=== PATIENT | female | born 1950 | race Caucasian/White ===

== ENCOUNTER 2020-01-12 12:48 | Outpatient (REF) | payer MEDICARE, OTHER, SELFPAY ==
--- NOTE | 2020-01-12 | MM_ITS ---
EXAMINATION: MM SCREENING DIGITAL BREAST TOMOSYNTHESIS, BILATERAL CLINICAL INFORMATION: Screening. Asymptomatic. Prior history reduction mammoplasty 2014. The lifetime risk of breast cancer based on the Tyrer-Cuzick Model is 4%. COMPARISON: Mammography: 08/27/2018, 08/03/2017, 12/06/2016, 07/14/2016 TECHNIQUE: Digital breast tomosynthesis is performed in both the craniocaudal and mediolateral oblique views along with computer-aided detection (CAD). Synthesized 2D images are generated from the tomosynthesis. FINDINGS: There are scattered areas of fibroglandular density (ACR BI-RADS breast composition Category b). Parenchymal pattern is similar to prior studies. There is bilateral stable scarring and scattered oil cysts and benign dystrophic calcifications consistent with the reduction mammoplasty. There is no significant mass or developing density or interval architectural abnormality. No interval abnormal calcifications. No significant changes. MM/MM tomosynthesis screening BI IMPRESSION: No significant changes from prior studies. ASSESSMENT: BI-RADS 2: Benign RECOMMENDATION: Routine annual mammography screening. This patient's information was entered into a reminder system with a target due date for their next mammogram.
--- NOTE | 2020-01-12 | MM_ITS ---
EXAMINATION: BONE DENSITOMETRY CLINICAL INDICATION: Other specified disorders of bone density and structure, multiple sites. COMPARISON: Previous BD dated 08/03/2017 and baseline BD dated 09/16/2007. TECHNIQUE: Using a [employer] DXA System (software version: 13.1) manufactured by [employer], dual-energy x-ray absorptiometry was performed of the lumbar spine and left hip. The images are of good technical quality. Summary results are attached. FINDINGS: AP SPINE L1-L2 (excluding L3 and L4): The data of L1-L4 has been changed to exclude the L3 and L4 vertebral bodies, because degenerative sclerosis at these levels may cause overestimation of lumbar spine density. Current: BMD 1.091 g/cm2, Z-score 0.6, T-score -0.6, normal, 7.3% increase from previous, 25.8% increase from baseline (<5% change is not significant). Prior: BMD 1.017 g/cm2. Baseline: BMD 0.867 g/cm2. LEFT FEMUR, NECK: Current: BMD 0.903 g/cm2, Z-score 0.3, T-score -1.0, normal. Prior: BMD 0.873 g/cm2. Baseline: BMD 0.858 g/cm2. LEFT FEMUR, TOTAL: Current: BMD 0.915 g/cm2, Z-score 0.3, T-score -0.7, normal, 4.3% decrease from previous, 1.4% decrease from baseline (<5% change is not significant). Prior: BMD 0.956 g/cm2. Baseline: BMD 0.928 g/cm2. IDENTIFIED RISK FACTORS: Secondary osteoporosis, thiazide, menopause, hysterectomy. HISTORY OF FRACTURE: None listed. MEDICATIONS: Vitamin D, ERT/SERMS. MM/XR DEXA axial skeleton IMPRESSION: 1. DIAGNOSIS: Normal bone density based on the lowest T-score value of -1.0 in the femoral neck applying World Health Organization criteria. 2. 10-YEAR FRACTURE RISK PREDICTION, FRAX: Major osteoporotic fracture (clinical spine, forearm, hip or shoulder) 8.0%. Hip fracture 0.6%. 3. Treatment Recommendations: NOF guidelines recommend consideration for treatment in postmenopausal women and men age 50 and older presenting with the following: -A hip or vertebral (clinical or morphometric) fracture. -T-score less than or equal to -2.5 at the femoral neck or spine after appropriate evaluation to exclude secondary causes. -Low bone mass at the hip or spine and a 10-year fracture probability by FRAX of greater than or equal to 3% for hip fracture or greater than or equal to 20% for major osteoporotic fracture based on the [place] adapted WHO algorithm. 4. Other Recommendations: All treatment decisions require clinical judgment and consideration of individual patient factors, including patient preferences, comorbidities, previous drug use, risk factors not captured in the FRAX model (e.g. frailty, falls, vitamin D deficiency, increased bone turnover, interval significant decline in bone density) and possible under or overestimation of fracture risk by FRAX. FUTURE SCAN RECOMMENDATION: People with diagnosed cases of osteoporosis or at high risk for fracture should have regular bone mineral density tests. For patients eligible for Medicare, routine testing is allowed once every 2 years. The testing frequency can be increased to one year for patients who have rapidly progressing disease, those who are receiving or discontinuing medical therapy to restore bone mass, or have additional risk factors.
== END 2020-01-12 12:49 | disposition home or self-care (01) ==
LOC: HO.MAMMO 12:48
PROVIDERS: PCP Internal Medicine; Visit Provider Internal Medicine
DX: Z13.820 Encounter for screening for osteoporosis (principal); Z12.31 Encounter for screening mammogram for malignant neoplasm of breast; M17.0 Bilateral primary osteoarthritis of knee; M47.816 Spondylosis without myelopathy or radiculopathy, lumbar region; G89.4 Chronic pain syndrome; M85.89 Other specified disorders of bone density and structure, multiple sites; Z78.0 Asymptomatic menopausal state; Z98.890 Other specified postprocedural states; Z79.899 Other long term (current) drug therapy
CPT/HCPCS: 77063; 77067; 77080; 99213

== ENCOUNTER → 2020-06-28 08:47 | Outpatient (BNVA) | payer MEDICARE, OTHER, SELFPAY | PROVIDERS: PCP Internal Medicine; Visit Provider Anesthesiology ==

== ENCOUNTER → 2020-07-12 08:18 | Outpatient (BNVA) | payer MEDICARE, OTHER, SELFPAY | PROVIDERS: PCP Internal Medicine; Visit Provider Anesthesiology | DX: M47.816 Spondylosis without myelopathy or radiculopathy, lumbar region (principal); M17.0 Bilateral primary osteoarthritis of knee; G89.4 Chronic pain syndrome; Z79.899 Other long term (current) drug therapy | CPT/HCPCS: 99212 ==

== ENCOUNTER → 2020-07-29 09:19 | Outpatient (BNVA) | payer MEDICARE, OTHER, SELFPAY | PROVIDERS: PCP Internal Medicine; Visit Provider Anesthesiology | DX: M47.816 Spondylosis without myelopathy or radiculopathy, lumbar region (principal); M17.0 Bilateral primary osteoarthritis of knee; G89.4 Chronic pain syndrome | CPT/HCPCS: 99212 ==

== ENCOUNTER → 2020-08-19 08:24 | Outpatient (BNVA) | payer MEDICARE, OTHER, SELFPAY | PROVIDERS: PCP Internal Medicine; Visit Provider Anesthesiology | DX: M47.816 Spondylosis without myelopathy or radiculopathy, lumbar region (principal); M17.0 Bilateral primary osteoarthritis of knee; G89.4 Chronic pain syndrome | CPT/HCPCS: 99212 ==

== ENCOUNTER → 2020-09-16 14:34 | Outpatient (BNVA) | payer MEDICARE, OTHER, SELFPAY | PROVIDERS: PCP Internal Medicine; Visit Provider Anesthesiology | DX: M96.1 Postlaminectomy syndrome, not elsewhere classified (principal); M47.816 Spondylosis without myelopathy or radiculopathy, lumbar region; M17.0 Bilateral primary osteoarthritis of knee; G62.9 Polyneuropathy, unspecified; G89.4 Chronic pain syndrome; Z88.8 Allergy status to other drugs, medicaments and biological substances | CPT/HCPCS: 99212 ==

== ENCOUNTER → 2020-10-18 08:30 | Outpatient (BNVA) | payer MEDICARE, OTHER, SELFPAY | PROVIDERS: PCP Internal Medicine; Visit Provider Anesthesiology | DX: M47.816 Spondylosis without myelopathy or radiculopathy, lumbar region (principal); M17.0 Bilateral primary osteoarthritis of knee; G89.4 Chronic pain syndrome; Z87.891 Personal history of nicotine dependence | CPT/HCPCS: 99212; J3300 ==

== ENCOUNTER → 2020-11-15 08:15 | Outpatient (BNVA) | payer MEDICARE, OTHER, SELFPAY | PROVIDERS: PCP Internal Medicine; Visit Provider Anesthesiology | DX: Z51.81 Encounter for therapeutic drug level monitoring (principal); M47.816 Spondylosis without myelopathy or radiculopathy, lumbar region; M17.0 Bilateral primary osteoarthritis of knee; G89.4 Chronic pain syndrome | CPT/HCPCS: 99212 ==

== ENCOUNTER 2020-11-23 06:31 | Outpatient (REF) | payer MEDICARE, OTHER, SELFPAY | END 2020-11-23 06:32 | disposition home or self-care (01) | LOC: HO.RADIR 06:31 | PROVIDERS: Visit Provider Anesthesiology | DX: Z13.89 Encounter for screening for other disorder (principal) ==

== ENCOUNTER → 2020-12-15 08:45 | Outpatient (BNVA) | payer MEDICARE, OTHER, SELFPAY | PROVIDERS: PCP Internal Medicine; Visit Provider Anesthesiology | DX: Z51.81 Encounter for therapeutic drug level monitoring (principal); M47.816 Spondylosis without myelopathy or radiculopathy, lumbar region; M17.0 Bilateral primary osteoarthritis of knee; G89.4 Chronic pain syndrome | CPT/HCPCS: 99212 ==

== ENCOUNTER 2020-12-28 06:13 | Outpatient (REF) | payer MEDICARE, OTHER, SELFPAY ==
--- NOTE | ~2020-12-28 | FL_ITS ---
EXAMINATION: XR FLUOROSCOPY WITH IMAGES CLINICAL INFORMATION: Spondylosis without myelopathy or radiculopathy. COMPARISON: None. TECHNIQUE: Fluoroscopy performed by Dr. Stratton. Fluoroscopy time: 0.3 minutes DAP: 1.42 Gycm2 Images: 2 FL/FL guidance in treatment room FINDINGS/IMPRESSION: Fluoroscopy was performed for procedural guidance. Please refer to the procedure report for more detailed findings.
== END 2020-12-28 06:14 | disposition home or self-care (01) ==
LOC: HO.RADIR 06:13
PROVIDERS: Visit Provider Anesthesiology
DX: M47.816 Spondylosis without myelopathy or radiculopathy, lumbar region (principal); G89.4 Chronic pain syndrome; M17.0 Bilateral primary osteoarthritis of knee; I10 Essential (primary) hypertension; Z79.899 Other long term (current) drug therapy
CPT/HCPCS: 62323; J3300; Q9967

== ENCOUNTER → 2021-01-12 08:58 | Outpatient (BNVA) | payer MEDICARE, OTHER, SELFPAY | PROVIDERS: PCP Internal Medicine; Visit Provider Anesthesiology | DX: Z51.81 Encounter for therapeutic drug level monitoring (principal); M47.816 Spondylosis without myelopathy or radiculopathy, lumbar region; M17.0 Bilateral primary osteoarthritis of knee; G89.4 Chronic pain syndrome | CPT/HCPCS: 99212 ==

== ENCOUNTER 2021-02-01 07:20 | Outpatient (REF) | payer MEDICARE, OTHER, SELFPAY ==
--- NOTE | ~2021-02-01 | MM_ITS ---
EXAMINATION: MM SCREENING DIGITAL BREAST TOMOSYNTHESIS, BILATERAL CLINICAL INFORMATION: Screening. Asymptomatic. Prior reduction mammoplasty 2014. The lifetime risk of breast cancer based on the Tyrer-Cuzick Model is 4%. COMPARISON: Mammography: 01/12/2020, 08/27/2018, 08/03/2017 TECHNIQUE: Digital breast tomosynthesis is performed in both the craniocaudal and mediolateral oblique views along with computer-aided detection (CAD). Synthesized 2D images are generated from the tomosynthesis. FINDINGS: There are scattered areas of fibroglandular density (ACR BI-RADS breast composition Category b). Parenchymal pattern is similar to prior studies and there is no interval mass or architectural abnormality or abnormal calcifications. Again, there are postsurgical changes with stable scarring and oil cysts and benign dystrophic calcifications consistent with the prior reduction mammoplasty. Nodularity central upper outer right breast is stable. Nodularity mid inner left breast is decreased. The axilla are unremarkable. MM/MM tomosynthesis screening BI IMPRESSION: No significant changes from prior exams. ASSESSMENT: BI-RADS 2: Benign RECOMMENDATION: Routine annual mammography screening. This patient's information was entered into a reminder system with a target due date for their next mammogram.
== END 2021-02-01 07:21 | disposition home or self-care (01) ==
LOC: HO.MAMMO 07:20
PROVIDERS: Visit Provider Internal Medicine
DX: Z12.31 Encounter for screening mammogram for malignant neoplasm of breast (principal)
CPT/HCPCS: 77063; 77067

== ENCOUNTER → 2021-02-14 08:38 | Outpatient (BNVA) | payer MEDICARE, OTHER, SELFPAY | PROVIDERS: PCP Internal Medicine; Visit Provider Anesthesiology | DX: Z51.81 Encounter for therapeutic drug level monitoring (principal); M47.816 Spondylosis without myelopathy or radiculopathy, lumbar region; M17.0 Bilateral primary osteoarthritis of knee; G89.4 Chronic pain syndrome | CPT/HCPCS: 99212 ==

== ENCOUNTER → 2021-03-17 08:22 | Outpatient (BNVA) | payer MEDICARE, OTHER, SELFPAY | PROVIDERS: PCP Internal Medicine; Visit Provider Anesthesiology | DX: Z51.81 Encounter for therapeutic drug level monitoring (principal); M47.816 Spondylosis without myelopathy or radiculopathy, lumbar region; M17.0 Bilateral primary osteoarthritis of knee; G89.4 Chronic pain syndrome | CPT/HCPCS: 99212 ==

== ENCOUNTER 2021-04-12 07:29 | Outpatient (REF) | payer MEDICARE, OTHER, SELFPAY ==
--- NOTE | ~2021-04-12 | FL_ITS ---
EXAMINATION: XR FLUOROSCOPY WITH IMAGES CLINICAL INFORMATION: Spondylosis with without myelopathy or radiculopathy. COMPARISON: None. TECHNIQUE: Fluoroscopy performed by Elizabeth Carl. Fluoroscopy time: 0.1 minutes DAP: 0.569 Gycm2 Images: 2 FINDINGS: There are 2 images AP and lateral of the sacrum revealing needle positioned caudally and contrast opacifying posterior epidural space. Visualized sacral and coccygeal bones are unremarkable. The SI joints are symmetrical and normal. FL/FL guidance in treatment room IMPRESSION: Fluoroscopy was provided to referring physician for pain management.
== END 2021-04-12 07:30 | disposition home or self-care (01) ==
LOC: HO.RADIR 07:29
PROVIDERS: Visit Provider Anesthesiology
DX: M47.816 Spondylosis without myelopathy or radiculopathy, lumbar region (principal); M17.0 Bilateral primary osteoarthritis of knee; G89.4 Chronic pain syndrome; M51.37 Other intervertebral disc degeneration, lumbosacral region
CPT/HCPCS: 62323; J3300; Q9967

== ENCOUNTER → 2021-04-14 08:39 | Outpatient (BNVA) | payer MEDICARE, OTHER, SELFPAY | PROVIDERS: PCP Internal Medicine; Visit Provider Anesthesiology ==

== ENCOUNTER → 2021-05-11 08:48 | Outpatient (BNVA) | payer MEDICARE, OTHER, SELFPAY | PROVIDERS: PCP Internal Medicine; Visit Provider Anesthesiology | DX: Z51.81 Encounter for therapeutic drug level monitoring (principal); F11.20 Opioid dependence, uncomplicated; M47.816 Spondylosis without myelopathy or radiculopathy, lumbar region; M17.0 Bilateral primary osteoarthritis of knee; G89.4 Chronic pain syndrome | CPT/HCPCS: 99212 ==

== ENCOUNTER → 2021-06-08 08:34 | Outpatient (BNVA) | payer MEDICARE, OTHER, SELFPAY | PROVIDERS: PCP Internal Medicine; Visit Provider Anesthesiology | DX: Z51.81 Encounter for therapeutic drug level monitoring (principal); F11.20 Opioid dependence, uncomplicated; M47.816 Spondylosis without myelopathy or radiculopathy, lumbar region; M17.0 Bilateral primary osteoarthritis of knee; G89.4 Chronic pain syndrome | CPT/HCPCS: 99212 ==

== ENCOUNTER → 2021-07-07 08:17 | Outpatient (BNVA) | payer MEDICARE, OTHER, SELFPAY | PROVIDERS: PCP Internal Medicine; Visit Provider Anesthesiology | DX: G89.4 Chronic pain syndrome (principal); M47.816 Spondylosis without myelopathy or radiculopathy, lumbar region; M17.0 Bilateral primary osteoarthritis of knee; M51.36 Other intervertebral disc degeneration, lumbar region; Z79.891 Long term (current) use of opiate analgesic | CPT/HCPCS: 99212 ==

== ENCOUNTER → 2021-08-04 08:33 | Outpatient (BNVA) | payer MEDICARE, OTHER, SELFPAY | PROVIDERS: PCP Internal Medicine; Visit Provider Anesthesiology | DX: Z79.899 Other long term (current) drug therapy (principal) ==

== ENCOUNTER 2021-08-19 05:46 | Outpatient (REF) | payer MEDICARE, OTHER, SELFPAY ==
--- NOTE | ~2021-08-19 | FL_ITS ---
EXAMINATION: XR FLUOROSCOPY WITH IMAGES CLINICAL INFORMATION: Lumbar radiculopathy COMPARISON: April 12, 2021 TECHNIQUE: Fluoroscopy performed by Hayley Colvin. Fluoroscopy time: 0.6 minutes DAP: 3.85 Gycm2 Images: 4 FINDINGS: Contrast is seen caudal to be sacrum with needles in place. FL/FL guidance in treatment room IMPRESSION: Fluoroscopy performed in the operating room for pain management procedure.
== END 2021-08-19 05:47 | disposition home or self-care (01) ==
LOC: HO.RADIR 05:46
PROVIDERS: Visit Provider Internal Medicine
DX: G89.4 Chronic pain syndrome (principal); M51.36 Other intervertebral disc degeneration, lumbar region; M51.16 Intervertebral disc disorders with radiculopathy, lumbar region
CPT/HCPCS: 62323; J3300

== ENCOUNTER → 2021-09-01 08:47 | Outpatient (BNVA) | payer MEDICARE, OTHER, SELFPAY | PROVIDERS: PCP Internal Medicine; Visit Provider Anesthesiology | DX: G89.4 Chronic pain syndrome (principal); M47.816 Spondylosis without myelopathy or radiculopathy, lumbar region; M17.0 Bilateral primary osteoarthritis of knee; M51.36 Other intervertebral disc degeneration, lumbar region; M70.62 Trochanteric bursitis, left hip; Z79.891 Long term (current) use of opiate analgesic | CPT/HCPCS: 99212 ==

== ENCOUNTER → 2021-09-29 09:06 | Outpatient (BNVA) | payer MEDICARE, OTHER, SELFPAY | PROVIDERS: PCP Internal Medicine; Visit Provider Anesthesiology | DX: M47.816 Spondylosis without myelopathy or radiculopathy, lumbar region (principal); M17.0 Bilateral primary osteoarthritis of knee; G89.4 Chronic pain syndrome; M51.36 Other intervertebral disc degeneration, lumbar region; M70.62 Trochanteric bursitis, left hip; Z79.891 Long term (current) use of opiate analgesic | CPT/HCPCS: 99212 ==

== ENCOUNTER 2021-10-10 06:06 | Outpatient (REF) | payer MEDICARE, OTHER, SELFPAY ==
[2021-10-10 11:35] LABS: Alanine Aminotransferase 12 U/L (0-31); Anion Gap 12 (12-20); Aspartate Amino Transferase 19 U/L (5-31); Blood Urea Nitrogen 13 mg/dL (9-16); Calcium 9.3 mg/dL (8.4-10.2); Carbon Dioxide 27 mmol/L (22-29); Chloride 104 mmol/L (96-108); Cholesterol 195 mg/dL; Estimated Glomerular Filt Rate > 60; Glucose Fasting 96 mg/dL (60-99); HDL Cholesterol 77 mg/dL; LDL Cholesterol Calculated 94 mg/dl; Potassium 4.3 mmol/L (3.3-5.1); Sodium 139 mmol/L (135-145); Triglycerides 123 mg/dL
== END 2021-10-10 06:07 | disposition home or self-care (01) ==
LOC: HO.HMGCLDS 06:06
PROVIDERS: Visit Provider Internal Medicine
DX: I10 Essential (primary) hypertension (principal); M85.89 Other specified disorders of bone density and structure, multiple sites; N95.9 Unspecified menopausal and perimenopausal disorder; E78.5 Hyperlipidemia, unspecified
CPT/HCPCS: 36415; 80048; 80061; 82306; 84450; 84460

== ENCOUNTER → 2021-10-31 08:55 | Outpatient (BNVA) | payer MEDICARE, OTHER, SELFPAY | PROVIDERS: PCP Internal Medicine; Visit Provider Anesthesiology | DX: Z79.899 Other long term (current) drug therapy (principal); Z79.891 Long term (current) use of opiate analgesic | CPT/HCPCS: 99211 ==

== ENCOUNTER → 2021-11-24 09:12 | Outpatient (BNVA) | payer MEDICARE, OTHER, SELFPAY | PROVIDERS: PCP Internal Medicine; Visit Provider Anesthesiology | DX: G89.4 Chronic pain syndrome (principal); M47.816 Spondylosis without myelopathy or radiculopathy, lumbar region; M17.0 Bilateral primary osteoarthritis of knee; M51.36 Other intervertebral disc degeneration, lumbar region; M70.62 Trochanteric bursitis, left hip; Z79.891 Long term (current) use of opiate analgesic | CPT/HCPCS: 99212 ==

== ENCOUNTER 2021-12-21 05:30 | Inpatient (IN) | payer MEDICARE, OTHER, SELFPAY ==
[2021-12-21] VITALS (9 sets, daily range): BP systolic 137–152; BP diastolic 56–88; PULSE 80–93; RESP 14–18; TEMP 36.4–36.8; O2SAT 96–100; BMI 31.1
--- NOTE | ~2021-12-21 | XR_ITS ---
EXAMINATION: XR CHEST CLINICAL INFORMATION: NG tube placement COMPARISON: 09/01/2013 TECHNIQUE: Frontal view of the chest was obtained. FINDINGS: NG tube tip is at the level the GE junction. The proximal port is in the distal esophagus. Low lung volumes. The cardiac silhouette is comparable to previous. Lung sullivan are grossly clear. Some mild left basilar atelectasis likely related to low lung volumes. XR/XR chest 1V IMPRESSION: ET tube tip at the level the GE junction. The proximal port is in the distal esophagus
--- NOTE | ~2021-12-21 | CT_ITS ---
EXAMINATION: CT ABDOMEN AND PELVIS WITHOUT CONTRAST CLINICAL INFORMATION: Abdominal pain with vomiting, question small bowel obstruction COMPARISON: 09/01/2013 TECHNIQUE: Multidetector volumetric imaging was performed from the superior aspect of the liver through the pubic symphysis. Sagittal and coronal reformatted images were obtained on the technologist's workstation. This CT examination was performed using dose optimization techniques as appropriate, variously including the following: *Automated exposure control *Adjustment of mA and/or kV according to patient size (this includes techniques or standardized protocols for targeted exams where dose is matched to indication/reason for exam; i.e. extremities or head) *Use of iterative reconstruction technique DLP: 693 mGy-cm FINDINGS: LUNG BASES: Mild subsegmental atelectasis. Coronary artery calcifications are present. LIVER, GALLBLADDER, AND BILIARY TREE: The liver is normal in size, shape, and attenuation. No focal hepatic lesion or biliary ductal dilatation is present. Patient is status post cholecystectomy. PANCREAS: Unremarkable. SPLEEN: Unremarkable. ADRENAL GLANDS: Unremarkable. KIDNEYS AND URETERS: The kidneys are normal in size, shape, and attenuation. No hydronephrosis, hydroureter, or calculi seen. No perinephric stranding. BLADDER: Unremarkable. GASTROINTESTINAL TRACT: Gastric band is present across the proximal stomach. There are several dilated fluid-filled small bowel loops in the left abdomen leading to a somewhat fecalized segment in the central abdomen. Beyond this region, bowel loops are collapsed, and overall configuration is consistent with small bowel obstruction. Large bowel is unremarkable. Patient appears to be status post appendectomy. Trace free fluid noted in the pelvis. No free air is seen. ABDOMINAL WALL: No significant hernia is appreciated. LYMPH NODES: Normal. VASCULAR: Moderately extensive atherosclerotic calcification is present. PELVIC VISCERA: Status post hysterectomy. OSSEOUS STRUCTURES: Degenerative changes are present in the lower lumbar spine. CT/CT abdomen pelvis wo IV con IMPRESSION: Small bowel obstruction with transition point in the region of a fecalized segment in the central abdomen. Trace free fluid in the pelvis, presumably reactive.
--- NOTE | 2021-12-21 05:56 | ED_ITS ---
HPI - Abdominal Pain General Chief Complaint: Abdominal Pain Stated Complaint: nausea and vomiting with abdominal pain Time Seen by Provider: 12/21/21 05:56 Source: patient Mode of arrival: EMS Limitations: no limitations History of Present Illness HPI narrative: Patient is 71 years old with history of IBS status post appendectomy and cholecystectomy been having cramping diffuse pain since yesterday 11:00 with na usea did not eat any food because of abdominal discomfort since pain started not passing any gas. No history of small-bowel obstruction in the past no fever no chills since 17:00 patient been vomiting multiple times mostly bilious patient had normal bowel movements yesterday morning Related Data Home Medications Medication Instructions Recorded Confirmed estradiol 2 mg tablet (Estrace) 2 mg PO DAILY 07/12/20 10/31/21 cholecalciferol (vitamin D3) 25 25 mcg PO DAILY 08/19/20 10/31/21 mcg (1,000 unit) capsule docusate sodium 100 mg capsule 100 mg PO DAILY 08/19/20 10/31/21 (Colace) magnesium 250 mg tablet 250 mg PO DAILY 12/15/20 10/31/21 Previous Rx's Medication Instructions Recorded atorvastatin 20 mg tablet 20 mg PO DAILY #90 tabs 03/22/21 hydrochlorothiazide 12.5 mg tablet 12.5 mg PO DAILY #90 tabs 03/22/21 trazodone 100 mg tablet 100 mg PO BEDTIME #90 tabs 03/22/21 amoxicillin 500 mg tablet 2,000 mg PO ONCE PRN prophylaxis 08/02/21 #4 tabs hydrocodone 5 mg-acetaminophen 325 1 tab PO BID PRN pain 30 days #60 11/24/21 mg tablet tabs Allergies Allergy/AdvReac Type Severity Reaction Status Date / Time buprenorphine [Belbuca] Allergy Unknown stomach Verified 11/24/21 09:28 upset NSAIDS Allergy Unknown Upset Verified 11/24/21 09:28 stomach Review of Systems Review of Systems Yes all other systems are reviewed and are negative PMFSH Past Medical History Medical History Bilateral primary osteoarthritis of knee Chronic pain syndrome Disc degeneration, lumbar Dyslipidemia Essential hypertension Irritable bowel syndrome Osteopenia of multiple sites Prolapse of anterior vaginal 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, lumbar region Surgical History H/O abdominoplasty History of carpal tunnel surgery History of cholecystectomy History of hysterectomy History of laparoscopic appendectomy History of lumbar laminectomy History of reduction mammoplasty History of tonsillectomy Hx of bariatric surgery Family History Family History Mother Diabetes mellitus Essential hypertension Cardiovascular disease Social History Social History Alcohol intake: never Patient Tobacco Use Status: Former Tobacco user Advance Directives: No Advance Directives Information Provided: Yes Physical Exam ED Vital Signs: Vital Signs - 24 hr 12/21/21 05:52 12/21/21 06:00 Temperature 97.9 F Pulse Rate 90 80 Respiratory Rate 18 18 Blood Pressure 140/66 H 149/81 H Pulse Oximetry 96 96 Oxygen Delivery Method Room Air Room Air BMI result Body Mass Index 31.1 Appearance: Alert. Oriented X3. No acute distress. Eyes: PERRLA, No Nystagmus ENT: Pharynx normal. Oral Mucosa moist Neck: Normal inspection. Neck supple. CVS: Normal heart rate and rhythm. Pulses normal. Respiratory: No respiratory distress. Equal air entry bilateral, no wheezing/rales/rhonchi Abdomen: Soft slightly distended with diffuse tenderness no rebound tenderness or guarding bowel sounds are sluggish no mass palpable, no CVA tenderness Skin: Skin warm and dry. Normal skin color. Normal skin turgor. Extremities: No lower extremity edema. No calf tenderness Neuro: Oriented X 3. No motor deficit. No sensory deficit.No cerebellar signs , cranial nerves II-XII intact MDM - Abdominal Pain MDM Narrative Medical decision making narrative: 715 Patient's small-bowel obstruction with prior history of appendectomy and cholecystectomy likely the adhesions causing the obstruction will put NG tube surgery consult. Labs are still pending will call surgery for admission Imaging Data CT scan - abdomen: Attestation: I personally reviewed and interpreted this imaging study as follows: Radiologist's impression: CT/CT abdomen pelvis wo IV con IMPRESSION: Small bowel obstruction with transition point in the region of a fecalized segment in the central abdomen. Trace free fluid in the pelvis, presumably reactive. Discharge Plan Discharge Clinical Impression: Small bowel obstruction Patient Disposition: Still a Patient Prescriptions: No Action hydrochlorothiazide 12.5 mg tablet 12.5 mg PO DAILY Qty: 90 4RF trazodone 100 mg tablet 100 mg PO BEDTIME Qty: 90 4RF atorvastatin 20 mg tablet 20 mg PO DAILY Qty: 90 4RF amoxicillin 500 mg tablet 2,000 mg PO ONCE PRN (Reason: prophylaxis) Qty: 4 0RF Rx Instructions: take one hour prior to procedure estradiol [Estrace] 2 mg tablet 2 mg PO DAILY docusate sodium [Colace] 100 mg capsule 100 mg PO DAILY cholecalciferol (vitamin D3) 25 mcg (1,000 unit) capsule 25 mcg PO DAILY magnesium 250 mg tablet 250 mg PO DAILY hydrocodone-acetaminophen 5-325 mg tablet 1 tab PO BID PRN (Reason: pain) 30 Days Qty: 60 0RF
[2021-12-21] MEDS: 0.9 % Sodium Chloride 1,000 ML 999 ML IV (06:20)
[2021-12-21] MEDS: ondansetron HCL 4 MG/2 ML VIAL IVPUSH ×2 (06:25→09:25)
[2021-12-21] MEDS: Morphine Sulfate 4 MG/ML CARTRIDGE IVPUSH (06:25)
--- OUTSIDE RECORDS SUMMARY | 2021-12-21 06:28 | XMS_ITS ---
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 Problem Other hammer M20.42 Active 7657642 [id number] toe(s) (acquired), left foot Problem Primary M19.072 Active 391755421 osteoarthritis, left ankle and foot ALLERGIES Substance Reaction Event Type Date Status Advil Unknown Drug Allergy May, Active NSAIDs stomach pain Drug Allergy May, Active Aspirin Unknown Drug Allergy May, Active ENCOUNTERS Encounter Location Date Diagnosis [address] Aug, [place] [address] [facility], [place] [address] [facility] May, [place] in left foot M79.672 [facility] [place] ; Primary osteo arthritis, [address] left ankle and f oot M19.072 ; Metata rsalgia, left foot M77.42 ; 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 and Other hammer toe (s) (acquired), left foot M20.[address] Sep, [place] in left foot M79.672 [place] ; Primary osteo arthritis, [address] left ankle and f oot M19.072 ; Metata rsalgia, left foot M77.42 and 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 Aug, [place] [address] July, [place] [address] July, [place] n in left foot M79.672 [place] ; Primary osteo arthritis, [address] left ankle and f oot M19.072 ; Metata rsalgia, left foot M77.42 and 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 July, Reshma n in Limb 729.5 ; [facility] [place] Calcaneal spur 726.73 and [address] Foreign Body 7[address] Aug, Ank le Sprain 845.00 ; [place] Arthralgia 719. 40 and [address] Arthritis - Dege nerative 719.[address] Aug, [place] [address] IMMUNIZATIONS Vaccine Route Administration Date Status COVID-19 [employer] Unknown Jan 14, 2021 Administered SOCIAL HISTORY Qualifiers Date Former Smoker REASON FOR REFERRAL FUNCTIONAL STATUS PLAN OF CARE Activity Details Pending Test X ray : Foot, left 3V Pending Test X ray : Foot, left 3V Pending Test X ray : Foot, right 2V Pending Test X ray : Ankle, right 3V Future/Pending Procedure , [id number]/INJECT, J OINT/BURSA VITAL SIGNS Height 5 ft 2 in in 2021-06-01 Weight 175 lbs 2021-06-01 BMI 32.00 kg/m2 2021-06-01 Heart Rate 80 /min 2013-07-28 Blood pressure systolic 125 mm Hg 2021-06-01 Blood pressure diastolic 76 mm Hg 2021-06-01 MEDICATIONS Medication Instructions Dosage Frequency Start End Duration Statu s Date Date Lipitor 20 MG Orally Once a 1 tablet 24h Not -Long day ing Lyrica 75 MG Active Vicodin 5-300 MG Active Premarin 1.25 MG 24h Not-Long ing traZODone HCl 100 MG Orally Once a 1 tablet 24h 30 d ay(s) Active day at bedtime Methocarbamol 750 MG Orally every 4 1 tablet 4h 30 day(s) Active hrs Estradiol Not-Long ing Atorvastatin Calcium Orally Once a 1 tablet 24h 30 d ay(s) Active 20 MG day Evista Not-Long ing hydroCHLOROthiazide Acti ve 12.5 MG Dulcolax 10 MG Active Estrace 2 MG Orally Daily 1 tablet 30 day(s) Act radha for Three Weeks, 1 Week off Colace 100 MG Orally once 2 capsules 24h Act radha daily Soma Not-Long ing PriLOSEC OTC 20 MG Orally Once a 1 tablet 24h 30 day (s) Active day Walking Wear Daily As 24h Until Active Boot/Pneumatic directed further notice Hyoscyamine Sulfate Orally every 4 5 ml as 4h Active 0.125 MG/5ML hrs needed Vitamin D 2000 UNIT Acti ve PROCEDURES Procedure Date Ordered Result Body Site X-RAY EXAM OF RIGHT FOOT 2V September 05, 2011 X-RAY EXAM OF LEFT FOOT 3V August 05, 2018 DRAIN/INJECT, JOINT/BURSA October 16, 2018 X-RAY EXAM OF LEFT FOOT 3V June 01, 2021 INJ BETAMETHSN ACTAT&SOD PHOSPH-3MG October 16, 2018 AFO ANK GAUNTLT PREFAB W FIT ADJ September 05, 2011 WALKING BOOT PNEUMATIC AND OR VAC August 05, 2018 X-RAY EXAM OF RIGHT ANKLE 3V September 05, 2011 RESULTS No Results REASON FOR VISIT Insurance Providers [facility] Health Member Patient Patient Patient Patient Patient Subscriber Subscriber Subscriber Group Insurance Plan Plan Plan Plan ID Relationship Address Phone Name Date of ID Name Date of No Type Insurance Insurance Insurance Coverage to Subscriber Address Phone Name Dates [facility] [phone] [facility] self Leandra [id number] [place] [address] Medicare National [id number] Medicare self Leandra [id number] [facility] [address] [place] [address] MEDICAL (GENERAL) HISTORY Type Description Date Medical History neuropathy Medical History measles Medical History chicken pox Medical History Arthritis Medical History Back,Hip,and Knee pain Medical History Foreign Body Medical History Ankle Sprain Medical History Arthralgia Medical History Arthritis - Degenerative Medical History Pain in Limb Medical History Calcaneal spur Surgical History left foot delio bunion 2009 Surgical History hysterectomy 2009 Surgical History bladder removal 1988 Surgical History Laminectomy left sciatica 2003 Surgical History tonsillectomy 1971 Surgical History lap band insertion 2004 Surgical History cystocele repair 2012 Surgical History Right shoulder arthroscopy 1989 Surgical History right thumb arthroscopy 2014 Surgical History left thumb arthroscopy 2016 Surgical History Appendectomy 09/01/2013 Surgical History breast reduction and abdominoplasty 11/11 Surgical History Pain Stimulator removed- 3 days [facility] 08/28/2018
--- OUTSIDE RECORDS SUMMARY | 2021-12-21 06:28 | XMS_ITS | Continuity of Care Document ---
:1950 Author Organization Pre Op Overflow Address [address] [facility], [address] [address]- Care Team Providers Name Role Phone Alma IVORY, Debbi Calderon Primary Care Physician Encounter [facility] Date(s): 11/05/19 - 11/12/19 Pre Op Overflow [address] [address]- [facility] Attending Physician: Felipa Swenson MD Referring Physician: Aldair Parr MD Allergies, Adverse Reactions, Alerts Substance Reaction Severity Status buprenorphine1 Active nonsteroidal anti-inflammatory agents2 Active 1Nausea and vgtuzyff9uh upset Medications atorvastatin 20 mg oral tablet 1 tablet = 20 mg, By Mouth, Daily, # 30 tablet, 0 Refills, Maintenance, Tablet Start Date: 12/03/12 Status: OrderedColace Capsule 100 mg, By Mouth, 2 times a day, 02/27/09 0:52:08 Start Date: 02/27/09 Stop Date: 03/28/09 Status: OrderedEstrace 2 mg oral tablet 1 tablet = 2 mg, By Mouth, Daily, 0 Refills, Maintenance, 11/02/17 8:39:30 EDT Start Date: 11/02/17 Status: OrderedHydrochlorothiazide = 12.5 mg, By Mouth, Daily, 0 Refills, Maintenance, 06/27/16 11:03:50 Start Date: 06/27/16 Status: Orderedhyoscyamine 0.125 mg oral tablet 1 tablet = 0.125 mg, By Mouth, 4 times a day, PRN abdominal pain and bloating, 0 Refills, Maintenance Start Date: 12/14/09 Status: OrderedLyrica 75 mg oral capsule = 75 mg, By Mouth, 4 times a day, PRN Pain , Severe, 0 Refills, 02/27/09 0:55:21 Start Date: 02/27/09 Status: Orderedmethocarbamol 750 mg oral tablet 1 tablet = 750 mg, By Mouth, 3 times a day, 0 Refills, Maintenance, 06/27/16 11:04:21 Start Date: 06/27/16 Status: OrderedPremarin Tablet = 0.3 mg, By Mouth, Daily, 0 Refills, Maintenance, 02/27/09 0:55:54 Start Date: 02/27/09 Stop Date: 03/28/09 Status: OrderedPrilosec 20 mg oral enteric coated capsule 1 capsule = 20 mg, By Mouth, Daily, 0 Refills, Maintenance Start Date: 12/14/09 Status: Orderedtrazodone 100 mg oral tablet 1 tablet = 100 mg, By Mouth, Daily at bedtime, PRN Sleep, 0 Refills, Maintenance, 10/28/14 16:48:49 Start Date: 10/28/14 Status: OrderedVicodin 5/500 Tablet 5/300mg, By Mouth, 2 times a day, PRN as needed for pain, 0 Refills, Soft Stop, 02/27/09 0:57:14 Start Date: 02/27/09 Stop Date: 03/06/09 Status: OrderedVitamin D3 1000 intl units oral tablet 1 tablet = 1,000 International_Units, By Mouth, Daily, 0 Refills, Maintenance Start Date: 12/14/09 Status: Ordered Problem List Condition Effective Dates Status Health Status Informant Varicose vein(Confirmed) Active Venous insufficiency(Confirmed) Active Vital Signs Most recent to oldest [Reference Range]: 1 Height 157.48 cm (11/05/19 11:00 AM) Weight 78.4 kg (11/05/19 11:00 AM) Pulse Rate [55-90 bpm] 91 bpm *H* (11/05/19 11:00 AM) Body Mass Index [18.5-24.99] 31.61 *>HHI* (11/05/19 11:00 AM) Blood Pressure [90-138/55-84 mm Hg] 136/85 mm Hg (11/05/19 11:00 AM) Respiratory Rate [16-30 br/min] 15 br/min *L* (11/05/19 11:00 AM) Temperature [96.8-100.4 DegF] 98.1 DegF (11/05/19 11:00 AM) Blood pressure sites Arm, right (11/05/19 11:00 AM) Temperature Route Temporal (11/05/19 11:00 AM) Weight Obtained Via Standing scale (11/05/19 11:00 AM) Social History Social History Type Response Smoking Status Former smoker entered on: 08/11/14 Sex
--- OUTSIDE RECORDS SUMMARY | 2021-12-21 06:28 | XMS_ITS | Continuity of Care Document ---
:1950 Author Organization [facility] Address [address] [place] [address]- Care Team Providers Name Role Phone Alma IVORY, Debbi Calderon Primary Care Physician En[place] [facility] [place] Date(s): 11/04/19 - 12/05/[address] [address]- [facility] Attending Physician: Aldair Parr MD Admitting Physician: Aldair Parr MD Referring Physician: Aldair Parr MD Allergies, Adverse Reactions, Alerts Substance Reaction Severity Status buprenorphine1 Active nonsteroidal anti-inflammatory agents2 Active 1Nausea and revvqysj1fj upset Medications acetaminophen-HYDROcodone 325 mg-5 mg oral tablet 1 tablet, By Mouth, Every 4 hours, PRN Pain , Mild, 0 Refills, Maintenance, 11/20/19 12:49:00 EDT, Tablet, Partial fill upon patient request Start Date: 11/20/19 Status: Orderedatorvastatin 20 mg oral tablet 1 tablet = 20 mg, By Mouth, Daily, # 30 tablet, 0 Refills, Maintenance, Tablet Start Date: 12/03/12 Status: OrderedColace Capsule 100 mg, By Mouth, 2 times a day, 02/27/09 0:52:08 Start Date: 02/27/09 Stop Date: 03/28/09 Status: OrderedDulcolax 5 mg oral enteric coated tablet 2 tablet = 10 mg, By Mouth, Daily, PRN as needed for constipation, # 20 tablet, 0 Refills, Maintenance, 11/19/19 7:10:00 EDT, CR Tablet Start Date: 11/19/19 Status: OrderedEstrace 2 mg oral tablet 1 [...] 0 Refills, Maintenance Start Date: 12/14/09 Status: OrderedMiraLax Powder 1 pack/packet = 17 Gm, By Mouth, Daily, 0 Refills, Maintenance, 11/20/19 12:49:00 EDT, Powder Start Date: 11/20/19 Status: OrderedPrilosec 20 mg oral enteric coated capsule 1 capsule = 20 mg, By Mouth, Daily, 0 Refills, Maintenance Start Date: 12/14/09 Status: Orderedsenna 187 mg oral tablet 1 tablet = 8.6 mg, By Mouth, Daily at bedtime, 0 Refills, Maintenance, 11/20/19 12:49:00 EDT, Tablet Start Date: 11/20/19 Status: Orderedtrazodone 100 mg oral tablet 1 tablet = 100 mg, By Mouth, Daily at bedtime, PRN Sleep, 0 Refills, Maintenance, 10/28/14 16:48:49 Start Date: 10/28/14 Status: OrderedVitamin D3 1000 intl units oral tablet 1 tablet = 1,000 International_Units, By Mouth, Daily, 0 Refills, Maintenance Start Date: 12/14/09 Status: Orderedwarfarin 1 mg oral tablet See Instructions, Take 1-10 tablet By Mouth Daily as instructed by DA, # 150 tablet, 0 Refills, Maintenance, 11/20/19 12:34:00 EDT, Tablet, [facility] 3, 157.48, cm, 11/20/19 6:54:00 EDT,Height, 72.27, kg, 11/19/19 11:59:00 EDT, Dry We... Start Date: 11/20/19 Status: Ordered Problem List Condition Effective Dates Status Health Status Informant Varicose vein(Confirmed) Active Venous insufficiency(Confirmed) Active Social History Social History Type Response Smoking Status Former smoker entered on: 08/11/14 Sex
--- OUTSIDE RECORDS SUMMARY | 2021-12-21 06:28 | XMS_ITS | Continuity of Care Document ---
:1950 Author Organization [facility] Address [address] [place] [id number]- Care Team Providers Name Role Phone Alma IVORY, Debbi Calderon Primary Care Physician [phone] Encounter [facility] [place] Date(s): 11/05/19 - 12/05/[address] [address]- [facility] Attending Physician: Admstephane, Swapna Admitting Physician: Admtr, Swapna Referring Physician: Admtr, Ar8 Allergies, Adverse Reactions, Alerts Substance Reaction Severity Status buprenorphine1 Active nonsteroidal anti-inflammatory agents2 Active 1Nausea and bcertkpi1ng upset Medications acetaminophen-HYDROcodone 325 mg-5 mg oral [...] 0 Refills, Maintenance, 11/20/19 12:34:00 EDT, Tablet, [facility] 3, 157.48, cm, 11/20/19 6:54:00 EDT,Height, 72.27, kg, 11/19/19 11:59:00 EDT, Dry We... Start Date: 11/20/19 Status: Ordered Problem List Condition Effective Dates Status Health Status Informant Varicose vein(Confirmed) Active Venous insufficiency(Confirmed) Active Social History Social History Type Response Smoking Status Former smoker entered on: 08/11/14 Sex
--- OUTSIDE RECORDS SUMMARY | 2021-12-21 06:28 | XMS_ITS | Continuity of Care Document ---
:1950 Author Organization [facility] Address [address] [address]- Care Team Providers Name Role Phone Alma IVORY, Debbi Calderon Primary Care Physician [phone] En[place] [facility] [place] 11/05/19 - 12/05/19 [facility] [address] [address] Attending Physician: Swapna Badillo Admitting Physician: Swapna Badillo Referring Physician: AdmtrSwapna Allergies, Adverse Reactions, Alerts Substance Reaction Severity Status buprenorphine1 Active nonsteroidal anti-inflammatory agents2 Active 1Nausea and jevwqxpo8hv upset Medications acetaminophen-HYDROcodone 325 mg-5 mg oral [...] 0 Refills, Maintenance, 11/20/19 12:34:00 EDT, Tablet, [facility] 3, 157.48, cm, 11/20/19 6:54:00 EDT,Height, 72.27, kg, 11/19/19 11:59:00 EDT, Dry We... Start Date: 11/20/19 Status: Ordered Problem List Condition Effective Dates Status Health Status Informant Varicose vein(Confirmed) Active Venous insufficiency(Confirmed) Active Social History Social History Type Response Smoking Status Former smoker entered on: 08/11/14 Sex
--- OUTSIDE RECORDS SUMMARY | 2021-12-21 06:28 | XMS_ITS | Continuity of Care Document ---
:1950 Author Organization [facility] Address [address] [place] [address]- Care Team Providers Name Role Phone Alma IVORY, Debbi Calderon Primary Care Physician Encounter [facility] [place] Date(s): 11/19/19 - 11/21/[address] [address]- [facility] Discharge Disposition: A-Transfer VNA/Home Health Attending Physician: Aldair Parr MD Admitting Physician: Aldair Parr MD Referring Physician: Aldair Parr MD Allergies, Adverse Reactions, Alerts Substance Reaction Severity Status buprenorphine1 Active nonsteroidal anti-inflammatory agents2 Active 1Nausea and rjjkkhpi9uq upset Medications acetaminophen-HYDROcodone 325 mg-5 mg oral [...] EDT, CR Tablet Start Date: 11/19/19 Status: Orderedenoxaparin 30 mg/0.3 mL injectable solution 0.3 mL = 30 mg, Subcutaneous Injection, 2 times a day, for 7 days, Discontinue when INR is greater than 1.8, # 4.2 mL, 0 Refills, Acute 11/27/19 12:35:00 EDT, 11/20/19 12:35:00 EDT, Injection, [facility] 3, 157.48, cm, 11/20/19 6:54:00 EDT... Start Date: 11/20/19 Stop Date: 11/27/19 Status: OrderedEstrace 2 mg oral tablet 1 [...] 0 Refills, Maintenance, 11/20/19 12:34:00 EDT, Tablet, [facility] 3, 157.48, cm, 11/20/19 6:54:00 EDT,Height, 72.27, kg, 11/19/19 11:59:00 EDT, Dry We... Start Date: 11/20/19 Status: Ordered Problem List Condition Effective Dates Status Health Status Informant Varicose vein(Confirmed) Active Venous insufficiency(Confirmed) Active Results Radiology Reports Exam Date Time Procedure Performing Provider Status 11/19/19 10:37 PM Knee 1 or 2 Views Right Landry Roy; Afua (Ve rified) Notes:(Knee 1 or 2 Views Right) Reason For Exam: PostopRESULT: Knee 1 or 2 Views Right Knee 1 or 2 Views Right Reason: Postop; Clinical Question(s): Other:; Implant Position; Special Instructions: Do today at 2200, No flexed knee in the lateral position. Keep leg straight; 2 Views COMPARISON: None. FINDINGS: Status post total right knee arthroplasty. Distal femoral and proximal tibial components are well-positioned without complication. Expected postsurgical soft tissue changes. Surgical drain terminates in the suprapatellar region. IMPRESSION: Total right knee arthroplasty without complication. WSN: [id number] Ordering Physician: Seth Ty Dictated By: Anthony Crane DO Dictated Date/Time: 11/19/19 10:43 p Reviewed By: Anthony Crane DO Signed By: Anthony Crane DO Signed Date/Time: 11/19/19 10:43 pm Transcribed By: MAIA Transcribed Date/Time: 11/19/19 10:42 pm Vital Signs Most recent to oldest 1 2 3 [Reference Range]: Height 157.48 cm 157.48 cm 157.48 cm (11/21/19 7:47 AM) (11/20/19 4:56 PM) (11/20/19 6:54 A M) Weight 72.27 kg 72.27 kg (11/19/19 11:59 AM) (11/19/19 7:02 AM) Oxygen Saturation [94-100 %] 100 % 97 % 98 % (11/21/19 7:47 AM) (11/21/19 3:00 AM) (11/20/19 7:00 P M) Pulse Rate [55-90 bpm] 92 bpm 91 bpm 90 bpm *H* *H* (11/20/19 7:00 PM) (11/21/19 7:47 AM) (11/21/19 3:00 AM) Body Mass Index [18.5-24.99] 29.14 29.14 *H* *H* (11/19/19 11:59 AM) (11/19/19 7:02 AM) Blood Pressure [90-138/55-84 mm 141/65 mm Hg 108/61 mm Hg 108/53 mm Hg Hg] *H* (11/21/19 3:00 AM) (11/20/19 7:00 PM ) (11/21/19 7:47 AM) Respiratory Rate [16-30 br/min] 18 br/min 18 br/min 18 br/min (11/21/19 12:01 PM) (11/21/19 8:54 AM) (11/21/19 7:54 AM) Temperature [96.8-100.4 DegF] 98.6 DegF 99.0 DegF 98 .7 DegF (11/21/19 7:47 AM) (11/21/19 3:00 AM) (11/20/19 7:00 P M) Liters per Minute 4 L/min 4 L/min 4 L/min (11/19/19 12:21 PM) (11/19/19 12:18 PM) (11/19/19 12:0 9 PM) Mode of Delivery (Oxygen) Room air Room air Room a ir (11/21/19 7:47 AM) (11/21/19 3:00 AM) (11/20/19 7:00 P M) Blood pressure sites Arm, left Arm, left Arm, left (11/21/19 7:47 AM) (11/21/19 3:00 AM) (11/20/19 7:00 P M) Temperature Route Oral Oral Oral (11/21/19 7:47 AM) (11/21/19 3:00 AM) (11/20/19 7:00 P M) Dry Weight 72.27 kg 72.27 kg (11/19/19 11:59 AM) (11/19/19 7:02 AM) Social History Social History Type Response Smoking Status Former smoker entered on: 08/11/14 Sex
[2021-12-21 08:07] LABS: Appearance Urine Clear; Color Urine Yellow; Glucose Urine UA Negative (Negative); Leukocyte Esterase Urine Negative (Negative); Nitrite Urine Negative (Negative); PH 7.5 (5.0-9.0); Urine Blood Negative (Negative); Urine Ketones 15 mg/dL (Negative); Urine Protein Negative (Neg-Trace)
[2021-12-21 08:17] LABS: COVID-19 Test Negative (Negative)
[2021-12-21 08:37] LABS: MANUAL DIFF FLAG NO
[2021-12-21 08:42] LABS: Basophils Percent Auto 0.3 % (0-2); Eosinophils Percent Auto 0.1 % (0-4); Hematocrit 34.1 % (37.0-47.0); Hemoglobin 11.4 g/dl (12.0-16.0); Imm Gran Abs Auto 0.03 X10*3/uL (0.00-0.03); Imm Gran Pct Auto 0.3 % (0.0-0.4); Lymphocytes Absolute Auto 2.2 X10*3/uL (1.2-4.9); Lymphocytes Percent Auto 25.3 % (20-40); Mean Corpuscular HGB Conc 33.4 g/dl (31.0-35.0); Mean Corpuscular Hemoglobin 30.5 pg (27.0-33.0); Mean Corpuscular Volume 91.2 fL (80.0-98.0); Mean Platelet Volume 10.8 fL (9.4-12.3); Monocytes Absolute Auto 0.5 X10*3/uL (0.1-1.2); Monocytes Percent Auto 5.5 % (2-11); Neutrophils Percent Auto 68.5 % (45-73); Platelet Count 329 X10*3/uL (160-400); Red Blood Count 3.74 X10*6/uL (4.20-5.50); White Blood Count 8.8 X10*3/uL (4.8-10.8)
[2021-12-21 08:59] LABS: Lactic Acid 1.8 mmol/L (0.5-2.0)
[2021-12-21 09:04] LABS: Alanine Aminotransferase 12 U/L (0-31); Albumin Level 3.9 g/dL (3.5-5.0); Alkaline Phosphatase 52 U/L (39-117); Anion Gap 18 (12-20); Aspartate Amino Transferase 19 U/L (5-31); Bilirubin Direct 0.2 mg/dL (0.0-0.5); Bilirubin Total 0.4 mg/dL (0.0-1.0); Blood Urea Nitrogen 13 mg/dL (9-16); Carbon Dioxide 23 mmol/L (22-29); Chloride 103 mmol/L (96-108); Creatinine Clr Calc Pharmacy 75.1; Estimated Glomerular Filt Rate > 60; Glucose Random 107 mg/dL (60-115); Lipase 46 U/L (8-78); Potassium 4.2 mmol/L (3.3-5.1); Sodium 140 mmol/L (135-145); Total Protein 6.5 g/dL (6.5-8.0)
[2021-12-21 09:06] LABS: Alanine Aminotransferase 12 U/L (0-31); Albumin Level 3.9 g/dL (3.5-5.0); Alkaline Phosphatase 51 U/L (39-117); Anion Gap 19 (12-20); Aspartate Amino Transferase 20 U/L (5-31); Bilirubin Total 0.5 mg/dL (0.0-1.0); Blood Urea Nitrogen 13 mg/dL (9-16); Calcium 8.7 mg/dL (8.4-10.2); Carbon Dioxide 23 mmol/L (22-29); Chloride 102 mmol/L (96-108); Creatinine Clr Calc Pharmacy 77.3; Estimated Glomerular Filt Rate > 60; Glucose Random 106 mg/dL (60-115); Lipase 46 U/L (8-78); Potassium 4.2 mmol/L (3.3-5.1); Sodium 140 mmol/L (135-145); Total Protein 6.5 g/dL (6.5-8.0)
--- NOTE | 2021-12-21 09:09 | PHA.MEDREC ---
Pharmacy Consult ? Medication Reconciliation Pharmacy has completed the medication reconciliation.
[2021-12-21] MEDS: Morphine Sulfate 4 MG/ML CARTRIDGE 3 MG IVPUSH (09:25)
[2021-12-21] MEDS: Lactated Ringers 1,000 ML 80 ML IVCONT ×2 (09:33→20:29)
--- NOTE | 2021-12-21 09:42 | PC.NURSE ---
patient a/ox4 . pearrla . heart rate regular at 85 beats per minute . skin pink warn and dry . abdomen soft , rebound tenderness noted in left quadrant . hypoactive bowel sounds noted only in right quadrant . patient reports 9/10 pain level medicated with prn morphine as ordered and zofran . NG placed by DR Escobar and verified by XRAY . IV lactic Ringer running at 80ml/hr started . patient aware of plan of care .
--- NOTE | 2021-12-21 10:41 | HO.PM.IMCN ---
History of Present Illness Data of Consult Service Date: 12/21/21 Requesting physician: Corey Escobar Primary Care Provider: Unknown Physician HPI Reason for consult: Medical management 71 year female with history of IBS, chronic leg edema on HCTZ, HLD on lipitor, history ruptured apendice s/p surgery, s/p CCY and lap band who presented with abdominal pain, n/v and vomitting which she initially thought was her IBS but was worsening and therefore came in and is found to have SBO by CT of abdomen and has NGT and is now admitted to the surgical service by Dr. Escobar.. No fever of chils, no sob, no chest pain, no JESSICA Review of Systems Review of Systems: Gen: no fever Resp: no sob, no cough CV: no chest, no JESSICA, no leg edema GI: + n/v, +abd pain Neuro: No confusion Yes all other systems are reviewed and are negative [facility] Medical History Bilateral primary osteoarthritis of knee Chronic pain syndrome Disc degeneration, lumbar Dyslipidemia Essential hypertension Irritable bowel syndrome Osteopenia of multiple sites Prolapse of anterior vaginal 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, lumbar region Family History Mother Diabetes mellitus Essential hypertension Cardiovascular disease Surgical History H/O abdominoplasty History of carpal tunnel surgery History of cholecystectomy History of hysterectomy History of laparoscopic appendectomy History of lumbar laminectomy History of reduction mammoplasty History of tonsillectomy Hx of bariatric surgery Social History Alcohol intake: never Patient Tobacco Use Status: Former Tobacco user Advance Directives: No Advance Directives Information Provided: Yes Meds Allergies Allergy/AdvReac Type Severity Reaction Status Date / Time buprenorphine [Belbuca] Allergy Unknown stomach Verified 11/24/21 09:28 upset NSAIDS Allergy Unknown Upset Verified 11/24/21 09:28 stomach Active Medications: Current Medications Lactated Ringer's (Lr) 1,000 mls @ 80 mls/hr IVCONT .[id number] CROW Last Admin: 12/21/21 09:33 Dose: 80 mls/hr Morphine Sulfate (Morphine Sulfate 4 Mg/Ml Cartridge) 3 mg IVPUSH Q3H PRN; Protocol PRN Reason: Pain, Severe (Pain Scale 7-10) Last Admin: 12/21/21 09:25 Dose: 3 mg Ondansetron HCl (Ondansetron Hcl 4 Mg/2 Ml Vial) 4 mg IVPUSH Q6H PRN PRN Reason: nausea Last Admin: 12/21/21 09:25 Dose: 4 mg Pharmacy Consult (Consult Rx Perform Med Rec) 1 each MISCELLANE ONCE PRN PRN Reason: Consult order Sodium Chloride (0.9 % Sodium Chloride Flush 3 Ml Syringe) 3 ml IVFLUSH [facility] Home Medications Medication Instructions Recorded Confirmed Last Taken Type estradiol 2 mg tablet (Estrace) 2 mg PO DAILY 07/12/20 12/21/21 12/20/21 History cholecalciferol (vitamin D3) 25 25 mcg PO DAILY 08/19/20 12/21/21 12/20/21 History mcg (1,000 unit) capsule docusate sodium 100 mg capsule 100 mg PO DAILY 08/19/20 12/21/21 12/20/21 History (Colace) magnesium 250 mg tablet 250 mg PO DAILY 12/15/20 12/21/21 12/20/21 History bisacodyl 5 mg tablet,delayed 5 mg PO DAILY 12/21/21 12/21/21 12/20/21 History release (Dulcolax (bisacodyl)) Physical Exam Vital Signs and Narrative: Vital Signs: Last Vital Signs Temp 97.5 F 12/21/21 10:29 Pulse 88 12/21/21 10:29 Resp 17 12/21/21 10:29 BP 152/80 H 12/21/21 10:29 Pulse Ox 96 12/21/21 10:29 O2 Del Method 12/21/21 10:29 BMI result Body Mass Index 31.1 Const: Other: Constitutional: Alert, in no distress, o Mental Status: Oriented to person, place and time. Eyes: Pupils are equal, round and reactive to light. Ear, Nose and Throat: Oropharynx clear, mucous membranes moist. Ears and nose without eformities. has NGT in Respiratory: Clear to auscultation. No wheezing, rales or rhonchi. Cardiovascular: S1 S2 regular. No murmurs, rubs or gallops. Gastrointestinal: Abdomen soft, +tender, non-distended. Nol bowel sounds.? Neurologic: Cranial nerves II-XII grossly intact. No focal neurological deficits. Moves all extremities spontaneously.? Skin: No rashes or lesions.? Musculoskeletal: No cyanosis or clubbing. Psychiatric: Normal mood and affect? Results Labs CBC and Chem 7: 12/21/21 08:28 12/21/21 08:28 Labs: Laboratory Results - last 24 hr 12/21/21 12/21/21 12/21/21 07:53 07:53 08:28 MCV 91.2 MCH 30.5 MCHC 33.4 RDW 13.0 Plt Count 329 MPV 10.8 Immature Gran % (Auto) 0.3 Neut % (Auto) 68.5 Lymph % (Auto) 25.3 Irwin % (Auto) 5.5 Eos % (Auto) 0.1 Baso % (Auto) 0.3 Lymph # (Auto) 2.2 Irwin # (Auto) 0.5 Eos # (Auto) 0.0 Baso # (Auto) 0.0 Abs Immat Gran (auto) 0.03 Absolute Neuts (auto) 6.0 Absolute Nucleated RBC 0.000 Nucleated RBC % (auto) 0.0 Anion Gap Estim Creat Clear Calc Estimated GFR Random Glucose Lactic Acid Calcium Total Bilirubin Direct Bilirubin AST ALT Alkaline Phosphatase Total Protein Albumin Lipase Urine Color Yellow Urine Appearance Clear Urine pH 7.5 Ur Specific [place] 1.010 Urine Protein Negative Urine Glucose (UA) Negative Urine Ketones 15 Urine Blood Negative Urine Nitrite Negative Ur Leukocyte Esterase Negative COVID-19 ([facility]ATRELL) Negative COVID-19 Clin Com See Note 12/21/21 12/21/21 12/21/21 08:28 08:28 08:28 MCV MCH MCHC RDW Plt Count MPV Immature Gran % (Auto) Neut % (Auto) Lymph % (Auto) Irwin % (Auto) Eos % (Auto) Baso % (Auto) Lymph # (Auto) Irwin # (Auto) Eos # (Auto) Baso # (Auto) Abs Immat Gran (auto) Absolute Neuts (auto) Absolute Nucleated RBC Nucleated RBC % (auto) Anion Gap 18 19 Estim Creat Clear Calc 75.1 77.3 Estimated GFR > 60 > 60 Random Glucose 107 106 Lactic Acid 1.8 Calcium 9.0 8.7 Total Bilirubin 0.4 0.5 Direct Bilirubin 0.2 AST 19 20 ALT 12 12 Alkaline Phosphatase 52 51 Total Protein 6.5 6.5 Albumin 3.9 3.9 Lipase 46 46 Urine Color Urine Appearance Urine pH Ur Specific [place] Urine Protein Urine Glucose (UA) Urine Ketones Urine Blood Urine Nitrite Ur Leukocyte Esterase COVID-19 ([facility]RELL) COVID-19 Clin Com Imaging Radiologist's Impressions: Impressions Abdomen/Pelvis CT 12/21/21 06:41 IMPRESSION: Small bowel obstruction with transition point in the region of a fecalized segment in the central abdomen. Trace free fluid in the pelvis, presumably reactive. Chest X-Ray 12/21/21 08:52 IMPRESSION: ET tube tip at the level the GE junction. The proximal port is in the distal esophagus Assessment and Plan (1) Essential hypertension: Status: Acute (2) Dyslipidemia: Status: Acute (3) Small bowel obstruction: Status: Acute Plan 71 year female with history of IBS, chronic leg edema on HCTZ, HLD on lipitor, history ruptured apendice s/p surgery, s/p CCY and lap band who presented with abdominal pain, n/v and vomitting and found to have SBO and presently been managed with NGT 1/SBO--management by surgery, at this point conservative mangement but should surgery be indicated, she would at moderate risk with no need for additional cardiopulmonary testing other than routine ECG. 2/ HTN--Continue HCTZ when able to take PO and if needed IV med such hydralazine for SBP > 180 3/HLD- Lipitor when able to take oral Will follow
--- NOTE | 2021-12-21 11:05 | P.HPGS_ITS ---
History of Present Illness History of Present Illness Date of Service: 12/21/21 <Yesy Bowen PA-C - Last Filed: 12/21/21 11:26> 12/21/21 <Corey Escobar MD - Last Filed: 12/21/21 18:51> Chief complaint: partial small bowel obstruction <Yesy Bowen PA-C - Last Filed: 12/21/21 11:26> Narrative: Leandra Galvez is a 71 year old female with PMH including IBS, dyslipidemia who presented to the ED this morning with complaints of severe abdominal pain and vomiting. She reports that her pain started yesterday late morning. She thought it was an IBS flare at first. However the pain progresses and became severe which is unsual for her. The pain was located in her central/left abdomen and was sharp. She became significantly bloated and had multiple episodes of vomiting. Her last bowel movement was yesterday and was normal. She does not think she has passed flatus since yesterday as well. The meena peacock has had multiple abdominal surgeries including hysterectomy, appendectomy, cholecystectomy and lap band which is still present and inflated. Due to the severity of the pain and vomiting, she sought care in the ED. Work up included CT scan which demonstrated several dilated fluid-filled small bowel loops in the left abdomen leading to a somewhat fecalized segment in the central abdomen with distal loops are collapsed. Her labs were WNL including WBC count and lactic acid. NGT was inserted in the ED and admission to surgery was requested. <Yesy Bowen PA-C - Last Filed: 12/21/21 11:26> Review of Systems Constitutional: Constitutional: Denies chills, Denies fever(s) and Denies malaise <Yesy Bowen PA-C - Last Filed: 12/21/21 11:26> ENT: Denies dizziness <ILIANA Jung Last Filed: 12/21/21 11:26> Cardiovascular: Cardiovascular: Denies dyspnea <ILIANA Jung Last Filed: 12/21/21 11:26> Respiratory: Respiratory: Denies cough, Denies dyspnea and Denies wheezing <ILIANA Jung Last Filed: 12/21/21 11:26> Gastrointestinal: Gastrointestinal: Reports as per HPI, Denies change in bowel habits, Denies coffee ground emesis and Denies diarrhea <Yesy Bowen PA-C Last Filed: 12/21/21 11:26> Genitourinary: Genitourinary: Denies hematuria and Denies dysuria <Yesy Bowen PA-C Last Filed: 12/21/21 11:26> Integumentary/Breasts: Skin/Breast: Denies rash <Yesy Bowen PA-C Last Filed: 12/21/21 11:26> Neurologic: Denies dizziness <Yesy Bowen PA-C Last Filed: 12/21/21 11:26> Allergic/Immunologic: Allergic/Immunologic: Denies wheezing <Yesy Bowen PA-C Last Filed: 12/21/21 11:26> PMFSH Past Medical History Medical History: Medical History Bilateral primary osteoarthritis of knee Chronic pain syndrome Disc degeneration, lumbar Dyslipidemia Essential hypertension Irritable bowel syndrome Osteopenia of multiple sites Prolapse of anterior vaginal 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, lumbar region <Yesy Bowen PA-C Last Filed: 12/21/21 11:26> Family History Family History: Family History Mother Diabetes mellitus Essential hypertension Cardiovascular disease <Yesy Bowen PA-C Last Filed: 12/21/21 11:26> Surgical History Surgical History: Surgical History H/O abdominoplasty History of carpal tunnel surgery History of cholecystectomy History of hysterectomy History of laparoscopic appendectomy History of lumbar laminectomy History of reduction mammoplasty History of tonsillectomy Hx of bariatric surgery <Yesy Bowen PA-C Last Filed: 12/21/21 11:26> Social History Social History: Social History Alcohol intake: never Patient Tobacco Use Status: Former Tobacco user Advance Directives: No Advance Directives Information Provided: Yes <Yesy Bowen PA-C - Last Filed: 12/21/21 11:26> Meds Allergies/Adverse reactions: Allergies Allergy/AdvReac Type Severity Reaction Status Date / Time buprenorphine [Belbuca] Allergy Unknown stomach Verified 11/24/21 09:28 upset NSAIDS Allergy Unknown Upset Verified 11/24/21 09:28 stomach <Yesy Bowen PA-C - Last Filed: 12/21/21 11:26> Active Medications: Current Medications Lactated Ringer's (Lr) 1,000 mls @ 80 mls/hr IVCONT .[id number] [facility] Last Admin: 12/21/21 09:33 Dose: 80 mls/hr Morphine Sulfate (Morphine Sulfate 4 Mg/Ml Cartridge) 3 mg IVPUSH Q3H PRN; Protocol PRN Reason: Pain, Severe (Pain Scale 7-10) Last Admin: 12/21/21 09:25 Dose: 3 mg Ondansetron HCl (Ondansetron Hcl 4 Mg/2 Ml Vial) 4 mg IVPUSH Q6H PRN PRN Reason: nausea Last Admin: 12/21/21 09:25 Dose: 4 mg Pharmacy Consult (Consult Rx Perform Med Rec) 1 each MISCELLANE ONCE PRN PRN Reason: Consult order Sodium Chloride (0.9 % Sodium Chloride Flush 3 Ml Syringe) 3 ml IVFLUSH QSHIFT [facility] <Yesy Bowen PA-C - Last Filed: 12/21/21 11:26> Home medications: Home Medications Medication Instructions Recorded Confirmed Last Taken Type estradiol 2 mg tablet (Estrace) 2 mg PO DAILY 07/12/20 12/21/21 12/20/21 History cholecalciferol (vitamin D3) 25 25 mcg PO DAILY 08/19/20 12/21/21 12/20/21 History mcg (1,000 unit) capsule docusate sodium 100 mg capsule 100 mg PO DAILY 08/19/20 12/21/21 12/20/21 History (Colace) magnesium 250 mg tablet 250 mg PO DAILY 12/15/20 12/21/21 12/20/21 History bisacodyl 5 mg tablet,delayed 5 mg PO DAILY 12/21/21 12/21/21 12/20/21 History release (Dulcolax (bisacodyl)) <ILIANA Jung Last Filed: 12/21/21 11:26> Physical Exam Vital Signs: Vital Signs: Last Vital Signs Temp 97.5 F 12/21/21 10:29 Pulse 88 12/21/21 10:29 Resp 17 12/21/21 10:29 BP 152/80 H 12/21/21 10:29 Pulse Ox 96 12/21/21 10:29 O2 Del Method 12/21/21 10:29 BMI result Body Mass Index 31.1 <ILIANA Jung Last Filed: 12/21/21 11:26> Const: General: no acute distress and alert <ILIANA Jung Last Filed: 12/21/21 11:26> Orientation/consciousness: patient oriented x3 <ILIANA Jung Last Filed: 12/21/21 11:26> HEENT: Other: NGT in left nare <ILIANA Jung Last Filed: 12/21/21 11:26> Resp: Effort & Inspection: normal respiratory effort <ILIANA Jung Last Filed: 12/21/21 11:26> Cardio: Rate: regular rate <ILIANA Jung Last Filed: 12/21/21 11:26> GI: Inspection: Yes distended, Yes scar (multiple well healed abdominal scars) and Yes other (lap band port just lateral to umbilicus on right) <ILIANA Jung Last Filed: 12/21/21 11:26> Palpation (GI): Soft to palpation, Tenderness to palpation present (GI) (central and left mid abdomen), no guarding and not rigid <ILIANA Jung Last Filed: 12/21/21 11:26> Percussion: Yes tympanic to percussion <ILIANA Jung Last Filed: 12/21/21 11:26> Skin: General skin exam: no rashes or lesions noted <ILIANA Jung Last Filed: 12/21/21 11:26> Neuro: General: patient oriented x3 <ILIANA Jung Last Filed: 12/21/21 11:26> Results Results Labs: Short CBC 12/21/21 Range/Units 08:28 WBC 8.8 (4.8-10.8) X10*3/uL Hgb 11.4 L (12.0-16.0) g/dl Hct 34.1 L (37.0-47.0) % Plt Count 329 (160-400) X10*3/uL BMP 12/21/21 12/21/21 08:28 08:28 Sodium 140 140 Potassium 4.2 4.2 Chloride 103 102 Carbon Dioxide 23 23 BUN 13 13 Creatinine 0.68 0.66 Calcium 9.0 8.7 Liver Function 12/21/21 12/21/21 Range/Units 08:28 08:28 Total Bilirubin 0.4 0.5 (0.0-1.0) mg/dL Direct Bilirubin 0.2 (0.0-0.5) mg/dL AST 19 20 (5-31) U/L ALT 12 12 (0-31) U/L Alkaline Phosphatase 52 51 (39-117) U/L Albumin 3.9 3.9 (3.5-5.0) g/dL Urine 12/21/21 Range/Units 07:53 Urine Color Yellow Urine Appearance Clear Urine pH 7.5 (5.0-9.0) Ur Specific [place] 1.010 (1.005-1.025) Urine Protein Negative (Neg-Trace) mg/dL Urine Glucose (UA) Negative (Negative) mg/dL <ILIANA Jung Last Filed: 12/21/21 11:26> Additional studies: CT SCAN ABD/PELVIS- Gastric band is present across the proximal stomach. There are several dilated fluid-filled small bowel loops in the left abdomen leading to a somewhat fecalized segment in the central abdomen. Beyond this region, bowel loops are collapsed, and overall configuration is consistent with small bowel obstruction. Large bowel is unremarkable. CXR- ET tube tip at the level the GE junction. The proximal port is in the distal esophagus. <ILIANA Jung Last Filed: 12/21/21 11:26> Assessment and Plan (1) Small bowel obstruction: Status: Acute <Yesy Bowen PA-C - Last Filed: 12/21/21 11:26> patient admitted earlier for abdominal pain reviewed CT scan images - suggestive of small-bowel obstruction, possible transition point in the mid abdomen she does have multiple abdominal surgeries in the past so likely etiology would be postop adhesions she did have tenderness exam otherwise benign NG tube placed IV fluids NPO bowel rest serial abdominal exam seen and examined independently - agree with MEENA Bowen <Corey Escobar MD - Last Filed: 12/21/21 18:51> 71 year old female with hx of multiple abdominal surgeries presenting with abdominal pain and nausea/vomiting since yesterday with distended abdomen and CT scan demonstrating dilated small bowel loops with possible transition point in left abdomen, consistent with SBO likely secondary to adhesions from prior surgery. The patient was admitted to the surgical service for further treatment of the SBO. The patient is distended but has an otherwise benign abdomen. Will continue supportive management in hopes the obstruction resolves. An NGT was inserted in the ED. This will be continued to low intermittent suction for bowel decompression. The CXR did show the tip of the NGT in the esophagus therefore it was advanced by journalists and other writers. She will be kept NPO, on IVF and IV analgesics as needed for pain. She was encouraged to ambulate. Further plan dependent on clinical course. Patient comfortable with plan. <Yesy Bowen PA-C - Last Filed: 12/21/21 11:26> Quality Stroke Does the patient have a stroke diagnosis?: No <Yesy Bowen PA-C - Last Filed: 12/21/21 11:26> VTE Prior VTE?: No <Yesy Bowen PA-C - Last Filed: 12/21/21 11:26> VTE Risk Level:: Medical - moderate - high <Yesy Bowen PA-C - Last Filed: 12/21/21 11:26> VTE Device Contraindication: N/A - Device Ordered <Yesy Bowen PA-C - Last Filed: 12/21/21 11:26> VTE Drug Contraindication: N/A - Med Ordered <Yesy Bowen PA-C - Last Filed: 12/21/21 11:26> Procedures Date of Service Date of Service: 12/21/21 <Yesy Bowen PA-C - Last Filed: 12/21/21 11:26>
[2021-12-21] MEDS: 0.9 % Sodium Chloride Flush 3 ML SYRINGE IVFLUSH (16:09)
--- NOTE | 2021-12-21 18:48 | PM.EVENT ---
Event Note Date of Service: 12/21/21 Event Note: Patient examined multiple times today now feels better says abdominal pain has improved markedly states she is now passing flatus abdomen soft, not tender NG tube output scanty will likely be able to pull out her NG tube tomorrow will continue current care for now
--- NOTE | 2021-12-21 19:59 | PC.NURSE ---
Pt A&OX3, pleasant and cooperative. Speech is clear and cooperative. BS+. Pt passing flatus. Denies n/v/d. NGT in left nare to wall suction. Denies pain. Chloraseptic prn. Ambulates with a steady gait. Will continue to monitor.
--- NOTE | 2021-12-22 07:48 | P.PNGS_ITS ---
Subjective Subjective Date of Service: 12/22/21 Interval history: passing flatus pain much improved asking to have NGT removed feels much better Physical Exam Vital Signs: Vital Signs: Last Vital Signs Temp 97.9 F 12/21/21 15:56 Pulse 84 12/21/21 23:39 Resp 16 12/21/21 23:39 BP 137/65 12/21/21 23:39 Pulse Ox 98 12/21/21 23:39 O2 Del Method 12/21/21 23:39 BMI result Body Mass Index 31.1 Const: Other: looks General: comfortable and no acute distress Cardio: Rate: regular rate GI: Inspection: No distended Palpation (GI): Soft to palpation, not firm and no guarding Objective Data Active Medications Lactated Ringer's (Lr) 1,000 mls @ 80 mls/hr IVCONT .[id number] [facility] Last Admin: 12/21/21 20:29 Dose: 80 mls/hr Documented By: GUILLERMO Morphine Sulfate (Morphine Sulfate 4 Mg/Ml Cartridge) 3 mg IVPUSH Q3H PRN; Protocol PRN Reason: Pain, Severe (Pain Scale 7-10) Last Admin: 12/21/21 09:25 Dose: 3 mg Documented By: CHA Multi-Ingred Medicated Throat [place] (Throat [place], Medicated 20 Ml Bottle) 1 spray MUCOUS MEM Q2H PRN PRN Reason: Sore Throat Last Admin: 12/22/21 05:01 Dose: 1 spray Documented By: GUILLERMO Ondansetron HCl (Ondansetron Hcl 4 Mg/2 Ml Vial) 4 mg IVPUSH Q6H PRN PRN Reason: nausea Last Admin: 12/21/21 09:25 Dose: 4 mg Documented By: CHA Pharmacy Consult (Consult Rx Perform Med Rec) 1 each MISCELLANE ONCE PRN PRN Reason: Consult order Sodium Chloride (0.9 % Sodium Chloride Flush 3 Ml Syringe) 3 ml IVFLUSH QSHIFT [facility] Last Admin: 12/22/21 00:21 Dose: Not Given Documented By: GUILLERMO Non-Admin Reason: IV Running Labs CBC & Chem 7: 12/21/21 08:28 12/21/21 08:28 Labs: Laboratory Results - last 24 hr 12/21/21 12/21/21 12/21/21 07:53 07:53 08:28 MCV 91.2 MCH 30.5 MCHC 33.4 RDW 13.0 Plt Count 329 MPV 10.8 Immature Gran % (Auto) 0.3 Neut % (Auto) 68.5 Lymph % (Auto) 25.3 [place] % (Auto) 5.5 Eos % (Auto) 0.1 Baso % (Auto) 0.3 Lymph # (Auto) 2.2 [place] # (Auto) 0.5 Eos # (Auto) 0.0 Baso # (Auto) 0.0 Abs Immat Gran (auto) 0.03 Absolute Neuts (auto) 6.0 Absolute Nucleated RBC 0.000 Nucleated RBC % (auto) 0.0 Anion Gap Estim Creat Clear Calc Estimated GFR Random Glucose Lactic Acid Calcium Total Bilirubin Direct Bilirubin AST ALT Alkaline Phosphatase Total Protein Albumin Lipase Urine Color Yellow Urine Appearance Clear Urine pH 7.5 Ur Specific [place] 1.010 Urine Protein Negative Urine Glucose (UA) Negative Urine Ketones 15 Urine Blood Negative Urine Nitrite Negative Ur Leukocyte Esterase Negative COVID-19 ([facility]RE[facility]) Negative COVID-19 Clin Com See Note 12/21/21 12/21/21 12/21/21 08:28 08:28 08:28 MCV MCH MCHC RDW Plt Count MPV Immature Gran % (Auto) Neut % (Auto) Lymph % (Auto) [place] % (Auto) Eos % (Auto) Baso % (Auto) Lymph # (Auto) [place] # (Auto) Eos # (Auto) Baso # (Auto) Abs Immat Gran (auto) Absolute Neuts (auto) Absolute Nucleated RBC Nucleated RBC % (auto) Anion Gap 18 19 Estim Creat Clear Calc 75.1 77.3 Estimated GFR > 60 > 60 Random Glucose 107 106 Lactic Acid 1.8 Calcium 9.0 8.7 Total Bilirubin 0.4 0.5 Direct Bilirubin 0.2 AST 19 20 ALT 12 12 Alkaline Phosphatase 52 51 Total Protein 6.5 6.5 Albumin 3.9 3.9 Lipase 46 46 Urine Color Urine Appearance Urine pH Ur Specific [place] Urine Protein Urine Glucose (UA) Urine Ketones Urine Blood Urine Nitrite Ur Leukocyte Esterase COVID-19 ([facility]) COVID-19 Clin Com Procedures Date of Service Date of Service: 12/22/21 Progress Note: A&P Assessment and plan (1) Small bowel obstruction: Status: Acute Assessment and Plan: feels much better passing flatus well NGT output minimal likely will dc NGT later OOB much improved clinically labs ok Time Spent With Patient Time: Total time spent is greater than 50% in coordination of care (as documented) at patient's floor/unit and/or counseling patient: Quality Stroke Does the patient have a stroke diagnosis?: No VTE Prior VTE?: No VTE Risk Level:: Medical - moderate - high VTE Device Contraindication: N/A - Device Ordered VTE Drug Contraindication: N/A - Med Ordered
[2021-12-22 07:51] VITALS: BP 135/68; PULSE 80; RESP 17; TEMP 36.8; O2SAT 95
[2021-12-22] MEDS: Lactated Ringers 1,000 ML 80 ML IVCONT ×2 (08:02→22:52)
[2021-12-22 08:22] LABS: Hemoglobin 11.7 g/dl (12.0-16.0); Mean Corpuscular HGB Conc 33.4 g/dl (31.0-35.0); Mean Corpuscular Hemoglobin 30.1 pg (27.0-33.0); Mean Platelet Volume 10.8 fL (9.4-12.3); Platelet Count 332 X10*3/uL (160-400); Red Blood Count 3.89 X10*6/uL (4.20-5.50); Red Cell Distribution Width 13.2 % (11.0-16.0); White Blood Count 9.7 X10*3/uL (4.8-10.8)
[2021-12-22 08:31] LABS: Anion Gap 15 (12-20); Blood Urea Nitrogen 12 mg/dL (9-16); Calcium 8.8 mg/dL (8.4-10.2); Carbon Dioxide 27 mmol/L (22-29); Chloride 102 mmol/L (96-108); Creatinine Clr Calc Pharmacy 77.3; Estimated Glomerular Filt Rate > 60; Glucose Random 91 mg/dL (60-115); Potassium 3.5 mmol/L (3.3-5.1); Sodium 140 mmol/L (135-145)
--- NOTE | 2021-12-22 11:14 | P.PNIM_ITS ---
Subjective Subjective Date of Service: 12/22/21 Interval History: f/u on medical management interval hsitory: feels better, passing gas but no bm Review of Systems no n/v no abd pain Physical Exam Vital Signs: Vital Signs: Last Vital Signs Temp 98.2 F 12/22/21 07:51 Pulse 80 12/22/21 07:51 Resp 17 12/22/21 07:51 BP 135/68 12/22/21 07:51 Pulse Ox 95 12/22/21 07:51 O2 Del Method 12/22/21 07:51 BMI result Body Mass Index 31.1 Const: Other: General: AO X 3, no acute distress Resp: CTA bilateral CVS: S1,S2,RRR GI: +BS, NT, no distention Skin: No rash Neuro: motor grossly intact Psych: appropriate affect Objective Data Active Medications Lactated Ringer's (Lr) 1,000 mls @ 80 mls/hr IVCONT .[id number] [facility] Last Admin: 12/22/21 08:02 Dose: 80 mls/hr Documented By: INNA Morphine Sulfate (Morphine Sulfate 4 Mg/Ml Cartridge) 3 mg IVPUSH Q3H PRN; Protocol PRN Reason: Pain, Severe (Pain Scale 7-10) Last Admin: 12/21/21 09:25 Dose: 3 mg Documented By: CHA Multi-Ingred Medicated Throat [place] (Throat [place], Medicated 20 Ml Bottle) 1 spray MUCOUS MEM Q2H PRN PRN Reason: Sore Throat Last Admin: 12/22/21 07:48 Dose: 1 spray Documented By: INNA Ondansetron HCl (Ondansetron Hcl 4 Mg/2 Ml Vial) 4 mg IVPUSH Q6H PRN PRN Reason: nausea Last Admin: 12/21/21 09:25 Dose: 4 mg Documented By: CHA Pharmacy Consult (Consult Rx Perform Med Rec) 1 each MISCELLANE ONCE PRN PRN Reason: Consult order Sodium Chloride (0.9 % Sodium Chloride Flush 3 Ml Syringe) 3 ml IVFLUSH QSHIFT [facility] Last Admin: 12/22/21 08:04 Dose: Not Given Documented By: INNA Non-Admin Reason: IV Running Labs CBC & Chem 7: 12/22/21 07:40 12/22/21 07:40 Labs: Laboratory Results - last 24 hr 12/22/21 12/22/21 07:40 07:40 MCV 90.0 MCH 30.1 MCHC 33.4 RDW 13.2 Plt Count 332 MPV 10.8 Absolute Nucleated RBC 0.000 Nucleated RBC % (auto) 0.0 Anion Gap 15 Estim Creat Clear Calc 77.3 Estimated GFR > 60 Random Glucose 91 Calcium 8.8 Assessment and Plan (1) Essential hypertension: Status: Acute Plan 71 year female with history of IBS, chronic leg edema on HCTZ, HLD on lipitor, history ruptured apendice s/p surgery, s/p CCY and lap band who presented with abdominal pain, n/v and vomitting and found to have SBO and presently been managed with NGT 1/SBO--management by surgery, at this point conservative mangement but should surgery be indicated, she would at moderate risk? with no need for additional cardiopulmonary testing other than routine ECG. 2/ HTN--Continue HCTZ when able to take PO and if needed IV med such hydralazine for SBP > 180, presently BP is within normal 3/HLD- Lipitor when able to take oral Will follow Quality Stroke Does the patient have a stroke diagnosis?: No VTE Prior VTE?: No VTE Risk Level:: Medical - moderate - high VTE Device Contraindication: N/A - Device Ordered VTE Drug Contraindication: N/A - Med Ordered
[2021-12-22 11:49] VITALS: BP 130/68; PULSE 75; RESP 18; TEMP 36.7; O2SAT 95
--- NOTE | 2021-12-22 14:17 | MHC.CM.PN ---
Addendum entered by Allie Azar 12/22/21 14:42: SON WILL TRANSPORT HOME ON DC Addendum entered by Allie Azar 12/22/21 14:25: HCP ON FILE HERE Original Note: [facility] DELIVERED CM MET WITH PATIENT IN ED OVERFLOW. LIVES ALONE IN A SINGLE FAMILY HOME. NO DME OR PRIOR SERVICES.HAS COPY OF HCP AT HOME NAMING HER SON, WILL REQUEST BE BROUGHT IN. COVID VAX X [address] THAKKAR. DP : TO RETURN HOME , NO SERVICES, CM WILL FOLLOW .
[2021-12-22 15:42] VITALS: BP 139/77; PULSE 77; RESP 18; TEMP 36.8; O2SAT 97
--- NOTE | 2021-12-22 16:47 | PM.EVENT ---
Event Note Date of Service: 12/22/21 Event Note: Says she has been passing flatus had BMs feels well DC NG tube abdomen remained soft and benign and not distended okay to have clear liquids for tonight
--- NOTE | 2021-12-22 20:20 | PC.NURSE ---
patient awake and alert. skin pwd resp even and non labored. speaking in full, clear sentences. reports intermittent lower abdominal cramping. tolerating clear liquids, reports having a bowel movement this afternoon. denies nausea. active bowel sounds x 4
[2021-12-22 21:36] VITALS: BP 133/68; PULSE 81; RESP 16; TEMP 36.8; O2SAT 95
[2021-12-22 23:42] VITALS: BP 124/66; PULSE 83; RESP 16; TEMP 36.7; O2SAT 94
[2021-12-22] MEDS: 0.9 % Sodium Chloride Flush 3 ML SYRINGE IVFLUSH (23:42)
--- NOTE | 2021-12-23 08:00 | P.PNGS_ITS ---
Subjective Subjective Date of Service: 12/23/21 Interval history: says she had a good night continues stool passed flatus has BMs tolerating clear liquids well denies abdominal pain Physical Exam Vital Signs: Vital Signs: Last Vital Signs Temp 98.0 F 12/22/21 23:42 Pulse 83 12/22/21 23:42 Resp 16 12/22/21 23:42 BP 124/66 12/22/21 23:42 Pulse Ox 94 12/22/21 23:42 O2 Del Method 12/22/21 23:42 BMI result Body Mass Index 31.1 Const: General: comfortable and no acute distress Orientation/consciousness: patient oriented x3 Neck: Neck: Yes no lymphadenopathy Resp: Auscultation: clear to auscultation bilaterally Cardio: Rhythm: regular rhythm GI: Palpation (GI): Soft to palpation, nontender and no guarding Neuro: General: patient oriented x3 Objective Data Active Medications Lactated Ringer's (Lr) 1,000 mls @ 80 mls/hr IVCONT .[id number] [facility] Last Admin: 12/22/21 22:52 Dose: 80 mls/hr Documented By: RONALD Morphine Sulfate (Morphine Sulfate 4 Mg/Ml Cartridge) 3 mg IVPUSH Q3H PRN; Protocol PRN Reason: Pain, Severe (Pain Scale 7-10) Last Admin: 12/21/21 09:25 Dose: 3 mg Documented By: CHA Multi-Ingred Medicated Throat Strawn (Throat Strawn, Medicated 20 Ml Bottle) 1 spray MUCOUS MEM Q2H PRN PRN Reason: Sore Throat Last Admin: 12/22/21 07:48 Dose: 1 spray Documented By: INNA Ondansetron HCl (Ondansetron Hcl 4 Mg/2 Ml Vial) 4 mg IVPUSH Q6H PRN PRN Reason: nausea Last Admin: 12/21/21 09:25 Dose: 4 mg Documented By: CHA Pharmacy Consult (Consult Rx Perform Med Rec) 1 each MISCELLANE ONCE PRN PRN Reason: Consult order Sodium Chloride (0.9 % Sodium Chloride Flush 3 Ml Syringe) 3 ml IVFLUSH QSHIFT [facility] Last Admin: 12/22/21 23:42 Dose: 3 ml Documented By: RONALD Labs CBC & Chem 7: 12/22/21 07:40 12/22/21 07:40 Labs: Laboratory Results - last 24 hr 12/22/21 12/22/21 07:40 07:40 MCV 90.0 MCH 30.1 MCHC 33.4 RDW 13.2 Plt Count 332 MPV 10.8 Absolute Nucleated RBC 0.000 Nucleated RBC % (auto) 0.0 Anion Gap 15 Estim Creat Clear Calc 77.3 Estimated GFR > 60 Random Glucose 91 Calcium 8.8 Procedures Date of Service Date of Service: 12/23/21 Progress Note: A&P Assessment and plan (1) Small bowel obstruction: Status: Acute Assessment and Plan: symptoms seemed resolve looks well abdomen soft, nondistended, nontender diet as tolerated likely DC home later on today Time Spent With Patient Time: Total time spent is greater than 50% in coordination of care (as documented) at patient's floor/unit and/or counseling patient: Quality Stroke Does the patient have a stroke diagnosis?: No VTE Prior VTE?: No VTE Risk Level:: Medical - moderate - high VTE Device Contraindication: N/A - Device Ordered VTE Drug Contraindication: N/A - Med Ordered
[2021-12-23] MEDS: 0.9 % Sodium Chloride Flush 3 ML SYRINGE IVFLUSH (08:21)
[2021-12-23 08:26] VITALS: BP 130/68; PULSE 85; RESP 18; TEMP 36.7; O2SAT 98
--- NOTE | 2021-12-23 09:44 | PM.DS ---
DS: Providers Provider Date of Service: 12/23/21 Date of admission: 12/21/21 09:05 Primary care physician: Debbi Marquez MD Attending physician on admission: Corey Escobar Consults: 12/21/21 08:39 Consult to General Surgery Routine Consulting Provider: Corey Escobar Reason for consultation: SBO Has provider been notified: Yes 12/21/21 09:08 Consult to Hospitalist Routine Consulting Provider: Hospitalist Reason For Exam: hypertension Attending physician on discharge: Corey Escobar DS: Diagnosis Discharge Diagnosis (1) Small bowel obstruction: Status: Acute DS: Summary Hospital Course Hospital Course: BRIEF HPI: Leandra Galvez is a 71 year old female with PMH including IBS, dyslipidemia who presented to the ED this morning with complaints of severe abdominal pain and vomiting. She reports that her pain started yesterday late morning. She thought it was an IBS flare at first. However the pain progresses and became severe which is unsual for her. The pain was located in her central/left abdomen and was sharp. She became significantly bloated and had multiple episodes of vomiting. Her last bowel movement was yesterday and was normal. She does not think she has passed flatus since yesterday as well. The patient has had multiple abdominal surgeries including hysterectomy, appendectomy, cholecystectomy and lap band which is still present and inflated. Due to the severity of the pain and vomiting, she sought care in the ED. Work up included CT scan which demonstrated several dilated fluid-filled small bowel loops in the left abdomen leading to a somewhat fecalized segment in the central abdomen with distal loops are collapsed. Her labs were WNL including WBC count and lactic acid. NGT was inserted in the ED. HOSPITAL COURSE: The patient was admitted to the surgical service for further management of the SBO. Supportive measures were continued for treatment including NGT decompression, IVF and IV analgesics and antiemetics as needed. A hospitalist consult was obtained for management of her medical comorbidities. She had an uncomplicated hospital course. She had return of GI function the following day and felt improved symptomatically. She remained well appearing with a benign abd exam. The NGT was removed and started on clear liquids. She was tolerating this and the following day she was advanced to a solid diet. Upon reassessment later that day, she was tolerating the solid diet without any abdominal pain, nausea or vomiting. She continued to have GI function. She felt ready for discharge. She was discharged to home on 12/23/21 in stable condition. Status at Discharge Functional status at discharge: independent ambulation Overall status at discharge: patient is back to baseline Time Spent with Patient Time attestation: Total time spent providing and/or coordinating discharge services: Discharge coordination time: Greater than 30 minutes Quality: Safe Use of Opioids Does Pt have an Active Cancer Diagnosis on the Problem List?: No Quality: Stroke Does the patient have a stroke diagnosis?: No Physical Exam Vital Signs: Vital Signs: Last Vital Signs Temp 98.1 F 12/23/21 08:26 Pulse 85 12/23/21 08:26 Resp 18 12/23/21 08:26 BP 130/68 12/23/21 08:26 Pulse Ox 98 12/23/21 08:26 O2 Del Method 12/23/21 08:26 BMI result Body Mass Index 31.1 Const: General: comfortable, no acute distress and alert Orientation/consciousness: patient oriented x3 GI: Inspection: No distended Palpation (GI): Soft to palpation, nontender, no guarding and not rigid Skin: General skin exam: no rashes or lesions noted Neuro: General: patient oriented x3 Discharge Plan Discharge Anticipated Discharge Date/Time: 12/23/21 12:16 Patient Disposition: Home, Self-Care Discharge Diagnosis: SBO Referrals: Physician,Unknown J [Physician] - 1 Week Discharge Medications: Continued hydrochlorothiazide 12.5 mg tablet 12.5 mg PO DAILY Qty: 90 4RF trazodone 100 mg tablet 100 mg PO BEDTIME Qty: 90 4RF atorvastatin 20 mg tablet 20 mg PO DAILY Qty: 90 4RF bisacodyl [Dulcolax (bisacodyl)] 5 mg Tablet,Delayed Release (Dr/Ec) 5 mg PO DAILY estradiol [Estrace] 2 mg tablet 2 mg PO DAILY docusate sodium [Colace] 100 mg capsule 100 mg PO DAILY cholecalciferol (vitamin D3) 25 mcg (1,000 unit) capsule 25 mcg PO DAILY magnesium 250 mg tablet 250 mg PO DAILY hydrocodone-acetaminophen 5-325 mg tablet 1 tab PO BID PRN (Reason: pain) 30 Days Qty: 60 0RF Discharge Orders: Discharge Order (Routine); Ordered 12/23/21 Ordered By: Corey Escobar Diet: Advance to usual diet Activity on Discharge: As tolerated Stand Alone Forms: Patient Portal Discharge page Activity Restrictions/Additional Instructions: call office for ffup as needed [phone] Care Plan Goals: Return to baseline health and gradual return to activity. Health Concerns: SBO Plan of Treatment: discharge to home f/u as needed Assessment: improved Discharge Date/Time: 12/23/21 15:56
--- NOTE | 2021-12-23 10:08 | P.CDIC_ITS ---
CDI Concurrent Query Documentation Clarification: PHYSICIAN'S DOCUMENTATION REQUEST Date of Query: 12/23/21 1008 Patient Name: Leandra Galvez Admit Date: 12/21/21 Dear Doctor, A review of the medical record indicates additional documentation may be needed. Please review below and update the documentation accordingly. Clinical Indicators: The following diagnoses or signs and symptoms were noted in the patient record: Risk Factors/Clinical Indicators/Treatments admit with SBO likely caused by adhesions NGT inserted Based on the above, could you clarify in the Progress Notes the appropriate diagnosis, if significant, that supports the above abnormalities and additional evaluation, monitoring, and/or treatment rendered: * Partial SBO * Complete SBO * Other (please specify) * Unable to determine Use of terms such as suspected, likely, concern for, or probable (associated with a specific diagnosis that is being evaluated, monitored, or treated as if it exists) are acceptable and can be coded in the inpatient setting, when documented at the time of discharge. Thank you, Shaista Sims RN Extension: [phone] Please use your independent medical judgment in providing your response. THIS QUERY IS PART OF THE PERMANENT MEDICAL RECORD Provider Response: Other Other Diagnosis: partial small bowel osbtructions likely from adhesions
--- NOTE | 2021-12-23 14:37 | PM.EVENT ---
Event Note Date of Service: 12/23/21 Event Note: seen on afternoon rounds tolerated lunch denies abdl pain abd soft not distended not tender looks well passing flatus ok to dc home she understands symptoms may recur - she says she is familiar now and will go back to ED if this happens again
--- NOTE | 2021-12-23 15:14 | MHC.CM.PN ---
PT MEDICALLY CLEARED FOR D/C HOME SELF-CARE, PT'S SON EDWARD FOR [facility].
== END 2021-12-23 15:56 | disposition home or self-care (01) | DRG 390 ==
LOC: HO.ED 08:39 → HO.EDOVER 09:14
PROVIDERS: Internal Medicine; Admitting Provider Surgery; Emergency Provider Emergency Medicine; PCP Internal Medicine; Responsible Provider Student in an Organized Health Care Education/Training Program; Visit Provider Surgery
DX: K56.51 Intestinal adhesions [bands], with partial obstruction (principal); E78.5 Hyperlipidemia, unspecified; I10 Essential (primary) hypertension; Z20.822 Contact with and (suspected) exposure to COVID-19; Z98.84 Bariatric surgery status; Z88.5 Allergy status to narcotic agent; Z88.6 Allergy status to analgesic agent; Z79.899 Other long term (current) drug therapy
CPT/HCPCS: 36415; 71045; 74176; 80048; 80053; 80076; 81003; 83605; 83690; 85025; 85027; 87635; 99285; J2270; J2405

== ENCOUNTER 2021-12-27 06:00 | Outpatient (REF) | payer MEDICARE, OTHER, SELFPAY | END 2021-12-27 06:01 | disposition home or self-care (01) | LOC: CF 06:00 | PROVIDERS: Visit Provider Anesthesiology | DX: G89.4 Chronic pain syndrome (principal) | CPT/HCPCS: J3300 ==

== ENCOUNTER → 2021-12-28 09:33 | Outpatient (BNVA) | payer MEDICARE, OTHER, SELFPAY | PROVIDERS: PCP Internal Medicine; Visit Provider Anesthesiology | DX: Z51.81 Encounter for therapeutic drug level monitoring (principal); F11.20 Opioid dependence, uncomplicated | CPT/HCPCS: 99211; J3300 ==

== ENCOUNTER 2022-01-10 06:07 | Outpatient (REF) | payer MEDICARE, OTHER, SELFPAY ==
--- NOTE | ~2022-01-10 | FL_ITS ---
EXAMINATION: XR FLUOROSCOPY WITH IMAGES CLINICAL INFORMATION: Chronic pain syndrome. COMPARISON: 08/19/2021 and 04/12/2021. TECHNIQUE: Fluoroscopy performed by Dr. Wilfredo Stratton. Fluoroscopy time: 0.1 minutes. Cumulative Dose: 8.02 mGy. DAP: 2.18 Gy-cm2. Images: 2. FINDINGS: Two intraoperative fluoroscopy images demonstrate on AP view a needle overlying the coccyx and on lateral view contrast opacifying the posterior epidural space as well as some contrast appearing to be overlying the L5 neuroforamina on the right. FL/FL guidance in treatment room IMPRESSION: Fluoroscopy for pain management.
== END 2022-01-10 06:08 | disposition home or self-care (01) ==
LOC: CF 06:07
PROVIDERS: Visit Provider Anesthesiology
DX: M70.62 Trochanteric bursitis, left hip (principal); M51.36 Other intervertebral disc degeneration, lumbar region; M96.1 Postlaminectomy syndrome, not elsewhere classified; G89.4 Chronic pain syndrome
CPT/HCPCS: 62323; J3300

== ENCOUNTER → 2022-01-26 08:11 | Outpatient (BNVA) | payer MEDICARE, OTHER, SELFPAY | PROVIDERS: PCP Internal Medicine; Visit Provider Anesthesiology | DX: Z51.81 Encounter for therapeutic drug level monitoring (principal); F11.20 Opioid dependence, uncomplicated; M47.816 Spondylosis without myelopathy or radiculopathy, lumbar region; M17.0 Bilateral primary osteoarthritis of knee; G89.4 Chronic pain syndrome; M51.36 Other intervertebral disc degeneration, lumbar region; M70.62 Trochanteric bursitis, left hip | CPT/HCPCS: 99212 ==

== ENCOUNTER 2022-02-11 07:50 | Outpatient (REF) | payer MEDICARE, OTHER, SELFPAY ==
--- NOTE | ~2022-02-11 | MM_ITS ---
EXAMINATION: MM SCREENING DIGITAL BREAST TOMOSYNTHESIS, BILATERAL CLINICAL INFORMATION: Screening. Asymptomatic. History reduction mammoplasty, 2014. The lifetime risk of breast cancer based on the Tyrer-Cuzick Model is 4%. COMPARISON: Mammography: 02/01/2021, 01/12/2020, 08/27/2018 TECHNIQUE: Digital breast tomosynthesis is performed in both the craniocaudal and mediolateral oblique views along with computer-aided detection (CAD). Synthesized 2D images are generated from the tomosynthesis. FINDINGS: There are scattered areas of fibroglandular density (ACR BI-RADS breast composition Category b). There are postsurgical changes with stable scarring and scattered oil cysts and benign dystrophic calcifications consistent with the remote prior reduction mammoplasty. Neither breast shows significant mass or interval architectural abnormality or abnormal calcifications or developing density. The axilla are unremarkable. No significant changes. MM/MM tomosynthesis screening BI IMPRESSION: No mammographic evidence of malignancy. ASSESSMENT: BI-RADS 2: Benign RECOMMENDATION: Routine annual mammography screening. This patient's information was entered into a reminder system with a target due date for their next mammogram.
== END 2022-02-11 07:51 | disposition home or self-care (01) ==
LOC: HO.MAMMO 07:50
PROVIDERS: PCP Internal Medicine; Visit Provider Internal Medicine
DX: Z12.31 Encounter for screening mammogram for malignant neoplasm of breast (principal)
CPT/HCPCS: 77063; 77067

== ENCOUNTER → 2022-03-03 08:48 | Outpatient (BNVA) | payer MEDICARE, OTHER, SELFPAY | PROVIDERS: PCP Internal Medicine; Visit Provider Anesthesiology | DX: Z51.81 Encounter for therapeutic drug level monitoring (principal); F11.20 Opioid dependence, uncomplicated | CPT/HCPCS: 99211 ==

== ENCOUNTER 2022-03-04 13:04 | Outpatient (REF) | payer MEDICARE, OTHER, SELFPAY ==
--- NOTE | ~2022-03-04 | XR_ITS ---
EXAMINATION: XR CHEST CLINICAL INFORMATION: Cough COMPARISON: Chest x-ray December 21, 2021 TECHNIQUE: 2 views of the chest were obtained. FINDINGS: Cardiac silhouette is normal in size. The lungs are adequately aerated. There is no lobar consolidation. No pleural effusion or pneumothorax. Mild degenerative changes of the spine. Partially visualized gastric band. XR/XR chest 2V IMPRESSION: No acute pulmonary pathology.
[2022-03-04 14:59] LABS: Influenza A PCR NEGATIVE (Negative); Influenza B PCR NEGATIVE (Negative); Resp Syncy Virus RNA Qual PCR NEGATIVE (Negative); SARS COV2 PCR INHOUSE NEGATIVE (Negative)
== END 2022-03-04 13:05 | disposition home or self-care (01) ==
LOC: HO.HMGCX 13:04
PROVIDERS: PCP Internal Medicine; Visit Provider Physician Assistant Medical
DX: R05.9 Cough, unspecified (principal); Z20.822 Contact with and (suspected) exposure to COVID-19
CPT/HCPCS: 0241U; 71046

== ENCOUNTER → 2022-03-29 14:31 | Outpatient (BNVA) | payer MEDICARE, OTHER, SELFPAY | PROVIDERS: PCP Internal Medicine; Visit Provider Anesthesiology | DX: M47.816 Spondylosis without myelopathy or radiculopathy, lumbar region (principal); M17.0 Bilateral primary osteoarthritis of knee | CPT/HCPCS: 99212 ==

== ENCOUNTER → 2022-04-24 08:16 | Outpatient (BNVA) | payer MEDICARE, OTHER, SELFPAY | PROVIDERS: PCP Internal Medicine; Visit Provider Anesthesiology | DX: G89.4 Chronic pain syndrome (principal); M47.816 Spondylosis without myelopathy or radiculopathy, lumbar region; M17.0 Bilateral primary osteoarthritis of knee; M51.36 Other intervertebral disc degeneration, lumbar region; M70.62 Trochanteric bursitis, left hip; Z79.891 Long term (current) use of opiate analgesic | CPT/HCPCS: 99212 ==

== ENCOUNTER → 2022-05-10 15:28 | Outpatient (BNVA) | payer MEDICARE, OTHER, SELFPAY | PROVIDERS: PCP Internal Medicine; Visit Provider Anesthesiology | DX: Z79.891 Long term (current) use of opiate analgesic (principal) | CPT/HCPCS: 99211 ==

== ENCOUNTER 2022-05-23 06:28 | Outpatient (REF) | payer MEDICARE, OTHER, SELFPAY ==
--- NOTE | ~2022-05-23 | FL_ITS ---
EXAMINATION: XR FLUOROSCOPY WITH IMAGES CLINICAL INFORMATION: Postlaminectomy syndrome. COMPARISON: None. TECHNIQUE: Fluoroscopy Supervised By: BENEDICT Gonzalez Fluoroscopy Time: 0.2 minutes. Cumulative Dose: 4.72 mGy. DAP: 1.28 Gy-cm2. Images: 2. FINDINGS: There are 2 digital images revealing needle positioned caudally posterior to S3 vertebra in the posterior epidural space. There is contrast seen in the posterior epidural space at S1 vertebra. FL/FL guidance in treatment room IMPRESSION: Fluoroscopy guidance was provided to referrer for pain management.
== END 2022-05-23 06:29 | disposition home or self-care (01) ==
LOC: CF 06:28
PROVIDERS: Visit Provider Anesthesiology
DX: M96.1 Postlaminectomy syndrome, not elsewhere classified (principal); M70.62 Trochanteric bursitis, left hip; M51.36 Other intervertebral disc degeneration, lumbar region
CPT/HCPCS: 62323; J3301; Q9965

== ENCOUNTER → 2022-06-12 09:55 | Outpatient (BNVA) | payer MEDICARE, OTHER, SELFPAY | PROVIDERS: PCP Internal Medicine; Visit Provider Anesthesiology | DX: M47.816 Spondylosis without myelopathy or radiculopathy, lumbar region (principal); M17.0 Bilateral primary osteoarthritis of knee; M51.36 Other intervertebral disc degeneration, lumbar region; M70.62 Trochanteric bursitis, left hip; G89.4 Chronic pain syndrome | CPT/HCPCS: 99212 ==

== ENCOUNTER → 2022-06-26 09:16 | Outpatient (BNVA) | payer MEDICARE, OTHER, SELFPAY | PROVIDERS: PCP Internal Medicine; Visit Provider Anesthesiology | DX: Z79.891 Long term (current) use of opiate analgesic (principal) | CPT/HCPCS: 99211 ==

== ENCOUNTER → 2022-07-26 08:39 | Outpatient (BNVA) | payer MEDICARE, OTHER, SELFPAY | PROVIDERS: PCP Internal Medicine; Visit Provider Anesthesiology | DX: Z51.81 Encounter for therapeutic drug level monitoring (principal); F11.20 Opioid dependence, uncomplicated; M47.816 Spondylosis without myelopathy or radiculopathy, lumbar region; M17.0 Bilateral primary osteoarthritis of knee; M51.36 Other intervertebral disc degeneration, lumbar region; M70.62 Trochanteric bursitis, left hip; G89.4 Chronic pain syndrome | CPT/HCPCS: 99212 ==

== ENCOUNTER → 2022-08-16 08:37 | Outpatient (BNVA) | payer MEDICARE, OTHER, SELFPAY | PROVIDERS: PCP Internal Medicine; Visit Provider Anesthesiology | DX: Z79.891 Long term (current) use of opiate analgesic (principal) | CPT/HCPCS: 99211 ==

== ENCOUNTER → 2022-09-13 08:11 | Outpatient (BNVA) | payer MEDICARE, OTHER, SELFPAY | PROVIDERS: PCP Internal Medicine; Visit Provider Registered Nurse Emergency | DX: M17.0 Bilateral primary osteoarthritis of knee (principal); G89.4 Chronic pain syndrome; M51.36 Other intervertebral disc degeneration, lumbar region; M85.89 Other specified disorders of bone density and structure, multiple sites; K58.0 Irritable bowel syndrome with diarrhea; Z79.891 Long term (current) use of opiate analgesic | CPT/HCPCS: 99212 ==

== ENCOUNTER 2022-10-11 08:15 | Outpatient (AMB) | payer MEDICARE, OTHER, SELFPAY ==
--- NOTE | 2022-10-11 08:18 | MHC.OFFVIS ---
Intake Vital Signs 10/11/22 08:27 Height 5 ft 2 in Weight 150 lb BMI 27.4 BP 143/64 H Blood Pressure Location Lt brachial Position Sitting Respiration 16 Pulse 75 Pulse Source Pulse Oximeter Pulse Oximetry (%) 99 Oxygen Delivery Method Room Air Intake Visit Reasons: Pill count Allergies buprenorphine [Belbuca] Allergy (Unknown, Verified 10/11/22 08:18) stomach upset NSAIDS (Non-Steroidal Anti-Inflamma Allergy (Unknown, Verified 10/11/22 08:18) Stomach Upset HPI HPI Comments History of Present Illness Details Leandra presents back to the office today for follow up chronic pain and chronic opioid therapy management. She is prescribed Oxycodone 5mg take 1 tablet daily. Patient arrived today with the expectation of having 16 pills, she presented 19 pills which were counted in the presence of two staff members and returned to the patient in the original prescription bottle. This demonstrates responsible attitude toward patient's opioid medications. Pain is reported today as 4/10 and last dose of pain medication was taken at 2pm yesterday. Pain is well managed on current opioid regimen. Patient denies any recent changes or exacerbations of chronic back pain and states she is able to engage in activities of daily living with minimal interruption due to chronic pain. Patient denies side effects including somnolence, constipation, itching, dyspnea, rash, dizziness or weakness. She spoke with pharmacy and was told that Vicodin remains on backorder nationwide, she would like to continue with Oxycodone at this time. Prior: Leandra is a pleasant 71 year old female who presents to the office for follow up chronic pain and chronic opioid therapy management. Patient is prescribed oxycodone 5mg tablets. Patient arrived today with the expectation of having 13 pills, she presented 16 pills which were counted in the presence of 2 staff and return to the patient in the original prescription bottle. This demonstrates responsible attitude toward patient's opioid medications. Pain is reported today as 4/10 and last dose of pain medication was taken 2pm yesterday. Pain is well managed on current opioid regimen. She does state that she feels vicodin worked better for her pain and would like to switch back if it is now available. She was switched recently from vicodin to oxycodone due to nationwide shortage of vicodin. Patient denies any recent changes or exacerbations of chronic back pain and states she is able to engage in activities of daily living with minimal interruption due to chronic pain. She has been able to work out in her garden which she enjoys. Patient had fifth SUSSY [id number], reports still receiving good effect and does not wish to schedule repeat at this time. Prior: She has PHQ score is equal to 1, Her opioid addiction risk score is equal to 2 Total score is equal to 3 she is low risk for opioid addiction. [facility] Medical History Bilateral primary osteoarthritis of knee Chronic pain syndrome Disc degeneration, lumbar Dyslipidemia Essential hypertension Irritable bowel syndrome Osteopenia of multiple sites Prolapse of anterior vaginal 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, lumbar region Surgical History H/O abdominoplasty History of carpal tunnel surgery History of cholecystectomy History of hysterectomy History of laparoscopic appendectomy History of lumbar laminectomy History of reduction mammoplasty History of tonsillectomy Hx of bariatric surgery Family History Mother Diabetes mellitus Essential hypertension Cardiovascular disease Social History Alcohol intake: never Patient Tobacco Use Status: Former Tobacco user Advance Directives Date on File: 12/22/21 service: No Current occupational status: retired Review of Systems Const All systems reviewed & are unremarkable except as noted in HPI and below Physical Exam Vital Signs: Last Vital Signs Pulse 75 10/11/22 08:27 Resp 16 10/11/22 08:27 BP 143/64 H 10/11/22 08:27 Pulse Ox 99 10/11/22 08:27 Oxygen Delivery Method Room Air 10/11/22 08:27 BMI result Body Mass Index 27.4 General: awake, alert, oriented. Answers questions appropriately. Fully engaged in examination. Skin: warm, dry, intact without visible rashes or lesions. HEENT: Normocephalic. Conjuntivae clear without exudate. Sclera non-icteric. Hearing intact. Cardiac: External chest normal in appearance. Respiratory: No signs of trauma. No signs of respiratory distress. No cough, audible wheezing or stridor. Abdomen: without gross distension. MS: No obvious swelling or deformities. Able to transition from sit to stand unassisted. Ambulates with bilaterally normal heel strike and toe off Neurological: Oriented to person, place, time and situation. Thought process intact. No gait abnormalities appreciated. Psychiatric: Appropriate mood and affect. Good judgment and insight. Assessment & Plan Assessment & Plan (1) Spondylosis without myelopathy or radiculopathy, lumbar region: Code(s): M47.816 - Spondylosis without myelopathy or radiculopathy, lumbar region (2) Bilateral primary osteoarthritis of knee: Code(s): M17.0 - Bilateral primary osteoarthritis of knee (3) Chronic pain syndrome: Code(s): G89.4 - Chronic pain syndrome (4) Disc degeneration, lumbar: Code(s): M51.36 - Other intervertebral disc degeneration, lumbar region (5) Trochanteric bursitis, left hip: Code(s): M70.62 - Trochanteric bursitis, left hip Plan Masspat was reviewed and without concerns. No obvious signs of diversion, abuse or misuse of the opioid medications. Will send in prescription for oxycodone 5mg po daily with an advanced date of 10/27/2022. Continue with caudal SUSSY every 3 months as needed, patient will inform us when she feels she is ready to repeat. Patient to follow-up in the office in 1 month, sooner if needed. All questions and concerns have been answered and patient agrees with the plan. Medications: Refilled oxycodone Partial Fill upon patient request. Patient is recommended to take a half pill of oxycodone once or twice a day p.r.n. pain. 5 mg PO DAILY 30 days PRN 30 tabs 0RF pain Coding Level of Care Code Est Pt Level 3 (99960) Diagnoses Spondylosis without myelopathy or radiculopathy, lumbar region M47.816 Bilateral primary osteoarthritis of knee M17.0 Chronic pain syndrome G89.4 Disc degeneration, lumbar M51.36 Trochanteric bursitis, left hip M70.62
[2022-10-11 08:27] VITALS: BP 143/64; PULSE 75; RESP 16; O2SAT 99; BMI 27.4
== END 2022-10-11 08:31 | disposition home or self-care (01) ==
PROVIDERS: PCP Internal Medicine; Visit Provider Registered Nurse Emergency
DX: M47.816 Spondylosis without myelopathy or radiculopathy, lumbar region (principal); M17.0 Bilateral primary osteoarthritis of knee; G89.4 Chronic pain syndrome; M51.36 Other intervertebral disc degeneration, lumbar region; M70.62 Trochanteric bursitis, left hip
CPT/HCPCS: 99213

== ENCOUNTER → 2022-10-11 08:15 | Outpatient (BNVA) | payer MEDICARE, OTHER, SELFPAY | PROVIDERS: PCP Internal Medicine; Visit Provider Registered Nurse Emergency | DX: Z51.81 Encounter for therapeutic drug level monitoring (principal); F11.20 Opioid dependence, uncomplicated; M47.816 Spondylosis without myelopathy or radiculopathy, lumbar region; M17.0 Bilateral primary osteoarthritis of knee; M51.36 Other intervertebral disc degeneration, lumbar region; M70.62 Trochanteric bursitis, left hip; G89.4 Chronic pain syndrome | CPT/HCPCS: 99212 ==

== ENCOUNTER 2022-10-13 08:07 | Outpatient (AMB) | payer MEDICARE, OTHER, SELFPAY ==
--- NOTE | 2022-10-13 08:13 | AM.OFFVISMDC ---
Intake Vital Signs 10/13/22 08:18 Height 5 ft 2 in Weight 187 lb BMI 34.2 BP 124/70 Blood Pressure Location Rt brachial Position Sitting Pulse 75 Pulse Source Pulse Oximeter Pulse Oximetry (%) 97 Oxygen Delivery Method Room Air Intake Visit Reasons: SAWV G0439 Intake Note: Pt is here today for her SAWV Allergies buprenorphine [Belbuca] Allergy (Unknown, Verified 10/13/22 08:38) stomach upset NSAIDS (Non-Steroidal Anti-Inflamma Allergy (Unknown, Verified 10/13/22 08:38) Stomach Upset Medication List - Last Reconciled 10/13/22 by Debbi Marquez MD atorvastatin 20 mg PO DAILY cholecalciferol (vitamin D3) 25 mcg PO DAILY docusate sodium (Colace) 100 mg PO DAILY estradiol (Estrace) 2 mg PO DAILY hydrochlorothiazide 12.5 mg PO DAILY magnesium 250 mg PO DAILY oxycodone 5 mg PO DAILY PRN 30 days trazodone 100 mg PO BEDTIME HPI SAWV G0439 HPI Details SWV ? 71 year old lady presents for her Subsequent? Annual Wellness Visit.? She still sees Dr. Palomino, currently on estradiol for her bone menopausal symptoms, which has been helping. She currently is being followed by Dr. Stratton for chronic pain syndrome/arthritis in both knees, postlaminectomy syndrome, and spondylosis in lumbar region, currently on oxycodone. She has IBS currently takes hyoscyamine sulfate as needed. She was recently admitted for small-bowel obstruction December 2021, now resolved. She has hypertension and dyslipidemia currently stable and controlled. She is up-to-date with her screening mammogram, done 02/11/2022, last bone density scan done 01/12/2020 showed normal bone density. She had a screening colonoscopy done by Dr. Wilson 06/29/2014 which only showed presence of sigmoid diverticulosis, due for a repeat in 2024. She is up-to-date with all her vaccinations including her COVID vaccine/Tdap/Shingrix and/pneumonia vaccination and gets yearly flu shots. She had a fasting lipid panel and fasting blood sugar check in 10/10/2021 which showed normal .results. ? Medical / Social History Reviewed? Past Medical History ?Yes . ? [place] of Care / Care Team list updated ?Yes . ? Surgical/Hospitalization History ?Yes . ? Current Medications (including OTC and supplements) ?Yes . ? Family History ?Yes . ? Tobacco Control form ?Yes . ? AUDIT-C (Alcohol use) form ?Yes . ? Illicit drug use in Social History ?Yes . ? Current diagnosis of depression? ?No ? Appropriate PHQ2/PHQ9 completed ?Yes . ? Data entered by ?Metallurgical Analyst and reviewed by provider ? Fall Risk ? Fall History? Have you had any falls with injury in the past year? ?No . ? Have you had two or more falls in the past year? ?No . ? Fall Risk Assessment: ?No falls in the past year . ? HRA filled out by the patient, reviewed by Provider and scanned. ?SWV ? Balance? Romberg ?pass . ? Tandem walk ?Yes . ? Walk and Turn ?Yes . ? Rise from sit to stand ?Yes . ?Vision? Corrective lens ?Yes ? Vision screen ? Up-to-date, sees Dr. Barry ?Hearing? Whisper test ?pass . ?Written Plan?Completed. See Patient Documents.? [facility] Medical History (Updated 10/13/22 @ 09:13 by Debbi Marquez MD) Bilateral primary osteoarthritis of knee Chronic pain syndrome Disc degeneration, lumbar Dyslipidemia Essential hypertension Irritable bowel syndrome Osteopenia of multiple sites Prolapse of anterior vaginal 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, lumbar region Surgical History H/O abdominoplasty History of carpal tunnel surgery History of cholecystectomy History of hysterectomy History of laparoscopic appendectomy History of lumbar laminectomy History of reduction mammoplasty History of tonsillectomy Hx of bariatric surgery Family History Mother Diabetes mellitus Essential hypertension Cardiovascular disease Social History Alcohol intake: never Patient Tobacco Use Status: Former Tobacco user Advance Directives Date on File: 12/22/21 service: No Current occupational status: retired Female Reproductive History Menstrual Date of Mammogram: 02/11/22 Date of last Bone Density Screenin01/12/20 Other: Currently sees Dr. Palomino for her OBGYN appointment Questionnaire Medicare Wellness Checkup What [age] What gender do you identify with?: female During the past 4 weeks, how much have you been bothered by emotional problems such as feeling anxious, depressed, irritable, sad or downhearted, and blue?: not at all During the past 4 weeks, has your physical & emotional health limited your social activities with family, friends, neighbors, or groups?: not at all During the past 4 weeks, how much bodily pain have you generally had?: moderate pain During the past 4 weeks, was someone available to help you if you needed & wanted help?: yes, as much as I wanted During the past 4 weeks, what was the hardest physical activity you could do for at least 2 minutes?: moderate Can you get to places out of walking distance without help? (For eg., can you travel alone on buses, taxis or drive your car?): Yes Can you go shopping for groceries or clothes without someone's help?: Yes Can you prepare your own meals?: Yes Can you do your housework without help?: Yes Because of any health problems, do you need the help of another person with your personal care needs such as eating, bathing, dressing or getting around the house?: No Can you handle your own money without help?: Yes During the past 4 weeks, how would you rate your health in general?: good During the past 4 weeks how have things been going for you?: pretty well Are you having difficulties driving your car?: no Do you always fasten your seat belt when you are in a car?: yes, usually During past 4 weeks, have you been bothered by the following: never: Falling or dizzy when standing up, Sexual problems?, Trouble eating well?, Teeth or denture problems?, Problems using the telephone? and Tiredness or fatigue? Have you fallen 2 or more times in the past year?: No Are you afraid of falling?: Yes Are you a smoker?: no During the past 4 weeks, how many drinks of wine, beer, or other alcoholic beverages did you have?: no alcohol at all Do you exercise for about 20 minutes 3 or more times a week?: yes, some of the time Have you been given information to help with the following?: no: Hazards in your house that might hurt you? and no: Keeping track of your medications? How often do you have trouble taking medicines the way you have been told to take them?: I always take medicine as prescribed How confident are you that you can control & manage most of your health problems?: very confident What is your race?: White Mini Mental State Exam (MMSE) Orientation What is the (year) (season) (date) (day) (month)?: year (2022), season (Summer), date (10/13/2022), day (Sunday) and month (September) Where are we (state) (county) (town or city) (hospital) (floor)?: state ([place]), county ([place]), town or city ([place]) and hospital/clinic ([facility]) Score Score: 9 Activity of Daily Living Bathing - sponge bath, tub bath or shower: receives no assistance (gets in/out by self, if usual bathing means Dressing - getting clothes from closets & drawers, including inner/outer garments & fasteners.: gets clothes & gets completely dressed without help Toileting - going to the 'toilet room' for urine/bowel elimination & cleaning self/arranging clothes: goes to toilet room, cleans self, arranges clothes without help Transfer: moves in & out of bed and chair without help (may use support object) Continence: controls urination/bowel movements completely by self Feeding: feeds self without help Total Score: 0 Information obtained from: patient Using telephone: independent Traveling: independent Shopping: independent Preparing meals: independent Housework: independent Taking medicine: independent Managing money: independent PHQ-9 Over the last 2 weeks, how often have you been bothered by any of the following problems? 1. Little interest or pleasure in doing things: not at all 2. Feeling down, depressed, or hopeless: not at all 3. Trouble falling or staying asleep, or sleeping too much: not at all 4. Feeling tired or having little energy: not at all 5. Poor appetite or overeating: not at all 6. Feeling bad about yourself - or that you are a failure or have let yourself or your family down: not at all 7. Trouble concentrating on things, such as reading the newspaper or watching television: not at all 8. Moving or speaking so slowly that other people could have noticed. Or the opposite - being so fidgety or restless that you have been moving around a lot more than usual: not at all 9. Thoughts that you would be better off or of hurting yourself in some way: not at all Total score: 0 Depression Screening Interpretation: Positive 49508 - PHQ-9 Billing: Yes Source: Developed by Drs. Rashid Woodward, Carmenza Hdez, Landry Jackson and colleagues, with an educational irlanda from [employer]. Physical Exam Vital Signs: Last Vital Signs Pulse 75 10/13/22 08:18 BP 124/70 10/13/22 08:18 Pulse Ox 97 10/13/22 08:18 Oxygen Delivery Method Room Air 10/13/22 08:18 BMI result Body Mass Index 34.2 Assessment & Plan Assessment & Plan (1) Postlaminectomy syndrome of lumbar region: Code(s): M96.1 - Postlaminectomy syndrome, not elsewhere classified (2) Essential hypertension: Code(s): I10 - Essential (primary) hypertension Plan: Blood pressure at goal of less than 130/80. Continue with current medication. Reinforced importance of following a low sodium diet, getting regular exercise, and lowering stress levels. (3) Dyslipidemia: Code(s): E78.5 - Hyperlipidemia, unspecified Plan: Fasting lipid check last September 2021 was within normal limits, continue atorvastatin, will recheck lipid level (4) Irritable bowel syndrome: Comment: Followed by Dr. Wilson, symptoms controlled with present treatment Code(s): K58.9 - Irritable bowel syndrome without diarrhea Qualifiers: Irritable bowel syndrome type: unspecified Qualified Code(s): K58.9 - Irritable bowel syndrome without diarrhea Plan: Prescription sent for hyoscyamine sulfate 0.125 mg per tablet to take as needed for abdominal cramping/bloating, followed by Dr. Wilson (5) Chronic pain syndrome: Code(s): G89.4 - Chronic pain syndrome Plan: Followed by Dr. Stratton, takes oxycodone as needed (6) Encounter for subsequent annual wellness visit (AWV) in Medicare patient: Code(s): Z00.00 - Encounter for general adult medical examination without abnormal findings Plan: Medical wellness checklist reviewed, discussed with patient and updated. Copy given. (7) Advanced directives, counseling/discussion: Code(s): Z71.89 - Other specified counseling Plan: Initiated the conversation about Advanced Directives. Advanced Directives help patients prepare for current and future decisions about their medical treatment and place of care. Discussed with patient that it is a process where a patients current condition and prognosis are reviewed, their wishes for information regarding their illness are elicited, and likely medical dilemmas are presented and options discussed. Healthcare proxy form already completed and scanned into chart, MOLST form was done today. These forms can be amended as needed, reviewed yearly and make changes as needed Medications: New hyoscyamine sulfate 0.125 mg PO DAILY PRN 30 tabs 1RF dyspepsia Refilled atorvastatin 20 mg PO DAILY 90 tabs 4RF hydrochlorothiazide 12.5 mg PO DAILY 90 tabs 3RF trazodone 100 mg PO BEDTIME 90 tabs 3RF Quality Reporting (2019) Depression/Bipolar (159/160/161/177) PHQ-9: Total score: 0 Coding Level of Care Code Medicare Subsequent (G0439) Diagnoses Postlaminectomy syndrome of lumbar region M96.1 Essential hypertension I10 Dyslipidemia E78.5 Irritable bowel syndrome K58.9 Irritable bowel syndrome type: unspecified Chronic pain syndrome G89.4 Encounter for subsequent annual wellness visit (AWV) in Medicare patient Z00.00 Advanced directives, counseling/discussion Z71.89 CPT Codes Advance Care Planning - Time spent: 16-45 minutes ([id number]) Advance Care Planning Advance Care Planning discussion: Completed/Scanned (MOLST) Date of discussion: 10/13/22 Who was present: Patient Forms completed: Health Care Proxy (Already on 5) and MOLST (Completed today) Time spent: 16-45 minutes Actual minutes spent: 16
[2022-10-13 08:18] VITALS: BP 124/70; PULSE 75; O2SAT 97; BMI 34.2
== END 2022-10-13 11:03 | disposition home or self-care (01) ==
PROVIDERS: Visit Provider Internal Medicine
DX: Z00.00 Encounter for general adult medical examination without abnormal findings (principal); M96.1 Postlaminectomy syndrome, not elsewhere classified; I10 Essential (primary) hypertension; K58.9 Irritable bowel syndrome, unspecified; Z71.89 Other specified counseling; E78.5 Hyperlipidemia, unspecified; G89.4 Chronic pain syndrome
CPT/HCPCS: 99497; G0439

== ENCOUNTER 2022-10-25 22:24 | Inpatient (IN) | payer MEDICARE, OTHER, SELFPAY ==
--- NOTE | ~2022-10-25 | CT_ITS ---
EXAMINATION: CT ABDOMEN AND PELVIS WITH CONTRAST CLINICAL INFORMATION: Diffuse abdominal pain. Lap band. Rule out small bowel obstruction. COMPARISON: 12/21/2021 TECHNIQUE: Multidetector volumetric images were obtained from the superior aspect of the liver through the pubic symphysis following administration 85 mL of Omnipaque 350 intravenous contrast. Sagittal and coronal reformatted images were obtained on the technologist's workstation. Oral contrast: No This CT examination was performed using dose optimization techniques as appropriate, variously including the following: *Automated exposure control *Adjustment of mA and/or kV according to patient size (this includes techniques or standardized protocols for targeted exams where dose is matched to indication/reason for exam; i.e. extremities or head) *Use of iterative reconstruction technique DLP: 695 mGy-cm FINDINGS: LUNG BASES: Minimal bibasilar atelectasis. Coronary artery calcifications. LIVER, GALLBLADDER, AND BILIARY TREE: The liver is normal in size and shape with decreased attenuation. No focal hepatic lesion or biliary ductal dilatation is present. Cholecystectomy. PANCREAS: Unremarkable. SPLEEN: Unremarkable. ADRENAL GLANDS: Unremarkable. KIDNEYS AND URETERS: The kidneys are normal in size, shape, and attenuation. No hydronephrosis, hydroureter, or calculi seen. High attenuation in the renal calyces likely excreted contrast. No perinephric stranding. BLADDER: Unremarkable. GASTROINTESTINAL TRACT: There is a gastric lap band in place. The stomach appears distended beyond the band. There is small bowel dilatation in the left abdomen extending into the pelvis where there is small bowel wall thickening and a transition at this location. This is seen on series 5 image 39. The colon is mostly decompressed. The distal small bowel is decompressed. The appendix appears to be absent. Small volume of pelvic free fluid. ABDOMINAL WALL: No significant hernia is appreciated. LYMPH NODES: Normal. VASCULAR: Normal caliber of the aorta with moderate atherosclerotic calcifications. PELVIC VISCERA: Uterus not seen. No adnexal mass. OSSEOUS STRUCTURES: No acute or suspicious osseous abnormality. Degenerative changes throughout the spine. CT/CT abdomen pelvis w IV con IMPRESSION: 1. Wall thickening of the small bowel in the pelvis may represent enteritis. Proximal to this there is small bowel dilatation suggestive of a partially obstructive process. 2. Gastric lap band in place. No evidence of slippage. The stomach is distended beyond the band. 3. Hepatic steatosis. Fleischner guidelines were followed.
[2022-10-25 22:41] VITALS: BP 142/74; PULSE 88; O2SAT 99
[2022-10-25 22:44] VITALS: BP 157/72; PULSE 79; RESP 18; TEMP 36.4; O2SAT 100; BMI 37.9
[2022-10-25 22:52] VITALS: BP 157/72; PULSE 79; RESP 16; TEMP 36.4; O2SAT 100
--- NOTE | 2022-10-25 22:53 | PC.NURSE ---
Pt ca&ox3, no signs of distress. Pt denies chest pain and sob. Pts son at bedside. Plan of care ongoing.
--- NOTE | 2022-10-25 23:22 | ED_ITS ---
HPI - Abdominal Pain General Chief Complaint: Abdominal Pain Stated Complaint: ABD PAIN Time Seen by Provider: 10/25/22 23:03 Source: patient Mode of arrival: EMS Limitations: no limitations History of Present Illness HPI narrative: 72-year-old female who presents emergency department for evaluation of abdominal pain. The patient states she was working in her yard around 16:00 hours when she had a gradual onset of abdominal pain. The pain got progressively worse and is currently /. She states that she feels very bloated. She states she has had no appetite is only had a small amount of food and fluid to drink since onset of the pain. She had 1 episode of nausea and vomiting. She states the pain is located diffusely throughout her abdomen. The pain feels similar to the pain that she had in 12/21/2021 when she had a small-bowel obstruction treated with NG tube decompression and pain management with symptomatic improvement of her symptoms. Related Data Home Medications Medication Instructions Recorded Confirmed estradiol 2 mg tablet (Estrace) 2 mg PO DAILY 07/12/20 08/16/22 cholecalciferol (vitamin D3) 25 25 mcg PO DAILY 08/19/20 08/16/22 mcg (1,000 unit) capsule docusate sodium 100 mg capsule 100 mg PO DAILY 08/19/20 08/16/22 (Colace) magnesium 250 mg tablet 250 mg PO DAILY 12/15/20 08/16/22 Previous Rx's Medication Instructions Recorded oxycodone 5 mg tablet 5 mg PO DAILY PRN pain 30 days #30 10/11/22 tabs atorvastatin 20 mg tablet 20 mg PO DAILY #90 tabs 10/13/22 hydrochlorothiazide 12.5 mg tablet 12.5 mg PO DAILY #90 tabs 10/13/22 hyoscyamine sulfate 0.125 mg tablet 0.125 mg PO DAILY PRN dyspepsia 10/13/22 #30 tabs trazodone 100 mg tablet 100 mg PO BEDTIME #90 tabs 10/13/22 Allergies Allergy/AdvReac Type Severity Reaction Status Date / Time buprenorphine [Belbuca] Allergy Unknown stomach Verified 10/13/22 08:38 upset NSAIDS (Non-Steroidal Allergy Unknown Stomach Verified 10/13/22 08:38 Anti-Inflamma Upset Review of Systems Review of Systems Yes all other systems are reviewed and are negative [facility] Past Medical History [facility] Narrative: Social history: She denies tobacco, alcohol and drug use. Medical History Bilateral primary osteoarthritis of knee Chronic pain syndrome Disc degeneration, lumbar Dyslipidemia Essential hypertension Irritable bowel syndrome Obesity (BMI 30.0-34.9) Osteopenia of multiple sites Prolapse of anterior vaginal 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, lumbar region Surgical History H/O abdominoplasty History of carpal tunnel surgery History of cholecystectomy History of hysterectomy History of laparoscopic appendectomy History of lumbar laminectomy History of reduction mammoplasty History of tonsillectomy Hx of bariatric surgery Family History Family History Mother Diabetes mellitus Essential hypertension Cardiovascular disease Daughter Wernicke-Korsakoff syndrome (alcoholic) Social History Social History Alcohol intake: never Patient Tobacco Use Status: Former Tobacco user Smoked in Last 30 Days: No Advance Directives: Yes Advance Directives on File: Yes Advance Directives Date on File: 12/22/21 service: No Current occupational status: retired Physical Exam ED Vital Signs: Vital Signs - 24 hr 10/25/22 22:44 10/25/22 22:52 10/26/22 00:30 Temperature 97.6 F 97.6 F Pulse Rate 79 79 88 Respiratory Rate 18 16 13 Blood Pressure 157/72 H 157/72 H 127/64 Pulse Oximetry 100 100 Oxygen Delivery Method Room Air Room Air 10/26/22 00:43 Temperature Pulse Rate 88 Respiratory Rate 13 Blood Pressure 127/64 Pulse Oximetry Oxygen Delivery Method BMI result Body Mass Index 37.9 Medical Decision Making Medical Decision Making [facility] Narrative: 72-year-old female with a history of hypertension, hyperlipidemia, degenerative disc disease, IBS, chronic pain, appendectomy, cholecystectomy, small-bowel obstruction who presents emergency department for evaluation of gradual onset of diffuse abdominal pain which started at 16:00 hours and got progressively worse. Patient had 1 episode of nausea vomiting. She states her last bowel movement was at 16:00 hours and was loose and brown with no blood in it. Patient's pain was 10/10 on presentation. Vital signs revealed an elevated blood pressure 157/72 otherwise were unremarkable. Abdomen is obese, distended, diffusely tender, with hyperactive bowel sounds. The following evaluation was ordered: CBC, BMP, liver panel, lipase, urinalysis, CT scan of the abdomen pelvis with IV contrast. I ordered normal saline x1 L. patient's pain and nausea was treated with Dilaudid 1 mg IV and Zofran 4 mg IV 0101: The patient's laboratory evaluation did reveal an elevated white blood cell count of 412 1400 elevated glucose of [address] scan of the abdomen pelvis with IV contrast was concerning for ? Wall thickening of the small bowel in the pelvis may represent enteritis. Proximal to this there is small bowel dilatation suggestive of a partially obstructive process. The patient's abdominal pain did improve with the above medications. I ordered blood cultures x2 and a lactic acid. Patient will be treated with Zosyn 4.5 g IV. I will contact the on-call surgeon to discuss disposition and further management. 0139: I did discuss patient's presentation with the covering surgeon, Dr. Ruiz and the patient will be admitted to her service for further management. 0240: Patient's lactic acid was elevated at 3.0, this is most likely caused by her bowel obstruction and not by severe sepsis. I did order a 30 cc/kilogram normal saline bolus based on her ideal body weight. Differential Diagnosis Differential Diagnoses: The differential diagnosis associated with the presentation includes Differential diagnosis includes but is not limited to pancreatitis, small-bowel obstruction, ischemic bowel, incarcerated hernia, bowel perforation Admission/Observation Consideration of admission/observation: Escalation of care including admission/observation considered Lab Data MDM Lab Attestation statement: I reviewed the patient's lab results. My independent interpretation patient's laboratory evaluation is as follows: Elevated white blood count 55171. Elevated BUN 19. Elevated glucose 134. Patient's LFTs and lipase were normal. 10/25/22 23:15 10/25/22 23:15 Labs: Lab Results 10/25/22 10/25/22 10/26/22 Range/Units 23:15 23:15 01:21 WBC 12.4 H (4.8-10.8) X10*3/uL RBC 4.13 L (4.20-5.50) X10*6/uL Hgb 12.4 (12.0-16.0) g/dl Hct 37.5 (37.0-47.0) % MCV 90.8 (80.0-98.0) fL MCH 30.0 (27.0-33.0) pg MCHC 33.1 (31.0-35.0) g/dl RDW 13.6 (11.0-16.0) % Plt Count 253 (160-400) X10*3/uL MPV 11.8 (9.4-12.3) fL Immature Gran % (Auto) 0.4 (0.0-0.4) % Neut % (Auto) 73.5 H (45-73) % Lymph % (Auto) 19.0 L (20-40) % Mc[place]osh % (Auto) 5.9 (2-11) % Eos % (Auto) 0.6 (0-4) % Baso % (Auto) 0.6 (0-2) % Lymph # (Auto) 2.4 (1.2-4.9) X10*3/uL [place] # (Auto) 0.7 (0.1-1.2) X10*3/uL Eos # (Auto) 0.1 (0.0-0.4) X10*3/uL Baso # (Auto) 0.1 (0.0-0.2) X10*3/uL Abs Immat Gran (auto) 0.05 H (0.00-0.03) X10*3/uL Absolute Neuts (auto) 9.1 H (2.0-8.3) x10*3/uL Absolute Nucleated RBC 0.000 (0.0-0.012) X10*3/uL Nucleated RBC % (auto) 0.0 (0.0-0.2) /100WBC Smear Tech's Comments VERIFIED Sodium 138 (135-145) mmol/L Potassium 4.0 (3.3-5.1) mmol/L Chloride 103 (96-108) mmol/L Carbon Dioxide 23 (22-29) mmol/L Anion Gap 16 (12-20) BUN 19 H (9-16) mg/dL Creatinine 0.85 (0.5-1.4) mg/dL Estim Creat Clear Calc 65.7 Estimated GFR > 60 Random Glucose 134 H (60-115) mg/dL Lactic Acid (0.5-2.0) mmol/L Calcium 9.9 D (8.4-10.2) mg/dL Total Bilirubin 0.3 (0.0-1.0) mg/dL Direct Bilirubin 0.1 (0.0-0.5) mg/dL AST 25 (5-31) U/L ALT 17 (0-31) U/L Alkaline Phosphatase 54 (39-117) U/L Total Protein 6.8 (6.5-8.0) g/dL Albumin 3.8 (3.5-5.0) g/dL Lipase 65 (8-78) U/L Urine Color Yellow Urine Appearance Cloudy Urine pH 6.0 (5.0-9.0) Ur Specific [place] >= 1.030 H (1.005-1.025) Urine Protein Negative (Neg-Trace) mg/dL Urine Glucose (UA) Negative (Negative) mg/dL Urine Ketones Trace (Negative) mg/dL Urine Blood Negative (Negative) Urine Nitrite Negative (Negative) Ur Leukocyte Esterase Negative (Negative) 10/26/22 Range/Units 01:46 WBC (4.8-10.8) X10*3/uL RBC (4.20-5.50) X10*6/uL Hgb (12.0-16.0) g/dl Hct (37.0-47.0) % MCV (80.0-98.0) fL MCH (27.0-33.0) pg MCHC (31.0-35.0) g/dl RDW (11.0-16.0) % Plt Count (160-400) X10*3/uL MPV (9.4-12.3) fL Immature Gran % (Auto) (0.0-0.4) % Neut % (Auto) (45-73) % Lymph % (Auto) (20-40) % Mcintosh % (Auto) (2-11) % Eos % (Auto) (0-4) % Baso % (Auto) (0-2) % Lymph # (Auto) (1.2-4.9) X10*3/uL [place] # (Auto) (0.1-1.2) X10*3/uL Eos # (Auto) (0.0-0.4) X10*3/uL Baso # (Auto) (0.0-0.2) X10*3/uL Abs Immat Gran (auto) (0.00-0.03) X10*3/uL Absolute Neuts (auto) (2.0-8.3) x10*3/uL Absolute Nucleated RBC (0.0-0.012) X10*3/uL Nucleated RBC % (auto) (0.0-0.2) /100WBC Smear Tech's Comments Sodium (135-145) mmol/L Potassium (3.3-5.1) mmol/L Chloride (96-108) mmol/L Carbon Dioxide (22-29) mmol/L Anion Gap (12-20) BUN (9-16) mg/dL Creatinine (0.5-1.4) mg/dL Estim Creat Clear Calc Estimated GFR Random Glucose (60-115) mg/dL Lactic Acid 3.0 H* (0.5-2.0) mmol/L Calcium (8.4-10.2) mg/dL Total Bilirubin (0.0-1.0) mg/dL Direct Bilirubin (0.0-0.5) mg/dL AST (5-31) U/L ALT (0-31) U/L Alkaline Phosphatase (39-117) U/L Total Protein (6.5-8.0) g/dL Albumin (3.5-5.0) g/dL Lipase (8-78) U/L Urine Color Urine Appearance Urine pH (5.0-9.0) Ur Specific [place] (1.005-1.025) Urine Protein (Neg-Trace) mg/dL Urine Glucose (UA) (Negative) mg/dL Urine Ketones (Negative) mg/dL Urine Blood (Negative) Urine Nitrite (Negative) Ur Leukocyte Esterase (Negative) Radiology Impression Discussion of test interpretation with radiology: I have reviewed the radiologist's reading. Radiologist Impression: CT abdomen pelvis w IV con IMPRESSION: 1. Wall thickening of the small bowel in the pelvis may represent enteritis. Proximal to this there is small bowel dilatation suggestive of a partially obstructive process. 2. Gastric lap band in place. No evidence of slippage. The stomach is distended beyond the band. 3. Hepatic steatosis. Fleischner guidelines were followed. Dictated By:Shady Bowling MD Medications Administered Discontinued Medications Generic Name Dose Route Start Last Admin Trade Name Tracey PRN Reason Stop Dose Admin Hydromorphone HCl 1 mg 10/25/22 23:20 10/25/22 23:54 Hydromorphone Hcl 1 Mg/Ml Syringe IVPUSH 10/25/22 23:21 1 mg ONCE STA Administration Protocol Sodium Chloride 1,000 mls @ 999 mls/hr 10/25/22 23:20 10/25/22 23:55 Ns IV 10/26/22 00:20 999 mls/hr .Q1H1M STA Administration Piperacillin Sod/Tazobactam 100 mls @ 200 mls/hr 10/26/22 00:59 10/26/22 02:00 Sod 4.5 gm/ Sodium Chloride IV 10/26/22 01:28 200 mls/hr ONCE ONE Administration Iohexol 85 ml 10/26/22 00:09 10/26/22 00:10 Iohexol 350 Mg/Ml 100 Ml Infus..Btl IV 10/26/22 00:10 85 ml ONCE ONE Administration Ondansetron HCl 4 mg 10/25/22 23:20 10/25/22 23:54 Ondansetron Hcl 4 Mg/2 Ml Vial IVPUSH 10/25/22 23:21 4 mg ONCE ONE Administration Critical Care Time Critical Care Time Critical Care Time: Yes Total Critical Care Time: 35 Attestation: Critical Care: The patient was critically ill with a high probability of imminent or life threatening deterioration. I spent greater than 30 minutes of discontinuous time evaluating the patient,delivering critical care at the bedside, discussing and evaluating pertinent data with consultants. Critical care time does not include time spent performing separately billable procedures or teaching. Total time spent performing critical care was 35 minutes. Discharge Plan Discharge Clinical Impression: Partial obstruction of small intestine, Enteritis Abdominal pain Qualifiers: Abdominal location: generalized Qualified Code(s): R10.84 - Generalized abdominal pain Patient Disposition: Admitted As Inpatient
--- NOTE | 2022-10-25 23:25 | MHC.EDTECH ---
[id number]
[2022-10-25 23:48] LABS: Alanine Aminotransferase 17 U/L (0-31); Albumin Level 3.8 g/dL (3.5-5.0); Alkaline Phosphatase 54 U/L (39-117); Anion Gap 16 (12-20); Aspartate Amino Transferase 25 U/L (5-31); Bilirubin Direct 0.1 mg/dL (0.0-0.5); Bilirubin Total 0.3 mg/dL (0.0-1.0); Blood Urea Nitrogen 19 mg/dL (9-16); Calcium 9.9 mg/dL (8.4-10.2); Carbon Dioxide 23 mmol/L (22-29); Chloride 103 mmol/L (96-108); Creatinine Clr Calc Pharmacy 65.7; Estimated Glomerular Filt Rate > 60; Glucose Random 134 mg/dL (60-115); Lipase 65 U/L (8-78); Sodium 138 mmol/L (135-145); Total Protein 6.8 g/dL (6.5-8.0)
[2022-10-25 23:54] LABS: Basophils Absolute Auto 0.1 X10*3/uL (0.0-0.2); Basophils Percent Auto 0.6 % (0-2); Eosinophils Percent Auto 0.6 % (0-4); Hemoglobin 12.4 g/dl (12.0-16.0); Imm Gran Abs Auto 0.05 X10*3/uL (0.00-0.03); Imm Gran Pct Auto 0.4 % (0.0-0.4); MANUAL DIFF FLAG SCAN; Neutrophils Absolute Auto 9.1 x10*3/uL (2.0-8.3); PLT CLUMP 1; Red Blood Count 4.13 X10*6/uL (4.20-5.50); Red Cell Distribution Width 13.6 % (11.0-16.0); SCAN SMEAR FLAG 1
[2022-10-25] MEDS: HYDROmorphone HCl 1 MG/ML SYRINGE IVPUSH (23:54)
[2022-10-25] MEDS: ondansetron HCL 4 MG/2 ML VIAL IVPUSH (23:54)
[2022-10-25] MEDS: 0.9 % Sodium Chloride 1,000 ML 999 ML IV (23:55)
[2022-10-25 23:56] LABS: Eosinophils Absolute Auto 0.1 X10*3/uL (0.0-0.4); Hematocrit 37.5 % (37.0-47.0); Lymphocytes Absolute Auto 2.4 X10*3/uL (1.2-4.9); Mean Corpuscular HGB Conc 33.1 g/dl (31.0-35.0); Mean Corpuscular Volume 90.8 fL (80.0-98.0); Mean Platelet Volume 11.8 fL (9.4-12.3); Monocytes Absolute Auto 0.7 X10*3/uL (0.1-1.2); Monocytes Percent Auto 5.9 % (2-11); Neutrophils Percent Auto 73.5 % (45-73)
[2022-10-26] VITALS (8 sets, daily range): BP systolic 113–151; BP diastolic 63–77; PULSE 68–88; RESP 12–20; TEMP 36.5–36.9; O2SAT 95–98; BMI 37.9
[2022-10-26 00:04] LABS: White Blood Count 12.4 X10*3/uL (4.8-10.8)
[2022-10-26 00:05] LABS: Platelet Count 253 X10*3/uL (160-400)
[2022-10-26 00:06] LABS: SLIDE REVIEW VERIFIED
[2022-10-26] MEDS: iohexoL 350 MG/ML 100 ML INFUS..BTL 85 ML IV (00:10)
--- NOTE | 2022-10-26 00:45 | PC.NURSE ---
Pt returned from CT. Pt ca&ox4, no signs of distress. Pt placed on bedside monitor. Pt reports meds helped with pain 03/28 now. Plan of care ongoing.
[2022-10-26 01:28] LABS: Appearance Urine Cloudy; Color Urine Yellow; Glucose Urine UA Negative (Negative); Leukocyte Esterase Urine Negative (Negative); Nitrite Urine Negative (Negative); Specific Gravity - Urine >= 1.030 (1.005-1.025); Urine Blood Negative (Negative); Urine Ketones Trace mg/dL (Negative); Urine Protein Negative (Neg-Trace)
--- NOTE | 2022-10-26 01:32 | PC.NURSE ---
UA collected and sent. plan of care ongoing.
[2022-10-26] MEDS: Piperacillin Sodium/Tazobactam 4.5 GM in 0.9 % Sodium Chloride 100 ML IV (02:00)
--- NOTE | 2022-10-26 02:12 | PC.NURSE ---
Lactic 3.0. Provider made aware. plan of care ongoing.
[2022-10-26] MEDS: Pantoprazole Sodium 40 MG/10 ML VIAL IVPUSH (02:51)
--- NOTE | 2022-10-26 03:08 | PC.NURSE ---
Pt ca&ox3, no signs of distress. Pt medicated per mar. plan of care ongoing.
[2022-10-26 03:52] LABS: Reflex Lactate? Lactic Acid Added
[2022-10-26] MEDS: 0.9 % Sodium Chloride 1,000 ML 125 ML IVCONT ×3 (03:55→20:17)
[2022-10-26] MEDS: HYDROmorphone HCl 1 MG/ML SYRINGE 0.5 MG IVPUSH ×3 (04:47→20:58)
--- NOTE | 2022-10-26 04:58 | PC.NURSE ---
Pt requesting pain meds, reporting 7/10 adbm pain. Pt medicated per mar. No signs of distress. Plan of care ongoing.
[2022-10-26 05:10] LABS: ~Lactic Acid-LAB USE ONLY 2.6 mmol/L (0.5-2.0)
[2022-10-26 05:58] LABS: MANUAL DIFF FLAG NO
[2022-10-26 06:03] LABS: Basophils Percent Auto 0.5 % (0-2); Eosinophils Absolute Auto 0.1 X10*3/uL (0.0-0.4); Eosinophils Percent Auto 0.6 % (0-4); Hematocrit 32.2 % (37.0-47.0); Hemoglobin 10.4 g/dl (12.0-16.0); Imm Gran Abs Auto 0.02 X10*3/uL (0.00-0.03); Imm Gran Pct Auto 0.3 % (0.0-0.4); Lymphocytes Absolute Auto 2.5 X10*3/uL (1.2-4.9); Lymphocytes Percent Auto 31.6 % (20-40); Mean Corpuscular HGB Conc 32.3 g/dl (31.0-35.0); Mean Corpuscular Hemoglobin 29.6 pg (27.0-33.0); Mean Corpuscular Volume 91.7 fL (80.0-98.0); Mean Platelet Volume 10.5 fL (9.4-12.3); Monocytes Absolute Auto 0.6 X10*3/uL (0.1-1.2); Monocytes Percent Auto 7.6 % (2-11); Neutrophils Absolute Auto 4.6 x10*3/uL (2.0-8.3); Neutrophils Percent Auto 59.4 % (45-73); Platelet Count 272 X10*3/uL (160-400); Red Blood Count 3.51 X10*6/uL (4.20-5.50); Red Cell Distribution Width 13.8 % (11.0-16.0); White Blood Count 7.8 X10*3/uL (4.8-10.8)
[2022-10-26 06:16] LABS: Anion Gap 13 (12-20); Blood Urea Nitrogen 15 mg/dL (9-16); Calcium 8.7 mg/dL (8.4-10.2); Carbon Dioxide 23 mmol/L (22-29); Chloride 106 mmol/L (96-108); Creatinine Clr Calc Pharmacy 75.5; Estimated Glomerular Filt Rate > 60; Glucose Fasting 111 mg/dL (60-99); Potassium 3.9 mmol/L (3.3-5.1); Sodium 138 mmol/L (135-145)
[2022-10-26 06:48] LABS: Reflex Lactate? 2 Y
--- NOTE | 2022-10-26 08:58 | PHA.MEDREC ---
Pharmacy Consult ? Medication Reconciliation Pharmacy has completed the medication reconciliation. Patient had a med list. Only change from med list is that patient switched Vicodin for oxycodone 5mg.
[2022-10-26 09:10] LABS: ~Lactic Acid-LAB USE ONLY 2.3 mmol/L (0.5-2.0)
--- NOTE | 2022-10-26 09:16 | PM.HPGS ---
History of Present Illness History of Present Illness Date of Service: 10/26/22 Chief complaint: ABDO PAIN nausea Narrative: Leandra Galvez is a 72 year old female with a history of multiple prior abdominal surgeries as well as having an episode of a partial small-bowel obstruction in the past who now presents here with similar abdominal complaints of abdominal distention, pain, failure of passage of flatus and stool for last few days. Chart was reviewed and patient evaluated. Adding evaluation this morning, patient has had marked improvement of her symptoms. She has passed some flatus. Her abdominal swelling has also decreased. [facility] Past Medical History Medical History Bilateral primary osteoarthritis of knee Chronic pain syndrome Disc degeneration, lumbar Dyslipidemia Essential hypertension Irritable bowel syndrome Obesity (BMI 30.0-34.9) Osteopenia of multiple sites Prolapse of anterior vaginal 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, lumbar region Family History Family History Mother Diabetes mellitus Essential hypertension Cardiovascular disease Daughter Wernicke-Korsakoff syndrome (alcoholic) Surgical History Surgical History H/O abdominoplasty History of carpal tunnel surgery History of cholecystectomy History of hysterectomy History of laparoscopic appendectomy History of lumbar laminectomy History of reduction mammoplasty History of tonsillectomy Hx of bariatric surgery Social History Social History Alcohol intake: never Patient Tobacco Use Status: Former Tobacco user Smoked in Last 30 Days: No Advance Directives: Yes Advance Directives on File: Yes Advance Directives Date on File: 12/22/21 service: No Current occupational status: retired Meds Allergies Allergy/AdvReac Type Severity Reaction Status Date / Time buprenorphine [Belbuca] Allergy Unknown stomach Verified 10/13/22 08:38 upset NSAIDS (Non-Steroidal Allergy Unknown Stomach Verified 10/13/22 08:38 Anti-Inflamma Upset Active Medications: Current Medications Hydromorphone HCl (Hydromorphone Hcl 1 Mg/Ml Syringe) 0.5 mg IVPUSH Q4H PRN; Protocol PRN Reason: Pain, Severe (Pain Scale 7-10) Last Admin: 10/26/22 04:47 Dose: 0.5 mg Sodium Chloride (Ns) 1,000 mls @ 125 mls/hr IVCONT .Q8H [facility] Last Admin: 10/26/22 03:55 Dose: 125 mls/hr Ondansetron HCl (Ondansetron Hcl 4 Mg/2 Ml Vial) 4 mg IVPUSH QID PRN PRN Reason: Nausea and Vomiting Sodium Chloride (0.9 % Sodium Chloride Flush 3 Ml Syringe) 3 ml IVFLUSH QSHIFT [facility] Last Admin: 10/26/22 07:47 Dose: Not Given Home Medications Medication Instructions Recorded Confirmed Last Taken Type estradiol 2 mg tablet (Estrace) 2 mg PO DAILY 07/12/20 10/26/22 10/25/22 History docusate sodium 100 mg capsule 200 mg PO DAILY 08/19/20 10/26/22 10/25/22 History (Colace) magnesium 250 mg tablet 250 mg PO DAILY 12/15/20 10/26/22 10/25/22 History bisacodyl 5 mg tablet,delayed 10 mg PO DAILY 10/26/22 10/26/22 10/25/22 History release (Dulcolax (bisacodyl)) cholecalciferol (vitamin D3) 50 50 mcg PO DAILY 10/26/22 10/26/22 10/25/22 History mcg (2,000 unit) tablet (Vitamin D3) omeprazole magnesium 20 mg 20 mg PO DAILY@0630 PRN Acid Reflux 10/26/22 10/26/22 Unknown History capsule,delayed release Physical Exam Vital Signs: Vital Signs: Last Vital Signs Temp 97.7 F 10/26/22 08:25 Pulse 68 10/26/22 08:25 Resp 14 10/26/22 08:25 BP 134/71 10/26/22 08:25 Pulse Ox 95 10/26/22 06:04 O2 Del Method Room Air 10/26/22 08:25 BMI result Body Mass Index 37.9 Const: Other: Corpulent, pleasant, cooperative female. Patient is able to sit up and move about the bed with no progression of her abdominal symptoms. Chest: Other: Chest breath sounds bilaterally. GI: Other: Corpulent abdomen. Multiple scars. At present, mildly distended but no evidence of any guarding, rebound, or rigidity. Results Results Labs: Short CBC 10/25/22 10/26/22 Range/Units 23:15 05:48 WBC 12.4 H 7.8 (4.8-10.8) X10*3/uL Hgb 12.4 10.4 L (12.0-16.0) g/dl Hct 37.5 32.2 L (37.0-47.0) % Plt Count 253 272 (160-400) X10*3/uL BMP 10/25/22 10/26/22 23:15 05:48 Sodium 138 138 Potassium 4.0 3.9 Chloride 103 106 Carbon Dioxide 23 23 BUN 19 H 15 Creatinine 0.85 0.74 Calcium 9.9 D 8.7 D Liver Function 10/25/22 Range/Units 23:15 Total Bilirubin 0.3 (0.0-1.0) mg/dL Direct Bilirubin 0.1 (0.0-0.5) mg/dL AST 25 (5-31) U/L ALT 17 (0-31) U/L Alkaline Phosphatase 54 (39-117) U/L Albumin 3.8 (3.5-5.0) g/dL Urine 10/26/22 Range/Units 01:21 Urine Color Yellow Urine Appearance Cloudy Urine pH 6.0 (5.0-9.0) Ur Specific [place] >= 1.030 H (1.005-1.025) Urine Protein Negative (Neg-Trace) mg/dL Urine Glucose (UA) Negative (Negative) mg/dL Assessment and Plan (1) Partial obstruction of small intestine: Status: Acute (2) Abdominal pain: Qualifiers: Abdominal location: generalized Qualified Code(s): R10.84 - Generalized abdominal pain Status: Acute Plan Partial small-bowel obstruction which clinically apparently has begun to resolve. Current plan is to continue current therapy. If symptoms continue improved, NG tube can be removed and liquid diet comments. Serial labs and exams. Further interventions and studies will be directed by the patient's clinical course. Time Spent With Patient Time: Total time managing care of this patient today ____ minutes. Quality Stroke Does the patient have a stroke diagnosis?: No VTE Prior VTE?: No VTE Risk Level:: Surgical - low VTE Device Contraindication: N/A - Device Ordered VTE Drug Contraindication: Treatment Not Indicated Procedures Date of Service Date of Service: 10/26/22
--- NOTE | 2022-10-26 09:29 | PC.NURSE ---
suction to R nares NGT continues w/o issue- draining minimal serous yellow fluid. this start of shift so far 150cc @0930. resting. calm. hr 70s, +o2 sat on RA. normal respir. +CSM.
--- NOTE | 2022-10-26 10:04 | PC.NURSE ---
called report to overflow- charge account authorizer aware pt for room 9.
[2022-10-26 12:55] LABS: Appearance Urine Clear; Color Urine Yellow; Glucose Urine UA Negative (Negative); Leukocyte Esterase Urine Negative (Negative); Nitrite Urine Negative (Negative); Urine Blood Negative (Negative); Urine Ketones Negative (Negative); Urine Protein Negative (Neg-Trace)
--- NOTE | 2022-10-26 16:08 | PC.NURSE ---
Report given to S3 ROSAURA Mayo,Transporter notified by [employer]
--- NOTE | 2022-10-26 16:18 | PC.NURSE ---
Patient transported to S# by Transporter,via wc.NG output 400 ml of greenish drainage
[2022-10-27 03:38] VITALS: BP 130/61; PULSE 65; RESP 18; TEMP 36.8; O2SAT 98
[2022-10-27 07:03] VITALS: BP 141/71; PULSE 75; RESP 18; TEMP 36.6; O2SAT 98
[2022-10-27] MEDS: 0.9 % Sodium Chloride 1,000 ML 125 ML IVCONT (09:23)
[2022-10-27] MEDS: hydroCHLOROthiazide 12.5 MG TABLET PO (09:24)
[2022-10-27] MEDS: Atorvastatin Calcium 20 MG TABLET PO (09:24)
--- NOTE | 2022-10-27 09:25 | PM.PNGS ---
Subjective Subjective Date of Service: 10/27/22 Interval history: Feels much better this morning. Denies any abdominal pain or nausea. Passing flatus. Feels like her abdomen is much softer. Has been ambulating. Physical Exam Vital Signs: Vital Signs: Last Vital Signs Temp 98 F 10/27/22 07:03 Pulse 75 10/27/22 07:03 Resp 18 10/27/22 07:03 BP 141/71 H 10/27/22 07:03 Pulse Ox 98 10/27/22 07:03 O2 Del Method Room Air 10/27/22 07:03 BMI result Body Mass Index 37.9 Const: General: comfortable, no acute distress and alert Orientation/consciousness: patient oriented x3 HEENT: Other: NGT in place, scanty bilious output Resp: Effort & Inspection: normal respiratory effort GI: Inspection: No distended Palpation (GI): Soft to palpation, nontender, no guarding and not rigid Percussion: Yes normal to percussion Skin: General skin exam: no rashes or lesions noted Neuro: General: patient oriented x3 and moves all extremities Objective Data Active Medications Atorvastatin Calcium (Atorvastatin Calcium 20 Mg Tablet) 20 mg PO DAILY [facility] [place] Last Admin: 10/27/22 09:24 Dose: 20 mg Documented By: YANI Estradiol (Estradiol 0.5 Mg Tablet) 2 mg PO DAILY [facility] [place] Hydrochlorothiazide (Hydrochlorothiazide 12.5 Mg Tablet) 12.5 mg PO DAILY [facility] [place] [place]; Protocol Last Admin: 10/27/22 09:24 Dose: 12.5 mg Documented By: YANI Hydromorphone HCl (Hydromorphone Hcl 1 Mg/Ml Syringe) 0.5 mg IVPUSH Q4H PRN; Protocol PRN Reason: Pain, Severe (Pain Scale 7-10) Last Admin: 10/26/22 20:58 Dose: 0.5 mg Documented By: CARRI Sodium Chloride (Ns) 1,000 mls @ 125 mls/hr IVCONT .Q8H [facility] [place] Last Admin: 10/27/22 09:23 Dose: 125 mls/hr Documented By: YANI Magnesium Oxide (Magnesium Oxide 400 Mg Tablet) 400 mg PO DAILY [facility] [place] Omeprazole (Omeprazole 20 Mg Capsule.Dr) 20 mg PO DAILY@0630 PRN PRN Reason: Acid Reflux Ondansetron HCl (Ondansetron Hcl 4 Mg/2 Ml Vial) 4 mg IVPUSH QID PRN PRN Reason: Nausea and Vomiting Sodium Chloride (0.9 % Sodium Chloride Flush 3 Ml Syringe) 3 ml IVFLUSH QSHIFT [facility] [place] Last Admin: 10/27/22 08:12 Dose: Not Given Documented By: YANI Non-Admin Reason: IV Running Trazodone HCl (Trazodone Hcl 100 Mg Tablet) 100 mg PO BEDTIME [facility] Labs 10/26/22 05:48 10/26/22 05:48 Labs: Laboratory Results - last 24 hr 10/26/22 12:40 Urine Color Yellow Urine Appearance Clear Urine pH 6.0 Ur Specific [place] 1.020 Urine Protein Negative Urine Glucose (UA) Negative Urine Ketones Negative Urine Blood Negative Urine Nitrite Negative Ur Leukocyte Esterase Negative Microbiology Microbiology Results: Microbiology 10/26/22 01:47 Blood Culture - Preliminary Blood - Venous No growth after 24 hours. 10/26/22 01:43 Blood Culture - Preliminary Blood - Venous No growth after 24 hours. Procedures Date of Service Date of Service: 10/27/22 Progress Note: A&P Assessment and plan (1) Partial obstruction of small intestine: Status: Acute Plan 72 year old female admitted with PSBO. Patient feels much improved without any abdominal pain or tenderness on exam and with evidence of GI function. NGT with low output overnight. NGT therefore removed. Will advance to clear liquids and then further as tolerated. Continue OOB/ambulation. Patient comfortable with plan. Time Spent With Patient Time: Total time managing care of this patient today ____ minutes. Quality Stroke Does the patient have a stroke diagnosis?: No VTE Prior VTE?: No VTE Risk Level:: Surgical - low VTE Device Contraindication: N/A - Device Ordered VTE Drug Contraindication: Treatment Not Indicated
[2022-10-27] MEDS: estradioL 0.5 MG TABLET 2 MG PO (10:16)
--- NOTE | 2022-10-27 15:22 | PM.EVENT ---
Event Note Date of Service: 10/27/22 Event Note: tolerated regular diet looks well had BMS consistent flatus abd soft, nontender she says she is ready to be discharged ok to dc home Time Spent With Patient Time: Total time managing care of this patient today ____ minutes.
[2022-10-27 15:58] VITALS: PULSE 81; RESP 18; TEMP 36.4; O2SAT 98
--- NOTE | 2022-10-27 16:01 | P.DS_ITS ---
DS: Providers Provider Date of Service: 10/27/22 Date of admission: 10/26/22 02:31 Primary care physician: Debbi Marquez MD Attending physician on admission: Alcides Singh Attending physician on discharge: Corey Escobar DS: Diagnosis Discharge Diagnosis (1) Partial obstruction of small intestine: Status: Resolved DS: Summary Hospital Course Hospital Course: HPI AT ADMISSION: Leandra Galvez is a 72 year old female with a history of multiple prior abdominal surgeries as well as having an episode of a partial small-bowel obstruction in the past who now presents here with similar abdominal complaints of abdominal distention, pain, failure of passage of flatus and stool for last few days. Chart was reviewed and patient evaluated. After evaluation this morning, patient has had marked improvement of her symptoms. She has passed some flatus. Her abdominal swelling has also decreased. HOSPITAL COURSE: Patient was admitted to the surgical service for further treatment of the Partial small-bowel obstruction. NGT was placed in the ED. She felt improved and therefore supportive measures were continued with NGT to suction, bowel rest, IVF. The following day she began to pass flatus. Her NGT mendoza d scant output. her abdomen was benign and soft, nondistended. Her NGT was removed and her diet was advanced to clear liquids and further as tolerated. The patient was reassessed later in the day and was tolerating a solid diet, had good GI function with a benign abd exam. She felt ready for discharge. She was discharged to home on 10/27/22 in stable condition. Status at Discharge Functional status at discharge: independent ambulation Time Attestation Discharge Coordination Time (in mins): 30 Quality: Safe Use of Opioids Does Pt have an Active Cancer Diagnosis on the Problem List?: No Quality: Stroke Does the patient have a stroke diagnosis?: No Physical Exam Vital Signs: Vital Signs: Last Vital Signs Temp 97.6 F 10/27/22 15:58 Pulse 81 10/27/22 15:58 Resp 18 10/27/22 15:58 BP 141/71 H 10/27/22 07:03 Pulse Ox 98 10/27/22 15:58 O2 Del Method Room Air 10/27/22 15:58 BMI result Body Mass Index 37.9 Const: Orientation/consciousness: patient oriented x3 Resp: Effort & Inspection: normal respiratory effort GI: Inspection: No distended Palpation (GI): Soft to palpation and nonte nder Neuro: General: patient oriented x3 Discharge Plan Discharge Anticipated Discharge Date/Time: 10/27/22 16:11 Patient Disposition: Home, Self-Care Discharge Diagnosis: partial small-bowel obstruction Referrals: Debbi Marquez MD [Primary Care Provider] - 1 Week Alcides Singh MD [Physician] - 1 Week Discharge Medications: Continued bisacodyl [Dulcolax (bisacodyl)] 5 mg Tablet,Delayed Release (Dr/Ec) 10 mg PO DAILY cholecalciferol (vitamin D3) [Vitamin D3] 50 mcg (2,000 unit) Tablet 50 mcg PO DAILY omeprazole magnesium 20 mg Capsule,Delayed Release(Dr/Ec) 20 mg PO DAILY@0630 PRN (Reason: Acid Reflux) hyoscyamine sulfate 0.125 mg tablet 0.125 mg PO DAILY PRN (Reason: dyspepsia) Qty: 30 1RF estradiol [Estrace] 2 mg tablet 2 mg PO DAILY docusate sodium [Colace] 100 mg capsule 200 mg PO DAILY No Action hydrochlorothiazide 12.5 mg tablet 12.5 mg PO DAILY Qty: 90 3RF trazodone 100 mg tablet 100 mg PO BEDTIME Qty: 90 3RF atorvastatin 20 mg tablet 20 mg PO DAILY Qty: 90 4RF magnesium 250 mg tablet 250 mg PO DAILY amitriptyline 25 mg tablet 25 mg PO BEDTIME 90 Days Qty: 90 0RF Rx Instructions: 1 tab daily at bedtime for 2 weeks, then may increase to 2 tabs daily at bedtime oxycodone 5 mg tablet 5 mg PO BID PRN (Reason: pain) 30 Days Qty: 60 0RF Rx Instructions: Partial Fill upon patient request. Discharge Orders: Discharge Order (Routine); Ordered 10/27/22 Ordered By: Corey Escobar Diet: Advance to usual diet Activity on Discharge: No heavy lifting Stand Alone Forms: Patient Portal Discharge page Print Language: Citizen Of [place] Care Plan Goals: back to baseline Health Concerns: none Plan of Treatment: convalesced Assessment: stable Discharge Date/Time: 10/27/22 16:36
--- NOTE | 2022-10-27 16:22 | MHC.CM.PN ---
IMM 10/27/22 DX SBO She lives by herself. She is independent with all functional mobility. SBO has resolved. NG tube discontinued. Patient is discharged home self care. Pts dtr will provide transportation.
== END 2022-10-27 16:36 | disposition home or self-care (01) | DRG 390 ==
LOC: HO.ED 10-26 01:15 → HO.EDOVER 10-26 02:38 → HO.S3 10-26 15:21
PROVIDERS: Admitting Provider Surgery; Emergency Provider Emergency Medicine Emergency Medical Services; PCP Internal Medicine; Visit Provider Surgery
DX: K56.600 Partial intestinal obstruction, unspecified as to cause (principal); Z87.891 Personal history of nicotine dependence; Z98.84 Bariatric surgery status; Z79.899 Other long term (current) drug therapy
CPT/HCPCS: 36415; 74177; 80048; 80076; 81003; 83605; 83690; 85025; 87040; 99285; J1170; J2405; J2543; Q9967

== ENCOUNTER → 2022-10-26 02:31 | Outpatient (BNV) | payer MEDICARE, OTHER, SELFPAY | PROVIDERS: Admitting Provider Surgery; Emergency Provider Emergency Medicine Emergency Medical Services; PCP Internal Medicine; Visit Provider Physician Assistant Surgical | DX: K56.600 Partial intestinal obstruction, unspecified as to cause (principal) | CPT/HCPCS: 99499 ==

== ENCOUNTER → 2022-10-26 02:31 | Outpatient (BNV) | payer MEDICARE, OTHER, SELFPAY | PROVIDERS: Admitting Provider Surgery; Emergency Provider Emergency Medicine Emergency Medical Services; PCP Internal Medicine; Visit Provider Surgery | DX: K56.600 Partial intestinal obstruction, unspecified as to cause (principal) | CPT/HCPCS: 99222; 99232; 99499 ==

== ENCOUNTER → 2022-11-08 08:15 | Outpatient (BNVA) | payer MEDICARE, OTHER, SELFPAY | PROVIDERS: PCP Internal Medicine; Visit Provider Registered Nurse Emergency | DX: Z51.81 Encounter for therapeutic drug level monitoring (principal); F11.20 Opioid dependence, uncomplicated | CPT/HCPCS: 99211 ==

== ENCOUNTER 2022-12-06 08:09 | Outpatient (AMB) | payer MEDICARE, OTHER, SELFPAY ==
--- NOTE | 2022-12-06 08:26 | A.OFFVIS_ITS ---
Intake Vital Signs 12/06/22 08:27 Height 5 ft 2 in Weight 180 lb BMI 32.9 BP 108/56 L Blood Pressure Location Lt brachial Position Sitting Respiration 16 Pulse 75 Pulse Source Pulse Oximeter Pulse Oximetry (%) 99 Oxygen Delivery Method Room Air Intake Visit Reasons: Pill count/Lvm Allergies buprenorphine [Belbuca] Allergy (Unknown, Verified 11/08/22 08:31) stomach upset NSAIDS (Non-Steroidal Anti-Inflamma Allergy (Unknown, Verified 11/08/22 08:31) Stomach Upset HPI HPI Comments History of Present Illness Details Leandra is a very pleasant 72-year-old female who presents to the office for follow up chronic back pain and chronic opioid therapy management. Patient is prescribed oxycodone 5 mg take 1 tablet daily as needed. Patient arrived today with the expectation of having 21 pills, she presented 26 pills which were counted in the presence of two staff members and returned to the patient in the original prescription bottle. This demonstrates responsible attitude toward patient's opioid medications. Pain is reported today as 6/10 and last dose of pain medication was taken yesterday afternoon. Pain is well managed on current opioid regimen. Patient denies any recent changes or exacerbations of chronic back pain and states she is able to engage in activities of daily living with minimal interruption due to chronic pain. Patient denies side effects including somnolence, constipation, itching, dyspnea, rash, dizziness or weakness. Prior: Leandra presents back to the office today for follow up chronic pain and chronic opioid therapy management. She is prescribed Oxycodone 5mg take 1 tablet daily. Patient arrived today with the expectation of having 16 pills, she presented 19 pills which were counted in the presence of two staff members and returned to the patient in the original prescription bottle. This demonstrates responsible attitude toward patient's opioid medications. Pain is reported today as 4/10 and last dose of pain medication was taken at 2pm yesterday. Pain is well managed on current opioid regimen. Patient denies any recent changes or exacerbations of chronic back pain and states she is able to engage in activities of daily living with minimal interruption due to chronic pain. Patient denies side effects including somnolence, constipation, itching, dyspnea, rash, dizziness or weakness. She spoke with pharmacy and was told that Vicodin remains on backorder nationwide, she would like to continue with Oxycodone at this time. Previously: Patient had fifth SUSSY , reports still receiving good effect and does not wish to schedule repeat at this time. She has PHQ score is equal to 1, Her opioid addiction risk score is equal to 2 Total score is equal to 3 she is low risk for opioid addiction. [facility] Medical History Bilateral primary osteoarthritis of knee Chronic pain syndrome Disc degeneration, lumbar Dyslipidemia Essential hypertension Irritable bowel syndrome Obesity (BMI 30.0-34.9) Osteopenia of multiple sites Prolapse of anterior vaginal 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, lumbar region Surgical History H/O abdominoplasty History of carpal tunnel surgery History of cholecystectomy History of hysterectomy History of laparoscopic appendectomy History of lumbar laminectomy History of reduction mammoplasty History of tonsillectomy Hx of bariatric surgery Family History Mother Diabetes mellitus Essential hypertension Cardiovascular disease Daughter Wernicke-Korsakoff syndrome (alcoholic) Social History Household Members: None Household Members Other:: 0 Housing: House Do you presently have visiting nurse or other home services: No Alcohol intake: never Patient Tobacco Use Status: Former Tobacco user Advance Directives Date on File: 12/22/21 service: No Current occupational status: retired Review of Systems Const All systems reviewed & are unremarkable except as noted in HPI and below Physical Exam Vital Signs: Last Vital Signs Pulse 75 12/06/22 08:27 Resp 16 12/06/22 08:27 BP 108/56 L 12/06/22 08:27 Pulse Ox 99 12/06/22 08:27 Oxygen Delivery Method Room Air 12/06/22 08:27 BMI result Body Mass Index 32.9 General: awake, alert, oriented. Answers questions appropriately. Fully engaged in examination. Skin: warm, dry, intact without visible rashes or lesions. HEENT: Normocephalic. Conjuntivae clear without exudate. Sclera non-icteric. Hearing intact. Cardiac: External chest normal in appearance. Respiratory: No signs of trauma. No signs of respiratory distress. No cough, audible wheezing or stridor. Abdomen: without gross distension. MS: No obvious swelling or deformities. Able to transition from sit to stand unassisted. Ambulates with bilaterally normal heel strike and toe off Neurological: Oriented to person, place, time and situation. Thought process intact. No gait abnormalities appreciated. Psychiatric: Appropriate mood and affect. Good judgment and insight. Assessment & Plan Assessment & Plan (1) Spondylosis without myelopathy or radiculopathy, lumbar region: Code(s): M47.816 - Spondylosis without myelopathy or radiculopathy, lumbar region (2) Bilateral primary osteoarthritis of knee: Code(s): M17.0 - Bilateral primary osteoarthritis of knee (3) Chronic pain syndrome: Code(s): G89.4 - Chronic pain syndrome (4) Disc degeneration, lumbar: Code(s): M51.36 - Other intervertebral disc degeneration, lumbar region (5) Trochanteric bursitis, left hip: Code(s): M70.62 - Trochanteric bursitis, left hip Plan Masspat was reviewed and without concerns. No obvious signs of diversion, abuse or misuse of the opioid medications. Will send in prescription for oxycodone 5mg po daily with an advanced date of 12/27/2022. Continue with caudal SUSSY every 3 months as needed, patient will inform us when she feels she is ready to repeat. Patient to follow-up in the office in 1 month, sooner if needed. All questions and concerns have been answered and patient agrees with the plan. Medications: Refilled oxycodone Partial Fill upon patient request. Patient is recommended to take a half pill of oxycodone once or twice a day p.r.n. pain. 5 mg PO DAILY PRN 30 tabs 0RF pain 30 days Coding Level of Care Code Est Pt Level 4 (25089) Diagnoses Spondylosis without myelopathy or radiculopathy, lumbar region M47.816 Bilateral primary osteoarthritis of knee M17.0 Chronic pain syndrome G89.4 Disc degeneration, lumbar M51.36 Trochanteric bursitis, left hip M70.62
[2022-12-06 08:27] VITALS: BP 108/56; PULSE 75; RESP 16; O2SAT 99; BMI 32.9
== END 2022-12-06 08:41 | disposition home or self-care (01) ==
PROVIDERS: PCP Internal Medicine; Visit Provider Registered Nurse Emergency
DX: G89.4 Chronic pain syndrome (principal); Z79.891 Long term (current) use of opiate analgesic; M47.816 Spondylosis without myelopathy or radiculopathy, lumbar region; M17.0 Bilateral primary osteoarthritis of knee; M51.36 Other intervertebral disc degeneration, lumbar region; M70.62 Trochanteric bursitis, left hip
CPT/HCPCS: 99214

== ENCOUNTER → 2022-12-06 08:09 | Outpatient (BNVA) | payer MEDICARE, OTHER, SELFPAY | PROVIDERS: PCP Internal Medicine; Visit Provider Registered Nurse Emergency | DX: Z51.81 Encounter for therapeutic drug level monitoring (principal); F11.20 Opioid dependence, uncomplicated; M17.0 Bilateral primary osteoarthritis of knee; M47.816 Spondylosis without myelopathy or radiculopathy, lumbar region; M51.36 Other intervertebral disc degeneration, lumbar region; M70.62 Trochanteric bursitis, left hip; G89.4 Chronic pain syndrome | CPT/HCPCS: 99212 ==

== ENCOUNTER 2022-12-21 08:33 | Outpatient (AMB) | payer MEDICARE, OTHER, SELFPAY ==
--- NOTE | 2022-12-21 08:36 | MHC.OFFWIV ---
Intake Vital Signs 12/21/22 08:37 Height 5 ft 2 in Weight 180 lb BMI 32.9 BP 134/70 Blood Pressure Location Lt brachial Position Sitting Pulse 96 Pulse Source Pulse Oximeter Temp 96.8 F Temp Source Temporal Artery Scan Pulse Oximetry (%) 99 Oxygen Delivery Method Room Air Intake Visit Reasons: EP AB Pain [id number] Intake Note: Pt is here c/o left pelvic pain. Pt states no falls or injuries but she felt like she pulled something when doing yard work. Patient Tobacco Use Status: Former Tobacco user Allergies buprenorphine [Belbuca] Allergy (Unknown, Verified 12/21/22 08:36) stomach upset NSAIDS (Non-Steroidal Anti-Inflamma Allergy (Unknown, Verified 12/21/22 08:36) Stomach Upset Do you need a note to return to daycare/school/sports/work: No HPI EP AB Pain [id number] HPI Details Patient presents with left muscular pain on her left upper hip region. This started following extensive gardening and yard work over the weekend. She has been applying ice without relief. Denies any acute event or fall which incited pain. Denies any abdominal pain. Denies any fever or chills. Denies leg weakness. Pain worse with elevating leg, for example getting into a car. [facility] Medical History Obesity (BMI 30.0-34.9) Disc degeneration, lumbar Prolapse of anterior vaginal wall Essential hypertension Osteopenia of multiple sites Dyslipidemia Irritable bowel syndrome Chronic pain syndrome Bilateral primary osteoarthritis of knee Spondylosis without myelopathy or radiculopathy, lumbar region Surgical History History of tonsillectomy History of hysterectomy History of carpal tunnel surgery History of cholecystectomy History of laparoscopic appendectomy History of lumbar laminectomy History of reduction mammoplasty H/O abdominoplasty Hx of bariatric surgery Family History Mother Diabetes mellitus Essential hypertension Cardiovascular disease Daughter Wernicke-Korsakoff syndrome (alcoholic) Social History Household Members: None Household Members Other:: 0 Housing: House Do you presently have visiting nurse or other home services: No Alcohol intake: never Patient Tobacco Use Status: Former Tobacco user Advance Directives Date on File: 12/22/21 service: No Current occupational status: retired Review of Systems Const All systems reviewed & are unremarkable except as noted in HPI and below Physical Exam Vital Signs: Last Vital Signs Temp 96.8 F 12/21/22 08:37 Pulse 96 12/21/22 08:37 BP 134/70 12/21/22 08:37 Pulse Ox 99 12/21/22 08:37 Oxygen Delivery Method Room Air 12/21/22 08:37 BMI result Body Mass Index 32.9 Const General: cooperative, healthy appearing, comfortable and no acute distress HEENT Head: Yes normal to inspection Resp Effort & Inspection: normal respiratory effort and able to speak in complete sentences GI Inspection: Yes normal to inspection Palpation (GI): Soft to palpation and No hepatosplenomegaly present Skin General skin exam: no rashes or lesions noted Extrem Other: Left lower extremity range of motion, cap refill normal. Hip exam normal with full, painless range of motion. No impingement signs. Tenderness to palpation at site of left gluteal minimus. No radiation of pain. Psych Appearance: grossly normal Mental Status: mental status grossly normal Speech and movement: Normal speech and movement present Assessment & Plan Assessment & Plan (1) Strain of gluteus medius: Code(s): S76.019A - Strain of muscle, fascia and tendon of unspecified hip, initial encounter Qualifiers: Encounter type: initial encounter Laterality: left Qualified Code(s): S76.012A - Strain of muscle, fascia and tendon of left hip, initial encounter Plan: Patient's exam today is consistent with a left gluteal minimus strain, which she likely experienced from extensive gardening and yd work over the last week. She is on an opioid [facility], 5 mg oxycodone daily, which she does well on. She cannot take NSAIDs due to GI issues. I spoke with Dr. Stratton, and he is agreeable to a short course of muscle relaxers for this patient, in addition to lidocaine patch application, and heat/ice application, and gentle stretching I discussed this with patient and she agrees. If she does not improve with time and these conservative measures, she should follow-up with us or with her PCP Dr. Marquez for further evaluation. Patient agrees to plan. Medications: New cyclobenzaprine 5 mg PO TID 3 days PRN 9 tabs 0RF muscle spasm S76.012A - Strain of muscle, fascia and tendon of left hip, initial encounter Coding Level of Care Code Est Pt Level 3 (75326) Diagnoses Strain of gluteus medius of left lower extremity, initial encounter S76.012A Encounter type: initial encounter Laterality: left
[2022-12-21 08:37] VITALS: BP 134/70; PULSE 96; TEMP 36; O2SAT 99; BMI 32.9
== END 2022-12-21 09:10 | disposition home or self-care (01) ==
LOC: HO.HMGWI 08:33
PROVIDERS: PCP Internal Medicine
DX: S76.012A Strain of muscle, fascia and tendon of left hip, initial encounter (principal)
CPT/HCPCS: 99213

== ENCOUNTER 2023-01-03 08:11 | Outpatient (AMB) | payer MEDICARE, OTHER, SELFPAY ==
[2023-01-03 08:22] VITALS: BP 135/75; PULSE 98; RESP 16; O2SAT 97; BMI 32.9
--- NOTE | 2023-01-03 08:22 | A.OFFVIS_ITS ---
Intake Vital Signs 01/03/23 08:22 Height 5 ft 2 in Weight 180 lb BMI 32.9 BP 135/75 Blood Pressure Location Lt brachial Position Sitting Respiration 16 Pulse 98 Pulse Source Pulse Oximeter Pulse Oximetry (%) 97 Oxygen Delivery Method Room Air Intake Visit Reasons: Pill count Allergies buprenorphine [Belbuca] Allergy (Unknown, Verified 12/21/22 08:36) stomach upset NSAIDS (Non-Steroidal Anti-Inflamma Allergy (Unknown, Verified 12/21/22 08:36) Stomach Upset HPI HPI Comments History of Present Illness Details Leandra is a very pleasant 72-year-old female who presents to the office for follow up chronic back pain and chronic opioid therapy management. Patient is prescribed oxycodone 5 mg take 1 tablet daily as needed. Patient arrived today with the expectation of having 23 pills, she presented 29 pills which were counted in the presence of two staff members and returned to the patient in the original prescription bottle. This demonstrates responsible attitude toward patient's opioid medications. Pain is reported today as 0/10 and last dose of pain medication was taken 01/04. Pain is well managed on current opioid regimen. Patient denies any recent changes or exacerbations of chronic back pain and states she is able to engage in activities of daily living with minimal interruption due to chronic pain. Patient denies side effects including somnolence, constipation, itching, d yspnea, rash, dizziness or weakness. She is also reporting today productive cough for last several days, green phlegm. Reports cough is exhausting. She also endorses sweats but has not checked her temperature. She denies pain with palpation over sinuses. Denies shortness of breath or history of respiratory disease. She has not called PCP because in the past she was referred to as they dont have sick visits. She was hoping it would resolve on its own but does report having similar episodes in the remote past, greater than one year ago, and states Z-Timothy was effective. She has not tested herself for flu or covid. Previously: Patient had fifth SUSSY 3/13560, reports still receiving good effect and does not wish to schedule repeat at this time. She has PHQ score is equal to 1, Her opioid addiction risk score is equal to 2 Total score is equal to 3 she is low risk for opioid addiction. [facility] Medical History Obesity (BMI 30.0-34.9) Disc degeneration, lumbar Prolapse of anterior vaginal wall Essential hypertension Osteopenia of multiple sites Dyslipidemia Irritable bowel syndrome Chronic pain syndrome Bilateral primary osteoarthritis of knee Spondylosis without myelopathy or radiculopathy, lumbar region Surgical History History of tonsillectomy History of hysterectomy History of carpal tunnel surgery History of cholecystectomy History of laparoscopic appendectomy History of lumbar laminectomy History of reduction mammoplasty H/O abdominoplasty Hx of bariatric surgery Family History Mother Diabetes mellitus Essential hypertension Cardiovascular disease Daughter Wernicke-Korsakoff syndrome (alcoholic) Social History Household Members: None Household Members Other:: 0 Housing: House Do you presently have visiting nurse or other home services: No Alcohol intake: never Patient Tobacco Use Status: Former Tobacco user Advance Directives Date on File: 12/22/21 service: No Current occupational status: retired Review of Systems Const All systems reviewed & are unremarkable except as noted in HPI and below Physical Exam Vital Signs: Last Vital Signs Pulse 98 01/03/23 08:22 Resp 16 01/03/23 08:22 BP 135/75 01/03/23 08:22 Pulse Ox 97 01/03/23 08:22 Oxygen Delivery Method Room Air 01/03/23 08:22 BMI result Body Mass Index 32.9 General: awake, alert, oriented. Answers questions appropriately. Fully engaged in examination. Mask in place during visit. Skin: warm, dry, intact without visible rashes or lesions. HEENT: Normocephalic. Conjuntivae clear without exudate. Sclera non-icteric. Hearing intact. Cardiac: External chest normal in appearance. Respiratory: Productive cough. Diffuse Rales that improve with cough. Abdomen: without gross distension. MS: No obvious swelling or deformities. Able to transition from sit to stand unassisted. Ambulates with bilaterally normal heel strike and toe off Neurological: Oriented to person, place, time and situation. Thought process intact. No gait abnormalities appreciated. Psychiatric: Appropriate mood and affect. Good judgment and insight. Assessment & Plan Assessment & Plan (1) Spondylosis without myelopathy or radiculopathy, lumbar region: Code(s): M47.816 - Spondylosis without myelopathy or radiculopathy, lumbar region (2) Bilateral primary osteoarthritis of knee: Code(s): M17.0 - Bilateral primary osteoarthritis of knee (3) Chronic pain syndrome: Code(s): G89.4 - Chronic pain syndrome (4) Disc degeneration, lumbar: Code(s): M51.36 - Other intervertebral disc degeneration, lumbar region (5) Trochanteric bursitis, left hip: Code(s): M70.62 - Trochanteric bursitis, left hip (6) URI (upper respiratory infection): Code(s): J06.9 - Acute upper respiratory infection, unspecified Plan: Z-timothy ordered, take as directed Tylenol as needed Benzonatate 100mg po BID as needed for cough Drink plenty of fluids Get plenty of rest Follow up with pcp if no improvement or if getting worse Seek evaluation in the ER for worsening symptoms, weakness, dizziness, chest pain, difficulty breathing Plan Masspat was reviewed and without concerns. No obvious signs of diversion, abus e or misuse of the opioid medications. Will send in prescription for oxycodone 5mg po daily with an advanced date of 01/27/2023. Continue with caudal SUSSY every 3 months as needed. Patient to follow-up in the office in 1 month, sooner if needed. All questions and concerns have been answered and patient agrees with the plan. Medications: New benzonatate 100 mg PO BID PRN 20 caps 0RF cough azithromycin (Zithromax Z-Timothy) For 250 mg dose pack: take 500 mg today (day 1), then 250 mg for 4 days (days 2-5) PO 6 tabs 0RF Refilled oxycodone Partial Fill upon patient request. Patient is recommended to take a half pill of oxycodone once or twice a day p.r.n. pain. 5 mg PO DAILY 30 days PRN 30 tabs 0RF pain Coding Level of Care Code Est Pt Level 4 (28288) Diagnoses Spondylosis without myelopathy or radiculopathy, lumbar region M47.816 Bilateral primary osteoarthritis of knee M17.0 Chronic pain syndrome G89.4 Disc degeneration, lumbar M51.36 Trochanteric bursitis, left hip M70.62 URI (upper respiratory infection) J06.9
== END 2023-01-03 08:30 | disposition home or self-care (01) ==
PROVIDERS: PCP Internal Medicine; Visit Provider Registered Nurse Emergency
DX: M47.816 Spondylosis without myelopathy or radiculopathy, lumbar region (principal); M17.0 Bilateral primary osteoarthritis of knee; G89.4 Chronic pain syndrome; M51.36 Other intervertebral disc degeneration, lumbar region; M70.62 Trochanteric bursitis, left hip; J06.9 Acute upper respiratory infection, unspecified
CPT/HCPCS: 99214

== ENCOUNTER → 2023-01-03 08:11 | Outpatient (BNVA) | payer MEDICARE, OTHER, SELFPAY | PROVIDERS: PCP Internal Medicine; Visit Provider Registered Nurse Emergency | DX: Z51.81 Encounter for therapeutic drug level monitoring (principal); F11.20 Opioid dependence, uncomplicated; M47.816 Spondylosis without myelopathy or radiculopathy, lumbar region; M17.0 Bilateral primary osteoarthritis of knee; M51.36 Other intervertebral disc degeneration, lumbar region; M70.62 Trochanteric bursitis, left hip; J06.9 Acute upper respiratory infection, unspecified; G89.4 Chronic pain syndrome | CPT/HCPCS: 99212 ==

== ENCOUNTER 2023-01-31 08:08 | Outpatient (AMB) | payer MEDICARE, OTHER, SELFPAY ==
[2023-01-31 08:26] VITALS: BP 130/82; PULSE 108; RESP 16; O2SAT 96; BMI 32.8
--- NOTE | 2023-01-31 08:26 | A.OFFVIS_ITS ---
Intake Vital Signs 01/31/23 08:26 Height 5 ft 2 in Weight 179 lb 8 oz BMI 32.8 BP 130/82 Blood Pressure Location Lt brachial Position Sitting Respiration 16 Pulse 108 H Pulse Source Pulse Oximeter Pulse Oximetry (%) 96 Oxygen Delivery Method Room Air Intake Visit Reasons: Pill count/Confirmed Allergies buprenorphine [Belbuca] Allergy (Unknown, Verified 01/31/23 08:26) stomach upset NSAIDS (Non-Steroidal Anti-Inflamma Allergy (Unknown, Verified 01/31/23 08:26) Stomach Upset HPI HPI Comments History of Present Illness Details Leandra is a very pleasant 72-year-old female who presents to the office for follow up chronic back pain and chronic opioid therapy management. Patient is prescribed oxycodone 5 mg take 1 tablet daily as needed. Patient arrived today with the expectation of having 26 pills, she presented 28 pills which were counted in the presence of two staff members and returned to the patient in the original prescription bottle. This demonstrates responsible attitude toward patient's opioid medications. Pain is reported today as 3/10 and last dose of pain medication was taken yesterday at 2pm. Pain is well managed on current opioid regimen. Patient denies any recent changes or exacerbations of chronic back pain and states she is able to engage in activities of daily living with minimal interruption due to chronic pain. Patient denies side effects including somnolence, constipation, itching, dyspnea, rash, dizziness or weakness. Previously: Patient had fifth SUSSY , reports still receiving good effect and does not wish to schedule repeat at this time. She has PHQ score is equal to 1, Her opioid addiction risk score is equal to 2 Total score is equal to 3 she is low risk for opioid addiction. [facility] Medical History (Updated 01/31/23 @ 08:46 by Nasreen Hernandez, FACILITY MAINTENANCE TECHNICIAN, MOLD CLOSER HELPER) URI (upper respiratory infection) Obesity (BMI 30.0-34.9) Disc degeneration, lumbar Prolapse of anterior vaginal wall Essential hypertension Osteopenia of multiple sites Dyslipidemia Irritable bowel syndrome Chronic pain syndrome Bilateral primary osteoarthritis of knee Spondylosis without myelopathy or radiculopathy, lumbar region Surgical History History of tonsillectomy History of hysterectomy History of carpal tunnel surgery History of cholecystectomy History of laparoscopic appendectomy History of lumbar laminectomy History of reduction mammoplasty H/O abdominoplasty Hx of bariatric surgery Family History Mother Diabetes mellitus Essential hypertension Cardiovascular disease Daughter Wernicke-Korsakoff syndrome (alcoholic) Social History Household Members: None Household Members Other:: 0 Housing: House Do you presently have visiting nurse or other home services: No Alcohol intake: never Patient Tobacco Use Status: Former Tobacco user Advance Directives Date on File: 12/22/21 service: No Current occupational status: retired Review of Systems Const All systems reviewed & are unremarkable except as noted in HPI and below Physical Exam Vital Signs: Last Vital Signs Pulse 108 H 01/31/23 08:26 Resp 16 01/31/23 08:26 BP 130/82 01/31/23 08:26 Pulse Ox 96 01/31/23 08:26 Oxygen Delivery Method Room Air 01/31/23 08:26 BMI result Body Mass Index 32.8 General: awake, alert, oriented. Answers questions appropriately. Fully engaged in examination. Skin: warm, dry, intact without visible rashes or lesions. HEENT: Normocephalic. Conjuntivae clear without exudate. Sclera non-icteric. Hearing intact. Cardiac: External chest normal in appearance. Respiratory: No signs of trauma. No signs of respiratory distress. No cough, audible wheezing or stridor. Abdomen: without gross distension. MS: No obvious swelling or deformities. Able to transition from sit to stand unassisted. Ambulates with bilaterally normal heel strike and toe off Neurological: Oriented to person, place, time and situation. Thought process intact. No gait abnormalities appreciated. Psychiatric: Appropriate mood and affect. Good judgment and insight. Assessment & Plan Assessment & Plan (1) Spondylosis without myelopathy or radiculopathy, lumbar region: Code(s): M47.816 - Spondylosis without myelopathy or radiculopathy, lumbar region (2) Bilateral primary osteoarthritis of knee: Code(s): M17.0 - Bilateral primary osteoarthritis of knee (3) Chronic pain syndrome: Code(s): G89.4 - Chronic pain syndrome (4) Disc degeneration, lumbar: Code(s): M51.36 - Other intervertebral disc degeneration, lumbar region (5) Trochanteric bursitis, left hip: Code(s): M70.62 - Trochanteric bursitis, left hip Plan Masspat was reviewed and without concerns. No obvious signs of diversion, abuse or misuse of the opioid medications. Will send in prescription for oxycodone 5mg po daily with an advanced date of 02/25/2023. Continue with caudal SUSSY every 3 months as needed. Patient to follow-up in the office in 1 month, sooner if needed. All questions and concerns have been answered and patient agrees with the plan. Medications: Refilled oxycodone Partial Fill upon patient request. Patient is recommended to take a half pill of oxycodone once or twice a day p.r.n. pain. 5 mg PO DAILY 30 days PRN 30 tabs 0RF pain Coding Level of Care Code Est Pt Level 3 (83962) Diagnoses Spondylosis without myelopathy or radiculopathy, lumbar region M47.816 Bilateral primary osteoarthritis of knee M17.0 Chronic pain syndrome G89.4 Disc degeneration, lumbar M51.36 Trochanteric bursitis, left hip M70.62
== END 2023-01-31 08:40 | disposition home or self-care (01) ==
PROVIDERS: PCP Internal Medicine; Visit Provider Registered Nurse Emergency
DX: G89.4 Chronic pain syndrome (principal); M47.816 Spondylosis without myelopathy or radiculopathy, lumbar region; M17.0 Bilateral primary osteoarthritis of knee; M51.36 Other intervertebral disc degeneration, lumbar region; M70.62 Trochanteric bursitis, left hip
CPT/HCPCS: 99214

== ENCOUNTER → 2023-01-31 08:08 | Outpatient (BNVA) | payer MEDICARE, OTHER, SELFPAY | PROVIDERS: PCP Internal Medicine; Visit Provider Registered Nurse Emergency | DX: Z51.81 Encounter for therapeutic drug level monitoring (principal); F11.20 Opioid dependence, uncomplicated; M47.816 Spondylosis without myelopathy or radiculopathy, lumbar region; M17.0 Bilateral primary osteoarthritis of knee; M51.36 Other intervertebral disc degeneration, lumbar region; M70.62 Trochanteric bursitis, left hip; G89.4 Chronic pain syndrome | CPT/HCPCS: 99212 ==

== ENCOUNTER 2023-02-12 09:55 | Outpatient (REF) | payer MEDICARE, OTHER, SELFPAY ==
--- NOTE | ~2023-02-12 | MM_ITS ---
EXAMINATION: MM SCREENING DIGITAL BREAST TOMOSYNTHESIS, BILATERAL CLINICAL INFORMATION: Screening. Asymptomatic. The patient is status post breast reduction. COMPARISON: Mammography: This study is compared with prior exams dating back to 2017. TECHNIQUE: Digital breast tomosynthesis is performed in both the craniocaudal and mediolateral oblique views along with computer-aided detection (CAD). Synthesized 2D images are generated from the tomosynthesis. FINDINGS: There are scattered areas of fibroglandular density (ACR BI-RADS breast composition Category b). There are no significant masses, abnormal calcifications, or other abnormalities. There are post reduction changes present in each breast. These changes include bilateral benign calcifications representing fat necrosis. All of these findings are benign. MM/MM tomosynthesis screening BI IMPRESSION: No mammographic evidence of malignancy. ASSESSMENT: BI-RADS BI-RADS 2 - Benign Findings RECOMMENDATION: Routine annual mammography screening. 1 year F/U This examination should not preclude the clinical evaluation of a suspicious palpable abnormality. This patient's information was entered into a reminder system with a target due date for their next mammogram.
== END 2023-02-12 09:56 | disposition home or self-care (01) ==
LOC: HO.MAMMO 09:55
PROVIDERS: PCP Internal Medicine; Visit Provider Internal Medicine
DX: Z12.31 Encounter for screening mammogram for malignant neoplasm of breast (principal)
CPT/HCPCS: 77063; 77067

== ENCOUNTER → 2023-02-12 10:15 | Outpatient (BNV) | payer MEDICARE, OTHER, SELFPAY | PROVIDERS: PCP Internal Medicine; Visit Provider Radiology Diagnostic Radiology | DX: Z12.31 Encounter for screening mammogram for malignant neoplasm of breast (principal) | CPT/HCPCS: 77063; 77067 ==

== ENCOUNTER 2023-02-19 06:39 | Outpatient (REF) | payer MEDICARE, OTHER, SELFPAY ==
[2023-02-19 12:11] LABS: Alanine Aminotransferase 13 U/L (0-31); Anion Gap 12 (12-20); Aspartate Amino Transferase 18 U/L (5-31); Blood Urea Nitrogen 12 mg/dL (9-16); Calcium 9.3 mg/dL (8.4-10.2); Carbon Dioxide 26 mmol/L (22-29); Chloride 106 mmol/L (96-108); Cholesterol 207 mg/dL (<200); Estimated Glomerular Filt Rate > 60; Glucose Fasting 84 mg/dL (60-99); HDL Cholesterol 86 mg/dL (>40); LDL Cholesterol Calculated 100 mg/dL (<100); Potassium 3.6 mmol/L (3.3-5.1); Sodium 140 mmol/L (135-145); Triglycerides 108 mg/dL (<150)
[2023-02-19 12:12] LABS: Vitamin D 25-OH Total 67.2 ng/mL (>30)
== END 2023-02-19 06:40 | disposition home or self-care (01) ==
LOC: HO.HMGCLDS 06:39
PROVIDERS: PCP Internal Medicine; Visit Provider Internal Medicine
DX: I10 Essential (primary) hypertension (principal); E78.5 Hyperlipidemia, unspecified; E66.9 Obesity, unspecified; Z79.890 Hormone replacement therapy
CPT/HCPCS: 36415; 80048; 80061; 82306; 84450; 84460

== ENCOUNTER 2023-02-28 08:08 | Outpatient (AMB) | payer MEDICARE, OTHER, SELFPAY ==
[2023-02-28 08:29] VITALS: BP 124/68; PULSE 92; RESP 16; O2SAT 96; BMI 32.8
--- NOTE | 2023-02-28 08:29 | A.OFFVIS_ITS ---
Intake Vital Signs 02/28/23 08:29 Height 5 ft 2 in Weight 179 lb 2 oz BMI 32.8 BP 124/68 Blood Pressure Location Lt brachial Position Sitting Respiration 16 Pulse 92 Pulse Source Pulse Oximeter Pulse Oximetry (%) 96 Oxygen Delivery Method Room Air Intake Visit Reasons: Medication Count/confirmed Allergies buprenorphine [Belbuca] Allergy (Unknown, Verified 02/28/23 08:28) stomach upset NSAIDS (Non-Steroidal Anti-Inflamma Allergy (Unknown, Verified 02/28/23 08:28) Stomach Upset HPI HPI Comments History of Present Illness Details Leandra is a very pleasant 72-year-old female who presents to the office for follow up chronic back pain and chronic opioid therapy management. Patient is prescribed oxycodone 5 mg take 1 tablet daily as needed. Patient arrived today with the expectation of having 29 pills, she presented 29 pills which were counted in the presence of two staff members and returned to the patient in the original prescription bottle. This demonstrates responsible attitude toward patient's opioid medications. Pain is reported today as 6/10 and last dose of pain medication was taken yesterday afternoon. Pain is well managed on current opioid regimen. Patient denies any recent changes or exacerbations of chronic back pain and states she is able to engage in activities of daily living with minimal interruption due to chronic pain. Patient denies side effects including somnolence, constipation, itching, dyspnea, rash, dizziness or weakness. Patient will be travelling to [facility] for 3 weeks, returning end of March. Previously: Patient had fifth SUSSY 3/77060, reports still receiving good effect and does not wish to schedule repeat at this time. She has PHQ score is equal to 1, Her opioid addiction risk score is equal to 2 Total score is equal to 3 she is low risk for opioid addiction. [facility] Medical History (Updated 01/31/23 @ 08:46 by Nasreen Hernandez, POWER HAIR CLIPPER, DEFENSIVE FIRE CONTROL SYSTEMS OPERATOR) URI (upper respiratory infection) Obesity (BMI 30.0-34.9) Disc degeneration, lumbar Prolapse of anterior vaginal wall Essential hypertension Osteopenia of multiple sites Dyslipidemia Irritable bowel syndrome Chronic pain syndrome Bilateral primary osteoarthritis of knee Spondylosis without myelopathy or radiculopathy, lumbar region Surgical History History of tonsillectomy History of hysterectomy History of carpal tunnel surgery History of cholecystectomy History of laparoscopic appendectomy History of lumbar laminectomy History of reduction mammoplasty H/O abdominoplasty Hx of bariatric surgery Family History Mother Diabetes mellitus Essential hypertension Cardiovascular disease Daughter Wernicke-Korsakoff syndrome (alcoholic) Social History Household Members: None Household Members Other:: 0 Housing: House Do you presently have visiting nurse or other home services: No Alcohol intake: never Patient Tobacco Use Status: Former Tobacco user Advance Directives Date on File: 12/22/21 service: No Current occupational status: retired Review of Systems Const All systems reviewed & are unremarkable except as noted in HPI and below Physical Exam Vital Signs: Last Vital Signs Pulse 92 02/28/23 08:29 Resp 16 02/28/23 08:29 BP 124/68 02/28/23 08:29 Pulse Ox 96 02/28/23 08:29 Oxygen Delivery Method Room Air 02/28/23 08:29 BMI result Body Mass Index 32.8 General: awake, alert, oriented. Answers questions appropriately. Fully engaged in examination. Skin: warm, dry, intact without visible rashes or lesions. HEENT: Normocephalic. Conjuntivae clear without exudate. Sclera non-icteric. Hearing intact. Cardiac: External chest normal in appearance. Respiratory: No signs of trauma. No signs of respiratory distress. No cough, audible wheezing or stridor. Abdomen: without gross distension. MS: No obvious swelling or deformities. Able to transition from sit to stand unassisted. Ambulates with bilaterally normal heel strike and toe off Neurological: Oriented to person, place, time and situation. Thought process intact. No gait abnormalities appreciated. Psychiatric: Appropriate mood and affect. Good judgment and insight. Assessment & Plan Assessment & Plan (1) Spondylosis without myelopathy or radiculopathy, lumbar region: Code(s): M47.816 - Spondylosis without myelopathy or radiculopathy, lumbar region (2) Bilateral primary osteoarthritis of knee: Code(s): M17.0 - Bilateral primary osteoarthritis of knee (3) Chronic pain syndrome: Code(s): G89.4 - Chronic pain syndrome (4) Disc degeneration, lumbar: Code(s): M51.36 - Other intervertebral disc degeneration, lumbar region (5) Trochanteric bursitis, left hip: Code(s): M70.62 - Trochanteric bursitis, left hip Plan Massrit was reviewed and without concerns. No obvious signs of diversion, abuse or misuse of the opioid medications. Will send in prescription for oxycodone 5mg po daily with an advanced date of 03/27/2023. Continue with caudal SUSSY every 3 months as needed. Patient to follow-up in the office in 1 month, sooner if needed. Will return end of March after she returns from [facility]. All questions and concerns have been answered and patient agrees with the plan. Medications: Refilled oxycodone Partial Fill upon patient request. Patient is recommended to take a half pill of oxycodone once or twice a day p.r.n. pain. 5 mg PO DAILY PRN 30 tabs 0RF pain 30 days Coding Level of Care Code Est Pt Level 4 (14537) Diagnoses Spondylosis without myelopathy or radiculopathy, lumbar region M47.816 Bilateral primary osteoarthritis of knee M17.0 Chronic pain syndrome G89.4 Disc degeneration, lumbar M51.36 Trochanteric bursitis, left hip M70.62
== END 2023-02-28 08:47 | disposition home or self-care (01) ==
PROVIDERS: PCP Internal Medicine; Visit Provider Registered Nurse Emergency
DX: G89.4 Chronic pain syndrome (principal); M47.816 Spondylosis without myelopathy or radiculopathy, lumbar region; M17.0 Bilateral primary osteoarthritis of knee; M51.36 Other intervertebral disc degeneration, lumbar region; M70.62 Trochanteric bursitis, left hip
CPT/HCPCS: 99214

== ENCOUNTER → 2023-02-28 08:08 | Outpatient (BNVA) | payer MEDICARE, OTHER, SELFPAY | PROVIDERS: PCP Internal Medicine; Visit Provider Registered Nurse Emergency | DX: Z51.81 Encounter for therapeutic drug level monitoring (principal); F11.20 Opioid dependence, uncomplicated; M47.816 Spondylosis without myelopathy or radiculopathy, lumbar region; M17.0 Bilateral primary osteoarthritis of knee; M51.36 Other intervertebral disc degeneration, lumbar region; M70.62 Trochanteric bursitis, left hip; G89.4 Chronic pain syndrome | CPT/HCPCS: 99212 ==

== ENCOUNTER 2023-04-17 08:44 | Outpatient (AMB) | payer MEDICARE, OTHER, SELFPAY ==
[2023-04-17 08:57] VITALS: BP 120/70; PULSE 84; O2SAT 96; BMI 32.6
--- NOTE | 2023-04-17 08:57 | A.OFFPC_ITS ---
Vital Signs 04/17/23 08:57 Height 5 ft 2 in Weight 178 lb BMI 32.6 BP 120/70 Blood Pressure Location Rt brachial Position Sitting Pulse 84 Pulse Source Pulse Oximeter Pulse Oximetry (%) 96 Oxygen Delivery Method Room Air Intake Visit Reasons: 6 month fu Intake Note: Pt is here today for her 6 mo. f/u Allergies buprenorphine [Belbuca] Allergy (Unknown, Verified 04/17/23 09:26) stomach upset NSAIDS (Non-Steroidal Anti-Inflamma Allergy (Unknown, Verified 04/17/23 09:26) Stomach Upset Medication List - Last Reconciled 04/17/23 by Debbi Marquez MD atorvastatin 20 mg PO DAILY bisacodyl (Dulcolax (bisacodyl)) 10 mg PO DAILY cholecalciferol (vitamin D3) (Vitamin D3) 50 mcg PO DAILY docusate sodium (Colace) 200 mg PO DAILY estradiol (Estrace) 2 mg PO DAILY hydrochlorothiazide 12.5 mg PO DAILY hyoscyamine sulfate 0.125 mg PO DAILY PRN magnesium 250 mg PO DAILY omeprazole magnesium 20 mg PO DAILY@0630 PRN oxycodone 5 mg PO DAILY PRN 30 days trazodone 100 mg PO BEDTIME Tobacco use date assessed: 04/17/23 Fall risk assessment: No Falls in past year Last assessed Fall Risk: 04/17/23 Dental Screening Dental Screen Date: 04/17/23 Did you have a dental visit in the last 12 months?: Yes Did you have a dental problem in the last 6 months where you did not have access to dental care?: No Was dental information given to patient?: Patient has dentist HPI 6 month fu HPI Details 72-year-old lady with hyperlipidemia cur rently on atorvastatin 20 mg daily IBS, anemia, here today for her follow-up. She had recent fasting labs done in February 2023 which showed lipids and fasting glucose within normal limits. Complains of a cough productive of greenish phlegm present now for more than 10 days. She also complains postnasal drainage and scratchy throat, but no fever. She has been taking NyQuil which has been affording temporary relief of the postnasal drip and her cough. [facility] Medical History Anemia Obesity (BMI 30.0-34.9) Prolapse of anterior vaginal wall Essential hypertension Osteopenia of multiple sites Dyslipidemia Irritable bowel syndrome Chronic pain syndrome Bilateral primary osteoarthritis of knee Spondylosis without myelopathy or radiculopathy, lumbar region Surgical History History of tonsillectomy History of hysterectomy History of carpal tunnel surgery History of cholecystectomy History of laparoscopic appendectomy History of lumbar laminectomy History of reduction mammoplasty H/O abdominoplasty Hx of bariatric surgery Family History Mother Diabetes mellitus Essential hypertension Cardiovascular disease Daughter Wernicke-Korsakoff syndrome (alcoholic) Social History Household Members: None Household Members Other:: 0 Housing: House Do you presently have visiting nurse or other home services: No Alcohol intake: never Patient Tobacco Use Status: Former Tobacco user e-Cigarette/Vaping Use: Never Used Advance Directives Date on File: 12/22/21 service: No Current occupational status: retired Cognitive needs: No Hearing needs: No Vision needs: No Questionnaire PHQ-9 Over the last 2 weeks, how often have you been bothered by any of the following problems? 1. Little interest or pleasure in doing things: not at all 2. Feeling down, depressed, or hopeless: not at all 3. Trouble falling or staying asleep, or sleeping too much: not at all 4. Feeling tired or having little energy: not at all 5. Poor appetite or overeating: not at all 6. Feeling bad about yourself - or that you are a failure or have let yourself or your family down: not at all 7. Trouble concentrating on things, such as reading the newspaper or watching television: not at all 8. Moving or speaking so slowly that other people could have noticed. Or the opposite - being so fidgety or restless that you have been moving around a lot more than usual: not at all 9. Thoughts that you would be better off or of hurting yourself in some way: not at all Total score: 0 Depression Screening Interpretation: Negative Depression Screening Done: Yes 76094 - PHQ-9 Billing: Yes Source: Developed by Drs. Rashid Woodward, Carmenza Hdez, Landry Jackson and colleagues, with an educational ir[place] from [email or web address]. Thrive Questionnaire Date Thrive assessed: 04/17/23 I am a: Patient What is your living situation today?: I have a steady place to live Within the past 12 months, did the food you bought not last and you didn't have the money to get more?: Never true Within the past 12 months, did you worry whether your food would run out before you got money to buy more?: Never true Do you have trouble paying for medicines?: No Do you have trouble getting transportation to medical appointments?: No Do you have trouble paying your heating and electricity bill?: No Do you have trouble taking care of your child, family member or friend?: No Do you have trouble with day-to-day activities such as bathing, preparing meals, shopping, managing finances, etc.?: No Are you currently unemployed and looking for a job?: No Are you interested in more education?: No THRIVE Score: 0 AUDIT C Alcohol Use Questionnaire (AUDIT-C) 1. How often do you have a drink containing alcohol?: Never Total Score: 0 CLAU-7 AMB Questionnaire CLAU-7 Date CLAU - 7 assessed: 04/17/23 Feeling nervous, anxious, or on edge: 0 = Not at all Not being able to stop or control worryin = Not at all Worrying too much about different things: 0 = Not at all Trouble relaxin = Not at all Being so restless that it is hard to sit still: 0 = Not at all Becoming easily annoyed or irritable: 0 = Not at all Feeling afraid as if something awful might happen: 0 = Not at all Total CLAU-7 score (0-4 normal; 5-9 mild; 10-14 moderate; 15-21 severe): 0 Source: Developed by Drs. Rashid Woodward, Carmenza Hedz, Landry Jackson and colleagues, with an educational irlanda from [email or web address]. CLAU-7 Assessment Billing CLAU-7 Assessment Tool: CLAU-7 Assessment 28074 Review of Systems Const All systems reviewed & are unremarkable except as noted in HPI and below Denies body aches, Denies fatigue, Denies fever(s), Denies headache(s) and Denies weakness Eyes Denies change in vision ENT Reports as per HPI, Denies vertigo, Denies dizziness, Denies ear discharge, Denies headache(s), Denies sinus pain and Denies sinus pressure Card Denies chest pain, Denies lightheadedness, Denies palpitations and Denies dyspnea Resp Reports as per HPI, Denies dyspnea and Denies wheezing GI Denies abdominal pain, Denies change in bowel habits and Denies heartburn Neuro Denies vertigo, Denies dizziness, Denies headache(s) and Denies weakness Psych Reports no additional complaints Endo Denies fatigue, Denies polydipsia, Denies polyuria and Denies palpitations Viral/Lymph Denies easy bruising Aller/Immun Denies seasonal rhinorrhea and Denies wheezing Physical exam (Primary Care) Vital Signs: Last Vital Signs Pulse 84 04/17/23 08:57 BP 120/70 04/17/23 08:57 Pulse Ox 96 04/17/23 08:57 Oxygen Delivery Method Room Air 04/17/23 08:57 BMI result Body Mass Index 32.6 Tobacco/Smoking Status: Tobacco use Status Tobacco use date assessed 04/17/23 04/17/23 08:59 Patient Tobacco Use Status Former Tobacco user 04/17/23 08:59 e-Cigarette/Vaping Use Never Used 04/17/23 08:59 Depression Screening Interpretation: Negative Thrive Assessment: Date of Thrive Assessment Date Thrive assessed 10/27/22 04/17/23 08:59 Const General: healthy appearing, comfortable, no acute distress and Physically active Nutritional Appearance: obese Orientation/consciousness: patient oriented x3 HENMT Head: Yes normocephalic and Yes atraumatic Ears: hearing grossly normal bilaterally, external ears normal, TM's normal bilaterally and EAC's normal General nose exam: Normal external nose present Face and sinus: Yes sinuses nontender and Yes face symmetric Mouth: Normal oral and palatal mucosa present, oropharynx normal and moist mucous membranes Eyes General: appearance normal, both eyes and all related structures Neck Neck: Yes full ROM, Yes no lymphadenopathy and Yes supple Thyroid: Thyroid normal Resp Effort & Inspection: normal respiratory effort, able to speak in complete sentences and Actively coughing Quality: productive Auscultation: clear to auscultation bilaterally Cardio Rate: regular rate Rhythm: regular rhythm Heart sounds: S1 normal heart sound present and S2 normal heart sound present GI Palpation (GI): Soft to palpation, nontender, no guarding and no masses Auscultation: normal bowel sounds Neuro General: patient oriented x3, gait normal, tone normal, moves all extremities, Normal light touch and pain sensation and no focal motor deficits Gait exam (Neuro): Normal gait present Results Reviewed Results Reviewed: RUN: 04/17/23 0926 PAGE 1 [facility] [address] [place] [id number] Shingler: Efrain Watters M.D. Specimen Inquiry Name: Leandra Galvez Age/Sex: 72/F : 1950 Unit#: [id number] Attend Dr: Debbi Marquez MD Re02/19/23 Status: DEP REF Location: [facility] Disch: SPEC : [id number] RAFA: 02/19/23 STATUS: COMP REQ : [id number] RECD: 02/19/[address]: Debbi Marquez MD COMP: 02/19/23 ENTERED: 02/19/[address] [facility] [address]: ORDERED: Met Prof Fast, AST, ALT, Lipid Panel, Vitamin D 25-OH Test Result Flag Reference Sodium 140 135-145 mmol/L Potassium 3.6 3.3-5.1 mmol/L CL 106 96-108 mmol/L CO2 26 22-29 mmol/L Gap 12 12-20 BUN 12 9-16 mg/dL Creat 0.76 0.5-1.4 mg/dL EGFR > 60 NOTE: For -[place]une[place] individuals, multiply the result by 1.210. Chronic Kidney Disease: Estimated GFR < 60 mL/min/1.73m2 Severe Kidney Disease: Estimated GFR < 15 mL/min/1.73m2 FBS 84 60-99 mg/dL CA 9.3 # 8.4-10.2 mg/dL AST (GOT) 18 5-31 U/L ALT (GPT) 13 0-31 U/L Triglyceride 108 <150 mg/dL Desirable Triglyceride: less than 150 mg/dL Borderline High Triglyceride 150-199 mg/dL High Triglyceride: 200-499 mg/dL Very High Triglyceride: greater than or equal to 5OO mg/dL Cholesterol 207 H <200 mg/dL Desirable Cholesterol: less than 200 mg/dL Borderline High Cholesterol: 200-239 mg/dL High Cholesterol: greater than 239 mg/dL LDL Calculated 100 H <100 mg/dL Desirable LDL: less than 100 mg/dL Near Optimal/Above Optimal LDL: 110-129 mg/dL Borderline High LDL: 130-159 mg/dL High LDL: 160-189 mg/dL Very High LDL: greater than or equal to 190 mg/dL HDL 86 >40 mg/dL Desirable HDL: greater than 40 mg/dL Note: This HDL assay may give artificially low results in patients with liver disease. Vit D 25-OH Tot 67.2 >30 ng/mL Health Based Reference Values* < 20 ng/mL Deficient 20-30 ng/mL Insufficient > 30 ng/mL Sufficient Assessment and Plan Assessment & Plan (1) Essential hypertension: Code(s): I10 - Essential (primary) hypertension Plan: Blood pressure at goal of less than 130/80. Continue with hydrochlorothiazide 12.5 mg daily. Reinforced importance of following a low sodium diet, getting regular exercise, and lowering stress levels. (2) Dyslipidemia: Code(s): E78.5 - Hyperlipidemia, unspecified Plan: Fasting lipid panel within normal limits, continue with atorvastatin 20 mg daily in addition to adhering to healthy eating habits (3) Anemia: Code(s): D64.9 - Anemia, unspecified Qualifiers: Anemia type: unspecified type Qualified Code(s): D64.9 - Anemia, unspecified Plan: Ordered CBC and iron profile levels to be checked. (4) Acute bronchitis: Code(s): J20.9 - Acute bronchitis, unspecified Qualifiers: Bronchitis organism: unspecified organism Qualified Code(s): J20.9 - Acute bronchitis, unspecified Plan: Prescribed azithromycin dose pack, to take as directed, continue with NyQuil as needed for cough. Return to clinic if no improvement of symptoms after 5 day Medications: New azithromycin For 250 mg dose pack: take 500 mg today (day 1), then 250 mg for 4 days (days 2-5) PO 6 tabs 0RF Coding Level of Care Code Est Pt Level 4 (60604) Diagnoses Essential hypertension I10 Dyslipidemia E78.5 Anemia, unspecified type D64.9 Anemia type: unspecified type Acute bronchitis, unspecified organism J20.9 Bronchitis organism: unspecified organism Additional Codes CLAU-7 Assessment Billing - CLAU-7 Assessment Tool: CLAU-7 Assessment 89206 ([id number])
== END 2023-04-17 13:18 | disposition home or self-care (01) ==
PROVIDERS: PCP Internal Medicine; Visit Provider Internal Medicine
DX: I10 Essential (primary) hypertension (principal); E78.5 Hyperlipidemia, unspecified; D64.9 Anemia, unspecified; J20.9 Acute bronchitis, unspecified
CPT/HCPCS: 99214

== ENCOUNTER 2023-04-17 09:49 | Outpatient (REF) | payer MEDICARE, OTHER, SELFPAY ==
[2023-04-17 13:32] LABS: MANUAL DIFF FLAG NO
[2023-04-17 13:42] LABS: Basophils Absolute Auto 0.1 X10*3/uL (0.0-0.2); Basophils Percent Auto 0.7 % (0-2); Eosinophils Absolute Auto 0.2 X10*3/uL (0.0-0.4); Eosinophils Percent Auto 1.8 % (0-4); Hematocrit 37.7 % (37.0-47.0); Hemoglobin 12.5 g/dl (12.0-16.0); Imm Gran Abs Auto 0.03 X10*3/uL (0.00-0.03); Imm Gran Pct Auto 0.4 % (0.0-0.4); Lymphocytes Absolute Auto 3.1 X10*3/uL (1.2-4.9); Mean Corpuscular HGB Conc 33.2 g/dl (31.0-35.0); Mean Corpuscular Hemoglobin 30.6 pg (27.0-33.0); Mean Corpuscular Volume 92.2 fL (80.0-98.0); Mean Platelet Volume 11.8 fL (9.4-12.3); Monocytes Absolute Auto 0.6 X10*3/uL (0.1-1.2); Monocytes Percent Auto 7.5 % (2-11); Neutrophils Absolute Auto 4.6 x10*3/uL (2.0-8.3); Neutrophils Percent Auto 53.6 % (45-73); Platelet Count 372 X10*3/uL (160-400); Red Blood Count 4.09 X10*6/uL (4.20-5.50); Red Cell Distribution Width 12.7 % (11.0-16.0); White Blood Count 8.5 X10*3/uL (4.8-10.8)
[2023-04-17 13:49] LABS: Iron 115 mcg/dL (30-160); Percent Iron Saturation 45 % (15-50); Total Iron Binding Capacity 258 mcg/dL (228-428); Unsaturated Iron Binding 143 ug/dL
== END 2023-04-17 09:50 | disposition home or self-care (01) ==
LOC: HO.HMGCLDS 09:49
PROVIDERS: PCP Internal Medicine; Visit Provider Internal Medicine
DX: I10 Essential (primary) hypertension (principal); E78.5 Hyperlipidemia, unspecified; E66.9 Obesity, unspecified; Z78.0 Asymptomatic menopausal state; Z86.2 Personal history of diseases of the blood and blood-forming organs and certain disorders involving the immune mechanism
CPT/HCPCS: 36415; 83540; 85025

== ENCOUNTER 2023-04-18 09:17 | Outpatient (AMB) | payer MEDICARE, OTHER, SELFPAY ==
[2023-04-18 09:30] VITALS: BP 133/72; PULSE 93; RESP 16; O2SAT 99; BMI 32.6
--- NOTE | 2023-04-18 09:30 | MHC.OFFVIS ---
Intake Vital Signs 04/18/23 09:30 Height 5 ft 2 in Weight 178 lb BMI 32.6 BP 133/72 Blood Pressure Location Lt brachial Position Sitting Respiration 16 Pulse 93 Pulse Source Pulse Oximeter Pulse Oximetry (%) 99 Oxygen Delivery Method Room Air Intake Visit Reasons: Medication Count - LVM Allergies buprenorphine [Belbuca] Allergy (Unknown, Verified 04/18/23 09:29) stomach upset NSAIDS (Non-Steroidal Anti-Inflamma Allergy (Unknown, Verified 04/18/23 09:29) Stomach Upset HPI HPI Comments History of Present Illness Details Leandra is a very pleasant 72-year-old female who presents to the office for follow up chronic back pain and chronic opioid therapy management. Patient is prescribed oxycodone 5 mg take 1 tablet daily as needed. Patient arrived today with the expectation of having 13 pills, she presented 19 pills which were counted in the presence of two staff members and returned to the patient in the original prescription bottle. This demonstrates responsible attitude toward patient's opioid medications. Pain is reported today as 4/10 and last dose of pain medication was taken yesterday morning. Patient denies any recent changes or exacerbations of chronic back pain and states she is able to engage in activities of daily living with minimal interruption due to chronic pain. Patient denies side effects including somnolence, constipation, itching, dyspnea, rash, dizziness or weakness. Just returned from trip to [facility], started to feel run down with cough 2 days before returning home. Had visit with pcp yesterday, given zpak for bronchitis. Previously: Patient had fifth SUSSY 28479, reports still receiving good effect and does not wish to schedule repeat at this time. She has PHQ score is equal to 1, Her opioid addiction risk score is equal to 2 Total score is equal to 3 she is low risk for opioid addiction. [facility] Medical History Anemia Obesity (BMI 30.0-34.9) Prolapse of anterior vaginal wall Essential hypertension Osteopenia of multiple sites Dyslipidemia Irritable bowel syndrome Chronic pain syndrome Bilateral primary osteoarthritis of knee Spondylosis without myelopathy or radiculopathy, lumbar region Surgical History History of tonsillectomy History of hysterectomy History of carpal tunnel surgery History of cholecystectomy History of laparoscopic appendectomy History of lumbar laminectomy History of reduction mammoplasty H/O abdominoplasty Hx of bariatric surgery Family History Mother Diabetes mellitus Essential hypertension Cardiovascular disease Daughter Wernicke-Korsakoff syndrome (alcoholic) Social History Household Members: None Household Members Other:: 0 Housing: House Do you presently have visiting nurse or other home services: No Alcohol intake: never Patient Tobacco Use Status: Former Tobacco user e-Cigarette/Vaping Use: Never Used Advance Directives Date on File: 12/22/21 service: No Current occupational status: retired Cognitive needs: No Hearing needs: No Vision needs: No Review of Systems Const All systems reviewed & are unremarkable except as noted in HPI and below Physical Exam Vital Signs: Last Vital Signs Pulse 93 04/18/23 09:30 Resp 16 04/18/23 09:30 BP 133/72 04/18/23 09:30 Pulse Ox 99 04/18/23 09:30 Oxygen Delivery Method Room Air 04/18/23 09:30 BMI result Body Mass Index 32.6 General: awake, alert, oriented. Answers questions appropriately. Fully engaged in examination. Skin: warm, dry, intact without visible rashes or lesions. HEENT: Normocephalic. Conjuntivae clear without exudate. Sclera non-icteric. Hearing intact. Cardiac: External chest normal in appearance. Respiratory: Cough without audible wheezing or stridor. Abdomen: without gross distension. MS: No obvious swelling or deformities. Able to transition from sit to stand unassisted. Ambulates with bilaterally normal heel strike and toe off Neurological: Oriented to person, place, time and situation. Thought process intact. No gait abnormalities appreciated. Psychiatric: Appropriate mood and affect. Good judgment and insight. Assessment & Plan Assessment & Plan (1) Spondylosis without myelopathy or radiculopathy, lumbar region: Code(s): M47.816 - Spondylosis without myelopathy or radiculopathy, lumbar region (2) Bilateral primary osteoarthritis of knee: Code(s): M17.0 - Bilateral primary osteoarthritis of knee (3) Chronic pain syndrome: Code(s): G89.4 - Chronic pain syndrome (4) Disc degeneration, lumbar: Code(s): M51.36 - Other intervertebral disc degeneration, lumbar region (5) Trochanteric bursitis, left hip: Code(s): M70.62 - Trochanteric bursitis, left hip Plan [place] was reviewed and without concerns. No obvious signs of diversion, abuse or misuse of the opioid medications. Will send in prescription for oxycodone 5mg po daily with an advanced date of 05/01/23. Continue with caudal SUSSY every 3 months as needed. Will let the office know when she is ready to repeat procedure. Patient to follow-up in the office in 1 month, sooner if needed. All questions and concerns have been answered and patient agrees with the plan. Medications: Refilled oxycodone Partial Fill upon patient request. Patient is recommended to take a half pill of oxycodone once or twice a day p.r.n. pain. 5 mg PO DAILY 30 days PRN 30 tabs 0RF pain Coding Level of Care Code Est Pt Level 4 (56680) Diagnoses Spondylosis without myelopathy or radiculopathy, lumbar region M47.816 Bilateral primary osteoarthritis of knee M17.0 Chronic pain syndrome G89.4 Disc degeneration, lumbar M51.36 Trochanteric bursitis, left hip M70.62
== END 2023-04-18 09:51 | disposition home or self-care (01) ==
PROVIDERS: PCP Internal Medicine; Visit Provider Registered Nurse Emergency
DX: G89.4 Chronic pain syndrome (principal); M47.816 Spondylosis without myelopathy or radiculopathy, lumbar region; M17.0 Bilateral primary osteoarthritis of knee; Z79.891 Long term (current) use of opiate analgesic; M51.36 Other intervertebral disc degeneration, lumbar region; M70.62 Trochanteric bursitis, left hip
CPT/HCPCS: 99214

== ENCOUNTER → 2023-04-18 09:17 | Outpatient (BNVA) | payer MEDICARE, OTHER, SELFPAY | PROVIDERS: PCP Internal Medicine; Visit Provider Registered Nurse Emergency | DX: G89.4 Chronic pain syndrome (principal); M47.816 Spondylosis without myelopathy or radiculopathy, lumbar region; M17.0 Bilateral primary osteoarthritis of knee; M51.36 Other intervertebral disc degeneration, lumbar region; M70.62 Trochanteric bursitis, left hip; Z79.891 Long term (current) use of opiate analgesic | CPT/HCPCS: 99212 ==

== ENCOUNTER 2023-05-18 08:57 | Outpatient (AMB) | payer MEDICARE, OTHER, SELFPAY ==
--- NOTE | 2023-05-18 09:05 | MHC.OFFVIS ---
Intake Vital Signs 05/18/23 09:11 Height 5 ft 2 in Weight 178 lb BMI 32.6 BP 138/79 Blood Pressure Location Lt brachial Position Sitting Pulse 98 Pulse Source Pulse Oximeter Pulse Oximetry (%) 100 Oxygen Delivery Method Room Air Intake Visit Reasons: PILL COUNT Intake Note: Leandra comes in today for a pill count to oxycodone, patient should have 13 tablets and presents with 16 tables which she last took yesterday 05/17/23 at 12pm. Pain today 5/10. Signal Operator Linguist Required: No Accompanied by: Self / Same As Patient Allergies buprenorphine [Belbuca] Allergy (Unknown, Verified 05/18/23 09:12) stomach upset NSAIDS (Non-Steroidal Anti-Inflamma Allergy (Unknown, Verified 05/18/23 09:12) Stomach Upset HPI HPI Comments History of Present Illness Details Patient is a pleasant 72 years old female who presents today for pill count. She reports chronic lower back pain, shoulder and left foot pain which she is adequatelly managing with oxycodone 5 mg once daily as needed without any side effects. Patient is supposed to have #13 pills, in her possession has #16 pills. This demonstrates a responsible attitude in regards to the medication regimen. Patient reports current medication regime allows her to be more functional and less symptomatic. Denies any fever, chest pain, shortness of breaths, dizziness, weight loss, constipation, nausea, sedation, or urinary retention. [facility]: Leandra is a very pleasant 72-year-old female who presents to the office for follow up chronic back pain and chronic opioid therapy management. Patient is prescribed oxycodone 5 mg take 1 tablet daily as needed. Patient arrived today with the expectation of having 13 pills, she presented 19 pills which were counted in the presence of two staff members and returned to the patient in the original prescription bottle. This demonstrates responsible attitude toward patient's opioid medications. Pain is reported today as 4/10 and last dose of pain medication was taken yesterday morning. Patient denies any recent changes or exacerbations of chronic back pain and states she is able to engage in activities of daily living with minimal interruption due to chronic pain. Patient denies side effects including somnolence, constipation, itching, dyspnea, rash, dizziness or weakness. Just returned from trip to [facility], started to feel run down with cough 2 days before returning home. Had visit with pcp yesterday, given zpak for bronchitis. Previously: Patient had fifth SUSSY , reports still receiving good effect and does not wish to schedule repeat at this time. She has PHQ score is equal to 1, Her opioid addiction risk score is equal to 2 Total score is equal to 3 she is low risk for opioid addiction. [facility] Medical History Anemia Obesity (BMI 30.0-34.9) Prolapse of anterior vaginal wall Essential hypertension Osteopenia of multiple sites Dyslipidemia Irritable bowel syndrome Chronic pain syndrome Bilateral primary osteoarthritis of knee Spondylosis without myelopathy or radiculopathy, lumbar region Surgical History History of tonsillectomy History of hysterectomy History of carpal tunnel surgery History of cholecystectomy History of laparoscopic appendectomy History of lumbar laminectomy History of reduction mammoplasty H/O abdominoplasty Hx of bariatric surgery Family History Mother Diabetes mellitus Essential hypertension Cardiovascular disease Daughter Wernicke-Korsakoff syndrome (alcoholic) Social History Household Members: None Household Members Other:: 0 Housing: House Do you presently have visiting nurse or other home services: No Alcohol intake: never Patient Tobacco Use Status: Former Tobacco user e-Cigarette/Vaping Use: Never Used Advance Directives Date on File: 12/22/21 service: No Current occupational status: retired Cognitive needs: No Hearing needs: No Vision needs: No Review of Systems Const All systems reviewed & are unremarkable except as noted in HPI and below Physical Exam Vital Signs: Last Vital Signs Pulse 98 05/18/23 09:11 BP 138/79 05/18/23 09:11 Pulse Ox 100 05/18/23 09:11 Oxygen Delivery Method Room Air 05/18/23 09:11 BMI result Body Mass Index 32.6 General: Appears afebrile. Alert and oriented. Mood and affect appropriate. Follows and participates in conversation appropriately. Respiratory effort is unlabored. No cough. No nasal discharge. Able to transition from sit to stand unassisted. Ambulates with bilaterally normal heel strike and toe off. Psych Appearance: grossly normal and well kempt Mental Status: mental status grossly normal Speech and movement: Normal speech and movement present and Clear speech present Affect: normal affect Attitude: cooperative Thought process: Normal thought process present Thought content: Normal thought content present, suicidality (none), no hallucinations and No Depressive thoughts present Insight: Good insight present (Psych) Judgement: Good judgement present (Psych) Results Reviewed Results Reviewed: CT/CT abdomen pelvis w IV 10/26/22 OSSEOUS STRUCTURES: No acute or suspicious osseous abnormality. Degenerative changes throughout the spine. Assessment & Plan Assessment & Plan (1) Bilateral primary osteoarthritis of knee: Code(s): M17.0 - Bilateral primary osteoarthritis of knee (2) Chronic pain syndrome: Code(s): G89.4 - Chronic pain syndrome (3) Disc degeneration, lumbar: Code(s): M51.36 - Other intervertebral disc degeneration, lumbar region (4) Postlaminectomy syndrome of lumbar region: Code(s): M96.1 - Postlaminectomy syndrome, not elsewhere classified (5) Opioid contract exists: Code(s): Z79.891 - [facility] (current) use of opiate analgesic Plan Patient has shown accountability for her medication regimen and the pill count was accurate. There is no evidence of misuse, abuse or diversion at this time. MassPat reviewed. Script sent for oxycodone 5mg po daily with an advanced date of 05/29/23. All questions and concerns have been answered and patient agrees with the plan. Patient to follow-up in the office in 1 month, sooner if needed. Medications: Refilled oxycodone Partial Fill upon patient request. Patient is recommended to take a half pill of oxycodone once or twice a day p.r.n. pain. 5 mg PO DAILY PRN 30 tabs 0RF pain 30 days M17.0 - Bilateral primary osteoarthritis of knee, M96.1 - Postlaminectomy syndrome, not elsewhere classified, Z79.891 - terminal operator (current) use of opiate analgesic Coding Level of Care Code Est Pt Level 4 (19635) Diagnoses Bilateral primary osteoarthritis of knee M17.0 Chronic pain syndrome G89.4 Disc degeneration, lumbar M51.36 Postlaminectomy syndrome of lumbar region M96.1 Opioid contract exists Z79.891
[2023-05-18 09:11] VITALS: BP 138/79; PULSE 98; O2SAT 100; BMI 32.6
== END 2023-05-18 09:24 | disposition home or self-care (01) ==
PROVIDERS: PCP Internal Medicine; Visit Provider Nurse Practitioner Family
DX: G89.4 Chronic pain syndrome (principal); M17.0 Bilateral primary osteoarthritis of knee; M51.36 Other intervertebral disc degeneration, lumbar region; Z79.891 Long term (current) use of opiate analgesic; M96.1 Postlaminectomy syndrome, not elsewhere classified
CPT/HCPCS: 99214

== ENCOUNTER → 2023-05-18 08:57 | Outpatient (BNVA) | payer MEDICARE, OTHER, SELFPAY | PROVIDERS: PCP Internal Medicine; Visit Provider Nurse Practitioner Family | DX: Z51.81 Encounter for therapeutic drug level monitoring (principal); M17.0 Bilateral primary osteoarthritis of knee; M51.36 Other intervertebral disc degeneration, lumbar region; M96.1 Postlaminectomy syndrome, not elsewhere classified; G89.4 Chronic pain syndrome; Z79.891 Long term (current) use of opiate analgesic | CPT/HCPCS: 99212 ==

== ENCOUNTER 2023-06-15 08:51 | Outpatient (AMB) | payer MEDICARE, OTHER, SELFPAY ==
[2023-06-15 09:04] VITALS: BP 134/67; PULSE 96; RESP 18; O2SAT 99; BMI 32.6
--- NOTE | 2023-06-15 09:04 | A.OFFVIS_ITS ---
Intake Vital Signs 06/15/23 09:04 Height 5 ft 2 in Weight 178 lb BMI 32.6 BP 134/67 Blood Pressure Location Lt brachial Position Sitting Respiration 18 Pulse 96 Pulse Source Pulse Oximeter Pulse Oximetry (%) 99 Oxygen Delivery Method Room Air Intake Visit Reasons: PILL COUNT Allergies buprenorphine [Belbuca] Allergy (Unknown, Verified 06/15/23 09:04) stomach upset NSAIDS (Non-Steroidal Anti-Inflamma Allergy (Unknown, Verified 06/15/23 09:04) Stomach Upset HPI HPI Comments History of Present Illness Details Leandra is a very pleasant 72-year-old female who presents to the office for follow up chronic pain and chronic opioid therapy management. Patient is prescribed oxycodone 5 mg tablets, take 1 tablet daily as needed. Patient arrived today with the expectation of having 15 pills, she presented 24 pills which were counted in the presence of two staff members and returned to the patient in the original prescription bottle. This demonstrates responsible attitude toward patient's opioid medications. Pain is reported today as 5/10 and last dose of pain medication was taken 2 days ago. Patient denies any recent changes or exacerbations of chronic pain; she is able to engage in activities of daily living with minimal interruption due to chronic pain. Patient denies side effects including somnolence, constipation, itching, dyspnea, rash, dizziness or weakness. Previously: Patient had fifth SUSSY 3/[id number], reports still receiving good effect and does not wish to schedule repeat at this time. She has PHQ score is equal to 1, Her opioid addiction risk score is equal to 2 Total score is equal to 3 she is low risk for opioid addiction. [facility] Medical History Anemia Obesity (BMI 30.0-34.9) Prolapse of anterior vaginal wall Essential hypertension Osteopenia of multiple sites Dyslipidemia Irritable bowel syndrome Chronic pain syndrome Bilateral primary osteoarthritis of knee Spondylosis without myelopathy or radiculopathy, lumbar region Surgical History History of tonsillectomy History of hysterectomy History of carpal tunnel surgery History of cholecystectomy History of laparoscopic appendectomy History of lumbar laminectomy History of reduction mammoplasty H/O abdominoplasty Hx of bariatric surgery Family History Mother Diabetes mellitus Essential hypertension Cardiovascular disease Daughter Wernicke-Korsakoff syndrome (alcoholic) Social History Household Members: None Household Members Other:: 0 Housing: House Do you presently have visiting nurse or other home services: No Alcohol intake: never Patient Tobacco Use Status: Former Tobacco user e-Cigarette/Vaping Use: Never Used Advance Directives Date on File: 12/22/21 service: No Current occupational status: retired Cognitive needs: No Hearing needs: No Vision needs: No Review of Systems Const All systems reviewed & are unremarkable except as noted in HPI and below Physical Exam Vital Signs: Last Vital Signs Pulse 96 06/15/23 09:04 Resp 18 06/15/23 09:04 BP 134/67 06/15/23 09:04 Pulse Ox 99 06/15/23 09:04 Oxygen Delivery Method Room Air 06/15/23 09:04 BMI result Body Mass Index 32.6 General: awake, alert, oriented. Answers questions appropriately. Fully engaged in examination. Skin: warm, dry, intact without visible rashes or lesions. HEENT: Normocephalic. Conjuntivae clear without exudate. Sclera non-icteric. Hearing intact. Cardiac: External chest normal in appearance. Respiratory: Cough without audible wheezing or stridor. Abdomen: without gross distension. MS: No obvious swelling or deformities. Able to transition from sit to stand unassisted. Ambulates with bilaterally normal heel strike and toe off Neurological: Oriented to person, place, time and situation. Thought process intact. No gait abnormalities appreciated. Psychiatric: Appropriate mood and affect. Good judgment and insight. Results Reviewed Results Reviewed: CT/CT abdomen pelvis w IV 10/26/22 OSSEOUS STRUCTURES: No acute or suspicious osseous abnormality. Degenerative changes throughout the spine. Assessment & Plan Assessment & Plan (1) Spondylosis without myelopathy or radiculopathy, lumbar region: Code(s): M47.816 - Spondylosis without myelopathy or radiculopathy, lumbar region (2) Bilateral primary osteoarthritis of knee: Code(s): M17.0 - Bilateral primary osteoarthritis of knee (3) Chronic pain syndrome: Code(s): G89.4 - Chronic pain syndrome (4) Disc degeneration, lumbar: Code(s): M51.36 - Other intervertebral disc degeneration, lumbar region (5) Trochanteric bursitis, left hip: Code(s): M70.62 - Trochanteric bursitis, left hip Plan Masspat was reviewed and without concerns. No obvious signs of diversion, abuse or misuse of the opioid medications. Will send in prescription for oxycodone 5mg po daily with an advanced date of 07/06/2023. Patient to follow-up in the office in 1 month, sooner if needed. All questions and concerns have been answered and patient agrees with the plan. Medications: Refilled oxycodone Partial Fill upon patient request. Patient is recommended to take a half pill of oxycodone once or twice a day p.r.n. pain. 5 mg PO DAILY PRN 30 tabs 0RF pain 30 days M17.0 - Bilateral primary osteoarthritis of knee, M96.1 - Postlaminectomy syndrome, not elsewhere classified, Z79.891 - joint terminal attack controller (current) use of opiate analgesic Coding Level of Care Code Est Pt Level 4 (38964) Diagnoses Spondylosis without myelopathy or radiculopathy, lumbar region M47.816 Bilateral primary osteoarthritis of knee M17.0 Chronic pain syndrome G89.4 Disc degeneration, lumbar M51.36 Trochanteric bursitis, left hip M70.62
== END 2023-06-15 09:16 | disposition home or self-care (01) ==
PROVIDERS: PCP Internal Medicine; Visit Provider Registered Nurse Emergency
DX: G89.4 Chronic pain syndrome (principal); M47.816 Spondylosis without myelopathy or radiculopathy, lumbar region; M17.0 Bilateral primary osteoarthritis of knee; Z79.891 Long term (current) use of opiate analgesic; M51.36 Other intervertebral disc degeneration, lumbar region; M70.62 Trochanteric bursitis, left hip
CPT/HCPCS: 99214

== ENCOUNTER → 2023-06-15 08:51 | Outpatient (BNVA) | payer MEDICARE, OTHER, SELFPAY | PROVIDERS: PCP Internal Medicine; Visit Provider Registered Nurse Emergency | DX: M47.816 Spondylosis without myelopathy or radiculopathy, lumbar region (principal); M17.0 Bilateral primary osteoarthritis of knee; G89.4 Chronic pain syndrome; M51.36 Other intervertebral disc degeneration, lumbar region; M70.62 Trochanteric bursitis, left hip; Z51.81 Encounter for therapeutic drug level monitoring; Z79.891 Long term (current) use of opiate analgesic | CPT/HCPCS: 99212 ==

== ENCOUNTER 2023-07-13 08:45 | Outpatient (AMB) | payer MEDICARE, OTHER, SELFPAY ==
--- NOTE | 2023-07-13 08:46 | MHC.OFFVIS ---
Vital Signs 07/13/23 08:56 Height 5 ft 2 in Weight 178 lb BMI 32.6 BP 130/70 Blood Pressure Location Lt brachial Position Sitting Pulse 82 Pulse Source Pulse Oximeter Pulse Oximetry (%) 97 Oxygen Delivery Method Room Air Intake Visit Reasons: Medication Count Intake Note: Leandra comes in today for a pill count to oxycodone, patient should have 23 tablets and presents with 23 tablets which she last too last night 07/12/23 at 4pm. Pain today 8 Supervisor Soldering Required: No Accompanied by: Self / Same As Patient Allergies buprenorphine [Belbuca] Allergy (Unknown, Verified 07/13/23 08:56) stomach upset NSAIDS (Non-Steroidal Anti-Inflamma Allergy (Unknown, Verified 07/13/23 08:56) Stomach Upset HPI Comments Details: Laendra is a very pleasant 72-year-old female who presents to the office today for follow up chronic pain and chronic opioid therapy management. Patient is prescribed oxycodone 5 mg tablets, take 1 tablet daily as needed. Patient arrived today with the expectation of having 23 pills, she presented 23 pills which were counted in the presence of two staff members and returned to the patient in the original prescription bottle. This demonstrates responsible attitude toward patient's opioid medications. Pain is reported today as 8/10 and last dose of pain medication was taken yesterday at 4pm. She denies side effects including somnolence, constipation, itching, dyspnea, rash, dizziness, urinary retention or weakness. Pain increased today as she has been doing a lot of yard work now that the weather has improved. Does report her peripheral neuropathy has started to get more bothersome, at times waking her up and making it hard to sleep. Previously: Patient had fifth SUSSY 05/23/2022, reports still receiving good effect and does not wish to schedule repeat at this time. She has PHQ score is equal to 1, Her opioid addiction risk score is equal to 2 Total score is equal to 3 she is low risk for opioid addiction. [facility] Medical History Anemia Obesity (BMI 30.0-34.9) Prolapse of anterior vaginal wall Essential hypertension Osteopenia of multiple sites Dyslipidemia Irritable bowel syndrome Chronic pain syndrome Bilateral primary osteoarthritis of knee Spondylosis without myelopathy or radiculopathy, lumbar region Surgical History History of tonsillectomy History of hysterectomy History of carpal tunnel surgery History of cholecystectomy History of laparoscopic appendectomy History of lumbar laminectomy History of reduction mammoplasty H/O abdominoplasty Hx of bariatric surgery Family History Mother Diabetes mellitus Essential hypertension Cardiovascular disease Daughter Wernicke-Korsakoff syndrome (alcoholic) Social History Household Members: None Household Members Other:: 0 Housing: House Do you presently have visiting nurse or other home services: No Alcohol intake: never Patient Tobacco Use Status: Former Tobacco user e-Cigarette/Vaping Use: Never Used Advance Directives Date on File: 12/22/21 service: No Current occupational status: retired Cognitive needs: No Hearing needs: No Vision needs: No Review of Systems Const All systems reviewed & are unremarkable except as noted in HPI and below Physical Exam General: awake, alert, oriented. Answers questions appropriately. Fully engaged in examination. Skin: warm, dry, intact without visible rashes or lesions. HEENT: Normocephalic. Conjuntivae clear without exudate. Sclera non-icteric. Hearing intact. Cardiac: External chest normal in appearance. Respiratory: Cough without audible wheezing or stridor. Abdomen: without gross distension. MS: No obvious swelling or deformities. Able to transition from sit to stand unassisted. Ambulates with bilaterally normal heel strike and toe off Neurological: Oriented to person, place, time and situation. Thought process intact. No gait abnormalities appreciated. Psychiatric: Appropriate mood and affect. Good judgment and insight. Results Reviewed Results Reviewed: CT/CT abdomen pelvis w IV 10/26/22 OSSEOUS STRUCTURES: No acute or suspicious osseous abnormality. Degenerative changes throughout the spine. Assessment & Plan Assessment & Plan (1) Spondylosis without myelopathy or radiculopathy, lumbar region: Code(s): M47.816 - Spondylosis without myelopathy or radiculopathy, lumbar region Category: Medical (2) Bilateral primary osteoarthritis of knee: Code(s): M17.0 - Bilateral primary osteoarthritis of knee Category: Medical (3) Chronic pain syndrome: Code(s): G89.4 - Chronic pain syndrome Category: Medical (4) Disc degeneration, lumbar: Code(s): M51.36 - Other intervertebral disc degeneration, lumbar region Category: Medical (5) Trochanteric bursitis, left hip: Code(s): M70.62 - Trochanteric bursitis, left hip Category: Medical [facility]. No obvious signs of diversion, abuse or misuse of the opioid medications. Will send in prescription for oxycodone 5mg po daily with an advanced date of 08/05/2023. Discussed Qutenza topical applications for peripheral neuropathy, patient will consider and let the office know if she wishes to proceed. Patient to follow-up in the office in 1 month, sooner if needed. All questions and concerns have been answered and patient agrees with the plan. Medications: Refilled oxycodone Partial Fill upon patient request. Patient is recommended to take a half pill of oxycodone once or twice a day p.r.n. pain. 5 mg PO DAILY 30 days PRN 30 tabs 0RF pain M17.0 - Bilateral primary osteoarthritis of knee, M96.1 - Postlaminectomy syndrome, not elsewhere classified, Z79.891 - alf (current) use of opiate analgesic Coding Level of Care Code Est Pt Level 4 (88106) Diagnoses Spondylosis without myelopathy or radiculopathy, lumbar region M47.816 Bilateral primary osteoarthritis of knee M17.0 Chronic pain syndrome G89.4 Disc degeneration, lumbar M51.36 Trochanteric bursitis, left hip M70.62
[2023-07-13 08:56] VITALS: BP 130/70; PULSE 82; O2SAT 97; BMI 32.6
== END 2023-07-13 09:10 | disposition home or self-care (01) ==
PROVIDERS: PCP Internal Medicine; Visit Provider Registered Nurse Emergency
DX: G89.4 Chronic pain syndrome (principal); M47.816 Spondylosis without myelopathy or radiculopathy, lumbar region; M17.0 Bilateral primary osteoarthritis of knee; M51.36 Other intervertebral disc degeneration, lumbar region; M70.62 Trochanteric bursitis, left hip
CPT/HCPCS: 99214

== ENCOUNTER → 2023-07-13 08:45 | Outpatient (BNVA) | payer MEDICARE, OTHER, SELFPAY | PROVIDERS: PCP Internal Medicine; Visit Provider Registered Nurse Emergency | DX: M47.816 Spondylosis without myelopathy or radiculopathy, lumbar region (principal); M17.0 Bilateral primary osteoarthritis of knee; G89.4 Chronic pain syndrome; M51.36 Other intervertebral disc degeneration, lumbar region; M70.62 Trochanteric bursitis, left hip; Z79.891 Long term (current) use of opiate analgesic | CPT/HCPCS: 99212 ==

== ENCOUNTER 2023-08-10 08:38 | Outpatient (AMB) | payer MEDICARE, OTHER, SELFPAY ==
[2023-08-10 08:51] VITALS: BP 129/73; PULSE 85; RESP 18; O2SAT 97
--- NOTE | 2023-08-10 08:51 | MHC.OFFVIS ---
Vital Signs 08/10/23 08:51 Height 5 ft 2 in BP 129/73 Blood Pressure Location Lt brachial Position Sitting Respiration 18 Pulse 85 Pulse Source Pulse Oximeter Pulse Oximetry (%) 97 Oxygen Delivery Method Room Air Comment Patient denied scale Intake Visit Reasons: PILL COUNT Allergies buprenorphine [Belbuca] Allergy (Unknown, Verified 08/10/23 08:50) stomach upset NSAIDS (Non-Steroidal Anti-Inflamma Allergy (Unknown, Verified 08/10/23 08:50) Stomach Upset HPI Comments Details: Leandra is a very pleasant 72-year-old female who presents to the office today for follow up chronic pain and chronic opioid therapy management. Patient is prescribed oxycodone 5 mg tablets, take 1 tablet daily as needed. Patient arrived today with the expectation of having 26 pills, she presented 26 pills which were counted in the presence of two staff members and returned to the patient in the original prescription bottle. This demonstrates responsible attitude toward patient's opioid medications. Pain is reported today as 8/10 and last dose of pain medication was taken yesterday at 4pm. She denies side effects including somnolence, constipation, itching, dyspnea, rash, dizziness, urinary retention or weakness. Has been doing a lot of work in the yard, clearing flower beds and weeding so pain has been worse than normal. Previously: Patient had fifth SUSSY 05/23/2022, reports still receiving good effect and does not wish to schedule repeat at this time. She has PHQ score is equal to 1, Her opioid addiction risk score is equal to 2 Total score is equal to 3 she is low risk for opioid addiction. [facility] Medical History Anemia Obesity (BMI 30.0-34.9) Prolapse of anterior vaginal wall Essential hypertension Osteopenia of multiple sites Dyslipidemia Irritable bowel syndrome Chronic pain syndrome Bilateral primary osteoarthritis of knee Spondylosis without myelopathy or radiculopathy, lumbar region Surgical History History of tonsillectomy History of hysterectomy History of carpal tunnel surgery History of cholecystectomy History of laparoscopic appendectomy History of lumbar laminectomy History of reduction mammoplasty H/O abdominoplasty Hx of bariatric surgery Family History Mother Diabetes mellitus Essential hypertension Cardiovascular disease Daughter Wernicke-Korsakoff syndrome (alcoholic) Social History Household Members: None Household Members Other:: 0 Housing: House Do you presently have visiting nurse or other home services: No Alcohol intake: never Patient Tobacco Use Status: Former Tobacco user e-Cigarette/Vaping Use: Never Used Advance Directives Date on File: 12/22/21 service: No Current occupational status: retired Cognitive needs: No Hearing needs: No Vision needs: No Review of Systems Const All systems reviewed & are unremarkable except as noted in HPI and below Physical Exam Vital Signs: Last Vital Signs Pulse 85 08/10/23 08:51 Resp 18 08/10/23 08:51 BP 129/73 08/10/23 08:51 Pulse Ox 97 08/10/23 08:51 Oxygen Delivery Method Room Air 08/10/23 08:51 General: awake, alert, oriented. Answers questions appropriately. Fully engaged in examination. Skin: warm, dry, intact without visible rashes or lesions. HEENT: Normocephalic. Conjuntivae clear without exudate. Sclera non-icteric. Hearing intact. Cardiac: External chest normal in appearance. Respiratory: Cough without audible wheezing or stridor. Abdomen: without gross distension. MS: No obvious swelling or deformities. Able to transition from sit to stand unassisted. Ambulates with bilaterally normal heel strike and toe off Neurological: Oriented to person, place, time and situation. Thought process intact. No gait abnormalities appreciated. Psychiatric: Appropriate mood and affect. Good judgment and insight. Results Reviewed Results Reviewed: CT/CT abdomen pelvis w IV 10/26/22 OSSEOUS STRUCTURES: No acute or suspicious osseous abnormality. Degenerative changes throughout the spine. Assessment & Plan Assessment & Plan (1) Spondylosis without myelopathy or radiculopathy, lumbar region: Code(s): M47.816 - Spondylosis without myelopathy or radiculopathy, lumbar region Category: Medical (2) Bilateral primary osteoarthritis of knee: Code(s): M17.0 - Bilateral primary osteoarthritis of knee Category: Medical (3) Chronic pain syndrome: Code(s): G89.4 - Chronic pain syndrome Category: Medical (4) Disc degeneration, lumbar: Code(s): M51.36 - Other intervertebral disc degeneration, lumbar region Category: Medical (5) Trochanteric bursitis, left hip: Code(s): M70.62 - Trochanteric bursitis, left hip Category: Medical Plan Masspat was reviewed and without concerns. No obvious signs of diversion, abuse or misuse of the opioid medications. Will send in prescription for oxycodone 5mg po daily with an advanced date of 09/05/2023. Patient to follow-up in the office in 1 month, sooner if needed. All questions and concerns have been answered and patient agrees with the plan. Medications: Refilled oxycodone Partial Fill upon patient request. Patient is recommended to take a half pill of oxycodone once or twice a day p.r.n. pain. 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
== END 2023-08-10 09:05 | disposition home or self-care (01) ==
PROVIDERS: PCP Internal Medicine; Visit Provider Registered Nurse Emergency
DX: G89.4 Chronic pain syndrome (principal); M47.816 Spondylosis without myelopathy or radiculopathy, lumbar region; M17.0 Bilateral primary osteoarthritis of knee; M51.36 Other intervertebral disc degeneration, lumbar region; M70.62 Trochanteric bursitis, left hip
CPT/HCPCS: 99214

== ENCOUNTER → 2023-08-10 08:38 | Outpatient (BNVA) | payer MEDICARE, OTHER, SELFPAY | PROVIDERS: PCP Internal Medicine; Visit Provider Registered Nurse Emergency | DX: M17.0 Bilateral primary osteoarthritis of knee (principal); M47.816 Spondylosis without myelopathy or radiculopathy, lumbar region; M51.36 Other intervertebral disc degeneration, lumbar region; G89.4 Chronic pain syndrome; M70.62 Trochanteric bursitis, left hip; Z79.891 Long term (current) use of opiate analgesic; Z51.81 Encounter for therapeutic drug level monitoring | CPT/HCPCS: 99212 ==

== ENCOUNTER 2023-09-07 09:05 | Outpatient (AMB) | payer MEDICARE, OTHER, SELFPAY ==
[2023-09-07 09:25] VITALS: BP 140/76
--- NOTE | 2023-09-07 09:25 | MHC.OFFVIS ---
Vital Signs 09/07/23 09:25 Height 5 ft 2 in BP 140/76 H Blood Pressure Location Rt brachial Position Sitting Intake Visit Reasons: PILL COUNT Allergies buprenorphine [Belbuca] Allergy (Unknown, Verified 09/07/23 09:31) stomach upset NSAIDS (Non-Steroidal Anti-Inflamma Allergy (Unknown, Verified 09/07/23 09:31) Stomach Upset HPI Comments Details: Leandra is a very pleasant 72-year-old female who presents to the office today for follow up chronic pain and chronic opioid therapy management. Patient is prescribed oxycodone 5 mg tablets, take 1 tablet daily as needed. Patient arrived today with the expectation of having 29 pills, she presented 29 pills which were counted in the presence of two staff members and returned to the patient in the original prescription bottle. This demonstrates responsible attitude toward patient's opioid medications. Pain is reported today as 5/10 and last dose of pain medication was taken yesterday at noon. She denies side effects including somnolence, constipation, itching, dyspnea, rash, dizziness, urinary retention or weakness. Previously: Patient had fifth SUSSY 05/23/2022, reports still receiving good effect and does not wish to schedule repeat at this time. She has PHQ score is equal to 1, Her opioid addiction risk score is equal to 2 Total score is equal to 3 she is low risk for opioid addiction. [facility] Medical History Anemia Obesity (BMI 30.0-34.9) Prolapse of anterior vaginal wall Essential hypertension Osteopenia of multiple sites Dyslipidemia Irritable bowel syndrome Chronic pain syndrome Bilateral primary osteoarthritis of knee Spondylosis without myelopathy or radiculopathy, lumbar region Surgical History History of tonsillectomy History of hysterectomy History of carpal tunnel surgery History of cholecystectomy History of laparoscopic appendectomy History of lumbar laminectomy History of reduction mammoplasty H/O abdominoplasty Hx of bariatric surgery Family History Mother Diabetes mellitus Essential hypertension Cardiovascular disease Daughter Wernicke-Korsakoff syndrome (alcoholic) Social History Household Members: None Household Members Other:: 0 Housing: House Do you presently have visiting nurse or other home services: No Alcohol intake: never Patient Tobacco Use Status: Former Tobacco user e-Cigarette/Vaping Use: Never Used Advance Directives Date on File: 12/22/21 service: No Current occupational status: retired Cognitive needs: No Hearing needs: No Vision needs: No Review of Systems Const All systems reviewed & are unremarkable except as noted in HPI and below Physical Exam Vital Signs: Last Vital Signs BP 140/76 H 09/07/23 09:25 General: awake, alert, oriented. Answers questions appropriately. Fully engaged in examination. Skin: warm, dry, intact without visible rashes or lesions. HEENT: Normocephalic. Conjuntivae clear without exudate. Sclera non-icteric. Hearing intact. Cardiac: External chest normal in appearance. Respiratory: Cough without audible wheezing or stridor. Abdomen: without gross distension. MS: No obvious swelling or deformities. Able to transition from sit to stand unassisted. Ambulates with bilaterally normal heel strike and toe off Neurological: Oriented to person, place, time and situation. Thought process intact. No gait abnormalities appreciated. Psychiatric: Appropriate mood and affect. Good judgment and insight. Results Reviewed Results Reviewed: CT/CT abdomen pelvis w IV 10/26/22 OSSEOUS STRUCTURES: No acute or suspicious osseous abnormality. Degenerative changes throughout the spine. Assessment & Plan Assessment & Plan (1) Spondylosis without myelopathy or radiculopathy, lumbar region: Code(s): M47.816 - Spondylosis without myelopathy or radiculopathy, lumbar region Category: Medical (2) Bilateral primary osteoarthritis of knee: Code(s): M17.0 - Bilateral primary osteoarthritis of knee Category: Medical (3) Chronic pain syndrome: Code(s): G89.4 - Chronic pain syndrome Category: Medical (4) Disc degeneration, lumbar: Code(s): M51.36 - Other intervertebral disc degeneration, lumbar region Category: Medical (5) Trochanteric bursitis, left hip: Code(s): M70.62 - Trochanteric bursitis, left hip Category: Medical Plan Masspat was reviewed and without concerns. No obvious signs of diversion, abuse or misuse of the opioid medications. Will send in prescription for oxycodone 5mg po daily with an advanced date of 10/05/2023. Patient to follow-up in the office in 1 month, sooner if needed. All questions and concerns have been answered and patient agrees with the plan. Medications: Refilled oxycodone Partial Fill upon patient request. Patient is recommended to take a half pill of oxycodone once or twice a day p.r.n. pain. 5 mg PO DAILY PRN 30 tabs 0RF pain 30 days M17.0 - Bilateral primary osteoarthritis of knee, M96.1 - Postlaminectomy syndrome, not elsewhere classified, Z79.891 - long-term (current) use of opiate analgesic Coding Level of Care Code Est Pt Level 4 (89103) Diagnoses Spondylosis without myelopathy or radiculopathy, lumbar region M47.816 Bilateral primary osteoarthritis of knee M17.0 Chronic pain syndrome G89.4 Disc degeneration, lumbar M51.36 Trochanteric bursitis, left hip M70.62
== END 2023-09-07 09:57 | disposition home or self-care (01) ==
PROVIDERS: PCP Internal Medicine; Visit Provider Registered Nurse Emergency
DX: G89.4 Chronic pain syndrome (principal); M47.816 Spondylosis without myelopathy or radiculopathy, lumbar region; M17.0 Bilateral primary osteoarthritis of knee; M51.36 Other intervertebral disc degeneration, lumbar region; M70.62 Trochanteric bursitis, left hip
CPT/HCPCS: 99214

== ENCOUNTER → 2023-09-07 09:05 | Outpatient (BNVA) | payer MEDICARE, OTHER, SELFPAY | PROVIDERS: PCP Internal Medicine; Visit Provider Registered Nurse Emergency | DX: Z51.81 Encounter for therapeutic drug level monitoring (principal); F11.20 Opioid dependence, uncomplicated; M47.816 Spondylosis without myelopathy or radiculopathy, lumbar region; M17.0 Bilateral primary osteoarthritis of knee; M51.36 Other intervertebral disc degeneration, lumbar region; M70.62 Trochanteric bursitis, left hip; G89.4 Chronic pain syndrome | CPT/HCPCS: 99212 ==

== ENCOUNTER 2023-10-01 08:15 | Outpatient (AMB) | payer MEDICARE, OTHER, SELFPAY ==
[2023-10-01 08:40] VITALS: BP 104/74; PULSE 71; O2SAT 97; BMI 33.5
--- NOTE | 2023-10-01 08:40 | A.OFFVIS_ITS ---
Intake Vital Signs 10/01/23 08:40 Height 5 ft 2 in Weight 183 lb BMI 33.5 BP 104/74 Blood Pressure Location Lt brachial Position Sitting Pulse 71 Pulse Source Pulse Oximeter Pulse Oximetry (%) 97 Oxygen Delivery Method Room Air Intake Visit Reasons: SWV G0439 Intake Note: Pt is here today for her SWV: Last mammogram 02/12/23, bone density scan 12/18 09/05, colonoscopy 06/29/14 Allergies buprenorphine [Belbuca] Allergy (Unknown, Verified 10/01/23 09:11) stomach upset NSAIDS (Non-Steroidal Anti-Inflamma Allergy (Unknown, Verified 10/01/23 09:11) Stomach Upset Medication List - Last Reconciled 10/07/23 by Debbi Marquez MD atorvastatin 20 mg PO DAILY bisacodyl (Dulcolax (bisacodyl)) 10 mg PO DAILY cholecalciferol (vitamin D3) (Vitamin D3) 50 mcg PO DAILY docusate sodium (Colace) 200 mg PO DAILY estradiol (Estrace) 2 mg PO DAILY hydrochlorothiazide 12.5 mg PO DAILY hyoscyamine sulfate 0.125 mg PO DAILY PRN omeprazole magnesium 20 mg PO DAILY@0630 PRN oxycodone 5 mg PO DAILY PRN 30 days trazodone 100 mg PO BEDTIME HPI SWV G0439 HPI Details SWV ? 72 year old lady presents for her ?substance Annual Wellness Visit. She has hyperlipidemia currently on atorvastatin 20 mg daily, she sees Dr. Stratton for treatment of post laminectomy syndrome of lumbar region, has hypertension currently controlled on hydrochlorothiazide only 12.5 mg daily? she takes omeprazole for intermittent episodes of heartburn. Has osteoarthritis mainly in fingers of both hands and has tried taking diclofenac gel which affords only temporary relief. She is up-to-date with her screening mammogram done 02/09/2023 with benign findings has an appointment already scheduled for this year. Last bone density scan done in 2019 showed normal findings, will order a repeat to be done together with her mammogram later this year. She sees Dr. Palomino for her routine pelvic exam, no longer gets Pap smears. Up-to-date endoscopy done [place] [address] Wilson, due again in 2024. She had a normal fasting lipid screening and fasting blood sugar done 02/19/2023. Up-to-date with her vaccines including COVID vaccine, Shingrix, Tdap pneumonia vaccine and flu shot. ? Medical / Social History Reviewed? Past Medical History ?Yes . ? [place] of Care / Care Team list updated ?Yes . ? Surgical/Hospitalization History ?Yes . ? Current Medications (including OTC and supplements) ?Yes . ? Family History ?Yes . ? Tobacco Control form ?Yes . ? AUDIT-C (Alcohol use) form ?Yes . ? Illicit drug use in Social History ?Yes . ? Current diagnosis of depression? ?No ? Appropriate PHQ2/PHQ9 completed ?Yes . ? Data entered by ?[employer] and reviewed by provider ? Fall Risk ? Fall History? Have you had any falls with injury in the past year? ?No . ? Have you had two or more falls in the past year? ?No . ? Fall Risk Assessment: ?No falls in the past year . ? HRA filled out by the patient, reviewed by Provider and scanned. ?SWV ? Balance? Romberg ?Yes . ? Tandem walk ?Yes . ? Walk and Turn ?Yes . ? Rise from sit to stand ?Yes . ?Vision? Corrective lens ?Yes ? Vision screen ? Up-to-date, she sees Dr. Barry ?Hearing? Whisper test ?pass . ?Written Plan?Completed. See Patient Documents.? [facility] Medical History (Updated 10/01/23 @ 09:34 by Debbi Marquez MD) Osteoarthritis History of osteopenia Obesity (BMI 30.0-34.9) Prolapse of anterior vaginal wall Essential hypertension Dyslipidemia Irritable bowel syndrome Chronic pain syndrome Bilateral primary osteoarthritis of knee Spondylosis without myelopathy or radiculopathy, lumbar region Surgical History History of tonsillectomy History of hysterectomy History of carpal tunnel surgery History of cholecystectomy History of laparoscopic appendectomy History of lumbar laminectomy History of reduction mammoplasty H/O abdominoplasty Hx of bariatric surgery Family History Mother Diabetes mellitus Essential hypertension Cardiovascular disease Daughter Wernicke-Korsakoff syndrome (alcoholic) Social History Household Members: None Household Members Other:: 0 Housing: House Do you presently have visiting nurse or other home services: No Alcohol intake: never Patient Tobacco Use Status: Former Tobacco user e-Cigarette/Vaping Use: Never Used Advance Directives Date on File: 12/22/21 service: No Current occupational status: retired Cognitive needs: No Hearing needs: No Vision needs: No Female Reproductive History Menstrual Date of Mammogram: 02/12/23 Date of last Bone Density Screenin01/12/20 Questionnaire Medicare Wellness Checkup [age] What gender do you identify with?: female During the past 4 weeks, how much have you been bothered by emotional problems such as feeling anxious, depressed, irritable, sad or downhearted, and blue?: not at all During the past 4 weeks, has your physical & emotional health limited your social activities with family, friends, neighbors, or groups?: not at all During the past 4 weeks, how much bodily pain have you generally had?: moderate pain During the past 4 weeks, was someone available to help you if you needed & wanted help?: yes, as much as I wanted During the past 4 weeks, what was the hardest physical activity you could do for at least 2 minutes?: very heavy Can you get to places out of walking distance without help? (For eg., can you travel alone on buses, taxis or drive your car?): Yes Can you go shopping for groceries or clothes without someone's help?: Yes Can you prepare your own meals?: Yes Can you do your housework without help?: Yes Because of any health problems, do you need the help of another person with your personal care needs such as eating, bathing, dressing or getting around the house?: No Can you handle your own money without help?: Yes During the past 4 weeks, how would you rate your health in general?: very good During the past 4 weeks how have things been going for you?: very well; could hardly better Are you having difficulties driving your car?: no Do you always fasten your seat belt when you are in a car?: yes, usually During past 4 weeks, have you been bothered by the following: never: Falling or dizzy when standing up, Sexual problems?, Trouble eating well?, Teeth or denture problems?, Problems using the telephone? and Tiredness or fatigue? Have you fallen 2 or more times in the past year?: No Are you afraid of falling?: No Are you a smoker?: no During the past 4 weeks, how many drinks of wine, beer, or other alcoholic beverages did you have?: no alcohol at all Do you exercise for about 20 minutes 3 or more times a week?: no, I usually do not exercise this much Have you been given information to help with the following?: no: Hazards in your house that might hurt you? and no: Keeping track of your medications? How often do you have trouble taking medicines the way you have been told to take them?: I always take medicine as prescribed How confident are you that you can control & manage most of your health problems?: very confident What is your race?: White Mini Mental State Exam (MMSE) Orientation What is the (year) (season) (date) (day) (month)?: year (2023), season (Summer), date (10/01/2023), day (Sunday) and month (September) Where are we (state) (county) (town or city) (hospital) (floor)?: state ([place]), county ([place]), town or city ([place]) and hospital/clinic ([facility]) Score Score: 9 Activity of Daily Living Bathing - sponge bath, tub bath or shower: receives no assistance (gets in/out by self, if usual bathing means Dressing - getting clothes from closets & drawers, including inner/outer garments & fasteners.: gets clothes & gets completely dressed without help Toileting - going to the 'toilet room' for urine/bowel elimination & cleaning self/arranging clothes: goes to toilet room, cleans self, arranges clothes without help Transfer: moves in & out of bed and chair without help (may use support object) Continence: controls urination/bowel movements completely by self Feeding: feeds self without help Total Score: 0 Information obtained from: patient Using telephone: independent Traveling: independent Shopping: independent Preparing meals: independent Housework: independent Taking medicine: independent Managing money: independent PHQ-9 Over the last 2 weeks, how often have you been bothered by any of the following problems? 1. Little interest or pleasure in doing things: not at all 2. Feeling down, depressed, or hopeless: not at all 3. Trouble falling or staying asleep, or sleeping too much: not at all 4. Feeling tired or having little energy: not at all 5. Poor appetite or overeating: not at all 6. Feeling bad about yourself - or that you are a failure or have let yourself or your family down: not at all 7. Trouble concentrating on things, such as reading the newspaper or watching television: not at all 8. Moving or speaking so slowly that other people could have noticed. Or the opposite - being so fidgety or restless that you have been moving around a lot more than usual: not at all 9. Thoughts that you would be better off or of hurting yourself in some way: not at all Total score: 0 Depression Screening Interpretation: Negative Depression Screening Done: Yes 47632 - PHQ-9 Billing: Yes Source: Developed by Drs. Rashid Woodward, Carmenza Hdez, Landry Jackson and colleagues, with an educational irlanda from [employer]. Physical Exam Vital Signs: Last Vital Signs Pulse 71 10/01/23 08:40 BP 104/74 10/01/23 08:40 Pulse Ox 97 10/01/23 08:40 Oxygen Delivery Method Room Air 10/01/23 08:40 BMI result Body Mass Index 33.5 Assessment & Plan Assessment & Plan (1) Encounter for subsequent annual wellness visit (AWV) in Medicare patient: Code(s): Z00.00 - Encounter for general adult medical examination without abnormal findi ngs Plan: Medical wellness checklist reviewed, discussed with patient and updated. (2) Osteoarthritis: Code(s): M19.90 - Unspecified osteoarthritis, unspecified site Qualifiers: Osteoarthritis location: multiple joints Osteoarthritis type: primary Qualified Code(s): M15.0 - Primary generalized (osteo)arthritis Plan: Takes an occasional oxycodone 5 mg once daily prescribed by pain management clinic. (3) Postlaminectomy syndrome of lumbar region: Code(s): M96.1 - Postlaminectomy syndrome, not elsewhere classified Plan: Followed by pain clinic (4) Essential hypertension: Code(s): I10 - Essential (primary) hypertension Plan: Blood pressure at goal of less than 130/80. Continue with hydrochlorothiazide 12.5 mg once a day in a.m... Reinforced importance of following a low sodium diet, getting regular exercise, and lowering stress levels. (5) Dyslipidemia: Code(s): E78.5 - Hyperlipidemia, unspecified Plan: Currently on atorvastatin 20 mg daily (6) Irritable bowel syndrome: Comment: Followed by Dr. Wilson, symptoms controlled with present treatment Code(s): K58.9 - Irritable bowel syndrome without diarrhea Qualifiers: Irritable bowel syndrome type: unspecified Qualified Code(s): K58.9 - Irritable bowel syndrome without diarrhea Plan: On hyoscyamine 0.125 mg once a day as needed, followed by GI clinic (7) Chronic pain syndrome: Code(s): G89.4 - Chronic pain syndrome Plan: Followed by pain clinic, currently on oxycodone taken once a day as needed for severe pain Orders: Orders XR DEXA axial skeleton 02/15/24 Z78.0 - Asymptomatic menopausal state Quality Reporting (2019) Depression/Bipolar (159/160/161/177) PHQ-9: Total score: 0 Coding Level of Care Code Medicare Subsequent (G0439) Diagnoses Encounter for subsequent annual wellness visit (AWV) in Medicare patient Z00.00 Primary osteoarthritis involving multiple joints M15.0 Osteoarthritis location: multiple joints Osteoarthritis type: primary Postlaminectomy syndrome of lumbar region M96.1 Essential hypertension I10 Dyslipidemia E78.5 Irritable bowel syndrome, unspecified type K58.9 Irritable bowel syndrome type: unspecified Chronic pain syndrome G89.4
== END 2023-10-01 09:30 | disposition home or self-care (01) ==
PROVIDERS: PCP Internal Medicine; Visit Provider Internal Medicine
DX: Z00.00 Encounter for general adult medical examination without abnormal findings (principal); M15.0 Primary generalized (osteo)arthritis; M96.1 Postlaminectomy syndrome, not elsewhere classified; I10 Essential (primary) hypertension; E78.5 Hyperlipidemia, unspecified; K58.9 Irritable bowel syndrome, unspecified; G89.4 Chronic pain syndrome
CPT/HCPCS: G0439

== ENCOUNTER 2023-10-09 06:06 | Outpatient (REF) | payer MEDICARE, OTHER, SELFPAY ==
[2023-10-09 10:27] LABS: Anion Gap 14 (12-20)
[2023-10-09 10:28] LABS: Alanine Aminotransferase 14 U/L (0-31); Aspartate Amino Transferase 23 U/L (5-31); Blood Urea Nitrogen 11 mg/dL (9-16); Calcium 8.8 mg/dL (8.4-10.2); Carbon Dioxide 22 mmol/L (22-29); Chloride 107 mmol/L (96-108); Cholesterol 184 mg/dL (<200); Estimated Glomerular Filt Rate > 60; Glucose Fasting 88 mg/dL (60-99); HDL Cholesterol 80 mg/dL (>40); LDL Cholesterol Calculated 86 mg/dL (<100); Potassium 3.6 mmol/L (3.3-5.1); Sodium 139 mmol/L (135-145); Triglycerides 91 mg/dL (<150)
[2023-10-09 10:51] LABS: Vitamin D 25-OH Total 65.6 ng/mL (>30)
[2023-10-09 11:39] LABS: Erythrocyte Sedimentation Rate 9 MM/HR (0-20)
[2023-10-09 12:00] LABS: Uric Acid 5.2 mg/dL (2.4-5.7)
== END 2023-10-09 06:07 | disposition home or self-care (01) ==
LOC: HO.HMGCLDS 06:06
PROVIDERS: PCP Internal Medicine; Visit Provider Internal Medicine
DX: I10 Essential (primary) hypertension (principal); E78.5 Hyperlipidemia, unspecified; Z78.0 Asymptomatic menopausal state; M25.50 Pain in unspecified joint
CPT/HCPCS: 36415; 80048; 80061; 82306; 84450; 84460; 84550; 85652

== ENCOUNTER → 2023-10-12 09:03 | Outpatient (BNVA) | payer MEDICARE, OTHER, SELFPAY | PROVIDERS: PCP Internal Medicine; Visit Provider Registered Nurse Emergency ==

== ENCOUNTER → 2023-11-08 09:08 | Outpatient (BNVA) | payer MEDICARE, OTHER, SELFPAY | PROVIDERS: PCP Internal Medicine; Visit Provider Registered Nurse Emergency ==

== ENCOUNTER 2023-12-06 08:13 | Outpatient (REF) | payer MEDICARE, OTHER, SELFPAY | END 2023-12-06 08:14 | disposition home or self-care (01) | LOC: HO.LAB 08:13 | PROVIDERS: PCP Internal Medicine; Visit Provider Registered Nurse Emergency | DX: M47.816 Spondylosis without myelopathy or radiculopathy, lumbar region (principal); M17.0 Bilateral primary osteoarthritis of knee; G89.4 Chronic pain syndrome; M51.36 Other intervertebral disc degeneration, lumbar region; M70.62 Trochanteric bursitis, left hip | CPT/HCPCS: 99212 ==

== ENCOUNTER 2023-12-06 08:13 | Outpatient (AMB) | payer MEDICARE, OTHER, SELFPAY ==
[2023-12-06 08:30] VITALS: BP 145/78; PULSE 93; O2SAT 99; BMI 31.1
--- NOTE | 2023-12-06 08:30 | MHC.OFFVIS ---
Vital Signs 12/06/23 08:30 Height 5 ft 2 in Weight 170 lb BMI 31.1 BP 145/78 H Blood Pressure Location Lt brachial Position Sitting Pulse 93 Pulse Source Pulse Oximeter Pulse Oximetry (%) 99 Oxygen Delivery Method Room Air Intake Visit Reasons: PILL COUNT/Random UDS Allergies buprenorphine [Belbuca] Allergy (Unknown, Verified 12/06/23 08:31) stomach upset NSAIDS (Non-Steroidal Anti-Inflamma Allergy (Unknown, Verified 12/06/23 08:31) Stomach Upset Medication List - Last Reconciled 12/06/23 by Maria Esther Joseph amitriptyline 10 mg PO BEDTIME atorvastatin 20 mg PO DAILY bisacodyl (Dulcolax (bisacodyl)) 10 mg PO DAILY cholecalciferol (vitamin D3) (Vitamin D3) 50 mcg PO DAILY docusate sodium (Colace) 200 mg PO DAILY estradiol (Estrace) 2 mg PO DAILY hydrochlorothiazide 12.5 mg PO DAILY hyoscyamine sulfate 0.125 mg PO DAILY PRN omeprazole magnesium 20 mg PO DAILY@0630 PRN oxycodone 5 mg PO DAILY PRN 30 days trazodone 100 mg PO BEDTIME HPI Comments Details: Leandra presents back to the office today for follow up chronic pain and chronic opioid therapy management. Patient is prescribed oxycodone 5 mg tablets, take 1 tablet daily as needed. Patient arrived today with the expectation of having 0 pills, she presented 1 pills which were counted in the presence of two staff members and returned to the patient in the original prescription bottle. This demonstrates responsible attitude toward patient's opioid medications. Pain is reported today as 6/10 and last dose of pain medication was taken yesterday. She denies side effects including somnolence, constipation, itching, dyspnea, rash, dizziness, urinary retention or weakness. Has been taking the amitriptyline at bedtime with good improvement. She is up to 20 mg daily and states occasionally she will wake up with a neuropathy but for the most part is sleeping much better. Lower back pain is more bothersome later in the evening. She has not had any recent imaging and would like repeat x-rays Previously: Patient had fifth SUSSY 05/23/2022, reports still receiving good effect and does not wish to schedule repeat at this time. She has PHQ score is equal to 1, Her opioid addiction risk score is equal to 2 Total score is equal to 3 she is low risk for opioid addiction. [facility] Medical History (Updated 10/01/23 @ 09:34 by Debbi Marquez MD) Osteoarthritis History of osteopenia Obesity (BMI 30.0-34.9) Prolapse of anterior vaginal wall Essential hypertension Dyslipidemia Irritable bowel syndrome Chronic pain syndrome Bilateral primary osteoarthritis of knee Spondylosis without myelopathy or radiculopathy, lumbar region Surgical History History of tonsillectomy History of hysterectomy History of carpal tunnel surgery History of cholecystectomy History of laparoscopic appendectomy History of lumbar laminectomy History of reduction mammoplasty H/O abdominoplasty Hx of bariatric surgery Family History Mother Diabetes mellitus Essential hypertension Cardiovascular disease Daughter Wernicke-Korsakoff syndrome (alcoholic) Social History Household Members: None Household Members Other:: 0 Housing: House Do you presently have visiting nurse or other home services: No Alcohol intake: never Patient Tobacco Use Status: Former Tobacco user e-Cigarette/Vaping Use: Never Used Advance Directives Date on File: 12/22/21 service: No Current occupational status: retired Cognitive needs: No Hearing needs: No Vision needs: No Review of Systems Const All systems reviewed & are unremarkable except as noted in HPI and below Physical Exam Vital Signs: Last Vital Signs Pulse 93 12/06/23 08:30 BP 145/78 H 12/06/23 08:30 Pulse Ox 99 12/06/23 08:30 Oxygen Delivery Method Room Air 12/06/23 08:30 BMI result Body Mass Index 31.1 General: awake, alert, oriented. Answers questions appropriately. Fully engaged in examination. Skin: warm, dry, intact without visible rashes or lesions. HEENT: Normocephalic. Conjuntivae clear without exudate. Sclera non-icteric. Hearing intact. Cardiac: External chest normal in appearance. Respiratory: Cough without audible wheezing or stridor. Abdomen: without gross distension. MS: No obvious swelling or deformities. Able to transition from sit to stand unassisted. Ambulates with bilaterally normal heel strike and toe off Compression stockings bilateral lower extremities Neurological: Oriented to person, place, time and situation. Thought process intact. Ambulates with antalgic gait Psychiatric: Appropriate mood and affect. Good judgment and insight. Results Reviewed Results Reviewed: CT/CT abdomen pelvis w IV 10/26/22 OSSEOUS STRUCTURES: No acute or suspicious osseous abnormality. Degenerative changes throughout the spine. Assessment & Plan Assessment & Plan (1) Spondylosis without myelopathy or radiculopathy, lumbar region: Code(s): M47.816 - Spondylosis without myelopathy or radiculopathy, lumbar region Category: Medical (2) Bilateral primary osteoarthritis of knee: Code(s): M17.0 - Bilateral primary osteoarthritis of knee Category: Medical (3) Chronic pain syndrome: Code(s): G89.4 - Chronic pain syndrome Category: Medical (4) Disc degeneration, lumbar: Code(s): M51.36 - Other intervertebral disc degeneration, lumbar region Category: Medical (5) Trochanteric bursitis, left hip: Code(s): M70.62 - Trochanteric bursitis, left hip Category: Medical Plan [place] was reviewed and without concerns. No obvious signs of diversion, abuse or misuse of the opioid medications. Will send in prescription for oxycodone 5mg po daily with an advanced date of 01/04/2024. Will increase amitriptyline to 25 mg p.o. daily at bedtime. Patient requesting 90 day supply. Patient to follow-up in the office in 1 month, sooner if needed. All questions and concerns have been answered and patient agrees with the plan. Orders: Orders XR lumbar spine 4V min Today M47.816 - Spondylosis without myelopathy or radiculopathy, lumbar region Medications: Changed From amitriptyline 1 tab daily at bedtime for 2 weeks, then may increase to 2 tabs daily at bedtime 10 mg PO BEDTIME 60 tabs 0RF To amitriptyline 1 tab daily at bedtime for 2 weeks, then may increase to 2 tabs daily at bedtime 25 mg PO BEDTIME 90 tabs 0RF 90 days Refilled oxycodone Partial Fill upon patient request. Patient is recommended to take a half pill of oxycodone once or twice a day p.r.n. pain. 5 mg PO DAILY PRN 30 tabs 0RF pain 30 days M17.0 - Bilateral primary osteoarthritis of knee, M96.1 - Postlaminectomy syndrome, not elsewhere classified, Z79.891 - intermediate (current) use of opiate analgesic Coding Level of Care Code Est Pt Level 4 (05695) Complex EM visit Add On G2211 Diagnoses Spondylosis without myelopathy or radiculopathy, lumbar region M47.816 Bilateral primary osteoarthritis of knee M17.0 Chronic pain syndrome G89.4 Disc degeneration, lumbar M51.36 Trochanteric bursitis, left hip M70.62
== END 2023-12-06 08:56 | disposition home or self-care (01) ==
PROVIDERS: PCP Internal Medicine; Visit Provider Registered Nurse Emergency
DX: M47.816 Spondylosis without myelopathy or radiculopathy, lumbar region (principal); M17.0 Bilateral primary osteoarthritis of knee; G89.4 Chronic pain syndrome; M51.36 Other intervertebral disc degeneration, lumbar region; M70.62 Trochanteric bursitis, left hip
CPT/HCPCS: 99214; G2211

== ENCOUNTER 2023-12-07 08:02 | Outpatient (REF) | payer MEDICARE, OTHER, SELFPAY ==
--- NOTE | ~2023-12-07 | XR_ITS ---
EXAMINATION: CR LUMBAR SPINE CLINICAL INFORMATION: Spondylosis without myelopathy or radiculopathy, lumbar region. COMPARISON: CT scan of the abdomen and pelvis dated 10/26/2022. TECHNIQUE: 5 views of the lumbar spine were performed. FINDINGS: For the purposes of this dictation, the L4-5 disc space is designated to be at the level of the iliac crests. As such, there appear to be rudimentary ribs arising from the L1 vertebral body and there is pseudoarthrosis of the right transverse process of the L5 vertebral body with the sacrum. There is a convex right lumbar scoliosis . There is severe degenerative disc disease at L4-5 and L5-S1 with marked disc space narrowing and vertebral endplate sclerosis and spurring. Remainder of disc space height relatively well maintained. There is severe facet arthropathy in the mid and lower lumbar spine. No pars defect or spondylolisthesis is seen. The sacroiliac joints bilaterally are intact and demonstrate mild sclerosis along the iliac aspects of the joint. Pubic symphysis is intact. There is extensive atherosclerotic calcification of the abdominal aorta and bifurcation. A lap band and tubing are partially included in the [id number] of these images. There are right upper quadrant jacklyn in place from prior cholecystectomy. XR/XR lumbar spine 4V min IMPRESSION: 1. Convex right lumbar scoliosis with severe degenerative disc disease at L4-5 and L5-S1. 2. Severe facet arthropathy in the mid and lower lumbar spine. 3. No acute fracture or spondylolisthesis. 4. Atherosclerotic vascular disease. Electronically signed by: Yvette Palm MD 02/04/2024 11:07 AM SHAJI
== END 2023-12-07 08:03 | disposition home or self-care (01) ==
LOC: HO.XRAY 08:02
PROVIDERS: PCP Internal Medicine; Visit Provider Registered Nurse Emergency
DX: M47.816 Spondylosis without myelopathy or radiculopathy, lumbar region (principal)
CPT/HCPCS: 72110

== ENCOUNTER 2024-01-03 08:07 | Outpatient (AMB) | payer MEDICARE, OTHER, SELFPAY ==
--- NOTE | 2024-01-03 08:21 | MHC.OFFVIS ---
Vital Signs 01/03/24 08:27 Height 5 ft 2 in Weight 170 lb BMI 31.1 BP 122/73 Blood Pressure Location Lt brachial Position Sitting Pulse 90 Pulse Source Pulse Oximeter Pulse Oximetry (%) 98 Oxygen Delivery Method Room Air Intake Visit Reasons: PILL COUNT Intake Note: Leandra comes in today for a pill count to oxycodone, patient should have two tablets and presents with 3 tablets which she last took yesterday 01/02/24 at 3pm. Pain today 5/10 Inspector Hairspring Required: No Accompanied by: Self / Same As Patient Allergies buprenorphine [Belbuca] Allergy (Unknown, Verified 01/03/24 08:28) stomach upset NSAIDS (Non-Steroidal Anti-Inflamma Allergy (Unknown, Verified 01/03/24 08:28) Stomach Upset HPI Comments Details: Leandra presents back to the office today for follow up chronic pain and chronic opioid therapy management. Patient is prescribed oxycodone 5 mg tablets, take 1 tablet daily as needed. Patient arrived today with the expectation of having 2 pills, she presented 3 pills which were counted in the presence of two staff members and returned to the patient in the original prescription bottle. This demonstrates responsible attitude toward patient's opioid medications. Pain is reported today as 5/10 and last dose of pain medication was taken yesterday at 15:00. She denies side effects including somnolence, constipation, itching, dyspnea, rash, dizziness, urinary retention or weakness. Patient reports that her lower back pain has been significantly worse over the last couple of months. Recent x-ray was reviewed, no official results available. She is taking 5 mg oxycodone once daily but reports difficulty sleeping at night due to the pain. She has attempted to try half tablet twice daily but the half tablet dose does not provide her much relief. Amitriptyline 25 mg at bedtime initially was providing much relief. She reports that over the last couple weeks she is continuing to wake up in pain the bilateral peripheral neuropathy symptoms are getting much worse. Denies recent EMG. Previously: Patient had fifth SUSSY 05/23/2022, reports still receiving good effect and does not wish to schedule repeat at this time. She has PHQ score is equal to 1, Her opioid addiction risk score is equal to 2 Total score is equal to 3 she is low risk for opioid addiction. [facility] Medical History (Updated 01/03/24 @ 11:28 by Nasreen Hernandez APRN, [employer]SULTING ARCHITECT) Osteoarthritis History of osteopenia Obesity (BMI 30.0-34.9) Prolapse of anterior vaginal wall Essential hypertension Dyslipidemia Irritable bowel syndrome Chronic pain syndrome Bilateral primary osteoarthritis of knee Spondylosis without myelopathy or radiculopathy, lumbar region Surgical History History of tonsillectomy History of hysterectomy History of carpal tunnel surgery History of cholecystectomy History of laparoscopic appendectomy History of lumbar laminectomy History of reduction mammoplasty H/O abdominoplasty Hx of bariatric surgery Family History Mother Diabetes mellitus Essential hypertension Cardiovascular disease Daughter Wernicke-Korsakoff syndrome (alcoholic) Social History Household Members: None Household Members Other:: 0 Housing: House Do you presently have visiting nurse or other home services: No Alcohol intake: never Patient Tobacco Use Status: Former Tobacco user e-Cigarette/Vaping Use: Never Used Advance Directives Date on File: 12/22/21 service: No Current occupational status: retired Cognitive needs: No Hearing needs: No Vision needs: No Review of Systems Const All systems reviewed & are unremarkable except as noted in HPI and below Physical Exam Vital Signs: Last Vital Signs Pulse 90 01/03/24 08:27 BP 122/73 01/03/24 08:27 Pulse Ox 98 01/03/24 08:27 Oxygen Delivery Method Room Air 01/03/24 08:27 BMI result Body Mass Index 31.1 General: awake, alert, oriented. Answers questions appropriately. Fully engaged in examination. Skin: warm, dry, intact without visible rashes or lesions. HEENT: Normocephalic. Conjuntivae clear without exudate. Sclera non-icteric. Hearing intact. Cardiac: External chest normal in appearance. Respiratory: Cough without audible wheezing or stridor. Abdomen: without gross distension. MS: No obvious swelling or deformities. Able to transition from sit to stand unassisted. Ambulates with bilaterally normal heel strike and toe off Compression stockings bilateral lower extremities Neurological: Oriented to person, place, time and situation. Thought process intact. Ambulates with antalgic gait Psychiatric: Appropriate mood and affect. Good judgment and insight. Results Reviewed Results Reviewed: 11/2023 x-ray lumbar spine Independently reviewed: Worsening degenerative disc disease. Official radiologist's reading pending. CT/CT abdomen pelvis w IV 10/26/22 OSSEOUS STRUCTURES: No acute or suspicious osseous abnormality. Degenerative changes throughout the spine. Assessment & Plan Assessment & Plan (1) Peripheral neuropathy: Code(s): G62.9 - Polyneuropathy, unspecified Category: Medical (2) Spondylosis without myelopathy or radiculopathy, lumbar region: Code(s): M47.816 - Spondylosis without myelopathy or radiculopathy, lumbar region Category: Medical (3) Bilateral primary osteoarthritis of knee: Code(s): M17.0 - Bilateral primary osteoarthritis of knee Category: Medical (4) Chronic pain syndrome: Code(s): G89.4 - Chronic pain syndrome Category: Medical (5) Disc degeneration, lumbar: Code(s): M51.36 - Other intervertebral disc degeneration, lumbar region Category: Medical (6) Trochanteric bursitis, left hip: Code(s): M70.62 - Trochanteric bursitis, left hip Category: Medical Plan Masspat was reviewed and without concerns. No obvious signs of diversion, abuse or misuse of the opioid medications. Will increase dose to oxycodone 5 mg twice daily as needed. Continue with amitriptyline to 25 mg p.o. daily at bedtime. Patient requesting 90 day supply. EMG ordered for evaluation of worsening peripheral neuropathy MRI ordered for evaluation of patient's worsening back pain Patient to follow-up in the office in 1 month, sooner if needed. All questions and concerns have been answered and patient agrees with the plan. Orders: Orders MR lumbar spine wo con Today M43.06 - Spondylolysis, lumbar region NE electromyogram (EMG) Today G62.9 - Polyneuropathy, unspecified Medications: Changed From oxycodone Partial Fill upon patient request. Patient is recommended to take a half pill of oxycodone once or twice a day p.r.n. pain. 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 5 mg PO BID PRN 60 tabs 0RF pain 30 days M17.0 - Bilateral primary osteoarthritis of knee, M96.1 - Postlaminectomy syndrome, not elsewhere classified, Z79.891 - retirement (current) use of opiate analgesic Coding Level of Care Code Est Pt Level 4 (05638) Complex EM visit Add On G2211 Diagnoses Peripheral neuropathy G62.9 Spondylosis without myelopathy or radiculopathy, lumbar region M47.816 Bilateral primary osteoarthritis of knee M17.0 Chronic pain syndrome G89.4 Disc degeneration, lumbar M51.36 Trochanteric bursitis, left hip M70.62
[2024-01-03 08:27] VITALS: BP 122/73; PULSE 90; O2SAT 98; BMI 31.1
== END 2024-01-03 08:58 | disposition home or self-care (01) ==
PROVIDERS: PCP Internal Medicine; Visit Provider Registered Nurse Emergency
DX: G62.9 Polyneuropathy, unspecified (principal); M47.816 Spondylosis without myelopathy or radiculopathy, lumbar region; M17.0 Bilateral primary osteoarthritis of knee; G89.4 Chronic pain syndrome; M51.369 Other intervertebral disc degeneration, lumbar region without mention of lumbar back pain or lower extremity pain; M70.62 Trochanteric bursitis, left hip
CPT/HCPCS: 99214; G2211

== ENCOUNTER → 2024-01-03 08:07 | Outpatient (BNVA) | payer MEDICARE, OTHER, SELFPAY | PROVIDERS: PCP Internal Medicine; Visit Provider Registered Nurse Emergency | DX: M17.0 Bilateral primary osteoarthritis of knee (principal); M51.369 Other intervertebral disc degeneration, lumbar region without mention of lumbar back pain or lower extremity pain; M70.62 Trochanteric bursitis, left hip; M96.1 Postlaminectomy syndrome, not elsewhere classified; G62.9 Polyneuropathy, unspecified; G89.4 Chronic pain syndrome; Z51.81 Encounter for therapeutic drug level monitoring; Z79.891 Long term (current) use of opiate analgesic | CPT/HCPCS: 99212 ==

== ENCOUNTER 2024-01-29 08:34 | Outpatient (AMB) | payer MEDICARE, OTHER, SELFPAY ==
[2024-01-29 08:56] VITALS: BP 120/74; BMI 31.1
--- NOTE | 2024-01-29 08:56 | A.OFFVIS_ITS ---
Vital Signs 01/29/24 08:56 Height 5 ft 2 in Weight 170 lb BMI 31.1 BP 120/74 Blood Pressure Location Lt brachial Position Sitting Intake Visit Reasons: MANAGER AUDIO- Lymphedema self refer. Intake Note: Leandra is a 73 year old female who presents to the office today for a new patient visit for lymphedema. Pt states over the years her legs have been getting more swollen. Pt states her pain is now mostly in her ankles. Pt states one leg isn't worse than the other. Pt states she uses compression socks everyday. Pt denies any discoloration in her legs. Allergies buprenorphine [Belbuca] Allergy (Unknown, Verified 01/29/24 08:58) stomach upset NSAIDS (Non-Steroidal Anti-Inflamma Allergy (Unknown, Verified 01/29/24 08:58) Stomach Upset HPI HPI MANAGER AUDIO- Lymphedema self refer.: Details: Leandra, a pleasant 73-year-old female, is a self-referral for ongoing lymphedema bilaterally. [facility], most recently was seen in July. She has had ultrasounds there as well as ablations bilaterally and scleroderma procedures performed. She states she continues with increased swelling bilaterally. She does state she has minimal pain, particularly when her legs are more swollen. She uses elevation when sitting, compression stockings daily, and walks; she recently returned from a trip in [place] where she was walking many miles daily. She denies any heaviness or fatigue in her lower extremities. She states the swelling is from her ankles up to just below her knees bilaterally. 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 She is a former smoker. She is not a diabetic. Patient states she does have a history of neuropathy and arthritis in her feet, but states this is different. [facility] Medical History Osteoarthritis History of osteopenia Obesity (BMI 30.0-34.9) Prolapse of anterior vaginal wall Essential hypertension Dyslipidemia Irritable bowel syndrome Chronic pain syndrome Bilateral primary osteoarthritis of knee Spondylosis without myelopathy or radiculopathy, lumbar region Surgical History History of tonsillectomy History of hysterectomy History of carpal tunnel surgery History of cholecystectomy History of laparoscopic appendectomy History of lumbar laminectomy History of reduction mammoplasty H/O abdominoplasty Hx of bariatric surgery Family History Mother Diabetes mellitus Essential hypertension Cardiovascular disease Daughter Wernicke-Korsakoff syndrome (alcoholic) Social History Household Members: None Household Members Other:: 0 Housing: House Do you presently have visiting nurse or other home services: No Alcohol intake: never Patient Tobacco Use Status: Former Tobacco user e-Cigarette/Vaping Use: Never Used Advance Directives Date on File: 12/22/21 service: No Current occupational status: retired Cognitive needs: No Hearing needs: No Vision needs: No Review of Systems Const Reports as per HPI and Denies weakness ENT Reports Normal hearing present and Denies dizziness Card Reports as per HPI, Denies chest pain, Denies chest pain at rest, Denies chest pain with activity, Denies dyspnea and Denies dyspnea on exertion Resp Reports as per HPI, Denies cough, Denies dyspnea and Denies dyspnea on exertion GI Reports as per HPI, Denies abdominal pain, Denies nausea and Denies vomiting Musc Denies numbness Skin/Breast Reports as per HPI, Denies erythema and Denies wounds Neuro Reports Normal hearing present, Denies dizziness, Denies numbness, Denies Sensory deficit (Neuro) and Denies weakness Psych Reports no additional complaints Endo Reports no additional complaints Physical Exam Vital Signs: Last Vital Signs BP 120/74 01/29/24 08:56 BMI result Body Mass Index 31.1 Const General: healthy appearing and no acute distress Orientation/consciousness: patient oriented x3 HEENT Head: Yes normal to inspection Ears: hearing grossly normal bilaterally Mouth: Normal oral and palatal mucosa present Resp Effort & Inspection: normal respiratory effort and able to speak in complete sentences Auscultation: clear to auscultation bilaterally Cardio Jugular venous distension: no JVD Rate: regular rate Rhythm: regular rhythm Heart sounds: S1 normal heart sound present and S2 normal heart sound present Bruits: no abdominal aortic bruits, no carotid bruits, no femoral bruits and no renal bruits Peripheral pulses: Peripheral pulses 2+ throughout GI Inspection: Yes normal to inspection Palpation (GI): No Abdominal aortic bruit present Skin General skin exam: no rashes or lesions noted Wounds: no wounds Hair: normal Neuro General: patient oriented x3 Cranial nerves: Yes Normal hearing present Cognition (Neuro): normal cognition Gait exam (Neuro): Normal gait present Motor exam (neuro): 5/5 motor strength present throughout Sensory Exam: No Sensory deficit (Neuro) Extrem Other: Bilateral lower extremities: 1+ edema from the ankles to just below her knees. Slight discoloration noted. Palpable DP pulses. Right in cm: Thigh 49 Knee 41 Calf 40.5 Ankle 26 Left in cm: Thigh 50 Knee 40 Calf 39.5 Ankle 26.5 General: Yes normal to inspection, Yes full ROM, Yes capillary refill normal and Yes normal gait Assessment & Plan Assessment & Plan (1) Lymphedema: Code(s): I89.0 - Lymphedema, not elsewhere classified Category: Medical Plan: Leandra is presenting today as a self-referral for ongoing lymphedema. She states she has had years of bilateral lower extremity swelling. She has used all conservative measures for 2 years including compression stockings, elevation, and walking/physical activity. She has been seen previously [facility] and has had ablation bilaterally as well as scleroderma but continues with the swelling. The patient states she has reached out to [facility] before for lymphedema compression pumps and they did come to her house and measure her; however, she states she never heard back from them and then found out that they were not covered by her insurance. Due to the ongoing swelling and use of conservative measures for well over 6 months, we will be referring her to our lymphedema clinic. We will have her continue with the conservative measures. We will see her back in the office on February 19 for the lymphedema clinic. If there are any questions or concerns, please do not hesitate to reach out to us. Coding Level of Care Code New Pt New Pt Level 4 (00937) Patient Type New Diagnoses Lymphedema I89.0
== END 2024-01-29 09:26 | disposition home or self-care (01) ==
PROVIDERS: PCP Internal Medicine; Visit Provider Physician Assistant Surgical
DX: I89.0 Lymphedema, not elsewhere classified (principal)
CPT/HCPCS: 99204

== ENCOUNTER → 2024-01-29 08:34 | Outpatient (BNVA) | payer MEDICARE, OTHER, SELFPAY | PROVIDERS: PCP Internal Medicine; Visit Provider Physician Assistant Surgical | DX: I89.0 Lymphedema, not elsewhere classified (principal); G62.9 Polyneuropathy, unspecified | CPT/HCPCS: 99202 ==

== ENCOUNTER 2024-02-04 09:54 | Outpatient (REF) | payer MEDICARE, OTHER, SELFPAY | END 2024-02-04 09:55 | disposition home or self-care (01) | LOC: HO.MRI 09:54 | PROVIDERS: PCP Internal Medicine; Visit Provider Registered Nurse Emergency | DX: M43.06 Spondylolysis, lumbar region (principal) | CPT/HCPCS: 72148 ==

== ENCOUNTER 2024-02-06 08:06 | Outpatient (AMB) | payer MEDICARE, OTHER, SELFPAY ==
[2024-02-06 08:33] VITALS: BP 125/65; PULSE 104; O2SAT 98; BMI 29.1
--- NOTE | 2024-02-06 08:33 | A.OFFVIS_ITS ---
Vital Signs 02/06/24 08:33 Height 5 ft 2 in Weight 159 lb BMI 29.1 BP 125/65 Blood Pressure Location Lt brachial Position Sitting Pulse 104 H Pulse Source Pulse Oximeter Pulse Oximetry (%) 98 Oxygen Delivery Method Room Air Intake Visit Reasons: PILL COUNT Allergies buprenorphine [Belbuca] Allergy (Unknown, Verified 02/06/24 08:34) stomach upset NSAIDS (Non-Steroidal Anti-Inflamma Allergy (Unknown, Verified 02/06/24 08:34) Stomach Upset Medication List - Last Reconciled 02/06/24 by Maria Esther Joseph amitriptyline 25 mg PO BEDTIME 90 days atorvastatin 20 mg PO DAILY bisacodyl (Dulcolax (bisacodyl)) 10 mg PO DAILY cholecalciferol (vitamin D3) (Vitamin D3) 50 mcg PO DAILY docusate sodium (Colace) 200 mg PO DAILY estradiol (Estrace) 2 mg PO DAILY hydrochlorothiazide 12.5 mg PO DAILY hyoscyamine sulfate 0.125 mg PO DAILY PRN magnesium 250 mg PO DAILY omeprazole magnesium 20 mg PO DAILY@0630 PRN oxycodone 5 mg PO BID PRN 30 days trazodone 100 mg PO BEDTIME HPI Comments Details: Leandra presents back to the office today for follow up chronic pain and chronic opioid therapy management. Patient is prescribed oxycodone 5 mg tablets, take 2 tablets daily as needed. Patient arrived today with the expectation of having 0 pills, she presented 0 pills which were counted in the presence of two staff members and returned to the patient in the original prescription bottle. This demonstrates responsible attitude toward patient's opioid medications. Pain is reported today as 4/10 and last dose of pain medication was taken 02/03/24. She denies side effects including somnolence, constipation, itching, dyspnea, rash, dizziness, urinary retention or weakness. MRI completed 2 days ago, results pending EMG scheduled for this week Continue with amitriptyline at bedtime with some relief Just returned from [place], reports worsening pain while she was there due to the constant walking and stairs. Pain adequately managed with medication increase from once daily to twice daily at last visit. She has a pending trip to a [place] for 2 weeks in March. Will need to adjust fill dates to cover for this vacation. Will be away March 27 to Previously: Patient had fifth SSUSY 05/23/2022, reports still receiving good effect and does not wish to schedule repeat at this time. She has PHQ score is equal to 1, Her opioid addiction risk score is equal to 2 Total score is equal to 3 she is low risk for opioid addiction. [facility] Medical History Osteoarthritis History of osteopenia Obesity (BMI 30.0-34.9) Prolapse of anterior vaginal wall Essential hypertension Dyslipidemia Irritable bowel syndrome Chronic pain syndrome Bilateral primary osteoarthritis of knee Spondylosis without myelopathy or radiculopathy, lumbar region Surgical History History of tonsillectomy History of hysterectomy History of carpal tunnel surgery History of cholecystectomy History of laparoscopic appendectomy History of lumbar laminectomy History of reduction mammoplasty H/O abdominoplasty Hx of bariatric surgery Family History Mother Diabetes mellitus Essential hypertension Cardiovascular disease Daughter Wernicke-Korsakoff syndrome (alcoholic) Social History Household Members: None Household Members Other:: 0 Housing: House Do you presently have visiting nurse or other home services: No Alcohol intake: never Patient Tobacco Use Status: Former Tobacco user e-Cigarette/Vaping Use: Never Used Advance Directives Date on File: 12/22/21 service: No Current occupational status: retired Cognitive needs: No Hearing needs: No Vision needs: No Review of Systems Const All systems reviewed & are unremarkable except as noted in HPI and below Physical Exam Vital Signs: Last Vital Signs Pulse 104 H 02/06/24 08:33 BP 125/65 02/06/24 08:33 Pulse Ox 98 02/06/24 08:33 Oxygen Delivery Method Room Air 02/06/24 08:33 BMI result Body Mass Index 29.1 General: awake, alert, oriented. Answers questions appropriately. Fully engaged in examination. Skin: warm, dry, intact without visible rashes or lesions. HEENT: Normocephalic. Cardiac: External chest normal in appearance. Respiratory: Cough without audible wheezing or stridor. Abdomen: without gross distension. MS: No obvious swelling or deformities. Able to transition from sit to stand unassisted. Ambulates with bilaterally normal heel strike and toe off Compression stockings bilateral lower extremities Neurological: Oriented to person, place, time and situation. Thought process intact. Ambulates with antalgic gait Psychiatric: Appropriate mood and affect. Good judgment and insight. Results Reviewed Results Reviewed: 11/2023 x-ray lumbar spine Independently reviewed: Worsening degenerative disc disease. Official radiolo gist's reading pending. CT/CT abdomen pelvis w IV 10/26/22 OSSEOUS STRUCTURES: No acute or suspicious osseous abnormality. Degenerative changes throughout the spine. Assessment & Plan Assessment & Plan (1) Peripheral neuropathy: Code(s): G62.9 - Polyneuropathy, unspecified Category: Medical (2) Spondylosis without myelopathy or radiculopathy, lumbar region: Code(s): M47.816 - Spondylosis without myelopathy or radiculopathy, lumbar region Category: Medical (3) Bilateral primary osteoarthritis of knee: Code(s): M17.0 - Bilateral primary osteoarthritis of knee Category: Medical (4) Chronic pain syndrome: Code(s): G89.4 - Chronic pain syndrome Category: Medical (5) Disc degeneration, lumbar: Code(s): M51.36 - Other intervertebral disc degeneration, lumbar region Category: Medical (6) Trochanteric bursitis, left hip: Code(s): M70.62 - Trochanteric bursitis, left hip Category: Medical Plan Masspat was reviewed and without concerns. No obvious signs of diversion, abuse or misuse of the opioid medications. Continue with oxycodone 5 mg twice daily as needed. Three-week prescription sent, patient will follow up every 3 weeks for next 2 visits to accommodate her trip to [facility] in March. Continue with amitriptyline to 25 mg p.o. daily at bedtime. Patient to follow-up in the office in 3 weeks, sooner if needed. All questions and concerns have been answered and patient agrees with the plan. Medications: Changed From oxycodone Partial Fill upon patient request. 5 mg PO BID 30 days PRN 60 tabs 0RF pain M17.0 - Bilateral primary osteoarthritis of knee, M96.1 - Postlaminectomy syndrome, not elsewhere classified, Z79.891 - medical terminologist (current) use of opiate analgesic To oxycodone Partial Fill upon patient request. 5 mg PO BID 21 days PRN 42 tabs 0RF pain M17.0 - Bilateral primary osteoarthritis of knee, M96.1 - Postlaminectomy syndrome, not elsewhere classified, Z79.891 - longterm (current) use of opiate analgesic Coding Level of Care Code Est Pt Level 4 (80447) Complex EM visit Add On G2211 Diagnoses Peripheral neuropathy G62.9 Spondylosis without myelopathy or radiculopathy, lumbar region M47.816 Bilateral primary osteoarthritis of knee M17.0 Chronic pain syndrome G89.4 Disc degeneration, lumbar M51.36 Trochanteric bursitis, left hip M70.62
== END 2024-02-06 09:00 | disposition home or self-care (01) ==
PROVIDERS: PCP Internal Medicine; Visit Provider Registered Nurse Emergency
DX: G62.9 Polyneuropathy, unspecified (principal); M47.816 Spondylosis without myelopathy or radiculopathy, lumbar region; M17.0 Bilateral primary osteoarthritis of knee; G89.4 Chronic pain syndrome; M51.369 Other intervertebral disc degeneration, lumbar region without mention of lumbar back pain or lower extremity pain; M70.62 Trochanteric bursitis, left hip
CPT/HCPCS: 99214; G2211

== ENCOUNTER → 2024-02-06 08:06 | Outpatient (BNVA) | payer MEDICARE, OTHER, SELFPAY | PROVIDERS: PCP Internal Medicine; Visit Provider Registered Nurse Emergency | DX: G62.9 Polyneuropathy, unspecified (principal); G89.4 Chronic pain syndrome; M17.0 Bilateral primary osteoarthritis of knee; M47.816 Spondylosis without myelopathy or radiculopathy, lumbar region; M51.369 Other intervertebral disc degeneration, lumbar region without mention of lumbar back pain or lower extremity pain; M70.62 Trochanteric bursitis, left hip; Z79.891 Long term (current) use of opiate analgesic | CPT/HCPCS: 99212 ==

== ENCOUNTER 2024-02-12 08:09 | Outpatient (AMB) | payer MEDICARE, OTHER, SELFPAY ==
[2024-02-12 08:10] VITALS: BP 128/80; PULSE 80; O2SAT 100; BMI 29.1
--- NOTE | 2024-02-12 08:10 | MHC.OFFWIV ---
Intake Vital Signs 02/12/24 08:10 Height 5 ft 2 in Weight 159 lb BMI 29.1 BP 128/80 Blood Pressure Location Rt brachial Position Sitting Pulse 80 Pulse Source Pulse Oximeter Pulse Oximetry (%) 100 Oxygen Delivery Method Room Air Intake Visit Reasons: EP-?rt foot sprain/pain Intake Note: Patient here for right foot pain that has been present since sunday. Patient Tobacco Use Status: Former Tobacco user Allergies buprenorphine [Belbuca] Allergy (Unknown, Verified 02/12/24 08:21) stomach upset NSAIDS (Non-Steroidal Anti-Inflamma Allergy (Unknown, Verified 02/12/24 08:21) Stomach Upset Do you need a note to return to daycare/school/sports/work: No HPI HPI Comments History of Present Illness Details History of Present Illness The patient is a 73-year-old female presenting with right lower leg pain. The problem began when she stood up 2 days ago. Since then, she has experienced progressive pain and difficulty with weight-bearing on the affected leg. The patient also reports a severe pain when bending the leg and a sensation of wanting to scream due to pain in the base of her foot. Though she has a known history of neuropathy in both feet, she believes the current pain is unrelated. She has a prosthesis on her right knee and arthritis in her left foot, but has never had arthritis in the right foot. Additionally, she has a strong family history of blood clots, including those affecting her mother, several siblings, and son. The patient recently returned from [place] on Jan 17 after an 11-day trip, potentially increasing risk factors due to prolonged immobility during long flights. Despite wearing support stockings and maintaining limited mobility with a cane, she observes swelling in the affected foot, which is not discolored. There is concern about a possible torn ligament, fracture, or a blood clot. The patient denies experiencing any shortness of breath or breathing difficulties. [facility] Medical History Osteoarthritis History of osteopenia Obesity (BMI 30.0-34.9) Prolapse of anterior vaginal wall Essential hypertension Dyslipidemia Irritable bowel syndrome Chronic pain syndrome Bilateral primary osteoarthritis of knee Spondylosis without myelopathy or radiculopathy, lumbar region Surgical History History of tonsillectomy History of hysterectomy History of carpal tunnel surgery History of cholecystectomy History of laparoscopic appendectomy History of lumbar laminectomy History of reduction mammoplasty H/O abdominoplasty Hx of bariatric surgery Family History Mother Diabetes mellitus Essential hypertension Cardiovascular disease Daughter Wernicke-Korsakoff syndrome (alcoholic) Social History Household Members: None Household Members Other:: 0 Housing: House Do you presently have visiting nurse or other home services: No Alcohol intake: never Patient Tobacco Use Status: Former Tobacco user e-Cigarette/Vaping Use: Never Used Advance Directives Date on File: 12/22/21 service: No Current occupational status: retired Cognitive needs: No Hearing needs: No Vision needs: No Review of Systems Const All systems reviewed & are unremarkable except as noted in HPI and below Physical Exam Vital Signs: Last Vital Signs Pulse 80 02/12/24 08:10 BP 128/80 02/12/24 08:10 Pulse Ox 100 02/12/24 08:10 Oxygen Delivery Method Room Air 02/12/24 08:10 BMI result Body Mass Index 29.1 Const General: cooperative, healthy appearing, comfortable and no acute distress Orientation/consciousness: patient oriented x3 Limitations: no limitations HEENT Head: Yes normal to inspection Resp Effort & Inspection: normal respiratory effort and able to speak in complete sentences Neuro General: patient oriented x3 Extrem Right lower extremity: lower leg (+Homans) Details: normal to inspection, tenderness Location: of the posterior calf and localized swelling; no abrasions, no lacerations, no ecchymosis, no deformity and no unusual warmth and foot Details: normal capillary refill, normal to inspection, tenderness Location: of the dorsal foot Location: proximally, toes with normal ROM, edema, tendon exam Details: active flexion normal and active extension normal and motor-sensory exam Details: light-touch normal; no unusual warmth, no abrasion, no laceration and no ecchymosis Results Reviewed Results Reviewed: US/US venous duplex LE RT IMPRESSION: No evidence of deep venous thrombosis involving the right lower extremity. Complex fluid collection in the region of the of the inferior right ankle in the patient's area of pain. Assessment & Plan Assessment & Plan (1) Pain of right lower leg: Code(s): M79.661 - Pain in right lower leg Plan: - Recommend an immediate ultrasound of the right lower extremity to assess for Deep Vein Thrombosis DVT. Right US was negative for DVT. - Will get foot and ankle x-ray of the right side as patient is having difficulty ambulating and there was a small effusions noted on the ultrasound. Ankle x-ray suspicious for fracture, pending final read; placed patient in high boot for comfort for 2 weeks and will send Ortho referral for follow up. Patient was informed and verbally consented to the use of an ambient scribe for clinic note documentation during this visit. (2) Right foot pain: Code(s): M79.671 - Pain in right foot Plan: as above (3) Right ankle pain: Code(s): M25.571 - Pain in right ankle and joints of right foot Qualifiers: Chronicity: acute Qualified Code(s): M25.571 - Pain in right ankle and joints of right foot Plan: as above (4) Ankle sprain: Code(s): S93.409A - Sprain of unspecified ligament of unspecified ankle, initial encounter Qualifiers: Encounter type: initial encounter Involved ligament of ankle: posterior talofibular ligament Laterality: right Qualified Code(s): S93.491A - Sprain of other ligament of right ankle, initial encounter Plan: as above Orders: Orders XR foot RT min 3V Today M25.571 - Pain in right ankle and joints of right foot US venous duplex LE RT Today M79.661 - Pain in right lower leg Referrals Orthopedics Referral M25.571 - Pain in right ankle and joints of right foot, S93.491A - Sprain of other ligament of right ankle, initial encounter Coding Level of Care Code Est Pt Level 5 (32285) Diagnoses Pain of right lower leg M79.661 Right foot pain M79.671 Acute right ankle pain M25.571 Chronicity: acute Sprain of posterior talofibular ligament of right ankle, initial encounter S93.491A Encounter type: initial encounter Involved ligament of ankle: posterior talofibular ligament Laterality: right
== END 2024-02-12 12:09 | disposition home or self-care (01) ==
PROVIDERS: PCP Internal Medicine; Visit Provider Physician Assistant
DX: M79.661 Pain in right lower leg (principal); M79.671 Pain in right foot; M25.571 Pain in right ankle and joints of right foot; S93.491A Sprain of other ligament of right ankle, initial encounter

== ENCOUNTER 2024-02-12 08:09 | Outpatient (REF) | payer MEDICARE, OTHER, SELFPAY ==
--- NOTE | ~2024-02-12 | XR_ITS ---
EXAMINATION: XR ANKLE, RIGHT. XR FOOT, RIGHT. CLINICAL INFORMATION: Right ankle and foot pain COMPARISON: None. TECHNIQUE: 3 views of the right ankle. 3 views of the right foot. FINDINGS: No acute fracture. The ankle mortise is preserved. Probable ossified body in the anterior tibiotalar joint space. Vascular calcifications are noted. Moderately sized heel spur. Mild osteoarthritis of the 1st MTP joint and 2nd TMT joint. XR/XR ankle RT 2V IMPRESSION: No acute osseous abnormality of the right ankle or foot. Mild degenerative changes as described. Probable ossified body in the anterior tibiotalar joint space. Electronically signed by: Harsha Antonio MD 02/13/2024 02:38 PM EST
--- NOTE | ~2024-02-12 | XR_ITS ---
EXAMINATION: XR ANKLE, RIGHT. XR FOOT, RIGHT. CLINICAL INFORMATION: Right ankle and foot pain COMPARISON: None. TECHNIQUE: 3 views of the right ankle. 3 views of the right foot. FINDINGS: No acute fracture. The ankle mortise is preserved. Probable ossified body in the anterior tibiotalar joint space. Vascular calcifications are noted. Moderately sized heel spur. Mild osteoarthritis of the 1st MTP joint and 2nd TMT joint. XR/XR foot RT min 3V IMPRESSION: No acute osseous abnormality of the right ankle or foot. Mild degenerative changes as described. Probable ossified body in the anterior tibiotalar joint space. Electronically signed by: Harsha Antonio MD 02/13/2024 02:38 PM [facility]
== END 2024-02-12 08:10 | disposition home or self-care (01) ==
LOC: HO.HMGCX 08:09
PROVIDERS: PCP Internal Medicine; Visit Provider Physician Assistant
DX: Z13.89 Encounter for screening for other disorder (principal)
CPT/HCPCS: 73600; 73630

== ENCOUNTER 2024-02-12 08:52 | Outpatient (REF) | payer MEDICARE, OTHER, SELFPAY ==
--- NOTE | ~2024-02-12 | US_ITS ---
EXAMINATION: US TRIPLEX LOWER EXTREMITY, RIGHT CLINICAL INFORMATION: Pain in the right lower leg COMPARISON: None available. TECHNIQUE: Color-flow triplex imaging with spectral analysis and compression Doppler were performed on the right lower extremity. FINDINGS: Respiratory variation, normal compression and augmented flow are noted throughout the right lower extremity. The visualized common femoral vein, superficial femoral vein, profunda femoral vein, popliteal vein and midcalf peroneal and posterior tibial venous segments show no evidence of deep venous thrombosis. There is no Duenas's cyst. Complex fluid collection in the region of the of the inferior right ankle in the patient's area of pain. US/US venous duplex LE RT IMPRESSION: No evidence of deep venous thrombosis involving the right lower extremity. Complex fluid collection in the region of the of the inferior right ankle in the patient's area of pain. Electronically signed by: Rhea Locke MD 02/12/2024 09:51 AM EST Workstation: [id number]
== END 2024-02-12 08:53 | disposition home or self-care (01) ==
LOC: HO.HMGCX 08:52
PROVIDERS: PCP Internal Medicine; Visit Provider Physician Assistant
DX: M79.661 Pain in right lower leg (principal); M79.671 Pain in right foot; M25.571 Pain in right ankle and joints of right foot; S93.409A Sprain of unspecified ligament of unspecified ankle, initial encounter
CPT/HCPCS: 73600; 73630; 93971; 99212

== ENCOUNTER 2024-02-27 12:48 | Outpatient (AMB) | payer MEDICARE, OTHER, SELFPAY ==
--- NOTE | 2024-02-27 12:53 | A.OFFVIS_ITS ---
Vital Signs 02/27/24 13:00 Height 5 ft 2 in Weight 153 lb BMI 28.0 BP 126/80 Blood Pressure Location Lt brachial Position Sitting Pulse 108 H Pulse Source Pulse Oximeter Pulse Oximetry (%) 97 Oxygen Delivery Method Room Air Intake Visit Reasons: Pill Count Intake Note: Leandra comes in today for a pill count to oxycodone, patient should have 0 tablets and presents with 0 tablets which she last took yesterday 02/26/24 in the afternoon. Pain today [facility] Director Required: No Accompanied by: Self / Same As Patient Allergies buprenorphine [Belbuca] Allergy (Unknown, Verified 02/27/24 13:00) stomach upset NSAIDS (Non-Steroidal Anti-Inflamma Allergy (Unknown, Verified 02/27/24 13:00) Stomach Upset HPI Comments Details: Leandra presents back to the office today for follow up chronic pain and chronic opioid therapy management. Patient is prescribed oxycodone 5 mg tablets, take 2 tablets daily as needed. Patient arrived today with the expectation of having 0 pills, she presented 0 pills which were counted in the presence of two staff members and returned to the patient in the original prescription bottle. This demonstrates responsible attitude toward patient's opioid medications. Pain is reported today as 8/10 and last dose of pain medication was taken yesterday. She denies side effects including somnolence, constipation, itching, dyspnea, rash, dizziness, urinary retention or weakness. MRI results still pending EMG was rescheduled, new appt is later this week Continues with amitriptyline at bedtime with some relief Previously: Patient had fifth SUSSY 05/23/2022, reports still receiving good effect and does not wish to schedule repeat at this time. She has PHQ score is equal to 1, Her opioid addiction risk score is equal to 2 Total score is equal to 3 she is low risk for opioid addiction. [facility] Medical History Osteoarthritis History of osteopenia Obesity (BMI 30.0-34.9) Prolapse of anterior vaginal wall Essential hypertension Dyslipidemia Irritable bowel syndrome Chronic pain syndrome Bilateral primary osteoarthritis of knee Spondylosis without myelopathy or radiculopathy, lumbar region Surgical History History of tonsillectomy History of hysterectomy History of carpal tunnel surgery History of cholecystectomy History of laparoscopic appendectomy History of lumbar laminectomy History of reduction mammoplasty H/O abdominoplasty Hx of bariatric surgery Family History Mother Diabetes mellitus Essential hypertension Cardiovascular disease Daughter Wernicke-Korsakoff syndrome (alcoholic) Social History Household Members: None Household Members Other:: 0 Housing: House Do you presently have visiting nurse or other home services: No Alcohol intake: never Patient Tobacco Use Status: Former Tobacco user e-Cigarette/Vaping Use: Never Used Advance Directives Date on File: 12/22/21 service: No Current occupational status: retired Cognitive needs: No Hearing needs: No Vision needs: No Review of Systems Const All systems reviewed & are unremarkable except as noted in HPI and below Physical Exam Vital Signs: Last Vital Signs Pulse 108 H 02/27/24 13:00 BP 126/80 02/27/24 13:00 Pulse Ox 97 02/27/24 13:00 Oxygen Delivery Method Room Air 02/27/24 13:00 BMI result Body Mass Index 28.0 General: awake, alert, oriented. Answers questions appropriately. Fully engaged in examination. Skin: warm, dry, intact without visible rashes or lesions. HEENT: Normocephalic. Cardiac: External chest normal in appearance. Respiratory: Cough without audible wheezing or stridor. Abdomen: without gross distension. MS: No obvious swelling or deformities. Able to transition from sit to stand unassisted. Ambulates with bilaterally normal heel strike and toe off Compression stockings bilateral lower extremities Neurological: Oriented to person, place, time and situation. Thought process intact. Ambulates with antalgic gait Psychiatric: Appropriate mood and affect. Good judgment and insight. Results Reviewed Results Reviewed: 11/2023 x-ray lumbar spine Independently reviewed: Worsening degenerative disc disease. Official radiologist's reading pending. CT/CT abdomen pelvis w IV 10/26/22 OSSEOUS STRUCTURES: No acute or suspicious osseous abnormality. Degenerative changes throughout the spine. Assessment & Plan Assessment & Plan (1) Peripheral neuropathy: Code(s): G62.9 - Polyneuropathy, unspecified Category: Medical (2) Spondylosis without myelopathy or radiculopathy, lumbar region: Code(s): M47.816 - Spondylosis without myelopathy or radiculopathy, lumbar region Category: Medical (3) Bilateral primary osteoarthritis of knee: Code(s): M17.0 - Bilateral primary osteoarthritis of knee Category: Medical (4) Chronic pain syndrome: Code(s): G89.4 - Chronic pain syndrome Category: Medical (5) Disc degeneration, lumbar: Code(s): M51.36 - Other intervertebral disc degeneration, lumbar region Category: Medical (6) Trochanteric bursitis, left hip: Code(s): M70.62 - Trochanteric bursitis, left hip Category: Medical Plan Masspat was reviewed and without concerns. No obvious signs of diversion, abuse or misuse of the opioid medications. Continue with oxycodone 5 mg twice daily as needed. Continue with amitriptyline to 25 mg p.o. daily at bedtime. Patient to follow-up in the office in 4 weeks, sooner if needed. All questions and concerns have been answered and patient agrees with the plan. Medications: Changed From oxycodone Partial Fill upon patient request. 5 mg PO BID 21 days PRN 42 tabs 0RF pain M17.0 - Bilateral primary osteoarthritis of knee, M96.1 - Postlaminectomy syndrome, not elsewhere classified, Z79.891 - computer terminal operator (current) use of opiate analgesic To oxycodone Partial Fill upon patient request. 5 mg PO BID PRN 56 tabs 0RF pain 28 days M17.0 - Bilateral primary osteoarthritis of knee, M96.1 - Postlaminectomy syndrome, not elsewhere classified, Z79.891 - computer terminal operator (current) use of opiate analgesic Coding Level of Care Code Est Pt Level 4 (21083) Complex EM visit Add On G2211 Diagnoses Peripheral neuropathy G62.9 Spondylosis without myelopathy or radiculopathy, lumbar region M47.816 Bilateral primary osteoarthritis of knee M17.0 Chronic pain syndrome G89.4 Disc degeneration, lumbar M51.36 Trochanteric bursitis, left hip M70.62
[2024-02-27 13:00] VITALS: BP 126/80; PULSE 108; O2SAT 97; BMI 28.0
--- OUTSIDE RECORDS SUMMARY | 2024-02-28 02:17 | XMS_ITS | Patient Health Record ---
Author Organization [facility] Address [address] [place] [address] Care Team Providers Care Top Collar Baster Name Role Phone Alma IVORY, Debbi Garcia Primary Care Provider Un available Emanuel Crawford Unavailable [phone] Allergies Allergen (clinical drug ingredient) Drug/Non Drug Allergy documented on EMR Reaction Allergy Type Onset Date Status ibuprofen Advil Unknown Drug Allergy Active aspirin Aspirin Unknown Drug Allergy Active Non-steroidal anti-inflammatory agent (FN) NSAIDs stomach pain Drug Allergy Active Reason For Referral No Information Medications Medication SIG (Take, Route, Frequency, Duration) Notes Start Date End Date Status Voltaren 1 % as directed Externally Active PriLOSEC OTC 20 MG 1 tablet Orally Once a day for 30 day(s) Active Soma Not-Taking oxyCODONE HCl 5 MG 1 tablet as needed Orally every 6 hrs PRN Active traZODone HCl 100 MG 1 tablet at bedtime Orally Once a day for 30 day(s) Active Vicodin 5-300 MG Orally Not -Taking Lipitor 20 MG 1 tablet Orally Once a day Not-Taking Atorvastatin Calcium 20 MG 1 tablet Oral ly Once a day for 30 day(s) Active Vitamin D 2000 UNIT Orally Active Evista Not-Taking Hyoscyamine Sulfate 0.125 MG/5ML 5 ml as needed Orally every 4 hrs Active Lyrica 75 MG Orally Not-Long ing Premarin 1.25 MG Once a day No t-Taking Methocarbamol 750 MG 1 tablet Orally every 4 hrs for 30 day(s) Not-Taking Elavil 10mg Active Colace 100 MG 2 capsules Orally once daily Active Dulcolax 10 MG Rectal Activ e Walking Boot/Pneumatic As directed Wear Daily for Until further notice Active Estrace 2 MG 1 tablet Orally Daily for Three Weeks, 1 Week off for 30 day(s) Active hydroCHLOROthiazide 12.5 MG Orally Active Estradiol Not-Taking Immunizations Vaccine Route Administration Date Status Comme nts COVID-19 [employer] Unknown 01/14/2021 Administered 1st 06/25/2020 Social History Tobacco Use: Social History Observation Description Date Details (start date - stop date) Former Smoker NA - NA Tobacco Use/Smoking Question Answer Notes Are you a: former smoker Additional Findings: Tobacco Non-User Current no n-smoker Alcohol Screen Question Answer Notes Did you have a drink containing alcohol in the p ast year? No Points 0 Interpretation Negative Tobacco use other than smoking: Question Answer Notes Are you an other tobacco user? 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 ; Other hammer toe(s) (acquired), left foot M20.42 and Peroneal tendinitis of left lower extremity M76.[address] [address] 08/22/2023 Emanuel Crawford Pain in left foot M79.672 ; Primary osteoarthritis, left ankle and foot M19.072 ; Metatarsalgia, left foot M77.42 ; 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 ; Other hammer toe(s) (acquired), left foot M20.42 ; Peroneal tendinitis of left lower extremity M76.72 and Hallux valgus (acquired), left foot M20.[address] [address] 11/29/2023 Emanuel Crawford Pain in left foot M79.672 ; Primary osteoarthritis, left ankle and foot M19.072 ; Metatarsalgia, left foot M77.42 ; 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 ; Other hammer toe(s) (acquired), left foot M20.42 ; Peroneal tendinitis of left lower extremity M76.72 ; Hallux valgus (acquired), left foot M20.12 and Lymphedema I89.0 Assessments Encounter Date Diagnosis (ICD Code) Assessment Notes Treatment Notes Treatment Clinical Notes Section Notes 03/08/2023 Pain in left foot (ICD-10 - M79.672) 03/08/2023 Primary osteoarthritis, left ankle and foot (ICD-10 - M19.072) 08/22/2023 Pain in left foot (ICD-10 - M79.672) 08/22/2023 Primary osteoarthritis, left ankle and foot (ICD-10 - M19.072) 11/29/2023 Pain in left foot (ICD-10 - M79.672) 11/29/2023 Primary osteoarthritis, left ankle and foot (ICD-10 - M19.072) 11/29/2023 Metatarsalgia, left foot (ICD-10 - M77.42) 08/22/2023 Metatarsalgia, left foot (ICD-10 - M77.42) 03/08/2023 Metatarsalgia, left foot (ICD-10 - M77.42) 03/08/2023 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) 08/22/2023 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) 11/29/2023 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) 11/29/2023 Other hammer toe(s) (acquired), left foot (ICD-10 - M20.42) 08/22/2023 Other hammer toe(s) (acquired), left foot (ICD-10 - M20.42) 03/08/2023 Other hammer toe(s) (acquired), left foot (ICD-10 - M20.42) 03/08/2023 Peroneal tendinitis of left lower extremity (ICD-10 - M76.72) 08/22/2023 Peroneal tendinitis of left lower extremity (ICD-10 - M76.72) 11/29/2023 Peroneal tendinitis of left lower extremity (ICD-10 - M76.72) 11/29/2023 Hallux valgus (acquired), left foot (ICD-10 - M20.12) 08/22/2023 Hallux valgus (acquired), left foot (ICD-10 - M20.12) 11/29/2023 Lymphedema (ICD-10 - I89.0) Plan Of Treatment Pending Test Test Name Order Date X ray : Foot, right 2V 09/05/2011 X ray : Foot, left 3V 08/05/2018 X ray : Foot, left 3V 06/01/202112895, J0702- INJECT TENDON ORIGIN/INSER T 12/27/2022, J0702- INJECT or DRAIN, JOINT/BUR SA 03/08/2023, A2182-IRBNT/INJECT, JOINT/BURSA 0 10/16/2018 X ray : Ankle, right 3V 09/05/2011 Next Appt Details Provider Name:Ratna boyd, 03/20/2024 09:00:00 AM, [address] [place] [address], [id number], Insurance Providers Payer Name Payer Address Payer Phone Subscriber Number Group Number Insured Name Patient Relationship to Insured Coverage Start Date Coverage End Date Medicare [facility] [address] [place] [address] [id number] Leandra Galvez Self - patient is the insured [employer] [address] [place] [address] [id number] Leandra Galvez Self - patient is the insured Medical (General) History Medical History History ICD Code neuropathy measles chicken pox Arthritis Back,Hip,and Knee pain Foreign Body 728.82 Ankle Sprain 845.00 Arthralgia 719.40 Arthritis - Degenerative 719.97 Pain in Limb 729.5 Calcaneal spur 726.73 Surgical History Surgery Date(Month/Year) left foot delio bunion 2009 hysterectomy 2009 bladder removal 1989 Laminectomy left sciatica 2004 tonsillectomy 1971 lap band insertion 2004 cystocele repair 2012 Right shoulder arthroscopy 1989 right thumb arthroscopy 2014 left thumb arthroscopy 2016 Appendectomy 09/01/2013 breast reduction and abdominoplasty 11/11 Pain Stimulator removed- 3 days [facility] 08/28/2018
--- OUTSIDE RECORDS SUMMARY | 2024-02-28 02:17 | XMS_ITS ---
Author Organization [facility] Address [address] [place] [address] Care Team Providers Care Sourcing Consultant Name Role Phone Alma IVORY, Debbi Garcia Primary Care Provider Un available Emanuel Crawford Unavailable [phone] Allergies Allergen (clinical drug ingredient) Drug/Non Drug Allergy documented on EMR Reaction Allergy Type Onset Date Status ibuprofen Advil Unknown Drug Allergy Active aspirin Aspirin Unknown Drug Allergy Active Non-steroidal anti-inflammatory agent (FN) NSAIDs stomach pain Drug Allergy Active REASON FOR VISIT Last Visit PCP 08/17/2020, PCP - 10/13/2022 Medications Medication SIG (Take, Route, Frequency, Duration) Notes Start Date End Date Status Vicodin 5-300 MG Orally Act radha Vitamin D 2000 UNIT Orally Active PriLOSEC OTC 20 MG 1 tablet Orally Once a day for 30 day(s) Active traZODone HCl 100 MG 1 tablet at bedtime Orally Once a day for 30 day(s) Active Methocarbamol 750 MG 1 tablet Orally every 4 hrs for 30 day(s) Active Lyrica 75 MG Orally Active hydroCHLOROthiazide 12.5 MG Orally Active Hyoscyamine Sulfate 0.125 MG/5ML 5 ml as needed Orally every 4 hrs Active Dulcolax 10 MG Rectal Activ e Estrace 2 MG 1 tablet Orally Daily for Three Weeks, 1 Week off for 30 day(s) Active Lipitor 20 MG 1 tablet Orally Once a day Not-Taking Evista Not-Taking Atorvastatin Calcium 20 MG 1 tablet Oral ly Once a day for 30 day(s) Active Colace 100 MG 2 capsules Orally once daily Active Voltaren 1 % as directed Externally Active Walking Boot/Pneumatic As directed Wear Daily for Until further notice Active Premarin 1.25 MG Once a day No t-Taking Soma Not-Taking Estradiol Not-Taking Social History Tobacco Use: Social History Observation [...] Are you an other tobacco user? No Vital Signs Height 5ft 2in in 03/08/2023 Weight 180 lbs 03/08/2023 BMI 32.92 kg/m2 03/08/2023 Blood pressure systolic 124 mm Hg 03/08/20 23 Blood pressure diastolic 68 mm Hg 023 Procedures Procedure Date Ordered Date Performed Result Body Sit e , J0702- INJECT or DRAI N, JOINT/BURSA 03/08/2023 N/A Encounters Encounter Location Date Provider Diagnosis [facility] [address] [address] 03/08/2023 Emanuel Crawford Pain in left foot M79.672 ; Primary osteoarthritis, left ankle and foot M19.072 ; Metatarsalgia, left foot M77.42 ; 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 ; Other hammer toe(s) (acquired), left foot M20.42 and Peroneal tendinitis of left lower extremity M76.72 Assessments Encounter Date Diagnosis (ICD Code) Assessment Notes Treatment Notes Treatment Clinical Notes Section Notes 03/08/2023 Pain in left foot (ICD-10 - M79.672) 03/08/2023 Primary osteoarthritis, left ankle and foot (ICD-10 - M19.072) 03/08/2023 Metatarsalgia, left foot (ICD-10 - M77.42) 03/08/2023 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) 03/08/2023 Other hammer toe(s) (acquired), left foot (ICD-10 - M20.42) 03/08/2023 Peroneal tendinitis of left lower extremity (ICD-10 - M76.72) Plan Of Treatment Medication Medication Name Sig Start Date Stop Date Notes Voltaren 1 % as directed Externally Pending Test Test Name Order Date - INJECT or DRAIN, JOINT/BUR SA 03/08/2023 Next Appt Details Follow Up: prn, Reason: Provider Name:Ratna boyd, 03/20/2024 09:00:00 AM, [address] [place] [address], [id number], Procedure Notes * Category Sub-Category Detail Notes Injection Tendon Origin/insertion 701 Injection - Tendon Origin/Insertion w/ mixture of Celestone Soluspan 3mg and 1cc 1 percent Xylocaine Plain anes. utilizing aseptic technique. The patient tolerated the procedure well. A dry sterile dressing was applied. Post injection instructions were dispensed, verbally discussed, and confirmed understood by the patient. I explained that a steroid and local anesthetic injections are administered to relieve pain and inflammation and thereby meant to improve function. I explained the possible complications including but not limited to signs/symptoms of steroid flare, infection, bruising, atrophy, discoloration of skin, change/deviation in toe position, and that additional injections may be necessary, Patient relates post-procedural pain assessment improved at ( 0-1) out of 10, LEFT 5th mt base at peroneal insertion Med: Joint,Bursa (Sinus Tarsi,AJ) Injection # Med/Ankle joint bursa/capsule 1cc 1% Xylo.pl + 3mg Celestone Soluspan utilizing aseptic technique. The patient tolerated the procedure well. A dry sterile dressing was applied. Post injection instructions were dispensed, verbally discussed, and confirmed understood by the patient. I explained that a steroid and local anesthetic injection usually decreases pain and inflammation. I explained the possible complications including but not limited to signs/symptoms of steroid flare, change/deviation in toe position, infection, bruising, atrophy, discoloration of skin, additional injections may be necessary, LEFT ankle --AL aspect Progress Notes * Leandra ESPINOZA ADOB: [birth year] (72 yo F)Acc No.[id number]:03/08/2023 Progress Note Patient:?Leandra Espinoza Provider:?Emanuel Crawford DPM :1950???Age:72 Y???Sex:Female D ate:03/08/2023 [facility] Pcp:Wilberto Cook Subjective: * Chief Complaints: * ???Last Visit PCP 08/17/2020C P - 10/13/2022 * HPI: ???Foot Pain:?Nature:?aching, swelling, sharp.?Location?Great toe joint, Top, Midfoot and outside left midfoot--5th mt base.?Duration:?several years.?Onset/Cause:?unknown.?Course:?worse in past week.?Aggrevated:?any pressure, standing, walking, any pressure, standing, walking, exercise.?Treatments:?cortisone injection therapy, improved condition.?Quality/Severity?6, scale 1-10.?Toe pain:?Nature:?aching, tenderness.?Location:?5th toe, Left foot.?Duration:?several years.?Onset/Cause:?unknown.?Course:?improved.?Treatments:?comp stockings.? * ROS:?General/Constitutional:?Nausea?denies.?Vomiting?denies.?Hunger Thirst?denies.?Loss appetite?denies.?Chills?denies.?Fatigue?denies.?Fever?denies.?Night Sweats?denies.?Unexplained weight loss?denies.?Unexplained weight gain?denies.?HEENTM:?Dentures?denies.?Dizziness?denies.?Glasses/contacts?admits.?Retinopathy?de nies.?Blurred/double vision?denies.?TMJ?denies.?Discharge/drainage?denies.?Implants?denies.?Sore throat?denies.?Dental implants?denies.?Hard of hearing ?denies.?Difficulty chewing/swallowing/speaking?denies.?Nose bleeds?denies.?Sore mouth?denies.?Respiratory:?On Oxygen?denies.?Pneumonia/pleurisy?denies.?Bronchitis?denies.?Emphysema?denies.?C oughing?denies.?Cough blood?denies.?Shortness of breath?denies.?Wheezing?denies.?Cardiovascular:?Pacemaker?denies.?MVP?denies.?WPW?denies.?CHF?denies.?Heart attack?denies.?Septal defect?denies.?Rapid beat?denies.?Chest pain ?denies.?Atrial Fib.?denies.?Murmur/Palpitations?denies.?Gastrointestinal:?Hemorrhoids?denies.?Stomach/Abdominal pain?denies.?Dark blood stool?denies.?Irritable bowel ?admits.?Constipation?denies.?Diarrhea?denies.?Hematology:?Swelling?denies.?Clots?denies.?Varicose Veins?denies.?Bruising?denies.?Bleeding problem?denies.?Genitourinary:?Blood urine?denies.?Frequent/Painfu/urination/bladder control?denies.?Kidney stones?denies.?Infection (UTI)?denies.?Nephropathy?denies.?sex trans dis (STD)?denies.?Prostate?denies.?Musculoskeletal:?Hammertoes?denies.?Bunions?denies.?Back Pain?denies.?Muscle Cramps/ Resting?denies.?Muscle cramps / walking?denies.?Generalized aches and pains?denies.?Weakness?denies.?Integ.:?Bowman?denies.?Scars?denies.?Corns/calluses?denies.?Ingrown nails?denies.?Painful nails?denies.?Open Sores?denies.?Rashes?denies.?Neurologic:?Difficulty sleeping?denies.?Brain disorder?denies.?Numbness?denies.?Balance trouble?denies.?Confusion?denies.?Fainting/blackouts?denies.?Tingling?denies.?Tr emors?denies.? * Medical History:? * Surgical History:?left foot delio bunion 2009hysterectomy 2009bladder removal 1989Laminectomy left sciatica 2004tonsillectomy 1971lap band insertion 2005cystocele repair 2013Right shoulder arthroscopy 1990right thumb arthroscopy 2015left thumb arthroscopy 2017Appendectomy 09/01/2013reast reduction and abdominoplasty 11/11/2014Pain Stimulator removed- [address] [facility] 08/28/2018 * Hospitalization/Major Diagno stic Procedure:?Denies Past Hospitalization * Family History:?Mother: dece ased, diabetes, heart attack, high blood pressure.?Father: , arthritis.? * Social History:?Tobacco Use:?Tobacco Use/Smoking?Are you a:?former smoker ?Additional Findings: Tobacco Non-User?Current non-smoker ?Tobacco use other than smoking?Are you an other tobacco user??No ???Drugs/Alcohol:?Drugs?Have you used drugs other than those for medical reasons in the past 12 months??No ?Alcohol Screen?Did you have a drink containing alcohol in the past year??No ?Points?0 ?Interpretation?Negative ???Miscellaneous:?Caffeine: yes, 1 cup per day. ?Children: yes, 2. ?Exercise: yes, walking. ?Marital status: . ?Occupation: retired. * Medications:?TakingAtorvasta tin Calcium 20 MG Tablet 1 tablet Orally Once a dayColace 100 MG Capsule 2 capsules Orally once dailyDulcolax 10 MG Suppository Rectal Estrace 2 MG Tablet 1 tablet Orally Daily for Three Weeks, 1 Week offhydroCHLOROthiazide 12.5 MG Capsule Orally Hyoscyamine Sulfate 0.125 MG/5ML Elixir 5 ml as needed Orally every 4 hrsLyrica 75 MG Capsule Orally Methocarbamol 750 MG Tablet 1 tablet Orally every 4 hrsPriLOSEC OTC 20 MG Tablet Delayed Release 1 tablet Orally Once a daytraZODone HCl 100 MG Tablet 1 tablet at bedtime Orally Once a dayVicodin 5-300 MG Tablet Orally Vitamin D 2000 UNIT Tablet Orally Walking Boot/Pneumatic As directed Wear DailyVoltaren 1 % Gel as directed Externally Taking Atorvastatin Calcium 20 MG Tablet 1 tablet Orally Once a dayTaking Colace 100 MG Capsule 2 capsules Orally once dailyTaking Dulcolax 10 MG Suppository Rectal Taking Estrace 2 MG Tablet 1 tablet Orally Daily for Three Weeks, 1 Week offTaking hydroCHLOROthiazide 12.5 MG Capsule Orally Taking Hyoscyamine Sulfate 0.125 MG/5ML Elixir 5 ml as needed Orally every 4 hrsTaking Lyrica 75 MG Capsule Orally Taking Methocarbamol 750 MG Tablet 1 tablet Orally every 4 hrsTaking PriLOSEC OTC 20 MG Tablet Delayed Release 1 tablet Orally Once a dayTaking traZODone HCl 100 MG Tablet 1 tablet at bedtime Orally Once a dayTaking Vicodin 5-300 MG Tablet Orally Taking Vitamin D 2000 UNIT Tablet Orally Taking Walking Boot/Pneumatic As directed Wear DailyTaking Voltaren 1 % Gel as directed Externally Not-Taking/PRNEstradiol Premarin 1.25 MG Once a daySoma Lipitor 20 MG Tablet 1 tablet Orally Once a dayEvista Medication List reviewed and reconciled with the patientNot-Taking/PRN Estradiol Not-Taking/PRN Premarin 1.25 MG Once a dayNot-Taking/PRN Soma Not-Taking/PRN Lipitor 20 MG Tablet 1 tablet Orally Once a dayNot-Taking/PRN Evista Medication List reviewed and reconciled with the patient * Allergies:?AspirinAdvilNSAID s: stomach painyes[Allergies Verified] Objective: * Vitals:?Ht: 5ft 2in, Wt:180, BMI:32.92, Shoe size: 8.5W, BP:124/68 mm Hg, Ht-cm: 157.48 cm, Wt-k.65 kg. * Examination: ???General Examination: ?GENERAL APPEARANCE:?pleasant, alert, well nourished, well developed, well hydrated, with good attention to hygene/body habitus, and in no acute distress.?ORIENTED:?person,place, and time.?Neurological: ?SENSORY:? Neurological exam demonstrates pop left ankle AL aspect and dorsum and lateral left cuboid.?TINEL'S COMPRESSION:?Negative tarsal tunnel, berhane pedis, and medial calcaneal nerves B/L.?BABINSKI REFLEX:?absent.?Neuroma Pain: ?PALPATION:?No interspace pain noted on palpation.?Vascular: ?DP PULSES:? 1/4, B/L.?PT PULSES:? 1/4, B/L.?CAPILLARY FILL TIME:?3 secs. per digit, B/L.?SKIN TEMPERTURE GRADIENT OF THE LOWER EXTERMITIES:?warm to cool, proximal to distal, B/L.?VARICOSITIES:? present, moderate, nonpainful, B/L.?Dermatologic: ?SKIN FINDINGS:?Skin exam reveals normal texture, elasticity, and tugor. There are no masses. The interspaces are clear, B/L .?Orthopedic: ?MUSCLE STRENGTH:?5/5 all groups in a symmetrical fashion , B/L.?GAIT ABNORMALITY:?pronated, abducted, B/L.?FOOTWEAR:? OT were inspected and noted to be in good condition.? Assessment: * Assessment: 1.?Pain in left foot - M79.6 72 (Primary)?2.?Primary osteoarthritis, left ankle and foot - M19.072?3.?Metatarsalgia, left foot - M77.42?4.?Metatarsus adductus of left foot - Q66.22?5.?Other hammer toe(s) (acquired), left foot - M20.42?6.?Peroneal tendinitis of left lower extremity - M76.72? Plan: * Treatment: 2.?Primary osteoarthritis, l eft ankle and foot?Procedure: - INJECT or DRAIN, JOINT/BURSA * Procedures:?Injection:?Tendon Origin/insertion? Injection - Tendon Origin/Insertion w/ mixture of Celestone Soluspan 3mg and 1cc 1 percent Xylocaine Plain anes. utilizing aseptic technique. The patient tolerated the procedure well. A dry sterile dressing was applied. Post injection instructions were dispensed, verbally discussed, and confirmed understood by the patient. I explained that a steroid and local anesthetic injections are administered to relieve pain and inflammation and thereby meant to improve function. I explained the possible complications including but not limited to signs/symptoms of steroid flare, infection, bruising, atrophy, discoloration of skin, change/deviation in toe position, and that additional injections may be necessary, Patient relates post-procedural pain assessment improved at ( 0-1) out of 10, LEFT 5th mt base at peroneal insertion.?Med: Joint,Bursa (Sinus Tarsi,AJ)? Injection # Med/Ankle joint bursa/capsule 1cc 1% Xylo.pl + 3mg Celestone Soluspan utilizing aseptic technique. The patient tolerated the procedure well. A dry sterile dressing was applied. Post injection instructions were dispensed, verbally discussed, and confirmed understood by the patient. I explained that a steroid and local anesthetic injection usually decreases pain and inflammation. I explained the possible complications including but not limited to signs/symptoms of steroid flare, change/deviation in toe position, infection, bruising, atrophy, discoloration of skin, additional injections may be necessary, LEFT ankle --AL aspect .? * Procedure Codes:?02368 INJEC T TENDON ORIGIN/INSERT, Modifiers: XS J0702 INJ BETAMETHSN ACTAT&SOD PHOSPH-3MG, Units: 2.00 DRAIN/INJECT, JOINT/BURSA, Modifiers: XS * Follow Up:?prn * Images: * Sign off status: Completed true * Provider:?Emanuel Crawford DPM Date:? 023 Generated for Yissel patel/Luca/eTransmitting on:?02/28/2024 02:17 AM EST History and Physical Notes * HPI (History of Present Illness) Category Sub-Category Detail Notes Category Not es Toe pain Nature: aching, tenderness Location: 5th toe, Left foot Duration: several years Onset/Cause: unknown Course: improved Treatments: comp stockings Foot Pain Aggrevated: any pressure, st anding, walking, any pressure, standing, walking, exercise Onset/Cause: unknown Course: worse in past week Duration: several years Nature: aching, swelling, sh ranjith Treatments: cortisone injection therapy, improved condition Quality/Severity 6, scale 1-10 Location Great toe joint, Top , Midfoot and outside left midfoot--5th mt base Examination Category Sub-Category Detail Notes Category Not es Neuroma Pain PALPATION: No interspace pain noted on palpation Neurological SENSORY: Neurological exa m demonstrates pop left ankle AL aspect and dorsum and lateral left cuboid BABINSKI REFLEX: absent TINEL'S COMPRESSION: Negative tarsal deny audrey, berhane pedis, and medial calcaneal nerves B/L Dermatologic SKIN FINDINGS: Skin exam reveal s normal texture, elasticity, and tugor. There are no masses. The interspaces are clear, B/L Orthopedic GAIT ABNORMALITY: pronated, abducted, B/L FOOTWEAR: OT were inspected an d noted to be in good condition MUSCLE STRENGTH: 5/5 all groups in a symmetrical fashion , B/L General Examination GENERAL APPEARANCE: pleasant , alert, well nourished, well developed, well hydrated, with good attention to hygene/body habitus, and in no acute distress ORIENTED: person,place, and ti me Vascular DP PULSES(B): 03/22, B/L PT PULSES(B): 03/22, B/L CAPILLARY FILL TIME: 3 secs. per digit, B/L TEMPERTURE GRADIENT(C): warm to cool, pr oximal to distal, B/L VARICOSITIES: present, moderate, n onpainful, B/L
--- OUTSIDE RECORDS SUMMARY | 2024-02-28 02:17 | XMS_ITS ---
[facility] Organization [facility] Address [address] [facility] [place] [address] Care Team Providers Care Chief Operator Name Role Phone Alma IVORY, Debbi Garcia Primary Care Provider Un available Emanuel Crawford Unavailable [phone] Allergies Allergen (clinical drug ingredient) Drug/Non Drug Allergy documented on EMR Reaction Allergy Type Onset Date Status ibuprofen Advil Unknown Drug Allergy Active aspirin Aspirin Unknown Drug Allergy Active Non-steroidal anti-inflammatory agent (FN) NSAIDs stomach pain Drug Allergy Active REASON FOR VISIT Last Visit PCP: 03/2023 Medications Medication SIG (Take, Route, Frequency, Duration) Notes Start Date End Date Status Soma Not-Taking Lipitor 20 MG 1 tablet Orally Once a day Not-Taking Evista Not-Taking Premarin 1.25 MG Once a day No t-Taking Voltaren 1 % as directed Externally Active traZODone HCl 100 MG 1 tablet at bedtime Orally Once a day for 30 day(s) Active Vicodin 5-300 MG Orally Act radha Vitamin D 2000 UNIT Orally Active Walking Boot/Pneumatic As directed Wear Daily for Until further notice Active Estradiol Not-Taking PriLOSEC OTC 20 MG 1 tablet Orally Once a day for 30 day(s) Active hydroCHLOROthiazide 12.5 MG Orally Active Hyoscyamine Sulfate 0.125 MG/5ML 5 ml as needed Orally every 4 hrs Active Lyrica 75 MG Orally Active Methocarbamol 750 MG 1 tablet Orally every 4 hrs for 30 day(s) Active Atorvastatin Calcium 20 MG 1 tablet Oral ly Once a day for 30 day(s) Active Colace 100 MG 2 capsules Orally once daily Active Dulcolax 10 MG Rectal Activ e Estrace 2 MG 1 tablet Orally Daily for Three Weeks, 1 Week off for 30 day(s) Active Social History Tobacco Use: Social History Observation [...] Problem Status W/U Status Risk Notes Problem Acquired hallux valgus (85729111) Hallux valgus (acquired), left foot (M20.12) Active confirmed Vital Signs Height 5ft 2in in 08/22/2023 Weight 180 lbs 08/22/2023 BMI 32.92 kg/m2 08/22/2023 Blood pressure systolic 124 mm Hg 08/22/19 24 Blood pressure diastolic 68 mm Hg 024 Encounters Encounter Location Date Provider Diagnosis [facility] [address] [place] [address] 08/22/2023 Emanuel Crawford Pain in left foot M79.672 ; Primary osteoarthritis, left ankle and foot M19.072 ; Metatarsalgia, left foot M77.42 ; 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 ; Other hammer toe(s) (acquired), left foot M20.42 ; Peroneal tendinitis of left lower extremity M76.72 and Hallux valgus (acquired), left foot M20.12 Assessments Encounter Date Diagnosis (ICD Code) Assessment Notes Treatment Notes Treatment Clinical Notes Section Notes 08/22/2023 Pain in left foot (ICD-10 - M79.672) 08/22/2023 Primary osteoarthritis, left ankle and foot (ICD-10 - M19.072) 08/22/2023 Metatarsalgia, left foot (ICD-10 - M77.42) 08/22/2023 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) 08/22/2023 Other hammer toe(s) (acquired), left foot (ICD-10 - M20.42) 08/22/2023 Peroneal tendinitis of left lower extremity (ICD-10 - M76.72) 08/22/2023 Hallux valgus (acquired), left foot (ICD-10 - M20.12) Plan Of Treatment Medication Medication Name Sig Start Date Stop Date Notes Voltaren 1 % as directed Externally Next Appt Details Follow Up: prn, Reason: Provider Name:Ratna Lopez deb, 03/20/2024 09:00:00 AM, [address] [place] [address], [id number], Procedure Notes * Category Sub-Category Detail Notes Injection Tendon Origin/insertion , J 0702 Injection - Tendon Origin/Insertion w/ mixture of [...] at peroneal insertion Med: Joint,Bursa (Sinus Tarsi,AJ) , J0702 Injection # Med/Ankle joint bursa/capsule 1cc 1% [...] Leandra ESPINOZA ADOB: [birth year] (72 yo F)Acc No.[id number]:08/22/2023 Progress Note Patient:?Leandra Espinoza Provider:?Emanuel Crawford DPM :1950???Age:72 Y???Sex:Female D ate:08/22/2023 [place] Pcp:Wilberto Cook Subjective: * Chief Complaints: * ???Last Visit PCP: 03/2023 * HPI: ???Foot Pain:?Nature:?aching, swelling, sharp.?Location??outside left midfoot--5th mt base and outside left ankle.?Duration:?several years.?Onset/Cause:?unknown.?Course:?worse in past 3?weeks.?Aggrevated:?any pressure, standing, walking, any pressure, standing, walking, exercise.?Treatments:?cortisone injection therapy, improved condition.?Quality/Severity?9, scale 1-10.?Toe pain:?Nature:?aching.?Location:?Great toe, Left foot.?Duration:?several months.?Onset/Cause:?gradual.?Course:?intermittent.? * ROS:?General/Constitutional:?Nausea?denies.?Vomiting?denies.?Hunger Thirst?denies.?Loss appetite?denies.?Chills?denies.?Fatigue?denies.?Fever?denies.?Night Sweats?denies.?Unexplained weight loss?denies.?Unexplained [...] and abdominoplasty 11/11/2014Pain Stimulator removed- 3 days [facility] 08/28/2018 * Hospitalization/Major Diagno stic Procedure:?Denies Past [...] walking. ?Marital status: . ?Occupation: retired. * Medications:?TakingVoltaren 1 % Gel as directed Externally Atorvastatin Calcium 20 MG Tablet 1 tablet [...] Tablet Orally Walking Boot/Pneumatic As directed Wear DailyTaking Voltaren 1 % Gel as directed Externally Taking [...] Orally Taking Walking Boot/Pneumatic As directed Wear DailyNot-Taking/PRNEstradiol Premarin 1.25 MG Once a daySoma Lipitor [...] * Vitals:?Ht: 5ft 2in, Wt:180, BMI:32.92, Shoe size:8.5W, BP:124/68 mm Hg. * Examination: ???General Examination: ?GENERAL APPEARANCE:?pleasant, alert, well nourished, well developed, well hydrated, with good attention to hygene/body habitus, and in no acute distress.?ORIENTED:?person,place, and time.?Neurological: ?SENSORY:? Neurological exam demonstrates pop left ankle AL aspect and dorsum and lateral left cuboid/5th mt base.?TINEL'S COMPRESSION:?Negative tarsal tunnel, berhane pedis, and medial calcaneal nerves B/L.?BABINSKI REFLEX:?absent.?Neuroma Pain: ?PALPATION:?No interspace pain noted on palpation.?Vascular: ?DP PULSES:? 1/4, B/L.?PT PULSES:? /4, B/L.?CAPILLARY FILL TIME:?3 secs. per digit, B/L.?SKIN [...] M20.42?6.?Peroneal tendinitis of left lower extremity - M76.72?7.?Hallux valgus (acquired), left foot - M20.12? Plan: * Treatment: * Procedures:?Injection:?Tendon Origin/insertion?, J07 Injection - Tendon Origin/Insertion w/ mixture of [...] mt base at peroneal insertion.?Med: Joint,Bursa (Sinus Tarsi,AJ)?, J07 Injection # Med/Ankle joint bursa/capsule 1cc 1% [...] LEFT ankle --AL aspect .? * Procedure Codes:? INJEC T TENDON ORIGIN/INSERT, Modifiers: XS J0702 INJ BETAMETHSN ACTAT&SOD PHOSPH-3MG, Units: 2.00 74579 DRAIN/INJECT, JOINT/BURSA, Modifiers: XS * Preventive Medicine:? ??Counseling:?Discussion:?-13: Office or other outpatient visit for the evaluation and management of an established patient, which required a medically appropriate history and/or examination and LOW level of DECISION MAKING for: 1 STABLE ACUTE UNCOMPLICATED PROBLEM, 2 OR MORE MINOR PROBLEMS, OR 1 STABLE CHRONIC PROBLEM, THAT POSE(S) A LOW RISK FOR MORBIDITY/MORTALITY. The visit on the day of the encounter encompassed interpreting the data and educating the patient as to the nature of their condition, treatment options available according to their individual PMH, meds, allergies, and overall health/living conditions, as well as any potential risks or complications that may occur from a failure to adhere to, and participate in, the recommended course of therapy. The discussion included a complete verbal, and/or written explanation of the examination results, any x-rays taken, the proposed diagnosis, and outline of the treatment plan. A schedule for future care needs was also explained. The patient verbalized an understanding of the instructions at this time and agreed to be an active participant in their treatment. If the patient should think of any questions or concerns after the visit, I have encouraged the patient to call the office.?Metatarsalgea:?I explained to the patient the possible etiologies of their Metatarsalgea Foot pain, including foot type/shoegear/activity level/exercise routine and the risks/benefits of all the different treatment options for pain including: No treatment at all, Rest, Ice, NSAIDs(only if well tolerated after meals), New/supportive Shoegear, Strappings and Tapings, Foot/Ankle AFO Bracing, Stretching exercises, Deep Tissue Massage, Arch support/shoe inserts, Custom orthoses, Topical analgesics including Aspercream/Voltaren gel, Physical Therapy, Cortisone injection therapy, EPAT/ESWT. Advantages and disadvantages of each option were discussed and the patients questions re: shoegear, custom vs prefabricated inserts, activity level, PO vs Topical medications (and their respective potential complications/drug interactions/side effects), and consistency in home treatment regimens for optimal success were answered to their verbally confirmed satisfaction.?Shoe Gear Counseling:?The patient and I reviewed the types of shoes they should be wearing. My recommendation included obtaining a well-fitted shoe with a good supportive, non-foldable nor twistable sole, plenty of toe/room for the forefoot, and proper arch support. Based on todays examination, I recommended the patient look for new shoes, by having their feet professionally measured. We discussed that generally the best time of the day for a shoe fitting is the afternoon. Different shoes types and brands to best match the patients occupation and vocation were discussed. Specific brand selection will be up to the patient, their individual foot condition/deformities, and fit. The patient and I reviewed the standard new shoe break in period by wearing them for a few hours a day while checking for redness or sores as wear time is increased. The patient verbally confirmed to understanding the information discussed.? * Follow Up:?prn * Images: * Sign off status: Completed true * Provider:?Emanuel Crawford DPM Date:? 024 Generated for Yissel patel/Luca/Faheemitting on:?02/28/2024 02:17 AM EST History and Physical Notes * HPI (History of Present Illness) Category Sub-Category Detail Notes Category Not es Toe pain Nature: aching Location: Great toe, Left foot Duration: several months Onset/Cause: gradual Course: intermittent Foot Pain Aggrevated: any pressure, st anding, walking, any pressure, standing, walking, exercise Onset/Cause: unknown Course: worse in past 3 week s Duration: several years Nature: aching, swelling, sh ranjith Treatments: cortisone injection therapy, improved condition Quality/Severity 9, scale 1-10 Location outside left midfoot --5th mt base and outside left ankle Examination Category Sub-Category Detail Notes Category Not es Neuroma Pain PALPATION: No interspace pain noted on palpation Neurological SENSORY: Neurological exa m demonstrates pop left ankle AL aspect and dorsum and lateral left cuboid/5th mt base BABINSKI REFLEX: absent TINEL'S COMPRESSION: Negative tarsal [...] person,place, and ti me Vascular DP PULSES(B): 4, B/L PT PULSES(B): /4, B/L CAPILLARY FILL TIME: 3 secs. per digit, B/L TEMPERTURE GRADIENT(C): warm to cool, pr oximal to distal, B/L VARICOSITIES: present, moderate, n onpainful, B/L
--- OUTSIDE RECORDS SUMMARY | 2024-02-28 02:17 | XMS_ITS | Continuity of Care Document ---
Author Organization [facility] Address [address] [place] [address] Phone Care Team Providers Care Nurse School Name Role Phone Navdeep IVORY, RVT, RPVI, [...] Diagnoses Date Provider Providers Copied on Encounter [facility] WETZEL, [address] [place] [address] Dr Valenzuela [address]Michael [place], [id number], tel:[phone] CVR - [place] - Rachel No Information 4 Navdeep IVORY RVT, CAROL[place] Mike. [address] [address], [facility] [place] [id number] , [place]. tel:[phone] Office/Outpt E&M Established 15 Mins- CT & [place] [facility] MD WETZEL, [address] [place] [address] Dr Valenzuela 1000SuMichael toure [place], [id number], [place] tel:[phone] CVR - [place] - Rachel Lymphedema, not elsewhere classifiedCramp and spasmRestless legs syndrome 4 Navdeep IVORY RVT, [place] Mike. [address] [address], [place], [place], [id number] , [place]. tel:[phone] Referring Provider: Debbi Garcia, [address] [place] [address], [address]. tel:[phone] [facility] MD WETZEL, [address] [place] [address] Dr Valenzuela [address] [place], [id number], [place] tel:[phone] CVR - [facility] Chronic venous hypertension (idiopathic) with other complications of bilateral lower extremity 4 Navdeep IVORY RVT, CRAOLA Mike. [address], [address], [facility] [place], [id number] , [place]. tel:[phone] Referring Provider: Debbi Garcia, [address] [facility] [address] [place], [address]. tel:[phone] [facility], [address] [place] [address] Dr Valenzuela [address]Michael [place], [id number], [place] tel:[phone] CVR - [facility] Encounter for follow-up examination after completed treatment for conditions other than malignant nePain in left leg Apr-0 4 Navdeep IVORY RVT, CAROL[place] Mike. [address], [address], [place], [place], [id number] , [place]. tel:[phone] Referring Provider: Debbi Marquez MD Jose, [address] [place] [address], [address]. tel:[phone] [facility], [address] [place] [address] Dr Valenzuela [address]Michael [place], [id number], [place] tel:[phone] CVR [facility] Varicose veins of left lower extremity with other complications Apr-0 4 Lucila Reese . [address] [address], [place], [place], [id number] , [place]. [phone] Referring Provider: Debbi Marquez MD Jose, [address] [place] [address], [address]. tel:[phone] [facility], [address] [place] [address] Dr Valenzuela [address]Michael [place], [id number], [place] tel:[phone] CVR - [facility] Encounter for follow-up examination after completed treatment for conditions other than malignant nePain in right leg Apr-0 4 Navdeep IVORY RVT, [place] Mike. [address] [address], [place], [place], [id number] , [place]. [phone] Referring Provider: Debbi Garcia, [address] [place] [address], [address]. tel:[phone] [facility], [address] [place] [address] Dr Valenzuela [address]Michael [place], [id number], [place] tel:[phone] CVR - [place] - Rachel Chronic venous hypertension (idiopathic) with inflammation of right lower extremity May-2 4 Navdeep IVORY RVT, CAROLA Mike. [address], [facility], [place], [place], [id number] , [place]. tel:[phone] Referring Provider: Debbi Garcia, [address] [place] [address], [address]. tel:[phone] Office/Outpt E&M Established 25 Mins [facility], [address] [place] [address] Dr Valenzuela [address]Michael [place], [id number], [place] tel:[phone] CVR - [place] - Rachel Chronic venous hypertension (idiopathic) with other complications of bilateral lower extremityPain in left lower legPain in right legPain in left legRestless legs syndromeVenous insufficiency (chronic) (peripheral)Computer Science Teacher mp and spasmLocalized edema May- 4 Navdeep IVORY RVT, CAROLA Mike. [address], [facility], [place], [place], [id number] , [place]. [phone] Referring Provider: Debbi Garcia, [address] [place] [address], [address]. tel:[phone] [facility], [address] [place] [address] Dr Valenzuela [address]Michael [place], [id number], [place] tel:[phone] CVR - [facility] Chronic venous hypertension (idiopathic) with other complications of bilateral lower extremity May- 4 Navdeep IVORY RVT, RPVI Robert. [address], [address], [place], [place], [id number] , [place]. tel:[phone] Referring Provider: Debbi Garcia, [address] [place] [address] [place], [address]. tel:[phone] Office/Outpt E&M Established 15 Mins [facility], [address], [place], [id number], [place] tel:[phone] CVR - [place] - Rachel Body mass index (BMI) 33.0-33.9, adultChronic venous htn w oth comp of bilateral low extrm 3 Jose IVORY FACS RVT RPVI Deangelo Nicole. [address], [address], [place], [address], [place]. tel:[phone] Referring Provider: Deangelo Garcia MD FACS RVT RPVI, [address], [place], [address]. tel:[phone] Family History Family Member Type Diagnosis Age At Onset No Information Payers Payer name Insurance type Covered constitution party ID Authoriza tion(s) Medicare MARCO ANTONIO MEDINA [id number] [facility] [id number] Social History Type Description Quantity Date Captured [...]
--- OUTSIDE RECORDS SUMMARY | 2024-02-28 02:17 | XMS_ITS ---
Author Organization [facility] Address [address] [place] [address] Care Team Providers Care Sales Executive Insurance Name Role Phone Alma IVORY, Debbi Garcia Primary Care Provider Un available Emanuel Crawford Unavailable [phone] Allergies Allergen (clinical drug ingredient) Drug/Non Drug Allergy documented on EMR Reaction Allergy Type Onset Date Status ibuprofen Advil Unknown Drug Allergy Active aspirin Aspirin Unknown Drug Allergy Active Non-steroidal anti-inflammatory agent (FN) NSAIDs stomach pain Drug Allergy Active REASON FOR VISIT Last Visit PCP: 10/01/2023 Medications Medication SIG (Take, Route, Frequency, Duration) Notes Start Date End Date Status Premarin 1.25 MG Once a day No t-Taking Voltaren 1 % as directed Externally Active Soma Not-Taking Lipitor 20 MG 1 tablet Orally Once a day Not-Taking Evista Not-Taking Walking Boot/Pneumatic As directed Wear Daily for Until further notice Active Estradiol Not-Taking traZODone HCl 100 MG 1 tablet at bedtime Orally Once a day for 30 day(s) Active Vicodin 5-300 MG Orally Not -Taking Vitamin D 2000 UNIT Orally Active Hyoscyamine Sulfate 0.125 MG/5ML 5 ml as needed Orally every 4 hrs Active Lyrica 75 MG Orally Not-Long ing Methocarbamol 750 MG 1 tablet Orally every 4 hrs for 30 day(s) Not-Taking hydroCHLOROthiazide 12.5 MG Orally Active PriLOSEC OTC 20 MG 1 tablet Orally Once a day for 30 day(s) Active Colace 100 MG 2 capsules Orally once daily Active Dulcolax 10 MG Rectal Activ e Estrace 2 MG 1 tablet Orally Daily for Three Weeks, 1 Week off for 30 day(s) Active oxyCODONE HCl 5 MG 1 tablet as needed Orally every 6 hrs PRN Active Atorvastatin Calcium 20 MG 1 tablet Oral ly Once a day for 30 day(s) Active Elavil 10mg Active Social History Tobacco Use: Social History [...] Problem Status W/U Status Risk Notes Problem 744008262 Lymphedema (I89.0) Active confirmed Vital Signs Height 5ft 2in in 11/29/2023 Weight 177 lbs 11/29/2023 BMI 32.37 kg/m2 11/29/2023 Blood pressure systolic 124 mm Hg 11/29/19 24 Blood pressure diastolic 68 mm Hg 024 Encounters Encounter Location Date Provider Diagnosis [facility] [place] [address] [place] [address] 11/29/2023 Emanuel Crawford Pain in left foot [...] Treatment Notes Treatment Clinical Notes Section Notes 11/29/2023 Pain in left foot (ICD-10 - M79.672) 11/29/2023 Primary osteoarthritis, left ankle and foot (ICD-10 - M19.072) 11/29/2023 Metatarsalgia, left foot (ICD-10 - M77.42) 11/29/2023 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) 11/29/2023 Other hammer toe(s) (acquired), left foot (ICD-10 - M20.42) 11/29/2023 Peroneal tendinitis of left lower extremity (ICD-10 - M76.72) 11/29/2023 Hallux valgus (acquired), left foot (ICD-10 - M20.12) 11/29/2023 Lymphedema (ICD-10 - I89.0) Plan Of Treatment Medication Medication Name Sig Start Date Stop Date Notes Voltaren 1 % as directed Externally Next Appt Details Follow Up: 3 Months, Reason: Provider Name:Ratna boyd, 03/20/2024 09:00:00 AM, [address] [place] [address], [id number], Procedure Notes * Category Sub-Category Detail Notes Injection Tendon Origin/insertion , J 07 Injection - Tendon Origin/Insertion w/ mixture of [...] Progress Notes * Leandra ESPINOZA ADOB: [birth year] (73 yo F)Acc No.[id number]:11/29/2023 Progress Note Patient:Leandra Morton Provider:?Emanuel Crawford DPM :1950???Age:73 Y???Sex:Female D ate:11/29/2023 Address:[address] [place] [address] [facility] Pcp:Wilberto Cook Subjective: * Chief Complaints: * ???Last Visit PCP: 10/01/2023 * HPI: ???Foot Pain:?Nature:?aching, swelling, sharp.?Location??outside left midfoot--5th mt base and outside left ankle.?Duration:?several years.?Onset/Cause:?unknown.?Course:?worse in past?2?weeks.?Aggrevated:?any pressure, standing, walking, any pressure, standing, walking, exercise; her lymphedema of the legs exacerbate her left foot and ankle pain.?Treatments:?cortisone injection therapy, improved condition.?Quality/Severity?9, scale 1-10.?Toe pain:?Nature:?aching.?Location:?Great [...] and abdominoplasty 11/11/2014Pain Stimulator removed- 3 days [facility] 08/28/2018 * Hospitalization/Major Diagno stic Procedure:?Denies [...] walking. ?Marital status: . ?Occupation: retired. * Medications:?TakingElavil , Notes: 10mgoxyCODONE HCl 5 MG Capsule 1 tablet as needed Orally every 6 hrs, Notes: PRNVoltaren 1 % Gel as directed Externally Atorvastatin Calcium 20 MG Tablet 1 tablet Orally Once a dayColace 100 MG Capsule 2 capsules Orally once dailyDulcolax 10 MG Suppository Rectal Estrace 2 MG Tablet 1 tablet Orally Daily for Three Weeks, 1 Week offhydroCHLOROthiazide 12.5 MG Capsule Orally Hyoscyamine Sulfate 0.125 MG/5ML Elixir 5 ml as needed Orally every 4 hrsPriLOSEC OTC 20 MG Tablet Delayed Release 1 tablet Orally Once a daytraZODone HCl 100 MG Tablet 1 tablet at bedtime Orally Once a dayVitamin D 2000 UNIT Tablet Orally Walking Boot/Pneumatic As directed Wear DailyTaking Elavil , Notes: 10mgTaking oxyCODONE HCl 5 MG Capsule 1 tablet as needed Orally every 6 hrs, Notes: PRNTaking Voltaren 1 % Gel as directed Externally [...] ml as needed Orally every 4 hrsTaking PriLOSEC OTC 20 MG Tablet Delayed Release 1 tablet Orally Once a dayTaking traZODone HCl 100 MG Tablet 1 tablet at bedtime Orally Once a dayTaking Vitamin D 2000 UNIT Tablet Orally Taking Walking Boot/Pneumatic As directed Wear DailyNot-Taking/PRNLyrica 75 MG Capsule Orally Methocarbamol 750 MG Tablet 1 tablet Orally every 4 hrsVicodin 5- 300 MG Tablet Orally Estradiol Premarin 1.25 MG Once a daySoma Lipitor 20 MG Tablet 1 tablet Orally Once a dayEvista Medication List reviewed and reconciled with the patientNot-Taking/PRN Lyrica 75 MG Capsule Orally Not-Taking/PRN Methocarbamol 750 MG Tablet 1 tablet Orally every 4 hrsNot-Taking/PRN Vicodin 5-300 MG Tablet Orally Not-Taking/PRN Estradiol Not-Taking/PRN Premarin 1.25 MG Once a dayNot- Taking/PRN Soma Not-Taking/PRN Lipitor 20 MG Tablet 1 tablet Orally Once a dayNot- Taking/PRN Evista Medication List reviewed and reconciled with the patient * Allergies:?AspirinAdvilNSAID s: stomach painyes[Allergies Verified] Objective: * Vitals:?Ht: 5ft 2in, Wt:177, BMI:32.37, Shoe size:8.5W, BP:124/68 mm Hg. * Examination: [...] LOWER EXTERMITIES:?warm to cool, proximal to distal, B/L.?EDEMA:? 3/4, B/L, Ankle(s), Leg(s).?VARICOSITIES:? present, moderate, nonpainful, B/L.?Dermatologic: ?SKIN FINDINGS:?Skin exam [...] - M76.72?7.?Hallux valgus (acquired), left foot - M20.12?8.?Lymphedema - I89.0? Plan: * Treatment: * Procedures:?Injection:?Tendon Origin/insertion?, J0702 Injection - Tendon Origin/Insertion w/ mixture of [...] base at peroneal insertion.?Med: Joint,Bursa (Sinus Tarsi,AJ)?, J0702 Injection # Med/Ankle joint bursa/capsule 1cc [...] LEFT ankle --AL aspect .? * Procedure Codes:?06735 INJEC T TENDON ORIGIN/INSERT, Modifiers: XS J0702 INJ BETAMETHSN ACTAT&SOD PHOSPH-3MG, Units: 2.00 DRAIN/INJECT, JOINT/BURSA, Modifiers: XS * Preventive Medicine:? [...] have encouraged the patient to call the office--rx for sequential intermittent compression pump to treat her painful lymphedema nikki legs.?Metatarsalgea:?I explained to the patient the possible etiologies [...] success were answered to their verbally confirmed satisfaction.? * Follow Up:?3 Months * Images: * Sign off status: Completed true * Provider:?Emanuel Crawford DPM Date:? 024 Generated for Yissel patel/Luca/eTransmitting on:?02/28/2024 02:17 AM EST History and Physical Notes * HPI (History of Present Illness) Category Sub-Category Detail Notes Category Not es Toe pain Nature: aching Location: Great toe, Left foot Duration: several months Onset/Cause: gradual Course: intermittent Foot Pain Aggrevated: any pressure, st anding, walking, any pressure, standing, walking, exercise; her lymphedema of the legs exacerbate her left foot and ankle pain Onset/Cause: unknown Course: worse in past 2 week s Duration: several years Nature: aching, [...] person,place, and ti me Vascular DP PULSES(B): 1/4, B/L PT PULSES(B): 1/4, B/L CAPILLARY FILL TIME: 3 secs. per digit, B/L TEMPERTURE GRADIENT(C): warm to cool, pr oximal to distal, B/L EDEMA(C): 3/4, B/L, Ankle(s), Leg(s) VARICOSITIES: present, moderate, n onpainful, B/L
== END 2024-02-27 13:27 | disposition home or self-care (01) ==
PROVIDERS: PCP Internal Medicine; Visit Provider Registered Nurse Emergency
DX: G62.9 Polyneuropathy, unspecified (principal); M47.816 Spondylosis without myelopathy or radiculopathy, lumbar region; M17.0 Bilateral primary osteoarthritis of knee; G89.4 Chronic pain syndrome; M51.369 Other intervertebral disc degeneration, lumbar region without mention of lumbar back pain or lower extremity pain; M70.62 Trochanteric bursitis, left hip
CPT/HCPCS: 99214; G2211

== ENCOUNTER → 2024-02-27 12:48 | Outpatient (BNVA) | payer MEDICARE, OTHER, SELFPAY | PROVIDERS: PCP Internal Medicine; Visit Provider Registered Nurse Emergency | DX: M47.816 Spondylosis without myelopathy or radiculopathy, lumbar region (principal); M17.0 Bilateral primary osteoarthritis of knee; M51.369 Other intervertebral disc degeneration, lumbar region without mention of lumbar back pain or lower extremity pain; M70.62 Trochanteric bursitis, left hip; M96.1 Postlaminectomy syndrome, not elsewhere classified; G62.9 Polyneuropathy, unspecified; G89.4 Chronic pain syndrome; Z51.81 Encounter for therapeutic drug level monitoring; Z79.891 Long term (current) use of opiate analgesic | CPT/HCPCS: 99212 ==

== ENCOUNTER 2024-02-29 14:54 | Outpatient (REF) | payer MEDICARE, OTHER, SELFPAY ==
--- NOTE | 2024-02-29 14:57 | EMG_ITS ---
Chief complaint: Bilateral feet and toes are numb. History of lumbar laminectomy. Continues with back pain. Reason for referral: Evaluate for neuropathy Referred by: Nasreen Hernandez NP Procedure done: Bilateral lower extremity NCS/EMG Precautions and/or limitations: Prior lumbar surgery The limb temperature was monitored continuously and remained between 32-36 degrees C during the performance of the NCS. Nerve Conduction Studies Anti Sensory Summary Table ?Stim Site NR Onset (ms) Norm Onset (ms) Peak (ms) Norm Peak (ms) O-P Amp (?V) Norm O-P Amp Site1 Site2 Delta-0 (ms) Dist (cm) Wero (m/s) Norm Wero (m/s) Left Sural Anti Sensory (Lat Mall) Calf ? 2.6 3.4 <4.0 7.5 >5.0 Calf Lat Mall 2.6 14.0 54 Right Sural Anti Sensory (Lat Mall) Calf ? 1.3 3.2 <4.0 6.0 >5.0 Calf Lat Mall 1.3 14.0 108 Motor Summary Table ?Stim Site NR Onset (ms) Norm Onset (ms) O-P Amp (mV) Norm O-P Amp iAmp (mV) Amp (1st) (%) Site1 Site2 Delta-0 (ms) Dist (cm) Wero (m/s) Norm Wero (m/s) Right Peroneal Motor (Ext Dig Brev) Ankle NR <4.0 >2.5 Ankle Ext Dig Brev 0.0 B Fib NR B Fib Ankle 0.0 >40 Poplt NR Poplt B Fib 0.0 >40 Left Peroneal TA Motor (Tib Ant) Fib Head ? 3.0 <4.2 2.7 3.1 100.0 Fib Head Tib Ant 3.0 0.0 Poplit ? 3.6 <5.7 2.7 3.2 100.0 Poplit Fib Head 0.6 6.0 100 >40.5 Right Peroneal TA Motor (Tib Ant) Fib Head ? 3.3 <4.2 2.1 2.4 100.0 Fib Head Tib Ant 3.3 0.0 Poplit ? 3.6 <5.7 2.2 2.6 104.8 Poplit Fib Head 0.3 5.0 167 >40.5 Left Tibial Motor (Abd Edouard Brev) Ankle ? 3.4 <5 5.2 >2.5 6.0 100.0 Ankle Abd Edouard Brev 3.4 0.0 Knee ? 11.1 6.3 7.0 121.2 Knee Ankle 7.7 39.0 51 >40 Right Tibial Motor (Abd Edouard Brev) Ankle ? 3.6 <5 5.8 >2.5 7.6 100.0 Ankle Abd Edouard Brev 3.6 0.0 Knee ? 12.1 4.8 6.2 82.8 Knee Ankle 8.5 39.0 46 >40 EMG ?Side Muscle Nerve Root Ins Act Fibs Psw Amp Dur Poly Recrt Int Pat Comment Right AbdHallucis MedPlantar S1-2 Nml Nml Nml Nml Nml 0 Nml Complete Right AntTibialis Dp Br Peron L4-5 Nml Nml Nml Nml Nml 0 Nml Complete Right PostTibialis Tibial L5, S1 Nml Nml Nml Nml Nml 0 Nml Complete Right MedGastroc Tibial S1-2 Nml Nml Nml Nml Nml 0 Nml Complete Right VastusMed Femoral L2-4 Nml Nml Nml Nml Nml 0 Nml Complete Left AbdHallucis MedPlantar S1-2 Nml Nml Nml Nml Nml 0 Nml Complete Left AntTibialis Dp Br Peron L4-5 Nml Nml Nml Nml Nml 0 Nml Complete Left PostTibialis Tibial L5, S1 Nml Nml Nml Nml Nml 0 Nml Complete Left MedGastroc Tibial S1-2 Nml Nml Nml Nml Nml 0 Nml Complete Left VastusMed Femoral L2-4 Nml Nml Nml Nml Nml 0 Nml Complete FINDINGS: Noted flat EDB muscles, which could be from shoes. Peroneal nerves tested recording TA muscle instead, no conduction block across fibular neck. All motor and sensory nerves tested showed normal latencies, amplitudes and conduction velocities. Concentric needle EMG was performed in selected muscles of the bilateral lower extremity. Study did not reveal signs of electric abnormalities as shown in the table above. IMPRESSION: 1. This is a normal study. 2. There is no electrodiagnostic evidence for peroneal neuropathy, tibial neuropathy, lumbosacral plexopathy, lumbar radiculopathy, or peripheral neuropathy. Thank you for your kind referral. Galilea Hays MD, TATO Board Certified, [place] Board [employer] and Rehabilitation (ABPMR) Board Certified, [place] Board of Electrodiagnostic Medicine (ABEM) CODIN 86352 x 2 [facility]
--- OUTSIDE RECORDS SUMMARY | 2024-02-29 14:57 | XMS_ITS ---
Author Organization [facility] Address [address] [place] [address] Care Team Providers Care Patternmaker Plastics Name Role Phone Alma IVORY, Debbi Garcia Primary Care Provider Un available Ratna Chua Unavailable [phone] Emanuel Crawford Unavailable [phone] Allergies Allergen (clinical drug ingredient) Drug/Non Drug [...] Problem Status W/U Status Risk Notes Problem [id number] Lymphedema (I89.0) Active confirmed Vital Signs Height 5ft 2in in 11/29/2023 Weight 177 lbs 11/29/2023 BMI 32.37 kg/m2 11/29/2023 Blood pressure systolic 124 mm Hg 11/29/19 24 Blood pressure diastolic 68 mm Hg 024 Encounters Encounter Location Date Provider Diagnosis [facility] [place] [address] [place] [address] 11/29/2023 Emanuel Crawford Pain in left foot [...] Follow Up: 3 Months, Reason: Provider Name:Ratna Lopez deb, 03/20/2024 09:00:00 AM, [address] [place] [address], [phone], Procedure Notes * Category Sub-Category Detail Notes Injection Tendon Origin/insertion 44421, J 0702 Injection - Tendon Origin/Insertion w/ [...] at peroneal insertion Med: Joint,Bursa (Sinus Tarsi,AJ) 32209, J0702 Injection # Med/Ankle joint bursa/capsule 1cc [...] Leandra ESPINOZA ADOB: [birth year] (73 yo F)Acc No.[id number]:11/29/2023 Progress Note Patient:?Leandra Espinoza Provider:?Emanuel Crawford DPM :1950???Age:73 Y???Sex:Female D ate:11/29/2023 [facility] Pcp:Wilberto Cook Subjective: * Chief Complaints: * [...] and abdominoplasty 11/11/2014Pain Stimulator removed- 3 days [facility] 08/28/2018 * Hospitalization/Major Diagno stic [...] on palpation.?Vascular: ?DP PULSES:? 1/4, B/L.?PT PULSES:? 4, B/L.?CAPILLARY FILL TIME:?3 secs. per digit, B/L.?SKIN [...] - I89.0? Plan: * Treatment: * Procedures:?Injection:?Tendon Origin/insertion?38955, J0702 Injection - Tendon Origin/Insertion w/ mixture [...] LEFT ankle --AL aspect .? * Procedure Codes:?61948 INJEC T TENDON ORIGIN/INSERT, Modifiers: XS J0702 [...] DPM Date:? 024 Generated for Yissel patel/Luca/Faheemitting on:?02/29/2024 02:57 PM EST History and Physical Notes * HPI [...]
--- OUTSIDE RECORDS SUMMARY | 2024-02-29 14:57 | XMS_ITS ---
Author Organization [facility] Address [address] [place] [address] Care Team Providers Care Tobacco Roller Name Role Phone Alma IVORY, Debbi Garcia Primary Care Provider Un available Ratna Chua Unavailable [phone] Emanuel Crawford Unavailable [phone] Allergies Allergen (clinical drug ingredient) Drug/Non Drug [...] Status Risk Notes Problem Acquired hallux valgus (85460322) Hallux valgus (acquired), left foot (M20.12) Active confirmed Vital Signs Height 5ft 2in in 08/22/2023 Weight 180 lbs 08/22/2023 BMI 32.92 kg/m2 08/22/2023 Blood pressure systolic 124 mm Hg 08/22/19 24 Blood pressure diastolic 68 mm Hg 024 Encounters Encounter Location Date Provider Diagnosis [facility] [place] [address] [place] [address] 08/22/2023 Emanuel Crawford Pain in left foot [...] Provider Name:Ratna Lopez deb, 03/20/2024 09:00:00 AM, [address] [place] [address], [address], Procedure Notes * Category Sub-Category Detail Notes Injection Tendon Origin/insertion , J 701 Injection - Tendon Origin/Insertion w/ mixture [...] peroneal insertion Med: Joint,Bursa (Sinus Tarsi,AJ) , J07 Injection # Med/Ankle joint bursa/capsule 1cc [...] Leandra ESPINOZA ADOB: [birth year] (72 yo F)Acc No.[id number]:08/22/2023 Progress Note Patient:?Leandra Espinoza Provider:?Emanuel Crawford DPM :1950???Age:72 Y???Sex:Female D ate:08/22/2023 Address: [id number] Pcp:Wilberto Cook Subjective: * Chief Complaints: * [...] abdominoplasty 11/11/2014Pain Stimulator removed- 3 days [facility] 08/28/2018 * Hospitalization/Major Diagno stic [...] LEFT ankle --AL aspect .? * Procedure Codes:?18317 INJEC T TENDON ORIGIN/INSERT, Modifiers: XS J0702 INJ BETAMETHSN ACTAT&SOD PHOSPH-3MG, Units: 2.00 59912 DRAIN/INJECT, JOINT/BURSA, Modifiers: XS * Preventive Medicine:? [...] Vascular DP PULSES(B): 1/4, B/L PT PULSES(B): /4, B/L CAPILLARY FILL TIME: 3 secs. per digit, B/L TEMPERTURE GRADIENT(C): warm to cool, pr oximal to distal, B/L VARICOSITIES: present, moderate, n onpainful, B/L
--- OUTSIDE RECORDS SUMMARY | 2024-02-29 14:58 | XMS_ITS | Continuity of Care Document ---
Author Organization [facility] Address [address] [place] [address] Phone Care Team Providers Care [employer] Division Manager Name Role Phone Navdeep IVORY, RVT, RPVI, [...] Diagnoses Date Provider Providers Copied on Encounter [facility] MD WETZEL, [address] [place] [address] Dr Valenzuela [address]Michael [place], [id number], tel:[phone] [facility] - [place] No Information 4 Navdeep IVORY RVT, CAROLA Mike. [address] [address], [facility] [place], [id number] , [place]. tel:[phone] Office/Outpt E&M Established 15 Mins- [place] & [place] [facility] MD WETZEL, [address] [place] [address] Dr Valenzuela 1000SuMichael toure [place], [id number], [place] tel:[phone] [facility] - [place] Lymphedema, not elsewhere classifiedCramp and spasmRestless legs syndrome 4 Navdeep IVORY RVT, CAROLA Mike. [address] [address], [place], [place], [id number] , [place]. tel:[phone] Referring Provider: Debbi Garcia, [address] [place] [address], [address]. tel:[phone] [facility] MD WETZEL, [address] [place] [address] Dr Valenzuela [address] [place] Sanchez [place], [id number], [place] tel:[phone] CVR - [facility] Chronic venous hypertension (idiopathic) with other complications of bilateral lower extremity 4 Navdeep IVORY RVT, CAROLA Mike. [address] [facility] [address] [facility], [address], [facility] [place], [id number] , [place]. tel:[phone] Referring Provider: Debbi Garcia, [address] [facility] [address] [place], [address]. tel:[phone] [facility], [address] [place] [address] Dr Valenzuela [address]Michael [place], [id number], [place] tel:[phone] CVR - [facility] Encounter for follow-up examination after completed treatment for conditions other than malignant nePain in left leg Apr-0 4 Navdeep IVORY RVT, CAROLA Mike. [address] [facility], [address], [place], [place], [id number] , [place]. tel:[phone] Referring Provider: Debbi Marquez MD Jose, [address] [place] [address], [address]. tel:[phone] [facility], [address] [place] [address] Dr Valenzuela [address]Michael [place], [id number], [place] tel:[phone] CVR [facility] Varicose veins of left lower extremity with other complications Apr-0 4 Lucila Reese . [address] [address], [place], [place], [id number] , [place]. [phone] Referring Provider: Debbi Marquez MD Jose, [address] [place] [address], [address]. tel:[phone] [facility], [address] [place] [address] Dr Valenzuela [address]Michael [place], [id number], [place] tel:[phone] CVR - [facility] Encounter for follow-up examination after completed treatment for conditions other than malignant nePain in right leg Apr-0 4 Navdeep IVORY RVT, CAROLA Mike. [address] [address], [place], [place], [id number] , [place]. [phone] Referring Provider: Debbi Garcia, [address] [place] [address], [address]. tel:[phone] [facility], [address] [place] [address] Dr Valenzuela [address]Michael [place], [id number], [place] tel:[phone] CVR - [place] [facility] [place] Chronic venous hypertension (idiopathic) with inflammation of right lower extremity May-2 4 Navdeep IVORY RVT, CAROLA Mike. [address] [facility], [facility] [address], [place], [place], [id number] , [place]. tel:[phone] Referring Provider: Debbi Garcia, [address] [place] [address], [address]. tel:[phone] Office/Outpt E&M Established 25 Mins [facility], [address] [place] [address] Dr Valenzuela [address]Michael [place], [id number], [place] tel:[phone] CVR - [place] [facility] [place] Chronic venous hypertension (idiopathic) with other complications of bilateral lower extremityPain in left lower legPain in right legPain in left legRestless legs syndromeVenous insufficiency (chronic) (peripheral)Machine Erector mp and spasmLocalized edema May- 4 Navdeep IVORY RVT, CAROLA Mike. [address] [facility], [facility] [address], [place], [place], [id number] , [place]. [phone] Referring Provider: Debbi Garcia, [address] [place] [address], [id number]. tel:[phone] [facility], [address] [place] [address] Dr Valenzuela [address]Michael [place], [id number], [place] tel:[phone] CVR - [facility] Chronic venous hypertension (idiopathic) with other complications of bilateral lower extremity May- 4 Navdeep IVORY RVT, RPVI Robert. [address] [facility], [address], [place], [place], [id number] , [place]. tel:[phone] Referring Provider: Debbi Garcia, [address] [place] [address] [place], [address]. tel:[phone] Office/Outpt E&M Established 15 Mins [facility], [address], [place], [id number], [place] tel:[phone] [facility] - [place] [facility] [place] Body mass index (BMI) 33.0-33.9, adultChronic venous htn w oth comp of bilateral low extrm 3 Jose IVORY FACS RVT RPVI Deangelo Nicole. [address] [facility], [address], [place], [address], [place]. tel:[phone] Referring Provider: Deangelo Garcia MD FACS RVT RPVI, [address] [facility] [address], [place], [address]. tel:[phone] Family History Family Member Type Diagnosis Age At Onset No Information Payers Payer name Insurance type Covered green party ID Authoriza tion(s) Medicare MARCO ANTONIO MEDINA [id number] [facility] [id number] Social History Type Description Quantity Date Captured [...]
--- OUTSIDE RECORDS SUMMARY | 2024-02-29 14:58 | XMS_ITS ---
Author Organization [facility] Address [address] [place] [address] Care Team Providers Care Docking Pilot Name Role Phone Alma IVORY, Debbi Garcia Primary Care Provider Un available Ratna Chua Unavailable [phone] Emanuel Crawford Unavailable [phone] Allergies Allergen (clinical drug ingredient) Drug/Non Drug [...] N/A Encounters Encounter Location Date Provider Diagnosis [facility] [place] [address] [place] [address] 03/08/2023 Emanuel Crawford Pain in left foot [...] Externally Pending Test Test Name Order Date , - INJECT or DRAIN, JOINT/BUR SA 03/08/2023 Next Appt Details Follow Up: prn, Reason: Provider Name:Ratna Lopez deb, 03/20/2024 09:00:00 AM, [address] [place], [address], Procedure Notes * Category Sub-Category Detail Notes [...] peroneal insertion Med: Joint,Bursa (Sinus Tarsi,AJ) , 07 Injection # Med/Ankle joint bursa/capsule 1cc 1% [...] Leandra ESPINOZA ADOB: [birth year] (72 yo F)Acc No.[id number]:03/08/2023 Progress Note Patient:?Frenette, Leandra A Provider:?Emanuel Crawford DPM :1950???Age:72 Y???Sex:Female D ate:03/08/2023 [id number] Pcp:Wilberto Cook Subjective: * Chief Complaints: * [...] abdominoplasty 11/11/2014Pain Stimulator removed- 3 days [facility] 08/28/2018 * Hospitalization/Major Diagno stic [...] LEFT ankle --AL aspect .? * Procedure Codes:?19796 INJEC T TENDON ORIGIN/INSERT, Modifiers: XS J0702 INJ BETAMETHSN ACTAT&SOD PHOSPH-3MG, Units: 2.00 22342 DRAIN/INJECT, JOINT/BURSA, Modifiers: XS * Follow Up:?prn * Images: * Sign off status: Completed true * Provider:?Emanuel Crawford DPM Date:? 023 Generated for Yissel patel/Luca/Han on:?02/29/2024 02:57 PM EST History and Physical [...]
--- OUTSIDE RECORDS SUMMARY | 2024-02-29 14:58 | XMS_ITS | Patient Health Record ---
Author Organization [facility] Address [address] [place] [address] Care Team Providers Care Magazine Writer Name Role Phone Alma IVORY, Debbi Garcia Primary Care Provider Un available Ratna Chua Unavailable [phone] Emanuel Crawford Unavailable [phone] Allergies Allergen (clinical drug ingredient) Drug/Non Drug [...] primary osteoarthritis of the ankle and/or foot (050667851) Primary osteoarthriti s, left ankle and foot (M19.072) Active confirmed Problem Acquired hallux valgus (81064551) Hallux valgus (acquired), left foot (M20.12) Active confirmed Problem Acquired hammer toe of left foot (0645480067723885) Other hammer toe(s) (acquired), left foot (M20.42) Active confirmed Problem 565602985 Lymphedema (I89.0) Active confirmed Problem 50756917559424992 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 Vital Signs Blood pressure diastolic 68 mm Hg 11/29/2023 Height 5ft 2in in 11/29/2023 Blood pressure systolic 124 mm Hg 11/29/2023 Weight 177 lbs 11/29/2023 BMI 32.37 kg/m2 11/29/2023 Procedures Procedure Date Ordered Date Performed Result Body Sit e , J0702- INJECT or DRAI N, JOINT/BURSA 03/08/2023 N/A Encounters Encounter Location Date Provider Diagnosis [facility] [place] [address] [place] [address] 03/08/2023 Emanuel Crawford Pain in left foot M79.672 ; Primary osteoarthritis, left ankle and foot M19.072 ; Metatarsalgia, left foot M77.42 ; 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 ; Other hammer toe(s) (acquired), left foot M20.42 and Peroneal tendinitis of left lower extremity M76.[address] [address] 08/22/2023 Emanuel Crawford Pain in left foot M79.672 ; Primary osteoarthritis, left ankle and foot M19.072 ; Metatarsalgia, left foot M77.42 ; 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 ; Other hammer toe(s) (acquired), left foot M20.42 ; Peroneal tendinitis of left lower extremity M76.72 and Hallux valgus (acquired), left foot M20.[address] [address] 11/29/2023 Emanuel Crawford Pain in left foot [...] 08/05/2018 X ray : Foot, left 3V 06/01/2021, J0702- INJECT TENDON ORIGIN/INSER T 12/27/2022, J0702- INJECT or DRAIN, JOINT/BUR SA 03/08/2023, H7388-YUFOR/INJECT, JOINT/BURSA 0 10/16/2018 X ray : Ankle, right 3V 09/05/2011 Next Appt Details Provider Name:Ratna Bianchicolin boyd, 03/20/2024 09:00:00 AM, [address] [place] [address], [address], Insurance Providers Payer Name Payer Address Payer Phone Subscriber Number Group Number Insured Name Patient Relationship to Insured Coverage Start Date Coverage End Date Medicare National [employer] [address] [place] [address] [id number] Leandra Galvez Self - patient is the insured [place] ([facility]) [address] [place] [address] [id number] JohnkristaLeandra cruz Self - patient is the insured Medical (General) History Medical History History ICD Code neuropathy measles chicken pox Arthritis Back,Hip,and Knee pain Foreign Body 728.82 Ankle Sprain 845.00 Arthralgia 719.40 Arthritis - Degenerative 719.97 Pain in Limb 729.5 Calcaneal spur 726.73 Surgical History Surgery Date(Month/Year) left foot delio bunion 2009 hysterectomy 2009 bladder removal 1988 Laminectomy left sciatica 2004 tonsillectomy 1971 lap band insertion 2004 cystocele repair 2012 Right shoulder arthroscopy 1989 right thumb arthroscopy 2014 left thumb arthroscopy 2016 Appendectomy 09/01/2013 breast reduction and abdominoplasty 11/11 Pain Stimulator removed- 3 days [facility] 08/28/2018
== END 2024-02-29 14:55 | disposition home or self-care (01) ==
LOC: HO.NEURO 14:54
PROVIDERS: PCP Internal Medicine; Visit Provider Registered Nurse Emergency
DX: R20.2 Paresthesia of skin (principal); G62.9 Polyneuropathy, unspecified
CPT/HCPCS: 95886; 95909

== ENCOUNTER → 2024-02-29 14:57 | Outpatient (BNV) | payer MEDICARE, OTHER, SELFPAY | PROVIDERS: PCP Internal Medicine; Visit Provider Physical Medicine & Rehabilitation | DX: R20.0 Anesthesia of skin (principal); R20.2 Paresthesia of skin; M79.671 Pain in right foot; M79.672 Pain in left foot | CPT/HCPCS: 95886; 95909 ==

== ENCOUNTER 2024-03-26 08:13 | Outpatient (AMB) | payer MEDICARE, OTHER, SELFPAY ==
--- NOTE | 2024-03-26 08:19 | A.OFFVIS_ITS ---
Vital Signs 03/26/24 08:28 Height 5 ft 2 in Weight 153 lb 6 oz BMI 28.0 BP 136/79 Blood Pressure Location Lt brachial Position Sitting Pulse 113 H Pulse Source Pulse Oximeter Pulse Oximetry (%) 98 Oxygen Delivery Method Room Air Intake Visit Reasons: PILL COUNT Intake Note: Leandra comes in today for a pill count to oxycodone, patient should have 0 tablets and presents with 0 tablets which she last took yesterday 03/25/24 at 4pm. Pain today 4.5/10 Patients states that she will be leaving for [place] tomorrow 03/27/24 for 2 weeks. Patient resigned opioid contract in office today, copy of signed contract was offered to patient. Frame Stripper Required: No Accompanied by: Self / Same As Patient Allergies buprenorphine [Belbuca] Allergy (Unknown, Verified 03/26/24 08:29) stomach upset NSAIDS (Non-Steroidal Anti-Inflamma Allergy (Unknown, Verified 03/26/24 08:29) Stomach Upset HPI Comments Details: Leandra presents back to the office today for follow up chronic pain and chronic opioid therapy management. Patient is prescribed oxycodone 5 mg tablets, take 2 tablets daily as needed. Patient arrived today with the expectation of having 0 pills, she presented 0 pills which were counted in the presence of two staff members and returned to the patient in the original prescription bottle. This demonstrates responsible attitude toward patient's opioid medications. Pain is reported today as 5/10 and last dose of pain medication was taken yesterday at 4pm. She denies side effects including somnolence, constipation, itching, dyspnea, rash, dizziness, urinary retention or weakness. EMG reviewed, results as per below. MRI results pending Patient leaving for [place] tomorrow, she will be gone for 2 weeks. Previously: Patient had fifth SUSSY 05/23/2022, reports still receiving good effect and does not wish to schedule repeat at this time. She has PHQ score is equal to 1, Her opioid addiction risk score is equal to 2 Total score is equal to 3 she is low risk for opioid addiction. [facility] Medical History Osteoarthritis History of osteopenia Obesity (BMI 30.0-34.9) Prolapse of anterior vaginal wall Essential hypertension Dyslipidemia Irritable bowel syndrome Chronic pain syndrome Bilateral primary osteoarthritis of knee Spondylosis without myelopathy or radiculopathy, lumbar region Surgical History History of tonsillectomy History of hysterectomy History of carpal tunnel surgery History of cholecystectomy History of laparoscopic appendectomy History of lumbar laminectomy History of reduction mammoplasty H/O abdominoplasty Hx of bariatric surgery Family History Mother Diabetes mellitus Essential hypertension Cardiovascular disease Daughter Wernicke-Korsakoff syndrome (alcoholic) Social History Household Members: None Household Members Other:: 0 Housing: House Do you presently have visiting nurse or other home services: No Alcohol intake: never Patient Tobacco Use Status: Former Tobacco user e-Cigarette/Vaping Use: Never Used Advance Directives Date on File: 12/22/21 service: No Current occupational status: retired Cognitive needs: No Hearing needs: No Vision needs: No Review of Systems Const All systems reviewed & are unremarkable except as noted in HPI and below Physical Exam Vital Signs: Last Vital Signs Pulse 113 H 03/26/24 08:28 BP 136/79 03/26/24 08:28 Pulse Ox 98 03/26/24 08:28 Oxygen Delivery Method Room Air 03/26/24 08:28 BMI result Body Mass Index 28.0 General: awake, alert, oriented. Answers questions appropriately. Fully engaged in examination. Skin: warm, dry, intact without visible rashes or lesions. HEENT: Normocephalic. Cardiac: External chest normal in appearance. Respiratory: Cough without audible wheezing or stridor. Abdomen: without gross distension. MS: No obvious swelling or deformities. Able to transition from sit to stand unassisted. Ambulates with bilaterally normal heel strike and toe off Compression stockings bilateral lower extremities. Bilateral lower extremity peripheral edema noted Neurological: Oriented to person, place, time and situation. Thought process intact. Ambulates with antalgic gait Psychiatric: Appropriate mood and affect. Good judgment and insight. Results Reviewed Results Reviewed: 02/29/24 EMG IMPRESSION: 1. This is a normal study. 2. There is no electrodiagnostic evidence for peroneal neuropathy, tibial neuro ruth, lumbosacral plexopathy, lumbar radiculopathy, or peripheral neuropathy. 11/2023 x-ray lumbar spine Independently reviewed: Worsening degenerative disc disease. Official radiologist's reading pending. CT/CT abdomen pelvis w IV 10/26/22 OSSEOUS STRUCTURES: No acute or suspicious osseous abnormality. Degenerative changes throughout the spine. Assessment & Plan Assessment & Plan (1) Peripheral neuropathy: Code(s): G62.9 - Polyneuropathy, unspecified Category: Medical (2) Spondylosis without myelopathy or radiculopathy, lumbar region: Code(s): M47.816 - Spondylosis without myelopathy or radiculopathy, lumbar region Category: Medical (3) Bilateral primary osteoarthritis of knee: Code(s): M17.0 - Bilateral primary osteoarthritis of knee Category: Medical (4) Chronic pain syndrome: Code(s): G89.4 - Chronic pain syndrome Category: Medical (5) Disc degeneration, lumbar: Code(s): M51.36 - Other intervertebral disc degeneration, lumbar region Category: Medical (6) Trochanteric bursitis, left hip: Code(s): M70.62 - Trochanteric bursitis, left hip Category: Medical Plan Masspat was reviewed and without concerns. No obvious signs of diversion, abuse or misuse of the opioid medications. Prescription for oxycodone 5 mg p.o. twice daily as needed sent to the pharmacy. Fill date today. Continue with amitriptyline to 25 mg p.o. daily at bedtime All questions and concerns have been answered, patient agrees with the plan. Follow up in 1 month, sooner if needed. Medications: Changed From oxycodone Partial Fill upon patient request. 5 mg PO BID 28 days PRN 56 tabs 0RF pain M17.0 - Bilateral primary osteoarthritis of knee, M96.1 - Postlaminectomy syndrome, not elsewhere classified, Z79.891 - [facility] (current) use of opiate analgesic To oxycodone Partial Fill upon patient request. 5 mg PO BID 30 days PRN 60 tabs 0RF pain M17.0 - Bilateral primary osteoarthritis of knee, M96.1 - Postlaminectomy syndrome, not elsewhere classified, Z79.891 - [facility] (current) use of opiate analgesic Coding Level of Care Code Est Pt Level 4 (59854) Complex EM visit Add On G2211 Diagnoses Peripheral neuropathy G62.9 Spondylosis without myelopathy or radiculopathy, lumbar region M47.816 Bilateral primary osteoarthritis of knee M17.0 Chronic pain syndrome G89.4 Disc degeneration, lumbar M51.36 Trochanteric bursitis, left hip M70.62
--- OUTSIDE RECORDS SUMMARY | 2024-03-26 08:22 | XMS_ITS ---
Author Organization [facility] Address [address] [place] [address] Care Team Providers Care Clinical Review Specialist Name Role Phone Alma IVORY, Debbi Garcia Primary Care Provider Un available Ratna Chua Unavailable [phone] Emanuel Crawford Unavailable [phone] Allergies Allergen (clinical drug ingredient) Drug/Non Drug [...] Problem Status W/U Status Risk Notes Problem 684324158 Lymphedema (I89.0) Active confirmed Vital Signs Height 5ft 2in in 11/29/2023 Weight 177 lbs 11/29/2023 BMI 32.37 kg/m2 11/29/2023 Blood pressure systolic 124 mm Hg 11/29/19 24 Blood pressure diastolic 68 mm Hg 024 Encounters Encounter Location Date Provider Diagnosis [facility] [place] [address] [place] [address] 11/29/2023 Emanuel Crawford Pain in left foot [...] Follow Up: 3 Months, Reason: Provider Name:Ratna Bianchicolin boyd, 07/24/2024 09:00:00 AM, [address] [place] [address], [address], Procedure Notes * Category Sub-Category Detail [...] at peroneal insertion Med: Joint,Bursa (Sinus Tarsi,AJ) 58404, J0702 Injection # Med/Ankle joint bursa/capsule 1cc [...] Leandra ESPINOZA ADOB: [birth year] (73 yo F)Acc No.[id number]:11/29/2023 Progress Note Patient:?Leandra Espinoza Provider:?Emanuel Crawford DPM :1950???Age:73 Y???Sex:Female D ate:11/29/2023 [facility] Pcp:Wilberto Cook Subjective: * Chief Complaints: * [...] abdominoplasty 11/11/2014Pain Stimulator removed- [address] [facility] 08/28/2018 * Hospitalization/Major Diagno stic [...] - I89.0? Plan: * Treatment: * Procedures:?Injection:?Tendon Origin/insertion?02578, J0702 Injection - Tendon Origin/Insertion w/ mixture [...] LEFT ankle --AL aspect .? * Procedure Codes:?06139 INJEC T TENDON ORIGIN/INSERT, Modifiers: XS J0702 [...] Crawford DPM Date:? 024 Generated for Yissel patel/Luca/Han on:?03/26/2024 08:22 AM EST History and Physical Notes * [...] ORIENTED: person,place, and ti me Vascular DP PULSES (B): 1/4, B/L PT PULSES (B): 1/4, B/L CAPILLARY FILL TIME: 3 secs. per digit, B/L TEMPERTURE GRADIENT (C): warm to cool, p roximal to distal, B/L EDEMA (C): 3/4, B/L, Ankle(s), Leg(s) VARICOSITIES: present, moderate, n onpainful, B/L
--- OUTSIDE RECORDS SUMMARY | 2024-03-26 08:22 | XMS_ITS | Patient Health Record ---
Author Organization [facility] Address [address] [place] [address] Care Team Providers Care Rug Weaver Name Role Phone Alma IVORY, Debbi Garcia Primary Care Provider Un available Ratna Chua Unavailable [phone] Emanuel Crawford Unavailable [phone] Allergies Allergen (clinical drug ingredient) Drug/Non Drug Allergy documented on EMR Reaction Allergy Type Onset Date Status ibuprofen Advil Unknown Drug Allergy Active aspirin Aspirin Unknown Drug Allergy Active Non-steroidal anti-inflammatory agent (FN) NSAIDs stomach pain Drug Allergy Active Reason For Referral No Information Medications Medication SIG (Take, Route, Frequency, Duration) Notes Start Date End Date Status Lyrica 75 MG Orally Not-Long ing Atorvastatin Calcium 20 MG 1 tablet Oral ly Once a day for 30 day(s) Active Methocarbamol 750 MG 1 tablet Orally every 4 hrs for 30 day(s) Not-Taking Colace 100 MG 2 capsules Orally once daily Active Vicodin 5-300 MG Orally Not -Taking PriLOSEC OTC 20 MG 1 tablet Orally Once a day for 30 day(s) Active Evista Not-Taking traZODone HCl 100 MG 1 tablet at bedtime Orally Once a day for 30 day(s) Active Voltaren 1 % as directed Externally Active Vitamin D 2000 UNIT Orally Active Elavil 10mg Active Walking Boot/Pneumatic As directed Wear Daily for Until further notice Not-Taking Dulcolax 10 MG Rectal Activ e Estradiol Not-Taking Estrace 2 MG 1 tablet Orally Daily for Three Weeks, 1 Week off for 30 day(s) Active Premarin 1.25 MG Once a day No t-Taking hydroCHLOROthiazide 12.5 MG Orally Active Soma Not-Taking Hyoscyamine Sulfate 0.125 MG/5ML 5 ml as needed Orally every 4 hrs Active Lipitor 20 MG 1 tablet Orally Once a day Not-Taking oxyCODONE HCl 5 MG 1 tablet as needed Orally every 6 hrs PRN Active Immunizations Vaccine Route Administration Date Status Comme [...] primary osteoarthritis of the ankle and/or foot (010833736) Primary osteoarthriti s, left ankle and foot (M19.072) Active confirmed Problem Acquired hallux valgus (62839630) Hallux valgus (acquired), left foot (M20.12) Active confirmed Problem Acquired hammer toe of left foot (1647526124537605) Other hammer toe(s) (acquired), left foot (M20.42) Active confirmed Problem 044042872 Lymphedema (I89.0) Active confirmed Problem 57733873043444478 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 Vital Signs Blood pressure diastolic 75 mm Hg 03/20/2024 Height 5ft2in in 03/20/2024 Blood pressure systolic 126 mm Hg 03/20/2024 Weight 150 lbs 03/20/2024 BMI 27.43 kg/m2 03/20/2024 Procedures Procedure Date Ordered Date Performed Result Body Sit e , X4989-XQYQP/INJECT, JOINT/BURSA 03/20/2024 N/A Encounters Encounter Location Date Provider Diagnosis [facility] [place] [address] [place] [address] 08/22/2023 Emanuel Crawford Pain in left foot M79.672 ; Primary osteoarthritis, left ankle and foot M19.072 ; Metatarsalgia, left foot M77.42 ; 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 ; Other hammer toe(s) (acquired), left foot M20.42 ; Peroneal tendinitis of left lower extremity M76.72 and Hallux valgus (acquired), left foot M20.[address] [address] 11/29/2023 Emanuel Crawford Pain in left foot M79.672 ; Primary osteoarthritis, left ankle and foot M19.072 ; Metatarsalgia, left foot M77.42 ; 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 ; Other hammer toe(s) (acquired), left foot M20.42 ; Peroneal tendinitis of left lower extremity M76.72 ; Hallux valgus (acquired), left foot M20.12 and Lymphedema I89.[address] [address] 03/20/2024 Ratna Chua Sinus tarsitis of left foot M25.572 Assessments Encounter Date Diagnosis (ICD Code) Assessment Notes Treatment Notes Treatment Clinical Notes Section Notes 08/22/2023 Pain in left foot (ICD-10 - M79.672) 08/22/2023 Primary osteoarthritis, left ankle and foot (ICD-10 - M19.072) 11/29/2023 Pain in left foot (ICD-10 - M79.672) 11/29/2023 Primary osteoarthritis, left ankle and foot (ICD-10 - M19.072) 03/20/2024 Sinus tarsitis of left foot (ICD-10 - M25.572) 11/29/2023 Metatarsalgia, left foot (ICD-10 - M77.42) [...] - M20.12) 11/29/2023 Lymphedema (ICD-10 - I89.0) 03/20/2024 Other Patient Educated with: RICE THERAPY.pdf (RICE THERAPY.pdf) Patient Educated with: INJECTIONTHERA PY.pdf (INJECTIONTHER APY.pdf) Plan Of Treatment Pending Test Test Name Order Date X ray : Foot, right 2V 09/05/2011 X ray : Foot, left 3V 08/05/2018 X ray : Foot, left 3V 06/01/2021, J0702- INJECT TENDON ORIGIN/INSER T 12/27/2022, J0702- INJECT or DRAIN, JOINT/BUR SA 03/08/2023, U9649-SPYPJ/INJECT, JOINT/BURSA 0 03/20/2024, K1250-FQQTD/INJECT, JOINT/BURSA 0 10/16/2018 X ray : Ankle, right 3V 09/05/2011 Next Appt Details Provider Name:Ratna Lopez deb, 07/24/2024 09:00:00 AM, [address] [place], [address], Insurance Providers Payer Name Payer Address Payer Phone Subscriber Number Group Number Insured Name Patient Relationship to Insured Coverage Start Date Coverage End Date Medicare [facility] [address] [facility] [place] [address] [id number] Leandra Galvez Self - patient is the insured [facility] [address] [place] [address] [phone] [id number] Leandra Galvez Self - patient is the insured Medical (General) History Medical History History ICD Code neuropathy measles chicken pox Arthritis Back,Hip,and Knee pain Foreign Body 728.82 Ankle Sprain 845.00 Arthralgia 719.40 Arthritis - Degenerative 719.97 Pain in Limb 729.5 Calcaneal spur 726.73 Lymphedema Surgical History Surgery Date(Month/Year) left foot delio bunion 2009 hysterectomy 2009 bladder removal 1988 Laminectomy left sciatica 2004 tonsillectomy 1971 lap band insertion 2004 cystocele repair 2012 Right shoulder arthroscopy 1989 right thumb arthroscopy 2014 left thumb arthroscopy 2016 Appendectomy 09/01/2013 breast reduction and abdominoplasty 11/11 Pain Stimulator removed- 3 days [facility] 08/28/2018
--- OUTSIDE RECORDS SUMMARY | 2024-03-26 08:22 | XMS_ITS ---
Author Organization [facility] Address [address] [place] [address] Care Team Providers Care Checker Dump Grounds Name Role Phone Alma IVORY, Debbi Garcia Primary Care Provider Un available Ratna Chua Unavailable [phone] Allergies Allergen (clinical drug ingredient) Drug/Non Drug Allergy documented on EMR Reaction Allergy Type Onset Date Status ibuprofen Advil Unknown Drug Allergy Active aspirin Aspirin Unknown Drug Allergy Active Non-steroidal anti-inflammatory agent (FN) NSAIDs stomach pain Drug Allergy Active REASON FOR VISIT Pcp-10/09, Foot pain Medications Medication SIG (Take, Route, Frequency, Duration) Notes Start Date End Date Status Atorvastatin Calcium 20 MG 1 tablet Oral ly Once a day for 30 day(s) Active Colace 100 MG 2 capsules Orally once daily Active Dulcolax 10 MG Rectal Activ e Estrace 2 MG 1 tablet Orally Daily for Three Weeks, 1 Week off for 30 day(s) Active hydroCHLOROthiazide 12.5 MG Orally Active oxyCODONE HCl 5 MG 1 tablet as needed Orally every 6 hrs PRN Active Evista Not-Taking Voltaren 1 % as directed Externally Active Elavil 10mg Active Lipitor 20 MG 1 tablet Orally Once a day Not-Taking Methocarbamol 750 MG 1 tablet Orally every 4 hrs for 30 day(s) Not-Taking Vicodin 5-300 MG Orally Not -Taking Estradiol Not-Taking Premarin 1.25 MG Once a day No t-Taking Soma Not-Taking Lyrica 75 MG Orally Not-Long ing PriLOSEC OTC 20 MG 1 tablet Orally Once a day for 30 day(s) Active traZODone HCl 100 MG 1 tablet at bedtime Orally Once a day for 30 day(s) Active Vitamin D 2000 UNIT Orally Active Walking Boot/Pneumatic As directed Wear Daily for Until further notice Not-Taking Hyoscyamine Sulfate 0.125 MG/5ML 5 ml as needed Orally every 4 hrs Active Social History Tobacco Use: Social History Observation Description Date Details (start date - stop date) Former Smoker NA - NA Tobacco Use/Smoking Question Answer Notes Are you a: former smoker Additional Findings: Tobacco Non-User Current no n-smoker Tobacco use other than smoking: Question Answer Notes Are you an other tobacco user? No Vital Signs Height 5ft2in in 03/20/2024 Weight 150 lbs 03/20/2024 BMI 27.43 kg/m2 03/20/2024 Blood pressure systolic 126 mm Hg 03/20/19 25 Blood pressure diastolic 75 mm Hg 025 Procedures Procedure Date Ordered Date Performed Result Body Sit e , L9099-MUUKX/INJECT, JOINT/BURSA 03/20/2024 N/A Encounters Encounter Location Date Provider Diagnosis [facility] [address] [address] 03/20/2024 Ratna Chua Sinus tarsitis of left foot M25.572 Assessments Encounter Date Diagnosis (ICD Code) Assessment Notes Treatment Notes Treatment Clinical Notes Section Notes 03/20/2024 Sinus tarsitis of left foot (ICD-10 - M25.572) 03/20/2024 Other Patient Educated with: RICE THERAPY.pdf (RICE THERAPY.pdf) Patient Educated with: INJECTIONTHERA PY.pdf (INJECTIONTHER APY.pdf) Plan Of Treatment Treatment Notes Assessment Notes Other Patient Educated wit h: RICE THERAPY.pdf (RICE THERAPY.pdf) Patient Educated with: INJECTIONTHERAPY.pdf (INJECTIONTHERAPY.pdf) Pending Test Test Name Order Date , O6504-YAZIW/INJECT, JOINT/BURSA 0 03/20/2024 Next Appt Details Follow Up: 3 Months, Reason: Provider Name:Ratna boyd, 07/24/2024 09:00:00 AM, [address] [place] [address], [address], Procedure Notes * Category Sub-Category Detail Notes Injection Sm. Joint, Bursa , J0702 In jection - sm/med joint bursa/capsule with 1cc of 1 percent Xylo.pl with 3mg Celestone Soluspan utilizing aseptic technique. The patient tolerated the procedure well. A dry sterile dressing was applied. Post injection instructions were dispensed, verbally discussed, and confirmed understood by the patient. I explained that a steroid and local anesthetic injection usually decreases pain and inflammation in order to restore proper function. I explained the possible complications including but not limited to signs/symptoms of steroid flare, change/deviation in toe position, infection, bruising, atrophy, discoloration of skin, and that additional injections may be necessary. Patient relates post-procedural pain assessment improved at ( 0-1) out of 10 Progress Notes * Leandra ESPINOZA ADOB: [birth year] (73 yo F)Acc No.[id number]:03/20/2024 Progress Note Patient:?Leandra ESPINOZA Provider:?Ratna Chua DPM :1950???Age:73 Y???Sex:Female D ate:03/20/2024 Address:[address] [place], [place] [id number] Pcp:Wilberto Cook Subjective: * Chief Complaints: * ???Pcp-10/09Foot pain * HPI: ???Foot Pain:?Treatments:?Custom orthotics (in good condition), previous cortisone injection (November 2023), oral anti- inflammatories, soaks.?Severity/Quality:?Pre-injection procedure pain assessment - ( _8) out of 10.?Misc:?Patient states previous conservative therapy has not provided acceptable relief. Despite previous treatments/efforts, patient continues to relate substantial pain and significant functional disability during activity , The patient denies to have received any vaccine therapy within the past month.? * ROS:?General/Constitutional:?Nausea?denies.?Vomiting?denies.?Hunger Thirst?denies.?Loss appetite?denies.?Chills?denies.?Fatigue?denies.?Fever?denies.?Night Sweats?denies.?Unexplained weight loss?denies.?Unexplained weight gain?denies.?HEENTM:?Dentures?denies.?Dizziness?denies.?Glasses/contacts?admits.?Retinopathy?de nies.?Blurred/double vision?denies.?TMJ?denies.?Discharge/drainage?denies.?Implants?denies.?Sore throat?denies.?Dental implants?denies.?Hard of hearing ?denies.?Difficulty chewing/swallowing/speaking?denies.?Nose bleeds?denies.?Sore mouth?denies.?Respiratory:?On Oxygen?denies.?Pneumonia/pleurisy?denies.?Bronchitis?denies.?Emphysema?denies.?C oughing?denies.?Cough blood?denies.?Shortness of breath?denies.?Wheezing?denies.?Cardiovascular:?Pacemaker?denies.?MVP?denies.?WPW?denies.?CHF?denies.?Heart attack?denies.?Septal defect?denies.?Rapid beat?denies.?Chest pain ?denies.?Atrial Fib.?denies.?Murmur/Palpitations?denies.?Gastrointestinal:?Hemorrhoids?denies.?Stomach/Abdominal pain?denies.?Dark blood stool?denies.?Irritable bowel ?admits.?Constipation?denies.?Diarrhea?denies.?Hematology:?Swelling?denies.?Clots?denies.?Varicose Veins?denies.?Bruising?denies.?Bleeding problem?denies.?Genitourinary:?Blood urine?denies.?Frequent/Painfu/urination/bladder control?denies.?Kidney stones?denies.?Infection (UTI)?denies.?Nephropathy?denies.?sex trans dis (STD)?denies.?Prostate?denies.?Musculoskeletal:?Katia?denies.?Bunions?denies.?Back Pain?denies.?Muscle Cramps/ Resting?denies.?Muscle cramps / walking?denies.?Generalized aches and pains?denies.?Weakness?denies.?Integ.:?Bowman?denies.?Scars?denies.?Corns/calluses?denies.?Ingrown nails?denies.?Painful nails?denies.?Open Sores?denies.?Rashes?denies.?Neurologic:?Difficulty sleeping?denies.?Brain disorder?denies.?Numbness?denies.?Balance trouble?denies.?Confusion?denies.?Fainting/blackouts?denies.?Tingling?denies.?Tr emors?denies.? * Medical History:? * Surgical History:?left foot delio bunion 2009hysterectomy 2009bladder removal 1989Laminectomy left sciatica 2004tonsillectomy 1971lap band insertion 2005cystocele repair 2013Right shoulder arthroscopy 1990right thumb arthroscopy 2015left thumb arthroscopy 2017Appendectomy 09/01/2013reast reduction and abdominoplasty 11/11/2014Pain Stimulator removed- 3 days [facility] 08/28/2018 * Hospitalization/Major Diagno stic Procedure:?Denies Past Hospitalization * Family History:?Mother: dece ased, diabetes, heart attack, high blood pressure.?Father: , arthritis.? * Social History:?Tobacco Use:?Tobacco Use/Smoking?Are you a:?former smoker ?Additional Findings: Tobacco Non-User?Current non-smoker ?Tobacco use other than smoking?Are you an other tobacco user??No * Medications:?TakingVoltaren 1 % Gel as directed Externally Elavil , Notes to Pharmacist: 10mgoxyCODONE HCl 5 MG Capsule 1 tablet as needed Orally every 6 hrs , Notes to Pharmacist: PRNAtorvastatin Calcium 20 MG Tablet 1 tablet Orally Once a day Colace 100 MG Capsule 2 capsules Orally once daily Dulcolax 10 MG Suppository Rectal Estrace 2 MG Tablet 1 tablet Orally Daily for Three Weeks, 1 Week off hydroCHLOROthiazide 12.5 MG Capsule Orally Hyoscyamine Sulfate 0.125 MG/5ML Elixir 5 ml as needed Orally every 4 hrs PriLOSEC OTC 20 MG Tablet Delayed Release 1 tablet Orally Once a day traZODone HCl 100 MG Tablet 1 tablet at bedtime Orally Once a day Vitamin D 2000 UNIT Tablet Orally Taking Voltaren 1 % Gel as directed Externally Taking Elavil , Notes to Pharmacist: 10mgTaking oxyCODONE HCl 5 MG Capsule 1 tablet as needed Orally every 6 hrs , Notes to Pharmacist: PRNTaking Atorvastatin Calcium 20 MG Tablet 1 tablet Orally Once a day Taking Colace 100 MG Capsule 2 capsules Orally once daily Taking Dulcolax 10 MG Suppository Rectal Taking Estrace 2 MG Tablet 1 tablet Orally Daily for Three Weeks, 1 Week off Taking hydroCHLOROthiazide 12.5 MG Capsule Orally Taking Hyoscyamine Sulfate 0.125 MG/5ML Elixir 5 ml as needed Orally every 4 hrs Taking PriLOSEC OTC 20 MG Tablet Delayed Release 1 tablet Orally Once a day Taking traZODone HCl 100 MG Tablet 1 tablet at bedtime Orally Once a day Taking Vitamin D 2000 UNIT Tablet Orally Not-Taking/PRNWalking Boot/Pneumatic As directed Wear Daily Lyrica 75 MG Capsule Orally Methocarbamol 750 MG Tablet 1 tablet Orally every 4 hrs Vicodin 5-300 MG Tablet Orally Estradiol Premarin 1.25 MG Once a day Soma Lipitor 20 MG Tablet 1 tablet Orally Once a day Evista Medication List reviewed and reconciled with the patientNot-Taking/PRN Walking Boot/Pneumatic As directed Wear Daily Not-Taking/PRN Lyrica 75 MG Capsule Orally Not-Taking/PRN Methocarbamol 750 MG Tablet 1 tablet Orally every 4 hrs Not-Taking/PRN Vicodin 5-300 MG Tablet Orally Not-Taking/PRN Estradiol Not-Taking/PRN Premarin 1.25 MG Once a day Not- Taking/PRN Soma Not-Taking/PRN Lipitor 20 MG Tablet 1 tablet Orally Once a day Not- Taking/PRN Evista Medication List reviewed and reconciled with the patient * Allergies:?AspirinAdvilNSAID s: stomach painyes[Allergies Verified] Objective: * Vitals:?Ht: 5ft2in, Wt:150, BMI:27.43, Shoe size: 8.5W, BP:126/75mm Hg, Ht-cm: 157.48 cm, Wt-k.04 kg. * Examination: ???Orthopedic: ?MUSCLE STRENGTH:?5/5 all groups in a symmetrical fashion, B/L.?ANKLE PAIN LOCATED:?Pain with palpation of sinus tarsi, tenderness and crepitus with subtalar joint range of motion, mild edema to sinus tarsi.?General Examination: ?GENERAL APPEARANCE:?pleasant, alert, well nourished, well developed, well hydrated, with good attention to hygene/body habitus, and in no acute distress.?ORIENTED:?person,place, and time.?Vascular: ?DP PULSES (B):? 1/4, B/L.?PT PULSES (B):? 1/4, B/L.?CAPILLARY FILL TIME:?3 secs. per digit, B/L.?TEMPERTURE GRADIENT (C):?warm to cool, proximal to distal, B/L.?EDEMA (C):? 3/4, B/L, Ankle(s), Leg(s).?VARICOSITIES:? present, moderate, nonpainful, B/L.?Dermatologic: ?SKIN FINDINGS:?Skin exam reveals normal texture, elasticity, and tugor. There are no masses. The interspaces are clear, B/L .? Assessment: * Assessment: 1.?Sinus tarsitis of left fo ot - M25.572 (Primary)??? Plan: * Treatment: 2.?Others? Notes: Patient Educated with: RICE THERAPY.pdf (RICE THERAPY.pdf) Patient Educated with: INJECTIONTHERAPY.pdf (INJECTIONTHERAPY.pdf) ?? * Procedures:?Injection:?Sm. Joint, Bursa?, J0702 Injection -?sm/med joint bursa/capsule with 1cc of 1 percent?Xylo.pl?with 3mg Celestone Soluspan utilizing aseptic technique. The patient tolerated the procedure well. A dry sterile dressing was applied. Post injection instructions were dispensed, verbally discussed, and confirmed understood by the patient. I explained that a steroid and local anesthetic injection usually decreases pain and inflammation in order to restore proper function. I explained the possible complications including but not limited to signs/symptoms of steroid flare, change/deviation in toe position, infection, bruising, atrophy, discoloration of skin, and that additional injections may be necessary. Patient relates post-procedural pain assessment improved at ( 0-1) out of 10.? * Procedure Codes:? DRAIN /INJECT, JOINT/[id number] INJ BETAMETHSN ACTAT&SOD PHOSPH-3MG * Preventive Medicine:? ??Counseling:?P.R.I.C.E.:?The patient was counseled on the use of P.R.I.C.E. and NSAIDS (if well tolerated) to aid in the recovery from their painful condition.?Steriod Injection:?I explained that a steroid and local anesthetic injections are administered to relieve pain and inflammation and thereby meant to improve function. I explained the possible complications including but not limited to signs/symptoms of steroid flare, infection, bruising, atrophy, discoloration of skin, change/deviation in toe position, and that additional injections may be necessary, cortisone post-injection informative educational handout was dispensed to and reviewed with the patient, In order to prevent any compromise of an effective immune response, it was recommended the patient refrain from any vaccine therapy for the next month. Patient verbally confirmed understanding the previously mentioned protocol.? * Follow Up:?3 Months * Images: * Sign off status: Completed true * Provider:?Ratna Chua DPM Date:?0 03/20/2024 Generated for Yissel patel/Luca/Han on:?03/26/2024 08:21 AM EST History and Physical Notes * HPI (History of Present Illness) Category Sub-Category Detail Notes Category Not es Foot Pain Treatments: Custom orthotics (in good condition), previous cortisone injection (November 2023), oral anti- inflammatories, soaks Severity/Quality: Pre-injection proced ure pain assessment - ( _8) out of 10 Misc: Patient states previ ous conservative therapy has not provided acceptable relief. Despite previous treatments/efforts, patient continues to relate substantial pain and significant functional disability during activity , The patient denies to have received any vaccine therapy within the past month Examination Category Sub-Category Detail Notes Category Not es Dermatologic SKIN FINDINGS: Skin exam reveal s normal texture, elasticity, and tugor. There are no masses. The interspaces are clear, B/L Orthopedic ANKLE PAIN LOCATED: Pain with pa lpation of sinus tarsi, tenderness and crepitus with subtalar joint range of motion, mild edema to sinus tarsi MUSCLE STRENGTH: 5/5 all groups in a symmetrical fashion, B/L General Examination GENERAL APPEARANCE: pleasant , [...]
--- OUTSIDE RECORDS SUMMARY | 2024-03-26 08:22 | XMS_ITS ---
Author Organization [facility] Address [address] [place] [address] Care Team Providers Care Parachute Supervisor Name Role Phone Alma IVORY, Debbi Garcia Primary Care Provider Un available Ratna Chua Unavailable [phone] Encounters Encounter Location Date Provider [facility] [address] [place] [address] 03/20/2024 Ratna Chua Plan Of Treatment Next Appt Details Provider Name:Ratna boyd, 07/24/2024 09:00:00 AM, [address] [place], [address], Progress Notes * OLGA Leandra ADOB: [birth year] (73 yo F)Acc No.[id number]:03/20/2024 Progress Note Patient:?Leandra ESPINOZA Provider:?Ratna Chua DPM :1950???Age:73 Y???Sex:Female D ate:03/20/2024 Address:[address] [place] [address] Pcp:Wilberto oCok Subjective: * Chief Complaints: * ??? * Medical History:? Objective: * Vitals:? Assessment: Plan: * Treatment: * Images: * The named appointment provid er may or may not be the originator of this progress note, and it is not deemed complete until electronically signed by the appointment provider. Sign off status: Pending * Provider:?Ratna Chua DPM Date:?0 03/20/2024 Generated for Yissel patel/Luca/Han on:?03/26/2024 08:22 AM EST
--- OUTSIDE RECORDS SUMMARY | 2024-03-26 08:22 | XMS_ITS | Continuity of Care Document ---
Author Organization [facility] Address [address] [place] [address] Phone Care Team Providers Care Renal Social Worker Name Role Phone Navdeep IVORY, RVT, RPVI, [...] Diagnoses Date Provider Providers Copied on Encounter [facility] MD WETZEL, [address] [place] [address] Dr Valenzuela [address]Michael [place], [id number], tel:[phone] [facility] [place] No Information 4 Navdeep IVORY RVT, CAROLA Mike. [address] [address], [facility] [place], [id number] , [place]. tel:[phone] Office/Outpt E&M Established 15 Mins- CT & [place] [facility] MD WETZEL, [address] [place] [address] Dr Valenzuela 1000SuMichael toure [place], [id number], [place] tel:[phone] [facility] [place] Lymphedema, not elsewhere classifiedCramp and spasmRestless legs syndrome 4 Navdeep IVORY RVT, CAROLA Mike. [address] [address], [place], [place], [id number] , [place]. tel:[phone] Referring Provider: Debbi Garcia, [address] [place] [address], [address]. tel:[phone] [facility] MD WETZEL, [address] [place] [address] Dr Valenzuela 1000Suite Michael Sanchez [place], [id number], [place] tel:[phone] CVR - [facility] Chronic venous hypertension (idiopathic) with other complications of bilateral lower extremity 4 Navdeep IVORY RVT, CAROLA Mike. [address] [facility], [address], [facility] [place], [id number] , [place]. tel:[phone] Referring Provider: Debbi Garcia, [address] [facility] [address] [place], [address]. tel:[phone] [facility], [address] [place] [address] Dr Valenzuela 1000Suite 1000Michael [place], [id number], [place] tel:[phone] CVR - [facility] Encounter for follow-up examination after completed treatment for conditions other than malignant nePain in left leg Apr-0 4 Navdeep IVORY RVT, CAROLA Mike. [address] [facility], [address], [place], [place], [id number] , [place]. tel:[phone] Referring Provider: Debbi Marquez MD Jsoe, [address] [place] [address], [address]. tel:[phone] [facility], [address] [place] [address] Dr Valenzuela 1000[address] 1000Michael [place], [id number], [place] tel:[phone] CVR [facility] Varicose veins of left lower extremity with other complications Apr-0 4 Lucila Resee . [address] [address], [place], [place], [id number] , [place]. [phone] Referring Provider: Debbi Marquez MD Joes, [address] [place] [address], [address]. tel:[phone] [facility], [address] [place] [address] Dr Valenzuela 1000[address] 1000Michael [place], [id number], [place] tel:[phone] [facility] - [facility] Encounter for follow-up examination after completed treatment for conditions other than malignant nePain in right leg Apr-0 4 Navdeep IVORY RVT, CAROLA Mike. [address] [address], [place], [place], [id number] , [place]. [phone] Referring Provider: Debbi Garcia, [address] [place] [address], [address]. tel:[phone] [facility], [address] [place] [address] Dr Valenzuela 1000Suite 1000Michael [place], [id number], [place] tel:[phone] [facility] [place] Chronic venous hypertension (idiopathic) with inflammation of right lower extremity May-2 4 Navdeep IVORY RVT, CAROLA Mike. [address] [facility], [facility] [address], [place], [place], [id number] , [place]. tel:[phone] Referring Provider: Debbi Garcia, [address] [place] [address], [address]. tel:[phone] Office/Outpt E&M Established 25 Mins [facility], [address] [place] [address] Dr Valenzuela 1000Suite 1000Michael [place], [id number], [place] tel:[phone] [facility] [place] Chronic venous hypertension (idiopathic) with other complications of bilateral lower extremityPain in left lower legPain in right legPain in left legRestless legs syndromeVenous insufficiency (chronic) (peripheral)Instructor [employer]stitute [employer]met[employer] mp and spasmLocalized edema May- 4 Navdeep IVORY RVT, CAROLA Mike. [address] [facility], [facility] [address], [place], [place], [id number] , [place]. [phone] Referring Provider: Debbi Garcia, [address] [place] [address], [address]. tel:[phone] [facility], [address] [place] [address] Dr Valenzuela 1000[address] 1000Michael [place], [id number], [place] tel:[phone] CVR - [facility] Chronic venous hypertension (idiopathic) with other complications of bilateral lower extremity May- 4 Navdeep IVORY RVT, RPVI Robert. [address] [facility], [address], [place], [place], [id number] , [place]. tel:[phone] Referring Provider: Debbi Garcia, [address] [place] [address] [place], [address]. tel:[phone] Office/Outpt E&M Established 15 Mins [facility], [address], [place], [id number], [place] tel:[phone] [facility] [place] Body mass index (BMI) 33.0-33.9, adultChronic venous htn w oth comp of bilateral low extrm 3 Jose IVORY FACS RVT RPVI Deangelo Nicole. [address] [facility], [address], [place], [address], [place]. tel:[phone] Referring Provider: Deangelo Garcia MD FACS RVT RPVI, [address] [facility] [address], [place], [address]. tel:[phone] Family History Family Member Type Diagnosis Age At Onset No Information Payers Payer name Insurance type Covered libertarian ID Authoriza tion(s) Medicare MARCO ANTONIO MEDINA [id number] [facility] [id number] Social History Type Description Quantity Date Captured [...]
--- OUTSIDE RECORDS SUMMARY | 2024-03-26 08:22 | XMS_ITS | Continuity of Care Document ---
Author Organization [facility], NISREEN [place] 1st Floor Address [address] [place] [address] Care Team Providers Care Crime Prevention Police Officer Name Role Phone JEREMY THAKKAR Primary Care Provider Assessment No assessment recorded. Plan of Treatment Reminders Order Date Submit Date Provider Last Modified By Organization Details Last Modified Time Details Appointments None record ed. Lab None record ed. Referral None record ed. Procedures None record ed. Surgeries None record ed. Imaging None record ed. Medication Orders None record ed. Patient TargetsNo targets recorded. Patient InstructionsNo instructions recorded. Reason for Referral None Reported. Problems Name Problem SNOMED Code Status Onset Date Resolution Date Notes Provider Name and Address Organization Details Recorded Time No complaint s [id number] Active Status: 'I'; Not Available [facility] 4 09:25:07 Pain of left shoulder joint 050184803765 70129 Active 2023 Dede Felix PA-C [address], [place], [address] , [facility] 4 12:33:30 Idiopathi c osteoarth ritis 968967659 Active 2019 Problem Code: M17.0; Problem Code Type: ICD-10; Status: 'A'; Not Available [facility] 4 11:57:27 Bilateral shoulder osteoarth ritis 936312681115 108 Active 2023 Dede Felix PA-C [address], [place], [address] , [facility] 4 09:08:04 Osteoarth ritis of joint of left shoulder region 558556240907 108 Active 2023 Dede Felix PA-C [address] [facility], [place], [address] , [facility] 16:55:44 Problem Notes None recorded. Procedures Surgical History Date Name Laterality Status Provider Name and Address Organization Details Recorded Time 5 Sports Shoulder completed Dede Felix PA-C [address], [place], [address], [facility] 03/20/2024 12:33:07 4 Sports Shoulder completed Dede Felix PA-C [address], [place], [address], [facility] 12/03/2023 12:32:04 4 Sports Shoulder completed Dede Felix PA-C [address], [place], [address], [facility] 08/30/2023 16:55:10 4 Shoulder Kenalog 2cc Injection, Bilateral completed Dede Felix PA-C [address], [place], [address], [facility] 06/01/2023 09:07:52 Imaging Results None recorded. Procedure Notes None recorded. Medical Equipment None Reported. Allergies Allergen ID Allergen Name Allergen Category Reaction Reaction Severity Criticality Documentation Date Start Date Code Code System Note Provider Name and Address Organization Details Recorded Time 97569 Non-stero idal anti-infl ammatory agent (product) medicatio n Not available Not available Not available 05/21/20232012 33028 005 SNOMED Not Available [facility] 12:44:51 Medications Name Sig Start Date Stop Date Status Note LastModified by Organization Details LastModified Time amoxicillin 500 mg capsule TAKE 4 CAPSULES 1 HOUR PRIOR TO APPOINTME NT active Not Available Not Available No t Available atorvastati n 20 mg tablet TAKE 1 TABLET BY MOUTH EVERY DAY active Not Available Not Available No t Available azithromyci n 250 mg tablet TAKE 2 TABLETS BY MOUTH TODAY, THEN TAKE 1 TABLET DAILY FOR 4 DAYS DIRECTED active Not Available Not Available No t Available benzonatate 200 mg capsule TAKE 1 CAPSULE BY MOUTH THREE TIMES A DAY NEEDED FOR COUGH FOR 7 DAYS active Not Available Not Available No t Available amitriptyli ne 25 mg tablet TAKE 1 TABLET ORALLY DAILY AT BEDTIME FOR 2 WEEKS, THEN MAY INCREASE TO 2 TABS DAILY AT BEDTIME active Not Available Not Available No t Available trazodone 100 mg tablet TAKE 1 TABLET BY MOUTH EVERYDAY AT BEDTIME active Not Available Not Available No t Available amitriptyli ne 10 mg tablet TAKE 1 TABLET BY MOUTH DAILY AT BEDTIME FOR 2 WEEKS, THEN MAY INCREASE TO 2 TABS DAILY AT BEDTIME active Not Available Not Available No t Available benzonatate 100 mg capsule TAKE 1 CAPSULE BY MOUTH TWICE A DAY NEEDED FOR COUGH 08/24 completed Not Available Not Available Not Available hyoscyamine sulfate 0.125 mg tablet TAKE 1 TABLET ORALLY DAILY NEEDED FOR DYSPEPSIA active Not Available Not Available No t Available estradiol 2 mg tablet TAKE 1 TABLET BY MOUTH EVERY DAY active Not Available Not Available No t Available oxycodone 5 mg tablet TAKE 1 TABLET BY MOUTH TWICE A DAY NEEDED active Not Available Not Available No t Available estradiol Estradiol 0.025MG/2 4HR Patch Twice Weekly 12/19 completed Statu s: 'Disc ontin ued'; Not Available Not Available Not Available hyoscyamine sulfate Hyoscyami ne Sulfate 0.125MG Tablet 11/23 completed Statu s: 'Disc ontin ued'; Not Available Not Available Not Available Dyazide Dyazide 37.5-25MG Capsule once a day 12/19 completed Statu s: 'Disc ontin ued'; Not Available Not Available Not Available hydrochloro thiazide 12.5 mg tablet TAKE 1 TABLET (12.5MG) BY MOUTH DAILY active Not Available Not Available No t Available oxycodone HCl-oxycodo ne-ASA oxyCODONE HCl 5MG Tablet 08/29 completed Statu s: 'Curr ent'; Not Available Not Available Not Available Vitals Date Recorded Body height Body mass index (BMI) Body weight Provider Name and Address Organization Details Last Updated DateTime 03/21/2024 157.48 cm 32.6 kg/m2 42188.44 g RUTHIE EmilyBIENVENIDOLIZ [facility] 03/21/2024 08:26:33 Social History Question Answer Notes LastModified by Organizat ion Details LastModified Time Tobacco Smoking Status Former Smoker CHRISTY JOSE ALEJANDRO shine [place] [facility] 08/30/2023 08:54:11 What Is Your Level Of Alcohol Consumption? None Information not available 08/30/2023 When Did You Quit Smoking? 16+yearssin celastcigar ette Information not available 08/30/2023 Which Of Your Hands Is Dominant? Right Information not available 08/30/2023 Do You Use Any Illicit Or Recreational Drugs? No olWattblockinmejia Information not available 08/30/2023 Do You Or Have You Ever Used Any Other Forms Of Tobacco Or Nicotine? No olWattblockinmejia Information not available 08/30/2023 Sex: Unknown Functional Status None recorded. Mental Status None recorded. Family History Nothing Reported. Medical History Condition Response Gastrointestinal Disease Y Arthritis Y Cholesterol Y Gynecological HistoryNo gynecological history recorded. Obstetrics History GPAL:G 0 P 0 0 0 0 Past Encounters Encounter ID Performer Location Encounter Start Date Encounter Closed Date Diagnosis/Indication Diagnosis SNOMED-CT Code Diagnosis ICD10 Code Diagnosis Note [id number] [place] [address] [place] [address] 03/21/2024 08:16:46 03/21/2024 09:13:44 Pain of left shoulder joint [id number] 1652937 M25.512 Health Concerns Section Related Observation LastModified by Organization Detai ls LastModified Time None Recorded Concern Status LastModified by Organization Details LastModified Time None Recorded Payers Encounter Date Sequence Insurance Name Policy Number Policy Van Covered Member ID Van Member ID Guarantor Name 03/21/2024 1 [place]IC[place] [employer] Leandra Galvez [id number] Leandra Galvez 03/21/2024 2 [facility] [employer] PLAN F (MEDICARE SUPPLEMENT) [id number] Leandra Galvez [id number] Leandra Galvez Notes Date Note Type Note Provider Name and Address Organization Details Recorded Time 03/21/2024 text/html I am seeing the patient today under the supervision of Dr. Kerr who was available but did not see the patient.CLINICAL UPDATE: 73-year-old right hand dominant female patient presents today for left shoulder pain. Last left shoulder cortisone injection 12/03/23 provided good relief until the last few weeks. HPI: She was evaluated previously for her left shoulder, pain in rotator cuff distribution, by Dr. Ely 04-25-22 and received a cortisone injection which provided her with great relief until recently. Recommended MRI if no improvement. No new injury. She feels as if the right shoulder is similar. She reports physical therapy did not provide her with any relief. History of right distal clavicle excision with acromioplasty by Dr. Ward in 1994, with subsequent SADDCE in 1999. Past family, medical, social history and review of systems has been reviewed, updated and is located in the patient's chart. PHYS EXAM:The patient is well appearing and in no apparent distress. Alert and oriented x3. Gait is symmetric.Bilateral Shoulder Exam: No warmth, effusion, erythema, or ecchymosis. Active shoulder elevation to 170, external rotation to 45, internal rotation to SI joint. positive crepitus. 4/5 strength with RTC testing. Positive impingement signs. Negative cross body adduction. Sensation in tact.Peripheral, vascular, lymphatic examination, skin, neurological, coordination, reflexes, sensation are within normal limits. X-RAYS:Previous 4v x-rays right shoulder reviewed. AP view demonstrates mild glenohumeral joint space narrowing, cystic change at the greater tuberosity of the humeral, well preserved AC joint space. Outlet view demonstrates type I acromion. Axillary view demonstrates humeral head centered.Previous left shoulder x-rays demonstrated type II acromion, humeral head centered, mild glenohumeral joint osteoarthritis, moderate AC joint degenerative change. IMPRESSION: Bilateral shoulder- mild osteoarthritis and rotator cuff tendinopathy, left more symptomatic PLAN: Findings reviewed. Discussed it is possible she has a partial or full thickness rotator cuff tear, however, she would like to avoid surgical intervention at this time, therefore we will hold off on ordering MRI. She understands waiting could make a tear irreparable. She elected to proceed with repeat left shoulder cortisone injection today. Will follow-up as needed for recheck. All of her concerns are addressed and she understands and agrees with the plan. Speech recognition jacker feeder software was used to create portions of this document. An attempt at proofreading has been made to minimize errors. Please call for corrections. Dede Felix PA-C [address] [facility] [address], [place], [address], [facility] 03/21/2024 09:13:42 OBGyn Episode No OBEpisode recorded.
[2024-03-26 08:28] VITALS: BP 136/79; PULSE 113; O2SAT 98; BMI 28.0
== END 2024-03-26 08:56 | disposition home or self-care (01) ==
PROVIDERS: PCP Internal Medicine; Visit Provider Registered Nurse Emergency
DX: G62.9 Polyneuropathy, unspecified (principal); M47.816 Spondylosis without myelopathy or radiculopathy, lumbar region; M17.0 Bilateral primary osteoarthritis of knee; G89.4 Chronic pain syndrome; M51.369 Other intervertebral disc degeneration, lumbar region without mention of lumbar back pain or lower extremity pain; M70.62 Trochanteric bursitis, left hip
CPT/HCPCS: 99214; G2211

== ENCOUNTER → 2024-03-26 08:13 | Outpatient (BNVA) | payer MEDICARE, OTHER, SELFPAY | PROVIDERS: PCP Internal Medicine; Visit Provider Registered Nurse Emergency | DX: Z51.81 Encounter for therapeutic drug level monitoring (principal); F11.20 Opioid dependence, uncomplicated; M47.816 Spondylosis without myelopathy or radiculopathy, lumbar region; M17.0 Bilateral primary osteoarthritis of knee; M51.360 Other intervertebral disc degeneration, lumbar region with discogenic back pain only; M70.62 Trochanteric bursitis, left hip; G62.9 Polyneuropathy, unspecified; G89.4 Chronic pain syndrome | CPT/HCPCS: 99212 ==

== ENCOUNTER → 2024-04-23 08:05 | Outpatient (BNVA) | payer MEDICARE, OTHER, SELFPAY | PROVIDERS: PCP Internal Medicine; Visit Provider Registered Nurse Emergency | DX: Z51.81 Encounter for therapeutic drug level monitoring (principal); F11.20 Opioid dependence, uncomplicated; M47.816 Spondylosis without myelopathy or radiculopathy, lumbar region; M17.0 Bilateral primary osteoarthritis of knee; M51.360 Other intervertebral disc degeneration, lumbar region with discogenic back pain only; M70.62 Trochanteric bursitis, left hip; G62.9 Polyneuropathy, unspecified; G89.4 Chronic pain syndrome; I89.0 Lymphedema, not elsewhere classified | CPT/HCPCS: 99212 ==

== ENCOUNTER 2024-05-19 08:44 | Outpatient (AMB) | payer MEDICARE, OTHER, SELFPAY ==
--- NOTE | 2024-05-19 08:50 | A.SPINEOV_ITS ---
Vital Signs 05/19/24 08:53 Height 5 ft 2 in Weight 150 lb BMI 27.4 Intake Visit Reasons: low back pain Intake Note: Ms. Galvez is here today c/o Low back pain. Clerk Stenographer Required: No Allergies buprenorphine [Belbuca] Allergy (Unknown, Verified 05/19/24 08:53) stomach upset NSAIDS (Non-Steroidal Anti-Inflamma Allergy (Unknown, Verified 05/19/24 08:53) Stomach Upset Physical Exam Vital Signs: BMI result Body Mass Index 27.4 Assessment & Plan Assessment & Plan (1) Lumbar degenerative disc disease: Code(s): M51.369 - Other intervertebral disc degeneration, lumbar region without mention of lumbar back pain or lower extremity pain Category: Medical Plan Dear Nasreen, Mrs Galvez is a 73-year-old patient known to us from previous removal of a spinal cord stimulator in 2019. She also has previous history of a laminectomy in 2003 done at an outside hospital. She came in today to review her most recent MRI because she has had ongoing back pain now for years that has been getting worse. It is not to the point where it is unlivable but it is just persistently interfering with things that she enjoys doing at times. She has been through all the conservative management in terms of physical therapy, cortisone injections, spinal cord stimulation as well. She takes oxycodone from time to time to help with the discomfort. She can not take anti- inflammatories. She had an MRI done at [place] in January and wanted to talk about the results. Her pain is generally aggravated with activity but it can be there when she is doing prolonged sitting such as on an airplane etc.. PMH: History of left hip bursitis, knee replacement, hysterectomy, previous laminectomy, lap band surgery in 2004, thumb surgery, lymphedema, high cholesterol Social hx: She has not smoke, drink or use any recreational drugs Medications: Lipitor, Estrace, hydrochlorothiazide, magnesium, vitamin-D, Dulcolax, Colace, multivitamin, oxycodone as needed Allergies: NSAIDs Physical exam: Awake alert oriented no acute distress, she has a slight scoliotic curvature when she is standing up straight, strength and reflexes normal with the exception of the right knee which is postsurgical and does not have a reflex. Imaging review: There is a lumbar MRI as well as an abdominal CT which I reviewed. Both were done at [place], the CT scan was done in 2022 in the MRI in 2023. These show that she has fairly significant collapse of the disc space at L4-5 and L5-S1. On her CT scan coronal view from 2022 I can also see a dextroscoliosis. The CT shows very well that there is [id number] contact at both of these levels. I do not see any significant nerve compression the central canal or in the foramen. Impression: 73-year-old female presents with chronic low back pain in the setting of severe degenerative disc disease at L4-5 and L5-S1. She had a previous laminectomy/diskectomy done in 2003 with good results. That was done for lumbar radiculopathy and that went away after the surgery. Unfortunately over time no of the back pain has become the primary symptom from her lumbar spine and I think it is coming from those 2 degenerative discs. I did tell her though that we never no 100% where back pain may come from but that this is likely part of the issue. To fix this would involve spinal fusion, and Dr. Buck generally reserved this for people who can no longer tolerate the pain anymore. At this point she admits that while it is uncomfortable, it is not at the point of needing surgery. I told her if she changes her mind or something happens we would be happy to see her back and rediscuss things. Thank you for allowing us to care for your patient. The total time spent with this visit with this patient was 45 minutes reviewing history, physical exam, lumbar imaging review, and implementation of treatment plan or further diagnostic testing Fahad Buck MD,PhD [facility] Coding Level of Care Code New Pt Level 4 (03035) Diagnoses Lumbar degenerative disc disease M51.369
[2024-05-19 08:53] VITALS: BMI 27.4
--- OUTSIDE RECORDS SUMMARY | 2024-05-19 09:16 | XMS_ITS | Patient Health Record ---
Author Organization [facility] Address [address] [place] [address] Care Team Providers Care Jewelry Manager Name Role Phone Debbi Marquez MD Primary Care Provider Rashid Narayan Unavailable [phone] ALLERGIES Allergen (clinical drug ingredient) Drug/Non Drug Allergy documented on EMR Reaction Allergy Type Onset Date Status Non-steroidal anti-inflammatory agent (FN) NSAIDS (uncoded) GI upset Allergy Active REASON FOR REFERRAL No Information MEDICATIONS Medication SIG (Take, Route, Frequency, Duration) Notes Start Date End Date Status Vicodin 5-300 MG 1 tablet as needed Orally every 6 hrs Active Lyrica 225 MG 1 capsule Orally QD Active Soma 350 MG 1 tablet as needed Orally Four times a day/prn Active Estropipate Active hydroCHLOROthiazide 12.5 MG 1 capsule Or ally Once a day Active Hyoscyamine Sulfate 0.125 MG/5ML 5 ml before meals as needed Orally every 4 hrs Active Estradiol Active MoviPrep 100 GM as directed Orally a s directed for 1 dose 11/04/2013 Active Dulcolax 10 MG 1 suppository as needed Rectal Once a day Active PriLOSEC 20 MG 1 capsule Orally Onc e a day Active Vitamin D 1000 UNIT 1 tablet Orally Once a day Active Colace 100 MG 2 capsule as needed Orally Once a day Active SOCIAL HISTORY Sex Assigned At : Social History Observation Description Sex Assigned At Unknown PROBLEMS Problem Type ICD Code Onset Dates Problem Status W/U Status Risk SNOMED Code Notes Problem Irritable bowel syndrome (564.1) Active confirmed Irritable b owel syndrome (86949112) Problem Constipation (564.00) Active confirmed Constipation (48781551) Problem Screening for colorectal cancer (V76.51) Active confirmed Screening fo r malignant neoplasm of colon (779463886) Problem Abdominal bloating (R14.0) Active confirmed 155864597 Problem Abdominal gas pain (R14.1) Active confirmed 70669618 PLAN OF TREATMENT Pending Test Test Name Order Date CELIAC PANEL #10 09/17/2017 Future Test Test Name Order Date COLONOSCOPY 11/04/2013 Next Appt Details Provider Name:Rashid Wilson , 09/11/2024 10:40:00 AM, [address], [address], [place], [address], Insurance Providers Payer Name Payer Address Payer Phone Subscriber Number Group Number Insured Name Patient Relationship to Insured Coverage Start Date Coverage End Date MEDICARE OF [place] [address] [place], [place] [id number] TURNER ESPINOZA Self - patient is the insured [employer] ([employer]) [address] [place] [address] [id number] TURNER ESPINOZA Self - patient is the insured MEDICAL (GENERAL) HISTORY Medical History History ICD Code 06/07/2004 Colonoscopy w/small internal hemorrhoids Uses Hctz for edema due to the Lyrica IBS--uses Hyoscyamine prn wi th relief--constipation, but stable on her bowel regimen Hyperlipidemia Shingles Denies ID,DM,CVA,Lung disease,renal dise ase Back pain with disc disease- -use Vicodin QID-has a neuropain stimulator in place Surgical History Surgery Date(Month/Year) tonsillectomy 1971 hysterectomy 2008 cystocele repair 2008 bunionectomy 2008 laminectomy 2003 cholecystectomy 1988 shoulder surgery-right right knee arthroscopy 2002 appendectomy 09/01/2013 lap band insertion--Dr. Tierney-lost 30 # Marsupialization for Bartholin's glands cysts and infections
--- OUTSIDE RECORDS SUMMARY | 2024-05-19 09:17 | XMS_ITS | Data Portability ---
Author Organization [facility], [facility] Address [address] [place] [address] Care Team Providers Care Hand Decorator Name Role Phone JEREMY THAKKAR Primary Care [...] Organization Details Recorded Time No complaint s 857230135 Active Status: 'I'; Not Available [facility] 4 09:25:07 Pain of left shoulder joint 387734804703 85041 Active 2023 Dede Felix PA-C [address], [place], [address] , [facility] 4 12:33:30 Idiopathi c osteoarth ritis 554803057 Active 2019 Problem Code: M17.0; Problem Code Type: ICD-10; Status: 'A'; Not Available [facility] 4 11:57:27 Bilateral shoulder osteoarth ritis 762656745661 108 Active 2023 Dede Felix PA-C [address], [place], [address] , [facility] 4 09:08:04 Osteoarth ritis of joint of left shoulder region 665266040426 108 Active 2023 Dede Felix PA-C [address] [facility], [place], [address] , [facility] 16:55:44 Problem Notes None recorded. Procedures Surgical History Date Name Laterality Status Provider Name and Address Organization Details Recorded Time 5 Sports Shoulder completed Dede Park PA-C [address], [place], [address], [facility] 03/20/2024 12:33:07 4 Sports Shoulder completed Dede Felix PA-C [address], [place], [address], [facility] 12/03/2023 12:32:04 4 Sports Shoulder completed Dede Felix PA-C [address] [facility], [place], [address], [facility] 08/30/2023 16:55:10 4 Shoulder Kenalog 2cc Injection, Bilateral completed Dede Felix PA-C [address] [facility], [place], [address], [facility] 06/01/2023 09:07:52 Imaging Results None recorded. Procedure Notes None recorded. Medical Equipment None Reported. Allergies Allergen ID Allergen Name Allergen Category Reaction Reaction Severity Criticality Documentation Date Start Date Code Code System Note Provider Name and Address Organization Details Recorded Time 09912 Non-stero idal anti-infl ammatory agent (product) medicatio n Not available Not available Not available 05/21/20232012 27958 005 SNOMED Not Available [facility] 4 12:44:51 Medications Name Sig Start Date Stop [...] and Address Organization Details Last Updated DateTime 06/01/2023 157.48 cm 32.6 kg/m2 10249.44 g Sri Alvaro [facility] 06/01/2023 08:55:44 Date Recorded Body height Body mass index (BMI) Body weight Provider Name and Address Organization Details Last Updated DateTime 08/30/2023 157.48 cm 32.6 kg/m2 64580.44 g CHRISTY VONDA Angela [facility] 08/30/2023 08:53:29 Date Recorded Body height Body mass index (BMI) Body weight Provider Name and Address Organization Details Last Updated DateTime 12/03/2023 157.48 cm 32.6 kg/m2 53960.44 g CHRISTY VONDA Angela [facility] 12/03/2023 13:39:54 Date Recorded Body height Body mass index (BMI) Body weight Provider Name and Address Organization Details Last Updated DateTime 03/21/2024 157.48 cm 32.6 kg/m2 78433.44 g RUTHIE NEWELL [facility] 03/21/2024 08:26:33 Social History Question Answer Notes LastModified by Organizat ion Details LastModified Time Tobacco Smoking Status Former Smoker CHRISTY shine [facility] 08/30/2023 08:54:11 What Is Your Level Of Alcohol Consumption? None olguinmejia Information not available 08/30/2023 When Did You Quit Smoking? 16+yearssin celastcigar ette Information not available 08/30/2023 Which Of Your Hands Is Dominant? Right Information not available 08/30/2023 Do You Use Any Illicit Or Recreational Drugs? No Information not available 08/30/2023 Do You Or Have You Ever Used Any Other Forms Of Tobacco Or Nicotine? No Information not available 08/30/2023 Sex: Unknown Functional [...] SNOMED-CT Code Diagnosis ICD10 Code Diagnosis Note [id number] Dede Felix PA-C [address] [place] [address] 06/01/2023 08:34:49 06/01/2023 09:16:45 Bilateral shoulder osteoarthritis 6064712965 33542 M19.011 M19.204 [id number] Dede Felix PA-C [address] [place] [address] 08/30/2023 08:36:22 09/19/2023 13:31:49 Osteoarthritis of joint of left shoulder region 5471356843 47134 M19.278 [id number] Dede Felix PA-C [address] [place] [address] 12/03/2023 13:34:06 12/13/2023 09:36:44 Pain of left shoulder joint 4301072314 8455103 M25.906 [id number] Dede Park PA-C [facility] - [address] [place] [address] 03/21/2024 08:16:46 04/07/2024 10:04:41 Pain of left shoulder joint 7290532151 3980846 M25.512 Health Concerns Section Related Observation LastModified by Organization Detai ls LastModified Time None Recorded Concern Status LastModified by Organization Details LastModified Time None Recorded Advance Directives Directive None Recorded Payers Encounter Date Sequence Insurance Name Policy Number Policy Van Covered Member ID Van Member ID Guarantor Name 06/01/2023 1 [place]ICARE B[place]: [employer] [facility] Leandra Galvez [id number] Leandra aGlvez 06/01/2023 2 UNICARE - SENIOR SERVICES PLAN F (MEDICARE SUPPLEMENT) [id number] Leandra Galvez [id number] Leandra Galvez 08/30/2023 1 [place]: [employer] Leandra Galvez [id number] Leandra Galvez 08/30/2023 2 UNICARE - SENIOR SERVICES PLAN F (MEDICARE SUPPLEMENT) [id number] Leandra Galvez [id number] Leandra Galvez 12/03/2023 1 [place] B-[place]: [facility] Leandra Galvez [id number] Leandra Galvez 12/03/2023 2 UNICARE - SENIOR SERVICES PLAN F (MEDICARE SUPPLEMENT) [id number] Leandra Galvez [id number] Leandra Galvez 03/21/2024 1 [place] [facility] SERVICES Leandra Galvez [id number] Leandra Galvez 03/21/2024 2 UNIC[employer] - SENIOR SERVICES PLAN F (MEDICARE SUPPLEMENT) [id number] Leandra Galvez [id number] Leandra Galvez Notes Date Note Type Note Provider Name and Address Organization Details Recorded Time 06/01/2023 text/html I am seeing the patient today under the supervision of Dr. Troy who was available but did not see the patient.HPI: 72-year-old female patient presents today for bilateral shoulder pain, right worse than left. She reports she was working outside doing yardwork in her shoulders become sore. She was evaluated previously for her left [...] is located in the patient's chart. PHYS EXAMINATION:The patient is well appearing and in no [...] reflexes, sensation are within normal limits. X-RAYS:Previous 4 view x-rays of the right shoulder reviewed at [facility] today. AP view demonstrates mild glenohumeral joint space narrowing, cystic change at the greater tuberosity of the humeral, well preserved AC joint space. Outlet view demonstrates type I acromion. Axillary view demonstrates humeral head centered.Previous left shoulder x-rays demonstrated type II acromion, humeral head centered, mild glenohumeral joint osteoarthritis, moderate AC joint degenerative change. IMPRESSION: Bilateral shoulder- mild osteoarthritis and rotator cuff tendinopathy PLAN: We discussed the x-ray and physical exam findings today. Last cortisone injection into bilateral shoulders 12-19-22 provided her with excellent relief of symptoms. We discussed it is possible she has a partial or full thickness rotator cuff tear, however, she would like to avoid surgical intervention at this time, therefore we will hold off on ordering MRI.She understands waiting could make a tear irreparable. She elected to proceed with repeat bilateral shoulder cortisone injections today. Will follow-up as nedded for recheck. All of her concerns are addressed and she understands and agrees with the plan.After discussion, the patient elected today to undergo cortisone injection. After explaining risks and benefits, under meticulous aseptic technique a total of 1cc 40mg kennalog mixed with 4cc .25% Marcaine without epinephrine was injected into bilateral shoulders. Patient tolerated the injection well. We discussed that the pain may be increased for a couple of days, moderating activities with the upper extremities and ice recommended.Risks of injection: Steroid injections are considered a safe and minimally invasive technique, however, as with any procedure there are potential complications that can occur. The most common complications include pain flare-ups, skin or fat atrophy, increase in glucose levels in diabetic patients, and facial flushing. Less common side effects include infection and tendon rupture. Speech recognition applications sales representative software was used to create portions of this document. An attempt at proofreading has been made to minimize errors. Please call for corrections. Dede Felix PA-C [address] [facility] [address] [address], [place], [address], [facility] 06/01/2023 13:22:14 08/30/2023 text/html I am seeing the patient today under the supervision of Dr. Troy who was available but did not see the patient.CLINICAL UPDATE: 72-year-old right hand dominant female patient presents today for left shoulder pain. Last bilateral shoulders cortisone injection 06/01/23 provided good relief. Pain 6/10. HPI: She was evaluated previously for her [...] is located in the patient's chart. PHYS EXAMINATION:The patient is well appearing and in no [...] reflexes, sensation are within normal limits. X-RAYS:Previous 4 view x-rays right shoulder reviewed at [facility] today. AP view demonstrates mild glenohumeral joint space [...] and rotator cuff tendinopathy, left more symptomatic today PLAN: Findings reviewed. Last cortisone injection into bilateral shoulders 06-01-23 provided her with excellent relief of symptoms. We discussed it is possible she has a partial or full thickness rotator cuff tear, however, she would like to avoid surgical intervention at this time, therefore we will hold off on ordering MRI. She understands waiting could make a tear irreparable. She elected to proceed with repeat bilateral left shoulder cortisone injections today. Will follow-up as needed for recheck. All of her concerns are addressed and she understands and agrees with the plan. Speech recognition applications sales representative software was used to create portions of this document. An attempt at proofreading has been made to minimize errors. Please call for corrections. Dede Felix PA-C [address] [facility] [address], [place], [address], [facility] 08/30/2023 16:56:13 12/03/2023 text/html I am seeing the patient today under the supervision of Dr. Wilson who was available but did not see the patient.CLINICAL UPDATE: 73-year-old right hand dominant female patient presents today for left shoulder pain. Last left shoulder cortisone injection 08/30/23 provided good relief. HPI: She was evaluated previously for her [...] normal limits. X-RAYS:Previous 4v x-rays right shoulder reviewed at [facility] today. AP view demonstrates mild glenohumeral joint space [...] and agrees with the plan. Speech recognition applications sales representative software was used to create portions of this document. An attempt at proofreading has been made to minimize errors. Please call for corrections. Dede Felix PA-C [address] [place] [address] Suite [facility], [place], [address], [facility] 12/03/2023 13:56:44 03/21/2024 text/html I am seeing the patient [...] and agrees with the plan. Speech recognition applications sales representative software was used to create portions of this document. An attempt at proofreading has been made to minimize errors. Please call for corrections. Dede Park PA-C [address] [facility] [address], [place], [address], [facility] 03/21/2024 09:13:42 OBGyn Episode No OBEpisode recorded.
--- OUTSIDE RECORDS SUMMARY | 2024-05-19 09:17 | XMS_ITS | Patient Health Record ---
Author Organization [facility] Address [address] [place] [address] Care Team Providers Care Pension Agent Name Role Phone Alma IVORY, Debbi Garcia Primary Care Provider Un available Ratna Chua Unavailable [phone] Emanuel Crawford Unavailable [phone] Allergies Allergen (clinical drug ingredient) Drug/Non Drug [...] primary osteoarthritis of the ankle and/or foot (859682484) Primary osteoarthriti s, left ankle and foot (M19.072) Active confirmed Problem Acquired hallux valgus (19410483) Hallux valgus (acquired), left foot (M20.12) Active confirmed Problem Acquired hammer toe of left foot (5070586810674345) Other hammer toe(s) (acquired), left foot (M20.42) Active confirmed Problem 516973231 Lymphedema (I89.0) Active confirmed Problem 63957983952954578 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 Vital Signs Blood pressure diastolic 75 mm Hg 03/20/2024 Height 5ft2in in 03/20/2024 Blood pressure systolic 126 mm Hg 03/20/2024 Weight 150 lbs 03/20/2024 BMI 27.43 kg/m2 03/20/2024 Procedures Procedure Date Ordered Date Performed Result Body Sit e , E3621-HVKDC/INJECT, JOINT/BURSA 03/20/2024 N/A Encounters Encounter Location Date Provider Diagnosis [facility] [address] [place] [address] 08/22/2023 Emanuel Crawford Pain in left foot M79.672 ; Primary osteoarthritis, left ankle and foot M19.072 ; Metatarsalgia, left foot M77.42 ; 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 ; Other hammer toe(s) (acquired), left foot M20.42 ; Peroneal tendinitis of left lower extremity M76.72 and Hallux valgus (acquired), left foot M20.[address] [address] 11/29/2023 Emanuel Crawford Pain in left foot M79.672 ; Primary osteoarthritis, left ankle and foot M19.072 ; Metatarsalgia, left foot M77.42 ; 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 ; Other hammer toe(s) (acquired), left foot M20.42 ; Peroneal tendinitis of left lower extremity M76.72 ; Hallux valgus (acquired), left foot M20.12 and Lymphedema I89.[address] [address] 03/20/2024 Ratna Chua Sinus tarsitis of left [...] J0702- INJECT or DRAIN, JOINT/BUR SA 03/08/2023, Z7552-CIYXU/INJECT, JOINT/BURSA 0 03/20/2024, D1611-EHRKR/INJECT, JOINT/BURSA 0 10/16/2018 X ray : Ankle, right 3V 09/05/2011 Next Appt Details Provider Name:Ratna Lopez deb, 07/24/2024 09:00:00 AM, [address] [place], [address], Insurance Providers Payer Name Payer Address Payer Phone Subscriber Number Group Number Insured Name Patient Relationship to Insured Coverage Start Date Coverage End Date Medicare [facility] [address] [place] [address] [phone] [id number] Leandra Galvez Self - patient is the insured [facility] [address] [place] [address] [phone] [id number] Leandra Galvez Self - patient is [...] abdominoplasty 11/11 Pain Stimulator removed- 3 days [facility] 08/28/2018
--- OUTSIDE RECORDS SUMMARY | 2024-05-19 09:17 | XMS_ITS ---
[facility] Organization [facility] Address [address] [place] [address] Care Team Providers Care Kosher Dietary Service Supervisor Name Role Phone Alma IVORY, Debbi Garcia Primary Care Provider Un available Ratna Chua Unavailable [phone] Emanuel Crawford Unavailable [phone] Allergies Allergen (clinical drug ingredient) Drug/Non Drug [...] Problem Status W/U Status Risk Notes Problem 507161820 Lymphedema (I89.0) Active confirmed Vital Signs Height 5ft 2in in 11/29/2023 Weight 177 lbs 11/29/2023 BMI 32.37 kg/m2 11/29/2023 Blood pressure systolic 124 mm Hg 11/29/19 24 Blood pressure diastolic 68 mm Hg 024 Encounters Encounter Location Date Provider Diagnosis [facility] [place] [address] [place] [address] 11/29/2023 Emanuel Crawford Pain in left foot [...] Provider Name:Ratna Bianchicolin boyd, 07/24/2024 09:00:00 AM, [address] [place] [address], [address], Procedure Notes * Category Sub-Category Detail [...] at peroneal insertion Med: Joint,Bursa (Sinus Tarsi,AJ) 24593, J0702 Injection # Med/Ankle joint bursa/capsule 1cc [...] Leandra ESPINOZA ADOB: [birth year] (73 yo F)Acc No.[id number]:11/29/2023 Progress Note Patient:?Leandra Espinoza Provider:?Emanuel Crawford DPM :1950???Age:73 Y???Sex:Female D ate:11/29/2023 [facility] Pcp:Wilberto Cook Subjective: * Chief Complaints: * [...] and abdominoplasty 11/11/2014Pain Stimulator removed- 3 days [facility] 08/28/2018 * Hospitalization/Major Diagno stic Procedure:?Denies Past [...] - I89.0? Plan: * Treatment: * Procedures:?Injection:?Tendon Origin/insertion?20652, J0702 Injection - Tendon Origin/Insertion w/ mixture [...] LEFT ankle --AL aspect .? * Procedure Codes:?10846 INJEC T TENDON ORIGIN/INSERT, Modifiers: XS J0702 [...] DPM Date:? 024 Generated for Yissel patel/Luca/Faheemitting on:?05/19/2024 09:17 AM EST History and Physical Notes * [...]
--- OUTSIDE RECORDS SUMMARY | 2024-05-19 09:17 | XMS_ITS | Clinical Summary ---
Author Organization [facility] Address [address] [place] [address] Care Team Providers Care Team Leader Name Role Phone Unavailable Primary Care Provider Unavailabl e Social History Tobacco Use Types Packs/Day Years Used Date Smoking Tobacco: Never Assessed Comments Unknown Sex and Gender Information Value Date Recorded Sex Assigned at Not on file Legal Sex Female 5:25 PM EST Gender Identity Not on file Sexual Orientation Not on file Plan of Treatment Health Maintenance Due Date Last Done Comments Breast Cancer Screening 1950 DTaP,Tdap,and Td Vaccines (1 - Tdap) 10/24/1971 Pneumococcal Vaccine: 50+ Ye ars (1 of 1 - PCV) 2002 Zoster Vaccines (1 of 2) 2002 COVID-19 Vaccine ( - 2023-2 5 season) 2023 Influenza Vaccine (#1) 2023 RSV Immunization Patients 60 + Years Old (1 - 1-dose 75+ series) 10/24/2027 HIB Vaccines Aged Out No longer eligi ble based on patient's age to complete this topic HPV Vaccines Aged Out No longer eligi ble based on patient's age to complete this topic Hepatitis A Vaccines Aged Out No long er eligible based on patient's age to complete this topic Hepatitis B Vaccines Aged Out No long er eligible based on patient's age to complete this topic IPV Vaccines Aged Out No longer eligi ble based on patient's age to complete this topic MMR Vaccines Aged Out No longer eligi ble based on patient's age to complete this topic Meningococcal ACWY Vaccine Aged Out N o longer eligible based on patient's age to complete this topic Meningococcal B Vacine Aged Out No lo nger eligible based on patient's age to complete this topic RSV Immunization Patients Un meet 20 months Aged Out No longer eligible b ased on patient's age to complete this topic Varicella Vaccines Aged Out No longer eligible based on patient's age to complete this topic
--- OUTSIDE RECORDS SUMMARY | 2024-05-19 09:17 | XMS_ITS ---
Author Organization [facility] Address [address] [place] [address] Care Team Providers Care State Patrol Officer Name Role Phone Alma IVORY, Debbi Garcia Primary Care Provider Un available Ratna Chua Unavailable [phone] Allergies Allergen (clinical drug ingredient) Drug/Non Drug [...] Date Performed Result Body Sit e , R2750-CFTFU/INJECT, JOINT/BURSA 03/20/2024 N/A Encounters Encounter Location Date Provider Diagnosis [facility] [address] [address] 03/20/2024 Ratna Chua Sinus tarsitis of left [...] Pending Test Test Name Order Date , K6409-FFFDI/INJECT, JOINT/BURSA 0 03/20/2024 Next Appt Details Follow Up: 3 Months, Reason: Provider Name:Ratna boyd, 07/24/2024 09:00:00 AM, [address] [place] [address], [address], Procedure Notes * Category Sub-Category Detail Notes [...] Leandra ESPINOZA ADOB: [birth year] (73 yo F)Acc No.[id number]:03/20/2024 Progress Note Patient:?Leandra ESPINOZA Provider:?Ratna Chua DPM :1950???Age:73 Y???Sex:Female D ate:03/20/2024 Address:[address] [place], [place] [id number] Pcp:Wilberto Cook Subjective: * Chief Complaints: * [...] and abdominoplasty 11/11/2014Pain Stimulator removed- 3 days [facility] 08/28/2018 * Hospitalization/Major Diagno stic Procedure:?Denies [...] of 10.? * Procedure Codes:? DRAIN /INJECT, JOINT/NNUAQB3560 INJ BETAMETHSN ACTAT&SOD PHOSPH-3MG * Preventive Medicine:? [...] DPM Date:?0 03/20/2024 Generated for Yissel patel/Luca/Han on:?05/19/2024 09:16 AM EST History and Physical Notes * [...]
--- OUTSIDE RECORDS SUMMARY | 2024-05-19 09:17 | XMS_ITS ---
Author Organization [facility] Address [address] [place] [address] Care Team Providers Care Learning And Development Consultant Name Role Phone Alma IVORY, Debbi Garcia Primary Care Provider Un available Ratna Chua Unavailable [phone] Encounters Encounter Location Date Provider Diagnosis [facility] [address] [place] [address] 03/20/2024 Ratna Chua Plan Of Treatment Next Appt Details Provider Name:Ratna boyd, 07/24/2024 09:00:00 AM, [address] [place], [address], Progress Notes * Leandra ESPINOZA ADOB: [birth year] (73 yo F)Acc No.[id number]:03/20/2024 Progress Note Patient:?Leandra ESPINOZA Provider:?Ratna Chua DPM :1950???Age:73 Y???Sex:Female D ate:03/20/2024 Address:[address] [place] [address] Pcp:Wilberto Cook Subjective: * Chief Complaints: * ??? * [...]
== END 2024-05-19 09:21 | disposition home or self-care (01) ==
PROVIDERS: PCP Internal Medicine; Visit Provider Physician Assistant
DX: M51.369 Other intervertebral disc degeneration, lumbar region without mention of lumbar back pain or lower extremity pain (principal)
CPT/HCPCS: 99204

== ENCOUNTER → 2024-05-19 08:44 | Outpatient (BNVA) | payer MEDICARE, OTHER, SELFPAY | PROVIDERS: PCP Internal Medicine; Visit Provider Physician Assistant | DX: M51.369 Other intervertebral disc degeneration, lumbar region without mention of lumbar back pain or lower extremity pain (principal) | CPT/HCPCS: 99202 ==

== ENCOUNTER 2024-05-20 12:31 | Outpatient (REF) | payer MEDICARE, OTHER, SELFPAY ==
--- NOTE | ~2024-05-20 | MM_ITS ---
EXAMINATION: DXA BONE DENSITY AXIAL HISTORY: Estrogen deficiency TECHNIQUE: My Single Point Dual energy absorptiometry (DEXA) of the lumbar spine, total left hip, and femoral neck was performed. COMPARISON: Comparison is made with the prior examination dated 01/12/2020. FINDINGS: The bone mineral density of the lumbar spine is 1.002 with a T-score of -1.4, and a Z-score of 0.3. This represents a BMD change of -8.2% compared to the prior exam. This is statistically significant. The bone mineral density of the left total hip is 0.906 with a T-score of -0.8, and a Z-score of 0.7. This represents BMD change of -1.0% compared to the prior exam. This is not statistically significant. The bone mineral density of the left femoral neck is 0.886 with a T-score of -1.1, and a Z-score of 0.7. This represents BMD change of -1.9% compared to the prior exam. FRACTURE RISK: The FRAX index suggests a ten year probability of major osteoporotic fracture of 9.3%, and of hip fracture 1.1%. MM/XR DEXA axial skeleton IMPRESSION: Based on bone mineral density, and according to World Health Organization (WHO) criteria, the diagnosis is consistent with osteopenia. All bone density values are in grams per centimeter squared (g/cm2). Statistically, 68% of repeat scans fall within 1 SD (+/- 0.010 g/cm2 for AP spine L1-L4) and 1 SD (+/- 0.012 g/cm2 for femur total) FRAX is a trademark of the [employer]'s [employer] Metabolic Bone Disease, a World Health Organization (WHO) Collaborating Center. Electronically signed by: Rashid Martel MD 05/23/2024 07:28 AM [facility]
--- NOTE | ~2024-05-20 | MM_ITS ---
EXAMINATION: MM SCREENING DIGITAL BREAST TOMOSYNTHESIS, BILATERAL CLINICAL INFORMATION: Screening. Asymptomatic. COMPARISON: Mammography: Comparison is made with available priors TECHNIQUE: Digital breast mammography with tomosynthesis is performed in both the craniocaudal and mediolateral oblique views along with computer-aided detection (CAD). FINDINGS: The breasts are heterogeneously dense, which may obscure small masses (ACR BI-RADS breast composition Category c). Bilateral circumscribed oval masses which wax and wane consistent with benign fibrocystic changes. Circumscribed oval mass upper outer right breast posterior depth similar in size in 2021 and 2020 waxing and waning previously. Post reduction mammoplasty changes. There are no significant masses, abnormal calcifications, or other abnormalities. MM/MM tomosynthesis screening BI IMPRESSION: No mammographic evidence of malignancy. ASSESSMENT: BI-RADS BI-RADS 2 - Benign Findings RECOMMENDATION: Routine annual mammography screening. 1 year F/U This examination should not preclude the clinical evaluation of a suspicious palpable abnormality. This patient's information was entered into a reminder system with a target due date for their next mammogram. Electronically signed by: Chrystal Parker DO 05/22/2024 11:41 AM [facility]
--- OUTSIDE RECORDS SUMMARY | 2024-05-20 15:34 | XMS_ITS | Patient Health Record ---
Author Organization [facility] Address [address] [place] [address] Care Team Providers Care Shredding Specialist Name Role Phone Alma IVORY, Debbi Garcia Primary Care Provider Un available Ratna Chua Unavailable [phone] Emanuel Crawford Unavailable [phone] Allergies Allergen (clinical drug ingredient) Drug/Non Drug [...] primary osteoarthritis of the ankle and/or foot (608311962) Primary osteoarthriti s, left ankle and foot (M19.072) Active confirmed Problem Acquired hallux valgus (27305206) Hallux valgus (acquired), left foot (M20.12) Active confirmed Problem Acquired hammer toe of left foot (4134455354342273) Other hammer toe(s) (acquired), left foot (M20.42) Active confirmed Problem 034369254 Lymphedema (I89.0) Active confirmed Problem 83713556716950183 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 Vital Signs Blood pressure diastolic 75 mm Hg 03/20/2024 Height 5ft2in in 03/20/2024 Blood pressure systolic 126 mm Hg 03/20/2024 Weight 150 lbs 03/20/2024 BMI 27.43 kg/m2 03/20/2024 Procedures Procedure Date Ordered Date Performed Result Body Sit e , Q1069-ZXSLK/INJECT, JOINT/BURSA 03/20/2024 N/A Encounters Encounter Location Date Provider Diagnosis [facility] [place] [address] [place] [address] 08/22/2023 Emanuel Crawford Pain in left foot M79.672 ; Primary osteoarthritis, left ankle and foot M19.072 ; Metatarsalgia, left foot M77.42 ; 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 ; Other hammer toe(s) (acquired), left foot M20.42 ; Peroneal tendinitis of left lower extremity M76.72 and Hallux valgus (acquired), left foot M20.[address] [address] 11/29/2023 Emanuel Crawford Pain in left foot M79.672 ; Primary osteoarthritis, left ankle and foot M19.072 ; Metatarsalgia, left foot M77.42 ; 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 ; Other hammer toe(s) (acquired), left foot M20.42 ; Peroneal tendinitis of left lower extremity M76.72 ; Hallux valgus (acquired), left foot M20.12 and Lymphedema I89.[address] [address] 03/20/2024 Ratna Chua Sinus tarsitis of left [...] J0702- INJECT or DRAIN, JOINT/BUR SA 03/08/2023, C7731-XUUGJ/INJECT, JOINT/BURSA 0 03/20/2024, Y8697-RSAHT/INJECT, JOINT/BURSA 0 10/16/2018 X ray : Ankle, right 3V 09/05/2011 Next Appt Details Provider Name:Ratna Lopez deb, 07/24/2024 09:00:00 AM, [address] [place], [address], Insurance Providers Payer Name Payer Address Payer Phone Subscriber Number Group Number Insured Name Patient Relationship to Insured Coverage Start Date Coverage End Date Medicare National [facility] [address] [facility] [place] [address] [id number] Leandra Galvez Self - patient is the insured [facility] ([facility] [address] [place] [address] [phone] [id number] Leandra Galvez Self - patient is [...] abdominoplasty 11/11 Pain Stimulator removed- 3 days [facility] [place] 08/28/2018
--- OUTSIDE RECORDS SUMMARY | 2024-05-20 15:34 | XMS_ITS | Clinical Summary ---
Author Organization [facility] Address [id number] [place] [address] Care Team Providers Care Machine Guide Base Winder Name Role Phone Unavailable Primary Care Provider [...]
--- OUTSIDE RECORDS SUMMARY | 2024-05-20 15:34 | XMS_ITS | Patient Health Record ---
Author Organization [facility] Address [address] [place] [address] Care Team Providers Care Early Childhood Teacher Assistant Name Role Phone Debbi Marquez MD Primary Care Provider Rashid Narayan Unavailable [phone] ALLERGIES Allergen (clinical drug ingredient) Drug/Non Drug [...] (564.1) Active confirmed Irritable b owel syndrome (50872933) Problem Constipation (564.00) Active confirmed Constipation (37180346) Problem Screening for colorectal cancer (V76.51) Active confirmed Screening fo r malignant neoplasm of colon (541322517) Problem Abdominal bloating (R14.0) Active confirmed 861516492 Problem Abdominal gas pain (R14.1) Active confirmed 42793158 PLAN OF TREATMENT Pending Test Test Name Order Date CELIAC PANEL #10 09/17/2017 Future Test Test Name Order Date COLONOSCOPY 11/04/2013 Next Appt Details Provider Name:Rashid Wilson , 09/11/2024 10:40:00 AM, [address], [address], [place], [address], Insurance Providers Payer Name Payer Address Payer Phone Subscriber Number Group Number Insured Name Patient Relationship to Insured Coverage Start Date Coverage End Date MEDICARE OF [place] [address] [place], [place] [id number] [phone] [id number] TURNER ESPINOZA Self - patient is the insured [employer] ([employer]) [address] [place] [address] [id number] TURNER ESPINOZA Self - patient is the insured MEDICAL (GENERAL) HISTORY Medical History History ICD Code 06/07/2004 Colonoscopy w/small internal hemorrhoids Uses Hctz for edema due to the Lyrica IBS--uses Hyoscyamine prn wi th relief--constipation, but stable on her bowel regimen Hyperlipidemia Shingles Denies NH,DM,CVA,Lung disease,renal dise ase Back pain with disc disease- -use Vicodin QID-has a neuropain stimulator in place Surgical History Surgery Date(Month/Year) tonsillectomy 1971 hysterectomy 2008 cystocele repair 2008 bunionectomy 2008 laminectomy 2003 cholecystectomy 1988 shoulder surgery-right right knee arthroscopy 2002 appendectomy 09/01/2013 lap band insertion--Dr. Tierney-lost 30 # Marsupialization for Bartholin's glands cysts and infections
--- OUTSIDE RECORDS SUMMARY | 2024-05-20 15:34 | XMS_ITS ---
Author Organization [facility] Address [address] [place] [address] Care Team Providers Care Production Proofreader Name Role Phone Alma IVORY, Debbi Garcia Primary Care Provider Un available Ratna Chua Unavailable [phone] Allergies Allergen (clinical drug ingredient) Drug/Non Drug [...] Date Performed Result Body Sit e , K0733-YBZVO/INJECT, JOINT/BURSA 03/20/2024 N/A Encounters Encounter Location Date Provider Diagnosis [facility] [address] [address] 03/20/2024 Ratna Chua Sinus tarsitis of left [...] Pending Test Test Name Order Date , Z8902-HCLGC/INJECT, JOINT/BURSA 0 03/20/2024 Next Appt Details Follow Up: 3 Months, Reason: Provider Name:Ratna boyd, 07/24/2024 09:00:00 AM, [address] [place] [address], [address], Procedure Notes * Category Sub-Category Detail Notes [...] Leandra ESPINOZA ADOB: [birth year] (73 yo F)Acc No.[id number]:03/20/2024 Progress Note Patient:?Leandra ESPINOZA Provider:?Ratna Chua DPM :1950???Age:73 Y???Sex:Female D ate:03/20/2024 Address:[address] [place], [place] [address] Pcp:Wilberto Cook Subjective: * Chief Complaints: * [...] problem?denies.?Genitourinary:?Blood urine?denies.?Frequent/Painfu/urination/bladder control?denies.?Kidney stones?denies.?Infection (UTI)?denies.?Nephropathy?denies.?sex trans dis (STD)?denies.?Prostate?denies.?Musculoskeletal:?aKtia?denies.?Bunions?denies.?Back Pain?denies.?Muscle Cramps/ Resting?denies.?Muscle cramps / walking?denies.?Generalized aches and pains?denies.?Weakness?denies.?Integ.:?Bowman?denies.?Scars?denies.?Corns/calluses?denies.?Ingrown nails?denies.?Painful nails?denies.?Open Sores?denies.?Rashes?denies.?Neurologic:?Difficulty sleeping?denies.?Brain disorder?denies.?Numbness?denies.?Balance trouble?denies.?Confusion?denies.?Fainting/blackouts?denies.?Tingling?denies.?Tr emors?denies.? * Medical History:? * Surgical History:?left foot delio bunion 2009hysterectomy 2009bladder removal 1989Laminectomy left sciatica 2004tonsillectomy 1971lap band insertion 2005cystocele repair 2013Right shoulder arthroscopy 1990right thumb arthroscopy 2015left thumb arthroscopy 2017Appendectomy 09/01/2013reast reduction and abdominoplasty 11/11/2014Pain Stimulator removed- 3 days [facility] 08/28/2018 * Hospitalization/Major Diagno stic Procedure:?Denies [...] of 10.? * Procedure Codes:? DRAIN /INJECT, JOINT/CSRYHY8244 INJ BETAMETHSN ACTAT&SOD PHOSPH-3MG * Preventive Medicine:? [...] DPM Date:?0 03/20/2024 Generated for Yissel patel/Luca/Han on:?05/20/2024 03:34 PM EST History and Physical Notes * [...]
--- OUTSIDE RECORDS SUMMARY | 2024-05-20 15:35 | XMS_ITS ---
Author [facility] Address [address] [place] [address] Care Team Providers Care Box Shook Patcher Name Role Phone Alma IVORY, Debbi Garcia Primary Care Provider Un available Ratna Chua Unavailable [phone] Emanuel Crawford Unavailable [phone] Allergies Allergen (clinical drug ingredient) Drug/Non Drug [...] Problem Status W/U Status Risk Notes Problem 083607650 Lymphedema (I89.0) Active confirmed Vital Signs Height 5ft 2in in 11/29/2023 Weight 177 lbs 11/29/2023 BMI 32.37 kg/m2 11/29/2023 Blood pressure systolic 124 mm Hg 11/29/19 24 Blood pressure diastolic 68 mm Hg 024 Encounters Encounter Location Date Provider Diagnosis [facility] [place] [address] [place] [address] 11/29/2023 Emanuel Crawford Pain in left foot [...] Provider Name:Ratna Bianchicolin boyd, 07/24/2024 09:00:00 AM, [address] [place] [address], [address], Procedure Notes * Category Sub-Category Detail [...] at peroneal insertion Med: Joint,Bursa (Sinus Tarsi,AJ) 45049, J0702 Injection # Med/Ankle joint bursa/capsule 1cc [...] Leandra ESPINOZA ADOB: [birth year] (73 yo F)Acc No.[id number]:11/29/2023 Progress Note Patient:?Leandra Espinoza Provider:?Emanuel Crawford DPM :1950???Age:73 Y???Sex:Female D ate:11/29/2023 [facility] [place] Pcp:Wilberto Cook Subjective: * Chief Complaints: * [...] and abdominoplasty 11/11/2014Pain Stimulator removed- 3 days [facility] 08/28/2018 * Hospitalization/Major Diagno stic Procedure:?Denies [...] - I89.0? Plan: * Treatment: * Procedures:?Injection:?Tendon Origin/insertion?07425, J0702 Injection - Tendon Origin/Insertion w/ mixture [...] LEFT ankle --AL aspect .? * Procedure Codes:?17914 INJEC T TENDON ORIGIN/INSERT, Modifiers: XS J0702 [...] DPM Date:? 024 Generated for Yissel patel/Luca/Han on:?05/20/2024 03:34 PM [...]
== END 2024-05-20 12:32 | disposition home or self-care (01) ==
LOC: HO.MAMMO 12:31
PROVIDERS: PCP Internal Medicine; Visit Provider Internal Medicine
DX: Z12.31 Encounter for screening mammogram for malignant neoplasm of breast (principal); Z13.820 Encounter for screening for osteoporosis; Z78.0 Asymptomatic menopausal state
CPT/HCPCS: 77063; 77067; 77080

== ENCOUNTER → 2024-05-20 12:45 | Outpatient (BNV) | payer MEDICARE, OTHER, SELFPAY | PROVIDERS: PCP Internal Medicine; Visit Provider Internal Medicine | DX: Z12.31 Encounter for screening mammogram for malignant neoplasm of breast (principal) | CPT/HCPCS: 77063; 77067 ==

== ENCOUNTER 2024-05-22 08:11 | Outpatient (AMB) | payer MEDICARE, OTHER, SELFPAY ==
--- NOTE | 2024-05-22 08:22 | MHC.OFFVIS ---
Vital Signs 05/22/24 08:29 Height 5 ft 2 in Weight 150 lb BMI 27.4 BP 92/56 L Blood Pressure Location Lt brachial Position Sitting Pulse 96 Pulse Source Pulse Oximeter Pulse Oximetry (%) 98 Oxygen Delivery Method Room Air Intake Visit Reasons: Pill count/Nasreen on vacation Intake Note: Leandra comes in today for a pill count to oxycodone, patient should have 2 tablets and presets with 2 tablets which she last took last night 05/21/24 at 5:30pm. Pain today 05/26 Armed Security Officer Required: No Accompanied by: Self / Same As Patient Allergies buprenorphine [Belbuca] Allergy (Unknown, Verified 05/22/24 08:29) stomach upset NSAIDS (Non-Steroidal Anti-Inflamma Allergy (Unknown, Verified 05/22/24 08:29) Stomach Upset HPI Comments Details: Patient is a pleasant 73 years old female presents back to the office today for follow up chronic pain and chronic opioid therapy management and was previously seen by Nasreen MCMULLEN. Patient is supposed to have #2 pills, in her possession has #2 pills. This demonstrates a responsible attitude in regards to the medication regimen. Patient continues to report reasonable pain relief onher regimen of oxycodone 5 mg BID prn without side effects. Patinet denies any constipation, nausea, sedation, dizziness, rash, dyspnea, or urinary retention. Pain is reported today as 05/26 and last dose of pain medication was taken yesterday at 5:30pm. Denies any recent cough, cold, infection, fever or any significant changes in medical history since last office visit. She was seen by [facility] on 05/21/24 and elected to hold off on spinal fusion at this time. Denies any changes to medications, medical history or recent hospitalizations. [facility] Medical History Osteoarthritis History of osteopenia Obesity (BMI 30.0-34.9) Prolapse of anterior vaginal wall Essential hypertension Dyslipidemia Irritable bowel syndrome Chronic pain syndrome Bilateral primary osteoarthritis of knee Spondylosis without myelopathy or radiculopathy, lumbar region Surgical History History of tonsillectomy History of hysterectomy History of carpal tunnel surgery History of cholecystectomy History of laparoscopic appendectomy History of lumbar laminectomy History of reduction mammoplasty H/O abdominoplasty Hx of bariatric surgery Family History Mother Diabetes mellitus Essential hypertension Cardiovascular disease Daughter Wernicke-Korsakoff syndrome (alcoholic) Social History Household Members: None Household Members Other:: 0 Housing: House Do you presently have visiting nurse or other home services: No Alcohol intake: never Patient Tobacco Use Status: Former Tobacco user e-Cigarette/Vaping Use: Never Used Advance Directives Date on File: 12/22/21 service: No Current occupational status: retired Cognitive needs: No Hearing needs: No Vision needs: No Review of Systems Const All systems reviewed & are unremarkable except as noted in HPI and below Physical Exam Vital Signs: Last Vital Signs Pulse 96 05/22/24 08:29 BP 92/56 L 05/22/24 08:29 Pulse Ox 98 05/22/24 08:29 Oxygen Delivery Method Room Air 05/22/24 08:29 BMI result Body Mass Index 27.4 General: Appears afebrile. Alert and oriented. Mood and affect appropriate. Follows and participates in conversation appropriately. Respiratory effort is unlabored. No cough. Able to transition from sit to stand unassisted. Ambulates with bilaterally normal heel strike and toe off. Psych Appearance: grossly normal and well kempt Mental Status: mental status grossly normal Speech and movement: Normal speech and movement present and Clear speech present Affect: normal affect Attitude: cooperative Thought process: Normal thought process present Thought content: Normal thought content present, suicidality (none), no hallucinations and No Depressive thoughts present Insight: Good insight present (Psych) Judgement: Good judgement present (Psych) Results Reviewed Results Reviewed: 02/29/24 EMG IMPRESSION: 1. This is a normal study. 2. There is no electrodiagnostic evidence for peroneal neuropathy, tibial neuropathy, lumbosacral plexopathy, lumbar radiculopathy, or peripheral neuropathy. 11/2023 x-ray lumbar spine Independently reviewed: Worsening degenerative disc disease. Official radiologist's reading pending. CT/CT abdomen pelvis w IV 10/26/22 OSSEOUS STRUCTURES: No acute or suspicious osseous abnormality. Degenerative changes throughout the spine. MR LUMBAR SPINE WITHOUT CONTRAST 02/12/24 CLINICAL INFORMATION: Lumbar spondylosis COMPARISON: None available. TECHNIQUE: MRI of the lumbar spine was obtained using routine sequences without contrast. FINDINGS: There are 5 nonrib-bearing lumbar-type vertebrae. Mild dextrocurvature of the lumbar spine. Preservation of the normal lumbar lordosis. Grade 1 anterolisthesis at L3-4 and mild retrolisthesis at L1-2 and L4-5. Diffusely heterogeneous bone marrow signal is degenerative. Subacute endplate changes at L4-5. The vertebral body heights are preserved. Multilevel disc desiccation with severe disc height loss at L4-5. Multilevel endplate osteophytosis. The visualized spinal cord is normal in caliber. No abnormal cord signal. The conus medullaris terminates at L1-2. T12-L1: No significant spinal canal or neural foraminal narrowing. L1-2: Shallow disc bulge and bilateral facet arthrosis. No significant spinal canal or neural foraminal narrowing. L2-3: Shallow disc bulge and bilateral facet arthrosis. No significant spinal canal or neural foraminal narrowing. L3-4: Shallow disc bulge and bilateral facet arthrosis. No significant spinal canal or neural foraminal narrowing. L4-5: Diffuse disc bulge and bilateral facet arthrosis. Moderate left neural neural foraminal narrowing with mass effect on the left exiting L4 nerve roots. The disc also abuts the exiting nerve roots on the right. L5-S1: Diffuse disc bulge with superimposed annular fissure. Bilateral facet arthrosis. Mild to moderate right neural foraminal narrowing with mass effect on the right exiting L5 nerve roots. The paravertebral soft tissues are unremarkable. IMPRESSION: Multilevel lumbar spondylosis as described above without significant spinal canal narrowing. Neural foraminal narrowing is worst and moderate on the left at L4-5 with mass effect on the left exiting L4 nerve roots. There is also mild to moderate right neural foraminal narrowing at L5-S1 with mass effect on the right exiting L5 nerve roots. Assessment & Plan Assessment & Plan (1) Peripheral neuropathy: Code(s): G62.9 - Polyneuropathy, unspecified Category: Medical (2) Spondylosis without myelopathy or radiculopathy, lumbar region: Code(s): M47.816 - Spondylosis without myelopathy or radiculopathy, lumbar region Category: Medical (3) Bilateral primary osteoarthritis of knee: Code(s): M17.0 - Bilateral primary osteoarthritis of knee Category: Medical (4) Chronic pain syndrome: Code(s): G89.4 - Chronic pain syndrome Category: Medical (5) Disc degeneration, lumbar: Code(s): M51.36 - Other intervertebral disc degeneration, lumbar region Category: Medical (6) Postlaminectomy syndrome of lumbar region: Code(s): M96.1 - Postlaminectomy syndrome, not elsewhere classified Category: Medical (7) Opioid contract exists: Code(s): Z79.891 - penitentiary (current) use of opiate analgesic Category: Medical Plan Masspat was reviewed and without concerns. No obvious signs of diversion, abuse or misuse of the opioid medications. Prescription for oxycodone 5 mg p.o. twice daily as needed sent to the pharmacy today. Narcan sent today. Patient also takes amitriptyline to 25 mg p.o. daily at bedtime. All questions and concerns have been answered, patient agrees with the plan. Follow up in 1 month with Nasreen MCMULLEN, sooner if needed. Medications: New naloxone 4 mg/actuation (Narcan) spray 1 dose into ONE nostril; alternate nostrils w each dose until help arrives 4 mg intranasal Q2M PRN 2 ea 0RF opioid overdose Z79.891 - penitentiary (current) use of opiate analgesic Refilled oxycodone Partial Fill upon patient request. 5 mg PO BID 30 days PRN 60 tabs 0RF pain M17.0 - Bilateral primary osteoarthritis of knee, M96.1 - Postlaminectomy syndrome, not elsewhere classified, Z79.891 - remote computer terminal operator (current) use of opiate analgesic Coding Level of Care Code Est Pt Level 4 (85011) Complex EM visit Add On G2211 Diagnoses Peripheral neuropathy G62.9 Spondylosis without myelopathy or radiculopathy, lumbar region M47.816 Bilateral primary osteoarthritis of knee M17.0 Chronic pain syndrome G89.4 Disc degeneration, lumbar M51.36 Postlaminectomy syndrome of lumbar region M96.1 Opioid contract exists Z79.891
[2024-05-22 08:29] VITALS: BP 92/56; PULSE 96; O2SAT 98; BMI 27.4
== END 2024-05-22 08:45 | disposition home or self-care (01) ==
PROVIDERS: PCP Internal Medicine; Visit Provider Nurse Practitioner Family
DX: G62.9 Polyneuropathy, unspecified (principal); M47.816 Spondylosis without myelopathy or radiculopathy, lumbar region; M17.0 Bilateral primary osteoarthritis of knee; G89.4 Chronic pain syndrome; M51.369 Other intervertebral disc degeneration, lumbar region without mention of lumbar back pain or lower extremity pain; M96.1 Postlaminectomy syndrome, not elsewhere classified; Z79.891 Long term (current) use of opiate analgesic
CPT/HCPCS: 99214; G2211

== ENCOUNTER → 2024-05-22 08:11 | Outpatient (BNVA) | payer MEDICARE, OTHER, SELFPAY | PROVIDERS: PCP Internal Medicine; Visit Provider Nurse Practitioner Family | DX: Z51.81 Encounter for therapeutic drug level monitoring (principal); M47.816 Spondylosis without myelopathy or radiculopathy, lumbar region; M17.0 Bilateral primary osteoarthritis of knee; M51.360 Other intervertebral disc degeneration, lumbar region with discogenic back pain only; M96.1 Postlaminectomy syndrome, not elsewhere classified; G62.9 Polyneuropathy, unspecified; Z79.891 Long term (current) use of opiate analgesic | CPT/HCPCS: 99212 ==

== ENCOUNTER 2024-06-20 08:06 | Outpatient (AMB) | payer MEDICARE, OTHER, SELFPAY ==
--- OUTSIDE RECORDS SUMMARY | 2024-06-20 08:19 | XMS_ITS | Patient Health Record ---
Author Organization [facility] Address [address] [place] [address] Care Team Providers Care Mechanical Adjuster Name Role Phone Alma IVORY, Debbi Primary Care Provider Rashid Narayan Unavailable [phone] Allergies Allergen (clinical drug ingredient) Drug/Non Drug Allergy documented on EMR Reaction Allergy Type Onset Date Status Non-steroidal anti-inflammatory agent (FN) NSAIDS (uncoded) GI upset Allergy Active Reason For Referral No Information [...] as needed Orally Once a day Active Problems Problem Type SNOMED Code ICD Code Onset Dates Problem Status W/U Status Risk Notes Problem Irritable bowel syndrome (20253427) Irritable bowel syndrome (564.1) Active confirmed Problem Constipation (51348092) Constipation (564.00) Active confirmed Problem Screening for malignant neoplasm of colon (224750623) Screening for colorectal cancer (V76.51) Active confirmed Problem 024210227 Abdominal bloating (R14.0) Active confirmed Problem 26218435 Abdominal gas pain (R14.1) Active confirmed Plan Of Treatment Pending Test Test Name Order Date CELIAC PANEL #10 09/17/2017 Future Test Test Name Order Date COLONOSCOPY 11/04/2013 Next Appt Details Provider Name:Rashid Wilson , 09/11/2024 10:40:00 AM, [address], [address], [place], [address], Insurance Providers Payer Name Payer Address Payer Phone Subscriber Number Group Number Insured Name Patient Relationship to Insured Coverage Start Date Coverage End Date MEDICARE OF [place] [address] [place] [id number] TURNER ESPINOZA Self - patient is the insured [employer] ([employer]) [address] [place] [address] [id number] TURNER ESPINOZA Self - patient is the insured Medical (General) History Medical History History ICD Code 06/07/2004 Colonoscopy w/small internal hemorrhoids Uses Hctz for edema due to the Lyrica IBS--uses Hyoscyamine prn wi th relief--constipation, but stable on her bowel regimen Hyperlipidemia Shingles Denies CO,DM,CVA,Lung disease,renal dise ase Back pain with disc disease- -use Vicodin QID-has a neuropain stimulator in place Surgical History Surgery Date(Month/Year) tonsillectomy 1971 hysterectomy 2009 cystocele repair 2008 bunionectomy 2008 laminectomy 2003 cholecystectomy 1988 shoulder surgery-right right knee arthroscopy 2002 appendectomy 09/01/2013 lap band insertion--Dr. Tierney-lost 30 # Marsupialization for Bartholin's glands cysts and infections
--- OUTSIDE RECORDS SUMMARY | 2024-06-20 08:19 | XMS_ITS ---
Author Organization [facility] Address [address] [place] [address] Care Team Providers Care Jail Officer Name Role Phone Alam IVORY, Debbi Garcia Primary Care Provider Un available Ratna Chua Unavailable [phone] Allergies Allergen (clinical drug ingredient) Drug/Non Drug [...] Date Performed Result Body Sit e , G7138-VWDVG/INJECT, JOINT/BURSA 03/20/2024 N/A Encounters Encounter Location Date Provider Diagnosis [facility] [address] [address] 03/20/2024 Ratna Chua Sinus tarsitis of left [...] Pending Test Test Name Order Date , V6337-DGBUJ/INJECT, JOINT/BURSA 0 03/20/2024 Next Appt Details Follow Up: 3 Months, Reason: Provider Name:Ratna boyd, 07/24/2024 09:00:00 AM, [address] [place] [address], [address], Procedure Notes * Category Sub-Category Detail Notes [...] Leandra ESPINOZA ADOB: [birth year] (73 yo F)Acc No.[id number]:03/20/2024 Progress Note Patient:?Leandra ESPINOZA Provider:?Ratna Chua DPM :1950???Age:73 Y???Sex:Female D ate:03/20/2024 Address:[address] [place], [place] [id number] Pcp:Wilberto Cook Subjective: * Chief Complaints: * [...] of 10.? * Procedure Codes:? DRAIN /INJECT, JOINT/[id number] INJ BETAMETHSN ACTAT&SOD PHOSPH-3MG * Preventive Medicine:? [...] DPM Date:?0 03/20/2024 Generated for Yissel patel/Luca/Han on:?06/20/2024 08:19 AM EDT History and Physical Notes * HPI (History [...]
--- OUTSIDE RECORDS SUMMARY | 2024-06-20 08:20 | XMS_ITS | Data Portability ---
Author Organization [facility] Address [address] [place] [address] Care Team Providers Care Digital Media Specialist Name Role Phone LAMAlexisJEREMY Primary Care Provider [phone] Assessment No assessment recorded. Plan of Treatment Reminders Order Date Submit Date Provider Last Modified By Organization Details Last Modified Time Details Appointments RECHECK 15 2024 08:30A M Adan Vang PA-C Not available Not available Not available Lab None recorded . Referral None recorded . Procedures None recorded . Surgeries None recorded . Imaging None recorded . Medication Orders None recorded . Patient TargetsNo targets recorded. Patient InstructionsNo instructions recorded. Reason for Referral None Reported. Problems Name Problem SNOMED Code Status Onset Date Resolution Date Notes Provider Name and Address Organization Details Recorded Time No complaint s 183719443 Active Status: 'I'; Not Available [facility] 4 09:25:07 Pain of left shoulder joint 148689183495 23331 Active 2023 Dede Felix PA-C [address], [place], [address] , [facility] 4 12:33:30 Idiopathi c osteoarth ritis 920670822 Active 2019 Problem Code: M17.0; Problem Code Type: ICD-10; Status: 'A'; Not Available [facility] 4 11:57:27 Bilateral shoulder osteoarth ritis 423787594101 108 Active 2023 Dede Felix PA-C [address], [place], [address] , [facility] 4 09:08:04 Osteoarth ritis of joint of left shoulder region 697590023836 108 Active 2023 Dede Felix PA-C [address], [place], [address] , [facility] 4 16:55:44 Problem Notes None recorded. Procedures Surgical History Date Name Laterality Status Provider Name and Address Organization Details Recorded Time 5 Sports Shoulder completed Dede Park PA-C [address], [place], [address], [facility] 03/20/2024 12:33:07 4 Sports Shoulder completed Dede Felix PA-C [address], [place], [address], [facility] 12/03/2023 12:32:04 4 Sports Shoulder completed Dede Felix PA-C [address], [place], [address], [facility] 08/30/2023 16:55:10 4 Shoulder Kenalog 2cc Injection, Bilateral completed Dede Felix PA-C [address], [place], [address], [facility] 06/01/2023 09:07:52 Imaging Results None recorded. Procedure Notes None recorded. Medical Equipment None Reported. Allergies Allergen ID Allergen Name Allergen Category Reaction Reaction Severity Criticality Documentation Date Start Date Code Code System Note Provider Name and Address Organization Details Recorded Time 16959 Non-stero idal anti-infl ammatory agent (product) medicatio n Not available Not available Not available 05/21/20232012 49766 005 SNOMED Not Available [facility] 4 12:44:51 Medications Name Sig Start Date [...] Updated DateTime 06/01/2023 157.48 cm 32.6 kg/m2 75464.44 g Sri Alvaro [facility] 06/01/2023 08:55:44 Date Recorded Body height Body mass index (BMI) Body weight Provider Name and Address Organization Details Last Updated DateTime 08/30/2023 157.48 cm 32.6 kg/m2 84961.44 g CHRISTY VONDA Angela [facility] 08/30/2023 08:53:29 Date Recorded Body height Body mass index (BMI) Body weight Provider Name and Address Organization Details Last Updated DateTime 12/03/2023 157.48 cm 32.6 kg/m2 09339.44 g CHRISTY LILIANAJOSE ANTONIO Angela [facility] 12/03/2023 13:39:54 Date Recorded Body height Body mass index (BMI) Body weight Provider Name and Address Organization Details Last Updated DateTime 03/21/2024 157.48 cm 32.6 kg/m2 25963.44 g KAYLMAISHA L'HEUREUX [facility] 03/21/2024 08:26:33 Social History Question Answer Notes LastModified by Organizat ion Details LastModified Time Tobacco Smoking Status Former Smoker CHRISTY shine [facility] 08/30/2023 08:54:11 What Is Your Level Of [...] SNOMED-CT Code Diagnosis ICD10 Code Diagnosis Note [id number] Dede Felix PA-C [place] [address] [place] [address] 06/01/2023 08:34:49 06/01/2023 09:16:45 Bilateral shoulder osteoarthritis 3848779210 96601 M19.011 M19.537 [id number] Dede Felix PA-C [address] [address] [place] [address] 08/30/2023 08:36:22 09/19/2023 13:31:49 Osteoarthritis of joint of left shoulder region 8162153344 47367 M19.813 [id number] Dede Felix PA-C [address] [place] [address] 12/03/2023 13:34:06 12/13/2023 09:36:44 Pain of left shoulder joint 9873011546 8092414 M25.575 [id number] Dede Park PA-C [facility] [address] [address] [place] [address] 03/21/2024 08:16:46 04/07/2024 10:04:41 Pain of left shoulder joint 7063458352 7754617 M25.512 Health Concerns Section Related Observation LastModified by Organization Detai ls LastModified Time None Recorded Concern Status LastModified by Organization Details LastModified Time None Recorded Advance Directives Directive None Recorded Payers Encounter Date Sequence Insurance Name Policy Number Policy Van Covered Member ID Van Member ID Guarantor Name 06/01/2023 1 [place] [employer] Leandra Galvez [id number] Leandra Galvez 06/01/2023 2 [facility] SENIOR SERVICES PLAN F (MEDICARE SUPPLEMENT) [id number] Leandra Galvez [id number] Leandra Galvez 08/30/2023 1 [place]: [employer] Leandra Galvez [id number] Leandra Galvez 08/30/2023 2 [employer] - SENIOR SERVICES PLAN F (MEDICARE SUPPLEMENT) [id number] Leandra Galvez [id number] Leandra Galvez 12/03/2023 1 [place] [facility] Leandra Galvez [id number] Leandra Galvez 12/03/2023 2 [employer] - SENIOR SERVICES PLAN F (MEDICARE SUPPLEMENT) [id number] Leandra Galvez [id number] Leandra Galvez 03/21/2024 1 [place] [facility] Leandra Galvez [id number] Leandra Galvez 03/21/2024 2 [employer] - SENIOR SERVICES PLAN F (MEDICARE SUPPLEMENT) [id number] Leandra Galvez [id number] Leandra Galvez Notes Date Note Type Note [...] x-rays of the right shoulder reviewed at [facility] today. AP view demonstrates mild glenohumeral joint [...] include infection and tendon rupture. Speech recognition strategic insights lead software was used to create portions of this document. An attempt at proofreading has been made to minimize errors. Please call for corrections. Dede Felix PA-C [address] [facility] [address] [facility], [place], [address], [facility] 06/01/2023 13:22:14 08/30/2023 text/html [...] 4 view x-rays right shoulder reviewed at [facility] today. AP view demonstrates mild glenohumeral joint [...] and agrees with the plan. Speech recognition strategic insights lead software was used to create portions of this document. An attempt at proofreading has been made to minimize errors. Please call for corrections. Dede Felix PA-C [address] [facility] [address], [place], [address], [facility] 08/30/2023 16:56:13 12/03/2023 text/html I am [...] X-RAYS:Previous 4v x-rays right shoulder reviewed at [facility] today. AP view demonstrates mild glenohumeral joint [...] and agrees with the plan. Speech recognition strategic insights lead software was used to create portions of this document. An attempt at proofreading has been made to minimize errors. Please call for corrections. Dede Felix PA-C [address] [facility] [address] [facility], [place], [address], [facility] 12/03/2023 13:56:44 03/21/2024 text/html I am seeing [...] and agrees with the plan. Speech recognition strategic insights lead software was used to create portions of this document. An attempt at proofreading has been made to minimize errors. Please call for corrections. Dede aPrk PA-C [address] [facility] [address], [place], [address], [facility] 03/21/2024 09:13:42 OBGyn Episode No OBEpisode recorded.
--- OUTSIDE RECORDS SUMMARY | 2024-06-20 08:20 | XMS_ITS | Patient Health Record ---
Author Organization [facility] Address [address] [place] [address] Care Team Providers Care Operations Processor Name Role Phone Alma IVORY, Debbi Garcia Primary Care Provider Un available Ratna Chua Unavailable [phone] Emanuel Crawford Unavailable [phone] Allergies Allergen (clinical drug ingredient) Drug/Non Drug [...] primary osteoarthritis of the ankle and/or foot (497113318) Primary osteoarthriti s, left ankle and foot (M19.072) Active confirmed Problem Acquired hallux valgus (83661595) Hallux valgus (acquired), left foot (M20.12) Active confirmed Problem Acquired hammer toe of left foot (0931843912522774) Other hammer toe(s) (acquired), left foot (M20.42) Active confirmed Problem 338452237 Lymphedema (I89.0) Active confirmed Problem [id number] 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 Vital Signs Blood pressure diastolic 75 mm Hg 03/20/2024 Height 5ft2in in 03/20/2024 Blood pressure systolic 126 mm Hg 03/20/2024 Weight 150 lbs 03/20/2024 BMI 27.43 kg/m2 03/20/2024 Procedures Procedure Date Ordered Date Performed Result Body Sit e , I4770-TKSZY/INJECT, JOINT/BURSA 03/20/2024 N/A Encounters Encounter Location Date Provider Diagnosis [facility] [address] [place] [address] 08/22/2023 Emanuel Crawford Pain in left foot M79.672 ; Primary osteoarthritis, left ankle and foot M19.072 ; Metatarsalgia, left foot M77.42 ; 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 ; Other hammer toe(s) (acquired), left foot M20.42 ; Peroneal tendinitis of left lower extremity M76.72 and Hallux valgus (acquired), left foot M20.[address] [address] 11/29/2023 Emanuel Crawford Pain in left foot M79.672 ; Primary osteoarthritis, left ankle and foot M19.072 ; Metatarsalgia, left foot M77.42 ; 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 ; Other hammer toe(s) (acquired), left foot M20.42 ; Peroneal tendinitis of left lower extremity M76.72 ; Hallux valgus (acquired), left foot M20.12 and Lymphedema I89.[address] [address] 03/20/2024 Ratna Chua Sinus tarsitis of left [...] J0702- INJECT or DRAIN, JOINT/BUR SA 03/08/2023, D9221-RWTMQ/INJECT, JOINT/BURSA 0 03/20/2024, D9273-HJVDT/INJECT, JOINT/BURSA 0 10/16/2018 X ray : Ankle, right 3V 09/05/2011 Next Appt Details Provider Name:Ratna Lopez deb, 07/24/2024 09:00:00 AM, [address] [place], [address], Insurance Providers Payer Name Payer Address Payer Phone Subscriber Number Group Number Insured Name Patient Relationship to Insured Coverage Start Date Coverage End Date Medicare [facility] [address] [facility] [place] [address] [id number] Leandra Galvez Self - patient is the insured [facility] [address] [place] [address] [id number] Leandra Galvez Self - patient is [...] abdominoplasty 11/11 Pain Stimulator removed- 3 days [facility] 08/28/2018
--- OUTSIDE RECORDS SUMMARY | 2024-06-20 08:20 | XMS_ITS ---
Author Organization [facility] Address [address] [place] [address] Care Team Providers Care Cop Name Role Phone Alma IVORY, Debbi Garcia Primary Care Provider Un available Ratna Chua Unavailable [phone] Encounters Encounter Location Date Provider Diagnosis [facility] [address] [place] [address] 03/20/2024 Ratna Chua Plan Of Treatment Next Appt Details Provider Name:Ratna boyd, 07/24/2024 09:00:00 AM, [address] [place], [address], Progress Notes * Leandra ESPINOZA ADOB: [birth year] (73 yo F)Acc No.[id number]:03/20/2024 Progress Note Patient:?Leandra ESPINOZA Provider:?Ratna Chua DPM :1950???Age:73 Y???Sex:Female D ate:03/20/2024 Address:[address] [place] [address] Pcp:Wilberto Cook Subjective: * Chief Complaints: * [...]
--- OUTSIDE RECORDS SUMMARY | 2024-06-20 08:20 | XMS_ITS | Clinical Summary ---
Author Organization [facility] Address [address] [place] [address] Care Team Providers Care Change Management Specialist Name Role Phone Unavailable Primary Care Provider [...] 2023 Influenza Vaccine (#1) 2023 RSV Immunization Adult Patie nts (1 - 1-dose 75+ series) 10/24/2027 HIB [...]
--- OUTSIDE RECORDS SUMMARY | 2024-06-20 08:21 | XMS_ITS ---
Author Organization [facility] Address [address] [place] [address] Care Team Providers Care Candy Supervisor Name Role Phone Alma IVORY, Debbi Garcia Primary Care Provider Un available Ratna Chua Unavailable [phone] Emanuel Crawford Unavailable [phone] Allergies Allergen (clinical drug ingredient) Drug/Non Drug [...] Problem Status W/U Status Risk Notes Problem [id number] Lymphedema (I89.0) Active confirmed Vital Signs Height 5ft 2in in 11/29/2023 Weight 177 lbs 11/29/2023 BMI 32.37 kg/m2 11/29/2023 Blood pressure systolic 124 mm Hg 11/29/19 24 Blood pressure diastolic 68 mm Hg 024 Encounters Encounter Location Date Provider Diagnosis [facility] [address] [place] [address] 11/29/2023 Emanuel Crawford Pain in left foot [...] Provider Name:Ratna Bianchicolin boyd, 07/24/2024 09:00:00 AM, [address] [place] [address], [phone], Procedure Notes * Category Sub-Category Detail [...] at peroneal insertion Med: Joint,Bursa (Sinus Tarsi,AJ) 59411, J0702 Injection # Med/Ankle joint bursa/capsule 1cc [...] Leandra ESPINOZA ADOB: [birth year] (73 yo F)Acc No.[id number]:11/29/2023 Progress Note Patient:?Leandra Espinoza Provider:?Emanuel Crawford DPM :1950???Age:73 Y???Sex:Female D ate:11/29/2023 [facility] Pcp:Wilberto Cook Subjective: * Chief Complaints: * [...] - I89.0? Plan: * Treatment: * Procedures:?Injection:?Tendon Origin/insertion?25228, J0702 Injection - Tendon Origin/Insertion w/ mixture [...] LEFT ankle --AL aspect .? * Procedure Codes:?78180 INJEC T TENDON ORIGIN/INSERT, Modifiers: XS J0702 [...] DPM Date:? 024 Generated for Yissel patel/Luca/Faheemitting on:?06/20/2024 08:20 AM EDT History and Physical Notes * [...] B/L Orthopedic GAIT ABNORMALITY: pronated, abducted, B/L FOOTWEAR EVALUATION: OT were inspected a nd noted to be in good condition MUSCLE [...]
--- NOTE | 2024-06-20 08:27 | MHC.OFFVIS ---
Vital Signs 06/20/24 08:28 Height 5 ft 2 in Weight 150 lb BMI 27.4 BP 101/71 Blood Pressure Location Lt brachial Position Sitting Respiration 16 Pulse 99 Pulse Source Pulse Oximeter Pulse Oximetry (%) 100 Oxygen Delivery Method Room Air Intake Visit Reasons: PILL COUNT Intake Note: Pt states she last took oxy 06/19/24 @ 5:30pm Manager Book Required: No Allergies buprenorphine [Belbuca] Allergy (Unknown, Verified 06/20/24 08:29) stomach upset NSAIDS (Non-Steroidal Anti-Inflamma Allergy (Unknown, Verified 06/20/24 08:29) Stomach Upset Medication List - Last Reconciled 06/20/24 by Maren Aviles LPN amitriptyline 25 mg PO BEDTIME 90 days atorvastatin 20 mg PO DAILY bisacodyl (Dulcolax (bisacodyl)) 10 mg PO DAILY cholecalciferol (vitamin D3) (Vitamin D3) 50 mcg PO DAILY docusate sodium (Colace) 200 mg PO DAILY estradiol (Estrace) 2 mg PO DAILY hydrochlorothiazide 12.5 mg PO DAILY hyoscyamine sulfate 0.125 mg PO DAILY PRN magnesium 250 mg PO DAILY naloxone 4 mg/actuation (Narcan) 4 mg intranasal Q2M PRN omeprazole magnesium 20 mg PO DAILY@0630 PRN oxycodone 5 mg PO BID PRN 30 days trazodone 100 mg PO BEDTIME HPI Comments Details: Leandra presents back to the office today for follow up chronic pain and chronic opioid therapy management. Patient is prescribed oxycodone 5 mg tablets, take 2 tablets daily as needed. Patient arrived today with the expectation of having 2 pills, she presented 2 pills which were counted in the presence of two staff members and returned to the patient in the original prescription bottle. This demonstrates responsible attitude toward patient's opioid medications. Pain is reported today as 3/10 and last dose of pain medication was taken yesterday at 5:30pm. She denies side effects including somnolence, constipation, itching, dyspnea, rash, dizziness, urinary retention or weakness. Prior: She has PHQ score is equal to 1, Her opioid addiction risk score is equal to 2 Total score is equal to 3 she is low risk for opioid addiction. [facility] Medical History Osteoarthritis History of osteopenia Obesity (BMI 30.0-34.9) Prolapse of anterior vaginal wall Essential hypertension Dyslipidemia Irritable bowel syndrome Chronic pain syndrome Bilateral primary osteoarthritis of knee Spondylosis without myelopathy or radiculopathy, lumbar region Surgical History History of tonsillectomy History of hysterectomy History of carpal tunnel surgery History of cholecystectomy History of laparoscopic appendectomy History of lumbar laminectomy History of reduction mammoplasty H/O abdominoplasty Hx of bariatric surgery Family History Mother Diabetes mellitus Essential hypertension Cardiovascular disease Daughter Wernicke-Korsakoff syndrome (alcoholic) Social History Household Members: None Household Members Other:: 0 Housing: House Do you presently have visiting nurse or other home services: No Alcohol intake: never Patient Tobacco Use Status: Former Tobacco user e-Cigarette/Vaping Use: Never Used Advance Directives Date on File: 12/22/21 service: No Current occupational status: retired Cognitive needs: No Hearing needs: No Vision needs: No Review of Systems Const All systems reviewed & are unremarkable except as noted in HPI and below Physical Exam Vital Signs: Last Vital Signs Pulse 99 06/20/24 08:28 Resp 16 06/20/24 08:28 BP 101/71 06/20/24 08:28 Pulse Ox 100 06/20/24 08:28 Oxygen Delivery Method Room Air 06/20/24 08:28 BMI result Body Mass Index 27.4 General: awake, alert, oriented. Answers questions appropriately. Fully engaged in examination. Skin: warm, dry, intact without visible rashes or lesions. HEENT: Normocephalic. Cardiac: External chest normal in appearance. Respiratory: Cough without audible wheezing or stridor. Abdomen: without gross distension. MS: No obvious swelling or deformities. Able to transition from sit to stand unassisted. Ambulates with bilaterally normal heel strike and toe off Neurological: Oriented to person, place, time and situation. Thought process intact. Psychiatric: Appropriate mood and affect. Good judgment and insight. Results Reviewed Results Reviewed: 02/29/24 EMG IMPRESSION: 1. This is a normal study. 2. There is no electrodiagnostic evidence for peroneal neuropathy, tibial neuropathy, lumbosacral plexopathy, lumbar radiculopathy, or peripheral neuropathy. 11/2023 x-ray lumbar spine Independently reviewed: Worsening degenerative disc disease. Official radiologist's reading pending. CT/CT abdomen pelvis w IV 10/26/22 OSSEOUS STRUCTURES: No acute or suspicious osseous abnormality. Degenerative changes throughout the spine. MR LUMBAR SPINE WITHOUT CONTRAST 02/12/24 CLINICAL INFORMATION: Lumbar spondylosis COMPARISON: None available. TECHNIQUE: MRI of the lumbar spine was obtained using routine sequences without contrast. FINDINGS: There are 5 nonrib-bearing lumbar-type vertebrae. Mild dextrocurvature of the lumbar spine. Preservation of the normal lumbar lordosis. Grade 1 anterolisthesis at L3-4 and mild retrolisthesis at L1-2 and L4-5. Diffusely heterogeneous bone marrow signal is degenerative. Subacute endplate changes at L4-5. The vertebral body heights are preserved. Multilevel disc desiccation with severe disc height loss at L4-5. Multilevel endplate osteophytosis. The visualized spinal cord is normal in caliber. No abnormal cord signal. The conus medullaris terminates at L1-2. T12-L1: No significant spinal canal or neural foraminal narrowing. L1-2: Shallow disc bulge and bilateral facet arthrosis. No significant spinal canal or neural foraminal narrowing. L2-3: Shallow disc bulge and bilateral facet arthrosis. No significant spinal canal or neural foraminal narrowing. L3-4: Shallow disc bulge and bilateral facet arthrosis. No significant spinal canal or neural foraminal narrowing. L4-5: Diffuse disc bulge and bilateral facet arthrosis. Moderate left neural neural foraminal narrowing with mass effect on the left exiting L4 nerve roots. The disc also abuts the exiting nerve roots on the right. L5-S1: Diffuse disc bulge with superimposed annular fissure. Bilateral facet arthrosis. Mild to moderate right neural foraminal narrowing with mass effect on the right exiting L5 nerve roots. The paravertebral soft tissues are unremarkable. IMPRESSION: Multilevel lumbar spondylosis as described above without significant spinal canal narrowing. Neural foraminal narrowing is worst and moderate on the left at L4-5 with mass effect on the left exiting L4 nerve roots. There is also mild to moderate right neural foraminal narrowing at L5-S1 with mass effect on the right exiting L5 nerve roots. Assessment & Plan Assessment & Plan (1) Peripheral neuropathy: Code(s): G62.9 - Polyneuropathy, unspecified Category: Medical (2) Spondylosis without myelopathy or radiculopathy, lumbar region: Code(s): M47.816 - Spondylosis without myelopathy or radiculopathy, lumbar region Category: Medical (3) Bilateral primary osteoarthritis of knee: Code(s): M17.0 - Bilateral primary osteoarthritis of knee Category: Medical (4) Chronic pain syndrome: Code(s): G89.4 - Chronic pain syndrome Category: Medical (5) Disc degeneration, lumbar: Code(s): M51.36 - Other intervertebral disc degeneration, lumbar region Category: Medical (6) Trochanteric bursitis, left hip: Code(s): M70.62 - Trochanteric bursitis, left hip Category: Medical Plan Masspat was reviewed and without concerns. No obvious signs of diversion, abuse or misuse of the opioid medications. Prescription for oxycodone 5 mg p.o. twice daily as needed sent to the pharmacy. C/W amitriptyline to 25 mg p.o. daily at bedtime All questions and concerns have been answered, patient agrees with the plan. Follow up in 1 month, sooner if needed. Medications: Refilled oxycodone Partial Fill upon patient request. 5 mg PO BID PRN 60 tabs 0RF pain 30 days M17.0 - Bilateral primary osteoarthritis of knee, M96.1 - Postlaminectomy syndrome, not elsewhere classified, Z79.891 - correction (current) use of opiate analgesic Coding Level of Care Code Est Pt Level 4 (61891) Complex EM visit Add On G2211 Diagnoses Peripheral neuropathy G62.9 Spondylosis without myelopathy or radiculopathy, lumbar region M47.816 Bilateral primary osteoarthritis of knee M17.0 Chronic pain syndrome G89.4 Disc degeneration, lumbar M51.36 Trochanteric bursitis, left hip M70.62
[2024-06-20 08:28] VITALS: BP 101/71; PULSE 99; RESP 16; O2SAT 100; BMI 27.4
== END 2024-06-20 08:53 | disposition home or self-care (01) ==
LOC: HO.PMC 08:07
PROVIDERS: PCP Internal Medicine; Visit Provider Registered Nurse Emergency
DX: G62.9 Polyneuropathy, unspecified (principal); M47.816 Spondylosis without myelopathy or radiculopathy, lumbar region; M17.0 Bilateral primary osteoarthritis of knee; G89.4 Chronic pain syndrome; M51.369 Other intervertebral disc degeneration, lumbar region without mention of lumbar back pain or lower extremity pain; M70.62 Trochanteric bursitis, left hip
CPT/HCPCS: 99214; G2211

== ENCOUNTER → 2024-06-20 08:06 | Outpatient (BNVA) | payer MEDICARE, OTHER, SELFPAY | PROVIDERS: PCP Internal Medicine; Visit Provider Registered Nurse Emergency | DX: Z51.81 Encounter for therapeutic drug level monitoring (principal); M47.816 Spondylosis without myelopathy or radiculopathy, lumbar region; M17.0 Bilateral primary osteoarthritis of knee; M51.360 Other intervertebral disc degeneration, lumbar region with discogenic back pain only; M70.62 Trochanteric bursitis, left hip; G62.9 Polyneuropathy, unspecified; G89.4 Chronic pain syndrome; Z79.891 Long term (current) use of opiate analgesic | CPT/HCPCS: 99212 ==

== ENCOUNTER 2024-07-18 08:09 | Outpatient (AMB) | payer MEDICARE, OTHER, SELFPAY ==
--- NOTE | 2024-07-18 08:14 | MHC.OFFVIS ---
Vital Signs 07/18/24 08:20 Height 5 ft 2 in Weight 140 lb BMI 25.6 BP 131/69 Blood Pressure Location Lt brachial Position Sitting Pulse 83 Pulse Source Pulse Oximeter Pulse Oximetry (%) 98 Oxygen Delivery Method Room Air Intake Visit Reasons: Pill count Intake Note: Leandra comes in today for a pill count to oxycodone, patient should have 4 tablets and presents with 4 tablets which she last took last night 07/17/24 at 5:30pm. Pain today [address] Expert Required: No Accompanied by: Self / Same As Patient Allergies buprenorphine [Belbuca] Allergy (Unknown, Verified 07/18/24 08:21) stomach upset NSAIDS (Non-Steroidal Anti-Inflamma Allergy (Unknown, Verified 07/18/24 08:21) Stomach Upset HPI Comments Details: Leandra presents back to the office today for follow up chronic pain and chronic opioid therapy management. Patient is prescribed oxycodone 5 mg tablets, take 2 tablets daily as needed. Patient arrived today with the expectation of having 4 pills, she presented 4 pills which were counted in the presence of two staff members and returned to the patient in the original prescription bottle. This demonstrates responsible attitude toward patient's opioid medications. Pain is reported today as 610 and last dose of pain medication was taken yesterday at 5:30pm. Denies side effects including somnolence, constipation, itching, dyspnea, rash, dizziness, urinary retention or weakness. Pain exacerbated by daily yard work, spending many hours daily mowing, weeding and pushing wheelbarrow. Pain improves some with use of her prescribed medications and rest. She has PHQ score is equal to 1, Her opioid addiction risk score is equal to 2 Total score is equal to 3 she is low risk for opioid addiction. [facility] Medical History Osteoarthritis History of osteopenia Obesity (BMI 30.0-34.9) Prolapse of anterior vaginal wall Essential hypertension Dyslipidemia Irritable bowel syndrome Chronic pain syndrome Bilateral primary osteoarthritis of knee Spondylosis without myelopathy or radiculopathy, lumbar region Surgical History History of tonsillectomy History of hysterectomy History of carpal tunnel surgery History of cholecystectomy History of laparoscopic appendectomy History of lumbar laminectomy History of reduction mammoplasty H/O abdominoplasty Hx of bariatric surgery Family History Mother Diabetes mellitus Essential hypertension Cardiovascular disease Daughter Wernicke-Korsakoff syndrome (alcoholic) Social History Household Members: None Household Members Other:: 0 Housing: House Do you presently have visiting nurse or other home services: No Alcohol intake: never Patient Tobacco Use Status: Former Tobacco user e-Cigarette/Vaping Use: Never Used Advance Directives Date on File: 12/22/21 service: No Current occupational status: retired Cognitive needs: No Hearing needs: No Vision needs: No Review of Systems Const All systems reviewed & are unremarkable except as noted in HPI and below Physical Exam Vital Signs: Last Vital Signs Pulse 83 07/18/24 08:20 BP 131/69 07/18/24 08:20 Pulse Ox 98 07/18/24 08:20 Oxygen Delivery Method Room Air 07/18/24 08:20 BMI result Body Mass Index 25.6 General: awake, alert, oriented. Answers questions appropriately. Fully engaged in examination. Skin: warm, dry, intact without visible rashes or lesions. HEENT: Normocephalic. Cardiac: External chest normal in appearance. Respiratory: Cough without audible wheezing or stridor. Abdomen: without gross distension. MS: No obvious swelling or deformities. Able to transition from sit to stand unassisted. Ambulates with antalgic gait Neurological: Oriented to person, place, time and situation. Thought process intact. Psychiatric: Appropriate mood and affect. Good judgment and insight. Results Reviewed Results Reviewed: 02/29/24 EMG IMPRESSION: 1. This is a normal study. 2. There is no electrodiagnostic evidence for peroneal neuropathy, tibial neuropathy, lumbosacral plexopathy, lumbar radiculopathy, or peripheral neuropathy. 11/2023 x-ray lumbar spine Independently reviewed: Worsening degenerative disc disease. Official radiologist's reading pending. CT/CT abdomen pelvis w IV 10/26/22 OSSEOUS STRUCTURES: No acute or suspicious osseous abnormality. Degenerative changes throughout the spine. MR LUMBAR SPINE WITHOUT CONTRAST 02/12/24 CLINICAL INFORMATION: Lumbar spondylosis COMPARISON: None available. TECHNIQUE: MRI of the lumbar spine was obtained using routine sequences without contrast. FINDINGS: There are 5 nonrib-bearing lumbar-type vertebrae. Mild dextrocurvature of the lumbar spine. Preservation of the normal lumbar lordosis. Grade 1 anterolisthesis at L3-4 and mild retrolisthesis at L1-2 and L4-5. Diffusely heterogeneous bone marrow signal is degenerative. Subacute endplate changes at L4-5. The vertebral body heights are preserved. Multilevel disc desiccation with severe disc height loss at L4-5. Multilevel endplate osteophytosis. The visualized spinal cord is normal in caliber. No abnormal cord signal. The conus medullaris terminates at L1-2. T12-L1: No significant spinal canal or neural foraminal narrowing. L1-2: Shallow disc bulge and bilateral facet arthrosis. No significant spinal canal or neural foraminal narrowing. L2-3: Shallow disc bulge and bilateral facet arthrosis. No significant spinal canal or neural foraminal narrowing. L3-4: Shallow disc bulge and bilateral facet arthrosis. No significant spinal canal or neural foraminal narrowing. L4-5: Diffuse disc bulge and bilateral facet arthrosis. Moderate left neural neural foraminal narrowing with mass effect on the left exiting L4 nerve roots. The disc also abuts the exiting nerve roots on the right. L5-S1: Diffuse disc bulge with superimposed annular fissure. Bilateral facet arthrosis. Mild to moderate right neural foraminal narrowing with mass effect on the right exiting L5 nerve roots. The paravertebral soft tissues are unremarkable. IMPRESSION: Multilevel lumbar spondylosis as described above without significant spinal canal narrowing. Neural foraminal narrowing is worst and moderate on the left at L4-5 with mass effect on the left exiting L4 nerve roots. There is also mild to moderate right neural foraminal narrowing at L5-S1 with mass effect on the right exiting L5 nerve roots. Assessment & Plan Assessment & Plan (1) Peripheral neuropathy: Code(s): G62.9 - Polyneuropathy, unspecified Category: Medical (2) Spondylosis without myelopathy or radiculopathy, lumbar region: Code(s): M47.816 - Spondylosis without myelopathy or radiculopathy, lumbar region Category: Medical (3) Bilateral primary osteoarthritis of knee: Code(s): M17.0 - Bilateral primary osteoarthritis of knee Category: Medical (4) Chronic pain syndrome: Code(s): G89.4 - Chronic pain syndrome Category: Medical (5) Disc degeneration, lumbar: Code(s): M51.36 - Other intervertebral disc degeneration, lumbar region Category: Medical (6) Trochanteric bursitis, left hip: Code(s): M70.62 - Trochanteric bursitis, left hip Category: Medical Plan Masspat was reviewed and without concerns. No obvious signs of diversion, abuse or misuse of the opioid medications. Prescription for oxycodone 5 mg p.o. twice daily as needed sent to the pharmacy. All questions and concerns have been answered, patient agrees with the plan. Follow up in 1 month, sooner if needed. Medications: Refilled oxycodone Partial Fill upon patient request. 5 mg PO BID 30 days PRN 60 tabs 0RF pain M17.0 - Bilateral primary osteoarthritis of knee, M96.1 - Postlaminectomy syndrome, not elsewhere classified, Z79.891 - senior care (current) use of opiate analgesic Coding Level of Care Code Est Pt Level 3 (24077) Complex EM visit Add On G2211 Diagnoses Peripheral neuropathy G62.9 Spondylosis without myelopathy or radiculopathy, lumbar region M47.816 Bilateral primary osteoarthritis of knee M17.0 Chronic pain syndrome G89.4 Disc degeneration, lumbar M51.36 Trochanteric bursitis, left hip M70.62
--- OUTSIDE RECORDS SUMMARY | 2024-07-18 08:16 | XMS_ITS ---
Author Organization [facility] Address [address] [place] [address] Care Team Providers Care District Operations Manager Name Role Phone Alma IVORY, Debbi Garcia Primary Care Provider Un available Ratna Chua Unavailable [phone] Allergies Allergen (clinical drug ingredient) Drug/Non Drug [...] Date Performed Result Body Sit e , Z3492-EPTWW/INJECT, JOINT/BURSA 03/20/2024 N/A Encounters Encounter Location Date Provider Diagnosis [facility] [address] [address] 03/20/2024 Ratna Chua Sinus tarsitis of left [...] Pending Test Test Name Order Date , C0739-QOXPY/INJECT, JOINT/BURSA 0 03/20/2024 Next Appt Details Follow Up: 3 Months, Reason: Provider Name:Ratna boyd, 07/24/2024 09:00:00 AM, [address] [place] [address], [address], Procedure Notes * Category Sub-Category Detail Notes [...] Leandra ESPINOZA ADOB: [birth year] (73 yo F)Acc No.[id number]:03/20/2024 Progress Note Patient:?Leandra ESPINOZA Provider:?Ratna Chua DPM :1950???Age:73 Y???Sex:Female D ate:03/20/2024 Address:[address] [place], [place] [address] Pcp:Wilberto Cook Subjective: * Chief Complaints: * [...] abdominoplasty 11/11/2014Pain Stimulator removed- 3 days [facility] 08/28/2018 * Hospitalization/Major Diagno stic [...] of 10.? * Procedure Codes:? DRAIN /INJECT, JOINT/ERTFEG4095 INJ BETAMETHSN ACTAT&SOD PHOSPH-3MG * Preventive Medicine:? [...] DPM Date:?0 03/20/2024 Generated for Yissel patel/Luca/Han on:?07/18/2024 08:16 AM EDT History and Physical Notes * [...]
--- OUTSIDE RECORDS SUMMARY | 2024-07-18 08:16 | XMS_ITS | Patient Health Record ---
Author Organization [facility] Address [address] [facility] [place] [address] Care Team Providers Care License And Permit Specialist Name Role Phone Alma IVORY, Debbi Garcia Primary Care Provider Un available Ratna Chua Unavailable [phone] Emanuel Crawford Unavailable [phone] Allergies Allergen (clinical drug ingredient) Drug/Non Drug [...] Problem Status W/U Status Risk Notes Problem Primary osteoarthriti s, left ankle and foot (M19.072) Active confirmed Problem Acquired hallux valgus (86033789) Hallux valgus (acquired), left foot (M20.12) Active confirmed Problem Acquired hammer toe of left foot (4046339308301959) Other hammer toe(s) (acquired), left foot (M20.42) Active confirmed Problem 840811560 Lymphedema (I89.0) Active confirmed Problem 40714879260487588 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 Vital Signs Blood pressure diastolic 75 mm Hg 03/20/2024 Height 5ft2in in 03/20/2024 Blood pressure systolic 126 mm Hg 03/20/2024 Weight 150 lbs 03/20/2024 BMI 27.43 kg/m2 03/20/2024 Procedures Procedure Date Ordered Date Performed Result Body Sit e , T0428-GZMZI/INJECT, JOINT/BURSA 03/20/2024 N/A Encounters Encounter Location Date Provider Diagnosis [facility] [place] [address] [place] [address] 08/22/2023 Emanuel Crawford Pain in left foot M79.672 ; Primary osteoarthritis, left ankle and foot M19.072 ; Metatarsalgia, left foot M77.42 ; 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 ; Other hammer toe(s) (acquired), left foot M20.42 ; Peroneal tendinitis of left lower extremity M76.72 and Hallux valgus (acquired), left foot M20.[address] [address] 11/29/2023 Emanuel Crawford Pain in left foot M79.672 ; Primary osteoarthritis, left ankle and foot M19.072 ; Metatarsalgia, left foot M77.42 ; 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 ; Other hammer toe(s) (acquired), left foot M20.42 ; Peroneal tendinitis of left lower extremity M76.72 ; Hallux valgus (acquired), left foot M20.12 and Lymphedema I89.[address] [address] 03/20/2024 Ratna Chua Sinus tarsitis of left [...] J0702- INJECT or DRAIN, JOINT/BUR SA 03/08/2023, R0486-VNVOM/INJECT, JOINT/BURSA 0 03/20/2024, E6003-RVQCY/INJECT, JOINT/BURSA 0 10/16/2018 X ray : Ankle, right 3V 09/05/2011 Next Appt Details Provider Name:Ratna boyd, 07/24/2024 09:00:00 AM, [address] [facility], [place], [address], Insurance Providers Payer Name Payer Address Payer Phone Subscriber Number Group Number Insured Name Patient Relationship to Insured Coverage Start Date Coverage End Date Medicare [facility] [employer] [address] [place] [address] [id number] Leandra Galvez Self - patient is the insured [facility] [address] [place] [address] [phone] [id number] Leandra Galvez Self - patient is [...] abdominoplasty 11/11 Pain Stimulator removed- 3 days [facility] 08/28/2018
--- OUTSIDE RECORDS SUMMARY | 2024-07-18 08:17 | XMS_ITS | Clinical Summary ---
Author Organization [facility] Address [address] [place] [address] Care Team Providers Care Tree Driller Name Role Phone Unavailable Primary Care Provider [...] - 2023-2 5 season) 2023 Influenza Vaccine (Season Ended) 2024 RSV Immunization Adult Patie nts (1 - [...] age to complete this topic Meningococcal B Vaccine Aged Out No l onger eligible based on patient's age to complete this topic RSV Immunization Patients Un meet 20 months Aged Out No longer eligible b ased on patient's age to complete this topic Varicella Vaccines Aged Out No longer eligible based on patient's age to complete this topic
--- OUTSIDE RECORDS SUMMARY | 2024-07-18 08:17 | XMS_ITS | Data Portability ---
Author Organization [facility], [facility] Address [address] [place] [address] Care Team Providers Care Merchant Seaman Name Role Phone JEREMY THAKKAR Primary Care Provider [phone] Assessment Encounter Date Assessment Date Assessment LastModified by Organization Details LastModified Time 07/03/2024 07/03/2024 I am seeing the patient today under the supervision of Dr Parada who was available but who did not see the patient. [email or web address] Not available 07/03/2024 08:30:14 Plan of Treatment Reminders Order Date Submit Date Provider Last Modified By Organization Details Last Modified Time Details Appointments RECHECK 15 2024 07:45A M Adan Vang PA-C Not available Not [...] Organization Details Recorded Time No complaint s 322085492 Active Status: 'I'; Not Available [facility] 4 09:25:07 Pain of left shoulder joint 328217622732 38680 Active 2023 Dede Felix PA-C [address] [place], [place] [address] [address], [place], [address] , [facility] 4 12:33:30 Idiopathi c osteoarth ritis 021267497 Active 2019 Problem Code: M17.0; Problem Code Type: ICD-10; Status: 'A'; Not Available [employer] 4 11:57:27 Bilateral shoulder osteoarth ritis 380637259801 108 Active [address], [place], [address] , [facility] 4 09:08:04 Osteoarth ritis of joint of left shoulder region 467404826540 108 Active 2023 Dede Felix PA-C [address], [place], [address] , [facility] 4 16:55:44 Problem Notes None recorded. Procedures Surgical History Date Name Laterality Status Provider Name and Address Organization Details Recorded Time 5 JZShoulder INJ completed Adan Vang PA-C [address], [place], [address], [facility] 07/03/2024 08:30:10 5 Sports Shoulder completed Dede Park PA-C [address], [place], [address], [facility] 03/20/2024 12:33:07 4 Sports Shoulder completed Dede Felix PA-C [address], [place], [address], [facility] 12/03/2023 12:32:04 4 Sports Shoulder completed Dede Felix PA-C [address], [place], [address], [facility] 08/30/2023 16:55:10 4 Shoulder Kenalog 2cc Injection, Bilateral completed Dede Felix PA-C [address], [place], [address], [facility] 06/01/2023 09:07:52 Imaging Results None recorded. Procedure Notes None recorded. Medical Equipment None Reported. Allergies Allergen ID Allergen Name Allergen Category Reaction Reaction Severity Criticality Documentation Date Start Date Code Code System Note Provider Name and Address Organization Details Recorded Time 62431 Non-stero idal anti-infl ammatory agent (product) medicatio n Not available Not available Not available 05/21/20232012 22727 005 SNOMED Not Available [facility] 4 12:44:51 Medications Name Sig Start Date [...] amitriptyli ne 25 mg tablet TAKE 1 TAB DAILY AT BEDTIME FOR 2 WEEKS, THEN [...] oxycodone 5 mg tablet TAKE 1 TABLET ORALLY 2 TIMES A DAY NEEDED FOR PAIN FOR 30 DAYS PARTIAL FILL UPON PATIENT REQUEST. active Not Available Not Available No t [...] Updated DateTime 06/01/2023 157.48 cm 32.6 kg/m2 58550.44 g Sri John [facility] 06/01/2023 08:55:44 Date Recorded Body height Body mass index (BMI) Body weight Provider Name and Address Organization Details Last Updated DateTime 08/30/2023 157.48 cm 32.6 kg/m2 46560.44 g CHRISTY Angela [facility] 08/30/2023 08:53:29 Date Recorded Body height Body mass index (BMI) Body weight Provider Name and Address Organization Details Last Updated DateTime 12/03/2023 157.48 cm 32.6 kg/m2 69196.44 g CHRISTY Angela [facility] 12/03/2023 13:39:54 Date Recorded Body height Body mass index (BMI) Body weight Provider Name and Address Organization Details Last Updated DateTime 03/21/2024 157.48 cm 32.6 kg/m2 26992.44 g RUTHIE ALVAREZEUGamaliel [facility] 03/21/2024 08:26:33 Date Recorded Body height Body mass index (BMI) Body weight Provider Name and Address Organization Details Last Updated DateTime 07/03/2024 157.48 cm 32.6 kg/m2 20084.44 g Jonny Gamino [facility] 07/03/2024 08:28:21 Social History Question Answer Notes LastModified by Organizat ion Details LastModified Time Tobacco Smoking Status Former Smoker CHRISTY JOSE ALEJANDRO shine [place] [facility] [place] [facility] 08/30/2023 08:54:11 What Is Your Level Of Alcohol Consumption? None Information not available 08/30/2023 When Did You Quit Smoking? 18+yearssin alma rosa humphries Information not available 08/30/2023 Which Of Your Hands Is Dominant? Right Information not available 08/30/2023 Do You Use Any Illicit Or Recreational Drugs? No Information not available 08/30/2023 Do You Or Have You Ever Used Any Other Forms Of Tobacco Or Nicotine? No hua Information not available 08/30/2023 Sex: Unknown Functional [...] SNOMED-CT Code Diagnosis ICD10 Code Diagnosis Note [id number] ILIANA White [address] [place] [address] 06/01/2023 08:34:49 06/01/2023 09:16:45 Bilateral shoulder osteoarthritis 3496111461 11965 M19.011 M19.284 1619695 ILIANA White [address] [place] [address] 08/30/2023 08:36:22 09/19/2023 13:31:49 Osteoarthritis of joint of left shoulder region 8815499995 65532 M19.762 2002365 ILIANA White [address] [place] [address] 12/03/2023 13:34:06 12/13/2023 09:36:44 Pain of left shoulder joint 7132353044 2266525 M25.062 [id number] ILIANA Pfeiffer [address] [place] [address] 03/21/2024 08:16:46 04/07/2024 10:04:41 Pain of left shoulder joint 0215677289 8221494 M25.465 [id number] ILIANA Robertson [address] [place] [address] 07/03/2024 08:10:29 07/03/2024 08:30:22 Pain of left shoulder joint 3404315941 6253735 M25.512 Health Concerns Section Related Observation LastModified by Organization Detai ls LastModified Time None Recorded Concern Status LastModified by Organization Details LastModified Time None Recorded Advance Directives Directive None Recorded Payers Encounter Date Sequence Insurance Name Policy Number Policy Van Covered Member ID Van Member ID Guarantor Name 06/01/2023 1 [place] Leandra Araujonancy [id number] Leandra Angela Gaylee 06/01/2023 2 [employer] - SENIOR SERVICES PLAN F (MEDICARE SUPPLEMENT) [id number] Leandra Araujonancy [id number] Leandra Araujoe 08/30/2023 1 [place] Leandra Galvez [id number] Leandra Angela Johnnette 08/30/2023 2 [employer] - SENIOR SERVICES PLAN F (MEDICARE SUPPLEMENT) [id number] Leandra Araujonancy [id number] Leandra Lopeznette 12/03/2023 1 [place] Leandra Araujonancy [id number] Leandra Angela Johnnette 12/03/2023 2 [employer] - SENIOR SERVICES PLAN F (MEDICARE SUPPLEMENT) [id number] Leandra Araujonancy [id number] Leandra Angela Johnnette 03/21/2024 1 [place] Leandra Araujonancy [id number] 6 Leandra Angela Johnnette 03/21/2024 2 [employer] - SENIOR SERVICES PLAN F (MEDICARE SUPPLEMENT) [id number] Leandra Angela Leonor [id number] Leandra Angela Gaylee 07/03/2024 1 [place] Leandra Araujonancy [id number] Leandra Galvez 07/03/2024 2 [facility] SERVICES PLAN F (MEDICARE SUPPLEMENT) [id number] Leandra Galvez [id number] Leandra Galvez Notes Date Note Type Note [...] x-rays of the right shoulder reviewed at [facility] today. AP view demonstrates mild [...] include infection and tendon rupture. Speech recognition noc analyst software was used to create portions of this document. An attempt at proofreading has been made to minimize errors. Please call for corrections. Dede Felix PA-C [address] [place] [address] [address] [facility] [place], [place], [address], [facility] [place] [facility] 06/01/2023 13:22:14 08/30/2023 text/html I am seeing the patient today under the supervision of Dr. Troy who was available but did not see the patient.CLINICAL UPDATE: 72-year-old right hand dominant female patient presents today for left shoulder pain. Last bilateral shoulders cortisone injection 06/01/23 provided good relief. Pain 08/26. HPI: She was evaluated previously for her [...] 4 view x-rays right shoulder reviewed at [facility] today. AP view demonstrates mild [...] and agrees with the plan. Speech recognition noc analyst software was used to create portions of this document. An attempt at proofreading has been made to minimize errors. Please call for corrections. Dede Felix PA-C [address], [place], [address], [facility] 08/30/2023 16:56:13 12/03/2023 text/html I am seeing [...] X-RAYS:Previous 4v x-rays right shoulder reviewed at [facility] today. AP view demonstrates mild [...] and agrees with the plan. Speech recognition noc analyst software was used to create portions of this document. An attempt at proofreading has been made to minimize errors. Please call for corrections. Dede Felix PA-C [address], [place], [address], [facility] 12/03/2023 13:56:44 03/21/2024 text/html [...] and agrees with the plan. Speech recognition noc analyst software was used to create portions of this document. An attempt at proofreading has been made to minimize errors. Please call for corrections. Dede Park PA-C [address] [facility] [address], [place], [address], [facility] 03/21/2024 09:13:42 OBGyn Episode No OBEpisode recorded.
--- OUTSIDE RECORDS SUMMARY | 2024-07-18 08:17 | XMS_ITS ---
Author Organization [facility] Address [address] [place] [address] Care Team Providers Care Wind Turbine Mechanic Name Role Phone Alma IVORY, Debbi Garcia Primary Care Provider Un available Ratna Chua Unavailable [phone] Encounters Encounter Location Date Provider Diagnosis [facility] [address] [place] [address] 03/20/2024 Ratna Chua Plan Of Treatment Next Appt Details Provider Name:Ratna boyd, 07/24/2024 09:00:00 AM, [address] [place], [address], Progress Notes * OLGA Leandra ADOB: [birth year] (73 yo F)Acc No.[id number]:03/20/2024 Progress Note Patient:?Leandra ESPINOZA Provider:?Ratna Chua DPM :1950???Age:73 Y???Sex:Female D ate:03/20/2024 Address:[address] [place] [address] Pcp:Wilberto Cook Subjective: * Chief Complaints: * [...] Date:?0 03/20/2024 Generated for Yissel patel/Luca/Han on:?07/18/2024 08:17 AM EDT
--- OUTSIDE RECORDS SUMMARY | 2024-07-18 08:18 | XMS_ITS ---
Author Organization [facility] Address [address] [place] [address] Care Team Providers Care Toe Lining Closer Name Role Phone Alma IVORY, Debbi Garcia Primary Care Provider Un available Ratna Chua Unavailable [phone] Emanuel Crawford Unavailable [phone] Allergies Allergen (clinical drug ingredient) Drug/Non Drug [...] Problem Status W/U Status Risk Notes Problem 520461575 Lymphedema (I89.0) Active confirmed Vital Signs Height 5ft 2in in 11/29/2023 Weight 177 lbs 11/29/2023 BMI 32.37 kg/m2 11/29/2023 Blood pressure systolic 124 mm Hg 11/29/19 24 Blood pressure diastolic 68 mm Hg 024 Encounters Encounter Location Date Provider Diagnosis [facility] [place] [address] [place] [address] 11/29/2023 Emanuel Crawford Pain in left foot [...] Provider Name:Ratna Bianchicolin boyd, 07/24/2024 09:00:00 AM, [address] [place] [address], [address], Procedure Notes * Category Sub-Category Detail [...] at peroneal insertion Med: Joint,Bursa (Sinus Tarsi,AJ) 78573, J0702 Injection # Med/Ankle joint bursa/capsule 1cc [...] Leandra ESPINOZA ADOB: [birth year] (73 yo F)Acc No.[id number]:11/29/2023 Progress Note Patient:?Leandra Espinoza Provider:?Emanuel Crawford DPM :1950???Age:73 Y???Sex:Female D ate:11/29/2023 [facility] Pcp:Wilberto Cook Subjective: * Chief Complaints: * [...] and abdominoplasty 11/11/2014Pain Stimulator removed- 3 days [facility] 08/28/2018 * Hospitalization/Major Diagno stic Procedure:?Denies [...] - I89.0? Plan: * Treatment: * Procedures:?Injection:?Tendon Origin/insertion?57762, J0702 Injection - Tendon Origin/Insertion w/ mixture [...] LEFT ankle --AL aspect .? * Procedure Codes:?56330 INJEC T TENDON ORIGIN/INSERT, Modifiers: XS J0702 [...] Crawford DPM Date:? 024 Generated for Yissel patel/Luca/Seemasmitting on:?07/18/2024 08:17 AM EDT History and Physical Notes * [...]
[2024-07-18 08:20] VITALS: BP 131/69; PULSE 83; O2SAT 98; BMI 25.6
== END 2024-07-18 08:57 | disposition home or self-care (01) ==
LOC: HO.PMC 08:10
PROVIDERS: PCP Internal Medicine; Visit Provider Registered Nurse Emergency
DX: G62.9 Polyneuropathy, unspecified (principal); M47.816 Spondylosis without myelopathy or radiculopathy, lumbar region; M17.0 Bilateral primary osteoarthritis of knee; G89.4 Chronic pain syndrome; M51.369 Other intervertebral disc degeneration, lumbar region without mention of lumbar back pain or lower extremity pain; M70.62 Trochanteric bursitis, left hip
CPT/HCPCS: 99213; G2211

== ENCOUNTER → 2024-07-18 08:09 | Outpatient (BNVA) | payer MEDICARE, OTHER, SELFPAY | PROVIDERS: PCP Internal Medicine; Visit Provider Registered Nurse Emergency | DX: M47.816 Spondylosis without myelopathy or radiculopathy, lumbar region (principal); M17.0 Bilateral primary osteoarthritis of knee; M51.369 Other intervertebral disc degeneration, lumbar region without mention of lumbar back pain or lower extremity pain; M70.62 Trochanteric bursitis, left hip; M96.1 Postlaminectomy syndrome, not elsewhere classified; G89.4 Chronic pain syndrome; G62.9 Polyneuropathy, unspecified; Z51.81 Encounter for therapeutic drug level monitoring; Z79.891 Long term (current) use of opiate analgesic | CPT/HCPCS: 99212 ==

== ENCOUNTER 2024-08-15 08:02 | Outpatient (AMB) | payer MEDICARE, OTHER, SELFPAY ==
--- OUTSIDE RECORDS SUMMARY | 2024-08-15 08:05 | XMS_ITS | Patient Health Record ---
Author Organization [facility] Address [address] [place] [address] Care Team Providers Care Cook Helper Vegetable Name Role Phone Alma IVORY, Debbi Primary Care Provider Rashid Narayan Unavailable [phone] Allergies Allergen (clinical drug ingredient) Drug/Non Drug [...] Status Risk Notes Problem Irritable bowel syndrome (22348718) Irritable bowel syndrome (564.1) Active confirmed Problem Constipation (54551224) Constipation (564.00) Active confirmed Problem Screening for malignant neoplasm of colon (959707554) Screening for colorectal cancer (V76.51) Active confirmed Problem 325674814 Abdominal bloating (R14.0) Active confirmed Problem 77070240 Abdominal gas pain (R14.1) Active confirmed Plan Of Treatment Pending Test Test Name Order Date CELIAC PANEL #10 09/17/2017 Future Test Test Name Order Date COLONOSCOPY 11/04/2013 Next Appt Details Provider Name:Rashid Wilson , 09/11/2024 10:40:00 AM, [address], [address], [place], [address], Insurance Providers Payer Name Payer Address Payer Phone Subscriber Number Group Number Insured Name Patient Relationship to Insured Coverage Start Date Coverage End Date MEDICARE OF [place] [address] [place] [id number] TURNER ESPINOZA Self - patient is the insured [employer] ([employer]) [address] [place] [address] [id number] TURNER ESPINOZA Self - patient is the insured Medical (General) History Medical History History ICD Code 06/07/2004 Colonoscopy w/small internal hemorrhoids Uses Hctz for edema due to the Lyrica IBS--uses Hyoscyamine prn wi th relief--constipation, but stable on her bowel regimen Hyperlipidemia Shingles Denies VT,DM,CVA,Lung disease,renal dise ase Back pain with disc disease- -use Vicodin QID-has a neuropain stimulator in place Surgical History Surgery Date(Month/Year) tonsillectomy 1971 hysterectomy 2009 cystocele repair 2008 bunionectomy 2008 laminectomy 2003 cholecystectomy 1988 shoulder surgery-right right knee arthroscopy 2002 appendectomy 09/01/2013 lap band insertion--Dr. Tierney-lost 30 # Marsupialization for Bartholin's glands cysts and infections
--- NOTE | 2024-08-15 08:29 | A.OFFVIS_ITS ---
Vital Signs 08/15/24 08:34 Height 5 ft 2 in BP 120/77 Blood Pressure Location Lt brachial Position Sitting Pulse 79 Pulse Source Pulse Oximeter Intake Visit Reasons: Pill count Intake Note: Leandra comes in today for a pill count to oxycodone, patient should have 4 tablets and presents with 4 tablets which she last took last night 08/14/24. Pain today 07/26 Graduate Research Assistant Required: No Accompanied by: Self / Same As Patient Allergies buprenorphine [Belbuca] Allergy (Unknown, Verified 08/15/24 08:44) stomach upset NSAIDS (Non-Steroidal Anti-Inflamma Allergy (Unknown, Verified 08/15/24 08:44) Stomach Upset HPI Comments Details: Leandra presents back to the office today for follow up chronic pain and chronic opioid therapy management. Patient is prescribed oxycodone 5 mg tablets, take 2 tablets daily as needed. Patient arrived today with the expectation of having 4 pills, she presented 4 pills which were counted in the presence of two staff members and returned to the patient in the original prescription bottle. This demonstrates responsible attitude toward patient's opioid medications. Pain is reported today as 07/26 and last dose of pain medication was taken yesterday evening. Denies side effects including somnolence, constipation, itching, dyspnea, rash, dizziness, urinary retention or weakness. She has PHQ score is equal to 1, Her opioid addiction risk score is equal to 2 Total score is equal to 3 she is low risk for opioid addiction. [facility] Medical History Osteoarthritis History of osteopenia Obesity (BMI 30.0-34.9) Prolapse of anterior vaginal wall Essential hypertension Dyslipidemia Irritable bowel syndrome Chronic pain syndrome Bilateral primary osteoarthritis of knee Spondylosis without myelopathy or radiculopathy, lumbar region Surgical History History of tonsillectomy History of hysterectomy History of carpal tunnel surgery History of cholecystectomy History of laparoscopic appendectomy History of lumbar laminectomy History of reduction mammoplasty H/O abdominoplasty Hx of bariatric surgery Family History Mother Diabetes mellitus Essential hypertension Cardiovascular disease Daughter Wernicke-Korsakoff syndrome (alcoholic) Social History Household Members: None Household Members Other:: 0 Housing: House Do you presently have visiting nurse or other home services: No Alcohol intake: never Patient Tobacco Use Status: Former Tobacco user e-Cigarette/Vaping Use: Never Used Advance Directives Date on File: 12/22/21 service: No Current occupational status: retired Cognitive needs: No Hearing needs: No Vision needs: No Review of Systems Const All systems reviewed & are unremarkable except as noted in HPI and below Physical Exam Vital Signs: Last Vital Signs Pulse 79 08/15/24 08:34 BP 120/77 08/15/24 08:34 General: awake, alert, oriented. Answers questions appropriately. Fully engaged in examination. Skin: warm, dry, intact without visible rashes or lesions. HEENT: Normocephalic. Cardiac: External chest normal in appearance. Respiratory: Cough without audible wheezing or stridor. Abdomen: without gross distension. MS: No obvious swelling or deformities. Able to transition from sit to stand unassisted. Ambulates with antalgic gait Neurological: Oriented to person, place, time and situation. Thought process intact. Psychiatric: Appropriate mood and affect. Good judgment and insight. Results Reviewed Results Reviewed: 02/29/24 EMG IMPRESSION: 1. This is a normal study. 2. There is no electrodiagnostic evidence for peroneal neuropathy, tibial neuropathy, lumbosacral plexopathy, lumbar radiculopathy, or peripheral neuropathy. 11/2023 x-ray lumbar spine Independently reviewed: Worsening degenerative disc disease. Official radiologist's reading pending. CT/CT abdomen pelvis w IV 10/26/22 OSSEOUS STRUCTURES: No acute or suspicious osseous abnormality. Degenerative changes throughout the spine. MR LUMBAR SPINE WITHOUT CONTRAST 02/12/24 CLINICAL INFORMATION: Lumbar spondylosis COMPARISON: None available. TECHNIQUE: MRI of the lumbar spine was obtained using routine sequences without contrast. FINDINGS: There are 5 nonrib-bearing lumbar-type vertebrae. Mild dextrocurvature of the lumbar spine. Preservation of the normal lumbar lordosis. Grade 1 anterolisthesis at L3-4 and mild retrolisthesis at L1-2 and L4-5. Diffusely heterogeneous bone marrow signal is degenerative. Subacute endplate changes at L4-5. The vertebral body heights are preserved. Multilevel disc desiccation with severe disc height loss at L4-5. Multilevel endplate osteophytosis. The visualized spinal cord is normal in caliber. No abnormal cord signal. The conus medullaris terminates at L1-2. T12-L1: No significant spinal canal or neural foraminal narrowing. L1-2: Shallow disc bulge and bilateral facet arthrosis. No significant spinal canal or neural foraminal narrowing. L2-3: Shallow disc bulge and bilateral facet arthrosis. No significant spinal canal or neural foraminal narrowing. L3-4: Shallow disc bulge and bilateral facet arthrosis. No significant spinal canal or neural foraminal narrowing. L4-5: Diffuse disc bulge and bilateral facet arthrosis. Moderate left neural neural foraminal narrowing with mass effect on the left exiting L4 nerve roots. The disc also abuts the exiting nerve roots on the right. L5-S1: Diffuse disc bulge with superimposed annular fissure. Bilateral facet arthrosis. Mild to moderate right neural foraminal narrowing with mass effect on the right exiting L5 nerve roots. The paravertebral soft tissues are unremarkable. IMPRESSION: Multilevel lumbar spondylosis as described above without significant spinal canal narrowing. Neural foraminal narrowing is worst and moderate on the left at L4-5 with mass effect on the left exiting L4 nerve roots. There is also mild to moderate right neural foraminal narrowing at L5-S1 with mass effect on the right exiting L5 nerve roots. Assessment & Plan Assessment & Plan (1) Peripheral neuropathy: Code(s): G62.9 - Polyneuropathy, unspecified Category: Medical (2) Spondylosis without myelopathy or radiculopathy, lumbar region: Code(s): M47.816 - Spondylosis without myelopathy or radiculopathy, lumbar region Category: Medical (3) Bilateral primary osteoarthritis of knee: Code(s): M17.0 - Bilateral primary osteoarthritis of knee Category: Medical (4) Chronic pain syndrome: Code(s): G89.4 - Chronic pain syndrome Category: Medical (5) Disc degeneration, lumbar: Code(s): M51.36 - Other intervertebral disc degeneration, lumbar region Category: Medical (6) Trochanteric bursitis, left hip: Code(s): M70.62 - Trochanteric bursitis, left hip Category: Medical Plan Masspat was reviewed and without concerns. No obvious signs of diversion, abuse or misuse of the opioid medications. Prescription for oxycodone 5 mg p.o. twice daily as needed sent to the pharmacy. All questions and concerns have been answered, patient agrees with the plan. Follow up in 1 month, sooner if needed. Medications: Refilled oxycodone Partial Fill upon patient request. 5 mg PO BID PRN 60 tabs 0RF pain 30 days M17.0 - Bilateral primary osteoarthritis of knee, M96.1 - Postlaminectomy syndrome, not elsewhere classified, Z79.891 - shelter (current) use of opiate analgesic Coding Level of Care Code Est Pt Level 3 (03106) Complex EM visit Add On G2211 Diagnoses Peripheral neuropathy G62.9 Spondylosis without myelopathy or radiculopathy, lumbar region M47.816 Bilateral primary osteoarthritis of knee M17.0 Chronic pain syndrome G89.4 Disc degeneration, lumbar M51.36 Trochanteric bursitis, left hip M70.62
[2024-08-15 08:34] VITALS: BP 120/77; PULSE 79
== END 2024-08-15 09:05 | disposition home or self-care (01) ==
LOC: HO.PMC 08:03
PROVIDERS: PCP Internal Medicine; Visit Provider Registered Nurse Emergency
DX: G62.9 Polyneuropathy, unspecified (principal); M47.816 Spondylosis without myelopathy or radiculopathy, lumbar region; M17.0 Bilateral primary osteoarthritis of knee; G89.4 Chronic pain syndrome; M51.369 Other intervertebral disc degeneration, lumbar region without mention of lumbar back pain or lower extremity pain; M70.62 Trochanteric bursitis, left hip
CPT/HCPCS: 99213; G2211

== ENCOUNTER → 2024-08-15 08:02 | Outpatient (BNVA) | payer MEDICARE, OTHER, SELFPAY | PROVIDERS: PCP Internal Medicine; Visit Provider Registered Nurse Emergency | DX: Z51.81 Encounter for therapeutic drug level monitoring (principal); G62.9 Polyneuropathy, unspecified; M47.816 Spondylosis without myelopathy or radiculopathy, lumbar region; M17.0 Bilateral primary osteoarthritis of knee; M51.360 Other intervertebral disc degeneration, lumbar region with discogenic back pain only; M70.62 Trochanteric bursitis, left hip; G89.4 Chronic pain syndrome; Z79.891 Long term (current) use of opiate analgesic | CPT/HCPCS: 99212 ==

== ENCOUNTER 2024-09-12 08:19 | Outpatient (AMB) | payer MEDICARE, OTHER, SELFPAY ==
--- OUTSIDE RECORDS SUMMARY | 2024-09-08 11:45 | XMS_ITS ---
Author Organization [facility] Address [address] [place] [address] Care Team Providers Care Water Resource Engineering Specialist Name Role Phone Alma IVORY, Debbi Garica Primary Care Provider Un available Ratna Chua Unavailable [phone] Allergies Allergen (clinical drug ingredient) Drug/Non Drug [...] Active Encounters Encounter Location Date Provider Diagnosis [facility] [address] [address] 09/08/2024 Ratna Chua Plan Of Treatment Next Appt Details Provider Name:Ratna Jessica boyd, 12/31/2024 09:15:00 AM, [address] [place], [address], Progress Notes * Leandra ESPINOZA ADOB: [birth year] (73 yo F)Acc No.[id number]:09/08/2024 Progress Note Patient: Leandra HURTADO Provider: Kvng Chua DPM :1950 A ge:73 Y S ex:Female Date:09/08/2024 Address:[address] [place], [place] [phone] Pcp:Wilberto Cook Subjective: * Chief Complaints: * [...] Pending * Provider: Kvng Chua DPM Date: 09/08/2024 Generated for Yissel patel/Luca/Han on: 09/12/2024 08:25 AM EDT
[2024-09-12 08:35] VITALS: BP 111/71; PULSE 92; RESP 16; O2SAT 100; BMI 25.2
--- NOTE | 2024-09-12 08:35 | MHC.OFFVIS ---
Vital Signs 09/12/24 08:35 Height 5 ft 2 in Weight 138 lb BMI 25.2 BMI Reason not done Patient refused/unable BP 111/71 Blood Pressure Location Rt brachial Position Sitting Respiration 16 Pulse 92 Pulse Source Pulse Oximeter Pulse Oximetry (%) 100 Intake Visit Reasons: Pill Count Intake Note: Patient here for a routine pill count of Oxycodone. Per directions patient should have 4 pills. Patient presented 6 pills. She took last pill 09/11/24 at 2pm. Under Cutting Machine Operator Required: No Accompanied by: Self / Same As Patient Allergies buprenorphine (Belbuca) Allergy (Unknown, Verified 09/12/24 08:38) stomach upset NSAIDS (Non-Steroidal Anti-Inflamma Allergy (Unknown, Verified 09/12/24 08:38) Stomach Upset HPI Comments Details: Leandra presents back to the office today for follow up chronic pain and chronic opioid therapy management. Patient is prescribed oxycodone 5 mg tablets, take 2 tablets daily as needed. Patient arrived today with the expectation of having 4 pills, she presented 6 pills which were counted in the presence of two staff members and returned to the patient in the original prescription bottle. This demonstrates responsible attitude toward patient's opioid medications. Pain is reported today as 5/10 and last dose of pain medication was taken yesterday evening. Denies side effects including somnolence, constipation, itching, dyspnea, rash, dizziness, urinary retention or weakness. She endorses some increase in the neuropathy to her feet, she has been taking 50 mg of amitriptyline at bedtime with good effect. She has PHQ score is equal to 1, Her opioid addiction risk score is equal to 2 Total score is equal to 3 she is low risk for opioid addiction. [facility] Medical History Osteoarthritis History of osteopenia Obesity (BMI 30.0-34.9) Prolapse of anterior vaginal wall Essential hypertension Dyslipidemia Irritable bowel syndrome Chronic pain syndrome Bilateral primary osteoarthritis of knee Spondylosis without myelopathy or radiculopathy, lumbar region Surgical History History of tonsillectomy History of hysterectomy History of carpal tunnel surgery History of cholecystectomy History of laparoscopic appendectomy History of lumbar laminectomy History of reduction mammoplasty H/O abdominoplasty Hx of bariatric surgery Family History Mother Diabetes mellitus Essential hypertension Cardiovascular disease Daughter Wernicke-Korsakoff syndrome (alcoholic) Social History Household Members: None Household Members Other:: 0 Housing: House Do you presently have visiting nurse or other home services: No Alcohol intake: never Patient Tobacco Use Status: Former Tobacco user e-Cigarette/Vaping Use: Never Used Advance Directives Date on File: 12/22/21 service: No Current occupational status: retired Cognitive needs: No Hearing needs: No Vision needs: No Review of Systems Const All systems reviewed & are unremarkable except as noted in HPI and below Physical Exam Vital Signs: Last Vital Signs Pulse 92 09/12/24 08:35 Resp 16 09/12/24 08:35 BP 111/71 09/12/24 08:35 Pulse Ox 100 09/12/24 08:35 BMI result Body Mass Index 25.2 General: awake, alert, oriented. Answers questions appropriately. Fully engaged in examination. Skin: warm, dry, intact without visible rashes or lesions. HEENT: Normocephalic. Cardiac: External chest normal in appearance. Respiratory: Cough without audible wheezing or stridor. Abdomen: without gross distension. MS: No obvious swelling or deformities. Able to transition from sit to stand unassisted. Ambulates with antalgic gait Neurological: Oriented to person, place, time and situation. Thought process intact. Psychiatric: Appropriate mood and affect. Good judgment and insight. Results Reviewed Results Reviewed: 02/29/24 EMG IMPRESSION: 1. This is a normal study. 2. There is no electrodiagnostic evidence for peroneal neuropathy, tibial neuropathy, lumbosacral plexopathy, lumbar radiculopathy, or peripheral neuropathy. 11/2023 x-ray lumbar spine Independently reviewed: Worsening degenerative disc disease. Official radiologist's reading pending. CT/CT abdomen pelvis w IV 10/26/22 OSSEOUS STRUCTURES: No acute or suspicious osseous abnormality. Degenerative changes throughout the spine. MR LUMBAR SPINE WITHOUT CONTRAST 02/12/24 CLINICAL INFORMATION: Lumbar spondylosis COMPARISON: None available. TECHNIQUE: MRI of the lumbar spine was obtained using routine sequences without contrast. FINDINGS: There are 5 nonrib-bearing lumbar-type vertebrae. Mild dextrocurvature of the lumbar spine. Preservation of the normal lumbar lordosis. Grade 1 anterolisthesis at L3-4 and mild retrolisthesis at L1-2 and L4-5. Diffusely heterogeneous bone marrow signal is degenerative. Subacute endplate changes at L4-5. The vertebral body heights are preserved. Multilevel disc desiccation with severe disc height loss at L4-5. Multilevel endplate osteophytosis. The visualized spinal cord is normal in caliber. No abnormal cord signal. The conus medullaris terminates at L1-2. T12-L1: No significant spinal canal or neural foraminal narrowing. L1-2: Shallow disc bulge and bilateral facet arthrosis. No significant spinal canal or neural foraminal narrowing. L2-3: Shallow disc bulge and bilateral facet arthrosis. No significant spinal canal or neural foraminal narrowing. L3-4: Shallow disc bulge and bilateral facet arthrosis. No significant spinal canal or neural foraminal narrowing. L4-5: Diffuse disc bulge and bilateral facet arthrosis. Moderate left neural neural foraminal narrowing with mass effect on the left exiting L4 nerve roots. The disc also abuts the exiting nerve roots on the right. L5-S1: Diffuse disc bulge with superimposed annular fissure. Bilateral facet arthrosis. Mild to moderate right neural foraminal narrowing with mass effect on the right exiting L5 nerve roots. The paravertebral soft tissues are unremarkable. IMPRESSION: Multilevel lumbar spondylosis as described above without significant spinal canal narrowing. Neural foraminal narrowing is worst and moderate on the left at L4-5 with mass effect on the left exiting L4 nerve roots. There is also mild to moderate right neural foraminal narrowing at L5-S1 with mass effect on the right exiting L5 nerve roots. Assessment & Plan Assessment & Plan (1) Peripheral neuropathy: Code(s): G62.9 - Polyneuropathy, unspecified Category: Medical (2) Spondylosis without myelopathy or radiculopathy, lumbar region: Code(s): M47.816 - Spondylosis without myelopathy or radiculopathy, lumbar region Category: Medical (3) Bilateral primary osteoarthritis of knee: Code(s): M17.0 - Bilateral primary osteoarthritis of knee Category: Medical (4) Chronic pain syndrome: Code(s): G89.4 - Chronic pain syndrome Category: Medical (5) Disc degeneration, lumbar: Code(s): M51.36 - Other intervertebral disc degeneration, lumbar region Category: Medical (6) Trochanteric bursitis, left hip: Code(s): M70.62 - Trochanteric bursitis, left hip Category: Medical Plan Masspat was reviewed and without concerns. No obvious signs of diversion, abuse or misuse of the opioid medications. Prescription for oxycodone 5 mg p.o. twice daily as needed sent to the pharmacy. Continue with amitriptyline 50 mg p.o. q.h.s. All questions and concerns have been answered, patient agrees with the plan. Follow up in 1 month, sooner if needed. Medications: Changed From amitriptyline 1 tab daily at bedtime for 2 weeks, then may increase to 2 tabs daily at bedtime 25 mg PO BEDTIME 90 days 90 tabs 0RF To amitriptyline 1 tab daily at bedtime 50 mg PO BEDTIME 90 tabs 0RF 90 days Refilled oxycodone Partial Fill upon patient request. 5 mg PO BID PRN 60 tabs 0RF pain 30 days M17.0 - Bilateral primary osteoarthritis of knee, M96.1 - Postlaminectomy syndrome, not elsewhere classified, Z79.891 - alf (current) use of opiate analgesic Coding Level of Care Code Est Pt Level 3 (85419) Complex EM visit Add On G2211 Diagnoses Peripheral neuropathy G62.9 Spondylosis without myelopathy or radiculopathy, lumbar region M47.816 Bilateral primary osteoarthritis of knee M17.0 Chronic pain syndrome G89.4 Disc degeneration, lumbar M51.36 Trochanteric bursitis, left hip M70.62
== END 2024-09-12 09:11 | disposition home or self-care (01) ==
LOC: HO.PMC 08:20
PROVIDERS: PCP Internal Medicine; Visit Provider Registered Nurse Emergency
DX: G62.9 Polyneuropathy, unspecified (principal); M47.816 Spondylosis without myelopathy or radiculopathy, lumbar region; M17.0 Bilateral primary osteoarthritis of knee; G89.4 Chronic pain syndrome; M51.369 Other intervertebral disc degeneration, lumbar region without mention of lumbar back pain or lower extremity pain; M70.62 Trochanteric bursitis, left hip
CPT/HCPCS: 99213; G2211

== ENCOUNTER → 2024-09-12 08:19 | Outpatient (BNVA) | payer MEDICARE, OTHER, SELFPAY | PROVIDERS: PCP Internal Medicine; Visit Provider Registered Nurse Emergency | DX: Z51.81 Encounter for therapeutic drug level monitoring (principal); G62.9 Polyneuropathy, unspecified; M47.816 Spondylosis without myelopathy or radiculopathy, lumbar region; M17.0 Bilateral primary osteoarthritis of knee; M70.62 Trochanteric bursitis, left hip; M51.369 Other intervertebral disc degeneration, lumbar region without mention of lumbar back pain or lower extremity pain; F11.20 Opioid dependence, uncomplicated; G89.4 Chronic pain syndrome | CPT/HCPCS: 99212 ==

== ENCOUNTER 2024-10-10 08:07 | Outpatient (AMB) | payer MEDICARE, OTHER, SELFPAY ==
--- OUTSIDE RECORDS SUMMARY | 2023-08-10 08:23 | XMS_ITS | Continuity of Care Document ---
Author Organization [facility] Address [address] MD Michael [address] Phone Care Team Providers Care Floor Care Specialist Name Role Phone Navdeep IVORY, RVT, RPVI, [...] Diagnoses Date Provider Providers Copied on Encounter [place] [facility] MD WETZEL, [address] [place] [address] Dr Valenzuela 1000Suite 1000Michael [place], [id number], tel:[phone] CVR - [place] No Information 4 Navdeep IVORY RVT, CAROLA Mike. [address] [place] [address], [facility] [place], [id number] , [place]. tel:[phone] Office/Outpt E&M Established 15 Mins- [place] & [place] [facility] MD WEZTEL, [address] [place] [address] Dr Valenzuela 1000SuMichael toure MD, [id number], [place] tel:[phone] CVR - [place] Lymphedema, not elsewhere classifiedCramp and spasmRestless legs syndrome 4 Navdeep IVORY RVT, CAROLA Mike. [address] [place] [address], [place], [place], [id number] , [place]. tel:[phone] Referring Provider: Debbi Garcia, [address] [place] [address], [address]. tel:[phone] [place] [facility] MD WETZEL, [address] [place] [address] Dr Valenzuela 1000Suite Michael Sanchez MD, [id number], [place] tel:[phone] CVR - [facility] Chronic venous hypertension (idiopathic) with other complications of bilateral lower extremity 4 Navdeep IVORY RVT, CAROLA Mike. [address] [facility], [address], [facility] [place], [id number] , [place]. tel:[phone] Referring Provider: Debbi Garcia, [address] [facility] 262 [place], [address]. tel:[phone] [facility], [address] [place] [address] Dr Valenzuela 1000Suite 1000Michael [place], [id number], [place] tel:[phone] CVR - [facility] Encounter for follow-up examination after completed treatment for conditions other than malignant nePain in left leg Apr-0 4 Navdeep IVORY RVT, CAROLA Mike. [address] [facility], [address], [place], [place], [id number] , [place]. tel:[phone] Referring Provider: Debbi Marquez MD Jose, [address] [place] [address], [address]. tel:[phone] [facility], [address] [place] [address] Dr Valenzuela 1000Suite 1000Michael [place], [id number], [place] tel:[phone] CVR [facility] Varicose veins of left lower extremity with other complications Apr-0 4 Lucila Reese . [address] [place] [address], [place], [place], [id number] , [place]. [phone] Referring Provider: Debbi Marquez MD Jose, [address] [place] [address], [address]. tel:[phone] [facility], [address] [place] [address] Dr Valenzuela 1000Suite 1000Michael [place], [id number], [place] tel:[phone] CVR - [facility] Encounter for follow-up examination after completed treatment for conditions other than malignant nePain in right leg Apr-0 4 Navdeep IVORY RVT, CAROL[place] Mike. [address] [place] [address], [place], [place], [id number] , [place]. [phone] Referring Provider: Debbi Garcia, [address] [place] [address], [address]. tel:[phone] [facility], [address] [place] [address] Dr Valenzuela 1000Suite 1000Michael [place], [id number], [place] tel:[phone] CVR - [place] Chronic venous hypertension (idiopathic) with inflammation of right lower extremity May-2 4 Navdeep IVORY RVT, CAROLA Mike. [address] [facility], [facility] [address], [place], [place], [id number] , [place]. tel:[phone] Referring Provider: Debbi Garcia, [address] [place] [address], [address]. tel:[phone] Office/Outpt E&M Established 25 Mins Roberto [facility], [address] [place] [address] Dr Valenzuela 1000Suite 1000Michael [place], [id number], [place] tel:[phone] CVR - [place] Chronic venous hypertension (idiopathic) with other complications of bilateral lower extremityPain in left lower legPain in right legPain in left legRestless legs syndromeVenous insufficiency (chronic) (peripheral)Manager Philosophy mp and spasmLocalized edema May- 4 Navdeep IVORY RVT, CAROL[place] Mike. [address] [facility], [facility] [address], [place], [place], [id number] , [place]. [phone] Referring Provider: Debbi Garcia, [address] [place] [address], [address]. tel:[phone] [facility], [address] [place] [address] Dr Valenzuela 1000Suite 1000Michael [place], [id number], [place] tel:[phone] CVR - [facility] Chronic venous hypertension (idiopathic) with other complications of bilateral lower extremity May- 4 Navdeep IVORY RVT, RPVI Robert. [address] [facility], [address], [place], [place], [id number] , [place]. tel:[phone] Referring Provider: Debbi Garcia, [address] [place] [address] [place], [address]. tel:[phone] Office/Outpt E&M Established 15 Mins [facility], [address], [place] Michael, [id number], [place] tel:[phone] CV[place] - [place] Body mass index (BMI) 33.0-33.9, adultChronic venous htn w oth comp of bilateral low extrm 3 Jose IVORY FACS RVT RPVI Deangelo Nicole. [address] [facility], [address], [place], [address], [place]. tel:[phone] Referring Provider: Deangelo Garcia MD FACS RVT RPVI, [address] [facility] [address], [place], [address]. tel:[phone] Family History Family Member Type Diagnosis Age At Onset No Information Payers Payer name Insurance type Covered republican ID Authoriza tion(s) Medicare MARCO ANTONIO MEDINA [id number] [facility] [id number] Social History Type Description Quantity Date Captured [...]
--- OUTSIDE RECORDS SUMMARY | 2024-09-08 11:45 | XMS_ITS ---
Author Organization [facility] Address [address] [place] [address] Care Team Providers Care Pen And Pencil Repairer Name Role Phone Alma IVORY, Debbi Garcia Primary Care Provider Un available Ratna Chua Unavailable [phone] Allergies Allergen (clinical drug ingredient) Drug/Non Drug [...] Active Encounters Encounter Location Date Provider Diagnosis [facility] [address] [address] 09/08/2024 Ratna Chua Plan Of Treatment Next Appt Details Provider Name:Ratna Jessica boyd, 12/31/2024 09:15:00 AM, [address] [place], [address], Progress Notes * Leandra ESPINOZA ADOB: [birth year] (73 yo F)Acc No.[id number]:09/08/2024 Progress Note Patient: Leandra HURTADO Provider: Kvng Chua DPM :1950 A ge:73 Y S ex:Female Date:09/08/2024 Address:[address] [place], [place] [phone] Pcp:Wilberto Cook Subjective: * Chief Complaints: * [...] 0 09/08/2024 Generated for Yissel patel/Luca/Han on: 10/10/2024 08:12 AM EDT
--- OUTSIDE RECORDS SUMMARY | 2024-10-10 08:12 | XMS_ITS | Clinical Summary ---
Author Organization [facility] ity Address [address] [place] [address] Care Team Providers Care Automatic Lathe Setter Name Role Phone Unavailable Primary Care Provider [...] Vaccines (1 of 2) 2002 COVID-19 Vaccine (1 - 2023-2 5 season) 2023 Depression Screening 03/19/2024 Influenza Vaccine (#1) 2024 RSV Immunization Adult Patie nts (1 [...]
--- OUTSIDE RECORDS SUMMARY | 2024-10-10 08:12 | XMS_ITS | Patient Health Record ---
Author Organization [facility] Address [address] [place] [address] Care Team Providers Care Tower Erector Helper Name Role Phone Alma IVORY, Debbi Primary Care Provider Rashid Narayan Unavailable [phone] Allergies Allergen (clinical drug ingredient) Drug/Non Drug Allergy documented on EMR Reaction Allergy Type Onset Date Status buprenorphine Belbuca Unknown Drug Allergy Act radha Non-steroidal anti-inflammatory agent (FN) NSAIDS (uncoded) GI upset Allergy Active Reason For Referral No Information Medications Medication SIG (Take, Route, Frequency, Duration) Notes Start Date End Date Status hydroCHLOROthiazide 12.5 MG 1 capsule Or ally Once a day Active Vitamin D 1000 UNIT 1 tablet Orally Once a day Active Estradiol Active Elavil Active Benadryl Active traZODone HCl Active Lipitor Active Colace 100 MG 2 capsule as needed Orally Once a day Active Dulcolax 10 MG 1 suppository as needed Rectal Once a day Active PriLOSEC 20 MG 1 capsule Orally Onc e a day prn Active Semaglutide (2 MG/DOSE) 8 MG/3ML 2.5 mg per week Subcutaneous weekly 09/11/2024 Active Problems Problem Type SNOMED Code ICD Code Onset Dates Problem Status W/U Status Risk Notes Problem Colon cancer screening (728855315) Colon cancer screening (Z12.11) Active confirmed Problem 483292326 Abdominal bloating (R14.0) Active confirmed Problem Preprocedural examination (186565776400209) Preprocedural examination (Z01.818) Active confirmed Problem Irritable bowel syndrome characterized by constipation (387996027) Irritable bowel syndrome with constipation (K58.1) Active confirmed Problem 63404211 Abdominal gas pain (R14.1) Active confirmed Problem Long-term current use of drug therapy (360318243) High risk medications (not anticoagulants) long-term use (Z79.899) Active confirmed Vital Signs Blood pressure diastolic 77 mm Hg 09/11/2024 Height 62 in 09/11/2024 Blood pressure systolic 111 mm Hg 09/11/2024 Weight 140 lbs 09/11/2024 BMI 25.6 kg/m2 09/11/2024 Procedures Procedure Date Ordered Date Performed Result Body Sit e COLONOSCOPY 09/11/2024 N/A Encounters Encounter Location Date Provider Diagnosis [facility] [address] [place] [address] 09/11/2024 Rashid Wilson Colon cancer screeni ng Z12.11 ; Irritable bowel syndrome with constipation K58.1 ; Preprocedural examination Z01.818 and High risk medications (not anticoagulants) long-term use Z79.899 [facility] [address] [place] [address] 10/04/2024 Rashid Wilson Assessments Encounter Date Diagnosis (ICD Code) Assessment Notes Treatment Notes Treatment Clinical Notes Section Notes 09/11/2024 Colon cancer screening (ICD-10 - Z12.11) Overall, Leandra appears well and is not having any particularly new or worrisome GI complaints. I did recommend a follow-up colonoscopy for further screening given her last exam being over 10 years ago. We did review the rationale for that in regard to colon cancer prevention. Full consent has been obtained for this, including risks of bleeding and perforation. The procedure will be done with monitored anesthesia care. He was given the below instructions regarding adjustment of her medications for the procedure. Her irritable bowel syndrome seems to be stable. She has been on her bowel regimen for many years and at this point since she is doing well I am not inclined to change it. She will continue to use hyoscyamine as needed for abdominal cramping. We did review that obviously if she develops symptoms of her previous small bowel obstruction with distention, vomiting, and increasing pain, she should certainly go back to the ER rather than try the hyoscyamine. We did review that keeping her bowel movements as regular as possible is beneficial to the irritable bowel syndrome and and minimizing abdominal complaints. Leandra was comfortable with this plan. Thank you again for allowing me to participate in Leandra's care. I shall continue to keep you advised of her progress.. 09/11/2024 Irritable bowel syndrome with constipation (ICD-10 - K58.1) Overall, Leandra appears well and is not having any particularly new or worrisome GI complaints. I did recommend a follow-up colonoscopy for further screening given her last exam being over 10 years ago. We did review the rationale for that in regard to colon cancer prevention. Full consent has been obtained for this, including risks of bleeding and perforation. The procedure will be done with monitored anesthesia care. He was given the below instructions regarding adjustment of her medications for the procedure. Her irritable bowel syndrome seems to be stable. She has been on her bowel regimen for many years and at this point since she is doing well I am not inclined to change it. She will continue to use hyoscyamine as needed for abdominal cramping. We did review that obviously if she develops symptoms of her previous small bowel obstruction with distention, vomiting, and increasing pain, she should certainly go back to the ER rather than try the hyoscyamine. We did review that keeping her bowel movements as regular as possible is beneficial to the irritable bowel syndrome and and minimizing abdominal complaints. Leandra was comfortable with this plan. Thank you again for allowing me to participate in Leandra's care. I shall continue to keep you advised of her progress.. 09/11/2024 Preprocedural examination (ICD-10 - Z01.818) Overall, Leandra appears well and is not having any particularly new or worrisome GI complaints. I did recommend a follow-up colonoscopy for further screening given her last exam being over 10 years ago. We did review the rationale for that in regard to colon cancer prevention. Full consent has been obtained for this, including risks of bleeding and perforation. The procedure will be done with monitored anesthesia care. He was given the below instructions regarding adjustment of her medications for the procedure. Her irritable bowel syndrome seems to be stable. She has been on her bowel regimen for many years and at this point since she is doing well I am not inclined to change it. She will continue to use hyoscyamine as needed for abdominal cramping. We did review that obviously if she develops symptoms of her previous small bowel obstruction with distention, vomiting, and increasing pain, she should certainly go back to the ER rather than try the hyoscyamine. We did review that keeping her bowel movements as regular as possible is beneficial to the irritable bowel syndrome and and minimizing abdominal complaints. Leandra was comfortable with this plan. Thank you again for allowing me to participate in Leandra's care. I shall continue to keep you advised of her progress.. 09/11/2024 High risk medications (not anticoagulants) long-term use (ICD-10 - Z79.899) Overall, Leandra appears well and is not having any particularly new or worrisome GI complaints. I did recommend a follow-up colonoscopy for further screening given her last exam being over 10 years ago. We did review the rationale for that in regard to colon cancer prevention. Full consent has been obtained for this, including risks of bleeding and perforation. The procedure will be done with monitored anesthesia care. He was given the below instructions regarding adjustment of her medications for the procedure. Her irritable bowel syndrome seems to be stable. She has been on her bowel regimen for many years and at this point since she is doing well I am not inclined to change it. She will continue to use hyoscyamine as needed for abdominal cramping. We did review that obviously if she develops symptoms of her previous small bowel obstruction with distention, vomiting, and increasing pain, she should certainly go back to the ER rather than try the hyoscyamine. We did review that keeping her bowel movements as regular as possible is beneficial to the irritable bowel syndrome and and minimizing abdominal complaints. Leandra was comfortable with this plan. Thank you again for allowing me to participate in Leandra's care. I shall continue to keep you advised of her progress.. Plan Of Treatment Pending Test Test Name Order Date COLONOSCOPY 09/11/2024 CELIAC PANEL #10 09/17/2017 Future Test Test Name Order Date COLONOSCOPY 11/04/2013 Next Appt Details Provider Name:Rashid Ladd Steve , 12/15/2024 07:30:00 AM, [address] [facility] , [place], [place], [id number], Insurance Providers Payer Name Payer Address Payer Phone Subscriber Number Group Number Insured Name Patient Relationship to Insured Coverage Start Date Coverage End Date MEDICARE OF [place] [address] [place], [place] [id number] [phone] [id number] LEANDRA ESPINOZA Self - patient is the insured 8 [employer] ([place] [address] [place] [address] [id number] LEANDRA ESPINOZA Self - patient is the insured Medical (General) History Medical History History ICD Code 06/07/2004 Colonoscopy w/small internal hemorrhoids Uses Hctz for edema due to the Lyrica IBS--uses Hyoscyamine prn wi th relief--constipation, but stable on her bowel regimen Hyperlipidemia Shingles Denies OR,DM,CVA,Lung disease,renal dise ase Back pain with disc disease- -use Vicodin QID-has a neuropain stimulator in place Negative colonoscopy in 10/2013 Lymphedema of lower extremities Hospitalization in 2021 and 2022 for small bowel obstructions due to presumed adhesions. These were treated with nasogastric tube decompression and did not require surgery. She has been followed by Dr. Escobar for this. Surgical History Surgery Date(Month/Year) Right knee replacement Thumb bilaterally Abdominoplasty Marsupialization for Bartholin's glands cysts and infections Lap band insertion--Dr. Tierney-lost 30 _# Appendectomy 09/01/2013 Right knee arthroscopy 2002 Shoulder surgery-right Cholecystectomy 1988 Laminectomy 2003 Bunionectomy 2009 Cystocele repair 2009 Hysterectomy 2009 Tonsillectomy 1971
--- OUTSIDE RECORDS SUMMARY | 2024-10-10 08:13 | XMS_ITS | Data Portability ---
Author Organization [facility], [facility] Address [address] [place] [address] Care Team Providers Care Customer Experience Specialist Name Role Phone LINDASUSAN JEREMY Primary Care Provider Assessment Encounter Date Assessment Date Assessment LastModified [...] Organization Details Recorded Time No complaint s 567659750 Active Status: 'I'; Not Available [facility] 4 09:25:07 Idiopathi c osteoarth ritis 360521113 Active 2019 Problem Code: M17.0; Problem Code Type: ICD-10; Status: 'A'; Not Available [facility] 4 11:57:27 Bilateral shoulder osteoarth ritis 248973239120 108 Active 2023 Dede Felix PA-C [address] [facility] [address], [place], [address] , [facility] 4 09:08:04 Osteoarth ritis of joint of left shoulder region 892906220320 108 Active [address], [place], [address] , [facility] 4 16:55:44 Pain of left shoulder joint 753762517137 13518 Active 2023 Dede Felix PA-C [address], [place], [address] , [facility] 4 12:33:30 Problem Notes None recorded. Procedures Surgical History Date Name Laterality Status Provider Name and Address Organization Details Recorded Time 5 JZShoulder INJ completed Adan Vang PA-C [address], [place], [address], [facility] 07/03/2024 08:30:10 5 Sports Shoulder completed Dede Park PA-C [address], [place], [address], [facility] 03/20/2024 12:33:07 4 Sports Shoulder completed Dede Felix PA-C [address], [place], [address], [facility] 12/03/2023 12:32:04 4 Sports Shoulder completed Dede Felix PA-C [address], [place], [address], [facility] 08/30/2023 16:55:10 4 Shoulder Kenalog 2cc Injection, Bilateral completed Dede Felix PA-C [address], [place], [address], [facility] 06/01/2023 09:07:52 Imaging Results None recorded. Procedure Notes None recorded. Medical Equipment None Reported. Allergies Allergen ID Allergen Name Allergen Category Reaction Reaction Severity Criticality Documentation Date Start Date Code Code System Note Provider Name and Address Organization Details Recorded Time 56852 Non-stero idal anti-infl ammatory agent (product) medicatio n Not available Not available Not available 05/21/20232012 96246 005 SNOMED Not Available [facility] 4 12:44:51 Medications Name Sig Start Date [...] Updated DateTime 03/21/2024 157.48 cm 32.6 kg/m2 08180.44 g RUTHIE NEWELL [facility] 03/21/2024 08:26:33 Date Recorded Body height Body mass index (BMI) Body weight Provider Name and Address Organization Details Last Updated DateTime 06/01/2023 157.48 cm 32.6 kg/m2 28518.44 g Sri John [facility] 06/01/2023 08:55:44 Date Recorded Body height Body mass index (BMI) Body weight Provider Name and Address Organization Details Last Updated DateTime 07/03/2024 157.48 cm 32.6 kg/m2 60868.44 g Jonny Gamino [facility] 07/03/2024 08:28:21 Date Recorded Body height Body mass index (BMI) Body weight Provider Name and Address Organization Details Last Updated DateTime 08/30/2023 157.48 cm 32.6 kg/m2 46336.44 g CHRISTY Angela [facility] 08/30/2023 08:53:29 Date Recorded Body height Body mass index (BMI) Body weight Provider Name and Address Organization Details Last Updated DateTime 12/03/2023 157.48 cm 32.6 kg/m2 78151.44 g CHRISTY Angela [facility] 12/03/2023 13:39:54 Social History Question Answer Notes LastModified by Organizat ion Details LastModified Time Tobacco Smoking Status Former Smoker CHRISTY shine [place] - [facility] 08/30/2023 08:54:11 When Did You Quit Smoking? 16+yearssinc elastcigaret te Information not available 08/30/2023 Which Of Your Hands Is Dominant? Right Information not available 08/30/2023 Sex: Unknown Functional Status Question Answer Note LastModified by Organizat ion Details LastModified Time Do you use any illicit or recreational drugs? No Information not available 08/30/2023 Do you or have you ever used any other forms of tobacco or nicotine? No Information not available 08/30/2023 What is your level of alcohol consumption? None [email or web address] Information not available 08/30/2023 Mental Status None recorded. Family History Nothing Reported. Medical History Condition Response Gastrointestinal Disease Y Arthritis Y Cholesterol Y Gynecological HistoryNo gynecological history recorded. Obstetrics History GPAL:G 0 P 0 0 0 0 Past Encounters Encounter ID Performer Location Encounter Start Date Encounter Closed Date Diagnosis/Indication Diagnosis SNOMED-CT Code Diagnosis ICD10 Code Diagnosis Note [id number] ILIANA White [address] [place] [place] [address] 06/01/2023 08:34:49 06/01/2023 09:16:45 Bilateral shoulder osteoarthritis 1930368537 04701 M19.011 M19.184 [id number] ILIANA White [address] [place] [address] 08/30/2023 08:36:22 09/19/2023 13:31:49 Osteoarthritis of joint of left shoulder region 8536030387 23634 M19.187 [id number] ILIANA White [address] [place] [address] 12/03/2023 13:34:06 12/13/2023 09:36:44 Pain of left shoulder joint 8557273479 7845250 M25.889 [id number] ILIANA Pfeiffer [address] [place] [address] 03/21/2024 08:16:46 04/07/2024 10:04:41 Pain of left shoulder joint 0129376790 6171093 M25.312 [id number] Adan Vang PA-C [facility] [address] [place] , [place] [address] 07/03/2024 08:10:29 07/21/2024 15:31:22 Pain of left shoulder joint 0173282700 1732194 M25.512 Health Concerns Section Related Observation LastModified by Organization Detai ls LastModified Time None Recorded Concern Status LastModified by Organization Details LastModified Time None Recorded Advance Directives Directive None Recorded Payers Insurance Date Sequence Insurance Name Policy Number Policy Van Covered Member ID Van Member ID Guarantor Name 10/09/2024 1 [place] [employer] Leadnra Julio César Leonor [id number] Leandra Galvez 10/09/2024 2 [facility] PLAN F (MEDICARE SUPPLEMENT) [id number] Leandra Lopezlsia [id number] Leandra Julio César Leonor Notes Date Note Type Note Provider Name [...] x-rays of the right shoulder reviewed at [facility] today. AP view demonstrates mild glenohumeral [...] include infection and tendon rupture. Speech recognition truck repair service estimator software was used to create portions of this document. An attempt at proofreading has been made to minimize errors. Please call for corrections. Dede Felix PA-C [address], [place], [address], [facility] - [facility] 06/01/2023 13:22:14 08/30/2023 text/html I am seeing [...] 4 view x-rays right shoulder reviewed at [facility] today. AP view demonstrates mild glenohumeral [...] and agrees with the plan. Speech recognition truck repair service estimator software was used to create portions of this document. An attempt at proofreading has been made to minimize errors. Please call for corrections. Dede Felix PA-C [address] [place] [address] [address], [place], [address], [facility] - [facility] 08/30/2023 16:56:13 12/03/2023 text/html [...] X-RAYS:Previous 4v x-rays right shoulder reviewed at [facility] today. AP view demonstrates mild glenohumeral [...] and agrees with the plan. Speech recognition truck repair service estimator software was used to create portions of this document. An attempt at proofreading has been made to minimize errors. Please call for corrections. Dede Felix PA-C [address] [place] [address] [address] [facility], [place], [address], [facility] - [facility] 12/03/2023 13:56:44 03/21/2024 text/html [...] and agrees with the plan. Speech recognition truck repair service estimator software was used to create portions of this document. An attempt at proofreading has been made to minimize errors. Please call for corrections. Dede Park PA-C [address] [facility] [address], [place], [address], [facility] - [facility] 03/21/2024 09:13:42 OBGyn Episode No OBEpisode recorded.
--- NOTE | 2024-10-10 08:40 | A.OFFVIS_ITS ---
Vital Signs 10/10/24 08:41 Weight 138 lb BP 117/67 Blood Pressure Location Lt brachial Position Sitting Respiration 18 Pulse 89 Pulse Source Pulse Oximeter Pulse Oximetry (%) 98 Oxygen Delivery Method Room Air Intake Visit Reasons: Pill count/ random UDS Intake Note: pt states she last took her oxycondonel at 5pm 10/09. MassPAT says she should have 10 she presented with 8 Allergies buprenorphine (Belbuca) Allergy (Unknown, Verified 10/10/24 08:42) stomach upset NSAIDS (Non-Steroidal Anti-Inflamma Allergy (Unknown, Verified 10/10/24 08:42) Stomach Upset HPI Comments Details: Leandra presents back to the office today for follow up chronic pain and chronic opioid therapy management. Patient is prescribed oxycodone 5 mg tablets, take 2 tablets daily as needed. Patient arrived today with the expectation of having 10 pills, she presented 8 pills which were counted in the presence of two staff members and returned to the patient in the original prescription bottle. Pain is reported today as 6/10 and last dose of pain medication was taken yesterday at 5pm. Denies side effects including somnolence, constipation, itching, dyspnea, rash, dizziness, urinary retention or weakness. Patient 2 pill discrepancy today, she states that she has been working a lot in her yard and could have taken an extra pill as it exacerbated her pain. She has PHQ score is equal to 1, Her opioid addiction risk score is equal to 2 Total score is equal to 3 she is low risk for opioid addiction. [facility] Medical History Osteoarthritis History of osteopenia Obesity (BMI 30.0-34.9) Prolapse of anterior vaginal wall Essential hypertension Dyslipidemia Irritable bowel syndrome Chronic pain syndrome Bilateral primary osteoarthritis of knee Spondylosis without myelopathy or radiculopathy, lumbar region Surgical History History of tonsillectomy History of hysterectomy History of carpal tunnel surgery History of cholecystectomy History of laparoscopic appendectomy History of lumbar laminectomy History of reduction mammoplasty H/O abdominoplasty Hx of bariatric surgery Family History Mother Diabetes mellitus Essential hypertension Cardiovascular disease Daughter Wernicke-Korsakoff syndrome (alcoholic) Social History Household Members: None Household Members Other:: 0 Housing: House Do you presently have visiting nurse or other home services: No Alcohol intake: never Patient Tobacco Use Status: Former Tobacco user e-Cigarette/Vaping Use: Never Used Advance Directives Date on File: 12/22/21 service: No Current occupational status: retired Cognitive needs: No Hearing needs: No Vision needs: No Review of Systems Const All systems reviewed & are unremarkable except as noted in HPI and below Physical Exam Vital Signs: Last Vital Signs Pulse 89 10/10/24 08:41 Resp 18 10/10/24 08:41 BP 117/67 10/10/24 08:41 Pulse Ox 98 10/10/24 08:41 Oxygen Delivery Method Room Air 10/10/24 08:41 General: awake, alert, oriented. Answers questions appropriately. Fully engaged in examination. Skin: warm, dry, intact without visible rashes or lesions. HEENT: Normocephalic. Cardiac: External chest normal in appearance. Respiratory: Cough without audible wheezing or stridor. Abdomen: without gross distension. MS: No obvious swelling or deformities. Able to transition from sit to stand unassisted. Ambulates with antalgic gait Neurological: Oriented to person, place, time and situation. Thought process intact. Psychiatric: Appropriate mood and affect. Good judgment and insight. Results Reviewed Results Reviewed: 02/29/24 EMG IMPRESSION: 1. This is a normal study. 2. There is no electrodiagnostic evidence for peroneal neuropathy, tibial neuropathy, lumbosacral plexopathy, lumbar radiculopathy, or peripheral neuropathy. 11/2023 x-ray lumbar spine Independently reviewed: Worsening degenerative disc disease. Official radiologist's reading pending. CT/CT abdomen pelvis w IV 10/26/22 OSSEOUS STRUCTURES: No acute or suspicious osseous abnormality. Degenerative changes throughout the spine. MR LUMBAR SPINE WITHOUT CONTRAST 02/12/24 CLINICAL INFORMATION: Lumbar spondylosis COMPARISON: None available. TECHNIQUE: MRI of the lumbar spine was obtained using routine sequences without contrast. FINDINGS: There are 5 nonrib-bearing lumbar-type vertebrae. Mild dextrocurvature of the lumbar spine. Preservation of the normal lumbar lordosis. Grade 1 anterolisthesis at L3-4 and mild retrolisthesis at L1-2 and L4-5. Diffusely heterogeneous bone marrow signal is degenerative. Subacute endplate changes at L4-5. The vertebral body heights are preserved. Multilevel disc desiccation with severe disc height loss at L4-5. Multilevel endplate osteophytosis. The visualized spinal cord is normal in caliber. No abnormal cord signal. The conus medullaris terminates at L1-2. T12-L1: No significant spinal canal or neural foraminal narrowing. L1-2: Shallow disc bulge and bilateral facet arthrosis. No significant spinal canal or neural foraminal narrowing. L2-3: Shallow disc bulge and bilateral facet arthrosis. No significant spinal canal or neural foraminal narrowing. L3-4: Shallow disc bulge and bilateral facet arthrosis. No significant spinal canal or neural foraminal narrowing. L4-5: Diffuse disc bulge and bilateral facet arthrosis. Moderate left neural neural foraminal narrowing with mass effect on the left exiting L4 nerve roots. The disc also abuts the exiting nerve roots on the right. L5-S1: Diffuse disc bulge with superimposed annular fissure. Bilateral facet arthrosis. Mild to moderate right neural foraminal narrowing with mass effect on the right exiting L5 nerve roots. The paravertebral soft tissues are unremarkable. IMPRESSION: Multilevel lumbar spondylosis as described above without significant spinal canal narrowing. Neural foraminal narrowing is worst and moderate on the left at L4-5 with mass effect on the left exiting L4 nerve roots. There is also mild to moderate right neural foraminal narrowing at L5-S1 with mass effect on the right exiting L5 nerve roots. Assessment & Plan Assessment & Plan (1) Peripheral neuropathy: Code(s): G62.9 - Polyneuropathy, unspecified Category: Medical (2) Spondylosis without myelopathy or radiculopathy, lumbar region: Code(s): M47.816 - Spondylosis without myelopathy or radiculopathy, lumbar region Category: Medical (3) Bilateral primary osteoarthritis of knee: Code(s): M17.0 - Bilateral primary osteoarthritis of knee Category: Medical (4) Chronic pain syndrome: Code(s): G89.4 - Chronic pain syndrome Category: Medical (5) Disc degeneration, lumbar: Code(s): M51.36 - Other intervertebral disc degeneration, lumbar region Category: Medical (6) Trochanteric bursitis, left hip: Code(s): M70.62 - Trochanteric bursitis, left hip Category: Medical [facility] Contract rules and regulations reviewed with patient. Today her pill discrepancy was not enough for suspension from the program but she was reminded to take her medications only as prescribed. She verbalizes understanding. Random UDS collected today. Prescription for oxycodone 5 mg p.o. twice daily as needed sent to the pharmacy. Continue with amitriptyline 50 mg p.o. q.h.s. All questions and concerns have been answered, patient agrees with the plan. Follow up in 1 month, sooner if needed. Medications: Refilled oxycodone Partial Fill upon patient request. 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
[2024-10-10 08:41] VITALS: BP 117/67; PULSE 89; RESP 18; O2SAT 98
== END 2024-10-10 08:56 | disposition home or self-care (01) ==
LOC: HO.PMC 08:08
PROVIDERS: PCP Internal Medicine; Visit Provider Registered Nurse Emergency
DX: G62.9 Polyneuropathy, unspecified (principal); M47.816 Spondylosis without myelopathy or radiculopathy, lumbar region; M17.0 Bilateral primary osteoarthritis of knee; G89.4 Chronic pain syndrome; M51.369 Other intervertebral disc degeneration, lumbar region without mention of lumbar back pain or lower extremity pain; M70.62 Trochanteric bursitis, left hip
CPT/HCPCS: 99213; G2211

== ENCOUNTER → 2024-10-10 08:07 | Outpatient (BNVA) | payer MEDICARE, OTHER, SELFPAY | PROVIDERS: PCP Internal Medicine; Visit Provider Registered Nurse Emergency | DX: Z51.81 Encounter for therapeutic drug level monitoring (principal); G89.4 Chronic pain syndrome; Z79.891 Long term (current) use of opiate analgesic | CPT/HCPCS: 99212 ==

== ENCOUNTER 2024-11-12 08:25 | Outpatient (AMB) | payer MEDICARE, OTHER, SELFPAY ==
--- OUTSIDE RECORDS SUMMARY | 2023-08-10 08:23 | XMS_ITS | Continuity of Care Document ---
Author Organization [facility] Address [address] [place] [address] Phone Care Team Providers Care Legislative Analyst Name Role Phone Navdeep IVORY, RVT, RPVI, [...] Diagnoses Date Provider Providers Copied on Encounter [place] [facility] MD WETZEL, [address] [place] [address] Dr Valenzuela 1000[address] 1000Michael [place], [id number], tel:[phone] CVR - [place] No Information 4 Navdeep IVORY RVT, CAROLA Mike. [address] [address], [facility] [place], [id number] , [place]. tel:[phone] Office/Outpt E&M Established 15 Mins- CT & [place] [facility] MD WETZEL, [address] [place] [address] Dr Valenzuela 1000SuMichael toure [place], [id number], [place] tel:[phone] [facility] - [place] Lymphedema, not elsewhere classifiedCramp and spasmRestless legs syndrome 4 Navdeep IVORY RVT, CAROLA Mike. [address] [address], [place], [place], [id number] , [place]. tel:[phone] Referring Provider: Debbi Garcia, [address] [place] [address], [address]. tel:[phone] [facility] MD WETZEL, [address] [place] [address] Dr Valenzuela [address]Suite [place] Sanchez [place], [id number], [place] tel:[phone] CVR - [facility] Chronic venous hypertension (idiopathic) with other complications of bilateral lower extremity 4 Navdeep IVORY RVT, CAROLA Mike. [address] [facility] [address], [address], [facility] [place], [id number] , [place]. tel:[phone] Referring Provider: Debbi Garcia, [address] [facility] [address] [place], [address]. tel:[phone] [facility], [address] [place] [address] Dr Valenzuela 1000Suite 1000Michael [place], [id number], [place] tel:[phone] CVR - [facility] Encounter for follow-up examination after completed treatment for conditions other than malignant nePain in left leg Apr-0 4 Navdeep IVORY RVT, CAROLA Mike. [address] [facility] [address], [address], [place], [place], [id number] , [place]. [phone] Referring Provider: Debbi Marquez MD Jose, [address] [place] [address], [address]. 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 [address] [address], [place], [place], [id number] , [place]. [phone] Referring Provider: Debbi Marquez MD Jose, [address] [place] [address], [address]. tel:[phone] [facility], [address] [place] [address] Dr Valenzuela 1000Suite 1000Michael [place], [id number], [place] tel:[phone] CVR - [facility] Encounter for follow-up examination after completed treatment for conditions other than malignant nePain in right leg Apr-0 4 Navdeep IVORY RVT, CAR[place] Mike. [address] [address], [place], [place], [id number] , [place]. [phone] Referring Provider: Debbi Garcia, [address] [place] [address], [address]. tel:[phone] [facility], [address] [place] [address] Dr Valenzuela 1000Suite 1000Michael [place], [id number], [place] tel:[phone] CVR - [place] [facility] [place] Chronic venous hypertension (idiopathic) with inflammation of right lower extremity May-2 4 Navdeep IVORY RVT, CAROLA Mike. [address], [facility] [address], [place], [place], [id number] , [place]. tel:[phone] Referring Provider: Debbi Garcia, [address] [place] [address], [address]. tel:[phone] Office/Outpt E&M Established 25 Mins [facility], [address] [place] [address] Dr Valenzuela 1000Suite 1000Michael [place], [id number], [place] tel:[phone] CVR - [place] [facility] [place] Chronic venous hypertension (idiopathic) with other complications of bilateral lower extremityPain in left lower legPain in right legPain in left legRestless legs syndromeVenous insufficiency (chronic) (peripheral)Assurance Specialist mp and spasmLocalized edema May- 4 Navdeep IVORY RVT, CAROLA Mike. [address] [facility], [facility] [address], [place], [place], [id number] , [place]. [phone] Referring Provider: Debbi Garcia, [address] [place] [address], [address]. tel:[phone] [facility], [address] [place] [address] Dr Valenzuela 1000Suite 1000Michael [place], [id number], [place] tel:[phone] CVR - [facility] Chronic venous hypertension (idiopathic) with other complications of bilateral lower extremity May- 4 Navdeep IVORY RVT, RPVI Robert. [address] [facility], [address], [place], [place], [id number] , [place]. tel:[phone] Referring Provider: Debbi Garcia, [address] [place] [address] [place], [address]. tel:[phone] Office/Outpt E&M Established 15 Mins [facility], [address], [place], [id number], [place] tel:[phone] CVR - [place] [facility] [place] Body mass index (BMI) 33.0-33.9, adultChronic venous htn w oth comp of bilateral low extrm 3 Jose IVORY FACS RVT RPVI Deangelo Nicole. [address] [facility], [address], [place], [address], [place]. tel:[phone] Referring Provider: Deangelo Garcia MD FACS RVT RPVI, [address], [place], [address]. tel:[phone] Family History Family Member Type Diagnosis Age At Onset No Information Payers Payer name Insurance type Covered alliance party ID Authoriza tion(s) Medicare MARCO ANTONIO MEDINA [id number] [facility] [id number] Social History Type Description Quantity Date Captured [...] given Related to Lymphedema, not elsewhere classified Giving Encouragement to exercise Related to Body mass index (BMI) 33.0-33.9, adult Patient education booklet given Related to Chronic venous hypertension (idiopathic) with other complications of bilateral lower extremity Pre and post instruc tions reviewed and provided Related to Chronic venous hypertension (idiopathic) with other complications of bilateral lower extremity Diet education Related to Body mass index [...]
--- OUTSIDE RECORDS SUMMARY | 2024-07-24 05:00 | XMS_ITS ---
Author Organization [facility] Address [address] [place] [address] Care Team Providers Care Electric Operator Name Role Phone Alma IVORY, Debbi Garcia Primary Care Provider Un available Ratna Chua Unavailable [phone] Encounters Encounter Location Date Provider Diagnosis [facility] [address] [place] [address] 07/24/2024 Ratna Chua Plan Of Treatment Next Appt Details Provider Name:Ratna Lopez ker, 12/31/2024 09:15:00 AM, [address] [place], [address], Progress Notes * OLGA Leandra ADOB: [birth year] (74 yo F)Acc No.[id number]:07/24/2024 Progress Note Patient: Leandra HURTADO Provider: Kvng Chua DPM :1950 A ge:73 Y S ex:Female Date:07/24/2024 Address:[address] [place] [address] Pcp:Wilberto Cook Subjective: * Chief Complaints: * [...] 0 07/24/2024 Generated for Yissel patel/Luca/Han on: 0 11/12/2024 08:48 AM EDT
--- OUTSIDE RECORDS SUMMARY | 2024-09-08 11:45 | XMS_ITS ---
Author Organization [facility] Address [address] [place] [address] Care Team Providers Care Public Service Administrator Name Role Phone Alma IVORY, Debbi Garcia Primary Care Provider Un available Ratna Chua Unavailable [phone] Allergies Allergen (clinical drug ingredient) Drug/Non Drug [...] Active Encounters Encounter Location Date Provider Diagnosis [facility] [address] [address] 09/08/2024 Ratna Chua Plan Of Treatment Next Appt Details Provider Name:Ratna Jessica boyd, 12/31/2024 09:15:00 AM, [address] [place], [address], Progress Notes * Leandra ESPINOZA ADOB: [birth year] (74 yo F)Acc No.[id number]:09/08/2024 Progress Note Patient: Leandra HURTADO Provider: Kvng Chua DPM :1950 A ge:73 Y S ex:Female Date:09/08/2024 Address:[address] [place], [place] [id number] Pcp:Wilberto Cook Subjective: * Chief Complaints: * [...] 0 09/08/2024 Generated for Yissel patel/Luca/Han on: 0 11/12/2024 08:47 AM EDT
--- NOTE | 2024-11-12 08:30 | MHC.OFFVIS ---
Vital Signs 11/12/24 08:32 Weight 138 lb BP 124/89 Blood Pressure Location Lt brachial Position Sitting Respiration 18 Pulse 92 Pulse Oximetry (%) 99 Oxygen Delivery Method Room Air Intake Visit Reasons: PILL COUNT Intake Note: pt states she last took her pill at 3pm 8.26.25 MassPAT says she should have two she presented with 10 pills. Allergies buprenorphine (Belbuca) Allergy (Unknown, Verified 10/10/24 08:42) stomach upset NSAIDS (Non-Steroidal Anti-Inflamma Allergy (Unknown, Verified 10/10/24 08:42) Stomach Upset HPI Comments Details: Leandra presents back to the office today for follow up chronic pain and chronic opioid therapy management. She reports severe constipation. She reports that she takes Dulcolax every day and it is not help every time she takes it. She reports yet she tried multiple fiber formulation and she tried diet modification to help her constipation and yet nothing helps. This is opioid induced constipation and I will prescribe for her Movantik to help her constipation. I also recommended her to start doing physical therapy for her lower back pain. I will send her to physical therapy. We discussed today sprint PNS, in the distant past we did medial branch blocks for the patient which did not result in significant pain improvement. Her pain is mostly axial and is being aggravated by flexing backwards. On the MRI dictated as below widespread spondylosis is demonstrated in the patient's lumbar spine. I offered the patient to perform again diagnostic medial branch blocks in the order to prepare her for sprint PNS. I also gave her sprint PNS brochure to read. She is prescribed oxycodone 5 mg t.i.d.. She presented today with 10 pills in her possession. She supposed to have 2 pills in her possession. Therefore her pill count is correct. Denies side effects including somnolence,itching, dyspnea, rash, dizziness, urinary retention or weakness. She has PHQ score is equal to 1, Her opioid addiction risk score is equal to 2 Total score is equal to 3 she is low risk for opioid addiction. [facility] Medical History Osteoarthritis History of osteopenia Obesity (BMI 30.0-34.9) Prolapse of anterior vaginal wall Essential hypertension Dyslipidemia Irritable bowel syndrome Chronic pain syndrome Bilateral primary osteoarthritis of knee Spondylosis without myelopathy or radiculopathy, lumbar region Surgical History History of tonsillectomy History of hysterectomy History of carpal tunnel surgery History of cholecystectomy History of laparoscopic appendectomy History of lumbar laminectomy History of reduction mammoplasty H/O abdominoplasty Hx of bariatric surgery Family History Mother Diabetes mellitus Essential hypertension Cardiovascular disease Daughter Wernicke-Korsakoff syndrome (alcoholic) Social History Household Members: None Household Members Other:: 0 Housing: House Do you presently have visiting nurse or other home services: No Alcohol intake: never Patient Tobacco Use Status: Former Tobacco user e-Cigarette/Vaping Use: Never Used Advance Directives Date on File: 12/22/21 service: No Current occupational status: retired Cognitive needs: No Hearing needs: No Vision needs: No Review of Systems Const All systems reviewed & are unremarkable except as noted in HPI and below Physical Exam Vital Signs: Last Vital Signs Pulse 92 11/12/24 08:32 Resp 18 11/12/24 08:32 BP 124/89 11/12/24 08:32 Pulse Ox 99 11/12/24 08:32 Oxygen Delivery Method Room Air 11/12/24 08:32 Const General: cooperative, comfortable and well developed Eyes General: appearance normal, both eyes and all related structures EOM: EOMs intact bilaterally Resp Effort & Inspection: normal respiratory effort, able to speak in complete sentences, normal respiratory pattern, no audible wheezes and no cough Cardio Jugular venous distension: no JVD Back/Spine/Pelvis Other: She is able to walk on her tip toes as well as on her heels. She denies radiation of the pain from lower back to the extremities. She denies Valsalva maneuver positive for pain increase. She is able to flex forward and flex backward admits severe pain with flexing backward the majority of the pain is located in the projection of sacral bone on palpation. There is no radiation on palpation. She denies bowel and bladder dysfunction. Bending forward and bending backwards are not very comfortable but bending backwards aggravates her pain more. Nigel test is negative for sacroiliac joint pathology. Palpation of the sacroiliac joint projection to the skin is also negative.. Results Reviewed Results Reviewed: 02/29/24 EMG IMPRESSION: 1. This is a normal study. 2. There is no electrodiagnostic evidence for peroneal neuropathy, tibial neuropathy, lumbosacral plexopathy, lumbar radiculopathy, or peripheral neuropathy. 11/2023 x-ray lumbar spine Independently reviewed: Worsening degenerative disc disease. Official radiologist's reading pending. CT/CT abdomen pelvis w IV 10/26/22 OSSEOUS STRUCTURES: No acute or suspicious osseous abnormality. Degenerative changes throughout the spine. MR LUMBAR SPINE WITHOUT CONTRAST 02/12/24 CLINICAL INFORMATION: Lumbar spondylosis COMPARISON: None available. TECHNIQUE: MRI of the lumbar spine was obtained using routine sequences without contrast. FINDINGS: There are 5 nonrib-bearing lumbar-type vertebrae. Mild dextrocurvature of the lumbar spine. Preservation of the normal lumbar lordosis. Grade 1 anterolisthesis at L3-4 and mild retrolisthesis at L1-2 and L4-5. Diffusely heterogeneous bone marrow signal is degenerative. Subacute endplate changes at L4-5. The vertebral body heights are preserved. Multilevel disc desiccation with severe disc height loss at L4-5. Multilevel endplate osteophytosis. The visualized spinal cord is normal in caliber. No abnormal cord signal. The conus medullaris terminates at L1-2. T12-L1: No significant spinal canal or neural foraminal narrowing. L1-2: Shallow disc bulge and bilateral facet arthrosis. No significant spinal canal or neural foraminal narrowing. L2-3: Shallow disc bulge and bilateral facet arthrosis. No significant spinal canal or neural foraminal narrowing. L3-4: Shallow disc bulge and bilateral facet arthrosis. No significant spinal canal or neural foraminal narrowing. L4-5: Diffuse disc bulge and bilateral facet arthrosis. Moderate left neural neural foraminal narrowing with mass effect on the left exiting L4 nerve roots. The disc also abuts the exiting nerve roots on the right. L5-S1: Diffuse disc bulge with superimposed annular fissure. Bilateral facet arthrosis. Mild to moderate right neural foraminal narrowing with mass effect on the right exiting L5 nerve roots. The paravertebral soft tissues are unremarkable. IMPRESSION: Multilevel lumbar spondylosis as described above without significant spinal canal narrowing. Neural foraminal narrowing is worst and moderate on the left at L4-5 with mass effect on the left exiting L4 nerve roots. There is also mild to moderate right neural foraminal narrowing at L5-S1 with mass effect on the right exiting L5 nerve roots. Assessment & Plan Assessment & Plan (1) Peripheral neuropathy: Code(s): G62.9 - Polyneuropathy, unspecified Category: Medical (2) Spondylosis without myelopathy or radiculopathy, lumbar region: Code(s): M47.816 - Spondylosis without myelopathy or radiculopathy, lumbar region Category: Medical (3) Bilateral primary osteoarthritis of knee: Code(s): M17.0 - Bilateral primary osteoarthritis of knee Category: Medical (4) Chronic pain syndrome: Code(s): G89.4 - Chronic pain syndrome Category: Medical (5) Disc degeneration, lumbar: Code(s): M51.36 - Other intervertebral disc degeneration, lumbar region Category: Medical (6) Trochanteric bursitis, left hip: Code(s): M70.62 - Trochanteric bursitis, left hip Category: Medical Plan Lidya was reviewed and without concerns. Her pill count is correct today I will prescribe her oxycodone 5 mg t.i.d. due on 11/14/2024. I will send her for physical therapy for the lower back pain. I will start her on Movantik see discussion above. I gave her brochure about sprint PNS, if she is interested I will perform medial branch block for this patient. Next appointment will be scheduled in 1 month for the pill count. She will continue amitriptyline please up to her to improve her sleep. Orders: Orders PT Evaluation and Treatment Today M47.816 - Spondylosis without myelopathy or radiculopathy, lumbar region Medications: New naloxegol (Movantik) must be taken on empty stomach; no food 1 hr after or 2-3 hrs before dose 12.5 mg PO QAM 30 tabs 8RF 30 days Refilled oxycodone Partial Fill upon patient request. 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 Coding Level of Care Code Est Pt Level 4 (55777) Diagnoses Peripheral neuropathy G62.9 Spondylosis without myelopathy or radiculopathy, lumbar region M47.816 Bilateral primary osteoarthritis of knee M17.0 Chronic pain syndrome G89.4 Disc degeneration, lumbar M51.36 Trochanteric bursitis, left hip M70.62
[2024-11-12 08:32] VITALS: BP 124/89; PULSE 92; RESP 18; O2SAT 99
--- OUTSIDE RECORDS SUMMARY | 2024-11-12 08:47 | XMS_ITS | Patient Health Record ---
Author Organization [facility] Address [address] [place] [address] Care Team Providers Care Outside Collector Name Role Phone Alma IVORY, Debbi Primary Care Provider Rashid Narayan Unavailable [phone] Allergies Allergen (clinical drug ingredient) Drug/Non Drug [...] Status Risk Notes Problem Colon cancer screening (902192804) Colon cancer screening (Z12.11) Active confirmed Problem 472752523 Abdominal bloating (R14.0) Active confirmed Problem Preprocedural examination (929240699500649) Preprocedural examination (Z01.818) Active confirmed Problem Irritable bowel syndrome characterized by constipation (730684221) Irritable bowel syndrome with constipation (K58.1) Active confirmed Problem 56250933 Abdominal gas pain (R14.1) Active confirmed Problem Long-term current use of drug therapy (826764713) High risk medications (not anticoagulants) long-term use (Z79.899) Active confirmed Vital Signs Blood pressure diastolic 77 mm Hg 09/11/2024 Height 62 in 09/11/2024 Blood pressure systolic 111 mm Hg 09/11/2024 Weight 140 lbs 09/11/2024 BMI 25.6 kg/m2 09/11/2024 Procedures Procedure Date Ordered Date Performed Result Body Sit e COLONOSCOPY 09/11/2024 N/A Encounters Encounter Location Date Provider Diagnosis [facility] [address] [place] [address] 09/11/2024 Rashid Wilson Colon cancer screeni ng Z12.11 ; Irritable bowel syndrome with constipation K58.1 ; Preprocedural examination Z01.818 and High risk medications (not anticoagulants) long-term use Z79.899 [facility] [address] [place] [address] 10/04/2024 Rashid Wilson Assessments Encounter Date Diagnosis [...] Ladd Steve , 12/15/2024 07:30:00 AM, [address] [facility] [facility] , [place], [place], [id number], Insurance Providers Payer Name Payer Address Payer Phone Subscriber Number Group Number Insured Name Patient Relationship to Insured Coverage Start Date Coverage End Date MEDICARE OF [place] [address] [place], [place] [id number] [phone] [id number] LEANDRA ESPINOZA Self - patient is the insured 8 [employer] ([employer] [place]) [address] [place] [address] [id number] LEANDRA ESPINOZA Self - patient is the insured Medical (General) History Medical History History ICD Code 06/07/2004 Colonoscopy w/small internal hemorrhoids Uses Hctz for edema due to the Lyrica IBS--uses Hyoscyamine prn wi th relief--constipation, but stable on her bowel regimen Hyperlipidemia Shingles Denies [place],DM,CVA,Lung disease,renal dise ase Back pain with disc [...]
--- OUTSIDE RECORDS SUMMARY | 2024-11-12 08:48 | XMS_ITS | Patient Health Record ---
Author Organization [facility] Address [address] [place] [address] Care Team Providers Care Sole Blacker Name Role Phone Alma IVORY, Debbi Garcia Primary Care Provider Un available Ratna Chua Unavailable [phone] Emanuel Crawford Unavailable [phone] Allergies Allergen (clinical drug ingredient) Drug/Non Drug Allergy documented on EMR Reaction Allergy Type Onset Date Status ibuprofen Advil Unknown Drug Allergy Active aspirin Aspirin Unknown Drug Allergy Active Non-steroidal anti-inflammatory agent (FN) NSAIDs stomach pain Drug Allergy Active Reason For Referral No Information Medications Medication SIG (Take, Route, Frequency, Duration) Notes Start Date End Date Status PriLOSEC OTC 20 MG 1 tablet Orally Once a day; Duration: 30 day(s) Active Evista Not-Taking traZODone HCl 100 MG 1 tablet at bedtime Orally Once a day; Duration: 30 day(s) Active Voltaren 1 % as directed Externally Active Vitamin D 2000 UNIT Orally Active Elavil 10mg Active Dulcolax 10 MG Rectal Activ e Estradiol Not-Taking Estrace 2 MG 1 tablet Orally Daily for Three Weeks, 1 Week off; Duration: 30 day(s) Active Premarin 1.25 MG Once a day No t-Taking hydroCHLOROthiazide 12.5 MG Orally Active Soma Not-Taking Hyoscyamine Sulfate 0.125 MG/5ML 5 ml as needed Orally every 4 hrs Active Lipitor 20 MG 1 tablet Orally Once a day Not-Taking Walking Boot/Pneumatic As directed Wear Daily; Duration: Until further notice Not-Taking oxyCODONE HCl 5 MG 1 tablet as needed Orally every 6 hrs PRN Active Lyrica 75 MG Orally Not-Long ing Atorvastatin Calcium 20 MG 1 tablet Oral ly Once a day; Duration: 30 day(s) Active Methocarbamol 750 MG 1 tablet Orally every 4 hrs; Duration: 30 day(s) Not-Taking Colace 100 MG 2 capsules Orally once daily Active Vicodin 5-300 MG Orally Not -Taking Immunizations Vaccine Route Administration Date Status Comme nts Influenza Unknown 12/18/2023 Administered COVID-19 [employer]/Gelacio Unknown 01/14/2021 Administered 1st 06/25/2020 Social History Tobacco Use: Social History Observation Description Date Details (start date - stop date) Never Smoker NA - NA Tobacco use other than smoking: Question Answer Notes Are you an other tobacco user? No Tobacco Control (Standard) Question Answer Notes Tobacco use: Nonsmoker Additional Findings: Tobacco non-user Current no nsmoker AUDIT-C (Standard) Question Answer Notes Did you have a drink containing alcohol in the p ast year? No Points 0 Interpretation Negative Problems Problem Type SNOMED Code ICD Code Onset Dates Problem Status W/U Status Risk Notes Problem Localized, primary osteoarthritis of the ankle and/or foot (488402529) Primary osteoarthritis , left ankle and foot (M19.072) Active confirmed Problem Acquired hallux valgus (12404393) Hallux valgus (acquired), left foot (M20.12) Active confirmed Problem Acquired hammer toe of left foot (4838761153233020) Other hammer toe(s) (acquired), left foot (M20.42) Active confirmed Problem Lymphedema (12869532) Lymphedema (I89.0) Active confirmed Problem Left metatarsus adductus (disorder) (43732108450555808 ) 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 Vital Signs Blood pressure diastolic 65 mm Hg 09/08/2024 Height 5ft2in in 09/08/2024 Blood pressure systolic 128 mm Hg 09/08/2024 Weight 150 lbs 09/08/2024 BMI 27.43 kg/m2 09/08/2024 Procedures Procedure Date Ordered Date Performed Result Body Sit e , A9407-WUMXA/INJECT, JOINT/BURSA 03/20/2024 N/A , E9529-IKOZH/INJECT, JOINT/BURSA 09/08/2024 N/A Encounters Encounter Location Date Provider Diagnosis [address] [address] 11/29/2023 Emanuel Crawford Pain in left foot M79.672 ; Primary osteoarthritis, left ankle and foot M19.072 ; Metatarsalgia, left foot M77.42 ; 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 ; Other hammer toe(s) (acquired), left foot M20.42 ; Peroneal tendinitis of left lower extremity M76.72 ; Hallux valgus (acquired), left foot M20.12 and Lymphedema I89.[address] [address] 03/20/2024 Ratna Chua Sinus tarsitis of left foot M25.[address] [address] 09/08/2024 Ratna Chua Sinus tarsitis of left foot M25.[address] [address] 07/22/2024 Ratna Toma Assessments Encounter Date Diagnosis (ICD Code) Assessment Notes Treatment Notes Treatment Clinical Notes Section Notes 11/29/2023 Pain in left foot (ICD-10 - M79.672) 11/29/2023 Primary osteoarthritis, left ankle and foot (ICD-10 - M19.072) 03/20/2024 Sinus tarsitis of left foot (ICD-10 - M25.572) 09/08/2024 Sinus tarsitis of left foot (ICD-10 - [...] Patient Educated with: INJECTIONTHERA PY.pdf (INJECTIONTHER APY.pdf) 09/08/2024 Other Patient Educated with: RICE THERAPY.pdf (RICE THERAPY.pdf) Patient Educated with: INJECTIONTHERA PY.pdf (INJECTIONTHER APY.pdf) Plan Of Treatment Pending Test Test Name Order Date X ray : Foot, right 2V 09/05/2011 X ray : Foot, left 3V 08/05/2018 X ray : Foot, left 3V 06/01/2021 95312, J0702- INJECT TENDON ORIGIN/INSER T 12/27/2022, J0702- INJECT or DRAIN, JOINT/BUR SA 03/08/2023, G3162-VFYFJ/INJECT, JOINT/BURSA 0 03/20/2024, V3287-VUNLO/INJECT, JOINT/BURSA 0 09/08/2024, N1570-DUGXW/INJECT, JOINT/BURSA 0 10/16/2018 X ray : Ankle, right 3V 09/05/2011 Next Appt Details Provider Name:Ratna Lopez deb, 12/31/2024 09:15:00 AM, [address] [facility], [place], [address], Insurance Providers Payer Name Payer Address Payer Phone Subscriber Number Group Number Insured Name Patient Relationship to Insured Coverage Start Date Coverage End Date Medicare National [employer] [address] [facility] [place] [address] [id number] Leandra Galvez Self - patient is the insured [employer] ([employer]) [address] [place] [address] [phone] [id number] Leandra Galvez Self - patient is [...] sciatica 2004 tonsillectomy 1971 lap band insertion 2005 cystocele repair 2013 Right shoulder arthroscopy 1989 right thumb arthroscopy 2014 left thumb arthroscopy 2016 Appendectomy 09/01/2013 breast reduction and abdominoplasty 11/11 Pain Stimulator removed- 3 days [facility] 08/28/2018
--- OUTSIDE RECORDS SUMMARY | 2024-11-12 08:48 | XMS_ITS | Clinical Summary ---
Author Organization [facility] ity Address [address] [place] [address] Care Team Providers Care Finance Advisor Name Role Phone Unavailable Primary Care Provider [...]
== END 2024-11-12 08:50 | disposition home or self-care (01) ==
LOC: HO.PMC 08:26
PROVIDERS: PCP Internal Medicine; Visit Provider Anesthesiology
DX: G62.9 Polyneuropathy, unspecified (principal); M47.816 Spondylosis without myelopathy or radiculopathy, lumbar region; M17.0 Bilateral primary osteoarthritis of knee; G89.4 Chronic pain syndrome; M51.369 Other intervertebral disc degeneration, lumbar region without mention of lumbar back pain or lower extremity pain; M70.62 Trochanteric bursitis, left hip
CPT/HCPCS: 99214

== ENCOUNTER → 2024-11-12 08:25 | Outpatient (BNVA) | payer MEDICARE, OTHER, SELFPAY | PROVIDERS: PCP Internal Medicine; Visit Provider Anesthesiology | DX: Z51.81 Encounter for therapeutic drug level monitoring (principal); M47.816 Spondylosis without myelopathy or radiculopathy, lumbar region; M17.0 Bilateral primary osteoarthritis of knee; M51.360 Other intervertebral disc degeneration, lumbar region with discogenic back pain only; M70.62 Trochanteric bursitis, left hip; G62.9 Polyneuropathy, unspecified; G89.4 Chronic pain syndrome; Z79.891 Long term (current) use of opiate analgesic | CPT/HCPCS: 99212 ==

== ENCOUNTER 2024-11-17 23:50 | Inpatient (IN) | payer MEDICARE, OTHER, SELFPAY ==
--- OUTSIDE RECORDS SUMMARY | 2023-08-10 08:23 | XMS_ITS | Continuity of Care Document ---
Author Organization [facility] Address [address] [place] [address] Phone Care Team Providers Care Crossing Watchman Name Role Phone Navdeep IVORY, RVT, RPVI, [...] Diagnoses Date Provider Providers Copied on Encounter [facility] [facility] MD WETZEL, [address] [place] [address] Dr Valenzuela [address]Michael [place], [id number], tel:[phone] CVR - [place] No Information 4 Navdeep IVORY RVT, CAROLA Mike. [address] [address], [facility] [place] [id number] , [place]. tel:[phone] Office/Outpt E&M Established 15 Mins- CT & [place] [facility] [facility] MD WETZEL, [address] [place] [address] Dr Valenzuela 1000SuMichael toure [place], [id number], [place] tel:[phone] CVR - [place] Lymphedema, not elsewhere classifiedCramp and spasmRestless legs syndrome 4 Navdeep IVORY RVT, CAROLA Mike. [address] [address], [place], [place], [id number] , [place]. tel:[phone] Referring Provider: Debbi Garcia, [address] [place] [address], [address]. tel:[phone] [facility] [facility] MD WETZEL, [address] [place] [address] Dr Valenzuela [address]Suite Michael Sanchez [place], [id number], [place] tel:[phone] CVR - [facility] Chronic venous hypertension (idiopathic) with other complications of bilateral lower extremity 4 Navdeep IVORY RVT, CAROLA Mike. [address], [address], [facility] [place], [id number] , [place]. tel:[phone] Referring Provider: Debbi Garcia, [address] [place], [address]. tel:[phone] [facility], [address] [place] [address] Dr Valenzuela 1000Suite 1000Michael [place], [id number], [place] tel:[phone] CVR - [facility] Encounter for follow-up examination after completed treatment for conditions other than malignant nePain in left leg Apr-0 4 Navdeep IVORY RVT, CAROLA Mike. [address], [address], [place], [place], [id number] , [place]. tel:[phone] Referring Provider: Debbi Marquez MD Jose, [address] [place] [address], [address]. 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 [address] [address], [place], [place], [id number] , [place]. [phone] Referring Provider: Debbi Marquez MD Jose, [address] [place] [address], [address]. tel:[phone] [facility], [address] [place] [address] Dr Valenzuela 1000Suite 1000Michael [place], [id number], [place] tel:[phone] CVR - [facility] Encounter for follow-up examination after completed treatment for conditions other than malignant nePain in right leg Apr-0 4 Navdeep IVORY RVT, CAROLA Mike. [address] [address], [place], [place], [id number] , [place]. [phone] Referring Provider: Debbi Garcia, [address] [place] [address], [address]. tel:[phone] [facility], [address] [place] [address] Dr Valenzuela 1000[address] 1000Michael [place], [id number], [place] tel:[phone] [place] - [place] Chronic venous hypertension (idiopathic) with inflammation of right lower extremity May-2 4 Navdeep IVORY RVT, CAROLA Mike. [address], [facility] [address], [place], [place], [id number] , [place]. tel:[phone] Referring Provider: Debbi Garcia, [address] [place] [address], [address]. tel:[phone] Office/Outpt E&M Established 25 Mins [facility], [address] [place] [address] Dr Valenzuela 1000Suite 1000Michael [place], [id number], [place] tel:[phone] [place] - [place] [facility] [place] Chronic venous hypertension (idiopathic) with other complications of bilateral lower extremityPain in left lower legPain in right legPain in left legRestless legs syndromeVenous insufficiency (chronic) (peripheral)Brass Sorter mp and spasmLocalized edema May- 4 Navdeep IVORY RVT, CAROLA Mike. [address], [facility] [address], [place], [place], [id number] , [place]. [phone] Referring Provider: Debbi Garcia, [address] [place] [address], [address]. tel:[phone] [facility], [address] [place] [address] Dr Valenzuela 1000Suite 1000Michael [place], [id number], [place] tel:[phone] CVR - [facility] Chronic venous hypertension (idiopathic) with other complications of bilateral lower extremity May- 4 Navdeep IVORY RVT, RPVI Robert. [address], [address], [place], [place], [id number] , [place]. tel:[phone] Referring Provider: Debbi Garcia, [address] [place] [address] [place], [address]. tel:[phone] Office/Outpt E&M Established 15 Mins [facility], [address], [place], [id number], [place] tel:[phone] [place] - [place] Body mass index (BMI) 33.0-33.9, adultChronic venous htn w oth comp of bilateral low extrm 3 Jose IVORY FACS RVT RPVI Deangelo Nicole. [address], [address], [place], [address], [place]. tel:[phone] Referring Provider: Deangelo Garcia MD FACS RVT RPVI, [address], [place], [address]. tel:[phone] Family History Family Member Type Diagnosis Age At Onset No Information Payers Payer name Insurance type Covered republican ID Authoriza tion(s) Medicare MARCO ANTONIO MEDINA [id number] [facility] [id number] Social History Type Description Quantity Date Captured [...]
--- OUTSIDE RECORDS SUMMARY | 2024-03-20 05:00 | XMS_ITS ---
Author Organization [facility] Address [address] [place] [address] Care Team Providers Care Front Desk Coordinator Name Role Phone Alma IVORY, Debbi Garcia Primary Care Provider Un available Ratna Chua Unavailable [phone] Encounters Encounter Location Date Provider Diagnosis [facility] [address] [place] [address] 03/20/2024 Ratna Chua Plan Of Treatment Next Appt Details Provider Name:Ratna Lopez ker, 12/31/2024 09:15:00 AM, [address] [place], [address], Progress Notes * OLGA Leandra ADOB: [birth year] (74 yo F)Acc No.[id number]:03/20/2024 Progress Note Patient: Leandra HURTADO Provider: Kvng Chua DPM :1950 A ge:73 Y S ex:Female Date:03/20/2024 Address:[address] [place] [address] Pcp:Wilberto Cook Subjective: * Chief Complaints: * [...] 03/20/2024 Generated for Yissel patel/Luca/Han on: 0 11/18/2024 02:02 AM EDT
--- OUTSIDE RECORDS SUMMARY | 2024-07-24 05:00 | XMS_ITS ---
Author Organization [facility] Address [address] [place] [address] Care Team Providers Care Service Order Expediter Name Role Phone Alma IVORY, Debbi Garcia Primary Care Provider Un available Ratna Chua Unavailable [phone] Encounters Encounter Location Date Provider Diagnosis [facility] [address] [place] [address] 07/24/2024 Ratna Chua Plan Of Treatment Next Appt Details Provider Name:Ratna Lopez ker, 12/31/2024 09:15:00 AM, [address] [place], [address], Progress Notes * OLGA Leandra ADOB: [birth year] (74 yo F)Acc No.[id number]:07/24/2024 Progress Note Patient: Leandra HURTADO Provider: Kvng Chua DPM :1950 A ge:73 Y S ex:Female Date:07/24/2024 Address:[address] [place] [address] Pcp:Wilberto Cook Subjective: * Chief Complaints: * [...] 07/24/2024 Generated for Yissel patel/Luca/Han on: 0 11/18/2024 02:02 AM EDT
--- OUTSIDE RECORDS SUMMARY | 2024-09-08 11:45 | XMS_ITS ---
Author Organization [facility] Address [address] [place] [address] Care Team Providers Care Heating And Cooling Systems Engineer Name Role Phone Alma IVORY, Debbi Garcia Primary Care Provider Un available Ratna Chua Unavailable [phone] Allergies Allergen (clinical drug ingredient) Drug/Non Drug [...] Active Encounters Encounter Location Date Provider Diagnosis [facility] [address] [address] 09/08/2024 Ratna Chua Plan Of Treatment Next Appt Details Provider Name:Ratna Jessica boyd, 12/31/2024 09:15:00 AM, [address] [place], [address], Progress Notes * Leandra ESPINOZA ADOB: [birth year] (74 yo F)Acc No.[id number]:09/08/2024 Progress Note Patient: Leandra HURTADO Provider: Kvng Chua DPM :1950 A ge:73 Y S ex:Female Date:09/08/2024 Address:[address] [place], [place] [id number] Pcp:Wilberto Cook Subjective: * Chief Complaints: * [...] 09/08/2024 Generated for Yissel patel/Luca/Han on: 0 11/18/2024 02:01 AM EDT
--- NOTE | ~2024-11-17 | CT_ITS ---
CLINICAL HISTORY: sbo? CT abdomen and pelvis with contrast Comparison: CT/REG/SC/SR - CT ABDOMEN PELVIS WITH IV CONTRAST - 10/26/22 00:05 EDT Findings: The heart is normal in size. Coronary artery calcifications are present. Mild linear atelectasis is seen in bilateral lower lobes. Subcentimeter left hepatic hypodensity is too small to characterize. Cholecystectomy clips are present. The pancreas, spleen, bilateral adrenal glands, and bilateral kidneys appear within normal limits. Gastric band is present. Colonic diverticulosis is present. There has been prior appendectomy. Multiple dilated loops of small bowel are present. The transition point appears to be within the right hemiabdomen with decompressed distal ileal loops. Incidental note is made of a jejunojejunal intussusception (best seen on coronal image 40), which is not the site of obstruction. There is no pneumoperitoneum. The urinary bladder appears normal. There is no adenopathy. Mild ascites is seen in the pelvis. Moderate to severe degenerative changes are seen in the spine, most prominent at L4/5. No acute osseous abnormality is identified. IMPRESSION: 1. Multiple dilated loops of proximal small bowel. The transition point appears to be within the right hemiabdomen with decompressed distal ileal loops. Findings are most consistent with a small-bowel obstruction. 2. Incidental note of a jejunojejunal intussusception, which is not the site of obstruction. 3. Mild pelvic ascites. 4. Other findings as described. This document has been electronically signed by: Jerry Rivera on 11/18/2024 08:15:22
--- NOTE | ~2024-11-17 | XR_ITS ---
EXAMINATION: XR CHEST CLINICAL INFORMATION: NG tube placement COMPARISON: 03/04/2022 TECHNIQUE: Frontal view of the chest was obtained. FINDINGS: NG tube has been placed, with the tip just distal to the GE junction. The sidehole is proximal to the GE junction. This device should be advanced significantly. Gastric banding device noted with an abnormal phi angle with relation to the spine. The cardiac, hilar, and mediastinal contours are normal. There are low lung volumes. There is mild linear bibasilar atelectasis. No consolidations. No pneumothorax or effusion. No focal osseous or soft tissue abnormality. XR/XR chest 1V IMPRESSION: 1. NG tube proximally positioned as detailed. This device should be repositioned. 2. No active lung disease. 3. Gastric banding device with abnormal phi angle with relation to the spine. Cannot exclude band slippage. Electronically signed by: Jordan Hutchins MD 11/18/2024 09:36 AM EDT
[2024-11-17 23:58] VITALS: BP 145/82; BP 146/80; PULSE 82; RESP 16; TEMP 36.6; O2SAT 98; BMI 25.2
[2024-11-18 00:03] VITALS: BP 146/80; PULSE 82; RESP 16; TEMP 36.6; O2SAT 98
[2024-11-18 00:20] LABS: MANUAL DIFF FLAG NO
[2024-11-18 00:23] LABS: Hematocrit 39.2 % (37.0-47.0); Hemoglobin 13.3 g/dl (12.0-16.0); Imm Gran Abs Auto 0.04 X10*3/uL (0.00-0.03); Imm Gran Pct Auto 0.3 % (0.0-0.4); Lymphocytes Absolute Auto 4.1 X10*3/uL (1.2-4.9); Mean Corpuscular HGB Conc 33.9 g/dl (31.0-35.0); Mean Corpuscular Hemoglobin 30.6 pg (27.0-33.0); Mean Corpuscular Volume 90.1 fL (80.0-98.0); NRBC Abs Auto 0.000 X10*3/uL (0.0-0.012); NRBC Pct Auto 0.0 /100WBC (0.0-0.2); Platelet Count 407 X10*3/uL (160-400); Red Blood Count 4.35 X10*6/uL (4.20-5.50); White Blood Count 11.5 X10*3/uL (4.8-10.8)
[2024-11-18 00:36] LABS: Anion Gap 17 (12-20); Blood Urea Nitrogen 13 mg/dL (9-16); Calcium 9.8 mg/dL (8.4-10.2); Carbon Dioxide 26 mmol/L (22-29); Chloride 100 mmol/L (96-108); Creatinine Clr Calc Pharmacy 59.8; Estimated Glomerular Filt Rate > 60; Lipase 23 U/L (8-78); Potassium 3.6 mmol/L (3.3-5.1); Sodium 139 mmol/L (135-145)
--- OUTSIDE RECORDS SUMMARY | 2024-11-18 02:02 | XMS_ITS | Patient Health Record ---
Author Organization [facility] Address [address] [place] [address] Care Team Providers Care Wrap Yarn Sorter Name Role Phone Alma IVORY, Debbi Primary Care Provider Rashid Narayan Unavailable [phone] Allergies Allergen (clinical drug ingredient) Drug/Non Drug [...] Status Risk Notes Problem Colon cancer screening (076871121) Colon cancer screening (Z12.11) Active confirmed Problem 816882720 Abdominal bloating (R14.0) Active confirmed Problem Preprocedural examination (748877115119270) Preprocedural examination (Z01.818) Active confirmed Problem Irritable bowel syndrome characterized by constipation (010523145) Irritable bowel syndrome with constipation (K58.1) Active confirmed Problem 70474921 Abdominal gas pain (R14.1) Active confirmed Problem Long-term current use of drug therapy (147635965) High risk medications (not anticoagulants) long-term use (Z79.899) Active confirmed Vital Signs Blood pressure diastolic 77 mm Hg 09/11/2024 Height 62 in 09/11/2024 Blood pressure systolic 111 mm Hg 09/11/2024 Weight 140 lbs 09/11/2024 BMI 25.6 kg/m2 09/11/2024 Procedures Procedure Date Ordered Date Performed Result Body Sit e COLONOSCOPY 09/11/2024 N/A Encounters Encounter Location Date Provider Diagnosis [facility] [address] [place] [address] 09/11/2024 Rashid Wilson Colon cancer screeni ng Z12.11 ; Irritable bowel syndrome with constipation K58.1 ; Preprocedural examination Z01.818 and High risk medications (not anticoagulants) long-term use Z79.899 [facility] [address] [place] [address] 10/04/2024 Rashid Wilson Assessments Encounter Date Diagnosis [...] Ladd Steve , 12/15/2024 07:30:00 AM, [address] [facility] , [place], [place], [id number], Insurance Providers Payer Name Payer Address Payer Phone Subscriber Number Group Number Insured Name Patient Relationship to Insured Coverage Start Date Coverage End Date [place] [address] [place], [place] [id number] [phone] [id number] LEANDRA ESPINOZA Self - patient is the insured [employer] ([employer]) [address] [place] [address] [phone] [id number] LEANDRA ESPINOZA Self - patient is the insured Medical (General) History Medical History History ICD Code 06/07/2004 Colonoscopy w/small internal hemorrhoids Uses Hctz for edema due to the Lyrica IBS--uses Hyoscyamine prn wi th relief--constipation, but stable on her bowel regimen Hyperlipidemia Shingles Denies [place],DM,CVA,Lung disease,renal dise ase Back pain with disc [...]
--- OUTSIDE RECORDS SUMMARY | 2024-11-18 02:02 | XMS_ITS | Clinical Summary ---
Author Organization [facility] ity Address [address] [place] [address] Care Team Providers Care Director Of Claims Name Role Phone Unavailable Primary Care Provider [...]
--- OUTSIDE RECORDS SUMMARY | 2024-11-18 02:02 | XMS_ITS | Patient Health Record ---
Author Organization [facility] Address [address] [place] [address] Care Team Providers Care Academic Tutor Name Role Phone Alma IVORY, Debbi Garcia Primary Care Provider Un available Ratna Chua Unavailable [phone] Emanuel Crawford Unavailable [phone] Allergies Allergen (clinical drug ingredient) Drug/Non Drug [...] primary osteoarthritis of the ankle and/or foot (370463943) Primary osteoarthritis , left ankle and foot (M19.072) Active confirmed Problem Acquired hallux valgus (68675239) Hallux valgus (acquired), left foot (M20.12) Active confirmed Problem Acquired hammer toe of left foot (5323203442561101) Other hammer toe(s) (acquired), left foot (M20.42) Active confirmed Problem Lymphedema (77873233) Lymphedema (I89.0) Active confirmed Problem Left metatarsus adductus (disorder) (82817297903850159 ) 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 Vital Signs Blood pressure diastolic 65 mm Hg 09/08/2024 Height 5ft2in in 09/08/2024 Blood pressure systolic 128 mm Hg 09/08/2024 Weight 150 lbs 09/08/2024 BMI 27.43 kg/m2 09/08/2024 Procedures Procedure Date Ordered Date Performed Result Body Sit e , Z7286-QSEUL/INJECT, JOINT/BURSA 03/20/2024 N/A , W2578-WKPDC/INJECT, JOINT/BURSA 09/08/2024 N/A Encounters Encounter Location Date Provider Diagnosis [address] [address] 11/29/2023 Emanuel Crawford Pain in left foot M79.672 ; Primary osteoarthritis, left ankle and foot M19.072 ; Metatarsalgia, left foot M77.42 ; 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 ; Other hammer toe(s) (acquired), left foot M20.42 ; Peroneal tendinitis of left lower extremity M76.72 ; Hallux valgus (acquired), left foot M20.12 and Lymphedema I89.[address] [address] 03/20/2024 Ratna Chua Sinus tarsitis of left foot M25.[address] [address] 09/08/2024 Ratna Chua Sinus tarsitis of left foot M25.[address] [address] 07/22/2024 Ratna Toma Assessments Encounter Date Diagnosis [...] X ray : Foot, left 3V 06/01/2021 35319, J0702- INJECT TENDON ORIGIN/INSER T 12/27/2022, J0702- INJECT or DRAIN, JOINT/BUR SA 03/08/2023, M8459-JGOJU/INJECT, JOINT/BURSA 0 03/20/2024, N3633-WPGER/INJECT, JOINT/BURSA 0 09/08/2024, F3085-DSWQS/INJECT, JOINT/BURSA 0 10/16/2018 X ray : Ankle, right 3V 09/05/2011 Next Appt Details Provider Name:Ratna Lopez deb, 12/31/2024 09:15:00 AM, [address] [facility], [place], [address], Insurance Providers Payer Name Payer Address Payer Phone Subscriber Number Group Number Insured Name Patient Relationship to Insured Coverage Start Date Coverage End Date Medicare National Govt Sv[employer] [address] [place] [address] [id number] Leandra Galvez Self - patient is the insured [employer] [address] [place] [address] [id number] Leandra Galvez Self - patient is [...] abdominoplasty 11/11 Pain Stimulator removed- 3 days [facility] 08/28/2018
[2024-11-18 02:54] LABS: Appearance Urine Cloudy; Glucose Urine UA Negative (Negative); PH 8.5 (5.0-9.0); Specific Gravity - Urine 1.010 (1.005-1.025); UMIC TRIGGER UACC YES
--- NOTE | 2024-11-18 04:38 | ED.GENADULT ---
HPI - General Adult General Chief complaint: Abdominal Pain Stated complaint: ABDOMINAL PAIN Time Seen by Provider: 11/18/24 03:02 Source: patient Limitations: no limitations History of Present Illness ED Provider: Era Villalobos PA-C HPI narrative: 74-year-old female with a history of chronic pain secondary to osteoarthritis, chronic back pain, who was on chronic opiate therapy, peripheral neuropathy, hypertension, hyperlipidemia, prior bowel obstruction without surgical intervention, presents with the abdominal pain. Patient states she developed significant central abdominal discomfort early this evening. Associated abdominal distention, passing minimal flatus from below, minimal bowel movement over a day ago. Patient is started actively vomiting when she arrived to the emergency room. Denies fever. Related Data Home Medications ?Medication ?Instructions ?Recorded ?Confirmed estradiol 2 mg tablet (Estrace) 2 mg PO DAILY 07/12/20 11/18/24 docusate sodium 100 mg capsule 200 mg PO DAILY 08/19/20 11/18/24 (Colace) cholecalciferol (vitamin D3) 50 50 mcg PO BEDTIME 10/26/22 11/18/24 mcg (2,000 unit) tablet (Vitamin D3) magnesium 250 mg tablet 250 mg PO BEDTIME 01/29/24 11/18/24 amitriptyline 25 mg tablet 25 mg PO BEDTIME 11/18/24 11/18/24 ikjifqqv-ptjolcz-ziqt-lutein tablet 1 tab PO DAILY 11/18/24 11/18/24 naloxegol 12.5 mg tablet (Movantik) 12.5 mg PO DAILY 11/18/24 11/18/24 Previous Rx's ?Medication ?Instructions ?Recorded hydrochlorothiazide 12.5 mg tablet 12.5 mg PO DAILY #90 tabs 12/05/23 trazodone 100 mg tablet 100 mg PO BEDTIME #90 tabs 12/05/23 atorvastatin 20 mg tablet 20 mg PO DAILY #90 tabs 12/24/23 naloxone 4 mg/actuation nasal 4 mg intranasal Q2M PRN opioid 05/22/24 spray (Narcan) overdose #2 ea amitriptyline 50 mg tablet 50 mg PO BEDTIME 90 days #90 tabs 09/12/24 oxycodone 5 mg tablet 5 mg PO BID PRN pain 30 days #60 11/12/24 tabs Allergies Allergy/AdvReac Type Severity Reaction Status Date / Time buprenorphine (Belbuca) Allergy Unknown stomach Verified 11/18/24 00:00 upset NSAIDS (Non-Steroidal Allergy Unknown Stomach Verified 11/18/24 00:00 Anti-Inflamma Upset Review of Systems Review of Systems: Yes all other systems are reviewed and are negative Constitutional: Constitutional: Denies fatigue and Denies fever(s) Cardiovascular: Cardiovascular: Denies chest pain and Denies dyspnea Respiratory: Respiratory: Denies dyspnea Gastrointestinal: Gastrointestinal: Reports abdominal pain, Reports bloating, Reports constipation, Reports nausea and Reports vomiting Genitourinary: Genitourinary: Denies dysuria Endocrine: Endocrine: Denies fatigue [facility] Past Medical History Attestation statement: The following information was validated with the patient. Medical History Osteoarthritis History of osteopenia Obesity (BMI 30.0-34.9) Prolapse of anterior vaginal wall Essential hypertension Dyslipidemia Irritable bowel syndrome Chronic pain syndrome Bilateral primary osteoarthritis of knee Spondylosis without myelopathy or radiculopathy, lumbar region Surgical History History of tonsillectomy History of hysterectomy History of carpal tunnel surgery History of cholecystectomy History of laparoscopic appendectomy History of lumbar laminectomy History of reduction mammoplasty H/O abdominoplasty Hx of bariatric surgery Family History Family History Mother Diabetes mellitus Essential hypertension Cardiovascular disease Daughter Wernicke-Korsakoff syndrome (alcoholic) Social History Social History Household Members: None Household Members Other:: 0 Housing: House Do you presently have visiting nurse or other home services: No Alcohol intake: never Patient Tobacco Use Status: Former Tobacco user Smoked in Last 30 Days: No e-Cigarette/Vaping Use: Never Used Use of substances other than those prescribed or required for medical reasons: No Have you been hit, kicked, punched, or otherwise hurt by someone within the past year? If so, by whom?: No Advance Directives: Yes Advance Directives on File: Yes Advance Directives Date on File: 12/22/21 Do you have a plan to hurt others: No Plan Recently lost weight without trying: No Nutrition Risks: No Nutritional Risk Patient : No : No Poor oral hygiene: No service: No Current occupational status: retired Cognitive needs: No Hearing needs: No Vision needs: No Physical Exam ED Vital Signs: Vital Signs - 24 hr 11/17/24 23:58 11/18/24 00:03 11/18/24 05:42 Temperature 97.8 F 97.8 F 97.9 F Pulse Rate 82 82 78 Respiratory Rate 16 16 18 Blood Pressure 146/80 H 146/80 H 127/73 Pulse Oximetry 98 98 99 Oxygen Delivery Method Room Air Room Air Room Air BMI result Body Mass Index 25.2 Const Other: Alert, appears uncomfortable Orientation/consciousness: patient oriented x3 Resp Other: Nonlabored respirations Cardio Other: Normal peripheral perfusion GI Other: Soft, somewhat bloated, generalized tenderness to palpation no overt guarding Skin Other: Warm dry no rash Neuro General: patient oriented x3, gait normal, no focal motor deficits and CN's II-XI intact bilaterally Psych Other: Cooperative Course Reevaluation(s) Reevaluation #1: Signed out to day team pending imaging and final disposition Reevaluation #2: Aliyah Mccoy DO 11/18/24 0826 NG tube ordered, discussed case with Dr. White the patient will be admitted for SBO Medications Administered Generic Name Dose Route Start Last Admin Trade Name Freq PRN Reason Stop Dose Admin Heparin Sodium (Porcine) 5,000 unit 11/18/24 09:00 11/18/24 10:38 Heparin Sodium,Porcine 5,000 Unit/Ml Vial SUBCUT 5,000 unit Q12H CROW Administration Hydromorphone HCl 0.5 mg 11/18/24 08:36 11/18/24 12:23 Hydromorphone Hcl 0.5 Mg/0.5 Ml Syringe IVPUSH 0.5 mg Q3H PRN Administration Pain, Severe (Pain Scale 7-10) Protocol Dextrose/Lactated Ringer's 1,000 mls @ 125 mls/hr 11/18/24 08:45 11/18/24 19:36 D5lr IVCONT 125 mls/hr .Q8H CROW Administration Sodium Chloride 3 ml 11/18/24 16:00 11/18/24 14:57 0.9 % Sodium Chloride Flush 3 Ml Syringe IVFLUSH Not Given QSHIFT CROW Discontinued Medications Generic Name Dose Route Start Last Admin Trade Name Freq PRN Reason Stop Dose Admin Diatrizoate Meglum/Diatrizoate Sod 30 ml 11/18/24 06:33 11/18/24 06:33 Diatrizoate Meglumine, Sodium 30 Ml Solution PO 11/18/24 06:34 30 ml ONCE ONE Administration Sodium Chloride 500 mls @ 500 mls/hr 11/18/24 03:03 11/18/24 04:27 Ns IV 11/18/24 04:02 Infused .Q1H ONE Infusion Lactated Ringer's 1,000 mls @ 80 mls/hr 11/18/24 07:45 11/18/24 14:12 Lr IVCONT Infused .[id number] CROW Infusion Iohexol 85 ml 11/18/24 06:27 11/18/24 06:31 Iohexol 350 Mg/Ml 100 Ml Infus..Btl IV 11/18/24 06:28 85 ml ONCE ONE Administration Lidocaine HCl 1 appl 11/18/24 08:19 11/18/24 09:22 Lidocaine Hcl 4 % Mpf W/Madgic 5 Ml Ampul TOPICAL 11/18/24 08:20 1 appl ONCE ONE Administration Protocol Morphine Sulfate 6 mg 11/18/24 03:03 11/18/24 03:16 Morphine Sulfate 10 Mg/Ml Cartridge IVPUSH 11/18/24 03:04 6 mg ONCE ONE Administration Protocol Ondansetron HCl 4 mg 11/18/24 03:03 11/18/24 03:16 Ondansetron Hcl 4 Mg/2 Ml Vial IVPUSH 11/18/24 03:04 4 mg ONCE ONE Administration Medical Decision Making Medical Decision Making MDM Narrative: 74-year-old female with a history of chronic pain secondary to osteoarthritis, chronic back pain, who was on chronic opiate therapy, peripheral neuropathy, hypertension, hyperlipidemia, prior bowel obstruction without surgical intervention, presents with the abdominal pain. Patient states she developed significant central abdominal discomfort early this evening. Associated abdominal distention, passing minimal flatus from below, minimal bowel movement over a day ago. Patient is started actively vomiting when she arrived to the emergency room. Denies fever. Problem: Chronic pain, prior SBO History: Per patient I have considered the following differential diagnoses: Constipation, fecal impaction, bowel obstruction Plan: Patient is having obstructive symptoms, she has had SBO in the past, we will be obtaining a CT scan with oral contrast. Giving fluids Zofran and morphine. I have independently reviewed the following tests: Labs: Slight leukocytosis, no left shift, thrombocytosis that is chronic, no electrolyte abnormality, urine not infected CT abdomen and pelvis pending at the time of sign-out Differential Diagnosis Differential Diagnoses: The differential diagnosis associated with the presentation includes See [facility] Admission/Observation Consideration of admission/observation: Escalation of care including admission/observation considered May require surgical consult, CT pending Lab Data [facility] Lab Attestation statement: I reviewed the patient's lab results. 11/18/24 00:12 11/18/24 00:12 Labs: Lab Results 11/18/24 11/18/24 Range/Units 00:12 02:41 WBC 11.5 H (4.8-10.8) X10*3/uL RBC 4.35 (4.20-5.50) X10*6/uL Hgb 13.3 (12.0-16.0) g/dl Hct 39.2 (37.0-47.0) % MCV 90.1 (80.0-98.0) fL MCH 30.6 (27.0-33.0) pg MCHC 33.9 (31.0-35.0) g/dl RDW 13.2 (11.0-16.0) % Plt Count 407 H (160-400) X10*3/uL MPV 9.6 (9.4-12.3) fL Immature Gran % (Auto) 0.3 (0.0-0.4) % Neut % (Auto) 56.5 (45-73) % Lymph % (Auto) 35.2 (20-40) % [place] % (Auto) 6.5 (2-11) % Eos % (Auto) 1.0 (0-4) % Baso % (Auto) 0.5 (0-2) % Lymph # (Auto) 4.1 (1.2-4.9) X10*3/uL [place] # (Auto) 0.8 (0.1-1.2) X10*3/uL Eos # (Auto) 0.1 (0.0-0.4) X10*3/uL Baso # (Auto) 0.1 (0.0-0.2) X10*3/uL Abs Immat Gran (auto) 0.04 H (0.00-0.03) X10*3/uL Absolute Neuts (auto) 6.5 (2.0-8.3) x10*3/uL Absolute Nucleated RBC 0.000 (0.0-0.012) X10*3/uL Nucleated RBC % (auto) 0.0 (0.0-0.2) /100WBC Sodium 139 (135-145) mmol/L Potassium 3.6 (3.3-5.1) mmol/L Chloride 100 (96-108) mmol/L Carbon Dioxide 26 (22-29) mmol/L Anion Gap 17 (12-20) BUN 13 (9-16) mg/dL Creatinine 0.74 (0.5-1.4) mg/dL Estim Creat Clear Calc 59.8 Estimated GFR > 60 Random Glucose 114 (60-115) mg/dL Calcium 9.8 D (8.4-10.2) mg/dL Lipase 23 (8-78) U/L Urine Color Yellow Urine Appearance Cloudy Urine pH 8.5 (5.0-9.0) Ur Specific [place] 1.010 (1.005-1.025) Urine Protein Negative (Neg-Trace) mg/dL Urine Glucose (UA) Negative (Negative) mg/dL Urine Ketones Negative (Negative) mg/dL Urine Blood Negative (Negative) Urine Nitrite Negative (Negative) Ur Leukocyte Esterase Trace H (Negative) Urine RBC 0-2 (0-2) /HPF Urine WBC 0-5 (0-5) /HPF Ur Squamous Epith Cells 6-10 (0-2) /HPF Urine Bacteria Trace (None Seen) Hyaline Casts 0-2 (0-2) /LPF Discharge Plan Discharge Clinical Impression: Small bowel obstruction Abdominal pain Qualifiers: Abdominal location: generalized Qualified Code(s): R10.84 - Generalized abdominal pain Patient Disposition: Admitted As Inpatient Interventions: Admission Worksheet (ED) Last Done: 11/18/24 12:43
[2024-11-18 05:42] VITALS: BP 127/73; PULSE 78; RESP 18; TEMP 36.6; O2SAT 99
[2024-11-18] MEDS: iohexoL 350 MG/ML 100 ML INFUS..BTL 85 ML IV (06:31)
[2024-11-18] MEDS: Lactated Ringers 1,000 ML 80 ML IVCONT (07:59)
[2024-11-18] MEDS: Lidocaine HCl 4 % MPF w/MADgic 5 ML AMPUL 1 APPL TOPICAL (09:22)
[2024-11-18] MEDS: Dextrose 5 % and Lactated Ring 1,000 ML 125 ML IVCONT ×2 (10:11→19:36)
[2024-11-18 10:47] VITALS: BP 162/77; PULSE 80; RESP 19; TEMP 36.4; O2SAT 96
--- NOTE | 2024-11-18 12:32 | PM.HPGS ---
History of Present Illness History of Present Illness Date of Service: 11/18/24 Chief complaint: SBO Narrative: Leandra Galvez is a 74 year old female with a previous history of lap band, now on GLP-1, presenting with complaints of abdominal pain, nausea and vomiting. She reports a prior history of small-bowel obstructions most recently in 2022 which required nasogastric tube decompression. She reports that the symptoms started several hours after eating corn on the cob at home. She waited several hours but noted the pain to increase in severity therefore presented to the emergency department for further evaluation. A CT abdomen and pelvis was obtained which confirmed dilated loops of small bowel with a transition point consistent with small-bowel obstruction. She is admitted to the surgical service for further management of the small bowel obstruction. Review of Systems Review of Systems: Yes all other systems are reviewed and are negative [facility] Past Medical History Medical History Osteoarthritis History of osteopenia Obesity (BMI 30.0-34.9) Prolapse of anterior vaginal wall Essential hypertension Dyslipidemia Irritable bowel syndrome Chronic pain syndrome Bilateral primary osteoarthritis of knee Spondylosis without myelopathy or radiculopathy, lumbar region Family History Family History Mother Diabetes mellitus Essential hypertension Cardiovascular disease Daughter Wernicke-Korsakoff syndrome (alcoholic) Surgical History Surgical History History of tonsillectomy History of hysterectomy History of carpal tunnel surgery History of cholecystectomy History of laparoscopic appendectomy History of lumbar laminectomy History of reduction mammoplasty H/O abdominoplasty Hx of bariatric surgery Social History Social History Household Members: None Household Members Other:: 0 Housing: House Do you presently have visiting nurse or other home services: No Alcohol intake: never Patient Tobacco Use Status: Former Tobacco user Smoked in Last 30 Days: No e-Cigarette/Vaping Use: Never Used Use of substances other than those prescribed or required for medical reasons: No Advance Directives: Yes Advance Directives on File: Yes Advance Directives Date on File: 12/22/21 service: No Current occupational status: retired Cognitive needs: No Hearing needs: No Vision needs: No Meds Allergies Allergy/AdvReac Type Severity Reaction Status Date / Time buprenorphine (Belbuca) Allergy Unknown stomach Verified 11/18/24 00:00 upset NSAIDS (Non-Steroidal Allergy Unknown Stomach Verified 11/18/24 00:00 Anti-Inflamma Upset Active Medications: Current Medications Calcium Carbonate (Calcium Carbonate 750 Mg Tab.Chew) 750 mg PO Q4H PRN PRN Reason: Heartburn Heparin Sodium (Porcine) (Heparin Sodium,Porcine 5,000 Unit/Ml Vial) 5,000 unit SUBCUT Q12H [facility] Last Admin: 11/18/24 10:38 Dose: 5,000 unit Hydromorphone HCl (Hydromorphone Hcl 0.5 Mg/0.5 Ml Syringe) 0.5 mg IVPUSH Q3H PRN; Protocol PRN Reason: Pain, Severe (Pain Scale 7-10) Last Admin: 11/18/24 12:23 Dose: 0.5 mg Lactated Ringer's (Lr) 1,000 mls @ 80 mls/hr IVCONT .[id number] [facility] Last Infusion: 11/18/24 10:12 Dose: 80 mls/hr Dextrose/Lactated Ringer's (D5lr) 1,000 mls @ 125 mls/hr IVCONT .Q8H [facility] Last Admin: 11/18/24 10:11 Dose: 125 mls/hr Acetaminophen (Ofirmev) 1,000 mg in 100 mls @ 400 mls/hr IV Q6H PRN PRN Reason: Pain, Mild (Pain Scale 1-3) Magnesium Hydroxide (Milk Of Magnesia 30 Ml Oral.Susp) 30 ml PO DAILY PRN PRN Reason: Constipation Ondansetron HCl (Ondansetron Hcl 4 Mg/2 Ml Vial) 4 mg IVPUSH QID PRN PRN Reason: Nausea Sodium Chloride (0.9 % Sodium Chloride Flush 3 Ml Syringe) 3 ml IVFLUSH QSHIFT [facility] Home Medications ?Medication ?Instructions ?Recorded ?Confirmed ?Last Taken ?Type estradiol 2 mg tablet (Estrace) 2 mg PO DAILY 07/12/20 06/20/24 10/25/22 History docusate sodium 100 mg capsule 200 mg PO DAILY 08/19/20 06/20/24 10/25/22 History (Colace) bisacodyl 5 mg tablet,delayed 10 mg PO DAILY 10/26/22 06/20/24 10/25/22 History release (Dulcolax (bisacodyl)) cholecalciferol (vitamin D3) 50 50 mcg PO DAILY 10/26/22 06/20/24 10/25/22 History mcg (2,000 unit) tablet (Vitamin D3) omeprazole magnesium 20 mg 20 mg PO DAILY@0630 PRN Acid Reflux 10/26/22 06/20/24 Unknown History capsule,delayed release magnesium 250 mg tablet 250 mg PO DAILY 01/29/24 06/20/24 Unknown History amitriptyline 25 mg tablet 25 mg PO BEDTIME 11/18/24 Unknown History Physical Exam Vital Signs: Vital Signs: Last Vital Signs Temp 97.6 F 11/18/24 10:47 Pulse 80 11/18/24 10:47 Resp 19 11/18/24 10:47 BP 162/77 H 11/18/24 10:47 Pulse Ox 96 11/18/24 10:47 O2 Del Method Room Air 11/18/24 10:47 BMI result Body Mass Index 25.2 Const: General: cooperative and no acute distress Nutritional Appearance: well nourished Orientation/consciousness: patient oriented x3 Limitations: no limitations HEENT: Head: Yes normocephalic and Yes atraumatic Ears: hearing grossly normal bilaterally Resp: Effort & Inspection: normal respiratory effort, no audible wheezes, no cough and no respiratory distress Cardio: Jugular venous distension: no JVD GI: Inspection: Yes normal to inspection Palpation (GI): Soft to palpation, nontender, no guarding and not rigid Percussion: Yes tympanic to percussion Auscultation: abnormal bowel sounds Rectal Exam - Female: deferred Skin: Other: Warm, dry, no rash Neuro: General: patient oriented x3 Extrem: General: Yes no clubbing, cyanosis or edema Results Results Labs: Short CBC 11/18/24 Range/Units 00:12 WBC 11.5 H (4.8-10.8) X10*3/uL Hgb 13.3 (12.0-16.0) g/dl Hct 39.2 (37.0-47.0) % Plt Count 407 H (160-400) X10*3/uL BMP 11/18/24 00:12 Sodium 139 Potassium 3.6 Chloride 100 Carbon Dioxide 26 BUN 13 Creatinine 0.74 Calcium 9.8 D Urine 11/18/24 Range/Units 02:41 Urine Color Yellow Urine Appearance Cloudy Urine pH 8.5 (5.0-9.0) Ur Specific [place] 1.010 (1.005-1.025) Urine Protein Negative (Neg-Trace) mg/dL Urine Glucose (UA) Negative (Negative) mg/dL Assessment and Plan (1) Small bowel obstruction: Status: Acute Plan 74-year-old female patient presenting with a recurrent small bowel obstruction. Review of the CT reveals multiple dilated loops of small bowel with air-fluid levels with a transition point past which decompressed bowel is identified. No twists or identified. There is tubing from the lap band which is noted within the abdominal cavity with the port in the right upper quadrant subcu. Plan: Bowel rest with nasogastric tube decompression and IV fluids. We will consult bariatric surgery for advice regarding the lap band was she seems to have moved proximally. Patient expressed understanding and agrees with the plan. Quality Stroke Does the patient have a stroke diagnosis?: No VTE Prior VTE?: No VTE Risk Level:: Surgical - moderate VTE Device Contraindication: N/A - Device Ordered VTE Drug Contraindication: N/A - Med Ordered Procedures Date of Service Date of Service: 11/18/24
--- NOTE | 2024-11-18 12:46 | PC.NURSE ---
Report to ED overflow
--- NOTE | 2024-11-18 12:53 | PHA.MEDREC ---
Addendum entered by Ron Velarde PharmD 11/18/24 13:06: reviewed Original Note: Pharmacy Consult ? Medication Reconciliation Pharmacy has completed the medication reconciliation. Spoke with pt and she confirmed her medications. Pt taking Amitriptyline 25mg and 50mg tabs together for TDD of 75mg at bedtime.
[2024-11-18 14:00] VITALS: BP 128/69; PULSE 77; RESP 16; TEMP 36; O2SAT 96
[2024-11-18 16:14] VITALS: BMI 25.3
[2024-11-19 04:00] VITALS: BP 137/61; PULSE 76; RESP 16; TEMP 37; O2SAT 98
[2024-11-19] MEDS: Dextrose 5 % and Lactated Ring 1,000 ML 125 ML IVCONT (04:11)
[2024-11-19 05:06] LABS: MANUAL DIFF FLAG NO
[2024-11-19 05:07] LABS: Hematocrit 36.7 % (37.0-47.0); Hemoglobin 12.0 g/dl (12.0-16.0); Imm Gran Abs Auto 0.02 X10*3/uL (0.00-0.03); Imm Gran Pct Auto 0.2 % (0.0-0.4); Lymphocytes Absolute Auto 2.4 X10*3/uL (1.2-4.9); Mean Corpuscular HGB Conc 32.7 g/dl (31.0-35.0); Mean Corpuscular Hemoglobin 30.5 pg (27.0-33.0); Mean Corpuscular Volume 93.4 fL (80.0-98.0); NRBC Abs Auto 0.000 X10*3/uL (0.0-0.012); NRBC Pct Auto 0.0 /100WBC (0.0-0.2); Platelet Count 412 X10*3/uL (160-400); Red Blood Count 3.93 X10*6/uL (4.20-5.50); White Blood Count 8.1 X10*3/uL (4.8-10.8)
[2024-11-19 05:39] LABS: Anion Gap 13 (12-20); Blood Urea Nitrogen 7 mg/dL (9-16); Calcium 8.6 mg/dL (8.4-10.2); Carbon Dioxide 25 mmol/L (22-29); Chloride 106 mmol/L (96-108); Creatinine Clr Calc Pharmacy 75.0; Estimated Glomerular Filt Rate > 60; Potassium 3.7 mmol/L (3.3-5.1); Sodium 140 mmol/L (135-145)
--- NOTE | 2024-11-19 06:36 | PC.NURSE ---
Assumed care of pt at 1900. Pt awaiting Med Surg bed. Pt A&O x 3. Pt able to make needs known. NG tube hooked up to low wall suction. Meds administered per MAY. See flowsheets for more information. Pt ambulating to bathroom with 1 staff assist.?Call [place] in reach. All safety measures in place. Pt able to self reposition throughout the night.?
--- NOTE | 2024-11-19 07:39 | P.PNGS_ITS ---
Subjective Subjective Date of Service: 11/19/24 Interval history: No documented output of NGT since insertion but RN reports only 200cc. Patient feels improved this morning. Denies abd pain, nausea or vomiting. Bloating feels improved. She has passed flatus and had a bowel movement. Wants the NGT out. Physical Exam 2 Vital Signs: Vital Signs: Last Vital Signs Temp 98.6 F 11/19/24 04:00 Pulse 76 11/19/24 04:00 Resp 16 11/19/24 04:00 BP 137/61 11/19/24 04:00 Pulse Ox 98 11/19/24 04:00 O2 Del Method Room Air 11/19/24 04:00 BMI result Body Mass Index 25.3 Const: General: healthy appearing, comfortable, no acute distress and alert Orientation/consciousness: patient oriented x3 Resp: Effort & Inspection: normal respiratory effort GI: Other: lap band port site central mid abdomen abd very mildly distended, soft nontender Palpation (GI): no guarding Percussion: Yes normal to percussion Skin: General skin exam: no rashes or lesions noted Neuro: General: patient oriented x3 and moves all extremities Objective Data Active Medications Calcium Carbonate (Calcium Carbonate 750 Mg Tab.Chew) 750 mg PO Q4H PRN PRN Reason: Heartburn Heparin Sodium (Porcine) (Heparin Sodium,Porcine 5,000 Unit/Ml Vial) 5,000 unit SUBCUT Q12H [facility] Last Admin: 11/18/24 21:51 Dose: 5,000 unit Documented By: PRINCESS Hydromorphone HCl (Hydromorphone Hcl 0.5 Mg/0.5 Ml Syringe) 0.5 mg IVPUSH Q3H PRN; Protocol PRN Reason: Pain, Severe (Pain Scale 7-10) Last Admin: 11/18/24 12:23 Dose: 0.5 mg Documented By: MARIUSZ Dextrose/Lactated Ringer's (D5lr) 1,000 mls @ 125 mls/hr IVCONT .Q8H [facility] Last Admin: 11/19/24 04:11 Dose: 125 mls/hr Documented By: PRINCESS Acetaminophen (Ofirmev) 1,000 mg in 100 mls @ 400 mls/hr IV Q6H PRN PRN Reason: Pain, Mild (Pain Scale 1-3) Magnesium Hydroxide (Milk Of Magnesia 30 Ml Oral.Susp) 30 ml PO DAILY PRN PRN Reason: Constipation Ondansetron HCl (Ondansetron Hcl 4 Mg/2 Ml Vial) 4 mg IVPUSH QID PRN PRN Reason: Nausea Sodium Chloride (0.9 % Sodium Chloride Flush 3 Ml Syringe) 3 ml IVFLUSH QSHIFT CROW Last Admin: 11/19/24 00:05 Dose: Not Given Documented By: PRINCESS Non-Admin Reason: Previously Administered Labs 11/19/24 04:30 11/19/24 04:30 Labs: Laboratory Results - last 24 hr 11/19/24 04:30 MCV 93.4 MCH 30.5 MCHC 32.7 RDW 13.7 Plt Count 412 H MPV 10.1 Immature Gran % (Auto) 0.2 Neut % (Auto) 60.9 Lymph % (Auto) 29.8 [place] % (Auto) 6.9 Eos % (Auto) 1.7 Baso % (Auto) 0.5 Lymph # (Auto) 2.4 [place] # (Auto) 0.6 Eos # (Auto) 0.1 Baso # (Auto) 0.0 Abs Immat Gran (auto) 0.02 Absolute Neuts (auto) 4.9 Absolute Nucleated RBC 0.000 Nucleated RBC % (auto) 0.0 Anion Gap 13 Estim Creat Clear Calc 75.0 Estimated GFR > 60 Random Glucose 91 Calcium 8.6 D Procedures Date of Service Date of Service: 11/19/24 Progress Note: A&P Assessment and plan (1) Small bowel obstruction: Status: Acute Plan SBO appears to be resolved with return of GI function. Abd very benign. NGT had scant output and was removed. Will advance to clear liquids and then further as tolerated. Home when tolerating solid diet. Patient comfortable with plan. Time Spent With Patient Time: Total time managing care of this patient today ____ minutes. Quality Stroke Does the patient have a stroke diagnosis?: No VTE Prior VTE?: No VTE Risk Level:: Surgical - moderate VTE Device Contraindication: N/A - Device Ordered VTE Drug Contraindication: N/A - Med Ordered
[2024-11-19 08:00] VITALS: BP 139/78; PULSE 91; RESP 20; TEMP 36.5; O2SAT 96
--- NOTE | 2024-11-19 08:48 | P.CONGS_ITS ---
History of Present Illness Consult details Consult date: 11/19/24 Reason for consult: abdominal pain Narrative: 74-year-old female with a history of chronic pain secondary to osteoarthritis, chronic back pain, who was on chronic opiate therapy, presents with the abdominal pain. Patient states she developed significant central abdominal discomfort approximately 2 days ago.. Associated abdominal distention, passing minimal flatus from below, minimal bowel movement. Patient is started actively vomiting when she arrived to the emergency room. Denies fever. Evaluation in the emergency room revealed mild leukocytosis. She was evaluated by General surgery who recommended placement of NG tube for decompression. Consult was placed to bariatric surgery given her history of lap band placement 2004. Patient's surgical history consistent with gastric banding 2004 as well as history of laparoscopic cholecystectomy in 1989 laparoscopic appendectomy in 2013 laparoscopic hysterectomy in 2009. She has had recurrent small-bowel obstructions in 2021 and 2022. Both did not require surgical intervention. She is followed by [facility] and has an appointment with them this Sunday. Upon evaluation, patient had NG tube removed and she is feeling better. [facility] Past Medical History Medical History Osteoarthritis History of osteopenia Obesity (BMI 30.0-34.9) Prolapse of anterior vaginal wall Essential hypertension Dyslipidemia Irritable bowel syndrome Chronic pain syndrome Bilateral primary osteoarthritis of knee Spondylosis without myelopathy or radiculopathy, lumbar region Family History Family History Mother Diabetes mellitus Essential hypertension Cardiovascular disease Daughter Wernicke-Korsakoff syndrome (alcoholic) Surgical History Surgical History History of tonsillectomy History of hysterectomy History of carpal tunnel surgery History of cholecystectomy History of laparoscopic appendectomy History of lumbar laminectomy History of reduction mammoplasty H/O abdominoplasty Hx of bariatric surgery Social History Social History Household Members: None Household Members Other:: 0 Housing: House Do you presently have visiting nurse or other home services: No Alcohol intake: never Patient Tobacco Use Status: Former Tobacco user Smoked in Last 30 Days: No e-Cigarette/Vaping Use: Never Used Use of substances other than those prescribed or required for medical reasons: No Have you been hit, kicked, punched, or otherwise hurt by someone within the past year? If so, by whom?: No Advance Directives: Yes Advance Directives on File: Yes Advance Directives Date on File: 12/22/21 Do you have a plan to hurt others: No Plan Recently lost weight without trying: No Nutrition Risks: No Nutritional Risk Patient : No : No Poor oral hygiene: No service: No Current occupational status: retired Cognitive needs: No Hearing needs: No Vision needs: No Meds Allergies Allergy/AdvReac Type Severity Reaction Status Date / Time buprenorphine (Belbuca) Allergy Unknown stomach Verified 11/18/24 00:00 upset NSAIDS (Non-Steroidal Allergy Unknown Stomach Verified 11/18/24 00:00 Anti-Inflamma Upset Active Medications: Current Medications Calcium Carbonate (Calcium Carbonate 750 Mg Tab.Chew) 750 mg PO Q4H PRN PRN Reason: Heartburn Heparin Sodium (Porcine) (Heparin Sodium,Porcine 5,000 Unit/Ml Vial) 5,000 unit SUBCUT Q12H [facility] Last Admin: 11/18/24 21:51 Dose: 5,000 unit Hydromorphone HCl (Hydromorphone Hcl 0.5 Mg/0.5 Ml Syringe) 0.5 mg IVPUSH Q3H PRN; Protocol PRN Reason: Pain, Severe (Pain Scale 7-10) Last Admin: 11/18/24 12:23 Dose: 0.5 mg Dextrose/Lactated Ringer's (D5lr) 1,000 mls @ 125 mls/hr IVCONT .Q8H [facility] Last Admin: 11/19/24 04:11 Dose: 125 mls/hr Acetaminophen (Ofirmev) 1,000 mg in 100 mls @ 400 mls/hr IV Q6H PRN PRN Reason: Pain, Mild (Pain Scale 1-3) Magnesium Hydroxide (Milk Of Magnesia 30 Ml Oral.Susp) 30 ml PO DAILY PRN PRN Reason: Constipation Ondansetron HCl (Ondansetron Hcl 4 Mg/2 Ml Vial) 4 mg IVPUSH QID PRN PRN Reason: Nausea Sodium Chloride (0.9 % Sodium Chloride Flush 3 Ml Syringe) 3 ml IVFLUSH QSHIFT [facility] Last Admin: 11/19/24 00:05 Dose: Not Given Home Medications ?Medication ?Instructions ?Recorded ?Confirmed ?Last Taken ?Type estradiol 2 mg tablet (Estrace) 2 mg PO DAILY 07/12/20 11/18/24 11/17/24 History docusate sodium 100 mg capsule 200 mg PO DAILY 1 11/18/24 11/17/24 History (Colace) cholecalciferol (vitamin D3) 50 50 mcg PO BEDTIME 10/1711/18/24 11/16/24 History mcg (2,000 unit) tablet (Vitamin D3) magnesium 250 mg tablet 250 mg PO BEDTIME 01/29/24 0 11/18/24 11/16/24 History amitriptyline 25 mg tablet 25 mg PO BEDTIME 11/18/24 0 11/18/24 11/16/24 History igibhhpa-mrlmmze-tbmd-lutein tablet 1 tab PO DAILY 05/1311/18/24 11/17/24 History naloxegol 12.5 mg tablet (Movantik) 12.5 mg PO DAILY 0 11/18/24 11/18/24 11/17/24 History Physical Exam 2 Vital Signs: Vital Signs: Last Vital Signs Temp 98.6 F 11/19/24 04:00 Pulse 76 11/19/24 04:00 Resp 16 11/19/24 04:00 BP 137/61 11/19/24 04:00 Pulse Ox 98 11/19/24 04:00 O2 Del Method Room Air 11/19/24 04:00 BMI result Body Mass Index 25.3 Const: General: comfortable and no acute distress GI: Palpation (GI): Soft to palpation and not firm Results Labs 11/19/24 04:30 11/19/24 04:30 Labs: Abnormal lab results 11/19/24 Range/Units 04:30 RBC 3.93 L (4.20-5.50) X10*6/uL Hct 36.7 L (37.0-47.0) % Plt Count 412 H (160-400) X10*3/uL BUN 7 L (9-16) mg/dL Short CBC 11/19/24 Range/Units 04:30 WBC 8.1 (4.8-10.8) X10*3/uL Hgb 12.0 (12.0-16.0) g/dl Hct 36.7 L (37.0-47.0) % Plt Count 412 H (160-400) X10*3/uL BMP 11/19/24 04:30 Sodium 140 Potassium 3.7 Chloride 106 Carbon Dioxide 25 BUN 7 L Creatinine 0.59 Calcium 8.6 D Urine 11/18/24 Range/Units 02:41 Urine Color Yellow Urine Appearance Cloudy Urine pH 8.5 (5.0-9.0) Ur Specific [place] 1.010 (1.005-1.025) Urine Protein Negative (Neg-Trace) mg/dL Urine Glucose (UA) Negative (Negative) mg/dL All other labs normal. Imaging Abdomen CT scan report/results: report reviewed (1. Multiple dilated loops of proximal small bowel. The transition point appears to be within the right hemiabdomen with decompressed distal ileal loops. Findings are most consistent with a small-bowel obstruction. 2. Incidental note of a jejunojejunal intussusception, which is not the site of obs) and image reviewed Assessment and Plan (1) Small bowel obstruction: Status: Acute Consult placed to bariatric surgery by General surgery given patient's history of gastric banding with what appears to be excessive tubing from the port to the band traversing the bowel. There is no way to know if the tubing is a contributing factor to the recurrent small-bowel obstructions. Patient is followed by [facility] bariatric department and has an appointment with them this coming Sunday. As patient is showing clinical improvement, once she is able to be discharged, she should follow-up with [facility] bariatric, hopefully this Sunday. Additionally, recommendation would be to have the lap band removed electively. At the time of the procedure, she certainly can also have the bowel run to determine if there are any adhesions or if in fact the tubing was a contributing factor to the recurrent small-bowel obstructions. She certainly may follow-up in our clinic if she wishes however she states that she plans to keep her appointment with [facility]. Thank you very much for allowing us to participate in the care of your patient. Plan Patient examined and case discussed with Dr. Arizmendi. Procedures Date of Service Date of Service: 11/19/24
--- NOTE | 2024-11-19 09:38 | MHC.CM.PN ---
CM met with Patient at bedside, in the ED, and addressed IMM with her, providing Patient with the original and a copy will be placed on the chart. Patient lives alone in a house and she required no services nor DME PCI SECURITY CONSULTANT. Home/self care is Patient's goal and CM has initiated and will follow for dc planning. PCP is Dr. Marquez and Son/HCP/Ta will transport to home at dc.
[2024-11-19 14:50] VITALS: BP 140/81; PULSE 88; RESP 16; TEMP 37.3; O2SAT 98
[2024-11-19 19:31] VITALS: BP 117/63; PULSE 89; RESP 18; TEMP 36.4; O2SAT 95
[2024-11-19 20:00] VITALS: BP 126/70; PULSE 110; RESP 18; TEMP 36.4; O2SAT 91
[2024-11-19] MEDS: 0.9 % Sodium Chloride Flush 3 ML SYRINGE IVFLUSH (23:47)
[2024-11-20 04:00] VITALS: BP 95/56; PULSE 98; RESP 19; TEMP 36.6; O2SAT 93
--- NOTE | 2024-11-20 06:49 | PM.PNGS ---
Subjective Subjective Date of Service: 11/20/24 <[facility] Last Filed: 11/20/24 06:55> 11/20/24 <Yesy Bowen PA-C - Last Filed: 11/20/24 08:24> Interval history: The patient is a 74 y/o woman PMH LAP band surgery admitted for small bowel obstruction HD2. Today, she is feeling well. She denies abdominal pain. She had a small, semi-formed BM last night and has been passing gas. She is tolerating a CLD without N/V. She has been ambulating. She has been having urinary frequency w/o dysuria. She denies fever, chills, chest pain, SOB. <[facility] Filed: 11/20/24 06:55> Physical Exam Vital Signs: Vital Signs: Last Vital Signs Temp 97.8 F 11/20/24 04:00 Pulse 98 11/20/24 04:00 Resp 19 11/20/24 04:00 BP 95/56 L 11/20/24 04:00 Pulse Ox 93 11/20/24 04:00 O2 Del Method Room Air 11/20/24 04:00 BMI result Body Mass Index 25.3 <[facility] Filed: 11/20/24 06:55> Const: General: cooperative, comfortable, no acute distress, alert and awake <[facility] Filed: 11/20/24 06:55> Orientation/consciousness: patient oriented x3 <[facility] Filed: 11/20/24 06:55> GI: Inspection: Yes normal to inspection, No distended, No incision and No visible herniation <[facility] Filed: 11/20/24 06:55> Palpation (GI): Soft to palpation, nontender, no guarding, not rigid and no splenomegaly <[facility] Filed: 11/20/24 06:55> Percussion: Yes normal to percussion <[facility] Filed: 11/20/24 06:55> Auscultation: normal bowel sounds <[facility] Filed: 11/20/24 06:55> Neuro: General: patient oriented x3 <[facility] Filed: 11/20/24 06:55> General: moves all extremities <Yesy Bowen PA-C - Last Filed: 11/20/24 08:24> Objective Data Active Medications Amitriptyline HCl (Amitriptyline Hcl 25 Mg Tablet) 25 mg PO BEDTIME [facility] Last Admin: 11/19/24 20:48 Dose: 25 mg Documented By: CISCO Amitriptyline HCl (Amitriptyline Hcl 50 Mg Tablet) 50 mg PO BEDTIME [facility] Last Admin: 11/19/24 20:48 Dose: 50 mg Documented By: CISCO Atorvastatin Calcium (Atorvastatin Calcium 20 Mg Tablet) 20 mg PO DAILY [facility] Last Admin: 11/19/24 10:46 Dose: 20 mg Documented By: ARNAV Calcium Carbonate (Calcium Carbonate 750 Mg Tab.Chew) 750 mg PO Q4H PRN PRN Reason: Heartburn Estradiol (Estradiol 0.5 Mg Tablet) 2 mg PO DAILY [facility] Last Admin: 11/19/24 10:45 Dose: 2 mg Documented By: ARNAV Heparin Sodium (Porcine) (Heparin Sodium,Porcine 5,000 Unit/Ml Vial) 5,000 unit SUBCUT Q12H [facility] Last Admin: 11/19/24 20:48 Dose: 5,000 unit Documented By: CISCO Hydrochlorothiazide (Hydrochlorothiazide 12.5 Mg Tablet) 12.5 mg PO DAILY [facility]; Protocol Last Admin: 11/19/24 10:45 Dose: 12.5 mg Documented By: ARNAV Hydromorphone HCl (Hydromorphone Hcl 0.5 Mg/0.5 Ml Syringe) 0.5 mg IVPUSH Q3H PRN; Protocol PRN Reason: Pain, Severe (Pain Scale 7-10) Last Admin: 11/18/24 12:23 Dose: 0.5 mg Documented By: MARIUSZ Acetaminophen (Ofirmev) 1,000 mg in 100 mls @ 400 mls/hr IV Q6H PRN PRN Reason: Pain, Mild (Pain Scale 1-3) Magnesium Hydroxide (Milk Of Magnesia 30 Ml Oral.Susp) 30 ml PO DAILY PRN PRN Reason: Constipation Ondansetron HCl (Ondansetron Hcl 4 Mg/2 Ml Vial) 4 mg IVPUSH QID PRN PRN Reason: Nausea Sodium Chloride (0.9 % Sodium Chloride Flush 3 Ml Syringe) 3 ml IVFLUSH QSHIFT [facility] Last Admin: 11/19/24 23:47 Dose: 3 ml Documented By: DANIEL Trazodone HCl (Trazodone Hcl 100 Mg Tablet) 100 mg PO BEDTIME [facility] Last Admin: 11/19/24 20:48 Dose: 100 mg Documented By: CISCO <[facility] Last Filed: 11/20/24 06:55> Labs CBC & Chem 7: 11/19/24 04:30 11/19/24 04:30 <[facility] Last Filed: 11/20/24 06:55> Procedures Date of Service Date of Service: 11/20/24 <[facility] Last Filed: 11/20/24 06:55> 11/20/24 <Yesy Bowen PA-C - Last Filed: 11/20/24 08:24> Progress Note: A&P Assessment and plan (1) Small bowel obstruction: Status: Resolved <[facility] Last Filed: 11/20/24 06:55> Assessment and Plan: The patient is a 74 y/o woman with a history of lap band surgery who was admitted with an SBO and has since improved. Today, she has no acute complaints and her presenting symptoms have resolved. PLAN: Advance diet to solids Continue ambulating Use spirometry 10x per hour Consider discharge if diet is tolerated Pt plans to f/u with bariatric surgery for lap band removal <[facility] Last Filed: 11/20/24 06:55> The patient is a 74 y/o woman admitted with an SBO and has since improved. Today, she has no acute complaints and her presenting symptoms have resolved. PLAN: Advance diet to solids Continue ambulating Use spirometry 10x per hour Consider discharge if diet is tolerated Pt plans to f/u with bariatric surgery for lap band removal Agree with above assessment and plan by Kirstin MS-3. SBO resolved- now tolerating clear liquids with good GI function. Abd remains benign. Will advance to solid diet and if tolerating, stable for dc to home today. Patient comfortable with plan. <Yesy Bowen PA-C - Last Filed: 11/20/24 08:24> Time Spent With Patient Time: Total time managing care of this patient today ____ minutes. <[facility] Filed: 11/20/24 06:55> Quality Stroke Does the patient have a stroke diagnosis?: No <[facility] Filed: 11/20/24 06:55> VTE Prior VTE?: No <[facility] Filed: 11/20/24 06:55> VTE Risk Level:: Surgical - moderate <[facility] Filed: 11/20/24 06:55> VTE Device Contraindication: N/A - Device Ordered <[facility] Filed: 11/20/24 06:55> VTE Drug Contraindication: N/A - Med Ordered <[facility] Filed: 11/20/24 06:55>
[2024-11-20 07:57] VITALS: BP 113/61; PULSE 84; RESP 18; TEMP 36.2; O2SAT 96
[2024-11-20] MEDS: 0.9 % Sodium Chloride Flush 3 ML SYRINGE IVFLUSH (08:27)
--- NOTE | 2024-11-20 10:49 | MHC.CM.PN ---
Patient medically cleared for dc home self care via private transport
--- NOTE | 2024-11-20 13:36 | PM.DS ---
DS: Providers Provider Date of Service: 11/20/24 Date of admission: 11/18/24 08:41 Date of discharge: 11/20/24 Primary care physician: Debbi Marquez MD Attending physician on admission: Howie White Consults: 11/18/24 12:39 Consult to Bariatric Surgery Routine Consulting Provider: [facility] Reason for consultation: Prior lap band, possible migration Attending physician on discharge: Howie White DS: Diagnosis Discharge Diagnosis (1) Small bowel obstruction: Status: Resolved DS: Summary Hospital Course Hospital Course: HPI AT ADMISSION: Leandra Galvez is a 74 year old female with a previous history of lap band, now on GLP-1, presenting with complaints of abdominal pain, nausea and vomiting. She reports a prior history of small-bowel obstructions most recently in 2022 which required nasogastric tube decompression. She reports that the symptoms started several hours after eating corn on the cob at home. She waited several hours but noted the pain to increase in severity therefore presented to the emergency department for further evaluation. A CT abdomen and pelvis was obtained which confirmed dilated loops of small bowel with a transition point consistent with small-bowel obstruction. HOSPITAL COURSE: She was admitted to the surgical service for further management of the small bowel obstruction. Nonoperative measures were employed with bowel rest with nasogastric tube decompression and IV fluids. Bariatric surgery was consulted for recommendations regarding the lap band which seems to have moved proximally. She improved clinically and had scant NGT output the following day with resolution of her symptoms. She began to pass flatus and move her bowels. Her NGT was removed and she was advanced to clear liquids. Given her improvement, bariatric surgery recommended outpatient f/u with [facility] bariatric for lap band removed electively. Her diet was advanced to solids. On the day of discharge, she felt well and was tolerating a solid diet without nausea or vomiting. She had good GI function. She was hemodynamically stable. Her abdomen was benign. She felt ready for discharge. She was discharged to home on 11/20/24 in stable condition. She is to follow up with [facility] Bariatrics. Status at Discharge Functional status at discharge: independent ambulation Overall status at discharge: patient is back to baseline Time Attestation Discharge Coordination Time (in mins): 25 Quality: Safe Use of Opioids Does Pt have an Active Cancer Diagnosis on the Problem List?: No Quality: Stroke Does the patient have a stroke diagnosis?: No Physical Exam Vital Signs: Vital Signs: Last Vital Signs Temp 97.2 F 11/20/24 07:57 Pulse 84 11/20/24 07:57 Resp 18 11/20/24 07:57 BP 113/61 11/20/24 07:57 Pulse Ox 96 11/20/24 07:57 O2 Del Method Room Air 11/20/24 07:57 BMI result Body Mass Index 25.3 Const: Orientation/consciousness: patient oriented x3 Resp: Effort & Inspection: normal respiratory effort GI: Inspection: No distended Palpation (GI): Soft to palpation and nontender Skin: General skin exam: no rashes or lesions noted Neuro: General: patient oriented x3 Discharge Plan Discharge Anticipated Discharge Date/Time: 11/20/24 10:33 Patient Disposition: Home, Self-Care Discharge Diagnosis: SBO Referrals: Debbi Marquez MD [Primary Care Provider, Internal Medicine] - 2 Weeks Discharge Medications: Continued hydrochlorothiazide 12.5 mg tablet 12.5 mg PO DAILY Qty: 90 3RF trazodone 100 mg tablet 100 mg PO BEDTIME Qty: 90 3RF atorvastatin 20 mg tablet 20 mg PO DAILY Qty: 90 4RF amitriptyline 25 mg tablet 25 mg PO BEDTIME Movantik 12.5 mg tablet 12.5 mg PO DAILY Rx Instructions: must be taken on empty stomach; no food 1 hr after or 2-3 hrs before dose ypzqhbqb-uoedbkp-evvw-lutein Tablet 1 tab PO DAILY cholecalciferol (vitamin D3) [Vitamin D3] 50 mcg (2,000 unit) Tablet 50 mcg PO BEDTIME estradiol [Estrace] 2 mg tablet 2 mg PO DAILY docusate sodium [Colace] 100 mg capsule 200 mg PO DAILY magnesium 250 mg tablet 250 mg PO BEDTIME oxycodone 5 mg tablet 5 mg PO BID PRN (Reason: pain) 30 Days Qty: 60 0RF Rx Instructions: Partial Fill upon patient request. naloxone [Narcan] 4 mg/actuation spray,non-aerosol 4 mg intranasal Q2M PRN (Reason: opioid overdose) Qty: 2 0RF Rx Instructions: spray 1 dose into ONE nostril; alternate nostrils w each dose until help arrives amitriptyline 50 mg tablet 50 mg PO BEDTIME 90 Days Qty: 90 0RF Rx Instructions: 1 tab daily at bedtime Discharge Orders: Discharge Order (Routine); Ordered 11/20/24 Ordered By: Howie White Diet: Advance to usual diet Activity on Discharge: As tolerated Stand Alone Forms: Patient Portal Discharge page Print Language: Korean Activity Restrictions/Additional Instructions: Follow up with your PCP. Follow up with your bariatric surgeon. Call Your Doctor If: ? ? -Your temperature exceeds 101.5? F? ? ? -You experience excessive abdominal pain or swelling ? ? -You have an unexpected reaction to medication ? ? -You experience continued vomiting/nausea and are unable to tolerate oral intake Care Plan Goals: Return to baseline health and resume normal activities. Health Concerns: SBO Plan of Treatment: conservative with NGT decompression, slow advancement of diet F/u with PCP, bariatric surgery at [facility] for lap band management Assessment: Improved
[2024-11-20 13:50] VITALS: BP 133/68; PULSE 93; RESP 16; TEMP 36.8; O2SAT 95
--- NOTE | 2024-11-21 14:02 | P.CDIM_ITS ---
PROVIDER RESPONSE TEXT: To clarify, the appropriate diagnosis supported by the clinical indicators: Partial SBO QUERY TEXT: PHYSICIAN'S DOCUMENTATION REQUEST Date of Query: 11/19/2024 08:54 AM EDT Patient Name: Leandra Galvez Admit Date: 11/18/2024 Dear Howie White MD, A review of the medical record indicates additional documentation may be needed. Please review below and update the documentation accordingly. Clinical Indicators: patient admitted with SBO as per CT treated with NG tube, bowel rest, IVF Based on the above, could you clarify the appropriate diagnosis, if significant, that supports the above abnormalities and additional evaluation, monitoring, and/or treatment rendered: Partial SBO Complete SBO Other (explain) Clinically unable to determine (explain) Thank you, Shaista Sims RN Use of terms such as suspected, likely, concern for, or probable (associated with a specific diagnosis that is being evaluated, monitored, or treated as if it exists) are acceptable and can be coded in the inpatient setting, when documented at the time of discharge. Please use your independent medical judgment in providing your response. THIS QUERY IS PART OF THE PERMANENT MEDICAL RECORD
== END 2024-11-20 14:31 | disposition home or self-care (01) | DRG 394 ==
LOC: HO.ED 11-18 08:26 → HO.EDOVER 11-18 08:44 → HO.S3 11-19 19:24
PROVIDERS: Admitting Provider Surgery; Emergency Provider Emergency Medicine; PCP Internal Medicine; Visit Provider Surgery
DX: K95.09 Other complications of gastric band procedure (principal); K56.600 Partial intestinal obstruction, unspecified as to cause; G89.29 Other chronic pain; Z87.891 Personal history of nicotine dependence; Z79.891 Long term (current) use of opiate analgesic; Z79.899 Other long term (current) drug therapy; Z98.84 Bariatric surgery status
CPT/HCPCS: 36415; 71045; 74177; 80048; 81001; 83690; 85025; 99285; J1171; J1644; J2270; J2405; J7120; Q9967

== ENCOUNTER → 2024-11-18 05:55 | Outpatient (BNV) | payer MEDICARE, OTHER, SELFPAY | PROVIDERS: Admitting Provider Surgery; Emergency Provider Emergency Medicine; Visit Provider Radiology Vascular & Interventional Radiology | DX: J98.11 Atelectasis (principal) | CPT/HCPCS: 71045 ==

== ENCOUNTER → 2024-11-18 08:41 | Outpatient (BNV) | payer MEDICARE, OTHER, SELFPAY | PROVIDERS: Admitting Provider Surgery; Emergency Provider Emergency Medicine; Visit Provider Physician Assistant Surgical | DX: K56.609 Unspecified intestinal obstruction, unspecified as to partial versus complete obstruction (principal) | CPT/HCPCS: 99222 ==

== ENCOUNTER → 2024-11-18 08:41 | Outpatient (BNV) | payer MEDICARE, OTHER, SELFPAY | PROVIDERS: Admitting Provider Surgery; Emergency Provider Emergency Medicine; Visit Provider Surgery | DX: K56.609 Unspecified intestinal obstruction, unspecified as to partial versus complete obstruction (principal) | CPT/HCPCS: 99222; 99232; 99499 ==

== ENCOUNTER 2024-11-24 08:10 | Outpatient (AMB) | payer MEDICARE, OTHER, SELFPAY ==
--- OUTSIDE RECORDS SUMMARY | 2023-08-10 08:23 | XMS_ITS | Continuity of Care Document ---
Author Organization [facility] Address [address] MD Michael [address] Phone Care Team Providers Care Panel Edge Painter Name Role Phone Navdeep IVORY, RVT, RPVI, [...] Diagnoses Date Provider Providers Copied on Encounter [place] [facility] MD WETZEL, [address] [place] [address] Dr Valenzuela 1000Suite 1000Michael MD, [id number], tel:[phone] CVR - [place] No Information 4 Navdeep IVORY RVT, CAROLA Mike. [address] [place] [address], [facility] [place] [id number] , [place]. tel:[phone] Office/Outpt E&M Established 15 Mins- [place] & [place] [facility] MD WETZEL, [address] [place] [address] Dr Valenzuela 1000SuMichael toure MD, [id number], [place] tel:[phone] CV[place] - [place] Lymphedema, not elsewhere classifiedCramp and spasmRestless legs syndrome 4 Navdeep IVORY RVT, CAROLA Mike. [address] [place] [address], [place], [place], [id number] , [place]. tel:[phone] Referring Provider: Debbi Garcia, [address] [place] [address], [address]. tel:[phone] [place] [facility] MD WETZEL, [address] [place] [address] Dr Valenzuela 1000Suite Michael Sanchez MD, [id number], [place] tel:[phone] CVR - [facility] Chronic venous hypertension (idiopathic) with other complications of bilateral lower extremity 4 Navdeep IVORY RVT, CAROLA Mike. [address] [facility], [address], [facility] [place], [id number] , [place]. tel:[phone] Referring Provider: Debbi Garcia, [address] [facility] [address] [place], [address]. tel:[phone] [facility], [address] [place] [address] Dr Valenzuela 1000Suite 1000Michael [place], [id number], [place] tel:[phone] CVR - [facility] Encounter for follow-up examination after completed treatment for conditions other than malignant nePain in left leg Apr-0 4 Navdeep IVORY RVT, CAROLA Mike. [address] [facility], [address], [place], [place], [id number] , [place]. tel:[phone] Referring Provider: Debbi Marquez MD Jose, [address] [place] [address], [address]. tel:[phone] [facility], [address] [place] [address] Dr Valenzuela 1000Suite 1000Michael MD, [id number], [place] tel:[phone] CVR [facility] Varicose veins of left lower extremity with other complications Apr-0 4 Lucila Reese . [address] [place] [address], [place], [place], [id number] , [place]. [phone] Referring Provider: Debbi Marquez MD Jose, [address] [place] [address], [address]. tel:[phone] [facility], [address] [place] [address] Dr Valenzuela 1000Suite 1000Michale [place], [id number], [place] tel:[phone] CVR - [facility] Encounter for follow-up examination after completed treatment for conditions other than malignant nePain in right leg Apr-0 4 Navdeep IVORY RVT, CAROLA Mike. [address] [place] [address], [place], [place], [id number] , [place]. [phone] Referring Provider: Debbi Garcia, [address] [place] [address], [address]. tel:[phone] [facility], [address] [place] [address] Dr Valenzuela 1000Suite 1000Michael [place], [id number], [place] tel:[phone] CVR - [place] Chronic venous hypertension (idiopathic) with inflammation of right lower extremity May-2 4 Navdeep IVORY RVT, CAROLA Mike. [address] [facility], [facility] [address], [place], [place], [id number] , [place]. tel:[phone] Referring Provider: Debbi Garcia, [address] [place] [address], [address]. tel:[phone] Office/Outpt E&M Established 25 Mins Roberto [facility], [address] [place] [address] Dr Valenzuela 1000Suite 1000Michael MD, [id number], [place] tel:[phone] [place] - [place] Chronic venous hypertension (idiopathic) with other complications of bilateral lower extremityPain in left lower legPain in right legPain in left legRestless legs syndromeVenous insufficiency (chronic) (peripheral)Lye Bath Operator mp and spasmLocalized edema May- 4 Navdeep IVORY RVT, CAROLA Mike. [address] [facility], [facility] [address], [place], [place], [id number] , [place]. [phone] Referring Provider: Debbi Garcia, [address] [place] [address], [address]. tel:[phone] [facility], [address] [place] [address] Dr Valenzuela 1000Suite 1000Michael [place], [id number], [place] tel:[phone] CVR - [facility] Chronic venous hypertension (idiopathic) with other complications of bilateral lower extremity May- 4 Navdeep IVORY RVT, RPVI Robert. [address] [facility], [address], [place], [place], [id number] , [place]. tel:[phone] Referring Provider: Debbi Garcia, [address] [place] [address] [place], [address]. tel:[phone] Office/Outpt E&M Established 15 Mins [facility], [address], [place] Michael, [id number], [place] tel:[phone] [place] - [place] Body mass index (BMI) 33.0-33.9, adultChronic venous htn w oth comp of bilateral low extrm 3 Jose IVORY FACS RVT RPVI Deangelo Nicole. [address] [facility], [address], [place], [address], [place]. tel:[phone] Referring Provider: Deangelo Garcia MD FACS RVT RPVI, [address] [facility] [address], [place], [address]. tel:[phone] Family History Family Member Type Diagnosis Age At Onset No Information Payers Payer name Insurance type Covered democrat ID Authoriza tion(s) Medicare MARCO ANTONIO MEDINA [id number] [facility] [id number] Social History Type Description Quantity Date Captured [...]
--- OUTSIDE RECORDS SUMMARY | 2024-03-20 05:00 | XMS_ITS ---
Author Organization [facility] Address [address] [place] [address] Care Team Providers Care Productivity Engineer Name Role Phone Alma IVORY, Debbi Garcia Primary Care Provider Un available Rtana Chua Unavailable [phone] Encounters Encounter Location Date Provider Diagnosis [facility] [address] [place] [address] 03/20/2024 Ratna Chua Plan Of Treatment Next Appt Details Provider Name:Ratna Lopez ker, 12/31/2024 09:15:00 AM, [address] [place], [address], Progress Notes * OLGA Leandra ADOB: [birth year] (74 yo F)Acc No.[id number]:03/20/2024 Progress Note Patient: Leandra HURTADO Provider: Kvng Chua DPM :1950 A ge:73 Y S ex:Female Date:03/20/2024 Address:[address] [place] [address] Pcp:Wilberto Cook Subjective: * Chief Complaints: * [...] 0 03/20/2024 Generated for Yissel patel/Luca/Han on: 0 11/24/2024 08:58 AM EDT
--- OUTSIDE RECORDS SUMMARY | 2024-07-24 05:00 | XMS_ITS ---
Author Organization [facility] Address [address] [place] [address] Care Team Providers Care Software Sales Representative Name Role Phone Alma IVORY, Debbi Garcia Primary Care Provider Un available Ratna Chua Unavailable [phone] Encounters Encounter Location Date Provider Diagnosis [facility] [address] [place] [address] 07/24/2024 Ratna Chua Plan Of Treatment Next Appt Details Provider Name:Ratna Lopez ker, 12/31/2024 09:15:00 AM, [address] [place], [address], Progress Notes * OLGA Leandra ADOB: [birth year] (74 yo F)Acc No.[id number]:07/24/2024 Progress Note Patient: Leandra HURTADO Provider: Kvng Chua DPM :1950 A ge:73 Y S ex:Female Date:07/24/2024 Address:[address] [place] [address] Pcp:Wilberto Cook Subjective: * Chief Complaints: * [...] 07/24/2024 Generated for Yissel patel/Luca/Han on: 0 11/24/2024 08:58 AM EDT
--- OUTSIDE RECORDS SUMMARY | 2024-09-08 11:45 | XMS_ITS ---
Author Organization [facility] Address [address] [place] [address] Care Team Providers Care Fur Dyer Name Role Phone Alma IVORY, Debbi Garcia Primary Care Provider Un available Ratna Chua Unavailable [phone] Allergies Allergen (clinical drug ingredient) Drug/Non Drug [...] Active Encounters Encounter Location Date Provider Diagnosis [facility] [address] [address] 09/08/2024 Ratna Chua Plan Of Treatment Next Appt Details Provider Name:Ratna Jessica boyd, 12/31/2024 09:15:00 AM, [address] [place], [address], Progress Notes * Leandra ESPINOZA ADOB: [birth year] (74 yo F)Acc No.[id number]:09/08/2024 Progress Note Patient: Leandra HURTADO Provider: Kvng Chua DPM :1950 A ge:73 Y S ex:Female Date:09/08/2024 Address:[address] [place], [place] [phone] Pcp:Wilberto Cook Subjective: * Chief Complaints: * [...] 09/08/2024 Generated for Yissel patel/Luca/Han on: 0 11/24/2024 08:57 AM EDT
[2024-11-24 08:16] VITALS: BP 138/80; PULSE 85; RESP 16; O2SAT 99; BMI 24.9
--- NOTE | 2024-11-24 08:16 | A.OFFPC_ITS ---
Vital Signs 11/24/24 08:16 Height 5 ft 2 in Weight 136 lb BMI 24.9 BP 138/80 Blood Pressure Location Lt brachial Position Sitting Respiration 16 Pulse 85 Pulse Source Pulse Oximeter Pulse Oximetry (%) 99 Oxygen Delivery Method Room Air Comment patient refused to obtain temp. Intake Visit Reasons: TCM/ Bowel obstruction Intake Note: Pt is here today for her TCM to f/u on her bowel obstruction Allergies buprenorphine (Belbuca) Allergy (Unknown, Verified 11/30/24 01:45) stomach upset NSAIDS (Non-Steroidal Anti-Inflamma Allergy (Unknown, Verified 11/30/24 01:45) Stomach Upset Medication List - Last Reconciled 11/24/24 by Debbi Marquez MD amitriptyline 25 mg PO BEDTIME amitriptyline 50 mg PO BEDTIME 90 days atorvastatin 20 mg PO DAILY cholecalciferol (vitamin D3) (Vitamin D3) 50 mcg PO BEDTIME docusate sodium (Colace) 200 mg PO DAILY estradiol (Estrace) 2 mg PO DAILY hydrochlorothiazide 12.5 mg PO DAILY magnesium 250 mg PO BEDTIME frlktvfe-vsqzsmk-lwuk-lutein 1 tab PO DAILY naloxegol (Movantik) 12.5 mg PO DAILY naloxone 4 mg/actuation (Narcan) 4 mg intranasal Q2M PRN oxycodone 5 mg PO BID PRN 30 days semaglutide mg subcut trazodone 100 mg PO BEDTIME Tobacco use date assessed: 04/17/23 Dental Screening Dental Screen Date: 04/17/23 HPI TCM/ Bowel obstruction HPI Details - The patient is a 74-year-old female pr esenting for a TCM after recent hospital for small-bowel obstruction. -she had lap band surgery 20 years ago, which is suspected to have migrated, causing bowel obstruction. She had an appointment with a bariatric center, which was rescheduled due to hospitalization. The patient plans to have the lap band removed. - The patient reports a sensation of ech oing in her right ear, diagnosed as a patulous eustachian tube. She has been advised to use saline nasal spray and is undergoing allergy testing and audiology evaluation. - Lymphedema: The patient has early-stag e lymphedema, managed with compression therapy. She has had multiple abdominal surgeries, which has contributed to lymphatic drainage issues. - Bowel obstruction: The patient experie nced bowel obstruction, possibly related to lap band migration and semaglutide use. She is considering elective surgery to remove the lap band. - Weight loss: The patient has lost 50 p ounds over the past year, attributed to semaglutide use. This sudden weight loss may have contributed to her eustachian tube dysfunction. - Opioid-induced constipation: The patie nt is on oxycodone for back pain, which has led to constipation. She has been prescribed Movantik which has been helping regulate bowel movements -- Flu vaccination scheduled for December 31. - Colonoscopy scheduled for December 11 or . - Regular pain management visits for javier k pain. TCM TCM Information Date of Discharge 11/20/24 Discharged From [facility] Interactive Contact Date (Reference documentation from this date) 11/21/24 [facility] Medical History Small bowel obstruction Abdominal pain Osteoarthritis History of osteopenia Obesity (BMI 30.0-34.9) Prolapse of anterior vaginal wall Essential hypertension Dyslipidemia Irritable bowel syndrome Chronic pain syndrome Bilateral primary osteoarthritis of knee Spondylosis without myelopathy or radiculopathy, lumbar region Surgical History History of tonsillectomy History of hysterectomy History of carpal tunnel surgery History of cholecystectomy History of laparoscopic appendectomy History of lumbar laminectomy History of reduction mammoplasty H/O abdominoplasty Hx of bariatric surgery Family History Mother Diabetes mellitus Essential hypertension Cardiovascular disease Daughter Wernicke-Korsakoff syndrome (alcoholic) Social History Household Members: None Household Members Other:: 0 Housing: House Do you presently have visiting nurse or other home services: No Alcohol intake: never Patient Tobacco Use Status: Former Tobacco user e-Cigarette/Vaping Use: Never Used Advance Directives Date on File: 12/22/21 service: No Current occupational status: retired Cognitive needs: No Hearing needs: No Vision needs: No Questionnaire PHQ-9 Over the last 2 weeks, how often have you been bothered by any of the following problems? 1. Little interest or pleasure in doing things: not at all 2. Feeling down, depressed, or hopeless: not at all 3. Trouble falling or staying asleep, or sleeping too much: not at all 4. Feeling tired or having little energy: not at all 5. Poor appetite or overeating: not at all 6. Feeling bad about yourself - or that you are a failure or have let yourself or your family down: not at all 7. Trouble concentrating on things, such as reading the newspaper or watching television: not at all 8. Moving or speaking so slowly that other people could have noticed. Or the opposite - being so fidgety or restless that you have been moving around a lot more than usual: not at all 9. Thoughts that you would be better off or of hurting yourself in some way: not at all Total score: 0 Depression Screening Interpretation: Negative Depression Screening Done: Yes 54063 - PHQ-9 Billing: Yes Source: Developed by Drs. Rashid Woodward, Carmenza Hdez, Landry Jackson and colleagues, with an educational ir[place] from [employer]. Thrive Questionnaire Date Thrive assessed: 11/19/24 I am a: Patient What is your living situation today?: I have a steady place to live Within the past 12 months, did the food you bought not last and you didn't have the money to get more?: Never true Within the past 12 months, did you worry whether your food would run out before you got money to buy more?: Never true Do you have trouble paying for medicines?: No Do you have trouble getting transportation to medical appointments?: No Do you have trouble paying your heating and electricity bill?: No Do you have trouble taking care of your child, family member or friend?: No Do you have trouble with day-to-day activities such as bathing, preparing meals, shopping, managing finances, etc.?: No Are you currently unemployed and looking for a job?: No Are you interested in more education?: No Please select the resources that you would like help with: None Currently or been in a relationship where the following occur: No concerns reported THRIVE Score: 0 AUDIT C Alcohol Use Questionnaire (AUDIT-C) 1. How often do you have a drink containing alcohol?: Never 3. How often do you have six or more drinks on one occasion?: Never Total Score: 0 CLAU-7 AMB Questionnaire CLAU-7 Date CLAU - 7 assessed: 11/24/24 Feeling nervous, anxious, or on edge: 0 = Not at all Not being able to stop or control worryin = Not at all Worrying too much about different things: 0 = Not at all Trouble relaxin = Not at all Being so restless that it is hard to sit still: 0 = Not at all Becoming easily annoyed or irritable: 0 = Not at all Feeling afraid as if something awful might happen: 0 = Not at all Total CLAU-7 score (0-4 normal; 5-9 mild; 10-14 moderate; 15-21 severe): 0 Source: Developed by Drs. Rashid Woodward, Carmenza Hdez, Landry Jackson and colleagues, with an educational irlanda from [employer]. Review of Systems Const All systems reviewed & are unremarkable except as noted in HPI and below ENT Reports no additional complaints Card Reports no additional complaints Resp Reports no additional complaints GI Denies abdominal pain, Denies melena, Denies bloating, Denies hematochezia, Denies change in bowel habits and Denies heartburn Physical exam (Primary Care) Vital Signs: Last Vital Signs Pulse 85 11/24/24 08:16 Resp 16 11/24/24 08:16 BP 138/80 11/24/24 08:16 Pulse Ox 99 11/24/24 08:16 Oxygen Delivery Method Room Air 11/24/24 08:16 BMI result Body Mass Index 24.9 Tobacco/Smoking Status: Tobacco use Status Tobacco use date assessed 04/17/23 11/24/24 08:24 Patient Tobacco Use Status Former Tobacco user 11/24/24 08:24 e-Cigarette/Vaping Use Never Used 11/24/24 08:24 PHQ-9: PHQ-9 Score PHQ-9: Total score 0 11/24/24 09:16 Depression Screening Interpretation: Negative Thrive Assessment: Date of Thrive Assessment Date Thrive assessed 11/19/24 11/24/24 08:24 Currently or been in a relationship where the following occur: No concerns reported Const General: comfortable, no acute distress and Physically active Nutritional Appearance: obese Orientation/consciousness: patient oriented x3 HENMT Head: Yes atraumatic Ears: hearing grossly normal bilaterally, external ears normal, TM's normal bilaterally and EAC's normal General nose exam: Normal external nose present Face and sinus: Yes sinuses nontender and Yes face symmetric Mouth: Normal oral and palatal mucosa present and moist mucous membranes Eyes General: appearance normal, both eyes and all related structures Neck Neck: Yes full ROM, Yes no lymphadenopathy and Yes supple Thyroid: Thyroid normal Resp Effort & Inspection: normal respiratory effort and able to speak in complete sentences Auscultation: clear to auscultation bilaterally Cardio Rate: regular rate Rhythm: regular rhythm Heart sounds: S1 normal heart sound present and S2 normal heart sound present GI Palpation (GI): Soft to palpation, nontender, no guarding and no masses Auscultation: normal bowel sounds Neuro General: patient oriented x3, moves all extremities and no focal motor deficits Gait exam (Neuro): Normal gait present Coding Level of Care Code TCM Mod MDM <= 7 Days Complex EM visit Add On G2211 Diagnoses Essential hypertension I10 Dyslipidemia E78.5 Postlaminectomy syndrome of lumbar region M96.1 Chronic pain syndrome G89.4 Lymphedema I89.0 Hx of small bowel obstruction Z87.19 Additional Codes PHQ-9 - 41408 - PHQ-9 Billing: Yes ([id number]) Assessment & Plan Assessment & Plan (1) Essential hypertension: Code(s): I10 - Essential (primary) hypertension Category: Medical (2) Dyslipidemia: Code(s): E78.5 - Hyperlipidemia, unspecified Category: Medical (3) Postlaminectomy syndrome of lumbar region: Code(s): M96.1 - Postlaminectomy syndrome, not elsewhere classified Category: Medical (4) Chronic pain syndrome: Code(s): G89.4 - Chronic pain syndrome Category: Medical Plan: Follow[facility], currently on oxycodone (5) Lymphedema: Code(s): I89.0 - Lymphedema, not elsewhere classified Category: Medical (6) Hx of small bowel obstruction: Code(s): Z87.19 - Personal history of other diseases of the digestive system Plan Patient was informed and verbally consented to the use of an ambient scribe for clinic note documentation during this visit. The patient is considering elective surgery to remove the lap band due to its suspected migration causing bowel obstruction. She has rescheduled her appointment with the bariatric center for further evaluation and management. The patient is advised to use saline nasal spray and is undergoing allergy testing and audiology evaluation to manage the patulous eustachian tube. The patient is managing early-stage lymphedema with compression therapy, which has been effective in reducing symptoms. The bowel obstruction is suspected to be related to lap band migration . The patient is considering elective surgery to remove the lap band to prevent future occurrences. The patient has lost 50 pounds over the past year using semaglutide, which may have contributed to her eustachian tube dysfunction. She is advised to continue monitoring her weight and adjust her medication as necessary. The patient is on oxycodone for back pain, which has led to constipation. She has been prescribed Movantik to manage this side effect and reports improvement since starting the medication.
--- OUTSIDE RECORDS SUMMARY | 2024-11-24 08:58 | XMS_ITS | Patient Health Record ---
Author Organization [facility] Address [address] [place] [address] Care Team Providers Care Video Game Designer Name Role Phone Alma IVORY, Debbi Garcia Primary Care Provider Un available Ratna Chua Unavailable [phone] Emanuel Crawford Unavailable [phone] Allergies Allergen (clinical drug ingredient) Drug/Non Drug [...] primary osteoarthritis of the ankle and/or foot (295315225) Primary osteoarthritis , left ankle and foot (M19.072) Active confirmed Problem Acquired hallux valgus (23615832) Hallux valgus (acquired), left foot (M20.12) Active confirmed Problem Acquired hammer toe of left foot (0584760577738601) Other hammer toe(s) (acquired), left foot (M20.42) Active confirmed Problem Lymphedema (50550938) Lymphedema (I89.0) Active confirmed Problem Left metatarsus adductus (disorder) (27740852043080200 ) 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 Vital Signs Blood pressure diastolic 65 mm Hg 09/08/2024 Height 5ft2in in 09/08/2024 Blood pressure systolic 128 mm Hg 09/08/2024 Weight 150 lbs 09/08/2024 BMI 27.43 kg/m2 09/08/2024 Procedures Procedure Date Ordered Date Performed Result Body Sit e , B8553-CYMON/INJECT, JOINT/BURSA 03/20/2024 N/A , N3169-AZSXD/INJECT, JOINT/BURSA 09/08/2024 N/A Encounters Encounter Location Date Provider Diagnosis [address] [address] 11/29/2023 Emanuel Crawford Pain in left foot M79.672 ; Primary osteoarthritis, left ankle and foot M19.072 ; Metatarsalgia, left foot M77.42 ; 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 ; Other hammer toe(s) (acquired), left foot M20.42 ; Peroneal tendinitis of left lower extremity M76.72 ; Hallux valgus (acquired), left foot M20.12 and Lymphedema I89.[address] [address] 03/20/2024 Ratna Chua Sinus tarsitis of left foot M25.[address] [address] 09/08/2024 Ratna Chua Sinus tarsitis of left foot M25.[address] [address] 07/22/2024 Ratna Toma Assessments Encounter Date Diagnosis [...] X ray : Foot, left 3V 06/01/2021 44353, J0702- INJECT TENDON ORIGIN/INSER T 12/27/2022, J0702- INJECT or DRAIN, JOINT/BUR SA 03/08/2023, T1980-OZANC/INJECT, JOINT/BURSA 0 03/20/2024, K8707-LTXBI/INJECT, JOINT/BURSA 0 09/08/2024, E3258-CKBDP/INJECT, JOINT/BURSA 0 10/16/2018 X ray : Ankle, right 3V 09/05/2011 Next Appt Details Provider Name:Ratna Lopez deb, 12/31/2024 09:15:00 AM, [address] [facility], [place], [address], Insurance Providers Payer Name Payer Address Payer Phone Subscriber Number Group Number Insured Name Patient Relationship to Insured Coverage Start Date Coverage End Date Medicare National [employer]t [employer] [address] [facility] [place] [address] [id number] Leandra Galvez Self - patient is the insured [employer] ([employer]) [address] [place] [address] [id number] Leandra Galvez Self - patient is [...] abdominoplasty 11/11 Pain Stimulator removed- 3 days [facility] 08/28/2018
--- OUTSIDE RECORDS SUMMARY | 2024-11-24 08:58 | XMS_ITS | Clinical Summary ---
Author Organization [facility] it[facility] Address [address] [place] [address] Care Team Providers Care Picker Feeder Name Role Phone Unavailable Primary Care Provider [...]
--- OUTSIDE RECORDS SUMMARY | 2024-11-24 08:58 | XMS_ITS | Patient Health Record ---
Author Organization [facility] Address [address] [place] [address] Care Team Providers Care Account Specialist Name Role Phone Alma IVORY, Debbi Primary Care Provider Rashid Narayan Unavailable [phone] Allergies Allergen (clinical drug ingredient) Drug/Non Drug [...] Status Risk Notes Problem Colon cancer screening (473088839) Colon cancer screening (Z12.11) Active confirmed Problem 115817124 Abdominal bloating (R14.0) Active confirmed Problem Preprocedural examination (892765344485249) Preprocedural examination (Z01.818) Active confirmed Problem Irritable bowel syndrome characterized by constipation (616547588) Irritable bowel syndrome with constipation (K58.1) Active confirmed Problem 52500813 Abdominal gas pain (R14.1) Active confirmed Problem Long-term current use of drug therapy (486984627) High risk medications (not anticoagulants) long-term use (Z79.899) Active confirmed Vital Signs Blood pressure diastolic 77 mm Hg 09/11/2024 Height 62 in 09/11/2024 Blood pressure systolic 111 mm Hg 09/11/2024 Weight 140 lbs 09/11/2024 BMI 25.6 kg/m2 09/11/2024 Procedures Procedure Date Ordered Date Performed Result Body Sit e COLONOSCOPY 09/11/2024 N/A Encounters Encounter Location Date Provider Diagnosis [facility] [address] [place] [address] 09/11/2024 Rashid Wilson Colon cancer screeni ng Z12.11 ; Irritable bowel syndrome with constipation K58.1 ; Preprocedural examination Z01.818 and High risk medications (not anticoagulants) long-term use Z79.899 [facility] [address] [place] [address] 10/04/2024 Rashid Wilson Assessments Encounter Date Diagnosis [...] Ladd Steve , 12/15/2024 07:30:00 AM, [address] [facility] , [place], [place], [id number], Insurance Providers Payer Name Payer Address Payer Phone Subscriber Number Group Number Insured Name Patient Relationship to Insured Coverage Start Date Coverage End Date MEDICARE OF [place] [address] [place], [place] [id number] LEANDRA ESPINOZA Self - patient is the insured [employer] ([employer] [address] [place] [address] [id number] LEANDRA ESPINOZA Self - patient is the insured Medical (General) History Medical History History ICD Code 06/07/2004 Colonoscopy w/small internal hemorrhoids Uses Hctz for edema due to the Lyrica IBS--uses Hyoscyamine prn wi th relief--constipation, but stable on her bowel regimen Hyperlipidemia Shingles Denies NV,DM,CVA,Lung disease,renal dise ase Back pain with disc [...]
== END 2024-11-24 09:18 | disposition home or self-care (01) ==
LOC: HO.HMCC 08:11
PROVIDERS: PCP Internal Medicine; Visit Provider Internal Medicine
DX: I10 Essential (primary) hypertension (principal); E78.5 Hyperlipidemia, unspecified; M96.1 Postlaminectomy syndrome, not elsewhere classified; G89.4 Chronic pain syndrome; I89.0 Lymphedema, not elsewhere classified; Z87.19 Personal history of other diseases of the digestive system

== ENCOUNTER → 2024-11-24 08:10 | Outpatient (BNVA) | payer MEDICARE, OTHER, SELFPAY | PROVIDERS: PCP Internal Medicine; Visit Provider Internal Medicine | DX: I10 Essential (primary) hypertension (principal); E78.5 Hyperlipidemia, unspecified; M96.1 Postlaminectomy syndrome, not elsewhere classified; H69.01 Patulous Eustachian tube, right ear; I89.0 Lymphedema, not elsewhere classified; K59.03 Drug induced constipation; T40.2X5A Adverse effect of other opioids, initial encounter; G89.4 Chronic pain syndrome; Z98.84 Bariatric surgery status; Z87.19 Personal history of other diseases of the digestive system | CPT/HCPCS: 96127; 99495 ==

== ENCOUNTER 2024-12-10 08:08 | Outpatient (AMB) | payer MEDICARE, OTHER, SELFPAY ==
--- OUTSIDE RECORDS SUMMARY | 2024-03-20 05:00 | XMS_ITS ---
Author Organization [facility] Address [address] [place] [address] Care Team Providers Care Manager Wound Name Role Phone Alma IVORY, Debbi Garcia Primary Care Provider Un available Ratna Chua Unavailable [phone] Encounters Encounter Location Date Provider Diagnosis [facility] [address] [place] [address] 03/20/2024 Ratna Chua Plan Of Treatment Next Appt Details Provider Name:Ratna Lopez ker, 12/31/2024 09:15:00 AM, [address] [place], [address], Progress Notes * OLGA Leandra ADOB: [birth year] (74 yo F)Acc No.[id number]:03/20/2024 Progress Note Patient: Leandra HURTADO Provider: Kvng Chua DPM :1950 A ge:73 Y S ex:Female Date:03/20/2024 Address:[address] [place] [address] Pcp:Wilberto Cook Subjective: * Chief Complaints: * [...] 03/20/2024 Generated for Yissel patel/Luca/Han on: 0 12/10/2024 08:38 AM EDT
--- OUTSIDE RECORDS SUMMARY | 2024-07-24 05:00 | XMS_ITS ---
Author Organization [facility] Address [address] [place] [address] Care Team Providers Care Singe Machine Operator Name Role Phone Alma IVORY, Debbi Garcia Primary Care Provider Un available Ratna Chua Unavailable [phone] Encounters Encounter Location Date Provider Diagnosis [facility] [address] [place] [address] 07/24/2024 Ratna Chua Plan Of Treatment Next Appt Details Provider Name:Ratna Lopez ker, 12/31/2024 09:15:00 AM, [address] [place], [address], Progress Notes * OLGA Leandra ADOB: [birth year] (74 yo F)Acc No.[id number]:07/24/2024 Progress Note Patient: Leandra HURTADO Provider: Kvng Chua DPM :1950 A ge:73 Y S ex:Female Date:07/24/2024 Address:[address] [place] [address] Pcp:Wilberto Cook Subjective: * Chief Complaints: * [...] 07/24/2024 Generated for Yissel patel/Luca/Han on: 0 12/10/2024 08:38 AM EDT
--- OUTSIDE RECORDS SUMMARY | 2024-09-08 11:45 | XMS_ITS ---
Author Organization [facility] Address [address] [place] [address] Care Team Providers Care Paper Colorer Name Role Phone Alma IVORY, Debbi Garcia Primary Care Provider Un available Ratna Chua Unavailable [phone] Allergies Allergen (clinical drug ingredient) Drug/Non Drug [...] Active Encounters Encounter Location Date Provider Diagnosis [facility] [address] [address] 09/08/2024 Ratna Chua Plan Of Treatment Next Appt Details Provider Name:Ratna Jessica boyd, 12/31/2024 09:15:00 AM, [address] [place], [address], Progress Notes * Leandra ESPINOZA ADOB: [birth year] (74 yo F)Acc No.[id number]:09/08/2024 Progress Note Patient: Leandra HURTADO Provider: Kvng Chua DPM :1950 A ge:73 Y S ex:Female Date:09/08/2024 Address:[address] [place], [place] [phone] Pcp:Wilberto Cook Subjective: * Chief Complaints: * [...] 09/08/2024 Generated for Yissel patel/Luca/Han on: 0 12/10/2024 08:36 AM EDT
--- NOTE | 2024-12-10 08:28 | A.OFFVIS_ITS ---
Vital Signs 12/10/24 08:29 Height 5 ft 2 in Weight 136 lb BMI 24.9 BP 121/60 Blood Pressure Location Lt brachial Position Sitting Respiration 18 Pulse 102 H Pulse Source Pulse Oximeter Pulse Oximetry (%) 98 Oxygen Delivery Method Room Air Intake Visit Reasons: Pill Count Intake Note: pt states she last took her oxycodone at 8am yesterday 12.09.24. Ciro says she should have 8 pills, she presented with 18 Allergies buprenorphine (Belbuca) Allergy (Unknown, Verified 11/30/24 01:45) stomach upset NSAIDS (Non-Steroidal Anti-Inflamma Allergy (Unknown, Verified 11/30/24 01:45) Stomach Upset HPI Comments Details: Leandra presents back to the office today for follow up chronic pain and chronic opioid therapy management. She reports today her pain level 0/10. She reported that last time she tried to take Movantik and next day she ended up in the hospital with small bowel obstruction. She was given NG tube and was placed NPO. Her bowel obstruction was resolved. However now I recommend her not to take her Movantik for now. She has had the laparoscopic gastric banding procedure 20 years ago, this device is not active at this time. However it is considered to be surrounded by adhesions and may prevent her from getting good peristaltic dynamics in her gut. She is also scheduled for colonoscopy. Her pill count is correct. She is prescribed oxycodone 5 mg twice a day p.r.n. pain. She supposed to have 8 pills in her possession. She presented with 18 pill in her possession. This demonstrates responsible attitude to were the opioid medications. I will renew her medications on 12/14/2024. We discussed in the past sprint PNS, in the distant past we did medial branch blocks for the patient which did not result in significant pain improvement. Her pain is mostly axial and is being aggravated by flexing backwards. On the MRI dictated as below widespread spondylosis is demonstrated in the patient's lumbar spine. I offered the patient to perform again diagnostic medial branch blocks in the order to prepare her for sprint PNS. I also gave her sprint PNS brochure to read. Denies side effects including somnolence,itching, dyspnea, rash, dizziness, urinary retention or weakness. She has PHQ score is equal to 1, Her opioid addiction risk score is equal to 2 Total score is equal to 3 she is low risk for opioid addiction. [facility] Medical History Small bowel obstruction Abdominal pain Osteoarthritis History of osteopenia Obesity (BMI 30.0-34.9) Prolapse of anterior vaginal wall Essential hypertension Dyslipidemia Irritable bowel syndrome Chronic pain syndrome Bilateral primary osteoarthritis of knee Spondylosis without myelopathy or radiculopathy, lumbar region Surgical History History of tonsillectomy History of hysterectomy History of carpal tunnel surgery History of cholecystectomy History of laparoscopic appendectomy History of lumbar laminectomy History of reduction mammoplasty H/O abdominoplasty Hx of bariatric surgery Family History Mother Diabetes mellitus Essential hypertension Cardiovascular disease Daughter Wernicke-Korsakoff syndrome (alcoholic) Social History Household Members: None Household Members Other:: 0 Housing: House Do you presently have visiting nurse or other home services: No Alcohol intake: never Patient Tobacco Use Status: Former Tobacco user e-Cigarette/Vaping Use: Never Used Advance Directives Date on File: 12/22/21 service: No Current occupational status: retired Cognitive needs: No Hearing needs: No Vision needs: No Review of Systems Const All systems reviewed & are unremarkable except as noted in HPI and below Physical Exam Vital Signs: Last Vital Signs Pulse 102 H 12/10/24 08:29 Resp 18 12/10/24 08:29 BP 121/60 12/10/24 08:29 Pulse Ox 98 12/10/24 08:29 Oxygen Delivery Method Room Air 12/10/24 08:29 Const General: cooperative, comfortable and well developed Eyes General: appearance normal, both eyes and all related structures EOM: EOMs intact bilaterally Resp Effort & Inspection: normal respiratory effort, able to speak in complete sentences, normal respiratory pattern, no audible wheezes and no cough Cardio Jugular venous distension: no JVD Back/Spine/Pelvis Other: She is able to walk on her tip toes as well as on her heels. She denies radiation of the pain from lower back to the extremities. She denies Valsalva maneuver positive for pain increase. She is able to flex forward and flex backward admits severe pain with flexing backward the majority of the pain is located in the projection of sacral bone on palpation. There is no radiation on palpation. She denies bowel and bladder dysfunction. Bending forward and bending backwards are not very comfortable but bending backwards aggravates her pain more. Nigel test is negative for sacroiliac joint pathology. Palpation of the sacroiliac joint projection to the skin is also negative.. Assessment & Plan Assessment & Plan (1) Peripheral neuropathy: Code(s): G62.9 - Polyneuropathy, unspecified Category: Medical (2) Spondylosis without myelopathy or radiculopathy, lumbar region: Code(s): M47.816 - Spondylosis without myelopathy or radiculopathy, lumbar region Category: Medical (3) Bilateral primary osteoarthritis of knee: Code(s): M17.0 - Bilateral primary osteoarthritis of knee Category: Medical (4) Chronic pain syndrome: Code(s): G89.4 - Chronic pain syndrome Category: Medical (5) Disc degeneration, lumbar: Code(s): M51.36 - Other intervertebral disc degeneration, lumbar region Category: Medical (6) Trochanteric bursitis, left hip: Code(s): M70.62 - Trochanteric bursitis, left hip Category: Medical Plan Masspat was reviewed and without concerns. Her pill count is correct today I will prescribe her oxycodone 5 mg b.i.d. due on 12/14/2024 She did not go for physical therapy because of her recent hospitalization. It could be that she developed small bowel obstruction secondary to Movantik. I told her not to take it for now. In the past we discuss sprint PNS to treat her lower back pain, her MBB was indicative of the facet generated pain. However patient is not eager at this time to consider this procedure. Next appointment will be scheduled in 1 month for the pill count. Medications: Refilled oxycodone Partial Fill upon patient request. 5 mg PO BID PRN 60 tabs 0RF pain 30 days M17.0 - Bilateral primary osteoarthritis of knee, M96.1 - Postlaminectomy s yndrome, not elsewhere classified, Z79.891 - adjunct faculty for medical terminology (current) use of opiate analgesic Coding Level of Care Code Est Pt Level 3 (46231) Diagnoses Peripheral neuropathy G62.9 Spondylosis without myelopathy or radiculopathy, lumbar region M47.816 Bilateral primary osteoarthritis of knee M17.0 Chronic pain syndrome G89.4 Disc degeneration, lumbar M51.36 Trochanteric bursitis, left hip M70.62
[2024-12-10 08:29] VITALS: BP 121/60; PULSE 102; RESP 18; O2SAT 98; BMI 24.9
--- OUTSIDE RECORDS SUMMARY | 2024-12-10 08:37 | XMS_ITS | Patient Health Record ---
Author Organization [facility] Address [address] [place] [address] Care Team Providers Care Tape Making Machine Operator Name Role Phone Alma IVORY, Debbi Primary Care Provider Rashid Narayan Unavailable [phone] Allergies Allergen (clinical drug ingredient) Drug/Non Drug [...] Status Risk Notes Problem Colon cancer screening (189623108) Colon cancer screening (Z12.11) Active confirmed Problem 917963441 Abdominal bloating (R14.0) Active confirmed Problem Preprocedural examination (525978760792085) Preprocedural examination (Z01.818) Active confirmed Problem Irritable bowel syndrome characterized by constipation (672815710) Irritable bowel syndrome with constipation (K58.1) Active confirmed Problem 97748068 Abdominal gas pain (R14.1) Active confirmed Problem Long-term current use of drug therapy (969100033) High risk medications (not anticoagulants) long-term use (Z79.899) Active confirmed Vital Signs Blood pressure diastolic 77 mm Hg 09/11/2024 Height 62 in 09/11/2024 Blood pressure systolic 111 mm Hg 09/11/2024 Weight 140 lbs 09/11/2024 BMI 25.6 kg/m2 09/11/2024 Procedures Procedure Date Ordered Date Performed Result Body Sit e COLONOSCOPY 09/11/2024 N/A Encounters Encounter Location Date Provider Diagnosis [facility] [address] [place] [address] 09/11/2024 Rashid Wilson Colon cancer screeni ng Z12.11 ; Irritable bowel syndrome with constipation K58.1 ; Preprocedural examination Z01.818 and High risk medications (not anticoagulants) long-term use Z79.899 [facility] [address] [place] [address] 10/04/2024 Rashid Wilson Assessments Encounter Date Diagnosis [...] Ladd Steve , 12/15/2024 07:30:00 AM, [address] , [place], [place], [id number], Insurance Providers Payer Name Payer Address Payer Phone Subscriber Number Group Number Insured Name Patient Relationship to Insured Coverage Start Date Coverage End Date [place] [address] [place], [place] [id number] [phone] [id number] LEANDRA ESPINOZA Self - patient is the insured 8 [employer] ([employer]ert[employer]!) [address] [place] [address] [id number] LEANDRA ESPINOZA Self - patient is the insured Medical (General) History Medical History History ICD Code 06/07/2004 Colonoscopy w/small internal hemorrhoids Uses Hctz for edema due to the Lyrica IBS--uses Hyoscyamine prn wi th relief--constipation, but stable on her bowel regimen Hyperlipidemia Shingles Denies ND,DM,CVA,Lung disease,renal dise ase Back pain with disc [...]
--- OUTSIDE RECORDS SUMMARY | 2024-12-10 08:37 | XMS_ITS | Patient Health Record ---
Author Organization [facility] Address [address] [place] [address] Care Team Providers Care Speeder Operator Name Role Phone Alma IVORY, Debbi Garcia Primary Care Provider Un available Ratna Chua Unavailable [phone] Allergies Allergen (clinical drug ingredient) Drug/Non Drug [...] primary osteoarthritis of the ankle and/or foot (935016189) Primary osteoarthritis , left ankle and foot (M19.072) Active confirmed Problem Acquired hallux valgus (69058468) Hallux valgus (acquired), left foot (M20.12) Active confirmed Problem Acquired hammer toe of left foot (9572907179254157) Other hammer toe(s) (acquired), left foot (M20.42) Active confirmed Problem Lymphedema (80899025) Lymphedema (I89.0) Active confirmed Problem Left metatarsus adductus (disorder) (00446988447165124 ) 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 Vital Signs Blood pressure diastolic 65 mm Hg 09/08/2024 Height 5ft2in in 09/08/2024 Blood pressure systolic 128 mm Hg 09/08/2024 Weight 150 lbs 09/08/2024 BMI 27.43 kg/m2 09/08/2024 Procedures Procedure Date Ordered Date Performed Result Body Sit e , F7925-TXKSF/INJECT, JOINT/BURSA 03/20/2024 N/A , C4905-FMMHW/INJECT, JOINT/BURSA 09/08/2024 N/A Encounters Encounter Location Date Provider Diagnosis [facility] [place] [address] 03/20/2024 Ratna Chua Sinus tarsitis of left foot M25.572 [facility] [address] [address] 09/08/2024 Ratna Chua Sinus tarsitis of left foot M25.[address] [facility] [address] 07/22/2024 Ratna Chua Assessments Encounter Date Diagnosis (ICD Code) Assessment [...] X ray : Foot, left 3V 06/01/2021 85178, J0702- INJECT TENDON ORIGIN/INSER T 12/27/2022, J0702- INJECT or DRAIN, JOINT/BUR SA 03/08/2023, R2245-FKRFX/INJECT, JOINT/BURSA 0 03/20/2024, F0882-LRPGU/INJECT, JOINT/BURSA 0 09/08/2024, G5277-LUEAD/INJECT, JOINT/BURSA 0 10/16/2018 X ray : Ankle, right 3V 09/05/2011 Next Appt Details Provider Name:Ratna boyd, 12/31/2024 09:15:00 AM, [address] [place] [address], [phone], Insurance Providers Payer Name Payer Address Payer Phone Subscriber Number Group Number Insured Name Patient Relationship to Insured Coverage Start Date Coverage End Date Medicare National [employer]t [employer] [address] [place] [address] [id number] Gaylenancy Leandra Self - patient is the insured [employer] ([employer]) [address] [place] [address] [phone] [id number] Leandra Galvez Self - patient is [...] abdominoplasty 11/11 Pain Stimulator removed- 3 days [facility] 08/28/2018
--- OUTSIDE RECORDS SUMMARY | 2024-12-10 08:37 | XMS_ITS | Clinical Summary ---
Author Organization [facility] Address [address] [place] [address] Care Team Providers Care Manager Urgent Care Name Role Phone Unavailable Primary Care Provider [...] 2002 Zoster Vaccines (1 of 2) 2002 Depression Screening 03/19/2024 COVID-19 Vaccine (1 - 2023-2 5 season) 2024 Influenza Vaccine (#1) 2024 RSV Immunization Adult [...]
--- OUTSIDE RECORDS SUMMARY | 2024-12-10 08:37 | XMS_ITS | Clinical Summary ---
Author Organization [facility] Address [address] [place] [address] Care Team Providers Care Chair Spring Assembler Name Role Phone Debbi Marquez MD Primary Care Provider Encounters Date Type Department Care Team Description 12/03/2024 12:30 PM EDT Procedure visit [facility] Audiology Department [address] [place] [address] Kj Olsen, AUD, CCC-A Sensorineural hearing loss, bilateral (Primary Dx) from Last 3 Months Social History Tobacco Use Types Packs/Day Years Used Date Smoking Tobacco: Never Assessed Comments Unknown Sex and Gender Information Value Date Recorded Sex Assigned at Female 2024 2:14 PM EDT Legal Sex Female 2:11 PM EDT Gender Identity Not on file Sexual Orientation Not on file Plan of Treatment Health Maintenance Due Date Last Done Comments Cologuard 1950 Colon Cancer Screening 1950 Colonoscopy 1950 FOBT / Fit Test 1950 Hepatitis C Screening 1950 Sigmoidoscopy 1950 Medicare AWV 1953 DTaP,Tdap,and Td Vaccines (1 - Tdap) 1974 Mammogram 1992 Osteoporosis Screening 2002 Pneumococcal Vaccine: 50+ Ye ars (1 of 1 - PCV) 2002 Zoster Vaccines (1 of 2) 2002 Alcohol/Substance Use Screening 03/19/2024 Depression Screening and Follow-Up 03/19/2024 Health Care Proxy Review 03/19/2024 Social Drivers of Health Madelaine ual Screening 03/19/2024 COVID-19 Vaccine ( - 2023-2 5 season) 2024 Influenza Vaccine (#1) 2024 RSV Vaccine (60+ years old a nd patients) (1 - 1-dose 75+ series) 10/24/2027 Hepatitis B Vaccines Aged Out No long er eligible based on patient's age to complete this topic Insurance MEDICARE [facility] Care Teams Chair Spring Assembler Relationship Specialty Start Date End Date Debbi Marquez MD [address] [place] [address] PCP - General Internal Medicine 10/23/24
== END 2024-12-10 08:47 | disposition home or self-care (01) ==
LOC: HO.PMC 08:09
PROVIDERS: PCP Internal Medicine; Visit Provider Anesthesiology
DX: G62.9 Polyneuropathy, unspecified (principal); M47.816 Spondylosis without myelopathy or radiculopathy, lumbar region; M17.0 Bilateral primary osteoarthritis of knee; G89.4 Chronic pain syndrome; M51.369 Other intervertebral disc degeneration, lumbar region without mention of lumbar back pain or lower extremity pain; M70.62 Trochanteric bursitis, left hip
CPT/HCPCS: 99213

== ENCOUNTER → 2024-12-10 08:08 | Outpatient (BNVA) | payer MEDICARE, OTHER, SELFPAY | PROVIDERS: PCP Internal Medicine; Visit Provider Anesthesiology | DX: M47.816 Spondylosis without myelopathy or radiculopathy, lumbar region (principal); M17.0 Bilateral primary osteoarthritis of knee; G89.4 Chronic pain syndrome; M70.62 Trochanteric bursitis, left hip; G62.9 Polyneuropathy, unspecified; Z79.891 Long term (current) use of opiate analgesic; Z87.891 Personal history of nicotine dependence; M51.362 Other intervertebral disc degeneration, lumbar region with discogenic back pain and lower extremity pain | CPT/HCPCS: 99212 ==

== ENCOUNTER 2024-12-15 06:11 | Day surgery (SDC) | payer MEDICARE, OTHER, SELFPAY ==
--- OUTSIDE RECORDS SUMMARY | 2024-09-08 11:45 | XMS_ITS ---
[facility] Address [address] [place] [address] Care Team Providers Care Director Wholesale Name Role Phone Alma IVORY, Debbi Garcia Primary Care Provider Un available Ratna Chua Unavailable [phone] Allergies Allergen (clinical drug ingredient) Drug/Non Drug [...] Active Encounters Encounter Location Date Provider Diagnosis [facility] [address] [address] 09/08/2024 Ratna Chua Plan Of Treatment Next Appt Details Provider Name:Ratna Jessica boyd, 12/31/2024 09:15:00 AM, [address] [place], [address], Progress Notes * Leandra ESPINOZA ADOB: [birth year] (74 yo F)Acc No.[id number]:09/08/2024 Progress Note Patient: Leandra HURTADO Provider: Kvng Chua DPM :1950 A ge:73 Y S ex:Female Date:09/08/2024 Address:[address] [place], [place] [id number] Pcp:Wilberto Cook Subjective: * Chief Complaints: * [...] 09/08/2024 Generated for Yissel patel/Luca/Han on: 0 2024 09:30 AM EDT
--- OUTSIDE RECORDS SUMMARY | 2024-10-23 09:30 | XMS_ITS | Clinical Summary ---
Author Organization [facility] ity Address [address] [place] [address] Care Team Providers Care Convenience Store Manager Name Role Phone Unavailable Primary Care Provider [...]
--- OUTSIDE RECORDS SUMMARY | 2024-10-23 09:30 | XMS_ITS | Patient Health Record ---
Author Organization [facility] Address [address] [place] [address] Care Team Providers Care Azure Principal Solution Specialist Name Role Phone Alma IVORY, Debbi Primary Care Provider Rashid Narayan Unavailable [phone] Allergies Allergen (clinical drug ingredient) Drug/Non Drug [...] Status Risk Notes Problem Colon cancer screening (899148286) Colon cancer screening (Z12.11) Active confirmed Problem 942347513 Abdominal bloating (R14.0) Active confirmed Problem Preprocedural examination (719074005723936) Preprocedural examination (Z01.818) Active confirmed Problem Irritable bowel syndrome characterized by constipation (920496455) Irritable bowel syndrome with constipation (K58.1) Active confirmed Problem 64780389 Abdominal gas pain (R14.1) Active confirmed Problem Long-term current use of drug therapy (712168280) High risk medications (not anticoagulants) long-term use (Z79.899) Active confirmed Vital Signs Blood pressure diastolic 77 mm Hg 09/11/2024 Height 62 in 09/11/2024 Blood pressure systolic 111 mm Hg 09/11/2024 Weight 140 lbs 09/11/2024 BMI 25.6 kg/m2 09/11/2024 Procedures Procedure Date Ordered Date Performed Result Body Sit e COLONOSCOPY 09/11/2024 N/A Encounters Encounter Location Date Provider Diagnosis [facility] [address] [place] [address] 09/11/2024 Rashid Wilson Colon cancer screeni ng Z12.11 ; Irritable bowel syndrome with constipation K58.1 ; Preprocedural examination Z01.818 and High risk medications (not anticoagulants) long-term use Z79.899 [facility] [address] [place] [address] 10/04/2024 Rashid Wilson Assessments Encounter Date Diagnosis [...] 11/04/2013 Next Appt Details Provider Name:Rashid Ladd tSeve , 12/15/2024 07:30:00 AM, [address] [facility] , [place], [place], [id number], Insurance Providers Payer Name Payer Address Payer Phone Subscriber Number Group Number Insured Name Patient Relationship to Insured Coverage Start Date Coverage End Date MEDICARE OF [place] [address] [place], [place] [id number] [phone] [id number] LEANDRA ESPINOZA Self - patient is the insured 8 [employer] ([employer]) [address] [place] [address] [id number] LEANDRA ESPINOZA Self - patient is the insured Medical (General) History Medical History History ICD Code 06/07/2004 Colonoscopy w/small internal hemorrhoids Uses Hctz for edema due to the Lyrica IBS--uses Hyoscyamine prn wi th relief--constipation, but stable on her bowel regimen Hyperlipidemia Shingles Denies DC,DM,CVA,Lung disease,renal dise ase Back pain with disc [...]
--- NOTE | 2024-12-10 14:37 | HO.ANESPROP2 ---
Documented by User: Marylu Early NP 12/10/24 14:39 HPI - Anesthesia Eval Consult details Narrative: 74 yr old female for colonoscopy Chronic opioid use for back pain Anesthesia Pre-Procedure Meds Is the patient on any of the following meds?: GLP1/DPP4 PMFSH Active Problems Active Problems: All Active Problems Lumbar degenerative disc disease (Acute) Ankle sprain (Acute) Right ankle pain (Acute) Right foot pain (Acute) Pain of right lower leg (Acute) Lymphedema (Acute) Paresthesia of foot, bilateral (Acute) Peripheral neuropathy (Acute) Osteoarthritis (Acute) Opioid contract exists (Acute) Obesity (BMI 30.0-34.9) (Acute) Postlaminectomy syndrome of lumbar region (Acute) Essential hypertension (Acute) Dyslipidemia (Acute) Irritable bowel syndrome (Acute) Chronic pain syndrome (Acute) Bilateral primary osteoarthritis of knee (Acute) Spondylosis without myelopathy or radiculopathy, lumbar region (Acute) Past Medical History Medical History Hx of right bundle branch block Patulous eustachian tube Small bowel obstruction Abdominal pain Osteoarthritis History of osteopenia Obesity (BMI 30.0-34.9) Prolapse of anterior vaginal wall Essential hypertension Dyslipidemia Irritable bowel syndrome Chronic pain syndrome Bilateral primary osteoarthritis of knee Spondylosis without myelopathy or radiculopathy, lumbar region Family History Family History Mother Diabetes mellitus Essential hypertension Cardiovascular disease Daughter Wernicke-Korsakoff syndrome (alcoholic) Surgical History Surgical History History of total right knee replacement Hx of colonoscopy Hx of laparoscopic gastric banding (~2004) History of tonsillectomy History of hysterectomy History of carpal tunnel surgery History of cholecystectomy History of laparoscopic appendectomy History of lumbar laminectomy History of reduction mammoplasty H/O abdominoplasty Hx of bariatric surgery Social History Social History Household Members: None Household Members Other:: 0 Housing: House Do you presently have visiting nurse or other home services: No Alcohol intake: never Patient Tobacco Use Status: Former Tobacco user Smoked in Last 30 Days: No e-Cigarette/Vaping Use: Never Used Use of substances other than those prescribed or required for medical reasons: No Have you been hit, kicked, punched, or otherwise hurt by someone within the past year? If so, by whom?: No Advance Directives: Yes Advance Directives Information Provided: No Advance Directives on File: Yes Advance Directives Date on File: 12/22/21 Poor oral hygiene: No service: No Current occupational status: retired Cognitive needs: No Hearing needs: No Vision needs: No Meds Allergies Allergy/AdvReac Type Severity Reaction Status Date / Time buprenorphine (Belbuca) Allergy Unknown stomach Verified 12/15/24 06:52 upset NSAIDS (Non-Steroidal Allergy Unknown Stomach Verified 12/15/24 06:52 Anti-Inflamma Upset Home Medications ?Medication ?Instructions ?Recorded ?Confirmed ?Last Taken ?Type estradiol 2 mg tablet (Estrace) 2 mg PO 3XW 07/12/20 12/11/24 11/17/24 History cholecalciferol (vitamin D3) 50 50 mcg PO BEDTIME 10/26/22 12/11/24 11/16/24 History mcg (2,000 unit) tablet (Vitamin D3) magnesium 250 mg tablet 250 mg PO BEDTIME 01/29/24 12/11/24 11/16/24 History amitriptyline 25 mg tablet 25 mg PO BEDTIME 11/18/24 12/11/24 11/16/24 History yhhrepjq-zpxxwxh-nmte-lutein tablet 1 tab PO DAILY 11/18/24 12/11/24 11/17/24 History naloxegol 12.5 mg tablet (Movantik) 12.5 mg PO DAILY 11/18/24 12/11/24 11/17/24 History semaglutide 2.4 mg/0.3 mL mg subcut QWEEK 11/24/24 11/24/24 12/05/24 History subcutaneous syringe atorvastatin 20 mg tablet 20 mg PO 3XW 12/11/24 12/11/24 Unknown History naloxone 4 mg/actuation nasal 4 mg intranasal Q2M PRN for 12/15/24 12/11/24 Unknown History spray (Narcan) patchulous eustachian tube Documented by User: Bertha Reid MD 12/15/24 07:31 [facility] Active Problems Active Problems: qAll Active Problems Lumbar degenerative disc disease (Acute) Ankle sprain (Acute) Right ankle pain (Acute) Right foot pain (Acute) Pain of right lower leg (Acute) Lymphedema (Acute) Paresthesia of foot, bilateral (Acute) Peripheral neuropathy (Acute) Osteoarthritis (Acute) Opioid contract exists (Acute) Obesity (BMI 30.0-34.9) (Acute) Postlaminectomy syndrome of lumbar region (Acute) Essential hypertension (Acute) Dyslipidemia (Acute) Irritable bowel syndrome (Acute) Chronic pain syndrome (Acute) Bilateral primary osteoarthritis of knee (Acute) Spondylosis without myelopathy or radiculopathy, lumbar region (Acute) Past Medical History Medical History Hx of right bundle branch block Patulous eustachian tube Small bowel obstruction Abdominal pain Osteoarthritis History of osteopenia Obesity (BMI 30.0-34.9) Prolapse of anterior vaginal wall Essential hypertension Dyslipidemia Irritable bowel syndrome Chronic pain syndrome Bilateral primary osteoarthritis of knee Spondylosis without myelopathy or radiculopathy, lumbar region Family History Family History Mother Diabetes mellitus Essential hypertension Cardiovascular disease Daughter Wernicke-Korsakoff syndrome (alcoholic) Surgical History Surgical History History of total right knee replacement Hx of colonoscopy Hx of laparoscopic gastric banding (~2004) History of tonsillectomy History of hysterectomy History of carpal tunnel surgery History of cholecystectomy History of laparoscopic appendectomy History of lumbar laminectomy History of reduction mammoplasty H/O abdominoplasty Hx of bariatric surgery History of Problems with Anesthesia: No Social History Social History Household Members: None Household Members Other:: 0 Housing: House Do you presently have visiting nurse or other home services: No Alcohol intake: never Patient Tobacco Use Status: Former Tobacco user Smoked in Last 30 Days: No e-Cigarette/Vaping Use: Never Used Use of substances other than those prescribed or required for medical reasons: No Have you been hit, kicked, punched, or otherwise hurt by someone within the past year? If so, by whom?: No Advance Directives: Yes Advance Directives Information Provided: No Advance Directives on File: Yes Advance Directives Date on File: 12/22/21 Poor oral hygiene: No service: No Current occupational status: retired Cognitive needs: No Hearing needs: No Vision needs: No Meds Allergies Allergy/AdvReac Type Severity Reaction Status Date / Time buprenorphine (Belbuca) Allergy Unknown stomach Verified 12/15/24 06:52 upset NSAIDS (Non-Steroidal Allergy Unknown Stomach Verified 12/15/24 06:52 Anti-Inflamma Upset Home Medications ?Medication ?Instructions ?Recorded ?Confirmed ?Last Taken ?Type estradiol 2 mg tablet (Estrace) 2 mg PO 3XW 07/12/20 12/11/24 11/17/24 History cholecalciferol (vitamin D3) 50 50 mcg PO BEDTIME 10/26/22 12/11/24 11/16/24 History mcg (2,000 unit) tablet (Vitamin D3) magnesium 250 mg tablet 250 mg PO BEDTIME 01/29/24 12/11/24 11/16/24 History amitriptyline 25 mg tablet 25 mg PO BEDTIME 11/18/24 12/11/24 11/16/24 History kpmigfrp-shnanuk-cldb-lutein tablet 1 tab PO DAILY 11/18/24 12/11/24 11/17/24 History naloxegol 12.5 mg tablet (Movantik) 12.5 mg PO DAILY 11/18/24 12/11/24 11/17/24 History semaglutide 2.4 mg/0.3 mL mg subcut QWEEK 11/24/24 11/24/24 12/05/24 History subcutaneous syringe atorvastatin 20 mg tablet 20 mg PO 3XW 12/11/24 12/11/24 Unknown History naloxone 4 mg/actuation nasal 4 mg intranasal Q2M PRN for 12/15/24 12/11/24 Unknown History spray (Narcan) patchulous eustachian tube Exam Airway Mallampati Class: III (small mouth) TM Dist: >3cm Neck ROM: Full Loose/Missing/Broken Teeth: No Heart: RRR Lungs: CTA Assessment and Plan Assessment Anesthesia Assessment: Anesthesia Plan Discussed and Chart Reviewed Final Anesthetic Review History of Problems with Anesthesia: No NPO: Yes ASA Class: II Final Preanesthetic Review: Meds/Allgs Chart Reviewed, Consent Obtained/Reviewed and Anes Risks/Benef Reviewed Patient Risk: Low Procedure Risk: Low Anesthetic Plan Anesthetic Plan: MAC: Disposition: Standard PACU
[2024-12-11 12:23] VITALS: BMI 25.6
[2024-12-11 16:40] VITALS: BMI 24.9
[2024-12-15 07:01] VITALS: BP 118/73; PULSE 83; RESP 15; TEMP 36.3; O2SAT 98
[2024-12-15] MEDS: Lactated Ringers 1,000 ML 100 ML IVCONT (07:03)
[2024-12-15 08:39] VITALS: BP 99/55; PULSE 75; RESP 18; TEMP 36.2; O2SAT 100
--- NOTE | 2024-12-15 08:43 | P.BOP_ITS ---
Brief Operative Note Date of Service: 12/15/24 Pre-op diagnosis: Screening Post-op diagnosis: other (Diverticulosis) Procedure: Colonoscopy to the cecum Surgeon: Rashid Wilson MD Anesthesia: MAC Was an Engineering Agent used for this Procedure?: No Estimated blood loss (mL): 0 Pathology: none sent Condition: stable Disposition: PACU
[2024-12-15 08:54] VITALS: BP 102/57; PULSE 75; RESP 16; TEMP 36.1; O2SAT 98
--- NOTE | 2024-12-15 09:32 | OP_ITS ---
DATE OF SERVICE: 12/15/2024 SURGEON: Rashid Wilson MD INDICATIONS: The patient presents for evaluation of colorectal cancer screening. Full consent has been obtained from her for this, including risks of bleeding and perforation. PREOPERATIVE DIAGNOSIS: Colorectal cancer screening. POSTOPERATIVE DIAGNOSIS: PROCEDURE PERFORMED: Colonoscopy to the cecum. ESTIMATED BLOOD LOSS: COMPLICATIONS: ANESTHESIA: Medication used, monitored anesthesia care. ASSISTANTS: SPECIMENS: POSTOPERATIVE DIAGNOSES: Colorectal cancer screening, diverticulosis, and internal hemorrhoids. DESCRIPTION OF PROCEDURE: The patient was placed in the left lateral decubitus position. The digital rectal exam revealed no abnormalities. The Olympus video pediatric colonoscope was entered into the rectum and advanced easily to the cecum. Once in the cecum, I did identify a normal-appearing cecal pouch after a lot of irrigation and suctioning. However, good visualization was obtained, including the appendiceal orifice, which appeared normal. The ileocecal valve appeared normal. The scope was then slowly withdrawn assessing all mucosal surfaces carefully. Preparation was excellent. I did not visualize any sign of polyps, colitis, nor angiodysplasia. There was a mild amount of sigmoid diverticulosis. In the rectum, scope was retroflexed visualizing internal hemorrhoids, but no other pathology. The rectal mucosa appeared normal. The scope was straightened and withdrawn from the patient. She tolerated the procedure well and was returned to the recovery area in stable condition. IMPRESSION: 1. Diverticulosis. 2. Internal hemorrhoids. PLAN: Given today's negative colonoscopy, negative colonoscopies in 2004 and in 2013, her age, and no family history of colon cancer, I advised her that I do not think she would need any further screening colonoscopies. She will otherwise see me as needed. MD MADISON Castro/JULIET / [phone] MTDD
== END 2024-12-15 09:29 | disposition home or self-care (01) ==
PROVIDERS: PCP Internal Medicine; Visit Provider Internal Medicine
PROC: 0DJD8ZZ Inspection of Lower Intestinal Tract, Via Natural or Artificial Opening Endoscopic (ICD-10-PCS; CPT 45378; principal; 2024-12-15 07:30)
DX: Z12.11 Encounter for screening for malignant neoplasm of colon (principal); K57.30 Diverticulosis of large intestine without perforation or abscess without bleeding; K64.8 Other hemorrhoids; K58.1 Irritable bowel syndrome with constipation; R60.9 Edema, unspecified; E78.5 Hyperlipidemia, unspecified; G89.4 Chronic pain syndrome; M47.816 Spondylosis without myelopathy or radiculopathy, lumbar region; Z79.899 Other long term (current) drug therapy; Z79.85 Long-term (current) use of injectable non-insulin antidiabetic drugs; Z90.49 Acquired absence of other specified parts of digestive tract; Z98.84 Bariatric surgery status; Z87.891 Personal history of nicotine dependence
CPT/HCPCS: G0121; J2003; J2704

== ENCOUNTER 2025-01-20 13:40 | Outpatient (AMB) | payer MEDICARE, OTHER, SELFPAY ==
--- OUTSIDE RECORDS SUMMARY | 2023-08-10 07:23 | XMS_ITS | Continuity of Care Document ---
Author Organization [facility] Address [address] [place] [address] Phone Care Team Providers Care Waste Duster Name Role Phone Navdeep IVORY, RVT, RPVI, [...] Diagnoses Date Provider Providers Copied on Encounter [facility] MD WETZEL, [address] [place] [address] Dr Valenzuela 1000Suite 1000Michael [place], [id number], tel:[phone] [facility] No Information 4 Navdeep IVORY RVT, CAROLA Mike. [address] [address], [facility] [place], [id number] , [place]. tel:[phone] Office/Outpt E&M Established 15 Mins- CT & [place] [facility] MD WETZEL, [address] [place] [address] Dr Valenzuela 1000SuMichael toure [place], [id number], [place] tel:[phone] [facility] Lymphedema, not elsewhere classifiedCramp and spasmRestless legs syndrome 4 Navdeep IVORY RVT, CAROLA Mike. [address] [address], [place], [place], [id number] , [place]. tel:[phone] Referring Provider: Debbi Garcia, [address] [place] [address], [address]. tel:[phone] [facility] MD WETZEL, [address] [place] [address] Dr Valenzuela [address]Suite Michael Sanchez [place], [id number], [place] tel:[phone] CVR - [facility] Chronic venous hypertension (idiopathic) with other complications of bilateral lower extremity 4 Navdeep IVORY RVT, CAROLA Mike. [address] [facility], [address], [facility] [place], [id number] , [place]. tel:[phone] Referring Provider: Debbi Garcia, [address] [facility] [address] [place], [address]. tel:[phone] [facility], [address] [place] [address] Dr Valenzuela 1000Suite 1000Michael [place], [id number], [place] tel:[phone] CVR - [facility] Encounter for follow-up examination after completed treatment for conditions other than malignant nePain in left leg Apr-0 4 Navdeep IVORY RVT, CAROLA Mike. [address] [facility], [address], [place], [place], [id number] , [place]. [phone] Referring Provider: Debbi Marquez MD Jose, [address] [place] [address], [address]. tel:[phone] [facility], [address] [place] [address] Dr Valenzuela 1000[address] 1000Michael [place], [id number], [place] tel:[phone] CVR [facility] Varicose veins of left lower extremity with other complications Apr-0 4 Lucila Reese . [address] [address], [place], [place], [id number] , [place]. [phone] Referring Provider: Debbi Marquez MD Jose, [address] [place] [address], [address]. tel:[phone] [facility], [address] [place] [address] Dr Valenzuela 1000Suite 1000Michael [place], [id number], [place] tel:[phone] CVR - [facility] Encounter for follow-up examination after completed treatment for conditions other than malignant nePain in right leg Apr-0 4 Navdeep IVORY RVT, CAR[place] Mike. [address] [address], [place], [place], [id number] , [place]. [phone] Referring Provider: Debbi Garcia, [address] [place] [address], [address]. tel:[phone] [facility], [address] [place] [address] Dr Valenzuela 1000Suite 1000Michael [place], [id number], [place] tel:[phone] CVR - [place] [facility] [place] Chronic venous hypertension (idiopathic) with inflammation of right lower extremity May-2 4 Navdeep IVORY RVT, CAROLA Mike. [address] [facility], [facility] [address], [place], [place], [id number] , [place]. tel:[phone] Referring Provider: Debbi Garcia, [address] [place] [address], [address]. tel:[phone] Office/Outpt E&M Established 25 Mins [facility], [address] [place] [address] Dr Valenzuela 1000Suite 1000Michael [place], [id number], [place] tel:[phone] CVR - [place] [facility] [place] Chronic venous hypertension (idiopathic) with other complications of bilateral lower extremityPain in left lower legPain in right legPain in left legRestless legs syndromeVenous insufficiency (chronic) (peripheral)Bulk Driver mp and spasmLocalized edema May- 4 Navdeep IVORY RVT, CAR[place] Mike. [address] [facility], [facility] [address], [place], [place], [id number] , [place]. [phone] Referring Provider: Debbi Garcia, [address] [place] [address], [address]. tel:[phone] [facility], [address] [place] [address] Dr Valenzuela 1000Suite 1000Michael [place], [id number], [place] tel:[phone] CVR - [facility] Chronic venous hypertension (idiopathic) with other complications of bilateral lower extremity May- 4 Navdeep IVORY RVT, RPVI Robert. [address] [facility], [address], [place], [place], [id number] , [place]. tel:[phone] Referring Provider: Debbi Garcia, [address] [place] [address] [place], [address]. tel:[phone] Office/Outpt E&M Established 15 Mins [facility], [address], [place], [id number], [place] tel:[phone] [facility] - [place] [facility] [place] Body mass index (BMI) 33.0-33.9, adultChronic venous htn w oth comp of bilateral low extrm 3 Jose IVORY FACS RVT RPVI Deangelo Nicole. [address] [facility], [address], [place], [address], [place]. tel:[phone] Referring Provider: Deangelo Garcia MD FACS RVT RPVI, [address] [facility] [address], [place], [address]. tel:[phone] Family History Family Member Type Diagnosis Age At Onset No Information Payers Payer name Insurance type Covered constitution party ID Authoriza tion(s) Medicare MARCO ANTONIO MEDINA [id number] [facility] [id number] Social History Type Description Quantity Date Captured Comments Alcohol Use Details Unknown Caffeine Use Details Unknown Tobacco Use Status No Information Smoking Status No Information Sex Female Chief Complaint And Reason For Visit No Information Reason For Referral Reason For Referral No Information Plan Of Treatment Date Type Action Status Goal Diet education completed Goal Tobacco cessation counseling completed Goal Diet education completed Goal Tobacco [...] Information Instructions Date Instruction Additional Infor mation Diet education Related to Body mass index (BMI) 33.0-33.9, adult Giving Encouragement to exercise Related to Body mass index (BMI) 33.0-33.9, adult Lifestyle education Related to B javy mass index (BMI) 33.0-33.9, adult Patient education booklet given Related to Lymphedema, [...] to Body mass index (BMI) 33.0-33.9, adult Giving Encouragement to Exercise Related to Body mass index [BMI] 33.0-33.9, adult Diet education Related to Body mass index [BMI] 33.0-33.9, adult Assessments Type Assessment Date No Information Patient Care Teams Name Effective Dates (start - stop) Status Members No Information
--- OUTSIDE RECORDS SUMMARY | 2024-03-20 04:00 | XMS_ITS ---
Author Organization [facility] Address [address] [place] [address] Care Team Providers Care Direct Support Worker Name Role Phone Alma IVORY, Debbi Garcia Primary Care Provider Un available Ratna Chua Unavailable [phone] Encounters Encounter Location Date Provider Diagnosis [facility] [address] [place] [address] 03/20/2024 Ratna Chua Plan Of Treatment Next Appt Details Provider Name:Ratna boyd, 04/15/2025 08:30:00 AM, [address] [place], [address], Progress Notes * OLGA Leandra ADOB: [birth year] (74 yo F)Acc No.[id number]:03/20/2024 Progress Note Patient: Leandra HURTADO Provider: Kvng Chua DPM :1950 A ge:73 Y S ex:Female Date:03/20/2024 Address:[address] [place] [address] Pcp:Wilberto Cook Subjective: * Chief Complaints: * * Medical History: Objective: * Vitals: Assessment: Plan: * Treatment: * Images: * The named appointment provid er may or may not be the originator of this progress note, and it is not deemed complete until electronically signed by the appointment provider. Sign off status: Pending * Provider: Kvng Chua, CLARA Date: 0 03/20/2024 Generated for Yissel patel/Luca/Han on: 1 03/22/2024 04:48 PM EST
--- OUTSIDE RECORDS SUMMARY | 2024-07-24 04:00 | XMS_ITS ---
Author Organization [facility] Address [address] [place] [address] Care Team Providers Care Box Coverer Hand Name Role Phone Alma IVORY, Debbi Garcia Primary Care Provider Un available Ratna Chua Unavailable [phone] Encounters Encounter Location Date Provider Diagnosis [facility] [address] [place] [address] 07/24/2024 Ratna Chua Plan Of Treatment Next Appt Details Provider Name:Ratna boyd, 04/15/2025 08:30:00 AM, [address] [place], [address], Progress Notes * OLGA Leandra ADOB: [birth year] (74 yo F)Acc No.[id number]:07/24/2024 Progress Note Patient: Leandra HURTADO Provider: Kvng Chua DPM :1950 A ge:73 Y S ex:Female Date:07/24/2024 Address:[address] [place] [address] Pcp:Wilberto Cook Subjective: * Chief Complaints: * [...] 07/24/2024 Generated for Yissel patel/Luca/Han on: 1 03/22/2024 04:48 PM EST
--- OUTSIDE RECORDS SUMMARY | 2024-09-08 10:45 | XMS_ITS ---
[facility] Address [address] [place] [address] Care Team Providers Care Core Stacker Name Role Phone Alma IVORY, Debbi Garcia Primary Care Provider Un available Ratna Chua Unavailable [phone] Allergies Allergen (clinical drug ingredient) Drug/Non Drug Allergy documented on EMR Reaction Allergy Type Onset Date Status ibuprofen Advil Unknown Drug Allergy Active aspirin Aspirin Unknown Drug Allergy Active Non-steroidal anti-inflammatory agent (FN) NSAIDs stomach pain Drug Allergy Active Medications Medication SIG (Take, Route, Frequency, Duration) Notes Start Date End Date Status Evista Not-Taking Estradiol Not-Taking Premarin 1.25 MG Once a day No t-Taking Soma Not-Taking Lipitor 20 MG 1 tablet Orally Once a day Not-Taking Vitamin D 2000 UNIT Orally Active Walking Boot/Pneumatic As directed Wear Daily; Duration: Until further notice Not-Taking Lyrica 75 MG Orally Not-Long ing Methocarbamol 750 MG 1 tablet Orally every 4 hrs; Duration: 30 day(s) Not-Taking Vicodin 5-300 MG Orally Not -Taking PriLOSEC OTC 20 MG 1 tablet Orally Once a day; Duration: 30 day(s) Active traZODone HCl 100 MG 1 tablet at bedtime Orally Once a day; Duration: 30 day(s) Active Estrace 2 MG 1 tablet Orally Daily for Three Weeks, 1 Week off; Duration: 30 day(s) Active hydroCHLOROthiazide 12.5 MG Orally Active Hyoscyamine Sulfate 0.125 MG/5ML 5 ml as needed Orally every 4 hrs Active Elavil 10mg Active Dulcolax 10 MG Rectal Activ e oxyCODONE HCl 5 MG 1 tablet as needed Orally every 6 hrs PRN Active Atorvastatin Calcium 20 MG 1 tablet Oral ly Once a day; Duration: 30 day(s) Active Colace 100 MG 2 capsules Orally once daily Active Voltaren 1 % as directed Externally Active Encounters Encounter Location Date Provider Diagnosis [facility] [address] [address] 09/08/2024 Ratna Chua Plan Of Treatment Next Appt Details Provider Name:Ratna Jessica boyd, 04/15/2025 08:30:00 AM, [address] [place], [address], Progress Notes * Leandra ESPINOZA ADOB: [birth year] (74 yo F)Acc No.[id number]:09/08/2024 Progress Note Patient: Leandra HURTADO Provider: Kvng Chua DPM :1950 A ge:73 Y S ex:Female Date:09/08/2024 Address:[address] [place], [place] [id number] Pcp:Wilberto Cook Subjective: * Chief Complaints: * * Medical History: N europathy, Measles, Chicken pox, Arthritis, Back,Hip,and Knee pain, Foreign Body, Ankle Sprain, Arthralgia, Arthritis - Degenerative, Pain in Limb, Calcaneal spur, Lymphedema. * Medications: T aking Voltaren 1 % Gel as directed Externally , Taking Elavil , Notes to Pharmacist: 10mg, Taking oxyCODONE HCl 5 MG Capsule 1 tablet as needed Orally every 6 hrs , Notes to Pharmacist: PRN, Taking Atorvastatin Calcium 20 MG Tablet 1 tablet Orally Once a day , Taking Colace 100 MG Capsule 2 capsules Orally once daily , Taking Dulcolax 10 MG Suppository Rectal , Taking Estrace 2 MG Tablet 1 tablet Orally Daily for Three Weeks, 1 Week off , Taking hydroCHLOROthiazide 12.5 MG Capsule Orally , Taking Hyoscyamine Sulfate 0.125 MG/5ML Elixir 5 ml as needed Orally every 4 hrs , Taking PriLOSEC OTC 20 MG Tablet Delayed Release 1 tablet Orally Once a day , Taking traZODone HCl 100 MG Tablet 1 tablet at bedtime Orally Once a day , Taking Vitamin D 2000 UNIT Tablet Orally , Not-Taking/PRN Walking Boot/Pneumatic As directed Wear Daily , Not-Taking/PRN Lyrica 75 MG Capsule Orally , Not-Taking/PRN Methocarbamol 750 MG Tablet 1 tablet Orally every 4 hrs , Not-Taking/PRN Vicodin 5-300 MG Tablet Orally , Not-Taking/PRN Estradiol , Not-Taking/PRN Premarin 1.25 MG Once a day , Not-Taking/PRN Soma , Not-Taking/PRN Lipitor 20 MG Tablet 1 tablet Orally Once a day , Not-Taking/PRN Evista * Allergies: A spirin, Advil, NSAIDs: stomach pain. Objective: * Vitals: Assessment: Plan: * Treatment: * Images: * The named appointment provid er may or may not be the originator of this progress note, and it is not deemed complete until electronically signed by the appointment provider. Sign off status: Pending * Provider: Kvng Chua DPM Date: 0 09/08/2024 Generated for Yissel patel/Luca/Han on: 03/22/2024 04:48 PM EST
--- OUTSIDE RECORDS SUMMARY | 2024-12-15 02:30 | XMS_ITS ---
Author Organization [facility] Address [address] [place] [address] Care Team Providers Care Bore Mill Operator Name Role Phone Alma IVORY, Debbi Primary Care Provider Rashid Narayan [phone] REASON FOR VISIT screening Encounters Encounter Location Date Provider Diagnosis [facility] [place] [address] [place], [place] [phone] 12/15/2024 Rashid Wilson Plan Of Treatment No Information Progress Notes * TURNER ESPINOZA ADOB: [birth year] (74 yo F)Acc No.[id number]:12/15/2024 COLON WITH MAC Patient: TURNER HURTADO Provider: Sergei Wilson MD :1950 A ge:74 Y S ex:Female Date:12/15/2024 Address:[address] [facility] Pcp:Debbi Marquez MD Subjective: * Chief Complaints: [...] 0 12/15/2024 Generated for Printi ng/Faxing/eTransmitting on: 03/22/2024 04:48 PM EST
--- NOTE | 2025-01-20 14:01 | MHC.OFFVIS ---
Vital Signs 01/20/25 14:02 Height 5 ft 2 in Weight 136 lb BMI 24.9 Intake Visit Reasons: Follow up LE PVD, no testing Intake Note: follow up for bilateral LE numbness, coldness and discoloration. Left slightly worse than Right. Pt states painful for blankets to even touch her toes at night. Pt states she had EMG and was told its not neuropathy. Pt has lymphedema pumps and wears compression socks daily. States she had recent travel and had some pain behing left knee, believes she may have a VV w/ pain there. Lamination Operator Required: No Accompanied by: Self / Same As Patient Allergies buprenorphine (Belbuca) Allergy (Unknown, Verified 01/21/25 08:56) stomach upset NSAIDS (Non-Steroidal Anti-Inflamma Allergy (Unknown, Verified 01/21/25 08:56) Stomach Upset HPI HPI Follow up LE PVD, no testing: Details: The patient is a 74-year-old female presenting with numbness in toes and lymphedema. She reports persistent numbness and coldness in her toes, which is particularly bothersome when wearing shoes. She has a history of lymphedema, managed with compression stockings, and experiences tactile incontinence. The patient is under pain management for chronic pain and uses Elavil for nocturnal toe pain. An EMG ruled out neuropathy, and she is not diabetic. She has a history of partial bowel obstruction, treated during a trip to [place], and suspects a slipped lap band. Upon further evaluation she is complaining about difficulty ambulating more than a block. In addition she has been seen at our lymphedema clinic and has been using lymphedema compression which has provided some relief. She now presents for re-evaluation of her lower extremities. It has been affecting there daily activities including walking. It is noted more so in right leg. Patient appears that she had prior venous ablation and sclerotherapy done at [facility] for vein orthodox. Patient denies any history of DVT/ PE. Patient denies any history of phlebitis. Trial of compression includes - rhwz-joy-urucmgn and lymphedema pumps They now present for vascular evaluation regarding their varicose veins. [facility] Medical History Hx of right bundle branch block Patulous eustachian tube Small bowel obstruction Abdominal pain Osteoarthritis History of osteopenia Obesity (BMI 30.0-34.9) Prolapse of anterior vaginal wall Essential hypertension Dyslipidemia Irritable bowel syndrome Chronic pain syndrome Bilateral primary osteoarthritis of knee Spondylosis without myelopathy or radiculopathy, lumbar region Surgical History History of total right knee replacement Hx of colonoscopy Hx of laparoscopic gastric banding (~2004) History of tonsillectomy History of hysterectomy History of carpal tunnel surgery History of cholecystectomy History of laparoscopic appendectomy History of lumbar laminectomy History of reduction mammoplasty H/O abdominoplasty Hx of bariatric surgery Family History Mother Diabetes mellitus Essential hypertension Cardiovascular disease Daughter Wernicke-Korsakoff syndrome (alcoholic) Social History Household Members: None Household Members Other:: 0 Housing: House Are you a primary child care nurse to a significant other at home: No Do you presently have visiting nurse or other home services: No 75 years or older and lives alone: No Alcohol intake: never Patient Tobacco Use Status: Former Tobacco user Tobacco use type: Cigarette e-Cigarette/Vaping Use: Never Used Advance Directives Date on File: 12/22/21 service: No Current occupational status: retired Cognitive needs: No Hearing needs: No Vision needs: No Review of Systems Const Reports as per HPI ENT Reports no additional complaints Card Denies chest pain, Denies chest pain at rest and Denies chest pain with activity Resp Denies chest congestion and Denies cough GI Reports no additional complaints Musc Details: pain over varicosities, aching of lower extremities, swelling, cramping, heaviness and tiredness, itching Denies abnormal gait Skin/Breast Reports pruritus and Denies wounds Neuro Reports no additional complaints and Denies abnormal gait Psych Denies no additional complaints Physical Exam Vital Signs: BMI result Body Mass Index 24.9 Const General: cooperative, healthy appearing and comfortable Orientation/consciousness: oriented to person, oriented to place and oriented to time Neck Carotids: no bruits Chest Chest palpation & inspection: normal inspection of the chest and normal palpation of entire chest wall Resp Effort & Inspection: normal respiratory effort and able to speak in complete sentences Cardio Other: Bilateral DP signals only Rate: regular rate Heart sounds: S1 normal heart sound present and S2 normal heart sound present GI Inspection: Yes normal to inspection Skin Other: +2 edema, large rope-like varicosities greater than 4 mm CEAP Classification C4 - skin color changes Ep - Etiology Primary As - superficial veins P - reflux General skin exam: dry skin Neuro General: oriented to person, oriented to place and oriented to time Extrem Right lower extremity: full ROM, normal capillary refill and edema Left lower extremity: full ROM, normal capillary refill and edema Psych Mental Status: mental status grossly normal Assessment & Plan Assessment & Plan (1) PAD (peripheral artery disease): Code(s): I73.9 - Peripheral vascular disease, unspecified Category: Medical Plan: I was unable to appreciate palpable pulses. We will get baseline arterial testing to rule that out. (2) Varicose veins of right lower extremity with inflammation: Code(s): I83.11 - Varicose veins of right lower extremity with inflammation Category: Medical Plan: She does have significant swelling and a history of venous disease. I have taken the liberty of reordering venous ultrasounds to assess if there is any additional venous reflux and rule that out. (3) Lymphedema: Code(s): I89.0 - Lymphedema, not elsewhere classified Category: Medical Plan: Currently compliant with lymphedema pumps and encouraged to continue to use them. We will work her up for arterial and venous disease. Orders: Orders US arterial duplex LE BI Today I73.9 - Peripheral vascular disease, unspecified US venous duplex LE BI Today I83.11 - Varicose veins of right lower extremity with inflammation Coding Level of Care Code Est Pt Level 4 (94497) Complex EM visit Add On G2211 Diagnoses PAD (peripheral artery disease) I73.9 Varicose veins of right lower extremity with inflammation I83.11 Lymphedema I89.0
[2025-01-20 14:02] VITALS: BMI 24.9
--- OUTSIDE RECORDS SUMMARY | 2025-01-20 16:48 | XMS_ITS | Clinical Summary ---
Author Organization [facility] Address [address] [place] [address] Care Team Providers Care Communications Designer Name Role Phone Debbi Marquez MD Primary Care Provider Encounters Date Type Department Care Team Description 12/03/2024 12:30 PM EDT Procedure visit [facility] Department [address] [place] [address] Kj Olsen, AUD, CCC-A Sensorineural hearing loss, [...] Screening 03/19/2024 Depression Screening and Follow-Up 03/19/2024 Fall Risk Screening 03/19/2024 Health Care Proxy Review 03/19/2024 Social Drivers of Health Madelaine ual Screening 03/19/2024 COVID-19 Vaccine (1 - 2024-2 6 season) 2024 Influenza Vaccine (#1) 2024 RSV Vaccine (60+ years old a nd patients) (1 - 1-dose 75+ series) 10/24/2027 Hepatitis B Vaccines Aged Out No long er eligible based on patient's age to complete this topic Insurance MEDICARE [facility] Care Teams Communications Designer Relationship Specialty Start Date End Date Debbi Marquez MD [address] [place] [address] PCP - General Internal Medicine 10/23/24
--- OUTSIDE RECORDS SUMMARY | 2025-01-20 16:48 | XMS_ITS | Patient Health Record ---
Author Organization [facility] Address [address] [facility] [place] [address] Care Team Providers Care Water Operator Name Role Phone Alma IVORY, Debbi Garcia Primary Care Provider Un available Ratna Chua Unavailable [phone] Allergies Allergen (clinical drug ingredient) Drug/Non Drug Allergy documented on EMR Reaction Allergy Type Onset Date Status ibuprofen Advil Unknown Drug Allergy Active aspirin Aspirin Unknown Drug Allergy Active Non-steroidal anti-inflammatory agent (FN) NSAIDs stomach pain Drug Allergy Active Reason For Referral No Information Medications Medication SIG (Take, Route, Frequency, Duration) Notes Start Date End Date Status hydroCHLOROthiazide 12.5 MG Orally Active Soma Not-Taking Premarin 1.25 MG Once a day No t-Taking Estrace 2 MG 1 tablet Orally Daily for Three Weeks, 1 Week off; Duration: 30 day(s) Active Dulcolax 10 MG Rectal Activ e Estradiol Not-Taking Voltaren 1 % as directed Externally Active PriLOSEC OTC 20 MG 1 tablet Orally Once a day; Duration: 30 day(s) Not-Taking Vitamin D 2000 UNIT Orally Active traZODone HCl 100 MG 1 tablet at bedtime Orally Once a day; Duration: 30 day(s) Active Evista Not-Taking Hyoscyamine Sulfate 0.125 MG/5ML 5 ml as needed Orally every 4 hrs Active Lipitor 20 MG 1 tablet Orally Once a day Not-Taking Colace 100 MG 2 capsules Orally once daily Active Vicodin 5-300 MG Orally Not -Taking Compression Stockings 20-30m m Hg 1 pair wear daily; Duration: 30 days Active Atorvastatin Calcium 20 MG 1 tablet Oral ly Once a day; Duration: 30 day(s) Active Methocarbamol 750 MG 1 tablet Orally every 4 hrs; Duration: 30 day(s) Not-Taking oxyCODONE HCl 5 MG 1 tablet as needed Orally every 6 hrs PRN Active Lyrica 75 MG Orally Not-Long ing Elavil 75mg Active Walking Boot/Pneumatic As directed Wear Daily; Duration: Until further notice Not-Taking Immunizations Vaccine Route Administration Date Status Comme nts Influenza Unknown 12/18/2023 Administered Influenza Unknown 12/18/2024 Administered COVID-19 [employer] Clint/Gelacio Unknown 01/14/2021 [...] primary osteoarthritis of the ankle and/or foot (157483916) Primary osteoarthritis , left ankle and foot (M19.072) Active confirmed Problem Acquired hallux valgus (01152890) Hallux valgus (acquired), left foot (M20.12) Active confirmed Problem Acquired hammer toe of left foot (0745368832332815) Other hammer toe(s) (acquired), left foot (M20.42) Active confirmed Problem Lymphedema (30175574) Lymphedema (I89.0) Active confirmed Problem Left metatarsus adductus (disorder) (47036356353483562 ) 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 Vital Signs Blood pressure diastolic 60 mm Hg 12/31/2024 Height 5ft2in in 12/31/2024 Blood pressure systolic 126 mm Hg 12/31/2024 Weight 150 lbs 12/31/2024 BMI 27.43 kg/m2 12/31/2024 Procedures Procedure Date Ordered Date Performed Result Body Sit e , Y0572-PSYWR/INJECT, JOINT/BURSA 03/20/2024 N/A , C1082-XSDLB/INJECT, JOINT/BURSA 09/08/2024 N/A 03003, D9212-VNDID/INJECT, JOINT/BURSA 12/31/2024 N/A Encounters Encounter Location Date Provider Diagnosis [address] [address] 03/20/2024 Ratna Chua Sinus tarsitis of left foot M25.[address] [address] 09/08/2024 Ratna Chua Sinus tarsitis of left foot M25.[address] [address] 12/31/2024 Ratna Chua Sinus tarsitis of left foot M25.572 and Edema, lower extremity R60.[address] [address] 07/22/2024 Ratna Chua Assessments Encounter Date Diagnosis (ICD Code) Assessment Notes Treatment Notes Treatment Clinical Notes Section Notes 03/20/2024 Sinus tarsitis of left foot (ICD-10 - M25.572) 09/08/2024 Sinus tarsitis of left foot (ICD-10 - M25.572) 12/31/2024 Sinus tarsitis of left foot (ICD-10 - M25.572) 12/31/2024 Edema, lower extremity (ICD-10 - R60.0) 03/20/2024 Other Patient Educated with: RICE THERAPY.pdf (RICE THERAPY.pdf) Patient Educated with: INJECTIONTHERA PY.pdf (INJECTIONTHER APY.pdf) 09/08/2024 Other Patient Educated with: RICE THERAPY.pdf (RICE THERAPY.pdf) Patient Educated with: INJECTIONTHERA PY.pdf (INJECTIONTHER APY.pdf) 12/31/2024 Other Patient Educated with: RICE THERAPY.pdf (RICE THERAPY.pdf) Patient Educated with: INJECTIONTHERA PY.pdf (INJECTIONTHER APY.pdf) Plan Of Treatment Pending Test Test Name Order Date X ray : Foot, right 2V 09/05/2011 X ray : Foot, left 3V 08/05/2018 X ray : Foot, left 3V 06/01/2021 86946, J0702- INJECT TENDON ORIGIN/INSER T 12/27/2022 10764, J0702- INJECT or DRAIN, JOINT/BUR SA 03/08/2023, Z9897-BJYRP/INJECT, JOINT/BURSA 0 03/20/2024, K9468-VBDFB/INJECT, JOINT/BURSA 0 09/08/2024, I8258-QMGKQ/INJECT, JOINT/BURSA 1 , L3151-FWZIX/INJECT, JOINT/BURSA 0 10/16/2018 X ray : Ankle, right 3V 09/05/2011 Next Appt Details Provider Name:Ratna boyd, 04/15/2025 08:30:00 AM, [address] [facility], [place], [address], Insurance Providers Payer Name Payer Address Payer Phone Subscriber Number Group Number Insured Name Patient Relationship to Insured Coverage Start Date Coverage End Date Medicare National Govt Svcs Inc [address] [place] [address] [id number] Johnlisa Leandra Self - patient is the insured [employer] ([employer]) [address] [place] [address] [id number] Leonor Leandra Self - patient is the insured Medical [...]
--- OUTSIDE RECORDS SUMMARY | 2025-01-20 16:48 | XMS_ITS | Clinical Summary ---
Author Organization [facility] Address [address] [place] [address] Care Team Providers Care Package Delivery Room Service Runner Name Role Phone Unavailable Primary Care Provider [...]
--- OUTSIDE RECORDS SUMMARY | 2025-01-20 16:48 | XMS_ITS | Patient Health Record ---
Author Organization [facility] Address [address] [place] [address] Care Team Providers Care Recruiter Coordinator Name Role Phone Alma IVORY, Debbi Primary Care Provider Rashid Narayan Unavailable [phone] Allergies Allergen (clinical drug ingredient) Drug/Non Drug [...] Status Risk Notes Problem Colon cancer screening (690196511) Colon cancer screening (Z12.11) Active confirmed Problem Abdominal bloating (301600133) Abdominal bloating (R14.0) Active confirmed Problem Preprocedural examination (780958279905051) Preprocedural examination (Z01.818) Active confirmed Problem Irritable bowel syndrome characterized by constipation (568797621) Irritable bowel syndrome with constipation (K58.1) Active confirmed Problem Flatulence, eructation and gas pain (974182185) Abdominal gas pain (R14.1) Active confirmed Problem Long-term current use of drug therapy (344267946) High risk medications (not anticoagulants) long-term use (Z79.899) Active confirmed Vital Signs Blood pressure diastolic 77 mm Hg 09/11/2024 Height 62 in 09/11/2024 Blood pressure systolic 111 mm Hg 09/11/2024 Weight 140 lbs 09/11/2024 BMI 25.6 kg/m2 09/11/2024 Procedures Procedure Date Ordered Date Performed Result Body Sit e COLONOSCOPY 09/11/2024 N/A Encounters Encounter Location Date Provider Diagnosis [facility] [place] [address] [place] [phone] 12/15/2024 Rashid Wilson [facility] [address] [place] [address] 09/11/2024 Rashid Wilson Colon cancer screeni ng Z12.11 ; Irritable bowel syndrome with constipation K58.1 ; Preprocedural examination Z01.818 and High risk medications (not anticoagulants) long-term use Z79.899 [facility] [address] [place] [address] 10/04/2024 Rashid Wilson Assessments Encounter Date Diagnosis [...] Test Test Name Order Date COLONOSCOPY 11/04/2013 Insurance Providers Payer Name Payer Address Payer Phone Subscriber Number Group Number Insured Name Patient Relationship to Insured Coverage Start Date Coverage End Date MEDICARE OF [place] [address] [place] [address] [id number] LEANDRA ESPINOZA Self - patient is the insured 8 [employer] Insurance (Biolase) [address] [place] [address] [phone] [id number] LEANDRA ESPINOZA Self - patient is the insured Medical (General) History Medical History History ICD Code 06/07/2004 Colonoscopy w/small internal hemorrhoids Uses Hctz for edema due to the Lyrica IBS--uses Hyoscyamine prn wi th relief--constipation, but stable on her bowel regimen Hyperlipidemia Shingles Denies IN,DM,CVA,Lung disease,renal dise ase Back pain with disc [...]
== END 2025-01-20 14:50 | disposition home or self-care (01) ==
LOC: HO.HVS 13:41
PROVIDERS: PCP Internal Medicine; Visit Provider Surgery Vascular Surgery
DX: I73.9 Peripheral vascular disease, unspecified (principal); I83.11 Varicose veins of right lower extremity with inflammation; I89.0 Lymphedema, not elsewhere classified
CPT/HCPCS: 99214; G2211

== ENCOUNTER → 2025-01-20 13:40 | Outpatient (BNVA) | payer MEDICARE, OTHER, SELFPAY | PROVIDERS: PCP Internal Medicine; Visit Provider Surgery Vascular Surgery | DX: I83.11 Varicose veins of right lower extremity with inflammation (principal); I73.9 Peripheral vascular disease, unspecified | CPT/HCPCS: 99212 ==

== ENCOUNTER 2025-01-21 08:46 | Outpatient (AMB) | payer MEDICARE, OTHER, SELFPAY ==
--- OUTSIDE RECORDS SUMMARY | 2024-03-20 04:00 | XMS_ITS ---
Author Organization [facility] Address [address] [place] [address] Care Team Providers Care Director Women Name Role Phone Alma IVORY, Debbi Garcia Primary Care Provider Un available Ratna Chua Unavailable [phone] Encounters Encounter Location Date Provider Diagnosis [facility] [address] [place] [address] 03/20/2024 Ratna Chua Plan Of Treatment Next Appt Details Provider Name:Ratna boyd, 04/15/2025 08:30:00 AM, [address] [place], [address], Progress Notes * OLGA Leandra ADOB: [birth year] (74 yo F)Acc No.[id number]:03/20/2024 Progress Note Patient: Leandra HURTADO Provider: Kvng Chua DPM :1950 A ge:73 Y S ex:Female Date:03/20/2024 Address:[address] [place] [address] Pcp:Wilberto Cook Subjective: * Chief Complaints: * * Medical History: Objective: * Vitals: Assessment: Plan: * Treatment: * Images: * The named appointment provid er may or may not be the originator of this progress note, and it is not deemed complete until electronically signed by the appointment provider. Sign off status: Pending * Provider: Kvng Chua DPM Date: 0 03/20/2024 Generated for Yissel patel/Luca/Han on: 1 03/23/2024 09:14 AM EST
--- OUTSIDE RECORDS SUMMARY | 2024-07-24 04:00 | XMS_ITS ---
Author Organization [facility] Address [address] [place] [address] Care Team Providers Care Informatics Educator Name Role Phone Alma IVORY, Debbi Garcia Primary Care Provider Un available Ratna Chua Unavailable [phone] Encounters Encounter Location Date Provider Diagnosis [facility] [address] [place] [address] 07/24/2024 Ratna Chua Plan Of Treatment Next Appt Details Provider Name:Ratna boyd, 04/15/2025 08:30:00 AM, [address] [place], [address], Progress Notes * OLGA Leandra ADOB: [birth year] (74 yo F)Acc No.[id number]:07/24/2024 Progress Note Patient: Leandra HURTADO Provider: Kvng Chua DPM :1950 A ge:73 Y S ex:Female Date:07/24/2024 Address:[address] [place] [address] Pcp:Wilberto Cook Subjective: * Chief Complaints: * * Medical History: Objective: * Vitals: Assessment: Plan: * Treatment: * Images: * The named appointment provid er may or may not be the originator of this progress note, and it is not deemed complete until electronically signed by the appointment provider. Sign off status: Pending * Provider: Kvng Chua DPM Date: 0 07/24/2024 Generated for Yissel patel/Luca/Han on: 1 03/23/2024 09:13 AM EST
--- OUTSIDE RECORDS SUMMARY | 2024-09-08 10:45 | XMS_ITS ---
Author Organization [facility] Address [address] [place] [address] Care Team Providers Care Primary Care Provider Name Role Phone Alma IVORY, Debbi Garcia Primary Care Provider Un available Ratna Chua Unavailable [phone] Allergies Allergen (clinical drug ingredient) Drug/Non Drug [...] Active Encounters Encounter Location Date Provider Diagnosis [facility] [address] [address] 09/08/2024 Ratna Chua Plan Of Treatment Next Appt Details Provider Name:Ratna Jessica boyd, 04/15/2025 08:30:00 AM, [address] [place], [address], Progress Notes * Leandra ESPINOZA ADOB: [birth year] (74 yo F)Acc No.[id number]:09/08/2024 Progress Note Patient: Leandra HURTADO Provider: Kvng Chua DPM :1950 A ge:73 Y S ex:Female Date:09/08/2024 Address:[address] [place], [place] [id number] Pcp:Wilberto Cook Subjective: * Chief Complaints: * [...] DPM Date: 0 09/08/2024 Generated for Yissel patel/Luca/aHn on: 03/23/2024 09:13 AM EST
--- OUTSIDE RECORDS SUMMARY | 2024-12-15 02:30 | XMS_ITS ---
Author Organization [facility] Address [address] [place] [address] Care Team Providers Care Business Banking Manager Name Role Phone Alma IVORY, Debbi Primary Care Provider Rashid Narayan [phone] REASON FOR VISIT screening Encounters Encounter Location Date Provider Diagnosis [facility] [place] [address] [place], [place] [phone] 12/15/2024 Rashid Wilson Plan Of Treatment No Information Progress Notes * TURNER ESPINOZA ADOB: [birth year] (74 yo F)Acc No.[id number]:12/15/2024 COLON WITH MAC Patient: TURNER HURTADO Provider: Sergei Wilson MD :1950 A ge:74 Y S ex:Female Date:12/15/2024 Address:[address] [facility] Pcp:Debbi Marquez MD Subjective: * Chief Complaints: * 1 . Screening. * Medical History: Objective: * Vitals: Assessment: Plan: * Treatment: * * The named appointment provid er may or may not be the originator of this progress note, and it is not deemed complete until electronically signed by the appointment provider. Sign off status: Pending * Provider: Sergei Wilson MD Date: 0 12/15/2024 Generated for Printi ng/Faxing/eTransmitting on: 1 03/23/2024 09:14 AM EST
[2025-01-21 08:54] VITALS: BP 153/83; PULSE 92; RESP 16; O2SAT 99; BMI 24.9
--- NOTE | 2025-01-21 08:54 | MHC.OFFVIS ---
Vital Signs 01/21/25 08:54 Height 5 ft 2 in Weight 136 lb BMI 24.9 BP 153/83 H Blood Pressure Location Lt brachial Position Sitting Respiration 16 Pulse 92 Pulse Source Pulse Oximeter Pulse Oximetry (%) 99 Oxygen Delivery Method Room Air Intake Visit Reasons: Pill Count Intake Note: Patient here for a pill count routine for Oxycodone. Per directions patient should have 0 pills. Patient presented 0 pills. Last took 01/18/25. Mold Release Worker Required: No Accompanied by: Self / Same As Patient Allergies buprenorphine (Belbuca) Allergy (Unknown, Verified 01/21/25 08:56) stomach upset NSAIDS (Non-Steroidal Anti-Inflamma Allergy (Unknown, Verified 01/21/25 08:56) Stomach Upset HPI Comments Details: Leandra presents back to the office today for follow up chronic pain and chronic opioid therapy management. Her pill count is correct. She is prescribed oxycodone 5 mg twice a day p.r.n. pain. [place]. She was admitted to the hospital with small bowel obstruction . Possibility exists that the reason for small bowel obstruction is Movantik. I recommended her last time not to take Movantik. I will prescribe her oxycodone today because she ran out of the medications, I will see her in 3 weeks. Next appointment must be scheduled in 3 weeks again. Only after that we will be in the middle of her prescription cycle. We discussed in the past sprint PNS, in the distant past we did medial branch blocks for the patient which did not result in significant pain improvement. Her pain is mostly axial and is being aggravated by flexing backwards. On the MRI dictated as below widespread spondylosis is demonstrated in the patient's lumbar spine. I offered the patient to perform again diagnostic medial branch blocks in the order to prepare her for sprint PNS. I also gave her sprint PNS brochure to read. Denies side effects including somnolence,itching, dyspnea, rash, dizziness, urinary retention or weakness. She has PHQ score is equal to 1, Her opioid addiction risk score is equal to 2 Total score is equal to 3 she is low risk for opioid addiction. [facility] Medical History Hx of right bundle branch block Patulous eustachian tube Small bowel obstruction Abdominal pain Osteoarthritis History of osteopenia Obesity (BMI 30.0-34.9) Prolapse of anterior vaginal wall Essential hypertension Dyslipidemia Irritable bowel syndrome Chronic pain syndrome Bilateral primary osteoarthritis of knee Spondylosis without myelopathy or radiculopathy, lumbar region Surgical History History of total right knee replacement Hx of colonoscopy Hx of laparoscopic gastric banding (~2004) History of tonsillectomy History of hysterectomy History of carpal tunnel surgery History of cholecystectomy History of laparoscopic appendectomy History of lumbar laminectomy History of reduction mammoplasty H/O abdominoplasty Hx of bariatric surgery Family History Mother Diabetes mellitus Essential hypertension Cardiovascular disease Daughter Wernicke-Korsakoff syndrome (alcoholic) Social History Household Members: None Household Members Other:: 0 Housing: House Are you a primary ocular care aide to a significant other at home: No Do you presently have visiting nurse or other home services: No 75 years or older and lives alone: No Alcohol intake: never Patient Tobacco Use Status: Former Tobacco user Tobacco use type: Cigarette e-Cigarette/Vaping Use: Never Used Advance Directives Date on File: 12/22/21 service: No Current occupational status: retired Cognitive needs: No Hearing needs: No Vision needs: No Review of Systems Const All systems reviewed & are unremarkable except as noted in HPI and below Physical Exam Vital Signs: Last Vital Signs Pulse 92 01/21/25 08:54 Resp 16 01/21/25 08:54 BP 153/83 H 01/21/25 08:54 Pulse Ox 99 01/21/25 08:54 Oxygen Delivery Method Room Air 01/21/25 08:54 BMI result Body Mass Index 24.9 Const General: cooperative, comfortable and well developed Eyes General: appearance normal, both eyes and all related structures EOM: EOMs intact bilaterally Resp Effort & Inspection: normal respiratory effort, able to speak in complete sentences, normal respiratory pattern, no audible wheezes and no cough Cardio Jugular venous distension: no JVD Back/Spine/Pelvis Other: She is able to walk on her tip toes as well as on her heels. She denies radiation of the pain from lower back to the extremities. She denies Valsalva maneuver positive for pain increase. She is able to flex forward and flex backward admits severe pain with flexing backward the majority of the pain is located in the projection of sacral bone on palpation. There is no radiation on palpation. She denies bowel and bladder dysfunction. Bending forward and bending backwards are not very comfortable but bending backwards aggravates her pain more. Nigel test is negative for sacroiliac joint pathology. Palpation of the sacroiliac joint projection to the skin is also negative.. Assessment & Plan Assessment & Plan (1) Peripheral neuropathy: Code(s): G62.9 - Polyneuropathy, unspecified Category: Medical (2) Spondylosis without myelopathy or radiculopathy, lumbar region: Code(s): M47.816 - Spondylosis without myelopathy or radiculopathy, lumbar region Category: Medical (3) Bilateral primary osteoarthritis of knee: Code(s): M17.0 - Bilateral primary osteoarthritis of knee Category: Medical (4) Chronic pain syndrome: Code(s): G89.4 - Chronic pain syndrome Category: Medical (5) Disc degeneration, lumbar: Code(s): M51.36 - Other intervertebral disc degeneration, lumbar region Category: Medical (6) Trochanteric bursitis, left hip: Code(s): M70.62 - Trochanteric bursitis, left hip Category: Medical Plan Masspat was reviewed and without concerns. The patient ran out of her meds because [place] was [place] the [place]. I will prescribe her medications now and I will see her in 3 weeks. Next time she should be scheduled an appointment in 3 weeks as well. This will bring her to the middle of her prescription cycle. We will discuss physical therapy again at her next appointment. Last time she did not go for physical therapy because she was admitted to the hospital. It could be that she developed small bowel obstruction secondary to Movantik. I told her not to take it for now. In the past we discuss sprint PNS to treat her lower back pain, her MBB was indicative of the facet generated pain. However patient is not eager at this time to consider this procedure. Medications: Refilled oxycodone Partial Fill upon patient request. 5 mg PO BID PRN 60 tabs 0RF pain 30 days M17.0 - Bilateral primary osteoarthritis of knee, M96.1 - Postlaminectomy syndrome, not elsewhere classified, Z79.891 - terminal superintendent (current) use of opiate analgesic Coding Level of Care Code Est Pt Level 3 (32520) Diagnoses Peripheral neuropathy G62.9 Spondylosis without myelopathy or radiculopathy, lumbar region M47.816 Bilateral primary osteoarthritis of knee M17.0 Chronic pain syndrome G89.4 Disc degeneration, lumbar M51.36 Trochanteric bursitis, left hip M70.62
--- OUTSIDE RECORDS SUMMARY | 2025-01-21 09:13 | XMS_ITS | Patient Health Record ---
Author Organization [facility] Address [address] [place] [address] Care Team Providers Care Digester Hand Name Role Phone Alma IVORY, Debbi Primary Care Provider Rashid Narayan Unavailable [phone] Allergies Allergen (clinical drug ingredient) Drug/Non Drug [...] Status Risk Notes Problem Colon cancer screening (309789107) Colon cancer screening (Z12.11) Active confirmed Problem Abdominal bloating (247553725) Abdominal bloating (R14.0) Active confirmed Problem Preprocedural examination (892780185833549) Preprocedural examination (Z01.818) Active confirmed Problem Irritable bowel syndrome characterized by constipation (702995202) Irritable bowel syndrome with constipation (K58.1) Active confirmed Problem Flatulence, eructation and gas pain (151823308) Abdominal gas pain (R14.1) Active confirmed Problem Long-term current use of drug therapy (856949915) High risk medications (not anticoagulants) long-term use (Z79.899) Active confirmed Vital Signs Blood pressure diastolic 77 mm Hg 09/11/2024 Height 62 in 09/11/2024 Blood pressure systolic 111 mm Hg 09/11/2024 Weight 140 lbs 09/11/2024 BMI 25.6 kg/m2 09/11/2024 Procedures Procedure Date Ordered Date Performed Result Body Sit e COLONOSCOPY 09/11/2024 N/A Encounters Encounter Location Date Provider Diagnosis [facility] Outpatient [address] [place] [id number] 12/15/[address] [facility] [address] [place] [phone] 09/11/2024 Rashid Wilson Colon cancer screeni ng Z12.11 ; Irritable bowel syndrome with constipation K58.1 ; Preprocedural examination Z01.818 and High risk medications (not anticoagulants) long-term use Z79.899 [facility] [address] [place] [phone] 10/04/2024 Rashid Wilson Assessments Encounter Date Diagnosis [...] Date MEDICARE OF [place] [address] [place] [address] [id number] LEANDRA ESPINOZA Self - patient is the insured 8 [employer] ([employer]) [address] [place] [address] [id number] LEANDRA ESPINOZA Self - patient is the insured Medical (General) History Medical History History ICD Code 06/07/2004 Colonoscopy w/small internal hemorrhoids Uses Hctz for edema due to the Lyrica IBS--uses Hyoscyamine prn wi th relief--constipation, but stable on her bowel regimen Hyperlipidemia Shingles Denies HI,DM,CVA,Lung disease,renal dise ase Back pain with disc [...]
--- OUTSIDE RECORDS SUMMARY | 2025-01-21 09:14 | XMS_ITS | Clinical Summary ---
Author Organization [facility] ity Address [address] [place] [address] Care Team Providers Care Dot Compliance Specialist Name Role Phone Unavailable Primary Care [...]
--- OUTSIDE RECORDS SUMMARY | 2025-01-21 09:14 | XMS_ITS | Patient Health Record ---
Author Organization [facility] Address [address] [place] [address] Care Team Providers Care Tig Welder Name Role Phone Alma IVORY, Debbi Garcia Primary Care Provider Un available Ratna Chua Unavailable [phone] Allergies Allergen (clinical drug ingredient) Drug/Non Drug [...] primary osteoarthritis of the ankle and/or foot (882659720) Primary osteoarthritis , left ankle and foot (M19.072) Active confirmed Problem Acquired hallux valgus (60479008) Hallux valgus (acquired), left foot (M20.12) Active confirmed Problem Acquired hammer toe of left foot (5890067293358497) Other hammer toe(s) (acquired), left foot (M20.42) Active confirmed Problem Lymphedema (66633654) Lymphedema (I89.0) Active confirmed Problem Left metatarsus adductus (disorder) (13657436299569857 ) 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 Vital Signs Blood pressure diastolic 60 mm Hg 12/31/2024 Height 5ft2in in 12/31/2024 Blood pressure systolic 126 mm Hg 12/31/2024 Weight 150 lbs 12/31/2024 BMI 27.43 kg/m2 12/31/2024 Procedures Procedure Date Ordered Date Performed Result Body Sit e , P6185-RVAVR/INJECT, JOINT/BURSA 03/20/2024 N/A , U1778-EJSRO/INJECT, JOINT/BURSA 09/08/2024 N/A 75250, W7676-DDJHV/INJECT, JOINT/BURSA 12/31/2024 N/A Encounters Encounter Location Date Provider Diagnosis [address] [address] 03/20/2024 Ratna Chua Sinus tarsitis of left foot M25.[address] [address] 09/08/2024 Ratna Chua Sinus tarsitis of left foot M25.[address] [address] 12/31/2024 Ratna Chua Sinus tarsitis of left foot M25.572 and Edema, lower extremity R60.[address] [address] 07/22/2024 Ratna Chua Assessments Encounter Date Diagnosis [...] X ray : Foot, left 3V 06/01/2021 32489, J0702- INJECT TENDON ORIGIN/INSER T 12/27/2022 51445, J0702- INJECT or DRAIN, JOINT/BUR SA 03/08/2023, W1803-ZBCNQ/INJECT, JOINT/BURSA 0 03/20/2024, E9555-RIKLH/INJECT, JOINT/BURSA 0 09/08/2024, C7383-JJDKX/INJECT, JOINT/BURSA 1 , L3357-ZLSJI/INJECT, JOINT/BURSA 0 10/16/2018 X ray : Ankle, right 3V 09/05/2011 Next Appt Details Provider Name:Ratna boyd, 04/15/2025 08:30:00 AM, [address] [facility], [place], [address], Insurance Providers Payer Name Payer Address Payer Phone Subscriber Number Group Number Insured Name Patient Relationship to Insured Coverage Start Date Coverage End Date Medicare National [employer]t [employer] [address] [place] [address] [id number] Johnlisa Leandra Self - patient is the insured [employer] ([employer]) [address] [place] [address] [id number] Leonor Leandra Self - patient is [...] abdominoplasty 11/11 Pain Stimulator removed- 3 days [facility] 08/28/2018
--- OUTSIDE RECORDS SUMMARY | 2025-01-21 09:14 | XMS_ITS | Clinical Summary ---
Author Organization [facility] Address [address] [place] [address] Care Team Providers Care And Rescue Fire Fighter Crash Fire Name Role Phone Debbi Marquez MD Primary Care Provider Encounters Date Type Department Care Team Description 12/03/2024 12:30 PM EDT Procedure visit [facility] Audiology Department [address] [place] [id number] Kj Olsen, AUD, CCC-A Sensorineural hearing loss, [...] age to complete this topic Insurance MEDICARE [facility] Care Teams And Rescue Fire Fighter Crash Fire Relationship Specialty Start Date End Date Debbi Marquez MD [address] [place] [address] PCP - General Internal Medicine 10/23/24
== END 2025-01-21 09:07 | disposition home or self-care (01) ==
LOC: HO.PMC 08:47
PROVIDERS: PCP Internal Medicine; Visit Provider Anesthesiology
DX: M47.816 Spondylosis without myelopathy or radiculopathy, lumbar region (principal); M17.0 Bilateral primary osteoarthritis of knee; G62.9 Polyneuropathy, unspecified; G89.4 Chronic pain syndrome; M51.369 Other intervertebral disc degeneration, lumbar region without mention of lumbar back pain or lower extremity pain; M70.62 Trochanteric bursitis, left hip
CPT/HCPCS: 99213

== ENCOUNTER → 2025-01-21 08:46 | Outpatient (BNVA) | payer MEDICARE, OTHER, SELFPAY | PROVIDERS: PCP Internal Medicine; Visit Provider Anesthesiology | DX: G89.4 Chronic pain syndrome (principal); M70.62 Trochanteric bursitis, left hip; M51.360 Other intervertebral disc degeneration, lumbar region with discogenic back pain only; M17.0 Bilateral primary osteoarthritis of knee; M47.816 Spondylosis without myelopathy or radiculopathy, lumbar region; G62.9 Polyneuropathy, unspecified | CPT/HCPCS: 99212 ==

== ENCOUNTER 2025-02-18 08:01 | Outpatient (REF) | payer MEDICARE, OTHER, SELFPAY ==
--- OUTSIDE RECORDS SUMMARY | 2023-08-10 07:23 | XMS_ITS | Continuity of Care Document ---
Author Organization [facility] Address [address] [place] [address] Phone Care Team Providers Care Explosive Ordnance Technician Name Role Phone Navdeep IVORY, RVT, RPVI, Rashid Unavailable U navailable Allergies, Adverse Reactions, Alerts Substance Reaction Status Criticality BUPRENORPHINE HCL Active No Informa tion NSAIDS (Non-Steroidal Anti-Inflammatory Drug) Active No Information Medications Medication Instructions Dosage Effective Dates (start - stop) Status Comments estradiol 2 mg tablet - Active hydrochlorothiazide 12.5 mg tablet - Active hydrocodone 10 mg-acetaminophen 325 mg/15 mL (15 mL) oral solution - Active atorvastatin 20 mg tablet - Acti ve Vitamin D3 50 mcg (2,000 uni t) tablet - Active Colace 100 mg capsule - Active hyoscyamine 0.125 mg/mL oral drops - Active magnesium 250 mg (as magnesi um oxide) tablet - Active Procedures Procedure Date Office/Outpt E&M Established 15 Mins- CT & [place] Duplex Scan-extrem Veins; Comp- CT & [place] Duplex Scan-extrem Veins; Uni/ CT & [place] A Inj Scleros Solut; Mx Veins 1- CT & [place] A Ultrason Guidan Needle Bx-rad- CT & [place] A Duplex Scan-extrem Veins; Uni/ CT & [place] A Inj Scleros Solut; Mx Veins 1- CT & [place] M Ultrason Guidan Needle Bx-rad- CT & [place] M Office/Outpt E&M Established 25 Mins May Duplex Scan-extrem Veins; Comp Office/Outpt E&M Established 15 Mins Aug Advance Directives Directive Yes / No Effective Date File Name No Information Encounters Encounter Description Practice Location Reason(s) For Visit Diagnoses Date Provider Providers Copied on Encounter [facility] MD WETZEL, [address] [place] [address] Dr Valenzuela [address]Michael [place], [id number], tel:[phone] [facility] [place] No Information 4 Navdeep IVORY RVT, CAROLA Mike. [address] [address], [facility] [place] [id number] , [place]. tel:[phone] Office/Outpt E&M Established 15 Mins- CT & [place] [facility] MD WETZEL, [address] [place] [address] Dr Valenzuela 1000SuMichael toure [place], [id number], [place] tel:[phone] [facility] [place] Lymphedema, not elsewhere classifiedCramp and spasmRestless legs syndrome 4 Navdeep IVORY RVT, CAROLA Mike. [address] [address], [place], [place], [id number] , [place]. tel:[phone] Referring Provider: Debbi Garcia, [address] [place] [address], [address]. tel:[phone] [facility] MD WETZEL, [address] [place] [address] Dr Valenzuela [address]Suite Michael Sanchez [place], [id number], [place] tel:[phone] CVR - [facility] Chronic venous hypertension (idiopathic) with other complications of bilateral lower extremity 4 Navdeep IVORY RVT, CAROLA Mike. [address] [facility], [address], [facility] [place] [id number] , [place]. tel:[phone] Referring Provider: Debbi Garcia, [address] [facility] [address] [place], [address]. tel:[phone] [facility], [address] [place] [address] Dr Valenzuela 1000[address] 1000Michael [place], [id number], [place] tel:[phone] CVR - [facility] Encounter for follow-up examination after completed treatment for conditions other than malignant nePain in left leg Apr-0 4 Navdeep IVORY RVT, CAROLA Mike. [address] [facility], [address], [place], [place], [id number] , [place]. tel:[phone] Referring Provider: Debbi Marquez MD Jose, [address] [place] [address], [address]. tel:[phone] [facility], [address] [place] [address] Dr Valenzuela 1000[address] 1000Michael [place], [id number], [place] tel:[phone] CVR [facility] Varicose veins of left lower extremity with other complications Apr-0 4 Lucila Reese . [address] [address], [place], [place], [id number] , [place]. [phone] Referring Provider: Debbi Marquez MD Jose, [address] [place] [address], [address]. tel:[phone] [facility], [address] [place] [address] Dr Valenzuela 1000[address] 1000Michael [place], [id number], [place] tel:[phone] CVR - [facility] Encounter for follow-up examination after completed treatment for conditions other than malignant nePain in right leg Apr-0 4 Navdeep IVORY RVT, CAR[place] Mike. [address] [address], [place], [place], [id number] , [place]. [phone] Referring Provider: Debbi Garcia, [address] [place] [address], [address]. tel:[phone] [facility], [address] [place] [address] Dr Valenzuela 1000Suite 1000Michael [place], [id number], [place] tel:[phone] [facility] [facility] [place] Chronic venous hypertension (idiopathic) with inflammation of right lower extremity May-2 4 Navdeep IVORY RVT, CAROLA Mike. [address] [facility], [facility] [address], [place], [place], [id number] , [place]. tel:[phone] Referring Provider: Debbi Garcia, [address] [place] [address], [address]. tel:[phone] Office/Outpt E&M Established 25 Mins [facility], [address] [place] [address] Dr Valenzuela 1000Suite 1000Michael [place], [id number], [place] tel:[phone] [facility] [facility] [place] Chronic venous hypertension (idiopathic) with other complications of bilateral lower extremityPain in left lower legPain in right legPain in left legRestless legs syndromeVenous insufficiency (chronic) (peripheral)Medical Consultant mp and spasmLocalized edema May- 4 Navdeep IVORY RVT, CAROL[place] Mike. [address] [facility], [facility] [address], [place], [place], [id number] , [place]. [phone] Referring Provider: Debbi Garcia, [address] [place] [address], [address]. tel:[phone] [facility], [address] [place] [address] Dr Valenzuela 1000Suite 1000Michael [place], [id number], [place] tel:[phone] CVR - [facility] Chronic venous hypertension (idiopathic) with other complications of bilateral lower extremity May- 4 Navdeep IVORY RVT, RPVI Robert. [address] [facility], [address], [place], [place], [id number] , [place]. tel:[phone] Referring Provider: Debbi Garcia, [address] [place] [address] [place], [address]. tel:[phone] Office/Outpt E&M Established 15 Mins [facility], [address], [place], [id number], [place] tel:[phone] [facility] [facility] [place] Body mass index (BMI) 33.0-33.9, adultChronic venous htn w oth comp of bilateral low extrm 3 Jose IVORY FACS RVT RPVI Deangelo Nicole. [address] [facility], [address], [place], [address], [place]. tel:[phone] Referring Provider: Deangelo Garcia MD FACS RVT RPVI, [address] [facility] [address], [place], [address]. tel:[phone] Family History Family Member Type Diagnosis Age At Onset No Information Payers Payer name Insurance type Covered alliance party ID Authoriza tion(s) Medicare MARCO ANTONIO MEDINA [id number] [facility] [id number] Social History Type Description Quantity Date Captured Comments Alcohol Use Details Unknown Caffeine Use Details Unknown Tobacco Use Status No Information Smoking Status No Information Sex Female Chief Complaint And Reason For Visit No Information Reason For Referral Reason For Referral No Information Plan Of Treatment Date Type Action Status Goal Tobacco cessation counseling completed Goal Diet education completed Goal Diet education completed Goal Tobacco cessation counseling completed Goal Tobacco cessation counseling completed Goal Diet education completed Referral Ordered: Weight management: Referral to physician timeframe: 3 Months (related to Body mass index (BMI) 33.0-33.9, adult) ordered Referral Ordered: Weight management: Referral to physician timeframe: 3 Months (related to Body mass index (BMI) 33.0-33.9, adult) ordered History Of Present Illness Encounter Date Complaint History Of Prese nt Illness No Information Functional Status Date Functional Assessmen t No Information Instructions Date Instruction Additional Infor mation Patient education booklet given Related to Lymphedema, not elsewhere classified Lifestyle education Related to B javy mass index (BMI) 33.0-33.9, adult Giving Encouragement to exercise Related to Body mass index (BMI) 33.0-33.9, adult Diet education Related to Body mass index (BMI) 33.0-33.9, adult Lifestyle education Related to B javy mass index (BMI) 33.0-33.9, adult Diet education Related to Body mass index (BMI) 33.0-33.9, adult Pre and post instruc tions reviewed and provided Related to Chronic venous hypertension (idiopathic) with other complications of bilateral lower extremity Patient education booklet given Related to Chronic venous hypertension (idiopathic) with other complications of bilateral lower extremity Giving Encouragement to exercise Related to Body mass index (BMI) 33.0-33.9, adult Diet education Related to Body mass index [BMI] 33.0-33.9, adult Giving Encouragement to Exercise Related to Body mass index [BMI] 33.0-33.9, adult Assessments Type Assessment Date No Information Patient Care Teams Name Effective Dates (start - stop) Status Members No Information
--- NOTE | ~2025-02-18 | US_ITS ---
EXAMINATION: US LOWER EXTREMITY VENOUS (REFLUX EXAM), BILATERAL CLINICAL INFORMATION: I 83.11. Varices. COMPARISON: None. TECHNIQUE: Color flow triplex imaging and compression Doppler was performed to evaluate both the deep and the superficial systems bilaterally. To evaluate the superficial system, the examination was performed in the upright position. Color-flow Doppler ultrasound and compression ultrasound were utilized. In addition, maneuvers were utilized to demonstrate reflux. FINDINGS: 1. DEEP VENOUS ULTRASOUND OF THE RIGHT LOWER EXTREMITY: Common Femoral Vein: Compressible, normal respiratory variation and augmented flow. Femoral Vein: Compressible, normal color flow and augmentation. Popliteal Vein: Compressible, normal augmentation. Deep Reflux: There is 936 ms reflux in the femoral vein. There is no evidence of a Duenas's cyst. 2. SUPERFICIAL ULTRASOUND WITH DOPPLER OF RIGHT LOWER EXTREMITY: GREAT SAPHENOUS VEIN: Saphenofemoral Junction: 0.7 cm; Reflux: 0 ms Proximal Thigh: 0.5 cm; Reflux: 0 ms Mid Thigh: Not seen. Distal Thigh: Not seen. At Knee: Not seen. Proximal Calf: Not seen. Mid Calf: 0.1 cm; Reflux: 0 ms Distal Calf: 0.2 cm; Reflux: 2456 ms DUPLICATED MEDIAL GREAT SAPHENOUS VEIN: Diameter: None imaged Reflux: NA DUPLICATED LATERAL GREAT SAPHENOUS VEIN: Diameter: 0.2 cm. Reflux: NA SMALL SAPHENOUS VEIN: Saphenopopliteal Junction: 0.2 cm; Reflux: 0 ms Proximal: Not seen. Distal: 0.2 cm; Reflux: 0 ms VEIN OF GIACOMINI: Size: NA Reflux: NA PERFORATORS: Location: Small saphenous vein, proximal and mid segments. Great saphenous vein, mid calf. Size: 0.3 cm. Reflux: NA VARICOSITIES: Location: None imaged. Size: NA Reflux: NA 3. DEEP VENOUS ULTRASOUND OF THE LEFT LOWER EXTREMITY: Common Femoral Vein: Compressible, normal respiratory variation and augmented flow. Femoral Vein: Compressible, normal color flow and augmentation. Popliteal Vein: Compressible, normal augmentation. Deep Reflux: 1452 ms reflux in the popliteal vein. There is no evidence of a Duenas's cyst. 4. SUPERFICIAL ULTRASOUND WITH DOPPLER OF LEFT LOWER EXTREMITY: GREAT SAPHENOUS VEIN: Saphenofemoral Junction: 0.7 cm; Reflux: 0 ms Proximal Thigh: 0.3 cm; Reflux: 0 ms Mid Thigh: Not seen. Distal Thigh: Not seen. At Knee: Not seen. Proximal Calf: Not seen. Mid Calf: 0.1 cm; Reflux: 0 ms Distal Calf: 0.1 cm; Reflux: 0 ms DUPLICATED MEDIAL GREAT SAPHENOUS VEIN: Diameter: None imaged Reflux: NA DUPLICATED LATERAL GREAT SAPHENOUS VEIN: Diameter: 0.2 cm. Reflux: NA SMALL SAPHENOUS VEIN: Saphenopopliteal Junction: Not seen. Proximal: Not seen. Distal: 0.2 cm; Reflux: 0 ms VEIN OF GIACOMINI: Size: NA Reflux: NA PERFORATORS: Location: Small saphenous vein, mid segment. Great saphenous vein distal calf. Size: 0.3 and 0.2 cm, respectively. Reflux: NA VARICOSITIES: Location: None Imaged Size: NA Reflux: NA US/US venous duplex LE BI IMPRESSION: Right: Venous insufficiency, great saphenous vein at the ankle region. Reflux in the femoral vein. Perforators without reflux. Left: Reflux in the popliteal vein. Perforators without reflux. Electronically signed by: Leo Bryna MD 02/18/2025 11:08 AM SHAJI KELLEY
--- OUTSIDE RECORDS SUMMARY | 2025-02-18 08:05 | XMS_ITS | Clinical Summary ---
Author Organization [facility] Address [address] [place] [address] Care Team Providers Care Lead Tinner Name Role Phone Debbi Marquez MD Primary Care Provider Encounters Date Type Department Care Team Description 12/03/2024 12:30 PM EDT Procedure visit [facility] Audiology Department [address] [place] [id number] Kj Olsen, AUD, CCC-A Sensorineural hearing loss, [...] Drivers of Health Madelaine ual Screening 03/19/2024 Influenza Vaccine (#1) 2024 COVID-19 Vaccine (2024-2 6 season) 2024 RSV Vaccine (60+ years old a nd patients) (1 - 1-dose 75+ series) 10/24/2027 Hepatitis B Vaccines Aged Out No long er eligible based on patient's age to complete this topic Insurance MEDICARE [facility] Care Teams Lead Tinner Relationship Specialty Start Date End Date Debbi Marquez MD [address] [place] [address] PCP - General Internal Medicine 10/23/24
== END 2025-02-18 08:02 | disposition home or self-care (01) ==
LOC: HO.US 08:01
PROVIDERS: PCP Internal Medicine; Visit Provider Surgery Vascular Surgery
DX: I83.11 Varicose veins of right lower extremity with inflammation (principal)
CPT/HCPCS: 93970

== ENCOUNTER → 2025-02-18 08:05 | Outpatient (BNV) | payer MEDICARE, OTHER, SELFPAY | PROVIDERS: PCP Internal Medicine; Visit Provider Radiology Diagnostic Radiology | DX: I83.11 Varicose veins of right lower extremity with inflammation (principal); I82.432 Acute embolism and thrombosis of left popliteal vein; I82.431 Acute embolism and thrombosis of right popliteal vein | CPT/HCPCS: 93970 ==

== ENCOUNTER 2025-03-03 06:01 | Outpatient (REF) | payer MEDICARE, OTHER, SELFPAY ==
--- OUTSIDE RECORDS SUMMARY | 2023-08-10 07:23 | XMS_ITS | Continuity of Care Document ---
Author Organization [facility] Address [address] [place] [address] Dr Valenzuela [address] MD [place] [address] Phone Care Team Providers Care Assembler Corncob Pipes Name Role Phone Navdeep IVORY, YOLANDA, Rashid SRIVASTAVA Unavailable U navailable Allergies, Adverse Reactions, Alerts Substance Reaction Status Criticality BUPRENORPHINE HCL Active No Informa tion NSAIDS (Non-Steroidal Anti-Inflammatory Drug) Active No Information Medications Medication Instructions Dosage Dose Quantity Effective Dates (start - stop) Status Indication Fill Status Comments estradiol 2 mg tablet - Active hydrochlorot hiazide 12.5 mg tablet - Active hydrocodone 10 mg-acetamino phen 325 mg/15 mL (15 mL) oral solution - Active atorvastatin 20 mg tablet - Active Vitamin D3 50 mcg (2,000 unit) tablet - Active Colace 100 mg capsule - Active hyoscyamine 0.125 mg/mL oral drops - Active magnesium 250 mg (as magnesium oxide) tablet - Active Advance Directives Directive Yes / No Effective Date File Name No Information Encounters Encounter Description Practice Location Reason(s) For Visit Diagnoses Date Provider Encounter Disposition [facility], [address] [place] [address] Dr Valenzuela 1000Suite 1000Michael [place], [id number], [place] tel:[phone] [facility] No Information Navdeep IVORY, YOLANDA, CAROLA Mike. [address] [facility] [address], [place], [place], [id number] , [place]. tel:[phone] [facility], [address] [place] [address] Dr Valenzuela 1000Suite 1000Michael [place], [id number], [place] tel:[phone] CVR - [facility] Lymphedema, not elsewhere classifiedCra mp and spasmRestless legs syndrome 4 Navdeep IVORY RVT, CAR[place] Mike. [address] [place] [address] 302, Seth luna, [place] ANTON[place], [id number] , [place]. tel: [phone] [facility], [address] [place] [address] Dr Valenzuela 1000Suite 1000Michael [place], [id number], [place] tel:[phone] CVR - [facility] Chronic venous hypertension (idiopathic) with other complications of bilateral lower extremity 4 Navdeep IVORY RVT, CAROLA Mike. [address] [place] [address] Suite [facility], Seth luna, MAR[place] ANTONIO, [id number] , [place]. tel: [phone] [facility], [address] [place] [address] Dr Valenzuela 1000Suite 1000Michael [place], [id number], [place] tel:[phone] CVR - [facility] Encounter for follow-up examination after completed treatment for conditions other than malignant nePain in left leg 4 Navdeep IVORY RVT, RPVI Robert. [address] [place] [address], Seth luna, MAR[place] ANTONIO, [id number] , [place]. tel: [phone] [facility], [address] [place] [address] Dr Valenzuela 1000Suite 1000Michael [place], [id number], [place] tel:[phone] CVR - [facility] Varicose veins of left lower extremity with other complications 4 Lucila Reese . [address] [place] [address], [place] [address], Seth luna, MARCO ANTONIO, [id number] , [place]. tel: [phone] [facility], [address] [place] [address] Dr Valenzuela 1000Suite 1000Michael [place], [id number], [place] tel:[phone] CVR - [facility] Encounter for follow-up examination after completed treatment for conditions other than malignant nePain in right leg 4 Navdeep IVORY RVT, RPVI Robert. [address] [place] [address], [place] [address], [place], [place], [id number] , [place]. tel: [phone] [facility], [address] [place] [address] Dr Valenzuela 1000[facility] Michael Sanchez MD, [id number], [place] tel:[phone] CVR - [place] Chronic venous hypertension (idiopathic) with inflammation of right lower extremity May-2 4 Navdeep IVORY RVT, RPVI Robert. [address] [place] [address], [place], [place], [id number] , [place]. tel: [phone] [facility], [address] [place] [address] Dr Valenzuela 1000[facility] Michael Sanchez MD, [id number], [place] tel:[phone] CVR - [facility] Chronic venous hypertension (idiopathic) with other complications of bilateral lower extremityPain in left lower legPain in right legPain in left legRestless legs syndromeVenou s insufficiency (chronic) (peripheral)C ramp and spasmLocalize d edema May- 4 Navdeep IVORY RVT, RPVI Robert. [address] [place] [address], [place], [place], [id number] , [place]. tel: [phone] Roberto [facility], [address] [place] [address] Dr [address]enzuela [address] [place] [address] Michael Sanchez MD, [id number], [place] tel:[phone] CVR - [facility] Chronic venous hypertension (idiopathic) with other complications of bilateral lower extremity May- 4 Navdeep IVORY RVT, RPVI Robert. [address] [place] [address], [place], [place], [id number] , [place]. tel: [phone] [facility], [address] [place] [address] Dr Valenzuela 1000SuMichael toure MD, [id number], [place] tel:[phone] CV[place] - [place] Body mass index (BMI) 33.0-33.9, adultChronic venous htn w oth comp of bilateral low extrm Valentino- 3 Jose Nicole. [address] [place] [address], [place], [address], [place]. tel:[phone] Family History Family Member Type Diagnosis Age At Onset No Information Payers Payer name Insurance type Identifiers Authorization(s) Com ments Medicare MARCO ANTONIO MEDINA ID: [id number] Name: Coverage Status Eligibility Check on: [id number] hip to Subscriber: selfPayer Address: [address], [place], [id number], [place]Payer Phone: [phone] [facility] ID: [id number] Name: Coverage Status Eligibility Check on: [id number] hip to Subscriber: selfPayer Address: [address], [place], [id number], USPayer Phone: [phone] Social History Type Description Quantity Date Captured Comments Alcohol Use Details Unknown Caffeine Use Details Unknown Tobacco Use Status No Information Smoking Status No Information Sex Female Current Gender Female (finding) Unknown Chief Complaint And Reason For Visit No Information Plan Of Treatment Date Type Action Status Goal Tobacco cessation counseling completed Goal Diet education completed Goal Diet education completed Goal Tobacco cessation counseling completed Goal Diet education completed Goal Tobacco cessation counseling completed Referral Ordered: Weight management: Referral to physician timeframe: 3 Months (related to Body mass index (BMI) 33.0-33.9, adult) ordered Referral Ordered: Weight management: Referral to physician timeframe: 3 Months (related to Body mass index (BMI) 33.0-33.9, adult) ordered History Of Present Illness Encounter Date Complaint History Of Prese nt Illness No Information Functional Status Date Description Comments No Information Instructions Date Instruction Additional Infor [...]
--- OUTSIDE RECORDS SUMMARY | 2024-03-20 04:00 | XMS_ITS ---
Author Organization [facility] Address [address] [place] [address] Care Team Providers Care Barbering Teacher Name Role Phone Alma IVORY, Debbi Garcia Primary Care Provider Un available Ratna Chua Unavailable [phone] Encounters Encounter Location Date Provider Diagnosis [facility] [address] [place] [address] 03/20/2024 Ratna Chua Plan Of Treatment Next Appt Details Provider Name:Ratna boyd, 04/15/2025 08:30:00 AM, [address] [place], [address], Progress Notes * OLGA Leandra ADOB: [birth year] (74 yo F)Acc No.[id number]:03/20/2024 Progress Note Patient: Leandra HURTADO Provider: Kvng Chua DPM :1950 A ge:73 Y S ex:Female Date:03/20/2024 Address:[address] [place] [address] Pcp:Wilberto Cook Subjective: * Chief Complaints: * [...] 03/20/2024 Generated for Yissel patel/Luca/Han on: 1 05/04/2024 06:05 AM EST
--- OUTSIDE RECORDS SUMMARY | 2024-07-24 04:00 | XMS_ITS ---
Author Organization [facility] Address [address] [place] [address] Care Team Providers Care Director Hair Name Role Phone Alma IVORY, Debbi Garcia Primary Care Provider Un available Ratna Chua Unavailable [phone] Encounters Encounter Location Date Provider Diagnosis [facility] [address] [place] [address] 07/24/2024 Ratna Chua Plan Of Treatment Next Appt Details Provider Name:Ratna boyd, 04/15/2025 08:30:00 AM, [address] [place], [address], Progress Notes * OLGA Leandra ADOB: [birth year] (74 yo F)Acc No.[id number]:07/24/2024 Progress Note Patient: Leandra HURTADO Provider: Kvng Chua DPM :1950 A ge:73 Y S ex:Female Date:07/24/2024 Address:[address] [place] [address] Pcp:Wilberto Cook Subjective: * Chief Complaints: * [...] 07/24/2024 Generated for Yissel patel/Luca/Han on: 1 05/04/2024 06:05 AM EST
--- OUTSIDE RECORDS SUMMARY | 2024-09-08 10:45 | XMS_ITS ---
Author Organization [facility] Address [address] [place] [address] Care Team Providers Care Gag Writer Name Role Phone Alma IVORY, Debbi Garcia Primary Care Provider Un available Ratna Chua Unavailable [phone] Allergies Allergen (clinical drug ingredient) Drug/Non Drug [...] Active Encounters Encounter Location Date Provider Diagnosis [facility] [address] [address] 09/08/2024 Ratna Chua Plan Of Treatment Next Appt Details Provider Name:Ratna Jessica boyd, 04/15/2025 08:30:00 AM, [address] [place], [address], Progress Notes * Leandra ESPINOZA ADOB: [birth year] (74 yo F)Acc No.[id number]:09/08/2024 Progress Note Patient: Leandra HURTADO Provider: Kvng Chua DPM :1950 A ge:73 Y S ex:Female Date:09/08/2024 Address:[address] [place] [phone] Pcp:Wilberto Cook Subjective: * Chief Complaints: * [...] 09/08/2024 Generated for Yissel patel/Luca/Han on: 1 05/04/2024 06:04 AM EST
--- OUTSIDE RECORDS SUMMARY | 2024-12-15 02:30 | XMS_ITS ---
Author Organization [facility] Address [address] [place] [address] Care Team Providers Care Embossing Calender Operator Name Role Phone Alma IVORY, Debbi Primary Care Provider Rashid Narayan [phone] REASON FOR VISIT screening Encounters Encounter Location Date Provider Diagnosis [facility] [place] [address] [place], [place] [phone] 12/15/2024 Rashid Wilson Plan Of Treatment No Information Progress Notes * TURNER ESPINOZA ADOB: [birth year] (74 yo F)Acc No.[id number]:12/15/2024 COLON WITH MAC Patient: TURNER HURTADO Provider: Sergei Wilson MD :1950 A ge:74 Y S ex:Female Date:12/15/2024 Address:[address] [facility] Pcp:Debbi Marquez MD Subjective: * Chief Complaints: * S creening Billing Information: * Procedure Codes: * The named appointment provid er may or may not be the originator of this progress note, and it is not deemed complete until electronically signed by the appointment provider. Sign off status: Pending * Provider: Sergei Wilson MD Date: 0 12/15/2024 Generated for Aydeni ng/Faxing/eTransmitting on: 1 05/04/2024 06:05 AM EST
--- OUTSIDE RECORDS SUMMARY | 2025-03-03 06:05 | XMS_ITS | Clinical Summary ---
Author Organization [facility] ity Address [address] [place] [address] Care Team Providers Care Pants Maker Name Role Phone Unavailable Primary Care Provider [...] Depression Screening 03/19/2024 COVID-19 Vaccine (1 - 2024-2 [...]
--- OUTSIDE RECORDS SUMMARY | 2025-03-03 06:05 | XMS_ITS | Patient Health Record ---
Author Organization [facility] Address [address] [place] [address] Care Team Providers Care Corporate Strategy Intern Name Role Phone Alma IVORY, Debbi Primary Care Provider Rashid Narayan Unavailable [phone] Allergies Allergen (clinical drug ingredient) Drug/Non Drug Allergy documented on EMR Reaction Allergy Type Onset Date Status Non-steroidal anti-inflammatory agent (FN) NSAIDS (uncoded) GI upset Allergy Active buprenorphine Belbuca Unknown Drug Allergy Act radha Reason For Referral No Information Medications Medication SIG (Take, Route, Frequency, Duration) Notes Start Date End Date Status hydroCHLOROthiazide 12.5 MG Capsule 1 capsule Orally Once a day Active Vitamin D 1000 UNIT Tablet 1 tablet Oral ly Once a day Active Estradiol Active Elavil Active Benadryl Active traZODone HCl Active Lipitor Active Colace 100 MG Capsule 2 capsule as neede d Orally Once a day Active Dulcolax 10 MG Suppository 1 suppository as needed Rectal Once a day Active PriLOSEC 20 MG Capsule Delay ed Release 1 capsule Orally Once a day prn Active Semaglutide (2 MG/DOSE) 8 MG/3ML Solution Pen-injector 2.5 mg per week Subcutaneous weekly 09/11/2024 Active Social History Social History Additional Details Category Social Info Options Details Miscellaneous: Marital status: Single Occupation: retired RN Section Notes: Nonsmoker > 10 yrs ago; no s ig alcohol Nonsmoker > 10 yrs ago; no s ig alcohol Problems Problem Type SNOMED Code ICD Code Onset Dates Problem Status W/U Status Risk Notes Problem Colon cancer screening (071889503) Colon cancer screening (Z12.11) Active confirmed Problem Abdominal bloating (967256601) Abdominal bloating (R14.0) Active confirmed Problem Preprocedural examination (811538797453913) Preprocedural examination (Z01.818) Active confirmed Problem Irritable bowel syndrome characterized by constipation (532511829) Irritable bowel syndrome with constipation (K58.1) Active confirmed Problem Flatulence, eructation and gas pain (680253767) Abdominal gas pain (R14.1) Active confirmed Problem Long-term current use of drug therapy (013146572) High risk medications (not anticoagulants) long-term use (Z79.899) Active confirmed Vital Signs Blood pressure diastolic 77 mm Hg 09/11/2024 Height 62 in 09/11/2024 Blood pressure systolic 111 mm Hg 09/11/2024 Weight 140 lbs 09/11/2024 BMI 25.6 kg/m2 09/11/2024 Procedures Procedure Date Ordered Date Performed Result Body Sit e COLONOSCOPY 09/11/2024 N/A Encounters Encounter Location Date Provider Diagnosis [facility] Outpatient [address] [place] [id number] 12/15/2024 Rashid Wilson [facility] [address] [place] [phone] 09/11/2024 Rashid Wilson Colon cancer screeni ng Z12.11 ; Irritable bowel syndrome with constipation K58.1 ; Preprocedural examination Z01.818 and High risk medications (not anticoagulants) long-term use Z79.899 [facility] [address] 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) [address] [place] [address] [id number] LEANDRA ESPINOZA Self - patient is the insured Medical (General) History Medical History History ICD Code 06/07/2004 Colonoscopy w/small internal hemorrhoids Uses Hctz for edema due to the Lyrica IBS--uses Hyoscyamine prn wi th relief--constipation, but stable on her bowel regimen Hyperlipidemia Shingles Denies [place],DM,CVA,Lung disease,renal dise ase Back pain with disc disease- -use Vicodin QID-has a neuropain stimulator in place Negative colonoscopy in 10/2013 Lymphedema of lower extremities Hospitalization in 2021 and 2022 for small bowel obstructions due to presumed adhesions. These were treated with nasogastric tube decompression and did not require surgery. She has been followed by Dr. Escobar for this. Surgical History Surgery Date(Month/Year) Tonsillectomy 1971 Hysterectomy 2008 Cystocele repair 2008 Bunionectomy 2008 Laminectomy 2003 Cholecystectomy 1988 Shoulder surgery-right Right knee arthroscopy 2002 Appendectomy 09/01/2013 Lap band insertion--Dr. Tierney-lost 30 _# Marsupialization for Bartholin's glands cysts and infections Abdominoplasty Thumb bilaterally Right knee replacement
--- OUTSIDE RECORDS SUMMARY | 2025-03-03 06:05 | XMS_ITS | Clinical Summary ---
Author Organization [facility] Address [address] [place] [address] Care Team Providers Care Planer Stone Name Role Phone Debbi Marquez MD Primary Care Provider Encounters Date Type Department Care Team Description 12/03/2024 12:30 PM EDT Procedure visit [facility] Audiology Department [address] [facility] [address] Kj Olsen, AUD, CCC-A Sensorineural hearing loss, [...] to complete this topic Insurance MEDICARE [facility] Care Teams Planer Stone Relationship Specialty Start Date End Date Debbi Marquez MD [address] [place] [address] PCP - General Internal Medicine 10/23/24
--- OUTSIDE RECORDS SUMMARY | 2025-03-03 06:05 | XMS_ITS | Patient Health Record ---
Author Organization [facility] Address [address] [facility] [place] [address] Care Team Providers Care Instrumentation Tech Name Role Phone Alma IVORY, Debbi Garcia Primary Care Provider Un available Ratna Chua Unavailable [phone] Allergies Allergen (clinical drug ingredient) Drug/Non Drug [...] hrs PRN Active Lyrica 75 MG Orally Not-Logn ing Elavil 75mg Active Walking Boot/Pneumatic As [...] primary osteoarthritis of the ankle and/or foot (908707597) Primary osteoarthritis , left ankle and foot (M19.072) Active confirmed Problem Acquired hallux valgus (12700448) Hallux valgus (acquired), left foot (M20.12) Active confirmed Problem Acquired hammer toe of left foot (2502311194324920) Other hammer toe(s) (acquired), left foot (M20.42) Active confirmed Problem Lymphedema (23080768) Lymphedema (I89.0) Active confirmed Problem Left metatarsus adductus (disorder) (91443145345828947 ) 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 Vital Signs Blood pressure diastolic 60 mm Hg 12/31/2024 Height 5ft2in in 12/31/2024 Blood pressure systolic 126 mm Hg 12/31/2024 Weight 150 lbs 12/31/2024 BMI 27.43 kg/m2 12/31/2024 Procedures Procedure Date Ordered Date Performed Result Body Sit e , D6786-PVZKQ/INJECT, JOINT/BURSA 03/20/2024 N/A , J6772-KLMIL/INJECT, JOINT/BURSA 09/08/2024 N/A 81950, L6759-VPWEH/INJECT, JOINT/BURSA 12/31/2024 N/A Encounters Encounter Location Date Provider Diagnosis [address] [address] 03/20/2024 Ratna Chua Sinus tarsitis of left foot M25.[address] [address] 09/08/2024 Ratna Chua Sinus tarsitis of left foot M25.[address] [address] 12/31/2024 Ratna Chua Sinus tarsitis of left foot M25.572 and Edema, lower extremity R60.[address] [address] 07/22/2024 Ratna Chua Assessments Encounter Date Diagnosis [...] X ray : Foot, left 3V 06/01/2021 51871, J0702- INJECT TENDON ORIGIN/INSER T 12/27/2022 14626, J0702- INJECT or DRAIN, JOINT/BUR SA 03/08/2023, X7669-GIKRN/INJECT, JOINT/BURSA 0 03/20/2024, D7312-SKSEG/INJECT, JOINT/BURSA 0 09/08/2024, G0752-ELSNO/INJECT, JOINT/BURSA 1 , X2790-BSTHI/INJECT, JOINT/BURSA 0 10/16/2018 X ray : Ankle, right 3V 09/05/2011 Next Appt Details Provider Name:Ratna boyd, 04/15/2025 08:30:00 AM, [address] [facility], [place], [address], Insurance Providers Payer Name Payer Address Payer Phone Subscriber Number Group Number Insured Name Patient Relationship to Insured Coverage Start Date Coverage End Date Medicare National Govt Svcs Inc [address] [place] [address] [id number] Johnlisa Leandra Self - patient is the insured [employer] ([employer]) [address] [place] [address] [id number] Leonor Leandra Self - patient is [...]
[2025-03-03 11:46] LABS: Alanine Aminotransferase 25 U/L (0-31); Anion Gap 14 (12-20); Aspartate Amino Transferase 32 U/L (5-31); Blood Urea Nitrogen 19 mg/dL (9-16); Calcium 9.5 mg/dL (8.4-10.2); Carbon Dioxide 28 mmol/L (22-29); Chloride 103 mmol/L (96-108); Cholesterol 204 mg/dL (<200); Estimated Glomerular Filt Rate > 60; HDL Cholesterol 77 mg/dL (>40); Potassium 3.6 mmol/L (3.3-5.1); Sodium 141 mmol/L (135-145); Triglycerides 54 mg/dL (<150)
== END 2025-03-03 06:02 | disposition home or self-care (01) ==
LOC: HO.HMGCLDS 06:01
PROVIDERS: PCP Internal Medicine; Visit Provider Internal Medicine
DX: I10 Essential (primary) hypertension (principal); I73.9 Peripheral vascular disease, unspecified; E78.5 Hyperlipidemia, unspecified; E66.9 Obesity, unspecified
CPT/HCPCS: 36415; 80048; 80061; 82306; 84450; 84460

== ENCOUNTER 2025-03-04 08:59 | Outpatient (AMB) | payer MEDICARE, OTHER, SELFPAY ==
--- OUTSIDE RECORDS SUMMARY | 2024-03-20 04:00 | XMS_ITS ---
Author Organization [facility] Address [address] [place] [address] Care Team Providers Care Oven Loader Name Role Phone Alma IVORY, Debbi Garcia Primary Care Provider Un available Ratna Chua Unavailable [phone] Encounters Encounter Location Date Provider Diagnosis [facility] [address] [place] [address] 03/20/2024 Ratna Chua Plan Of Treatment Next Appt Details Provider Name:Ratna boyd, 04/15/2025 08:30:00 AM, [address] [place], [address], Progress Notes * OLGA Leandra ADOB: [birth year] (74 yo F)Acc No.[id number]:03/20/2024 Progress Note Patient: Leandra HURTADO Provider: Kvng Chua DPM :1950 A ge:73 Y S ex:Female Date:03/20/2024 Address:[address] [place] [address] Pcp:Wilberto Cook Subjective: * Chief Complaints: * [...] 03/20/2024 Generated for Yissel patel/Luca/Han on: 1 05/05/2024 09:44 AM EST
--- OUTSIDE RECORDS SUMMARY | 2024-07-24 04:00 | XMS_ITS ---
Author Organization [facility] Address [address] [place] [address] Care Team Providers Care Shell Coremaker Name Role Phone Alma IVORY, Debbi Garcia Primary Care Provider Un available Ratna Chua Unavailable [phone] Encounters Encounter Location Date Provider Diagnosis [facility] [address] [place] [address] 07/24/2024 Ratna Chua Plan Of Treatment Next Appt Details Provider Name:Ratna boyd, 04/15/2025 08:30:00 AM, [address] [place], [address], Progress Notes * OLGA Leandra ADOB: [birth year] (74 yo F)Acc No.[id number]:07/24/2024 Progress Note Patient: Leandra HURTADO Provider: Kvng Chua DPM :1950 A ge:73 Y S ex:Female Date:07/24/2024 Address:[address] [place] [address] Pcp:Wilberto Cook Subjective: * Chief Complaints: * [...] 07/24/2024 Generated for Yissel patel/Luca/Han on: 1 05/05/2024 09:43 AM EST
--- OUTSIDE RECORDS SUMMARY | 2024-09-08 10:45 | XMS_ITS ---
Author [facility] Address [address] [place] [address] Care Team Providers Care Icing And Glaze Maker Name Role Phone Alma IVORY, Debbi Garcia Primary Care Provider Un available Ratna Chua Unavailable [phone] Allergies Allergen (clinical drug ingredient) Drug/Non Drug [...] Active Encounters Encounter Location Date Provider Diagnosis [facility] [address] [address] 09/08/2024 Ratna Chua Plan Of Treatment Next Appt Details Provider Name:Ratna Jessica boyd, 04/15/2025 08:30:00 AM, [address] [place], [address], Progress Notes * Leandra ESPINOZA ADOB: [birth year] (74 yo F)Acc No.[id number]:09/08/2024 Progress Note Patient: Leandra HURTADO Provider: Kvng Chua DPM :1950 A ge:73 Y S ex:Female Date:09/08/2024 Address:[address] [place], [place] [id number] Pcp:Wilberto Cook Subjective: * Chief Complaints: * [...] 0 09/08/2024 Generated for Yissel patel/Luca/Han on: 1 05/05/2024 09:43 AM EST
--- OUTSIDE RECORDS SUMMARY | 2024-12-15 02:30 | XMS_ITS ---
Author Organization [facility] Address [address] [place] [address] Care Team Providers Care Geographic Information Systems Director Name Role Phone Alma IVORY, Debbi Primary Care Provider Rashid Narayan [phone] REASON FOR VISIT screening Encounters Encounter Location Date Provider Diagnosis [facility] Outpatient [address] [place], [place] [id number] 12/15/2024 Rashid Wilson Plan Of Treatment No Information Progress Notes * TURNER ESPINOZA ADOB: [birth year] (74 yo F)Acc No.[id number]:12/15/2024 COLON WITH MAC Patient: TURNER HURTADO Provider: Sergei Wilson MD :1950 A ge:74 Y S ex:Female Date:12/15/2024 Address:[address] [facility] Pcp:Debbi Marquez MD Subjective: * Chief Complaints: * S creening Billing Information: * Procedure Codes: * The named appointment provid er may or may not be the originator of this progress note, and it is not deemed complete until electronically signed by the appointment provider. Sign off status: Pending * Provider: Sergei Wilson MD Date: 0 12/15/2024 Generated for Aydeni ng/Faxing/eTransmitting on: 1 05/05/2024 09:43 AM EST
--- NOTE | 2025-03-04 09:06 | A.OFFVIS_ITS ---
Vital Signs 03/04/25 09:10 Height 5 ft 2 in Weight 137 lb BMI 25.1 BP 145/71 H Blood Pressure Location Lt brachial Position Sitting Respiration 16 Pulse 100 Pulse Source Pulse Oximeter Pulse Oximetry (%) 99 Oxygen Delivery Method Room Air Intake Visit Reasons: PILL COUNT Intake Note: Patient here for a pill count of Oxycodone per directions patient should have 36 pills patient presented 40 pills. last took yesterday 03/03/25 at 2pm Accompanied by: Self / Same As Patient Allergies buprenorphine (Belbuca) Allergy (Unknown, Verified 03/04/25 09:12) stomach upset NSAIDS (Non-Steroidal Anti-Inflamma Allergy (Unknown, Verified 03/04/25 09:12) Stomach Upset HPI Comments Details: Leandra presents back to the office today for follow up chronic pain and chronic opioid therapy management. Her pill count is correct. She is prescribed oxycodone 5 mg twice a day p.r.n. pain. She supposed to present today with 36 pills in her possession. She presented with 40 pills in her possession. This demonstrates responsible attitude to moreno the opioid medications. she is suffering from opioid induced constipation however Movantik prescribes the patient gave her partial small- bowel obstruction. She has successfully using Colace 2 help her to have at least 1 BM in 2 days . Irritative nature of the Colace and Dulcolax were explained to the patient. Her medication will be prescribed due on 03/22/2024. The patient reported that she is going to vacation in [place] from 03/26 to . She will be seen in the office by nurse practitioner when she will come back on 04/13/2025. We discussed in the past sprint PNS, in the distant past we did medial branch blocks for the patient which did not result in significant pain improvement. Her pain is mostly axial and is being aggravated by flexing backwards. On the MRI dictated as below widespread spondylosis is demonstrated in the patient's lumbar spine. I offered the patient to perform again diagnostic medial branch blocks in the order to prepare her for sprint PNS. I also gave her sprint PNS brochure to read. Denies side effects including somnolence,itching, dyspnea, rash, dizziness, urinary retention or weakness. She has PHQ score is equal to 1, Her opioid addiction risk score is equal to 2 Total score is equal to 3 she is low risk for opioid addiction. [facility] Medical History Hx of right bundle branch block Patulous eustachian tube Small bowel obstruction Abdominal pain Osteoarthritis History of osteopenia Obesity (BMI 30.0-34.9) Prolapse of anterior vaginal wall Essential hypertension Dyslipidemia Irritable bowel syndrome Chronic pain syndrome Bilateral primary osteoarthritis of knee Spondylosis without myelopathy or radiculopathy, lumbar region Surgical History History of total right knee replacement Hx of colonoscopy Hx of laparoscopic gastric banding (~2004) History of tonsillectomy History of hysterectomy History of carpal tunnel surgery History of cholecystectomy History of laparoscopic appendectomy History of lumbar laminectomy History of reduction mammoplasty H/O abdominoplasty Hx of bariatric surgery Family History Mother Diabetes mellitus Essential hypertension Cardiovascular disease Daughter Wernicke-Korsakoff syndrome (alcoholic) Social History Household Members: None Household Members Other:: 0 Housing: House Are you a primary direct care supervisor to a significant other at home: No Do you presently have visiting nurse or other home services: No 75 years or older and lives alone: No Alcohol intake: never Patient Tobacco Use Status: Former Tobacco user Tobacco use type: Cigarette e-Cigarette/Vaping Use: Never Used Advance Directives Date on File: 12/22/21 service: No Current occupational status: retired Cognitive needs: No Hearing needs: No Vision needs: No Review of Systems Const All systems reviewed & are unremarkable except as noted in HPI and below Physical Exam Vital Signs: Last Vital Signs Pulse 100 03/04/25 09:10 Resp 16 03/04/25 09:10 BP 145/71 H 03/04/25 09:10 Pulse Ox 99 03/04/25 09:10 Oxygen Delivery Method Room Air 03/04/25 09:10 BMI result Body Mass Index 25.1 Const General: cooperative, comfortable and well developed Eyes General: appearance normal, both eyes and all related structures EOM: EOMs intact bilaterally Resp Effort & Inspection: normal respiratory effort, able to speak in complete sentences, normal respiratory pattern, no audible wheezes and no cough Cardio Jugular venous distension: no JVD Back/Spine/Pelvis Other: She is able to walk on her tip toes as well as on her heels. She denies radiation of the pain from lower back to the extremities. She denies Valsalva maneuver positive for pain increase. She is able to flex forward and flex backward admits severe pain with flexing backward the majority of the pain is located in the projection of sacral bone on palpation. There is no radiation on palpation. She denies bowel and bladder dysfunction. Bending forward and bending backwards are not very comfortable but bending backwards aggravates her pain more. Nigel test is negative for sacroiliac joint pathology. Palpation of the sacroiliac joint projection to the skin is also negative.. Assessment & Plan Assessment & Plan (1) Peripheral neuropathy: Code(s): G62.9 - Polyneuropathy, unspecified Category: Medical (2) Spondylosis without myelopathy or radiculopathy, lumbar region: Code(s): M47.816 - Spondylosis without myelopathy or radiculopathy, lumbar region Category: Medical (3) Bilateral primary osteoarthritis of knee: Code(s): M17.0 - Bilateral primary osteoarthritis of knee Category: Medical (4) Chronic pain syndrome: Code(s): G89.4 - Chronic pain syndrome Category: Medical (5) Trochanteric bursitis, left hip: Code(s): M70.62 - Trochanteric bursitis, left hip Category: Medical Plan Masspat was reviewed and without concerns. Pill count is correct as above. Next time she will be seen in the office after she will returned from vacation in [facility] on 04/13/2025. It could be that she developed small bowel obstruction secondary to Movantik. I told her not to take it for now. In the past we discuss sprint PNS to treat her lower back pain, her MBB was indicative of the facet generated pain. However patient is not eager To consider this procedure. Next time I will offer patient physical therapy. Medications: Refilled oxycodone Partial Fill upon patient request. 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
[2025-03-04 09:10] VITALS: BP 145/71; PULSE 100; RESP 16; O2SAT 99; BMI 25.1
--- OUTSIDE RECORDS SUMMARY | 2025-03-04 09:43 | XMS_ITS | Clinical Summary ---
Author Organization [facility] Address [address] [place] [address] Care Team Providers Care Geological Engineering Teacher Name Role Phone Debbi Marquez MD Primary Care Provider Encounters Date Type Department Care Team Description 12/03/2024 12:30 PM EDT Procedure visit [facility] Audiology Department [address] [place] [address] Kj Olsen, AUD, CCC-A Sensorineural hearing loss, [...] age to complete this topic Insurance MEDICARE [facility] Care Teams Geological Engineering Teacher Relationship Specialty Start Date End Date Debbi Marquez MD [address] [place] [address] PCP - General Internal Medicine 10/23/24
--- OUTSIDE RECORDS SUMMARY | 2025-03-04 09:43 | XMS_ITS | Clinical Summary ---
Author Organization [facility] ity Address [address] [place] [address] Care Team Providers Care Compliance Aide Name Role Phone Unavailable Primary Care Provider [...]
--- OUTSIDE RECORDS SUMMARY | 2025-03-04 09:43 | XMS_ITS | Patient Health Record ---
Author Organization [facility] Address [address] [place] [place] [address] Care Team Providers Care Admissions Manager Rn Name Role Phone Alma IVORY, Debbi Garcia Primary Care Provider Un available Ratna Chua Unavailable [phone] Allergies Allergen (clinical drug ingredient) Drug/Non Drug [...] primary osteoarthritis of the ankle and/or foot (481478769) Primary osteoarthritis , left ankle and foot (M19.072) Active confirmed Problem Acquired hallux valgus (34544850) Hallux valgus (acquired), left foot (M20.12) Active confirmed Problem Acquired hammer toe of left foot (4325545106908816) Other hammer toe(s) (acquired), left foot (M20.42) Active confirmed Problem Lymphedema (50330070) Lymphedema (I89.0) Active confirmed Problem Left metatarsus adductus (disorder) (75150249245073629 ) 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 Vital Signs Blood pressure diastolic 60 mm Hg 12/31/2024 Height 5ft2in in 12/31/2024 Blood pressure systolic 126 mm Hg 12/31/2024 Weight 150 lbs 12/31/2024 BMI 27.43 kg/m2 12/31/2024 Procedures Procedure Date Ordered Date Performed Result Body Sit e , S0670-TKMMW/INJECT, JOINT/BURSA 03/20/2024 N/A , Y8120-VQIWB/INJECT, JOINT/BURSA 09/08/2024 N/A 13298, K6139-XBUSR/INJECT, JOINT/BURSA 12/31/2024 N/A Encounters Encounter Location Date Provider Diagnosis [address] [address] 03/20/2024 Ratna Chua Sinus tarsitis of left foot M25.[address] [address] 09/08/2024 Ratna Chua Sinus tarsitis of left foot M25.[address] [address] 12/31/2024 Ratna Chua Sinus tarsitis of left foot M25.572 and Edema, lower extremity R60.[address] [address] 07/22/2024 Ratna Chua Assessments Encounter Date Diagnosis [...] X ray : Foot, left 3V 06/01/2021 32863, J0702- INJECT TENDON ORIGIN/INSER T 12/27/2022 49402, J0702- INJECT or DRAIN, JOINT/BUR SA 03/08/2023, L4281-ZIQLN/INJECT, JOINT/BURSA 0 03/20/2024, S4646-OBNGB/INJECT, JOINT/BURSA 0 09/08/2024, J3475-DOKZE/INJECT, JOINT/BURSA 1 , L2499-BENWM/INJECT, JOINT/BURSA 0 10/16/2018 X ray : Ankle, right 3V 09/05/2011 Next Appt Details Provider Name:Ratna boyd, 04/15/2025 08:30:00 AM, [address] [facility], [place], [address], Insurance Providers Payer Name Payer Address Payer Phone Subscriber Number Group Number Insured Name Patient Relationship to Insured Coverage Start Date Coverage End Date Medicare National Govt Svcs Inc [address] [facility] [place] [address] [id number] Johnlisa Leandra Self - patient is the insured [employer] ([employer]) [address] [place] [address] [id number] Leonor Leandra Self - patient is [...] abdominoplasty 11/11 Pain Stimulator removed- [address] [facility] 08/28/2018
--- OUTSIDE RECORDS SUMMARY | 2025-03-04 09:43 | XMS_ITS | Patient Health Record ---
Author Organization [facility] Address [address] [place] [address] Care Team Providers Care Micro Computer Specialist Name Role Phone Alma IVORY, Debbi Primary Care Provider Rashid Narayan Unavailable [phone] Allergies Allergen (clinical drug ingredient) Drug/Non Drug [...] Status Risk Notes Problem Colon cancer screening (322810742) Colon cancer screening (Z12.11) Active confirmed Problem Abdominal bloating (676632025) Abdominal bloating (R14.0) Active confirmed Problem Preprocedural examination (160979910837733) Preprocedural examination (Z01.818) Active confirmed Problem Irritable bowel syndrome characterized by constipation (791448300) Irritable bowel syndrome with constipation (K58.1) Active confirmed Problem Flatulence, eructation and gas pain (258463516) Abdominal gas pain (R14.1) Active confirmed Problem Long-term current use of drug therapy (900774461) High risk medications (not anticoagulants) long-term use (Z79.899) Active confirmed Vital Signs Blood pressure diastolic 77 mm Hg 09/11/2024 Height 62 in 09/11/2024 Blood pressure systolic 111 mm Hg 09/11/2024 Weight 140 lbs 09/11/2024 BMI 25.6 kg/m2 09/11/2024 Procedures Procedure Date Ordered Date Performed Result Body Sit e COLONOSCOPY 09/11/2024 N/A Encounters Encounter Location Date Provider Diagnosis [facility] Outpatient [address] [place] [id number] 12/15/2024 Rashid Wilson [facility] [address] [place] [address] 09/11/2024 Rashid Wilson Colon cancer screeni ng Z12.11 ; Irritable bowel syndrome with constipation K58.1 ; Preprocedural examination Z01.818 and High risk medications (not anticoagulants) long-term use Z79.899 [facility] [address] [facility] [address] [place] [address] 10/04/2024 Rashid Wilson Assessments Encounter Date Diagnosis [...] Date MEDICARE OF [place] [address] [place] [address] [phone] [id number] LEANDRA ESPINOZA Self - patient is the insured 8 [employer] ([employer]) [address] [place] [address] [phone] [id number] LEANDRA ESPINOZA Self - patient is [...]
== END 2025-03-04 09:28 | disposition home or self-care (01) ==
LOC: HO.PMC 09:00
PROVIDERS: PCP Internal Medicine; Visit Provider Anesthesiology
DX: G62.9 Polyneuropathy, unspecified (principal); M47.816 Spondylosis without myelopathy or radiculopathy, lumbar region; M17.0 Bilateral primary osteoarthritis of knee; G89.4 Chronic pain syndrome; M70.62 Trochanteric bursitis, left hip
CPT/HCPCS: 99213

== ENCOUNTER → 2025-03-04 08:59 | Outpatient (BNVA) | payer MEDICARE, OTHER, SELFPAY | PROVIDERS: PCP Internal Medicine; Visit Provider Anesthesiology | DX: M47.816 Spondylosis without myelopathy or radiculopathy, lumbar region (principal); M17.0 Bilateral primary osteoarthritis of knee; G89.29 Other chronic pain; M70.62 Trochanteric bursitis, left hip; G62.9 Polyneuropathy, unspecified; M96.1 Postlaminectomy syndrome, not elsewhere classified; K59.03 Drug induced constipation; T40.2X5A Adverse effect of other opioids, initial encounter; Z51.81 Encounter for therapeutic drug level monitoring; Z79.891 Long term (current) use of opiate analgesic | CPT/HCPCS: 99212 ==

== ENCOUNTER 2025-03-07 20:52 | Inpatient (IN) | payer MEDICARE, OTHER, SELFPAY ==
--- OUTSIDE RECORDS SUMMARY | 2024-03-20 04:00 | XMS_ITS ---
Author Organization [facility] Address [address] [place] [address] Care Team Providers Care Crude Oil Driver Name Role Phone Alma IVORY, Debbi Garcia Primary Care Provider Un available Ratna Chua Unavailable [phone] Encounters Encounter Location Date Provider Diagnosis [facility] [address] [place] [address] 03/20/2024 Ratna Chua Plan Of Treatment Next Appt Details Provider Name:Ratna boyd, 04/15/2025 08:30:00 AM, [address] [place], [address], Progress Notes * OLGA Leandra ADOB: [birth year] (74 yo F)Acc No.[id number]:03/20/2024 Progress Note Patient: Leandra HURTADO Provider: Kvng Chua DPM :1950 A ge:73 Y S ex:Female Date:03/20/2024 Address:[address] [place] [address] Pcp:Wilberto Cook Subjective: * Chief Complaints: * [...] 03/20/2024 Generated for Yissel patel/Luca/Han on: 1 05/08/2024 09:32 PM EST
--- OUTSIDE RECORDS SUMMARY | 2024-07-24 04:00 | XMS_ITS ---
Author Organization [facility] Address [address] [place] [address] Care Team Providers Care Commercial Finance Analyst Name Role Phone Alma IVORY, Debbi Garcia Primary Care Provider Un available Ratna Chua Unavailable [phone] Encounters Encounter Location Date Provider Diagnosis [facility] [address] [place] [address] 07/24/2024 Ratna Chua Plan Of Treatment Next Appt Details Provider Name:Ratna boyd, 04/15/2025 08:30:00 AM, [address] [place], [address], Progress Notes * OLGA Leandra ADOB: [birth year] (74 yo F)Acc No.[id number]:07/24/2024 Progress Note Patient: Leandra HURTADO Provider: Kvng Chua DPM :1950 A ge:73 Y S ex:Female Date:07/24/2024 Address:[address] [place] [address] Pcp:Wilberto Cook Subjective: * Chief Complaints: * * Medical History: Objective: * Vitals: Assessment: Plan: * Treatment: * Images: * The named appointment provid er may or may not be the originator of this progress note, and it is not deemed complete until electronically signed by the appointment provider. Sign off status: Pending * Provider: Kvng Chua, CLARA Date: 0 07/24/2024 Generated for Yissel patel/Luca/Han on: 1 05/08/2024 09:32 PM EST
--- OUTSIDE RECORDS SUMMARY | 2024-09-08 10:45 | XMS_ITS ---
Author Organization [facility] Address [address] [place] [address] Care Team Providers Care Ecology Professor Name Role Phone Alma IVORY, Debbi Garcia Primary Care Provider Un available Ratna Chua Unavailable [phone] Allergies Allergen (clinical drug ingredient) Drug/Non Drug [...] Active Encounters Encounter Location Date Provider Diagnosis [facility] [address] [address] 09/08/2024 Ratna Chua Plan Of Treatment Next Appt Details Provider Name:Ratna Jessica boyd, 04/15/2025 08:30:00 AM, [address] [place], [address], Progress Notes * Leandra ESPINOZA ADOB: [birth year] (74 yo F)Acc No.[id number]:09/08/2024 Progress Note Patient: Leandra HURTADO Provider: Kvng Chua DPM :1950 A ge:73 Y S ex:Female Date:09/08/2024 Address:[address] [place], [place] [id number] Pcp:Wilberto Cook Subjective: * Chief Complaints: * [...] 09/08/2024 Generated for Yissel patel/Luca/Han on: 1 05/08/2024 09:31 PM EST
--- OUTSIDE RECORDS SUMMARY | 2024-12-15 02:30 | XMS_ITS ---
Author Organization [facility] Address [address] [place] [address] Care Team Providers Care Librarian School Name Role Phone Alma IVORY, Debbi Primary Care Provider Rashid Narayan [phone] REASON FOR VISIT screening Encounters Encounter Location Date Provider Diagnosis [facility] [place] [address] [place], [place] [phone] 12/15/2024 Rashid Wilson Plan Of Treatment No Information Progress Notes * TURNER ESPINOZA ADOB: [birth year] (74 yo F)Acc No.[id number]:12/15/2024 COLON WITH MAC Patient: TURNER HURTADO Provider: Sergei Wilson MD :1950 A ge:74 Y S ex:Female Date:12/15/2024 Address:[address] [facility] Pcp:Debbi Marquez MD Subjective: * Chief Complaints: * S creening Billing Information: * Procedure Codes: * The named appointment provid er may or may not be the originator of this progress note, and it is not deemed complete until electronically signed by the appointment provider. Sign off status: Pending * Provider: Sergei Wilson MD Date: 0 12/15/2024 Generated for Printi ng/Faxing/eTransmitting on: 1 05/08/2024 09:32 PM EST
--- NOTE | ~2025-03-07 | XR_ITS ---
CLINICAL HISTORY: ffup for SBO 1 view abdomen Comparison: None provided Findings: No pneumoperitoneum or pneumatosis. No discrete dilated small bowel loops are noted. Gas is seen in the colon. No abnormal calcifications. No acute fractures. NG tube is adequately positioned. Gastric band catheter noted. The urinary bladder is distended with contrast. IMPRESSION: The bowel gas pattern is normal This document has been electronically signed by: Mehdi Palomino MD on 03/08/2025 10:16:50
--- NOTE | ~2025-03-07 | CT_ITS ---
CLINICAL HISTORY: abdominal pain CT abdomen and pelvis with contrast Comparison: CT/REG/SR - CT ABDOMEN PELVIS W IV CON - 11/18/24 06:20 EDT Findings: There is mild bibasilar atelectasis. The patient is status post cholecystectomy. There are a few tiny hepatic cysts. The pancreas, spleen, adrenal glands, and kidneys are unremarkable. There is a gastric lap band in appropriate position. There are dilated small bowel loops in the mid and lower abdomen with an apparent transition point to decompressed bowel in the right lower quadrant consistent with small-bowel obstruction. There is trace free fluid. There is no free air. The patient is status post appendectomy. The patient is status post hysterectomy. The bladder is unremarkable. There are no enlarged lymph nodes. The aorta is normal in diameter. There are degenerative changes in the lower lumbar spine. There is no fracture or suspicious lytic or sclerotic lesion. IMPRESSION: 1. Findings consistent with small-bowel obstruction with transition point in the right lower quadrant. 2. Chronic findings as above. This document has been electronically signed by: Leroy Taylor MD on 03/08/2025 00:48:44
--- NOTE | ~2025-03-07 | XR_ITS ---
CLINICAL HISTORY: tube placement 1 view chest x-ray. Comparison: None provided Findings: NG tube is in the stomach. There is a gastric lap band. The lungs appear clear. There is no consolidation, effusion, or pneumothorax. Cardiomediastinal silhouette is within normal limits. IMPRESSION: NG tube is in the stomach. This document has been electronically signed by: Leroy Taylor MD on 03/08/2025 04:25:44
[2025-03-07 20:59] VITALS: BP 143/84; BP 146/80; PULSE 90; PULSE 97; RESP 16; TEMP -12.5; TEMP 9.5; O2SAT 96; O2SAT 98; BMI 25.1
[2025-03-07 21:14] LABS: Hematocrit 42.1 % (37.0-47.0); Hemoglobin 14.4 g/dl (12.0-16.0); Imm Gran Abs Auto 0.04 X10*3/uL (0.00-0.03); Imm Gran Pct Auto 0.3 % (0.0-0.4); Lymphocytes Absolute Auto 4.5 X10*3/uL (1.2-4.9); MANUAL DIFF FLAG NO; Mean Corpuscular HGB Conc 34.2 g/dl (31.0-35.0); Mean Corpuscular Hemoglobin 30.6 pg (27.0-33.0); Mean Corpuscular Volume 89.4 fL (80.0-98.0); NRBC Abs Auto 0.000 X10*3/uL (0.0-0.012); NRBC Pct Auto 0.0 /100WBC (0.0-0.2); Platelet Count 427 X10*3/uL (160-400); Red Blood Count 4.71 X10*6/uL (4.20-5.50); White Blood Count 13.3 X10*3/uL (4.8-10.8)
[2025-03-07 21:28] LABS: Alanine Aminotransferase 24 U/L (0-31); Albumin Level 4.6 g/dL (3.5-5.0); Alkaline Phosphatase 64 U/L (39-117); Anion Gap 17 (12-20); Aspartate Amino Transferase 35 U/L (5-31); Blood Urea Nitrogen 14 mg/dL (9-16); Calcium 10.5 mg/dL (8.4-10.2); Carbon Dioxide 29 mmol/L (22-29); Chloride 99 mmol/L (96-108); Creatinine Clr Calc Pharmacy 63.8; Estimated Glomerular Filt Rate > 60; Potassium 3.3 mmol/L (3.3-5.1); Sodium 142 mmol/L (135-145); Total Protein 7.4 g/dL (6.5-8.0)
--- OUTSIDE RECORDS SUMMARY | 2025-03-07 21:32 | XMS_ITS | Patient Health Record ---
Author Organization [facility] Address [address] [place] [address] Care Team Providers Care Informatics Coordinator Name Role Phone Alma IVORY, Debbi Garcia Primary Care Provider Un available Ratna Chua Unavailable [phone] Allergies Allergen (clinical drug ingredient) Drug/Non Drug [...] primary osteoarthritis of the ankle and/or foot (720991738) Primary osteoarthritis , left ankle and foot (M19.072) Active confirmed Problem Acquired hallux valgus (77102075) Hallux valgus (acquired), left foot (M20.12) Active confirmed Problem Acquired hammer toe of left foot (1875623328302325) Other hammer toe(s) (acquired), left foot (M20.42) Active confirmed Problem Lymphedema (33076284) Lymphedema (I89.0) Active confirmed Problem Left metatarsus adductus (disorder) (91294132626102397 ) 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 Vital Signs Blood pressure diastolic 60 mm Hg 12/31/2024 Height 5ft2in in 12/31/2024 Blood pressure systolic 126 mm Hg 12/31/2024 Weight 150 lbs 12/31/2024 BMI 27.43 kg/m2 12/31/2024 Procedures Procedure Date Ordered Date Performed Result Body Sit e , K3812-GGRDO/INJECT, JOINT/BURSA 03/20/2024 N/A , M4335-CWATI/INJECT, JOINT/BURSA 09/08/2024 N/A 83748, P2992-USNDW/INJECT, JOINT/BURSA 12/31/2024 N/A Encounters Encounter Location Date Provider Diagnosis [address] [address] 03/20/2024 Ratna Chua Sinus tarsitis of left foot M25.[address] [address] 09/08/2024 Ratna Chua Sinus tarsitis of left foot M25.[address] [address] 12/31/2024 Ratna Chua Sinus tarsitis of left foot M25.572 and Edema, lower extremity R60.[address] [address] 07/22/2024 Ratna Chua Assessments Encounter Date Diagnosis [...] X ray : Foot, left 3V 06/01/2021 84242, J0702- INJECT TENDON ORIGIN/INSER T 12/27/2022 38658, J0702- INJECT or DRAIN, JOINT/BUR SA 03/08/2023, Y6671-HHCBW/INJECT, JOINT/BURSA 0 03/20/2024, L8624-XSEUS/INJECT, JOINT/BURSA 0 09/08/2024, J5270-PGWVA/INJECT, JOINT/BURSA 1 , C1817-UQUFD/INJECT, JOINT/BURSA 0 10/16/2018 X ray : Ankle, right 3V 09/05/2011 Next Appt Details Provider Name:Ratna boyd, 04/15/2025 08:30:00 AM, [address] [facility], [place], [address], Insurance Providers Payer Name Payer Address Payer Phone Subscriber Number Group Number Insured Name Patient Relationship to Insured Coverage Start Date Coverage End Date Medicare National Govt Svcs Inc [address] [place] [address] [id number] Johnlisa Leandra Self - patient is the insured [employer] (Unicare) [address] [place] [address] [id number] Leonor Leandra Self - patient is [...] abdominoplasty 11/11 Pain Stimulator removed- 3 days [facility] 08/28/2018
--- OUTSIDE RECORDS SUMMARY | 2025-03-07 21:32 | XMS_ITS | Patient Health Record ---
Author Organization [facility] Address [address] [place] [address] Care Team Providers Care Optical Glass Inspector Name Role Phone Alma IVORY, Debbi Primary Care Provider Rashid Narayan Unavailable [phone] Allergies Allergen (clinical drug ingredient) Drug/Non Drug [...] Status Risk Notes Problem Colon cancer screening (346007692) Colon cancer screening (Z12.11) Active confirmed Problem Abdominal bloating (852492150) Abdominal bloating (R14.0) Active confirmed Problem Preprocedural examination (263092660507376) Preprocedural examination (Z01.818) Active confirmed Problem Irritable bowel syndrome characterized by constipation (864710510) Irritable bowel syndrome with constipation (K58.1) Active confirmed Problem Flatulence, eructation and gas pain (782324368) Abdominal gas pain (R14.1) Active confirmed Problem Long-term current use of drug therapy (932097376) High risk medications (not anticoagulants) long-term use (Z79.899) Active confirmed Vital Signs Blood pressure diastolic 77 mm Hg 09/11/2024 Height 62 in 09/11/2024 Blood pressure systolic 111 mm Hg 09/11/2024 Weight 140 lbs 09/11/2024 BMI 25.6 kg/m2 09/11/2024 Procedures Procedure Date Ordered Date Performed Result Body Sit e COLONOSCOPY 09/11/2024 N/A Encounters Encounter Location Date Provider Diagnosis [facility] [address] [place] [id number] 12/15/2024 Rashid Wilson [facility] [address] [place] [address] 09/11/2024 Rashid Wilson Colon cancer screeni ng Z12.11 ; Irritable bowel syndrome with constipation K58.1 ; Preprocedural examination Z01.818 and High risk medications (not anticoagulants) long-term use Z79.899 [facility] [address] [facility] [address] [place] [address] 10/04/2024 Rashid Wilson Assessments Encounter Date Diagnosis [...] Start Date Coverage End Date MEDICARE OF [place] [address] [place] [address] [id number] LEANDRA ESPINOZA Self - patient is the insured 8 [employer] ([employer]) [address] [place] [address] [phone] [id number] LEANDRA ESPINOZA Self - patient is the insured Medical (General) History Medical History History ICD Code 06/07/2004 Colonoscopy w/small internal hemorrhoids Uses Hctz for edema due to the Lyrica IBS--uses Hyoscyamine prn wi th relief--constipation, but stable on her bowel regimen Hyperlipidemia Shingles Denies MD,DM,CVA,Lung disease,renal dise ase Back pain with disc [...]
--- OUTSIDE RECORDS SUMMARY | 2025-03-07 21:32 | XMS_ITS | Clinical Summary ---
Author Organization [facility] Address [address] [place] [address] Care Team Providers Care Engineering Production Liaison Name Role Phone Debbi Marquez MD Primary Care Provider Social History Tobacco Use Types Packs/Day Years [...] 03/19/2024 Influenza Vaccine (#1) 2024 COVID-19 Vaccine ( - 2024-2 6 season) 2024 RSV Vaccine (60+ years old a nd patients) (1 - 1-dose 75+ series) 10/24/2027 Hepatitis B Vaccines Aged Out No long er eligible based on patient's age to complete this topic Insurance MEDICARE [facility] Care Teams Engineering Production Liaison Relationship Specialty Start Date End Date Debbi Marquez MD [address] [place] [address] PCP - General Internal Medicine 10/23/24
--- OUTSIDE RECORDS SUMMARY | 2025-03-07 21:32 | XMS_ITS | Clinical Summary ---
Author Organization [facility] ity Address [address] [place] [address] Care Team Providers Care Oil Distributor Name Role Phone Unavailable Primary Care Provider [...]
[2025-03-07 22:49] LABS: Appearance Urine Turbid; Glucose Urine UA Negative (Negative); PH 8.5 (5.0-9.0); Specific Gravity - Urine 1.010 (1.005-1.025); UMIC TRIGGER UACC YES
--- NOTE | 2025-03-07 23:02 | ED.GENADULT ---
HPI - General Adult General Chief complaint: Abdominal Pain Stated complaint: abd pain, ?gi blockage Time Seen by Provider: 03/07/25 23:00 Source: patient Mode of arrival: ambulatory Limitations: no limitations History of Present Illness ED Provider: Dr. Gibson [facility] narrative: This is a 74-year-old female history of small-bowel obstruction, appendectomy presenting to ER today for evaluation of nausea vomiting and a lower abdominal pain. Patient stated that this started all of a sudden today. She received Zofran and fentanyl in route. She had the patient stated this feels similar to her small bowel obstruction in the past. Did not pass any gas when she tries to poop today. Related Data Home Medications ?Medication ?Instructions ?Recorded ?Confirmed estradiol 2 mg tablet (Estrace) 2 mg PO 3XW 07/12/20 12/11/24 cholecalciferol (vitamin D3) 50 50 mcg PO BEDTIME 10/26/22 12/11/24 mcg (2,000 unit) tablet (Vitamin D3) magnesium 250 mg tablet 250 mg PO BEDTIME 01/29/24 12/11/24 amitriptyline 25 mg tablet 25 mg PO BEDTIME 11/18/24 12/11/24 uvlluuau-fnrhjhg-zyzm-lutein tablet 1 tab PO DAILY 11/18/24 12/11/24 naloxegol 12.5 mg tablet (Movantik) 12.5 mg PO DAILY 11/18/24 12/11/24 semaglutide 2.4 mg/0.3 mL mg subcut QWEEK 11/24/24 11/24/24 subcutaneous syringe naloxone 4 mg/actuation nasal 4 mg intranasal Q2M PRN for 12/15/24 12/11/24 spray (Narcan) patchulous eustachian tube Previous Rx's ?Medication ?Instructions ?Recorded hydrochlorothiazide 12.5 mg tablet 12.5 mg PO DAILY #90 tabs 11/22/24 trazodone 100 mg tablet 100 mg PO BEDTIME #90 tabs 11/22/24 atorvastatin 20 mg tablet 20 mg PO 3XW #90 tabs 02/22/25 amitriptyline 50 mg tablet 50 mg PO BEDTIME 90 days #90 tabs 03/02/25 oxycodone 5 mg tablet 5 mg PO BID PRN pain 30 days #60 03/04/25 tabs Allergies Allergy/AdvReac Type Severity Reaction Status Date / Time buprenorphine (Belbuca) Allergy Unknown stomach Verified 03/07/25 21:00 upset NSAIDS (Non-Steroidal Allergy Unknown Stomach Verified 03/07/25 21:00 Anti-Inflamma Upset Review of Systems Review of Systems: Pertinent review of systems as mentioned in HPI. All other system otherwise negative. [facility] Past Medical History [facility] Narrative: Medical history as mentioned in HPI Medical History Hx of right bundle branch block Patulous eustachian tube Small bowel obstruction Abdominal pain Osteoarthritis History of osteopenia Obesity (BMI 30.0-34.9) Prolapse of anterior vaginal wall Essential hypertension Dyslipidemia Irritable bowel syndrome Chronic pain syndrome Bilateral primary osteoarthritis of knee Spondylosis without myelopathy or radiculopathy, lumbar region Surgical History History of total right knee replacement Hx of colonoscopy Hx of laparoscopic gastric banding (~2004) History of tonsillectomy History of hysterectomy History of carpal tunnel surgery History of cholecystectomy History of laparoscopic appendectomy History of lumbar laminectomy History of reduction mammoplasty H/O abdominoplasty Hx of bariatric surgery Family History Family History Mother Diabetes mellitus Essential hypertension Cardiovascular disease Daughter Wernicke-Korsakoff syndrome (alcoholic) Social History Social History Household Members: None Household Members Other:: 0 Housing: House Are you a primary clinical care leader to a significant other at home: No Do you presently have visiting nurse or other home services: No Alcohol intake: never Patient Tobacco Use Status: Former Tobacco user Tobacco use type: Cigarette e-Cigarette/Vaping Use: Never Used Advance Directives: Yes Advance Directives on File: Yes Advance Directives Date on File: 12/22/21 service: No Current occupational status: retired Cognitive needs: No Hearing needs: No Vision needs: No Physical Exam ED Exam Exam: General: Pleasant, no distress, interacting appropriately Head: Normacephalic, atraumatic ENT: oral mucosa moist, neck supple, no tracheal deviation Gastrointestinal: Diffuse abdominal tenderness, there is distention appreciated on exam Neurological: Awake and alert, no facial droop noted Skin: Warm and dry Psychiatric: Appropriate mood and thoughts Vital Signs: Vital Signs - 24 hr 03/07/25 20:59 03/07/25 23:51 Temperature 9.5 F L 97.8 F Pulse Rate 97 86 Respiratory Rate 16 16 Blood Pressure 143/84 H 141/75 H Pulse Oximetry 98 98 Oxygen Delivery Method Room Air Room Air BMI result Body Mass Index 25.1 Medications Administered Discontinued Medications Generic Name Dose Route Start Last Admin Trade Name Freq PRN Reason Stop Dose Admin Sodium Chloride 1,000 mls @ 999 mls/hr 03/07/25 23:15 03/08/25 01:10 Ns IV 03/08/25 00:15 Infused .Q1H1M CROW Infusion Iohexol 100 ml 03/07/25 23:20 03/07/25 23:20 Iohexol 350 Mg/Ml 100 Ml Infus..Btl IV 03/07/25 23:21 80 ml ONCE ONE Administration Morphine Sulfate 4 mg 03/07/25 23:32 03/07/25 23:39 Morphine Sulfate 4 Mg/Ml Cartridge IVPUSH 03/07/25 23:33 4 mg ONCE ONE Administration Protocol Ondansetron HCl 4 mg 03/07/25 23:32 03/07/25 23:38 Ondansetron Hcl 4 Mg/2 Ml Vial IVPUSH 03/07/25 23:33 4 mg ONCE ONE Administration Medical Decision Making Medical Decision Making [facility] Narrative: This is a 74-year-old female presented hospital today for lower abdominal pain and nausea. History of SBO and appendectomy in the past. We will obtain a CT imaging to evaluate for any signs of SBO. IV fluid IV Zofran be given to the patient. Abdominal lab work will be obtained as well. Patient has slight leukocytosis on lab work. Patient's CT imaging does show signs of SBO with transition point in the right lower quadrant. Discussed the case with the general surgeon on-call Dr. Escobar who will plan to admit the patient does time. We will plan to place NG tube inpatient. Differential Diagnosis Differential Diagnoses: The differential diagnosis associated with the presentation includes SBO, colitis, constipation Lab Data 03/07/25 21:09 03/07/25 21:09 Labs: Lab Results 03/07/25 03/07/25 Range/Units 21:09 22:41 WBC 13.3 H (4.8-10.8) X10*3/uL RBC 4.71 (4.20-5.50) X10*6/uL Hgb 14.4 (12.0-16.0) g/dl Hct 42.1 (37.0-47.0) % MCV 89.4 (80.0-98.0) fL MCH 30.6 (27.0-33.0) pg MCHC 34.2 (31.0-35.0) g/dl RDW 13.1 (11.0-16.0) % Plt Count 427 H (160-400) X10*3/uL MPV 9.7 (9.4-12.3) fL Immature Gran % (Auto) 0.3 (0.0-0.4) % Neut % (Auto) 57.5 (45-73) % Lymph % (Auto) 33.9 (20-40) % [place] % (Auto) 6.5 (2-11) % Eos % (Auto) 1.0 (0-4) % Baso % (Auto) 0.8 (0-2) % Lymph # (Auto) 4.5 (1.2-4.9) X10*3/uL [place] # (Auto) 0.9 (0.1-1.2) X10*3/uL Eos # (Auto) 0.1 (0.0-0.4) X10*3/uL Baso # (Auto) 0.1 (0.0-0.2) X10*3/uL Abs Immat Gran (auto) 0.04 H (0.00-0.03) X10*3/uL Absolute Neuts (auto) 7.7 (2.0-8.3) x10*3/uL Absolute Nucleated RBC 0.000 (0.0-0.012) X10*3/uL Nucleated RBC % (auto) 0.0 (0.0-0.2) /100WBC Sodium 142 (135-145) mmol/L Potassium 3.3 (3.3-5.1) mmol/L Chloride 99 (96-108) mmol/L Carbon Dioxide 29 (22-29) mmol/L Anion Gap 17 (12-20) BUN 14 (9-16) mg/dL Creatinine 0.69 (0.5-1.4) mg/dL Estim Creat Clear Calc 63.8 Estimated GFR > 60 Random Glucose 124 H (60-115) mg/dL Calcium 10.5 H D (8.4-10.2) mg/dL Total Bilirubin 0.5 (0.0-1.0) mg/dL AST 35 H (5-31) U/L ALT 24 (0-31) U/L Alkaline Phosphatase 64 (39-117) U/L Total Protein 7.4 (6.5-8.0) g/dL Albumin 4.6 (3.5-5.0) g/dL Urine Color Yellow Urine Appearance Turbid Urine pH 8.5 (5.0-9.0) Ur Specific [place] 1.010 (1.005-1.025) Urine Protein Negative (Neg-Trace) mg/dL Urine Glucose (UA) Negative (Negative) mg/dL Urine Ketones 15 (Negative) mg/dL Urine Blood Negative (Negative) Urine Nitrite Negative (Negative) Ur Leukocyte Esterase Trace H (Negative) Urine RBC 0-2 (0-2) /HPF Urine WBC 0-5 (0-5) /HPF Ur Squamous Epith Cells 0-2 (0-2) /HPF Urine Bacteria None Seen (None Seen) Hyaline Casts 0-2 (0-2) /LPF Independent Interpretation I performed an independent interpretation of an: CT Scan Radiology Impression Discussion of test interpretation with radiology: I have reviewed the radiologist's reading. Critical Care Time Critical Care Time Critical Care Time: Yes Total Critical Care Time: 36 Attestation: Time is exclusive of separately billable procedures. Time includes: direct patient care, patient reassessment, coordination of patient care, interpretation of data (laboratory data, pulse oximetry, arterial blood gases and chest xrays), review of patient's medical records, medical consultation and documentation of patient care. Procedures excluded from critical care time: central intravenous line placement and electrocardiography. Discharge Plan Discharge Clinical Impression: SBO (small bowel obstruction) Patient Disposition: Admitted As Inpatient Print Language: Thai
[2025-03-07] MEDS: iohexoL 350 MG/ML 100 ML INFUS..BTL IV (23:20)
[2025-03-07 23:51] VITALS: BP 141/75; PULSE 86; RESP 16; TEMP 36.6; O2SAT 98
[2025-03-08] MEDS: Lactated Ringers 1,000 ML 100 ML IVCONT ×3 (02:10→21:21)
--- NOTE | 2025-03-08 03:14 | PC.NURSE ---
NG tube inserted into right nare at 56 cm. Patient tolerated well. Placement confirmed by xray and connected to low intermittent suction. Pt medicated for pain as charted. Breathing unlabored. Skin pwd. Pt has LR infusing @ 100 ml/hr. Call [place] within reach.
[2025-03-08 05:26] VITALS: BP 131/72; PULSE 88; RESP 16; TEMP 36.2; O2SAT 95
--- NOTE | 2025-03-08 08:26 | PHA.MEDREC ---
Pharmacy Consult ? Medication Reconciliation Pharmacy has completed the medication reconciliation. Spoke to patient to confirm medication list. Per patient, she does not take estradiol (discontinued about 3 weeks ago) nor movantik anymore. She takes atorvastatin 20 mg 3x/week on sunday, sunday and sunday and she injects semaglutide 2.4 mg once a week on sunday. She also takes bisacodyl 10 mg and colace 200 mg daily in the morning. Last dose of medications was yesterday 03/07/25 morning.
--- NOTE | 2025-03-08 08:40 | PC.NURSE ---
Assumed care of pt at 0700. Pt resting on stretcher comfortably with eyes closed, respirations even and unlabored, no increased wob/sob noted, maintaining O2 sat >92% on RA. NG tube in place with intermittent low suction- brown gastric contents present in suction canister. Pt denies pain/complaints at this time. Call [place] within reach, all needs met at this time.
[2025-03-08 09:00] VITALS: BP 137/74; PULSE 76; RESP 15; TEMP 36.6; O2SAT 96
--- NOTE | 2025-03-08 09:00 | PM.HPGS ---
History of Present Illness History of Present Illness Date of Service: 03/08/25 Chief complaint: partial SB obstruction Narrative: Leandra Galvez is a 74 year old female known to the service, with a history of a lap band procedure in the distant past, admitted because of partial small-bowel obstruction She describes having abdominal pain starting yesterday afternoon after lunch. She says that this persisted throughout the afternoon. She describes this has being diffuse. She also had nausea without any vomiting. She therefore came to the emergency room late last night because of this persistent abdominal pain. She has had multiple admissions for partial small-bowel obstruction likely from postop adhesions. She does have a history of multiple abdominal surgeries including appendectomy, hysterectomy and lap band procedure. She is being the bariatric service in [place] for her lap band and she is being worked up currently for removal of the lap band. She is on a GLP 1 medication although her BMI is actually down to 25 now. She had an NG tube placed in the ER. She says she started to pass flatus this morning. She feels much better. Review of Systems Constitutional: Constitutional: Denies chills and Denies fever(s) Cardiovascular: Cardiovascular: Denies chest pain, Denies dyspnea and Denies dyspnea on exertion Respiratory: Respiratory: Denies cough, Denies dyspnea and Denies dyspnea on exertion Gastrointestinal: Gastrointestinal: Denies hematochezia and Denies change in bowel habits Genitourinary: Genitourinary: Denies hematuria Musculoskeletal: Musculoskeletal: Denies back pain and Denies limited range of motion Neurologic: Denies focal weakness and Denies convulsions Psychiatric: Psychiatric: Denies depression and Denies mood swings [facility] Past Medical History Medical History Hx of right bundle branch block Patulous eustachian tube Small bowel obstruction Abdominal pain Osteoarthritis History of osteopenia Obesity (BMI 30.0-34.9) Prolapse of anterior vaginal wall Essential hypertension Dyslipidemia Irritable bowel syndrome Chronic pain syndrome Bilateral primary osteoarthritis of knee Spondylosis without myelopathy or radiculopathy, lumbar region Family History Family History Mother Diabetes mellitus Essential hypertension Cardiovascular disease Daughter Wernicke-Korsakoff syndrome (alcoholic) Surgical History Surgical History History of total right knee replacement Hx of colonoscopy Hx of laparoscopic gastric banding (~2004) History of tonsillectomy History of hysterectomy History of carpal tunnel surgery History of cholecystectomy History of laparoscopic appendectomy History of lumbar laminectomy History of reduction mammoplasty H/O abdominoplasty Hx of bariatric surgery Social History Social History Household Members: None Household Members Other:: 0 Housing: House Are you a primary home care manager to a significant other at home: No Do you presently have visiting nurse or other home services: No Alcohol intake: never Patient Tobacco Use Status: Former Tobacco user Tobacco use type: Cigarette e-Cigarette/Vaping Use: Never Used Advance Directives: Yes Advance Directives on File: Yes Advance Directives Date on File: 12/22/21 Nutrition Risks: Gastrointestinal Malabsorption service: No Current occupational status: retired Cognitive needs: No Hearing needs: No Vision needs: No Meds Allergies Allergy/AdvReac Type Severity Reaction Status Date / Time buprenorphine (Belbuca) Allergy Unknown stomach Verified 03/07/25 21:00 upset NSAIDS (Non-Steroidal Allergy Unknown Stomach Verified 03/07/25 21:00 Anti-Inflamma Upset Active Medications: Current Medications Acetaminophen (Acetaminophen 325 Mg Tablet) 650 mg PO Q6H PRN PRN Reason: Pain, Mild 1-3,fever,headache Amitriptyline HCl (Amitriptyline Hcl 25 Mg Tablet) 25 mg PO BEDTIME CROW Calcium Carbonate (Calcium Carbonate 750 Mg Tab.Chew) 750 mg PO Q4H PRN PRN Reason: Heartburn Heparin Sodium (Porcine) (Heparin Sodium,Porcine 5,000 Unit/Ml Vial) 5,000 unit SUBCUT Q12H CROW Hydrochlorothiazide (Hydrochlorothiazide 12.5 Mg Tablet) 12.5 mg PO DAILY CROW; Protocol Lactated Ringer's (Lr) 1,000 mls @ 100 mls/hr IVCONT .Q10H CROW Last Admin: 03/08/25 02:10 Dose: 100 mls/hr Morphine Sulfate (Morphine Sulfate 4 Mg/Ml Cartridge) 2 mg IVPUSH Q3H PRN; Protocol PRN Reason: Pain, Severe (Pain Scale 7-10) Last Admin: 03/08/25 06:29 Dose: 2 mg Ondansetron HCl (Ondansetron Hcl 4 Mg/2 Ml Vial) 4 mg IVPUSH Q6H PRN PRN Reason: Nausea and Vomiting Sodium Chloride (0.9 % Sodium Chloride Flush 3 Ml Syringe) 3 ml IVFLUSH QSH[facility]HI [facility] Last Admin: 03/08/25 08:13 Dose: Not Given Home Medications ?Medication ?Instructions ?Recorded ?Confirmed ?Last Taken ?Type cholecalciferol (vitamin D3) 50 50 mcg PO DAILY 10/26/22 03/08/25 03/07/25 History mcg (2,000 unit) tablet (Vitamin D3) magnesium 250 mg tablet 250 mg PO DAILY 01/29/24 03/08/25 03/07/25 History azchohoa-bggjxjm-rycy-lutein tablet 1 tab PO DAILY 11/18/24 03/08/25 03/07/25 History semaglutide 2.4 mg/0.3 mL 2.4 mg subcut FR 11/24/24 03/08/25 03/06/25 History subcutaneous syringe atorvastatin 20 mg tablet 20 mg PO MOWEFR 03/08/25 03/08/25 03/06/25 History bisacodyl 5 mg tablet,delayed 10 mg PO DAILY 03/08/25 03/08/25 03/07/25 History release (Dulcolax (bisacodyl)) docusate sodium 100 mg capsule 200 mg PO DAILY 03/08/25 03/08/25 03/07/25 History (Colace) Physical Exam Vital Signs: Vital Signs: Last Vital Signs Temp 97.2 F 03/08/25 05:26 Pulse 88 03/08/25 05:26 Resp 16 03/08/25 05:26 BP 131/72 03/08/25 05:26 Pulse Ox 95 03/08/25 05:26 O2 Del Method Room Air 03/08/25 05:26 BMI result Body Mass Index 25.1 Const: General: comfortable and no acute distress Orientation/consciousness: patient oriented x3 Neck: Neck: Yes no lymphadenopathy Resp: Auscultation: clear to auscultation bilaterally Cardio: Rhythm: regular rhythm GI: Inspection: No distended Palpation (GI): Soft to palpation, nontender and no guarding Neuro: General: patient oriented x3 Results Results Labs: Short CBC 03/07/25 Range/Units 21:09 WBC 13.3 H (4.8-10.8) X10*3/uL Hgb 14.4 (12.0-16.0) g/dl Hct 42.1 (37.0-47.0) % Plt Count 427 H (160-400) X10*3/uL BMP 03/07/25 21:09 Sodium 142 Potassium 3.3 Chloride 99 Carbon Dioxide 29 BUN 14 Creatinine 0.69 Calcium 10.5 H D Liver Function 03/07/25 Range/Units 21:09 Total Bilirubin 0.5 (0.0-1.0) mg/dL AST 35 H (5-31) U/L ALT 24 (0-31) U/L Alkaline Phosphatase 64 (39-117) U/L Albumin 4.6 (3.5-5.0) g/dL Urine 03/07/25 Range/Units 22:41 Urine Color Yellow Urine Appearance Turbid Urine pH 8.5 (5.0-9.0) Ur Specific [place] 1.010 (1.005-1.025) Urine Protein Negative (Neg-Trace) mg/dL Urine Glucose (UA) Negative (Negative) mg/dL Abdomen CT scan report/results: report reviewed and image reviewed CT scan - pelvis: report reviewed and image reviewed Additional studies: CT abdomen and pelvis with contrast Comparison: CT/REG/SR - CT ABDOMEN PELVIS W IV CON - 11/18/24 06:20 EDT Findings: There is mild bibasilar atelectasis. The patient is status post cholecystectomy. There are a few tiny hepatic cysts. The pancreas, spleen, adrenal glands, and kidneys are unremarkable. There is a gastric lap band in appropriate position. There are dilated small bowel loops in the mid and lower abdomen with an apparent transition point to decompressed bowel in the right lower quadrant consistent with small-bowel obstruction. There is trace free fluid. There is no free air. The patient is status post appendectomy. The patient is status post hysterectomy. The bladder is unremarkable. There are no enlarged lymph nodes. The aorta is normal in diameter. There are degenerative changes in the lower lumbar spine. There is no fracture or suspicious lytic or sclerotic lesion. IMPRESSION: 1. Findings consistent with small-bowel obstruction with transition point in the right lower quadrant. 2. Chronic findings as above. This document has been electronically signed by: Leroy Taylor MD on 03/08/2025 00:48:44 Assessment and Plan (1) SBO (small bowel obstruction): Status: Acute [age] year female with a history of lap band procedure, here the area because of the abdominal pain. I have reviewed her CAT scan images and this shows suggestion of partial small-bowel obstruction. She is known to the service for previous episodes. She had an NG-tube placed in the ER early this morning. Her symptoms have improved significantly. She is starting to pass flatus. She does not have any significant tenderness in her abdomen is nondistended. I plan to clamp the NG tube and possibly remove this later on today. She has a very benign exam. She understands the plan well. She looks well overall. Quality Stroke Does the patient have a stroke diagnosis?: No VTE Prior VTE?: No VTE Risk Level:: Medical - moderate - high VTE Device Contraindication: N/A - Device Ordered VTE Drug Contraindication: N/A - Med Ordered Procedures Date of Service Date of Service: 03/08/25
[2025-03-08 09:14] VITALS: BP 137/74
--- NOTE | 2025-03-08 13:49 | PM.EVENT ---
Event Note Date of Service: 03/08/25 Event Note: Seen on early afternoon rounds Continues to feel well Denies abdominal pain Says she has been passing flatus more consistently all morning NG tube output minimal this has morning Abdomen is soft, benign, nontender and nondistended KUB unremarkable I removed the NG tube Okay to have sips of clear liquids for today Time Spent With Patient Time: Total time managing care of this patient today ____ minutes.
[2025-03-08 15:10] VITALS: BP 137/70; PULSE 86; RESP 16; TEMP 36.6; O2SAT 97
--- NOTE | 2025-03-08 15:21 | PC.NURSE ---
NG tube removed at bedside by MD Escobar. Per WILLIAM dotson to have sips of clear water.
[2025-03-08 17:59] VITALS: BP 137/67; PULSE 95; RESP 19; TEMP 36.7; O2SAT 96
[2025-03-08 18:01] VITALS: BMI 25.1
[2025-03-08 20:00] VITALS: BP 116/83; PULSE 94; RESP 20; TEMP 36.2; O2SAT 96
[2025-03-09 04:00] VITALS: BP 112/55; PULSE 77; RESP 16; TEMP 36.1; O2SAT 97
[2025-03-09 07:29] VITALS: BP 131/72; PULSE 83; RESP 14; TEMP 36.8; O2SAT 94
--- NOTE | 2025-03-09 08:04 | P.PNGS_ITS ---
Subjective Subjective Date of Service: 03/09/25 <Yesy Bowen PA-C - Last Filed: 03/09/25 08:07> 03/09/25 <Corey Escobar MD - Last Filed: 03/09/25 08:11> Interval history: NGT removed and started on clear liquids yesterday. Feels well this morning. Denies abd pain. Tolerating clear liquids and feels hungry. Passing flatus. <Yesy Bowen PA-C - Last Filed: 03/09/25 08:07> Physical Exam 2 Vital Signs: Vital Signs: Last Vital Signs Temp 98.3 F 03/09/25 07:29 Pulse 83 03/09/25 07:29 Resp 14 03/09/25 07:29 BP 131/72 03/09/25 07:29 Pulse Ox 94 03/09/25 07:29 O2 Del Method Room Air 03/09/25 07:29 BMI result Body Mass Index 25.1 <Yesy Bowen PA-C - Last Filed: 03/09/25 08:07> Const: General: comfortable, no acute distress and alert <Yesy Bowen PA-C - Last Filed: 03/09/25 08:07> Orientation/consciousness: patient oriented x3 <Yesy Bowen PA-C - Last Filed: 03/09/25 08:07> Resp: Effort & Inspection: normal respiratory effort <Yesy Bowen PA-C - Last Filed: 03/09/25 08:07> GI: Other: soft, nondistended nontender <Yesy Bowen PA-C - Last Filed: 03/09/25 08:07> Palpation (GI): no guarding <Yesy Bowen PA-C - Last Filed: 03/09/25 08:07> Percussion: Yes normal to percussion <Yesy Bowen PA-C - Last Filed: 03/09/25 08:07> Skin: General skin exam: no rashes or lesions noted <ILIANA Jung Last Filed: 03/09/25 08:07> Neuro: General: patient oriented x3 and moves all extremities <ILIANA Jung Last Filed: 03/09/25 08:07> Objective Data Active Medications Acetaminophen (Acetaminophen 325 Mg Tablet) 650 mg PO Q6H PRN PRN Reason: Pain, Mild 1-3,fever,headache Amitriptyline HCl (Amitriptyline Hcl 25 Mg Tablet) 25 mg PO BEDTIME [facility] Last Admin: 03/08/25 19:50 Dose: 25 mg Documented By: DEBORA Calcium Carbonate (Calcium Carbonate 750 Mg Tab.Chew) 750 mg PO Q4H PRN PRN Reason: Heartburn Heparin Sodium (Porcine) (Heparin Sodium,Porcine 5,000 Unit/Ml Vial) 5,000 unit SUBCUT Q12H [facility] Hydrochlorothiazide (Hydrochlorothiazide 12.5 Mg Tablet) 12.5 mg PO DAILY [facility]; Protocol Last Admin: 03/08/25 09:14 Dose: 12.5 mg Documented By: ROSA Lactated Ringer's (Lr) 1,000 mls @ 100 mls/hr IVCONT .Q10H [facility] Last Admin: 03/08/25 21:21 Dose: 100 mls/hr Documented By: DEBORA Morphine Sulfate (Morphine Sulfate 4 Mg/Ml Cartridge) 2 mg IVPUSH Q3H PRN; Protocol PRN Reason: Pain, Severe (Pain Scale 7-10) Last Admin: 03/08/25 06:29 Dose: 2 mg Documented By: JULIO Ondansetron HCl (Ondansetron Hcl 4 Mg/2 Ml Vial) 4 mg IVPUSH Q6H PRN PRN Reason: Nausea and Vomiting Sodium Chloride (0.9 % Sodium Chloride Flush 3 Ml Syringe) 3 ml IVFLUSH QSHIFT [facility] Last Admin: 03/08/25 22:38 Dose: Not Given Documented By: DEBORA Non-Admin Reason: IV Running <Yesy Bowen PA-C - Last Filed: 03/09/25 08:07> Labs CBC & Chem 7: 03/07/25 21:09 03/07/25 21:09 <Yesy Bowen PA-C - Last Filed: 03/09/25 08:07> Procedures Date of Service Date of Service: 03/09/25 <Yesy Bowen PA-C - Last Filed: 03/09/25 08:07> 03/09/25 <Corey Escobar MD - Last Filed: 03/09/25 08:11> Progress Note: A&P Assessment and plan (1) SBO (small bowel obstruction): Status: Acute <Yesy Bowen PA-C - Last Filed: 03/09/25 08:07> Assessment and Plan: Feels well Denies abdominal pain No nausea or vomiting Tolerating clear liquids Abdomen is soft, benign and nontender and nondistended Clinically doing very well Diet as tolerated Likely to be discharged home later on today Seen and examined independently <Corey Escobar MD - Last Filed: 03/09/25 08:11> Assessment and Plan: NGT removed and now tolerating clear liquids, continued GI function. VSS. Abd exam benign- soft, nontender nondistended. Will advance to solid diet. Possibly home later today if tolerating. patient comfortable with plan. Encouraged continued OOB/ambulation. <Yesy Bowen PA-C - Last Filed: 03/09/25 08:07> Time Spent With Patient Time: Total time managing care of this patient today ____ minutes. <Yesy Bowen PA-C - Last Filed: 03/09/25 08:07> Quality Stroke Does the patient have a stroke diagnosis?: No <Yesy Bowen PA-C - Last Filed: 03/09/25 08:07> VTE Prior VTE?: No <Yesy Bowen PA-C - Last Filed: 03/09/25 08:07> VTE Risk Level:: Medical - moderate - high <Yesy Bowen PA-C - Last Filed: 03/09/25 08:07> VTE Device Contraindication: N/A - Device Ordered <Yesy Bowen PA-C - Last Filed: 03/09/25 08:07> VTE Drug Contraindication: N/A - Med Ordered <Yesy Bowen PA-C - Last Filed: 03/09/25 08:07>
[2025-03-09] MEDS: 0.9 % Sodium Chloride Flush 3 ML SYRINGE IVFLUSH (08:14)
--- NOTE | 2025-03-09 13:44 | PC.NURSE ---
Pt tolerated regular lunch try. NO N&V No abd pain
--- NOTE | 2025-03-09 14:07 | PM.DS ---
DS: Providers Provider Date of admission: 03/08/25 01:15 Date of discharge: 03/09/25 Primary care physician: Debbi Marquez MD Attending physician on admission: Corey Escobar Attending physician on discharge: Corey Escobar DS: Diagnosis Discharge Diagnosis (1) SBO (small bowel obstruction): Status: Acute DS: Summary Hospital Course Hospital Course: HPI AT ADMISSION: Leandra Galvez is a 74 year old female known to the service, with a history of a lap band procedure in the distant past, admitted because of partial small-bowel obstruction. She describes having abdominal pain starting yesterday afternoon after lunch. She says that this persisted throughout the afternoon. She describes this has being diffuse. She also had nausea without any vomiting. She therefore came to the emergency room late last night because of this persistent abdominal pain. She has had multiple admissions for partial small-bowel obstruction likely from postop adhesions. She does have a history of multiple abdominal surgeries including appendectomy, hysterectomy and lap band procedure. She is being the bariatric service in [place] for her lap band and she is being worked up currently for removal of the lap band. She is on a GLP 1 medication although her BMI is actually down to 25 now. CAT scan images and this shows suggestion of partial small-bowel obstruction. She had an NG tube placed in the ER. She says she started to pass flatus this morning. She feels much better. HOSPITAL COURSE: She was admitted to the surgical service for further treatment of the SBO. She had an NGT inserted in the ED and her symptoms improved significantly. She began to pass flatus. Her abd exam was very benign. Her NGT was clamped and she was reassessed later in the day and remained asymptomatic with scant output. The NGT was therefore removed and she was started on clear liquids which she was tolerating. She was advanced to a solid diet the following day. On the day of discharge, HD #2, she was tolerating a solid diet without nausea, vomiting or abdominal pain. She had good GI function and was moving her bowels. Her abdominal exam remained benign. She was discharged to home on 03/09/25 in stable condition. She is to follow up with her PCP upon discharge. Status at Discharge Functional status at discharge: independent ambulation Overall status at discharge: patient is progressing back to baseline Time Attestation Discharge Coordination Time (in mins): 25 Quality: Safe Use of Opioids Does Pt have an Active Cancer Diagnosis on the Problem List?: No Quality: Stroke Does the patient have a stroke diagnosis?: No Physical Exam Vital Signs: Vital Signs: Last Vital Signs Temp 98.3 F 03/09/25 07:29 Pulse 83 03/09/25 07:29 Resp 14 03/09/25 07:29 BP 131/72 03/09/25 07:29 Pulse Ox 94 03/09/25 07:29 O2 Del Method Room Air 03/09/25 07:29 BMI result Body Mass Index 25.1 Const: General: comfortable, no acute distress and alert Orientation/consciousness: patient oriented x3 Resp: Effort & Inspection: normal respiratory effort GI: Other: soft, nontender Inspection: No distended Neuro: General: patient oriented x3 and moves all extremities Discharge Plan Discharge Anticipated Discharge Date/Time: 03/09/25 10:00 Patient Disposition: Home, Self-Care Discharge Diagnosis: SBO Referrals: Debbi Marquez MD [Primary Care Provider, Internal Medicine] - 1 Week Discharge Medications: Continued hydrochlorothiazide 12.5 mg tablet 12.5 mg PO DAILY Qty: 90 1RF trazodone 100 mg tablet 100 mg PO BEDTIME Qty: 90 3RF amitriptyline 50 mg tablet 50 mg PO BEDTIME 90 Days Qty: 90 0RF Rx Instructions: 1 tab daily at bedtime [id number]-[id number] Tablet 1 tab PO DAILY cholecalciferol (vitamin D3) [Vitamin D3] 50 mcg (2,000 unit) Tablet 50 mcg PO DAILY atorvastatin 20 mg tablet 20 mg PO MOWEFR docusate sodium [Colace] 100 mg Capsule 200 mg PO DAILY bisacodyl [Dulcolax (bisacodyl)] 5 mg Tablet,Delayed Release (Dr/Ec) 10 mg PO DAILY magnesium 250 mg tablet 250 mg PO DAILY semaglutide 2.4 mg/0.3 mL syringe 2.4 mg subcut FR oxycodone 5 mg tablet 5 mg PO BID PRN (Reason: pain) 30 Days Qty: 60 0RF Rx Instructions: Partial Fill upon patient request. Discharge Orders: Discharge Order (Routine); Ordered 03/09/25 Ordered By: Yesy Bowen Diet: Advance to usual diet Activity on Discharge: As tolerated Stand Alone Forms: Patient Portal Discharge page Print Language: Samoan Activity Restrictions/Additional Instructions: Follow up with your PCP. Call Your Doctor If: ? ? -Your temperature exceeds 101.5? F? ? ? -You experience excessive abdominal pain ? ? -You experience continued vomiting/nausea Care Plan Goals: Return to baseline health and resume normal activities. Health Concerns: SBO Plan of Treatment: Supportive with NGT decompression, bowel rest, IVF Diet as tolerated Follow up with PCP Assessment: Improved
--- NOTE | 2025-03-09 14:56 | MHC.CM.PN ---
PT IS FULLY INDEPENDENT WITH CARE AND MOBILITY SHE HAS A HCP AND MOLST ON FILE PCP: JEREMY THAKKAR IMM DELIVERED PT CLEARED TO DC HOME TODAY [facility] NO SERVICES VIA SELF ARRANGED TRANSPORT
== END 2025-03-09 14:51 | disposition home or self-care (01) | DRG 390 ==
LOC: HO.ED 03-08 01:22 → HO.EDOVER 03-08 01:29 → HO.S3 03-08 16:56
PROVIDERS: Admitting Provider Surgery; Emergency Provider Student in an Organized Health Care Education/Training Program; PCP Internal Medicine; Visit Provider Surgery
DX: K56.600 Partial intestinal obstruction, unspecified as to cause (principal); Z79.899 Other long term (current) drug therapy
CPT/HCPCS: 36415; 71045; 74018; 74177; 80053; 81001; 85025; 99285; J2270; J2405; J7120; Q9967

== ENCOUNTER → 2025-03-07 23:03 | Outpatient (BNV) | payer MEDICARE, OTHER, SELFPAY | PROVIDERS: Emergency Provider Student in an Organized Health Care Education/Training Program; PCP Internal Medicine; Visit Provider Radiology Diagnostic Radiology | DX: R10.9 Unspecified abdominal pain (principal) | CPT/HCPCS: 74177 ==

== ENCOUNTER 2025-03-08 01:15 | Outpatient (BNV) | payer MEDICARE, OTHER, SELFPAY | END 2025-03-08 01:55 | PROVIDERS: Admitting Provider Surgery; Emergency Provider Student in an Organized Health Care Education/Training Program; PCP Internal Medicine; Visit Provider Radiology Diagnostic Radiology | DX: Z46.59 Encounter for fitting and adjustment of other gastrointestinal appliance and device (principal) | CPT/HCPCS: 71045 ==

== ENCOUNTER → 2025-03-08 01:15 | Outpatient (BNV) | payer MEDICARE, OTHER, SELFPAY | PROVIDERS: Admitting Provider Surgery; Emergency Provider Student in an Organized Health Care Education/Training Program; PCP Internal Medicine; Visit Provider Surgery | DX: K56.609 Unspecified intestinal obstruction, unspecified as to partial versus complete obstruction (principal) | CPT/HCPCS: 99222; 99238; 99499 ==